=== PATIENT | female | born 1955 | race Caucasian/White ===

== ENCOUNTER 2025-02-25 06:29 | Inpatient (IN) ==
--- NOTE | 2025-02-06 11:27 | PAT Medication Instructions ---
Medication Instructions Date of Service February 06, 2025 Home Medications amlodipine 5 mg tablet 5 mg PO BID ascorbic acid (vitamin C) 500 mg tablet (Vitamin C) 500 mg PO DAILY cholecalciferol (vitamin D3) 25 mcg (1,000 unit) capsule (Vitamin D3) 25 mcg PO DAILY etanercept 50 mg/mL (1 mL) subcutaneous cartridge (Enbrel Mini) 50 mg subcut WK hydrochlorothiazide 25 mg tablet 25 mg PO QAM leflunomide 10 mg tablet 10 mg PO QAM magnesium 200 mg tablet 200 mg PO DAILY multivitamin 1 tab PO DAILY omega-3 fatty acids 1,000 mg PO DAILY potassium chloride 10 mEq tablet,extended release (Klor-Con) 20 meq PO QAM spironolactone 25 mg tablet 25 mg PO QAM zolpidem 10 mg tablet 10 mg PO HS PRN prn MEDICATION INSTRUCTIONS: STOP taking 2 weeks before surgery omega-3 fatty acids 1,000 mg PO DAILY DO NOT take the morning of surgery potassium chloride 10 mEq tablet,extended release (Klor-Con) 20 meq PO QAM spironolactone 25 mg tablet 25 mg PO QAM ascorbic acid (vitamin C) 500 mg tablet (Vitamin C) 500 mg PO DAILY cholecalciferol (vitamin D3) 25 mcg (1,000 unit) capsule (Vitamin D3) 25 mcg PO DAILY hydrochlorothiazide 25 mg tablet 25 mg PO QAM magnesium 200 mg tablet 200 mg PO DAILY multivitamin 1 tab PO DAILY Take morning of surgery With a small sip of water, OTHERWISE NOTHING TO EAT OR DRINK AFTER MIDNIGHT: amlodipine 5 mg tablet 5 mg PO BID Take evening before surgery amlodipine 5 mg tablet 5 mg PO BID zolpidem 10 mg tablet 10 mg PO HS PRN prn Other Notes ASK your prescriber for instructions: etanercept 50 mg/mL (1 mL) subcutaneous cartridge (Enbrel Mini) 50 mg subcut WK leflunomide 10 mg tablet 10 mg PO QAM If you have any questions please call us at [phone] or [phone] or [phone] or [phone]
--- NOTE | 2025-02-11 11:23 | Anesthesiology Consultation ---
Date of Service February 11, 2025 Assessment & Plan (1) Encounter for pre-operative examination: - Infectious disease screening: Per assessment on 02/11/25- No known recent infectious disease contacts or current infectious disease symptoms. - Hx Rheumatoid arthritis: Preop c-spine xray performed 02/11/25 notes Translational motion at C3-4. - Patient acceptable risk for surgery pending surgeon-ordered PCP clearance (Michaela METZGER/RAMANA Núñez, PCP "writing note" per patient). Chart Review Chart Review: Patient seen in Pre Admission Testing Teaching & Discussion Pre-Anesthesia Teaching/Discussion Notes: Instructed NPO after midnight before surgery,except medications with 15 cc of water. Medication instructions provided according to the PAT guidelines. History Surgery Operation Date: 02/25/25 07:45 Proposed Procedures p L2-L5 Decompression and Fusion, Possible L1-L2 Decompression and Fusion, Spinal Cord Monitoring - Adriel Nova, Height/Weight Height: 5 ft 4 in Weight: 99.8 kg Allergies Allergy/AdvReac Type Severity Reaction Status Date / Time ampicillin Allergy Severe Rash Verified 01/31/25 08:54 terbinafine Allergy Severe Diarrhea Verified 01/31/25 08:54 Medications Home Medications Medication Instructions Recorded Confirmed Last Taken amlodipine 5 mg tablet 5 mg PO BID 01/31/25 01/31/25 Unknown ascorbic acid (vitamin C) 500 mg 500 mg PO DAILY 01/31/25 01/31/25 Unknown tablet (Vitamin C) cholecalciferol (vitamin D3) 25 25 mcg PO DAILY 01/31/25 01/31/25 Unknown mcg (1,000 unit) capsule (Vitamin D3) etanercept 50 mg/mL (1 mL) 50 mg subcut WK 01/31/25 01/31/25 Unknown subcutaneous cartridge (Enbrel Mini) hydrochlorothiazide 25 mg tablet 25 mg PO QAM 01/31/25 01/31/25 Unknown leflunomide 10 mg tablet 10 mg PO QAM 01/31/25 01/31/25 Unknown magnesium 200 mg tablet 200 mg PO DAILY 01/31/25 01/31/25 Unknown multivitamin 1 tab PO DAILY 01/31/25 01/31/25 Unknown omega-3 fatty acids 1,000 mg PO DAILY 01/31/25 01/31/25 Unknown potassium chloride 10 mEq 20 meq PO QAM 01/31/25 01/31/25 Unknown tablet,extended release (Klor-Con) spironolactone 25 mg tablet 25 mg PO QAM 01/31/25 01/31/25 Unknown zolpidem 10 mg tablet 10 mg PO HS PRN prn 01/31/25 01/31/25 Unknown Past Medical History Medical History History of DVT (deep vein thrombosis) (2019) BL LE, was on AC x4 months (then discontinued) No issues since Hypertension Rheumatoid arthritis Follows with Dr Ho/RAMANA Sheffield Exercise / Class Metabolic Activity III < 4 Walking/Shop/Light housework Past Surgical History Surgical History History of bunionectomy of both great toes History of cardiac cath (~2019) no stents History of cataract surgery R/L History of colonoscopy History of neuroma removal- right foot History of tonsillectomy History of wisdom tooth extraction Past Anesthesia History No Hx of Anesthesia Complications and No Family Hx of Anesthesia Complications History of PONV No Hx of PONV and No Hx of Motion Sickness Social History Smoking Status: Never smoker Do You Dip or Chew Tobacco: No Hx Alcohol Use: Yes alcohol intake frequency: holidays/special occasions only Hx Substance Use: No substance use type: does not use Review of Systems Patient denies chest pain, shortness of breath, fever, chills, cough, wheezing. Physical Exam Vital Signs BP 135/90 P 98 TEMP 97.6 SP02 95%RA RESP 16 Physical Full cervical extension range of motion. Full TMJ range of motion. TMD > 3.5 finger breaths Mallampati Score III Dentition: intact Lungs: clear throughout to auscultation Cardiac: regular rate, regular rhythm with occasional extra beat, no murmurs noted Spine: normal Carotid arteries: negative bruit Extremities: no LE edema Lab Results Anesthesia Preop Results Results Anesthesia Widget: WBC 12.95 K/ul (4.8-10.8) H 02/11/25 Hgb 12.1 g/dl (12.0-16.0) 02/11/25 Hct 36.7 % (37.0-47.0) L 02/11/25 Plt 414 K/uL (130-400) H 02/11/25 Na 133 mmol/L (136-145) L 02/11/25 K 3.9 mmol/L (3.5-5.1) 02/11/25 Cl 97 mmol/L (98-107) L 02/11/25 CO2 26 mmol/L (21-32) 02/11/25 BUN 13 mg/dl (6-23) 02/11/25 Creat 1.03 mg/dl (0.6-1.2) 02/11/25 Glucose Level 115 mg/dl (70-99(Fasting)) H 02/11/25 PT 10.8 Seconds (9.0-12.0) 02/11/25 PTT 27 Seconds (21-31) 02/11/25 INR 1.0 (0.9-1.1) 02/11/25 Urine Color Yellow 02/11/25 Urine Appearance Clear (Clear) 02/11/25 Urine pH 6.5 (4.5-7.5) 02/11/25 Urine Specific Cunningham 1.001 (1.000-1.030) 02/11/25 Urine Protein Negative (Negative) 02/11/25 Urine Glucose (UA) Negative (Negative) 02/11/25 Urine Ketones Negative (Negative) 02/11/25 Urine Blood Negative (Negative) 02/11/25 Urine Nitrite Positive (Negative) A 02/11/25 Urine Bilirubin Negative (Negative) 02/11/25 Urine Urobilinogen Negative (Negative) 02/11/25 Urine Leukocyte Esterase 2+ (Negative) H 02/11/25 Urine WBC (Auto) >50 /hpf (0-5) H 02/11/25 Urine RBC (Auto) 0-2 /hpf (0-2) 02/11/25 Urine Hyaline Casts (Auto) 0-2 /lpf (0-2) 02/11/25 Urine Epithelial Cells (Auto) 3-5 /hpf (0-2) H 02/11/25 Urine Bacteria (Auto) 4+ (None Seen) H 02/11/25 Blood Type O Positive 02/11/25 Antibody Screen NEGATIVE 02/11/25 Testing Laboratory Results Urine culture (02/11/25): pending Surgeon's office made aware of elevated WBC/abnormal UA/pending urine culture* Electrocardiogram Date: 02/11/25 ST with occasional PVCs at 104bpm. "Otherwise normal ECG" Chest X-Ray Date: 02/11/25 Findings: + NAD Other Testing C-spine xray Date: 02/11/25 FINDINGS: There is moderate lower cervical degenerative disc disease. There is grade 1 anterolisthesis of C3 on 4 and C4 on 5 on the neutral view, which reduces with extension at C3-4 and remains stable at C4-5. No fracture seen. IMPRESSION: Translational motion at C3-4.
[2025-02-25] MEDS: LR 15ML/HR IV SCH (07:10)
[2025-02-25] MEDS: VANCOMYCIN HCL 1,500 MG in SODIUM CHLORIDE 0.9% 500 ML IV SCH (07:11)
[2025-02-25] MEDS: LR 60ML/HR IV SCH (07:11)
[2025-02-25] MEDS ORDERED: MIDAZOLAM HCL 1 MG/ML 2ML VIAL ONE (09:01)
[2025-02-25] MEDS ORDERED: PROPOFOL IV EMULSION 10 MG/ML 20 ML VIAL IV ONE (09:02)
[2025-02-25] MEDS ORDERED: LIDOCAINE 2% 2 ML VIAL/AMP(20MG/ML) INFIL ONE (09:02)
[2025-02-25] MEDS ORDERED: ROCURONIUM BROMIDE 10 MG/ML 5 ML VIAL IV ONE (09:02)
[2025-02-25] MEDS: ACETAMINOPHEN 500 MG TAB PO SCH (09:03)
[2025-02-25] MEDS: GABAPENTIN 300 MG CAP PO SCH (09:04)
[2025-02-25] MEDS: CeleBREX 200 MG CAP PO SCH (09:04)
[2025-02-25] MEDS ORDERED: ONDANSETRON INJ 2 MG/ML 2 ML VIAL IV PRN ×2 (09:16→14:54)
[2025-02-25] MEDS ORDERED: PROMETHAZINE HCL 6.25 MG in SODIUM CHLORIDE 0.9% 50 ML IV PRN (09:16)
[2025-02-25] MEDS ORDERED: HYDROmorphone INJ 1 MG/ML SYRINGE IV PRN (09:16)
[2025-02-25] MEDS ORDERED: FLUMAZENIL 0.1 MG/1 ML 10 ML VIAL IV PRN (09:16)
[2025-02-25] MEDS ORDERED: NALOXONE HCL 0.4 MG/1 ML VIAL/CARP IV PRN ×2 (09:16→14:54)
[2025-02-25] MEDS ORDERED: ATROPINE SULFATE 0.1 MG/ML 10ML SYR IV PRN (09:16)
--- NOTE | 2025-02-25 09:45 | History & Physical Bridge Note ---
Date of Service February 25, 2025 History & Physical Bridge Note I have examined the patient, reviewed the History & Physical and in the interval since the performance of the History & Physical I have noted the following changes of clinical significance: no changes noted
--- NOTE | 2025-02-25 09:47 | History & Physical Report ---
Date of Service February 25, 2025 Assessment & Plan (1) Other spondylosis with radiculopathy, lumbar region: Plan: L2-L5 decompression and fusion, possible L1-L2 decompression fusion History of Present Illness Chief Complaint: Back and bilateral leg pain Primary Care Provider: Michaela Donnelly NP This is a 61-year-old female who presents with chronic persistent back and bilateral knee pain after failing course of nonoperative care is here for surgical invention. Allergies Allergy/AdvReac Type Severity Reaction Status Date / Time ampicillin Allergy Severe Rash Verified 02/25/25 06:53 terbinafine Allergy Severe Diarrhea Verified 02/25/25 06:53 Home Medications Medication Instructions Recorded Confirmed Type amlodipine 5 mg tablet 5 mg PO BID 01/31/25 02/25/25 History ascorbic acid (vitamin C) 500 mg 500 mg PO DAILY 01/31/25 02/25/25 History tablet (Vitamin C) cholecalciferol (vitamin D3) 25 25 mcg PO DAILY 01/31/25 02/25/25 History mcg (1,000 unit) capsule (Vitamin D3) etanercept 50 mg/mL (1 mL) 50 mg subcut WK 01/31/25 02/25/25 History subcutaneous cartridge (Enbrel Mini) hydrochlorothiazide 25 mg tablet 25 mg PO QAM 01/31/25 02/25/25 History leflunomide 10 mg tablet 10 mg PO QAM 01/31/25 02/25/25 History magnesium 200 mg tablet 200 mg PO DAILY 01/31/25 02/25/25 History multivitamin 1 tab PO DAILY 01/31/25 02/25/25 History omega-3 fatty acids 1,000 mg PO DAILY 01/31/25 02/25/25 History potassium chloride 10 mEq 20 meq PO QAM 01/31/25 02/25/25 History tablet,extended release (Klor-Con) spironolactone 25 mg tablet 25 mg PO QAM 01/31/25 02/25/25 History zolpidem 10 mg tablet 10 mg PO HS PRN prn 01/31/25 02/25/25 History Past Med/Surg History Problem List (Updated 02/25/25 @ 09:46 by Adriel Nova DO) Other spondylosis with radiculopathy, lumbar region Encounter for pre-operative examination Medical History History of DVT (deep vein thrombosis) (2019) BL AQUILINO, was on AC x4 months (then discontinued) No issues since Hypertension Rheumatoid arthritis Follows with Dr Ho/RAMANA Sheffield Surgical History History of bunionectomy of both great toes History of cardiac cath (~2019) no stents History of cataract surgery R/L History of colonoscopy History of neuroma removal- right foot History of tonsillectomy History of wisdom tooth extraction Social History Smoking Status: Never smoker Second Hand Exposure: No; Do You Dip or Chew Tobacco: No; Tobacco Cessation Education Requested by Patient: No Hx Alcohol Use: Yes Hx Substance Use: No Preferred Language: Upper Sorbian Shorts Sifter Required: No Beliefs That Will Affect Care: None Current Living Situation: Spouse Other Information That Helps Us Care for You: No Feels Safe at Home: Yes Safety Concerns: Feels Safe At This Time Assistive Devices: Cane, Glasses and Walker Physical Exam Physical Exam: Patient is alert and oriented heart regular rhythm Lungs clear Results & Data Results & Data Vital Signs (Past 12 Hours) Vital Signs Temp Pulse Resp BP Pulse Ox O2 Del Method 02/25/25 07:15 36.4 C L 105 H 20 153/94 H 93 Room Air
[2025-02-25] MEDS ORDERED: PHENYLEPHRINE 100MCG/ML 5ML SYR ONE (10:41)
[2025-02-25] MEDS ORDERED: KETAMINE HCL 10MG/ML SYR ONE (10:42)
[2025-02-25] MEDS ORDERED: HYDROmorphone INJ 2 MG/ML SYR/VIAL ONE (10:49)
[2025-02-25] MEDS: BUPIVACAINE/EPINEPHRINE 0.25% 1:200,000 30 ML VIAL ONE (11:07)
[2025-02-25] MEDS ORDERED: KETOROLAC 30 MG/ML VIAL ONE (12:01)
[2025-02-25] MEDS ORDERED: SUGAMMADEX SODIUM 200 MG/2 ML VIAL IV ONE (12:30)
[2025-02-25] MEDS ORDERED: ARTIFICIAL TEARS OP OINT 3.5 GM TUBE ONE (12:39)
--- NOTE | 2025-02-25 12:47 | Operative Report ---
Post Operative Report Pre & Post Diagnosis Operation Date: 02/25/25 10:05 Pre-Op Diagnosis: #1 lumbar spondylosis with radiculopathy #2 lumbar spinal stenosis post-Op Diagnosis: Same I identified the patient and participated in the time-out.: Yes Procedure Operation Date: 02/25/25 10:05 Actual Procedures #1 lumbar decompression with bilateral medial facetectomies and foraminotomies L1-L2, L2-L3, L3-L4 and L4-L5. #2 posterior spinal fusion L2-L5 #3 placement posterior segmental instrumentation L2-L5 using camber. #4 interbody fusion L2- L3, L3-L4 L4-5. #5 placement of Spira 11 x 26 mm at L2-L3, 12 x 26 mm x 2 at L3-L4 and 13 x 26 mm x 2 at L4-5. #6 placement of locally harvested morselized autograft in the posterior gutters. #7 please infuse collagen sponge, with Koros in the posterior lateral gutters and os design interbody space. #8 application of versa wrap of the exposed dura. Surgeon Adriel Nova, DO [employer] Coni Hernandez Estimated Blood Loss 350 Findings See Below The patient is 5 foot 4 weighing over 96 kg with a BMI in excess of 36. The patient's body was to contribute to significant technical difficulty with positioning exposure and the procedure itself adding at least 50% increased operative time. Specimens None Indications This is a 69-year-old female the presents above-mentioned diagnosis after failing course of nonoperative care is here for the above-mentioned surgery. Description of Procedure Patient was met with identified informed consent obtained. Patient was then taken to the operative suite underwent intubation placed in a prone position on the Dustin table atop the Waqas frame. All bony promises well-padded eyes inspected to ensure no external pressure placed upon them. This point the lumbar spine was prepped and draped in normal sterile fashion sharp dissection with the assistance of Bovie cautery from down to and exposing the lamina and transverse processes of L 2 L3-L4-L5 bilaterally. From a caudal cephalad fashion complete laminectomy of L4 was performed including bilateral medial face tectomies and foraminotomies followed by complete laminectomy of L3 with bilateral medial facetectomies and foraminotomies followed by laminotomy of L2 with complete bilateral medial facetectomies and foraminotomies and lastly partial laminectomy of L1 with bilateral subarticular decompression to address all stenosis. After complete decompression pedicle screws were placed at L2-L3 L4-5 bilaterally with assistance of fluoroscopy and appropriate sized rakesh placed. By way the transforaminal approach on the right discectomy of L for L5 was performed endplates guarded to subcortical bleeding bone and a 13 x 26 mm spiral cage filled with os design bone graft tapped in position. I then proceeded to the left transforaminal region at L4-5. Again discectomy performed. Endplates guided to subcortical bleeding bone. A second 13 x 26 mm spiral cage filled with os design zyme tapped into position. Then proceeded to L3-L4. By way of transforaminal approach on the left discectomy performed. Endplates guided to subcortical bleeding bone. A 12 x 26 mm Spira cage filled with os design bone graft tapped in position. Then proceeded to the right transforaminal region at L3-L4. Again the discectomy performed. Endplates guided to subcortical being bone and a second 12 x 26 mm spiral cage filled with Oxyzyme tapped in position. And then I proceeded to L2-L3 by way of transforaminal approach on the right a complete discectomy was performed endplates guided to subcortical bleeding bone and an 11 x 26 mm spiral cage filled with os design bone graft tapped in position. The rods were then compressed locked in a final position bilaterally but the transverse processes of L2-L3 L4-5 burred to subcortical the bone. Infuse collagen sponge, with Koros and local autograft placed in posterior gutters. First wrap placed over the exposed dura. 15 round EMILY drain inserted. The incision was then closed with 1 Vicryl the fascia 2-0 Vicryl subcutaneously and 4 Monocryl for final skin closure. Steri-Strips sterile dressing placed. Patient waken taken PACU stable condition. Please note Coni Hernandez was present at the entire procedure and while the patient positioning complex parts of the surgery and final skin closure. Im ordering 10 grams of Collagen Powder ([facility] A6010 Primary Dressing) and 10 bordered super absorbent ([facility] A6196 Secondary Dressing) to treat an incision wound that was caused by a spine procedure. The incision is approximately 2 cm(W) x 2 cm(L) down to the spinal column and epidural space 2 cm (D) in size and is a full thickness wound showing no signs of infection. Collagen comes in 1 gram packets so 10 packets were ordered. Given the size of the wound, with moderate exudate I chose to order a 10 day supply. The patient will be provided instructions for proper application of the collagen wound kit. The patient will be asked to apply the collagen powder daily and then cover it with sterile dressings dispensed. Collagen was selected as I expect the collagen to attract monocytes and fibroblasts, act as a sacrificial substrate for MMPs, and ultimately proved a matrix for tissue and vessel growth. The collagen will act as a primary dressing in this scenario. It is medically necessary for proper healing of these wounds to improve bioavailability and contact with each wound surface, this is also to help prevent infection of wounds and promote healing ultimately leading to a better healing outcome and limit the risk of infection. I attest to the content of the Intraoperative Record and any orders documented therein. Any exceptions are noted below.
--- NOTE | 2025-02-25 14:16 | Anesthesiology Progress Note ---
Date of Service February 25, 2025 Anesthesia Post Procedure Vital Signs Vital Signs: Temp Pulse Pulse Resp BP Pulse Ox O2 Del Method 02/25/25 14:10 36.4 C L 94 H 14 132/86 95 Nasal Cannula 02/25/25 14:00 36.4 C L 96 H 12 154/84 H 98 Nasal Cannula 02/25/25 13:50 95 H 12 152/87 H 98 Oxymask 02/25/25 13:40 93 H 12 120/68 98 Oxymask 02/25/25 13:30 95 H 12 115/94 95 Oxymask 02/25/25 13:20 85 16 118/87 99 Oxymask 02/25/25 13:10 82 15 122/69 99 Oxymask 02/25/25 13:05 81 15 140/76 98 Oxymask 02/25/25 12:59 36.3 C L 80 13 127/73 97 Oxymask 02/25/25 07:15 36.4 C L 105 H 20 153/94 H 93 Room Air O2 Flow Rate 02/25/25 14:10 2 02/25/25 14:00 2 02/25/25 13:50 2 02/25/25 13:40 2 02/25/25 13:30 2 02/25/25 13:20 6 02/25/25 13:10 6 02/25/25 13:05 6 02/25/25 12:59 6 02/25/25 07:15 Pain Intensity Right Leg: Pain Intensity: 6 Back: Pain Intensity: 6 Transfer of Care Handoff Completed per policy Notes Mental Status: alert / awake / arousable Patient Amnestic to Procedure: Yes Nausea / Vomiting: adequately controlled Pain: adequately controlled Airway Patency, RR, SpO2: stable & adequate BP & HR: stable & adequate Hydration State: stable & adequate Anesthetic Complications: no major complications apparent
--- NOTE | 2025-02-25 14:22 | Fluoroscopy Report ---
FL lumbar spine 2-3V CLINICAL HISTORY: L1-L5 Decompression/fusion COMPARISON STUDY: None FLUOROSCOPY TIME: 33 seconds FLUOROSCOPY IMAGES: 3 EXPOSURE DOSE: 40 mGy FINDINGS: Fluoroscopy was provided for lumbar metallic fusion. IMPRESSION: Intraoperative fluoroscopy. ACT 112: Negative or not required by law. Electronically signed by: Sina Weber M.D. 02/25/2025 2:21 PM
[2025-02-25] MEDS ORDERED: ACETAMINOPHEN 1,000 MG/100 ML VIAL IV PRN (14:54)
[2025-02-25] MEDS ORDERED: LORazepam 0.5 MG TAB PO PRN (14:54)
[2025-02-25] MEDS ORDERED: DO NOT ADMINISTER FLU VACCINE PRN (14:54)
[2025-02-25] MEDS ORDERED: PROMETHAZINE 12.5 MG/50.5 ML BAG IV PRN (14:54)
[2025-02-25] MEDS ORDERED: HYDROmorphone INJ 0.5 MG/0.5 ML SYR IV PRN (14:54)
[2025-02-25] MEDS ORDERED: METOCLOPRAMIDE HCL INJ 5 MG/ML 2 ML VIAL IV PRN (14:54)
[2025-02-25] MEDS ORDERED: SOD PHOSPHATE/SOD BIPHOSPHATE ENEMA 132 ML BTL PR PRN (14:54)
[2025-02-25] MEDS ORDERED: DO NOT ADMINISTER PNEUMOCOCCAL VACCINE PRN (14:54)
[2025-02-25] MEDS: ceFAZolin 330 MG/ML 1 GM VIAL ONE (15:01)
[2025-02-25] MEDS: FLOSEAL HEMOSTATIC MATRIX 10ML TOP ONE (15:02)
--- NOTE | 2025-02-25 15:23 | Hospitalist Consultation ---
Date of Consultation February 25, 2025 Assessment & Plan (1) Other spondylosis with radiculopathy, lumbar region: POD#0 L1-L5 decompression and fusion by Dr. 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 labs (3) Rheumatoid arthritis: Hold leflunomide DVT PROPHYLAXIS TEDs/SCDs as per spine Ortho Patient seen in collaboration with Dr. Mack. Thank you for this consultation. We will follow the patient with you during their hospital stay. You can reach a member of the [employer] Hospitalist Team 18/04 via the [facility] role in [place] Text.. Supervising Physician Co-Signing Physician Notes Patient is a 69-year-old female with history of rheumatoid arthritis and other medical problems was consulted for postop medical management. Patient had lumbar decompression, fusion surgery by Dr. Nova. Patient is doing well postoperatively. She denies any significant back pain at surgical site. No other complaints. Physical Exam: Vitals signs as noted above General Appearance:Obese, no apparent distress Head: normocephalic, Atraumatic Eyes: normal inspection, EOMI Neck: supple, Trachea midline Respiratory/Chest: Normal breath sounds, CTA, No accessory muscle use Cardiovascular: S1, S2, No murmur Abdomen/GI:Soft, Non tender, Bowel sounds present Back+Surgical site in dressing,+drain Extremities/Musculoskeletal:normal inspection, no edema Neurologic/Psych:AAOX3, grossly no focal neurological deficits Skin: normal color, warm Lumbar spinal stenosis with radiculopathy Monitor for postop anemia Activity, wound care, DVT prophylaxis per primary team Bowel regimen to prevent constipation Continue incentive spirometry PT OT as able Gentle IV fluids Wean off of supplemental oxygen as able Rheumatoid arthritis Agree with holding leflunomide given can delay wound healing I personally interviewed and examined the patient at bedside. I have reviewed the advanced practitioner's documentation on the date of service referred in note and agree with plan. Patient's care is coordinated with Carlota Mckinley STORE STANDARDS ASSOCIATE. Please refer to the documentation above for details of patient's presentation and for discussion of other issues. I spent a total [id number] coordinating, documenting, and providing care for this patient excluding time spent in the performance of separately billed services or time spent by another provider/QHP. History of Present Illness Reason for Consultation: Postop medical management Requesting Physician: Dr. Nova History of Present Illness 69-year-old female with PMH HTN, rheumatoid arthritis, hx of DVT s/p anticoagulation, and other problems listed below who is s/p L1-L5 decompression and fusion today by Dr. Nova. Postoperatively, the patient is doing well. She reports her pain is well-controlled. She denies any numbness, tingling, weakness to lower extremities. No chest pain or shortness of breath. Denies abdominal pain or nausea. No lightheadedness or dizziness. Allergies Allergy/AdvReac Type Severity Reaction Status Date / Time ampicillin Allergy Severe Rash Verified 02/25/25 06:53 terbinafine Allergy Severe Diarrhea Verified 02/25/25 06:53 Home Medications Medication Instructions Recorded Confirmed Type amlodipine 5 mg tablet 5 mg PO BID 01/31/25 02/25/25 History ascorbic acid (vitamin C) 500 mg 500 mg PO DAILY 01/31/25 02/25/25 History tablet (Vitamin C) cholecalciferol (vitamin D3) 25 25 mcg PO DAILY 01/31/25 02/25/25 History mcg (1,000 unit) capsule (Vitamin D3) etanercept 50 mg/mL (1 mL) 50 mg subcut WK 01/31/25 02/25/25 History subcutaneous cartridge (Enbrel Mini) hydrochlorothiazide 25 mg tablet 25 mg PO QAM 01/31/25 02/25/25 History leflunomide 10 mg tablet 10 mg PO QAM 01/31/25 02/25/25 History magnesium 200 mg tablet 200 mg PO DAILY 01/31/25 02/25/25 History multivitamin 1 tab PO DAILY 01/31/25 02/25/25 History omega-3 fatty acids 1,000 mg PO DAILY 01/31/25 02/25/25 History potassium chloride 10 mEq 20 meq PO QAM 01/31/25 02/25/25 History tablet,extended release (Klor-Con) spironolactone 25 mg tablet 25 mg PO QAM 01/31/25 02/25/25 History zolpidem 10 mg tablet 10 mg PO HS PRN prn 01/31/25 02/25/25 History Patient History Medical History History of DVT (deep vein thrombosis) (2019) BL AQUILINO, was on AC x4 months (then discontinued) No issues since Hypertension Rheumatoid arthritis Follows with Dr Ho/RAMANA [place] Surgical History History of bunionectomy of both great toes History of cardiac cath (~2019) no stents History of cataract surgery R/L History of colonoscopy History of neuroma removal- right foot History of tonsillectomy History of wisdom tooth extraction Social History Smoking Status: Never smoker Second Hand Exposure: No; Do You Dip or Chew Tobacco: No; Tobacco Cessation Education Requested by Patient: No Hx Alcohol Use: Yes Hx Substance Use: No Preferred Language: [place]au[place] Rivet Passer Required: No Beliefs That Will Affect Care: None Current Living Situation: Spouse Other Information That Helps Us Care for You: No Feels Safe at Home: Yes Safety Concerns: Feels Safe At This Time Assistive Devices: Cane, Glasses and Walker Physical Exam Physical Exam: please refer to Dr. Mack's addendum for physical exam Results & Data Results & Data Vital Signs (Past 12 Hours) Vital Signs Temp Pulse Pulse Resp BP Pulse Ox O2 Del Method 02/25/25 15:13 36.6 C 94 H 18 131/75 94 Room Air 02/25/25 14:58 Nasal Cannula 02/25/25 14:40 36.5 C 98 H 16 129/76 99 Nasal Cannula 02/25/25 14:20 96 H 14 139/78 95 Nasal Cannula 02/25/25 14:10 36.4 C L 94 H 14 132/86 95 Nasal Cannula 02/25/25 14:00 36.4 C L 96 H 12 154/84 H 98 Nasal Cannula 02/25/25 13:50 95 H 12 152/87 H 98 Oxymask 02/25/25 13:40 93 H 12 120/68 98 Oxymask 02/25/25 13:30 95 H 12 115/94 95 Oxymask 02/25/25 13:20 85 16 118/87 99 Oxymask 02/25/25 13:10 82 15 122/69 99 Oxymask 02/25/25 13:05 81 15 140/76 98 Oxymask 02/25/25 12:59 36.3 C L 80 13 127/73 97 Oxymask 02/25/25 07:15 36.4 C L 105 H 20 153/94 H 93 Room Air O2 Flow Rate 02/25/25 15:13 02/25/25 14:58 2 02/25/25 14:40 2 02/25/25 14:20 2 02/25/25 14:10 2 02/25/25 14:00 2 02/25/25 13:50 2 02/25/25 13:40 2 02/25/25 13:30 2 02/25/25 13:20 6 02/25/25 13:10 6 02/25/25 13:05 6 02/25/25 12:59 6 02/25/25 07:15
[2025-02-25] MEDS: DOCUSATE SODIUM/SENNA 50/8.6MG TAB PO SCH (20:18)
[2025-02-26] MEDS: POLYETHYLENE (MIRALAX) 17 GM PACK PO SCH (05:11)
[2025-02-26 06:51] LABS: Hematocrit (blood only) 29.1 % (37.0-47.0); Hemoglobin 9.5 g/dl (12.0-16.0); Immature Granulocytes # (auto) 0.21 K/uL (0.01-0.20); Immature Granulocytes % (auto) 1.1 %; Mean Corpuscular Hemoglobin 27.6 pg (25.0-34.0); Mean Corpuscular Volume 84.6 fL (80.0-100.0); Platelet Count 430 K/uL (130-400); RDW Standard Deviation 42.1 fL (36.4-46.3); Red Blood Count 3.44 M/uL (4.20-5.40); White Blood Count 19.78 K/ul (4.8-10.8)
[2025-02-26 07:01] LABS: Anion Gap 7.0 (3-11); Blood Urea Nitrogen 18.0 mg/dl (6-23); Calcium 8.8 mg/dl (8.6-10.3); Carbon Dioxide 26.0 mmol/L (21-32); Chloride 98.0 mmol/L (98-107); Creatinine Clr Calc Pharmacy 60.7 ml/min; Glucose 149.0 mg/dl (70-99(Fasting)); Magnesium 1.5 mg/dl (1.7-2.4); Potassium 4.7 mmol/L (3.5-5.1); Sodium 131.0 mmol/L (136-145)
[2025-02-26] MEDS: MAGNESIUM OXIDE 400 MG TAB PO SCH (08:10)
[2025-02-26] MEDS: MULTIVITAMIN TAB PO SCH (08:10)
[2025-02-26] MEDS: CHOLECALCIFEROL 25 MCG (1000 UNITS) TAB PO SCH (08:10)
[2025-02-26] MEDS: MAGNESIUM SULFATE / D5W 1 GM/100 ML BAG IV SCH (08:20)
[2025-02-26] MEDS: POTASSIUM CHLORIDE 10 MEQ TABCR PO SCH (08:20)
[2025-02-26] MEDS: dexAMETHasone 6 MG in SYRINGE 0 ML IV SCH (08:20)
[2025-02-26] MEDS ORDERED: SPIRONOLACTONE 25 MG TAB PO SCH (09:00)
[2025-02-26] MEDS ORDERED: LEFLUNOMIDE 10 MG TAB PO SCH (09:00)
[2025-02-26] MEDS ORDERED: hydroCHLOROthiazide 25 MG TAB PO SCH (09:00)
[2025-02-26] MEDS: ASCORBIC ACID 500 MG TAB PO SCH (09:32)
--- NOTE | 2025-02-26 11:56 | Hospitalist Progress Note ---
Date of Service February 26, 2025 Assessment & Plan (1) Other spondylosis with radiculopathy, lumbar region: Plan: POD#1 L1-L5 decompression and fusion by Dr. 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 Coli Patient asymptomatic, did not receive treatment, continues to be asymptomatic (6) Rheumatoid arthritis: Plan: Hold leflunomide DVT PROPHYLAXIS TEDs/SCDs as per spine Ortho Patient seen in collaboration with Dr. Mack. Thank you for this consultation. We will follow the patient with you during their hospital stay. You can reach a member of the [facility] Hospitalist Team 18/04 via the [place] Hospitalist role in [place] Text. I spent a total of 35 minutes coordinating, documenting, and providing care for this patient excluding time spent in the performance of separately billed services. This included personally reviewing all current laboratories and imaging studies, medication reconciliation, outpatient chart review, and discussion with specialists. (7) Hyponatremia: Admission and Anticipated Discharge Date Admission Date: February 25, 2025 Supervising Physician Co-Signing Physician Notes Patient is seen and examined at bedside. Reports having back pain and feels tired today. No other specific complaints. Family at bedside. Physical Exam: Vitals signs as noted above General Appearance:Obese, no apparent distress Head: normocephalic, Atraumatic Eyes: normal inspection, EOMI Neck: supple, Trachea midline Respiratory/Chest: Normal breath sounds, CTA, No accessory muscle use Cardiovascular: S1, S2, No murmur Abdomen/GI:Soft, Non tender, Bowel sounds present Back+Surgical site in dressing,+drain Extremities/Musculoskeletal:normal inspection, no edema Neurologic/Psych:AAOX3, grossly no focal neurological deficits Skin: normal color, warm Lumbar spinal stenosis with radiculopathy Postoperative acute blood loss anemia Activity, wound care, DVT prophylaxis per primary team Continue bowel regimen to prevent constipation Continue incentive spirometry PT OT Encouraged to ambulate Leukocytosis likely reactive, secondary to steroids Monitor CBC Hypertension Continue amlodipine Resume home diuretics as able Blood pressure slightly elevated due to pain, steroids Monitor blood pressure closely Rheumatoid arthritis Agree with holding leflunomide given can delay wound healing I personally interviewed and examined the patient at bedside. I have reviewed the advanced practitioner's documentation on the date of service referred in note and agree with plan. Patient's care is coordinated with Carlota Mckinley CUBE CUTTER. Please refer to the documentation above for details of patient's presentation and for discussion of other issues. I spent a total [id number] coordinating, documenting, and providing care for this patient excluding time spent in the performance of separately billed services or time spent by another provider/QHP. Subjective Follow-up for medical management. Patient seen and examined. Sitting up in the chair. Reports having some increased pain as she just worked with therapy. Appears comfortable. Denies chest pain and shortness of breath. No lightheadedness or dizziness. Denies abdominal pain and nausea. Haywood catheter remains in place. Review of Systems Review of Systems: All systems reviewed & are unremarkable except as noted in Subjective Physical Exam Constitutional: WD/WN, vitals as above no acute distress Respiratory: normal respiratory effort, lungs clear to auscultation Cardiovascular: Rate/Rhythm: regular rate and regular rhythm Vessels: normal peripheral pulses Extremities: no edema Gastrointestinal (Abdomen): Percussion/Palpation: abdomen soft; abdomen nontender Musculoskeletal: s/p back surgery, strength slightly weaker on the RLE - chronic per patient Skin: no rashes, warm and dry Neurologic: no focal motor deficits Psychiatric: A+Ox3, euthymic affect Results & Data Results & Data Vital Signs (Past 12 Hours) Vital Signs Temp Pulse Resp BP Pulse Ox O2 Del Method O2 Flow Rate 02/26/25 11:38 97 H 18 158/95 H 97 Room Air 02/26/25 07:06 36.4 C L 99 H 18 132/78 97 Nasal Cannula 2 02/26/25 03:00 36.5 C 99 H 18 148/81 H 97 Nasal Cannula 2 Laboratory Results Short CBC 02/26/25 Range/Units 05:26 WBC 19.78 H (4.8-10.8) K/ul Hgb 9.5 L (12.0-16.0) g/dl Hct 29.1 L (37.0-47.0) % Plt Count 430 H (130-400) K/uL [facility] 02/26/25 05:26 Sodium 131 L Potassium 4.7 Chloride 98 Carbon Dioxide 26 BUN 18 Creatinine 1.00 Glucose 149 H Calcium 8.8
--- NOTE | 2025-02-26 13:51 | Orthopedic Progress Note ---
Date of Service February 26, 2025 Assessment & Plan (1) Other spondylosis with radiculopathy, lumbar region: Plan: At this time we will continue physical therapy monitor her EMILY operatively discharge home in the next few days. Admission and Anticipated Discharge Date Admission Date: February 25, 2025 Subjective Patient's back pain is controlled leg symptoms markedly improved Physical Exam Physical Exam: Patient is in the chair at the bedside. She is comfortable. Has good strength testing. Results & Data Vital Signs (Past 12 Hours) Vital Signs Temp Pulse Resp BP Pulse Ox O2 Del Method O2 Flow Rate 02/26/25 11:38 97 H 18 158/95 H 97 Room Air 02/26/25 07:50 Room Air 02/26/25 07:06 36.4 C L 99 H 18 132/78 97 Nasal Cannula 2 02/26/25 03:00 36.5 C 99 H 18 148/81 H 97 Nasal Cannula 2 Queries Orthopedic Spine Acute Posthemorrhagic Anemia: Yes Obesity: Yes
[2025-02-26] MEDS: ACETAMINOPHEN 500 MG TAB PO PRN (16:41)
[2025-02-26] MEDS: ONDANSETRON 4 MG OD TAB PO PRN (18:26)
[2025-02-26] MEDS: FAMOTIDINE 20 MG TAB PO PRN (18:26)
[2025-02-26] MEDS: ONDANSETRON 4 MG OD TAB ONE (18:27)
[2025-02-27 06:59] LABS: Hematocrit (blood only) 27.1 % (37.0-47.0); Hemoglobin 8.9 g/dl (12.0-16.0); Mean Corpuscular Hemoglobin 27.2 pg (25.0-34.0); Mean Corpuscular Volume 82.9 fL (80.0-100.0); Platelet Count 437 K/uL (130-400); RDW Standard Deviation 41.1 fL (36.4-46.3); Red Blood Count 3.27 M/uL (4.20-5.40); White Blood Count 17.40 K/ul (4.8-10.8)
[2025-02-27 07:19] LABS: Anion Gap 7.0 (3-11); Blood Urea Nitrogen 19.0 mg/dl (6-23); Calcium 8.6 mg/dl (8.6-10.3); Carbon Dioxide 27.0 mmol/L (21-32); Chloride 97.0 mmol/L (98-107); Creatinine Clr Calc Pharmacy 65.9 ml/min; Glucose 140.0 mg/dl (70-99(Fasting)); Magnesium 2.1 mg/dl (1.7-2.4); Potassium 4.7 mmol/L (3.5-5.1); Sodium 131.0 mmol/L (136-145)
--- NOTE | 2025-02-27 08:47 | Orthopedic Progress Note ---
Date of Service February 27, 2025 Assessment & Plan (1) Other spondylosis with radiculopathy, lumbar region: Plan: At this time we will continue physical therapy monitor EMILY output hopefully discharge home in the next few days. Admission and Anticipated Discharge Date Admission Date: February 25, 2025 Subjective Back pain is controlled leg symptoms improved. Physical Exam Physical Exam: Patient is in the chair at the bedside. She is comfortable. Distracted testing. Results & Data Vital Signs (Past 12 Hours) Vital Signs Temp Pulse Resp BP Pulse Ox O2 Del Method 02/27/25 07:08 36.6 C 102 H 18 134/79 92 Room Air Queries Orthopedic Spine Acute Posthemorrhagic Anemia: Yes Obesity: Yes
--- NOTE | 2025-02-27 11:11 | Hospitalist Progress Note ---
Date of Service February 27, 2025 Assessment & Plan (1) Other spondylosis with radiculopathy, lumbar region: Plan: POD#2 L1-L5 decompression and fusion by Dr. Nova Activity and wound care orders as per ortho Pain control with bowel regimen PT/OT Monitor H/H for acute blood loss anemia and transfuse blood products PRN EBL 350cc, EMILY output 620cc thus far (2) Acute blood loss anemia: Plan: Pre op hgb 12.1 -> 9.5 -> 8.9 No indication for transfusion at this time Continue to monitor CBC (3) Hyponatremia: Plan: Mild, Na+ 131 Continue to hold diuretics Monitor BMP (4) Tachycardia: Plan: HR in the 90s-low 100s EKG shows sinus tach May be due to anemia Patient asymptomatic (5) Hypertension: Plan: BP currently controlled Continue [facility] amlodipine Continue to hold HCTZ and spironolactone for now due to mild hyponatremia (6) Leukocytosis: Plan: WBC 19K -> 17K -- likely due to steroids Continue to monitor CBC (7) History of UTI: Plan: Pre op urine culture + ESBL E. Coli Patient asymptomatic, did not receive treatment, continues to be asymptomatic (8) Rheumatoid arthritis: Plan: Hold leflunomide DVT PROPHYLAXIS TEDs/SCDs as per spine Ortho Thank you for this consultation. We will follow the patient with you during their hospital stay. You can reach a member of the [facility] Hospital[facility] Team 18/[address] [facility] [place] Text. I spent a total of 35 minutes coordinating, documenting, and providing care for this patient excluding time spent in the performance of separately billed s ervices. This included personally reviewing all current laboratories and imaging studies, medication reconciliation, outpatient chart review, and discussion with specialists. Admission and Anticipated Discharge Date Admission Date: February 25, 2025 Supervising Physician Co-Signing Physician Notes Patient seen and examined Agree with plans as detailed by Carlota METZGER Subjective Follow for medical management, s/p L1 L5 decompression and fusion. Patient seen and examined. Sitting up in the chair. Reports her pain is well- controlled. Denies numbness or tingling to lower extremities. Haywood catheter removed yesterday, urinating without difficulty. + BM yesterday. Denies abdominal pain and nausea. Physical Exam Constitutional: WD/WN, vitals as above no acute distress Respiratory: normal respiratory effort, lungs clear to auscultation Cardiovascular: Rate/Rhythm: regular rhythm and + tachycardic Vessels: normal peripheral pulses Extremities: no edema Musculoskeletal: s/p back surgery, strength strong an equal BLE, drain in place draining bloody drainage Skin: no rashes, warm and dry Neurologic: no focal motor deficits Psychiatric: A+Ox3, euthymic affect Results & Data Results & Data Vital Signs (Past 12 Hours) Vital Signs Temp Pulse Resp BP Pulse Ox O2 Del Method 02/27/25 07:08 36.6 C 102 H 18 134/79 92 Room Air Laboratory Results Short CBC 02/27/25 Range/Units 06:19 WBC 17.40 H (4.8-10.8) K/ul Hgb 8.9 L (12.0-16.0) g/dl Hct 27.1 L (37.0-47.0) % Plt Count 437 H (130-400) K/uL BMP 02/27/25 06:19 Sodium 131 L Potassium 4.7 Chloride 97 L Carbon Dioxide 27 BUN 19 Creatinine 0.92 Glucose 140 H Calcium 8.6
[2025-02-27] MEDS: diphenhydrAMINE Capsule 25 MG CAP PO PRN (20:24)
[2025-02-28 06:54] LABS: Hematocrit (blood only) 27.5 % (37.0-47.0); Hemoglobin 9.1 g/dl (12.0-16.0); Mean Corpuscular Hemoglobin 27.4 pg (25.0-34.0); Mean Corpuscular Volume 82.8 fL (80.0-100.0); Platelet Count 441 K/uL (130-400); RDW Standard Deviation 41.2 fL (36.4-46.3); Red Blood Count 3.32 M/uL (4.20-5.40); White Blood Count 18.79 K/ul (4.8-10.8)
[2025-02-28 07:11] LABS: Anion Gap 6.0 (3-11); Blood Urea Nitrogen 20.0 mg/dl (6-23); Calcium 9.0 mg/dl (8.6-10.3); Carbon Dioxide 29.0 mmol/L (21-32); Chloride 97.0 mmol/L (98-107); Creatinine Clr Calc Pharmacy 78.8 ml/min; Glucose 123.0 mg/dl (70-99(Fasting)); Potassium 5.2 mmol/L (3.5-5.1); Sodium 132.0 mmol/L (136-145)
--- NOTE | 2025-02-28 08:22 | Orthopedic Progress Note ---
Date of Service February 28, 2025 Assessment & Plan (1) Other spondylosis with radiculopathy, lumbar region: Plan: Today we will continue physical therapy and anticipate discharge home tomorrow. Admission and Anticipated Discharge Date Admission Date: February 25, 2025 Subjective Patient's very sore today. But tolerating therapy. She ambulated several times yesterday. Physical Exam Physical Exam: Patient is still in bed. She is good strength testing. Is comfortable. Results & Data Vital Signs (Past 12 Hours) Vital Signs Temp Pulse Resp BP Pulse Ox O2 Del Method 02/28/25 07:47 Room Air 02/28/25 07:12 36.6 C 119 H 18 157/82 H 91 Room Air 02/27/25 22:04 37 C 106 H 16 136/78 95 Room Air Queries Orthopedic Spine Acute Posthemorrhagic Anemia: Yes Obesity: Yes
--- NOTE | 2025-02-28 12:03 | Hospitalist Progress Note ---
Date of Service February 28, 2025 Assessment & Plan (1) Other spondylosis with radiculopathy, lumbar region: (2) Acute blood loss anemia: (3) Tachycardia: (4) Leukocytosis: (5) Hyponatremia: (6) Hyperkalemia: (7) Hypertension: (8) Hyperlipidemia: (9) Rheumatoid arthritis: Plan 69 year old female with PMH significant for hypertension, hyperlipidemia, rheumatoid arthritis, palpitations, history of bilateral pulmonary emboli, and lumbar spondylosis with radiculopathy who underwent L1-L5 decompression and fusion on 02/25/[address] Nova. We have been consulted for post operative medical management. Other spondylosis with radiculopathy, lumbar region POD#3 L1-L5 decompression and fusion by Dr. Nova Activity, pain control, bowel regimen, DVT prophylaxis per primary team Continue PT and OT Anticipate DC tomorrow Acute blood loss anemia Pre op hgb 12.1 -> 9.5 -> 8.9 -> 9.1 Patient tachycardic but otherwise asymptomatic Monitor CBC Tachycardia Likely due to anemia, patient asymptomatic HR 90-115s Preop EKG on 02/11/2025 with sinus tachycardia at rate of 105bpm EKG on 02/27 also shows sinus tachycardia at rate of 106bpm Leukocytosis WBC 19K -> 17K -> 18K Likely due to steroids Monitor CBC Hyponatremia, hyperkalemia Na 132 and K 5.2 Restart HCTZ today Holding potassium supplements Continue to hold spironolactone Monitor BMP Hypertension BP elevated this am Continue amlodipine Restart HCTZ today Continue to hold spironolactone due to hyperkalemia Hyperlipidemia Continue statin Rheumatoid arthritis Hold leflunomide Thank you for this consultation. We will continue to follow this patient with you. A member of the [facility] team is available 18/04 via the role in [employer] - please don't hesitate to reach out with questions. Patient seen in collaboration with Dr Montero. Please see addendum. I spent a total of 60 minutes coordinating, documenting and providing care for this patient excluding time spent in the performance of separately billed services or time spent by another provider/QHP. Admission and Anticipated Discharge Date Admission Date: February 25, 2025 Supervising Physician Co-Signing Physician Notes Patient seen and examined Agree with plans as detailed by Ashanti Dewey CUSTOMER SUPPORT TECHNICIAN Subjective Patient seen sitting up in the chair Reports 9/10 low back pain attributed to moving to the chair Reports reflux symptoms Denies headaches, dizziness, chest pain, palpitations, SOB, abdominal pain, N/V, weakness, radiculopathy Review of Systems Review of Systems: All systems reviewed & are unremarkable except as noted in Subjective Physical Exam Physical Exam: General/Psych: WD/WN, sitting up in chair, NAD, conversing easily Head: normocephalic, atraumatic Eyes: normal inspection, PERRL, conjunctivae pink ENT: external ear and nose normal, oropharynx normal Neck: normal visual inspection, trachea midline Respiratory: normal respiratory effort, lungs clear to auscultation, no wheeze/rales/rhonchi, no accessory muscle use Cardiovascular: regular rate and rhythm, no murmur/rub/gallop, no JVD Extremities: no cyanosis or clubbing, normal peripheral pulses, no BLE edema Abdomen/GI: normal bowel sounds, soft, nontender, no hepatosplenomegaly Neurologic/MSK: A+Ox3, motor strength 5/5, moves all extremities Skin: no rashes, normal color, warm and dry, island dressing c/d/i, EMILY drain in place Results & Data Results & Data Vital Signs (Past 12 Hours) Vital Signs Temp Pulse Resp BP Pulse Ox O2 Del Method 02/28/25 07:47 Room Air 02/28/25 07:12 36.6 C 119 H 18 157/82 H 91 Room Air Laboratory Results Short CBC 02/28/25 Range/Units 06:39 WBC 18.79 H (4.8-10.8) K/ul Hgb 9.1 L (12.0-16.0) g/dl Hct 27.5 L (37.0-47.0) % Plt Count 441 H (130-400) K/uL BMP 02/28/25 06:39 Sodium 132 L Potassium 5.2 H Chloride 97 L Carbon Dioxide 29 BUN 20 Creatinine 0.77 Glucose 123 H Calcium 9.0 I have independently reviewed and interpreted patient's labs including CBC and BMP Medications Administered Current Inpatient Medications Acetaminophen (Acetaminophen 500 Mg Tab) 1,000 mg PO Q8H PRN PRN Reason: MILD Pain Scale 1,2,3 & Pre PT Stop: 03/27/25 14:53 Last Admin: 02/28/25 08:38 Dose: 1,000 mg Al Hydrox/Mg Hydrox/Simethicone (Aluminum/Magnesium Susp 30 Ml Udc) 30 ml PO Q6H PRN PRN Reason: Dyspepsia Stop: 03/27/25 14:53 Amlodipine Besylate (Amlodipine Besylate 5 Mg Tab) 5 mg PO BID [facility] Stop: 03/27/25 20:59 Last Admin: 02/28/25 08:35 Dose: 5 mg Ascorbic Acid (Ascorbic Acid 500 Mg Tab) 500 mg PO DAILY [facility] Stop: 03/28/25 08:59 Last Admin: 02/28/25 08:34 Dose: 500 mg Bisacodyl (Bisacodyl 10 Mg Supp) 10 mg [place] DAILY PRN PRN Reason: Constipation Stop: 03/27/25 14:53 Diphenhydramine HCl (Diphenhydramine Capsule 25 Mg Cap) 25 mg PO Q6H PRN PRN Reason: Allergic Rhinitis/Insomnia Stop: 03/27/25 14:53 Last Admin: 02/27/25 20:24 Dose: 25 mg Famotidine (Famotidine 20 Mg Tab) 20 mg PO Q12H PRN PRN Reason: Dyspepsia Stop: 03/27/25 14:53 Last Admin: 02/26/25 18:26 Dose: 20 mg Hydrochlorothiazide (Hydrochlorothiazide 25 Mg Tab) 25 mg PO QAM [facility] Stop: 03/30/25 10:54 Hydromorphone HCl (Hydromorphone Inj 0.5 Mg/0.5 Ml Syr) 0.5 mg IV Q3H PRN PRN Reason: MODERATE Pain (Scale 4,5,6) & Pre PT Stop: 03/11/25 14:53 Hydromorphone HCl (Hydromorphone Inj 1 Mg/Ml Syringe) 1 mg IV Q3H PRN PRN Reason: SEVERE Pain (Scale 7,8,9,10) Stop: 03/11/25 14:53 Hydroxyzine HCl (Hydroxyzine Hcl 25 Mg Tab) 25 mg PO Q8H PRN PRN Reason: Anxiety Stop: 03/27/25 14:53 Last Admin: 02/27/25 04:30 Dose: 25 mg Promethazine HCl (Phenergan) 12.5 mg in 50.5 mls @ 202 mls/hr IV Q6H PRN PRN Reason: Nausea And Vomiting Stop: 03/27/25 14:53 Influenza Virus Vaccine Quadrival (Do Not Administer Flu Vaccine) 1 each N/A PRN PRN PRN Reason: Notification Stop: 03/27/25 14:53 Lorazepam (Lorazepam 0.5 Mg Tab) 0.5 mg PO Q8H PRN PRN Reason: Sedation/Anxiety Stop: 03/27/25 14:53 Lorazepam (Lorazepam 2 Mg/1 Ml Vial) 0.5 mg IV Q8H PRN PRN Reason: Sedation/Anxiety Stop: 03/27/25 14:53 Magnesium Hydroxide (Magnesium Hydroxide Susp 30 Ml Udc) 30 ml PO Q24H PRN PRN Reason: Constipation Stop: 03/27/25 14:53 Magnesium Oxide (Magnesium Oxide 400 Mg Tab) 400 mg PO DAILY [facility] Stop: 03/28/25 08:59 Last Admin: 02/28/25 08:35 Dose: 400 mg Metoclopramide HCl (Metoclopramide Hcl Inj 5 Mg/Ml 2 Ml Vial) 10 mg IV Q6H PRN PRN Reason: Nausea &/or Vomiting Stop: 03/27/25 14:53 Multivitamins (Multivitamin Tab) 1 tab PO DAILY [facility] Stop: 03/28/25 08:59 Last Admin: 02/28/25 08:34 Dose: 1 tab Naloxone HCl (Naloxone Hcl 0.4 Mg/1 Ml Vial/Carp) 0.1 mg IV Q5M PRN PRN Reason: Oversedation/Resp depression Stop: 03/27/25 14:53 Ondansetron HCl (Ondansetron Inj 2 Mg/Ml 2 Ml Vial) 4 mg IV Q6H PRN PRN Reason: Nausea &/or Vomiting Stop: 03/27/25 14:53 Ondansetron HCl (Ondansetron 4 Mg Od Tab) 4 mg PO Q6H PRN PRN Reason: Nausea Stop: 03/27/25 14:53 Last Admin: 02/26/25 18:26 Dose: 4 mg Oxycodone HCl (Oxycodone Hcl Ir 5 Mg Tab (Immediate Release)) 5 - 10 mg PO Q4H PRN PRN Reason: Pain & Pre PT Stop: 03/11/25 14:53 Last Admin: 02/26/25 15:18 Dose: 10 mg Pantoprazole Sodium (Pantoprazole 40 Mg Tab) 40 mg PO DAILYBL [facility] Stop: 03/30/25 10:29 Last Admin: 02/28/25 10:44 Dose: 40 mg Pneumococcal Polyvalent Vaccine (Do Not Administer Pneumococcal Vaccine) 1 each N/A PRN PRN PRN Reason: Notification Stop: 03/27/25 14:53 Senna/Docusate Sodium (Docusate Sodium/Senna 50/8.6mg Tab) 2 tab PO HS [facility] Stop: 03/27/25 20:59 Last Admin: 02/27/25 20:25 Dose: Not Given Sodium Biphosphate/Sodium Phosphate (Sod Phosphate/Sod Biphosphate Enema 132 Ml Btl) 132 ml MA ONE PRN PRN Reason: Constipation Stop: 03/27/25 14:53 Tramadol HCl (Tramadol Hcl 50 Mg Tablet) 50 - 100 mg PO Q4H PRN PRN Reason: Moderate-Severe pain & Pre PT Stop: 03/27/25 14:53 Last Admin: 02/28/25 07:10 Dose: 100 mg Vitamin D (Cholecalciferol 25 Mcg (1000 Units) Tab) 25 mcg PO DAILY [facility] Stop: 03/28/25 08:59 Last Admin: 02/28/25 08:34 Dose: 25 mcg Zolpidem Tartrate (Zolpidem Tartrate 5 Mg Tab) 10 mg PO HS PRN PRN Reason: Sleep Stop: 03/27/25 14:59
[2025-02-28] MEDS: hydroCHLOROthiazide 25 MG TAB PO SCH (12:23)
[2025-02-28] MEDS: ZOLPIDEM TARTRATE 5 MG TAB PO PRN (20:55)
[2025-02-28] MEDS ORDERED: ATORVASTATIN 20 MG TAB PO SCH (21:00)
[2025-03-01 07:35] LABS: Hematocrit (blood only) 27.3 % (37.0-47.0); Hemoglobin 8.8 g/dl (12.0-16.0); Mean Corpuscular Hemoglobin 27.0 pg (25.0-34.0); Mean Corpuscular Volume 83.7 fL (80.0-100.0); Platelet Count 436 K/uL (130-400); RDW Standard Deviation 42.7 fL (36.4-46.3); Red Blood Count 3.26 M/uL (4.20-5.40); White Blood Count 18.24 K/ul (4.8-10.8)
[2025-03-01 08:01] LABS: Anion Gap 11.0 (3-11); Blood Urea Nitrogen 22.0 mg/dl (6-23); Calcium 8.7 mg/dl (8.6-10.3); Carbon Dioxide 24.0 mmol/L (21-32); Chloride 97.0 mmol/L (98-107); Creatinine Clr Calc Pharmacy 68.2 ml/min; Glucose 117.0 mg/dl (70-99(Fasting)); Magnesium 2.1 mg/dl (1.7-2.4); Potassium 4.1 mmol/L (3.5-5.1); Sodium 132.0 mmol/L (136-145)
[2025-03-01] MEDS: SPIRONOLACTONE 25 MG TAB PO SCH (09:25)
--- NOTE | 2025-03-01 11:29 | Hospitalist Progress Note ---
Date of Service March 01, 2025 Assessment & Plan (1) Other spondylosis with radiculopathy, lumbar region: (2) Acute blood loss anemia: (3) Tachycardia: (4) Leukocytosis: (5) Hyponatremia: (6) Hyperkalemia: (7) Hypertension: (8) Hyperlipidemia: (9) Rheumatoid arthritis: Plan 69 year old female with PMH significant for hypertension, hyperlipidemia, rheumatoid arthritis, palpitations, history of bilateral pulmonary emboli, and lumbar spondylosis with radiculopathy who underwent L1-L5 decompression and fusion on 02/25/[address] Nova. We have been consulted for post operative medical management. Other spondylosis with radiculopathy, lumbar region POD#4 L1-L5 decompression and fusion by Dr. Nova Activity, pain control, bowel regimen, DVT prophylaxis per primary team Continue PT and OT Possible DC today with home health Acute blood loss anemia Pre op hgb 12.1 -> 9.5 -> 8.9 -> 9.1 -> 8.8 Patient tachycardic but otherwise asymptomatic Tachycardia Likely due to anemia, patient asymptomatic HR 90-115s Preop EKG on 02/11/2025 with sinus tachycardia at rate of 105bpm EKG on 02/27 also shows sinus tachycardia at rate of 106bpm Leukocytosis WBC 19K -> 17K -> 18K Likely due to steroids Hyponatremia, hyperkalemia Na 132 and K 4.1 Restart spironolactone today Discontinue potassium supplements at discharge Hypertension Continue home amlodipine, HCTZ, spironolactone Hyperlipidemia Patient notes she does not take atorvastatin anymore Rheumatoid arthritis Hold leflunomide Thank you for this consultation. We will continue to follow this patient with you. [facility] via the role in [employer] - please don't hesitate to reach out with questions. Patient seen in collaboration with Dr Montero. Please see addendum. I spent a total of 60 minutes coordinating, documenting and providing care for this patient excluding time spent in the performance of separately billed services or time spent by another provider/QHP. Admission and Anticipated Discharge Date Admission Date: February 25, 2025 Supervising Physician Co-Signing Physician Notes Patient evaluated Agree with plans as detailed by Ashanti METZGER Subjective Patient seen sitting up in the chair Reports 9/10 right hip pain and reflux Denies headaches, dizziness, chest pain, palpitations, SOB, abdominal pain, N/V, weakness, radiculopathy Review of Systems Review of Systems: All systems reviewed & are unremarkable except as noted in Subjective Physical Exam Physical Exam: Gen/Psych: WD/WN, sitting up in chair, appears uncomfortable, A&Ox3 HEENT: Normocephalic, atraumatic, conjunctivae pink, sclerae anicteric, mucous membranes moist Lung: Clear to auscultation bilaterally, no wheezes/rales/rhonchi Heart: Regular rate and rhythm, no murmurs/rubs/gallops Extremities: Normal peripheral pulses, no edema, 5/5 strength Abdomen: Soft, NT, ND, +BS x 4 Skin: Warm and dry, no rash, island dressing c/d/i Results & Data Results & Data Vital Signs (Past 12 Hours) Vital Signs Temp Pulse Resp BP Pulse Ox O2 Del Method 03/01/25 07:07 36.6 C 115 H 16 116/80 94 Room Air Laboratory Results Short CBC 03/01/25 Range/Units 07:16 WBC 18.24 H (4.8-10.8) K/ul Hgb 8.8 L (12.0-16.0) g/dl Hct 27.3 L (37.0-47.0) % Plt Count 436 H (130-400) K/uL BMP 03/01/25 07:16 Sodium 132 L Potassium 4.1 D Chloride 97 L Carbon Dioxide 24 BUN 22 Creatinine 0.89 Glucose 117 H Calcium 8.7 I have independently reviewed and interpreted patient's admitting labs including CBC, BMP, mag. Medications Administered Current Inpatient Medications Acetaminophen (Acetaminophen 500 Mg Tab) 1,000 mg PO Q8H PRN PRN Reason: MILD Pain Scale 1,2,3 & Pre PT Stop: 03/27/25 14:53 Last Admin: 03/01/25 09:09 Dose: 1,000 mg Al Hydrox/Mg Hydrox/Simethicone (Aluminum/Magnesium Susp 30 Ml Udc) 30 ml PO Q6H PRN PRN Reason: Dyspepsia Stop: 03/27/25 14:53 Amlodipine Besylate (Amlodipine Besylate 5 Mg Tab) 5 mg PO BID [facility] Stop: 03/27/25 20:59 Last Admin: 03/01/25 08:36 Dose: 5 mg Ascorbic Acid (Ascorbic Acid 500 Mg Tab) 500 mg PO DAILY [facility] Stop: 03/28/25 08:59 Last Admin: 03/01/25 08:37 Dose: 500 mg Bisacodyl (Bisacodyl 10 Mg Supp) 10 mg [place] DAILY PRN PRN Reason: Constipation Stop: 03/27/25 14:53 Diphenhydramine HCl (Diphenhydramine Capsule 25 Mg Cap) 25 mg PO Q6H PRN PRN Reason: Allergic Rhinitis/Insomnia Stop: 03/27/25 14:53 Last Admin: 02/27/25 20:24 Dose: 25 mg Famotidine (Famotidine 20 Mg Tab) 20 mg PO Q12H PRN PRN Reason: Dyspepsia Stop: 03/27/25 14:53 Last Admin: 03/01/25 09:25 Dose: 20 mg Hydrochlorothiazide (Hydrochlorothiazide 25 Mg Tab) 25 mg PO QAM [facility] Stop: 03/30/25 10:54 Last Admin: 03/01/25 08:36 Dose: 25 mg Hydromorphone HCl (Hydromorphone Inj 0.5 Mg/0.5 Ml Syr) 0.5 mg IV Q3H PRN PRN Reason: MODERATE Pain (Scale 4,5,6) & Pre PT Stop: 03/11/25 14:53 Hydromorphone HCl (Hydromorphone Inj 1 Mg/Ml Syringe) 1 mg IV Q3H PRN PRN Reason: SEVERE Pain (Scale 7,8,9,10) Stop: 03/11/25 14:53 Hydroxyzine HCl (Hydroxyzine Hcl 25 Mg Tab) 25 mg PO Q8H PRN PRN Reason: Anxiety Stop: 03/27/25 14:53 Last Admin: 02/27/25 04:30 Dose: 25 mg Promethazine HCl (Phenergan) 12.5 mg in 50.5 mls @ 202 mls/hr IV Q6H PRN PRN Reason: Nausea And Vomiting Stop: 03/27/25 14:53 Influenza Virus Vaccine Quadrival (Do Not Administer Flu Vaccine) 1 each N/A PRN PRN PRN Reason: Notification Stop: 03/27/25 14:53 Lorazepam (Lorazepam 0.5 Mg Tab) 0.5 mg PO Q8H PRN PRN Reason: Sedation/Anxiety Stop: 03/27/25 14:53 Lorazepam (Lorazepam 2 Mg/1 Ml Vial) 0.5 mg IV Q8H PRN PRN Reason: Sedation/Anxiety Stop: 03/27/25 14:53 Magnesium Hydroxide (Magnesium Hydroxide Susp 30 Ml Udc) 30 ml PO Q24H PRN PRN Reason: Constipation Stop: 03/27/25 14:53 Magnesium Oxide (Magnesium Oxide 400 Mg Tab) 400 mg PO DAILY [facility] Stop: 03/28/25 08:59 Last Admin: 03/01/25 08:37 Dose: 400 mg Metoclopramide HCl (Metoclopramide Hcl Inj 5 Mg/Ml 2 Ml Vial) 10 mg IV Q6H PRN PRN Reason: Nausea &/or Vomiting Stop: 03/27/25 14:53 Multivitamins (Multivitamin Tab) 1 tab PO DAILY [facility] Stop: 03/28/25 08:59 Last Admin: 03/01/25 08:37 Dose: 1 tab Naloxone HCl (Naloxone Hcl 0.4 Mg/1 Ml Vial/Carp) 0.1 mg IV Q5M PRN PRN Reason: Oversedation/Resp depression Stop: 03/27/25 14:53 Ondansetron HCl (Ondansetron Inj 2 Mg/Ml 2 Ml Vial) 4 mg IV Q6H PRN PRN Reason: Nausea &/or Vomiting Stop: 03/27/25 14:53 Ondansetron HCl (Ondansetron 4 Mg Od Tab) 4 mg PO Q6H PRN PRN Reason: Nausea Stop: 03/27/25 14:53 Last Admin: 02/26/25 18:26 Dose: 4 mg Oxycodone HCl (Oxycodone Hcl Ir 5 Mg Tab (Immediate Release)) 5 - 10 mg PO Q4H PRN PRN Reason: Pain & Pre PT Stop: 03/11/25 14:53 Last Admin: 03/01/25 09:09 Dose: 5 mg Pantoprazole Sodium (Pantoprazole 40 Mg Tab) 40 mg PO DAILYBL [facility] Stop: 03/30/25 10:29 Last Admin: 03/01/25 08:36 Dose: 40 mg Pneumococcal Polyvalent Vaccine (Do Not Administer Pneumococcal Vaccine) 1 each N/A PRN PRN PRN Reason: Notification Stop: 03/27/25 14:53 Senna/Docusate Sodium (Docusate Sodium/Senna 50/8.6mg Tab) 2 tab PO HS [facility] Stop: 03/27/25 20:59 Last Admin: 02/28/25 20:56 Dose: Not Given Sodium Biphosphate/Sodium Phosphate (Sod Phosphate/Sod Biphosphate Enema 132 Ml Btl) 132 ml [place] ONE PRN PRN Reason: Constipation Stop: 03/27/25 14:53 Spironolactone (Spironolactone 25 Mg Tab) 25 mg PO QAM [facility] Stop: 03/31/25 08:59 Last Admin: 03/01/25 09:25 Dose: 25 mg Tramadol HCl (Tramadol Hcl 50 Mg Tablet) 50 - 100 mg PO Q4H PRN PRN Reason: Moderate-Severe pain & Pre PT Stop: 03/27/25 14:53 Last Admin: 03/01/25 06:39 Dose: 100 mg Vitamin D (Cholecalciferol 25 Mcg (1000 Units) Tab) 25 mcg PO DAILY [facility] Stop: 03/28/25 08:59 Last Admin: 03/01/25 08:36 Dose: 25 mcg Zolpidem Tartrate (Zolpidem Tartrate 5 Mg Tab) 10 mg PO HS PRN PRN Reason: Sleep Stop: 03/27/25 14:59 Last Admin: 02/28/25 20:55 Dose: 10 mg
--- NOTE | 2025-03-01 11:44 | Orthopedic Progress Note ---
Date of Service March 01, 2025 Assessment & Plan (1) Other spondylosis with radiculopathy, lumbar region: Plan: I discussed with the patient her progress with therapy. I am concerned that she would be going home too early if she would leave today. I have expressed the goal of her being able to ambulate up and down the halls prior to discharge. We will also check her urine to ensure there is not an underlying UTI. Lastly she may begin to use ice on her back and right hip for pain control. Admission and Anticipated Discharge Date Admission Date: February 25, 2025 Subjective Patient struggling with back pain and some right trochanteric bursitis. She is ambulating but very short distances. Physical Exam Physical Exam: On exam she is currently in bed. She is neurologically intact. There is tenderness palpation of the right greater trochanter and IT band. Results & Data Vital Signs (Past 12 Hours) Vital Signs Temp Pulse Resp BP Pulse Ox O2 Del Method 03/01/25 07:07 36.6 C 115 H 16 116/80 94 Room Air [facility] Orthopedic Spine Acute Posthemorrhagic Anemia: Yes Obesity: Yes
[2025-03-01 14:25] LABS: Appearance Urine Clear (Clear); Bacteria Urine Automated 1+ (None Seen); Glucose Urine UA Negative (Negative); RBC Urine Automated 0-2 /hpf (0-2); WBC Urine Automated 0-5 /hpf (0-5)
--- NOTE | 2025-03-01 23:09 | Electrocardiogram Report ---
Test Reason : Blood Pressure : */* mmHG Vent. Rate : 106 BPM Atrial Rate : 106 BPM P-R Int : 146 ms QRS Dur : 84 ms QT Int : 328 ms P-R-T Axes : 59 -19 17 degrees QTcB Int : 435 ms Sinus tachycardia with occasional Premature ventricular complexes Cannot rule out Anterior infarct , age undetermined Abnormal ECG When compared with ECG of 11-Feb-2025 11:55, Minimal criteria for Anterior infarct are now Present Confirmed by Daniel Quintanilla ([id number]) on 03/01/2025 11:08:33 PM Referred By: Adriel Nova Confirmed By: Daniel Quintanilla
--- NOTE | 2025-03-02 07:57 | Hospitalist Progress Note ---
Date of Service March 02, 2025 Assessment & Plan (1) Other spondylosis with radiculopathy, lumbar region: (2) Acute blood loss anemia: (3) Tachycardia: (4) Leukocytosis: (5) Hyponatremia: (6) Hyperkalemia: (7) Hypertension: (8) Hyperlipidemia: (9) Rheumatoid arthritis: Plan 69 year old female with PMH significant for hypertension, hyperlipidemia, rheumatoid arthritis, palpitations, history of bilateral pulmonary emboli, and lumbar spondylosis with radiculopathy who underwent L1-L5 decompression and fusion on 02/25/[address] Nova. We have been consulted for post operative medical management. Other spondylosis with radiculopathy, lumbar region POD#5 L1-L5 decompression and fusion by Dr. Nova Activity, pain control, bowel regimen, DVT prophylaxis per primary team Continue PT and OT - recommending rehab, CM following Cleared for discharge once accepted/bed available Acute blood loss anemia Pre op hgb 12.1 -> 9.5 -> 8.9 -> 9.1 -> 8.8 Patient tachycardic but otherwise asymptomatic Tachycardia Likely due to anemia, patient asymptomatic HR 90-115s Preop EKG on 02/11/2025 with sinus tachycardia at rate of 105bpm EKG on 02/27 also shows sinus tachycardia at rate of 106bpm Leukocytosis WBC 19K -> 17K -> 18K -> 17K Likely due to steroids Hyponatremia, hyperkalemia Na 131 and K 4.4 Continue home diuretics Discontinue potassium supplements at discharge Hypertension Continue home amlodipine, HCTZ, spironolactone Rheumatoid arthritis Hold leflunomide Thank you for this consultation. We will continue to follow this patient with you. [facility] via the role in [employer] - please don't hesitate to reach out with questions. Patient seen in collaboration with Dr Montero. Please see addendum. I spent a total of 60 minutes coordinating, documenting and providing care for this patient excluding time spent in the performance of separately billed services or time spent by another provider/QHP. Admission and Anticipated Discharge Date Admission Date: February 25, 2025 Supervising Physician Co-Signing Physician Notes Patient seen and examined Agree with findings and plans as detailed by Ashanti METZGER Subjective Patient is still having right hip pain today and notes left hip pain also 10/10 Is upset with the lack of progress she is making Feels very tired and is not getting much rest Denies headaches, dizziness, chest pain, SOB, abdominal pain, N/V, dysuria Review of Systems Review of Systems: All systems reviewed & are unremarkable except as noted in Subjective Physical Exam Physical Exam: Gen/Psych: WD/WN, sitting up in bed, distressed, A&Ox3 HEENT: Normocephalic, atraumatic, conjunctivae pink, sclerae anicteric, mucous membranes moist Lung: Clear to auscultation bilaterally, no wheezes/rales/rhonchi Heart: Regular rate and rhythm, no murmurs/rubs/gallops Extremities: Normal peripheral pulses, no edema, 5/5 strength Abdomen: Soft, NT, ND, +BS x 4 Skin: Warm and dry, no rash, island dressing c/d/i Results & Data Results & Data Vital Signs (Past 12 Hours) Vital Signs Temp Pulse Resp BP Pulse Ox O2 Del Method 03/02/25 07:17 36.7 C 110 H 18 152/81 H 91 Room Air 03/01/25 20:41 36.8 C 117 H 18 155/79 H 92 Room Air Laboratory Results Short CBC 03/02/25 Range/Units 07:32 WBC 17.15 H (4.8-10.8) K/ul Hgb 8.8 L (12.0-16.0) g/dl Hct 27.1 L (37.0-47.0) % Plt Count 432 H (130-400) K/uL BMP 03/02/25 07:32 Sodium 131 L Potassium 4.4 Chloride 96 L Carbon Dioxide 26 BUN 22 Creatinine 0.78 Glucose 114 H Calcium 8.5 L Urine 03/01/25 Range/Units 13:50 Urine Color Yellow Urine Appearance Clear (Clear) Urine pH 5.5 (4.5-7.5) Ur Specific Sharon 1.023 (1.000-1.030) Urine Protein 1+ H (Negative) Urine Glucose (UA) Negative (Negative) I have independently reviewed and interpreted patient's admitting labs including CBC, BMP, UA. Medications Administered Current Inpatient Medications Acetaminophen (Acetaminophen 500 Mg Tab) 1,000 mg PO Q8H PRN PRN Reason: MILD Pain Scale 1,2,3 & Pre PT Stop: 03/27/25 14:53 Last Admin: 03/01/25 09:09 Dose: 1,000 mg Al Hydrox/Mg Hydrox/Simethicone (Aluminum/Magnesium Susp 30 Ml Udc) 30 ml PO Q6H PRN PRN Reason: Dyspepsia Stop: 03/27/25 14:53 Amlodipine Besylate (Amlodipine Besylate 5 Mg Tab) 5 mg PO BID PATRICK Stop: 03/27/25 20:59 Last Admin: 03/01/25 20:45 Dose: 5 mg Ascorbic Acid (Ascorbic Acid 500 Mg Tab) 500 mg PO DAILY PATRICK Stop: 03/28/25 08:59 Last Admin: 03/01/25 08:37 Dose: 500 mg Bisacodyl (Bisacodyl 10 Mg Supp) 10 mg OR DAILY PRN PRN Reason: Constipation Stop: 03/27/25 14:53 Diphenhydramine HCl (Diphenhydramine Capsule 25 Mg Cap) 25 mg PO Q6H PRN PRN Reason: Allergic Rhinitis/Insomnia Stop: 03/27/25 14:53 Last Admin: 02/27/25 20:24 Dose: 25 mg Famotidine (Famotidine 20 Mg Tab) 20 mg PO Q12H PRN PRN Reason: Dyspepsia Stop: 03/27/25 14:53 Last Admin: 03/01/25 09:25 Dose: 20 mg Hydrochlorothiazide (Hydrochlorothiazide 25 Mg Tab) 25 mg PO QAM [facility] Stop: 03/30/25 10:54 Last Admin: 03/01/25 08:36 Dose: 25 mg Hydromorphone HCl (Hydromorphone Inj 0.5 Mg/0.5 Ml Syr) 0.5 mg IV Q3H PRN PRN Reason: MODERATE Pain (Scale 4,5,6) & Pre PT Stop: 03/11/25 14:53 Hydromorphone HCl (Hydromorphone Inj 1 Mg/Ml Syringe) 1 mg IV Q3H PRN PRN Reason: SEVERE Pain (Scale 7,8,9,10) Stop: 03/11/25 14:53 Hydroxyzine HCl (Hydroxyzine Hcl 25 Mg Tab) 25 mg PO Q8H PRN PRN Reason: Anxiety Stop: 03/27/25 14:53 Last Admin: 02/27/25 04:30 Dose: 25 mg Promethazine HCl (Phenergan) 12.5 mg in 50.5 mls @ 202 mls/hr IV Q6H PRN PRN Reason: Nausea And Vomiting Stop: 03/27/25 14:53 Influenza Virus Vaccine Quadrival (Do Not Administer Flu Vaccine) 1 each N/A PRN PRN PRN Reason: Notification Stop: 03/27/25 14:53 Lorazepam (Lorazepam 0.5 Mg Tab) 0.5 mg PO Q8H PRN PRN Reason: Sedation/Anxiety Stop: 03/27/25 14:53 Lorazepam (Lorazepam 2 Mg/1 Ml Vial) 0.5 mg IV Q8H PRN PRN Reason: Sedation/Anxiety Stop: 03/27/25 14:53 Magnesium Hydroxide (Magnesium Hydroxide Susp 30 Ml Udc) 30 ml PO Q24H PRN PRN Reason: Constipation Stop: 03/27/25 14:53 Magnesium Oxide (Magnesium Oxide 400 Mg Tab) 400 mg PO DAILY PATRICK Stop: 03/28/25 08:59 Last Admin: 03/01/25 08:37 Dose: 400 mg Metoclopramide HCl (Metoclopramide Hcl Inj 5 Mg/Ml 2 Ml Vial) 10 mg IV Q6H PRN PRN Reason: Nausea &/or Vomiting Stop: 03/27/25 14:53 Multivitamins (Multivitamin Tab) 1 tab PO DAILY PATRICK Stop: 03/28/25 08:59 Last Admin: 03/01/25 08:37 Dose: 1 tab Naloxone HCl (Naloxone Hcl 0.4 Mg/1 Ml Vial/Carp) 0.1 mg IV Q5M PRN PRN Reason: Oversedation/Resp depression Stop: 03/27/25 14:53 Ondansetron HCl (Ondansetron Inj 2 Mg/Ml 2 Ml Vial) 4 mg IV Q6H PRN PRN Reason: Nausea &/or Vomiting Stop: 03/27/25 14:53 Ondansetron HCl (Ondansetron 4 Mg Od Tab) 4 mg PO Q6H PRN PRN Reason: Nausea Stop: 03/27/25 14:53 Last Admin: 02/26/25 18:26 Dose: 4 mg Oxycodone HCl (Oxycodone Hcl Ir 5 Mg Tab (Immediate Release)) 5 - 10 mg PO Q4H PRN PRN Reason: Pain & Pre PT Stop: 03/11/25 14:53 Last Admin: 03/01/25 13:35 Dose: 10 mg Pantoprazole Sodium (Pantoprazole 40 Mg Tab) 40 mg PO DAILYBL PATRICK Stop: 03/30/25 10:29 Last Admin: 03/01/25 08:36 Dose: 40 mg Pneumococcal Polyvalent Vaccine (Do Not Administer Pneumococcal Vaccine) 1 each N/A PRN PRN PRN Reason: Notification Stop: 03/27/25 14:53 Senna/Docusate Sodium (Docusate Sodium/Senna 50/8.6mg Tab) 2 tab PO HS PATRICK Stop: 03/27/25 20:59 Last Admin: 03/01/25 20:46 Dose: 2 tab Sodium Biphosphate/Sodium Phosphate (Sod Phosphate/Sod Biphosphate Enema 132 Ml Btl) 132 ml OR ONE PRN PRN Reason: Constipation Stop: 03/27/25 14:53 Spironolactone (Spironolactone 25 Mg Tab) 25 mg PO QAM PATRICK Stop: 03/31/25 08:59 Last Admin: 03/01/25 09:25 Dose: 25 mg Tramadol HCl (Tramadol Hcl 50 Mg Tablet) 50 - 100 mg PO Q4H PRN PRN Reason: Moderate-Severe pain & Pre PT Stop: 03/27/25 14:53 Last Admin: 03/02/25 05:40 Dose: 100 mg Vitamin D (Cholecalciferol 25 Mcg (1000 Units) Tab) 25 mcg PO DAILY PATRICK Stop: 03/28/25 08:59 Last Admin: 03/01/25 08:36 Dose: 25 mcg Zolpidem Tartrate (Zolpidem Tartrate 5 Mg Tab) 10 mg PO HS PRN PRN Reason: Sleep Stop: 03/27/25 14:59 Last Admin: 02/28/25 20:55 Dose: 10 mg
[2025-03-02 08:03] LABS: Hematocrit (blood only) 27.1 % (37.0-47.0); Hemoglobin 8.8 g/dl (12.0-16.0); Mean Corpuscular Hemoglobin 27.0 pg (25.0-34.0); Mean Corpuscular Volume 83.1 fL (80.0-100.0); Platelet Count 432 K/uL (130-400); RDW Standard Deviation 42.8 fL (36.4-46.3); Red Blood Count 3.26 M/uL (4.20-5.40); White Blood Count 17.15 K/ul (4.8-10.8)
[2025-03-02 08:18] LABS: Anion Gap 9.0 (3-11); Blood Urea Nitrogen 22.0 mg/dl (6-23); Calcium 8.5 mg/dl (8.6-10.3); Carbon Dioxide 26.0 mmol/L (21-32); Chloride 96.0 mmol/L (98-107); Creatinine Clr Calc Pharmacy 77.8 ml/min; Glucose 114.0 mg/dl (70-99(Fasting)); Potassium 4.4 mmol/L (3.5-5.1); Sodium 131.0 mmol/L (136-145)
--- NOTE | 2025-03-02 10:49 | Discharge Summary ---
Date of Service March 02, 2025 Admission HPI Per Admitting Provider This is a 61-year-old female who presents with chronic persistent back and bilateral knee pain after failing course of nonoperative care is here for surgical invention. Principal Diagnosis Lumbar spondylosis with radiculopathy Discharge Data Allergies Allergy/AdvReac Type Severity Reaction Status Date / Time ampicillin Allergy Severe Rash Verified 02/25/25 06:53 terbinafine Allergy Severe Diarrhea Verified 02/25/25 06:53 Consultations 02/25/25 14:54 Consult Hospitalist Routine Procedures Performed Operation Date: 02/25/25 10:05 Actual Procedures p L2-L5 Decompression and Fusion, with Placement of Interbody Cages (Not Applicable) - Adriel Nova DO Ordered Studies 02/25/25 06:00 FL lumbar spine 2-3V Routine Hospital Course (1) Other spondylosis with radiculopathy, lumbar region: Patient underwent lumbar decompression fusion trial as well as taken orthopedic for postoperative. Postop patient progressed steadily but slowly. She does have a history of rheumatoid arthritis and is struggling with significant inflammation. This is inhibiting some of her progress. In light of her requirements getting out of bed with her medical issues recommending SNF placement. Discharge orders instructions found in chart for further view. Total Time Total Time Spent Total Time Spent (In Minutes): 20 minutes Discharge Plan Discharge Items Patient Disposition: Transfer Longterm Fac Reason For Visit: Degenerative Lumbar Spinal Stenosis, Lumbar Disc Discharge Diagnosis: Lumbar spondylosis with radiculopathy Activity: As commented below Non-emergency contact: Primary Care Provider Call non-emergency contact if: you have any medication questions Follow-up/Referrals: Michaela Donnelly [employer] [Primary Care Provider] - (Please call your PCP and schedule a follow up appointment for 1 week after discharge. ) Diet: Regular Addtl Attending Provider Instructions: ACTIVITY RECOMMENDATIONS: SELF CARE INSTRUCTIONS AFTER THORACIC/LUMBAR FUSIONS 1. You may walk to your tolerance. It is good exercise for your legs and back. Expect some back and intermittent leg aches and pains. 2. You may perform "counter-top" level activities (make a sandwich, kylee with a project, etc.). 3. No bending or lifting of more than 10 pounds or back twisting of any nature (roll like a log when turning in bed). 4. You may ride in a car for 20-30 minutes at a time. No driving until after your first visit with your doctor. 5. Frequent changes of position and restricting sitting to 30 minutes at a time will help limit the amount of back spasms and stiffness you may experience. 6. You may discontinue the use of ambulatory aids (cane, crutches, etc.) once your strength and confidence allow. 7. You may round up ring hand the shower and let water strike your incision when you arrive home at least once daily. Do not take a tub bath, sit in a hot tub or go into a swimming pool until after your first recheck in the office. 8. You may resume previous diet. SPECIAL CARE INSTRUCTIONS: VERY IMPORTANT TO READ AND REVIEW A. Your surgical incision has been closed with a cosmetic suture under the skin that will dissolve in about 6 weeks. In 14 days, you can use a pair of clean scissors and cut the suture that is left outside of the skin at the ends of your incision. 1. The small skin tapes can be removed 7 days after surgery if they have not fallen off by that point. 2. You may keep the wound open to air as much as possible to promote healing after post-op day number 5 unless told otherwise by your doctor. 3. If you think the wound looks like it is becoming infected (redness or worsening drainage) and/or you are experiencing fever, chill or worsening back pain and muscle spasms, contact the office so that we may evaluate you as soon as possible. B. Complications are uncommon, but please contact us if you have any signs or symptoms of: 1. wound infection (fever higher than 102.5 degrees F, redness, separation of wound, drainage, or increasing pain from the incision) 2. blood clots in legs (pain, swelling, redness and warmth in legs) 3. urinary tract infection (fever higher than 102.5 degrees F, burning upon urination or increased frequency of urination) 4. nerve problems (inability to walk on your toes or heels, numbness, loss of bowel or bladder control) 5. any other symptoms that concern you C. Please call the office at if you have any concerns or questions about your operation or recovery. D. No smoking! Smoking drastically decreases the chance of a solid fusion. E. Do not take any anti-inflammatory medications (Indocin, Advil, Motrin, Aspirin, Naprosyn, etc.) as these may inhibit the chance of a solid fusion. Tylenol is okay to take for pain. MANAGING PAIN AFTER SPINAL SURGERY 1. Narcotic medication is intended for short-term use and will be provided for surgical pain. Surgical pain usually lasts for a period of 4-6 weeks. Narcotic medication includes Percocet, Vicodin, Darvocet, Tylenol #3 or Lortab. 2. Longer-term pain is more appropriately treated with non-narcotic medication such as Tylenol ES. 3. Muscle spasm is not appropriately treated with narcotics. Muscle relaxers such as Soma, Flexeril or Skelaxin can be used along with Tylenol ES. 4. Remember that we all live with some "aches and pains". This is not unusual or uncommon after an injury or as we get older. a. Back pain is expected and may include muscle spasms for 4 to 6 weeks after surgery. The pain should gradually improve. If the pain worsens for no apparent reason, please contact the office. b. Intermittent leg pain may also be experienced and should not be concerned about unless it worsens for no apparent reason. If so, please contact the office. 5. We will provide appropriate medication within the normal guidelines of their prescribed use. We will also be very cautious and aware of potential abuse and extended duration of patients' medication needs. a. Pain medications are for your comfort and to assist with sleep and rest so that the tissue can heal. They are not provided in order to return to normal activity and should not be used through the day. To do so or worsening pain at night can result from ongoing tissue damage and development of tolerance to the prescribed medicine. 6. Please allow 2-3 days to process refills. Prescriptions will not be mailed but must be picked up at the office. FOLLOW UP VISIT: Keep your scheduled follow-up appointment. Any questions, please call the office at . Addtl Insurance Counsel Provider Instructions: Please call [facility] [phone] to schedule follow up regarding shoulder pain and ask for [place]ella location Pending Studies at Discharge: No Stand-Alone Forms: My [employer], Smoking Cessation Skilled Items Patient informed of condition?: Yes DNR: No Discharge Level of Care: Skilled Communicable Disease: No Discharge Prognosis: Improving Lines: None Urinary Catheter: No Medications and DC Order Prescriptions: New tramadol 50 mg tablet 50 mg PO Q6H PRN (Reason: pain, moderate) Qty: 30 0RF oxycodone 5 mg tablet 5 mg PO Q6H PRN (Reason: pain) Qty: 30 0RF Continued multivitamin Tablet 1 tab PO DAILY leflunomide 10 mg Tablet 10 mg PO QAM amlodipine 5 mg Tablet 5 mg PO BID spironolactone 25 mg Tablet 25 mg PO QAM ascorbic acid (vitamin C) [Vitamin C] 500 mg Tablet 500 mg PO DAILY hydrochlorothiazide 25 mg Tablet 25 mg PO QAM zolpidem 10 mg Tablet 10 mg PO HS PRN (Reason: prn) cholecalciferol (vitamin D3) [Vitamin D3] 25 mcg (1,000 unit) Capsule 25 mcg PO DAILY magnesium 200 mg Tablet 200 mg PO DAILY [place] 3 Capsule 1,000 mg PO DAILY aspirin 81 mg Tablet 81 mg PO DAILY Discontinued potassium chloride [Klor-Con 10] 10 mEq Tablet Extended Release 20 meq PO QAM Enbrel Mini 50 mg/mL (1 mL) Cartridge 50 mg SUBCUT WK Patient Comments: Mondays Discharge Orders: Discharge Order (Routine); Ordered 03/02/25 Ordered By: Adriel Nova Admission Data Admit Date/Time: 02/25/25 14:51 Attending Provider: Adriel Nova Admit Provider: Adriel Nova Primary Care Provider: Michaela Donnelly Other Providers: Mariza Avina; Dena Montero I.; Danyel Panda [facility]
[2025-03-02] MEDS: KETOROLAC TROMETHAMINE 15 MG/ML VIAL IV ONE (11:09)
[2025-03-02] MEDS: KETOROLAC TROMETHAMINE 15 MG/ML VIAL IV PRN (19:45)
[2025-03-02] MEDS: HYDROmorphone INJ 1 MG/ML SYRINGE IV PRN (23:28)
[2025-03-03 06:30] LABS: Hematocrit (blood only) 26.3 % (37.0-47.0); Hemoglobin 8.7 g/dl (12.0-16.0); Mean Corpuscular Hemoglobin 27.4 pg (25.0-34.0); Mean Corpuscular Volume 83.0 fL (80.0-100.0); Platelet Count 439 K/uL (130-400); RDW Standard Deviation 42.1 fL (36.4-46.3); Red Blood Count 3.17 M/uL (4.20-5.40); White Blood Count 14.12 K/ul (4.8-10.8)
[2025-03-03 06:58] LABS: Anion Gap 9.0 (3-11); Blood Urea Nitrogen 23.0 mg/dl (6-23); Calcium 8.5 mg/dl (8.6-10.3); Carbon Dioxide 27.0 mmol/L (21-32); Chloride 94.0 mmol/L (98-107); Creatinine Clr Calc Pharmacy 65.2 ml/min; Glucose 87.0 mg/dl (70-99(Fasting)); Potassium 4.4 mmol/L (3.5-5.1); Sodium 130.0 mmol/L (136-145)
--- NOTE | 2025-03-03 08:10 | Hospitalist Progress Note ---
Date of Service March 03, 2025 Assessment & Plan (1) Other spondylosis with radiculopathy, lumbar region: (2) Acute blood loss anemia: (3) Tachycardia: (4) Leukocytosis: (5) Hyponatremia: (6) Hyperkalemia: (7) Hypertension: (8) Hyperlipidemia: (9) Rheumatoid arthritis: Plan 69 year old female with PMH significant for hypertension, hyperlipidemia, rheumatoid arthritis, palpitations, history of bilateral pulmonary emboli, and lumbar spondylosis with radiculopathy who underwent L1-L5 decompression and fusion on 02/25/[address] Nova. We have been consulted for post operative medical management. Other spondylosis with radiculopathy, lumbar region POD#6 L1-L5 decompression and fusion by Dr. Nova Patient still having significant pain and regression in mobility Ordered cyclobenzaprine for spasms, scheduled tylenol, daily lidocaine patch, e ncouraged PRN toradol and oxycodone Continue IV steroid course per Dr Nova Continue PT as tolerated - rehab at discharge, CM following Acute blood loss anemia Pre op hgb 12.1 -> 9.5 -> 8.9 -> 9.1 -> 8.8 -> 8.7 Patient tachycardic but otherwise asymptomatic Tachycardia Likely due to pain/anemia, patient asymptomatic HR 90-115s Preop EKG on 02/11/2025 with sinus tachycardia at rate of 105bpm EKG on 02/27 also shows sinus tachycardia at rate of 106bpm Leukocytosis WBC 19K -> 17K -> 18K -> 17K -> 14K Likely due to steroids Hyponatremia Na 130-132 Patient notes poor PO intake Continue home diuretics Discontinue potassium supplements at discharge due to hyperkalemia while on them Hypertension Continue home amlodipine, HCTZ, spironolactone Rheumatoid arthritis Hold leflunomide Patient seen in collaboration with Dr Montero. Please see addendum. Thank you for this consultation. We will continue to follow this patient with you. [facility] via the role in [employer] - please don't hesitate to reach out with questions. I spent a total of 50 minutes coordinating, documenting and providing care for this patient excluding time spent in the performance of separately billed services or time spent by another provider/QHP. Admission and Anticipated Discharge Date Admission Date: February 25, 2025 Supervising Physician Co-Signing Physician Notes Patient seen and examined Agree with findings and plans as detailed by Ashanti METZGER Subjective Patient seen laying in bed Reports 10/10 pain in bilateral hips and buttocks with radiation down bilateral legs to her knees Having spasms States she cannot get comfortable in any position Denies headaches, chest pain, SOB, abdominal pain, N/V/D Review of Systems Review of Systems: All systems reviewed & are unremarkable except as noted in Subjective Physical Exam Physical Exam: Gen/Psych: WD/WN, laying in bed, uncomfortable and distressed, A&Ox3 HEENT: Normocephalic, atraumatic, conjunctivae pink, sclerae anicteric, mucous membranes moist Lung: Clear to auscultation bilaterally, no wheezes/rales/rhonchi Heart: Regular rate and rhythm, no murmurs/rubs/gallops Extremities: Normal peripheral pulses, no edema, 5/5 strength Abdomen: Soft, NT, ND, +BS x 4 Skin: Warm and dry, no rash, island dressing c/d/i Results & Data Results & Data Vital Signs (Past 12 Hours) Vital Signs Temp Pulse Resp BP Pulse Ox O2 Del Method O2 Flow Rate 03/03/25 07:22 36.8 C 107 H 20 146/91 H 95 Room Air 03/02/25 21:42 18 97 Nasal Cannula 2 Laboratory Results Short CBC 03/03/25 Range/Units 05:39 WBC 14.12 H (4.8-10.8) K/ul Hgb 8.7 L (12.0-16.0) g/dl Hct 26.3 L (37.0-47.0) % Plt Count 439 H (130-400) K/uL BMP 03/02/25 03/03/25 07:32 05:39 Sodium 131 L 130 L Potassium 4.4 4.4 Chloride 96 L 94 L Carbon Dioxide 26 27 BUN 22 23 Creatinine 0.78 0.93 Glucose 114 H 87 Calcium 8.5 L 8.5 L I have independently reviewed and interpreted patient's admitting labs including CBC and BMP. Medications Administered Current Inpatient Medications Acetaminophen (Acetaminophen 500 Mg Tab) 1,000 mg PO Q8H PRN PRN Reason: MILD Pain Scale 1,2,3 & Pre PT Stop: 03/27/25 14:53 Last Admin: 03/01/25 09:09 Dose: 1,000 mg Al Hydrox/Mg Hydrox/Simethicone (Aluminum/Magnesium Susp 30 Ml Udc) 30 ml PO Q6H PRN PRN Reason: Dyspepsia Stop: 03/27/25 14:53 Amlodipine Besylate (Amlodipine Besylate 5 Mg Tab) 5 mg PO BID [facility] Stop: 03/27/25 20:59 Last Admin: 03/03/25 08:03 Dose: 5 mg Ascorbic Acid (Ascorbic Acid 500 Mg Tab) 500 mg PO DAILY [facility] Stop: 03/28/25 08:59 Last Admin: 03/03/25 08:03 Dose: 500 mg Bisacodyl (Bisacodyl 10 Mg Supp) 10 mg SD DAILY PRN PRN Reason: Constipation Stop: 03/27/25 14:53 Diphenhydramine HCl (Diphenhydramine Capsule 25 Mg Cap) 25 mg PO Q6H PRN PRN Reason: Allergic Rhinitis/Insomnia Stop: 03/27/25 14:53 Last Admin: 02/27/25 20:24 Dose: 25 mg Famotidine (Famotidine 20 Mg Tab) 20 mg PO Q12H PRN PRN Reason: Dyspepsia Stop: 03/27/25 14:53 Last Admin: 03/01/25 09:25 Dose: 20 mg Hydrochlorothiazide (Hydrochlorothiazide 25 Mg Tab) 25 mg PO QAM [facility] Stop: 03/30/25 10:54 Last Admin: 03/03/25 08:03 Dose: 25 mg Hydromorphone HCl (Hydromorphone Inj 0.5 Mg/0.5 Ml Syr) 0.5 mg IV Q3H PRN PRN Reason: MODERATE Pain (Scale 4,5,6) & Pre PT Stop: 03/11/25 14:53 Hydromorphone HCl (Hydromorphone Inj 1 Mg/Ml Syringe) 1 mg IV Q3H PRN PRN Reason: SEVERE Pain (Scale 7,8,9,10) Stop: 03/11/25 14:53 Last Admin: 03/02/25 23:28 Dose: 1 mg Hydroxyzine HCl (Hydroxyzine Hcl 25 Mg Tab) 25 mg PO Q8H PRN PRN Reason: Anxiety Stop: 03/27/25 14:53 Last Admin: 02/27/25 04:30 Dose: 25 mg Promethazine HCl (Phenergan) 12.5 mg in 50.5 mls @ 202 mls/hr IV Q6H PRN PRN Reason: Nausea And Vomiting Stop: 03/27/25 14:53 Influenza Virus Vaccine Quadrival (Do Not Administer Flu Vaccine) 1 each N/A PRN PRN PRN Reason: Notification Stop: 03/27/25 14:53 Ketorolac Tromethamine (Ketorolac Tromethamine 15 Mg/Ml Vial) 15 mg IV Q6H PRN PRN Reason: Pain Stop: 03/07/25 15:59 Last Admin: 03/02/25 19:45 Dose: 15 mg Lorazepam (Lorazepam 0.5 Mg Tab) 0.5 mg PO Q8H PRN PRN Reason: Sedation/Anxiety Stop: 03/27/25 14:53 Lorazepam (Lorazepam 2 Mg/1 Ml Vial) 0.5 mg IV Q8H PRN PRN Reason: Sedation/Anxiety Stop: 03/27/25 14:53 Magnesium Hydroxide (Magnesium Hydroxide Susp 30 Ml Udc) 30 ml PO Q24H PRN PRN Reason: Constipation Stop: 03/27/25 14:53 Magnesium Oxide (Magnesium Oxide 400 Mg Tab) 400 mg PO DAILY [facility] Stop: 03/28/25 08:59 Last Admin: 03/03/25 08:03 Dose: 400 mg Metoclopramide HCl (Metoclopramide Hcl Inj 5 Mg/Ml 2 Ml Vial) 10 mg IV Q6H PRN PRN Reason: Nausea &/or Vomiting Stop: 03/27/25 14:53 Multivitamins (Multivitamin Tab) 1 tab PO DAILY PATRICK Stop: 03/28/25 08:59 Last Admin: 03/03/25 08:03 Dose: 1 tab Naloxone HCl (Naloxone Hcl 0.4 Mg/1 Ml Vial/Carp) 0.1 mg IV Q5M PRN PRN Reason: Oversedation/Resp depression Stop: 03/27/25 14:53 Ondansetron HCl (Ondansetron Inj 2 Mg/Ml 2 Ml Vial) 4 mg IV Q6H PRN PRN Reason: Nausea &/or Vomiting Stop: 03/27/25 14:53 Ondansetron HCl (Ondansetron 4 Mg Od Tab) 4 mg PO Q6H PRN PRN Reason: Nausea Stop: 03/27/25 14:53 Last Admin: 02/26/25 18:26 Dose: 4 mg Oxycodone HCl (Oxycodone Hcl Ir 5 Mg Tab (Immediate Release)) 5 - 10 mg PO Q4H PRN PRN Reason: Pain & Pre PT Stop: 03/11/25 14:53 Last Admin: 03/03/25 08:01 Dose: 10 mg Pantoprazole Sodium (Pantoprazole 40 Mg Tab) 40 mg PO DAILYBL PATRICK Stop: 03/30/25 10:29 Last Admin: 03/02/25 10:00 Dose: 40 mg Pneumococcal Polyvalent Vaccine (Do Not Administer Pneumococcal Vaccine) 1 each N/A PRN PRN PRN Reason: Notification Stop: 03/27/25 14:53 Senna/Docusate Sodium (Docusate Sodium/Senna 50/8.6mg Tab) 2 tab PO HS PATRICK Stop: 03/27/25 20:59 Last Admin: 03/02/25 19:53 Dose: 2 tab Sodium Biphosphate/Sodium Phosphate (Sod Phosphate/Sod Biphosphate Enema 132 Ml Btl) 132 ml SD ONE PRN PRN Reason: Constipation Stop: 03/27/25 14:53 Spironolactone (Spironolactone 25 Mg Tab) 25 mg PO QAM [facility] Stop: 03/31/25 08:59 Last Admin: 03/03/25 08:03 Dose: 25 mg Tramadol HCl (Tramadol Hcl 50 Mg Tablet) 50 - 100 mg PO Q4H PRN PRN Reason: Moderate-Severe pain & Pre PT Stop: 03/27/25 14:53 Last Admin: 03/02/25 18:08 Dose: 100 mg Vitamin D (Cholecalciferol 25 Mcg (1000 Units) Tab) 25 mcg PO DAILY PATR[facility] Stop: 03/28/25 08:59 Last Admin: 03/03/25 08:03 Dose: 25 mcg Zolpidem Tartrate (Zolpidem Tartrate 5 Mg Tab) 10 mg PO HS PRN PRN Reason: Sleep Stop: 03/27/25 14:59 Last Admin: 03/02/25 23:27 Dose: 10 mg
[2025-03-03] MEDS: ACETAMINOPHEN 500 MG TAB PO SCH (09:54)
[2025-03-03] MEDS: CYCLOBENZAPRINE HCL 10 MG TAB PO PRN (09:54)
--- NOTE | 2025-03-03 10:57 | Orthopedic Progress Note ---
Date of Service March 03, 2025 Assessment & Plan (1) Other spondylosis with radiculopathy, lumbar region: Plan: At this point I believe she is struggling with significant inflammation. Will have her undergo a course of IV Decadron over the next 24 hours. Will initiate physical therapy as tolerated. Ultimately she would be a candidate for rehab hopefully early this week. Admission and Anticipated Discharge Date Admission Date: February 25, 2025 Subjective Patient complaining of generalized global pain shoulders back and buttocks. She is having marked difficulty with transitions out of bed secondary to her discomfort. She denies any radicular complaints. Physical Exam Physical Exam: On exam patient has exquisite tenderness palpation of the bilateral IT bands and lumbar musculature. She is neurologically intact. Sensory is intact. Results & Data Vital Signs (Past 12 Hours) Vital Signs Temp Pulse Resp BP Pulse Ox O2 Del Method 03/03/25 07:22 36.8 C 107 H 20 146/91 H 95 Room Air Queries Orthopedic Spine Acute Posthemorrhagic Anemia: Yes Obesity: Yes
[2025-03-03] MEDS: LIDOCAINE 5% 1 PATCH TD SCH (12:16)
[2025-03-03] MEDS: dexAMETHasone 8 MG in SYRINGE 0 ML IV SCH (13:38)
[2025-03-03] MEDS: REMOVE LIDODERM PATCH SCH (21:24)
[2025-03-04 07:50] LABS: Hematocrit (blood only) 27.6 % (37.0-47.0); Hemoglobin 9.5 g/dl (12.0-16.0); Mean Corpuscular Hemoglobin 27.9 pg (25.0-34.0); Mean Corpuscular Volume 80.9 fL (80.0-100.0); Platelet Count 480 K/uL (130-400); RDW Standard Deviation 41.1 fL (36.4-46.3); Red Blood Count 3.41 M/uL (4.20-5.40); White Blood Count 18.49 K/ul (4.8-10.8)
[2025-03-04 08:10] LABS: Anion Gap 10.0 (3-11); Blood Urea Nitrogen 16.0 mg/dl (6-23); Calcium 8.8 mg/dl (8.6-10.3); Carbon Dioxide 27.0 mmol/L (21-32); Chloride 94.0 mmol/L (98-107); Creatinine Clr Calc Pharmacy 80.9 ml/min; Glucose 151.0 mg/dl (70-99(Fasting)); Potassium 4.2 mmol/L (3.5-5.1); Sodium 131.0 mmol/L (136-145)
[2025-03-04] MEDS: CYCLOBENZAPRINE HCL 5 MG TAB PO PRN (10:48)
--- NOTE | 2025-03-04 11:10 | Orthopedic Progress Note ---
Date of Service March 04, 2025 Assessment & Plan (1) Other spondylosis with radiculopathy, lumbar region: Plan: This time they would like to obtain an MRI lumbar spine to rule out new onset neural compression from a seroma that could account for her weakness. She does have a history of significant rheumatological diseases could also contribute. Continue to encourage her to get out of bed and ambulate as tolerated. Admission and Anticipated Discharge Date Admission Date: February 25, 2025 Subjective Patient is a little bit improved from the course of the steroids. She does however note that she has marked deficits to dorsiflexion of bilateral feet. She states this began last evening. She denies any radicular complaints. Has full sensation to the lower extremities. Physical Exam Physical Exam: On exam she does have excellent plantarflexion at 5 or 5 bilaterally. There is deficits to dorsiflexion bilaterally. This is new. Sensory is intact. Results & Data Vital Signs (Past 12 Hours) Vital Signs Temp Pulse Resp BP Pulse Ox O2 Del Method 03/04/25 08:03 36.7 C 110 H 17 154/83 H 93 Room Air Queries Orthopedic Spine Acute Posthemorrhagic Anemia: Yes Obesity: Yes
--- NOTE | 2025-03-04 11:12 | Hospitalist Progress Note ---
Date of Service March 04, 2025 Assessment & Plan (1) Other spondylosis with radiculopathy, lumbar region: (2) Acute blood loss anemia: (3) Tachycardia: (4) Leukocytosis: (5) Hyponatremia: (6) Hyperkalemia: (7) Hypertension: (8) Hyperlipidemia: (9) Rheumatoid arthritis: Plan 69 year old female with PMH significant for hypertension, hyperlipidemia, rheumatoid arthritis, palpitations, history of bilateral pulmonary emboli, and lumbar spondylosis with radiculopathy who underwent L1-L5 decompression and fusion on 02/25/[address] Nova. We have been consulted for post operative medical management. Other spondylosis with radiculopathy, lumbar region POD#7 L1-L5 decompression and fusion by Dr. Nova Patient still having significant pain, but was able to get to chair and sit up this morning Ordered cyclobenzaprine for spasms, scheduled tylenol, daily lidocaine patch, encouraged PRN toradol and oxycodone Continue IV steroid course per Dr Nova Continue PT as tolerated - rehab at discharge, I feel pt is medically stable for discharge and will improve from more intensive therapy at rehab She is planning to go to [facility] where her son is OT Ok to discharge from medical standpoint when okay with primary Ortho spine ordering MRI lumbar spine to ensure no change post operatively Acute blood loss anemia 2/2 expected surgical blood loss Pre op hgb 12.1 , hgb stable at 9.5 Patient tachycardic but otherwise asymptomatic Tachycardia Likely due to pain/anemia, patient asymptomatic HR 90-115s Preop EKG on 02/11/2025 with sinus tachycardia at rate of 105bpm EKG on 02/27 also shows sinus tachycardia at rate of 106bpm Leukocytosis WBC 19K -> 17K -> 18K -> 17K -> 14K --> 18k Likely due to steroids, no s/sx of infection Chronic Hyponatremia Na 130-132 Patient notes poor PO intake Continue home diuretics, if worsens consider holding HCTZ Discontinue potassium supplements at discharge due to hyperkalemia while on them Hypertension Continue home amlodipine, HCTZ, spironolactone BP mildly elevated 154/83, will monitor Rheumatoid arthritis Hold leflunomide Patient seen in collaboration with Dr Montero. Please see addendum. Thank you for this consultation. We will continue to follow this patient with you. A member of the [facility] team is available 18/04 via the role in [employer] - please don't hesitate to reach out with questions. I spent a total of 40 minutes coordinating, documenting and providing care for this patient excluding time spent in the performance of separately billed services or time spent by another provider/QHP. Admission and Anticipated Discharge Date Admission Date: February 25, 2025 Supervising Physician Co-Signing Physician Notes Patient seen and examined Agree with findings as detailed by Scarlet Cherry PA-C Subjective Patient seen and examined in room 352-2. is at bedside. Pt continues to report significant low back discomfort with associated weakness down RLE. She has chronic R foot edema for which she uses compression socks for this. She feels her pain is similar to pre surgery, no change. She was able to sit up in the chair this morning for almost an hour. Only small BM so far, some gas. Denies f/c/s, chest pain, sob, n/v. She is tolerating diet. She is requesting bedside weights. Review of Systems Review of Systems: All systems reviewed & are unremarkable except as noted in HPI & below Physical Exam Physical Exam: Gen: WD/WN, NAD, A&O x3 HEENT: Normocephalic, atraumatic, conjunctivae moist, sclerae anicteric, mucous membranes moist. Lung: Clear to Auscultation bilaterally, no wheezes/rales/rhonchi Heart: Regular rate, regular rhythm, no murmurs, rubs, or gallops Abdomen: Soft, NT, ND +BS x 4 Extremities: + 1 R pedeal edema, decreased lower ext rom R > L Skin: Warm, no rash, negative turgor. Results & Data Results & Data Vital Signs (Past 12 Hours) Vital Signs Temp Pulse Resp BP Pulse Ox O2 Del Method 03/04/25 08:03 36.7 C 110 H 17 154/83 H 93 Room Air Laboratory Results Short CBC 03/04/25 Range/Units 07:02 WBC 18.49 H (4.8-10.8) K/ul Hgb 9.5 L (12.0-16.0) g/dl Hct 27.6 L (37.0-47.0) % Plt Count 480 H (130-400) K/uL BMP 03/04/25 07:02 Sodium 131 L Potassium 4.2 Chloride 94 L Carbon Dioxide 27 BUN 16 Creatinine 0.75 Glucose 151 H Calcium 8.8 Medications Administered Current Inpatient Medications Acetaminophen (Acetaminophen 500 Mg Tab) 1,000 mg PO Q8H PAT[facility]ICK Stop: 04/02/25 08:59 Last Admin: 03/04/25 08:43 Dose: 1,000 mg Al Hydrox/Mg Hydrox/Simethicone (Aluminum/Magnesium Susp 30 Ml Udc) 30 ml PO Q6H PRN PRN Reason: Dyspepsia Stop: 03/27/25 14:53 Amlodipine Besylate (Amlodipine Besylate 5 Mg Tab) 5 mg PO BID PATRICK Stop: 03/27/25 20:59 Last Admin: 03/04/25 08:40 Dose: 5 mg Ascorbic Acid (Ascorbic Acid 500 Mg Tab) 500 mg PO DAILY PATR[facility] Stop: 03/28/25 08:59 Last Admin: 03/04/25 08:39 Dose: 500 mg Bisacodyl (Bisacodyl 10 Mg Supp) 10 mg NC DAILY PRN PRN Reason: Constipation Stop: 03/27/25 14:53 Cyclobenzaprine HCl (Cyclobenzaprine Hcl 5 Mg Tab) 5 mg PO TID PRN PRN Reason: muscle spasms Stop: 04/02/25 09:29 Last Admin: 03/04/25 10:48 Dose: 5 mg Diphenhydramine HCl (Diphenhydramine Capsule 25 Mg Cap) 25 mg PO Q6H PRN PRN Reason: Allergic Rhinitis/Insomnia Stop: 03/27/25 14:53 Last Admin: 02/27/25 20:24 Dose: 25 mg Famotidine (Famotidine 20 Mg Tab) 20 mg PO Q12H PRN PRN Reason: Dyspepsia Stop: 03/27/25 14:53 Last Admin: 03/01/25 09:25 Dose: 20 mg Hydrochlorothiazide (Hydrochlorothiazide 25 Mg Tab) 25 mg PO QAM PATRICK Stop: 03/30/25 10:54 Last Admin: 03/04/25 08:39 Dose: 25 mg Hydroxyzine HCl (Hydroxyzine Hcl 25 Mg Tab) 25 mg PO Q8H PRN PRN Reason: Anxiety Stop: 03/27/25 14:53 Last Admin: 02/27/25 04:30 Dose: 25 mg Promethazine HCl (Phenergan) 12.5 mg in 50.5 mls @ 202 mls/hr IV Q6H PRN PRN Reason: Nausea And Vomiting Stop: 03/27/25 14:53 Dexamethasone 8 mg/ Syringe 2 mls @ 1 mls/min IV Q8 PATRICK Stop: 04/02/25 13:59 Last Admin: 03/04/25 05:51 Dose: 1 mls/min Influenza Virus Vaccine Quadrival (Do Not Administer Flu Vaccine) 1 each N/A PRN PRN PRN Reason: Notification Stop: 03/27/25 14:53 Ketorolac Tromethamine (Ketorolac Tromethamine 15 Mg/Ml Vial) 15 mg IV Q6H PRN PRN Reason: Pain Stop: 03/07/25 15:59 Last Admin: 03/03/25 18:42 Dose: 15 mg Lidocaine (Lidocaine 5% 1 Patch) 1 patch TD QAM [facility] Stop: 04/02/25 09:59 Last Admin: 03/04/25 08:40 Dose: 1 patch Magnesium Hydroxide (Magnesium Hydroxide Susp 30 Ml Udc) 30 ml PO Q24H PRN PRN Reason: Constipation Stop: 03/27/25 14:53 Magnesium Oxide (Magnesium Oxide 400 Mg Tab) 400 mg PO DAILY [facility] Stop: 03/28/25 08:59 Last Admin: 03/04/25 08:40 Dose: 400 mg Metoclopramide HCl (Metoclopramide Hcl Inj 5 Mg/Ml 2 Ml Vial) 10 mg IV Q6H PRN PRN Reason: Nausea &/or Vomiting Stop: 03/27/25 14:53 Miscellaneous (Remove Lidoderm Patch) 1 each N/A DAILY@2100 [facility] Stop: 04/02/25 20:59 Last Admin: 03/03/25 21:24 Dose: 1 each Multivitamins (Multivitamin Tab) 1 tab PO DAILY [facility] Stop: 03/28/25 08:59 Last Admin: 03/04/25 08:40 Dose: 1 tab Naloxone HCl (Naloxone Hcl 0.4 Mg/1 Ml Vial/Carp) 0.1 mg IV Q5M PRN PRN Reason: Oversedation/Resp depression Stop: 03/27/25 14:53 Ondansetron HCl (Ondansetron Inj 2 Mg/Ml 2 Ml Vial) 4 mg IV Q6H PRN PRN Reason: Nausea &/or Vomiting Stop: 03/27/25 14:53 Ondansetron HCl (Ondansetron 4 Mg Od Tab) 4 mg PO Q6H PRN PRN Reason: Nausea Stop: 03/27/25 14:53 Last Admin: 02/26/25 18:26 Dose: 4 mg Oxycodone HCl (Oxycodone Hcl Ir 5 Mg Tab (Immediate Release)) 5 - 10 mg PO Q4H PRN PRN Reason: Pain & Pre PT Stop: 03/11/25 14:53 Last Admin: 03/04/25 07:48 Dose: 10 mg Pantoprazole Sodium (Pantoprazole 40 Mg Tab) 40 mg PO DAILYBL [facility] Stop: 03/30/25 10:29 Last Admin: 03/04/25 08:40 Dose: 40 mg Pneumococcal Polyvalent Vaccine (Do Not Administer Pneumococcal Vaccine) 1 each N/A PRN PRN PRN Reason: Notification Stop: 03/27/25 14:53 Senna/Docusate Sodium (Docusate Sodium/Senna 50/8.6mg Tab) 2 tab PO HS PATRICK Stop: 03/27/25 20:59 Last Admin: 03/03/25 21:22 Dose: 2 tab Sodium Biphosphate/Sodium Phosphate (Sod Phosphate/Sod Biphosphate Enema 132 Ml Btl) 132 ml NC ONE PRN PRN Reason: Constipation Stop: 03/27/25 14:53 Spironolactone (Spironolactone 25 Mg Tab) 25 mg PO QAM [facility] Stop: 03/31/25 08:59 Last Admin: 03/04/25 08:39 Dose: 25 mg Vitamin D (Cholecalciferol 25 Mcg (1000 Units) Tab) 25 mcg PO DAILY [facility] Stop: 03/28/25 08:59 Last Admin: 03/04/25 08:40 Dose: 25 mcg Zolpidem Tartrate (Zolpidem Tartrate 5 Mg Tab) 10 mg PO HS PRN PRN Reason: Sleep Stop: 03/27/25 14:59 Last Admin: 03/02/25 23:27 Dose: 10 mg
--- NOTE | 2025-03-04 19:17 | Magnetic Resonance Report ---
EXAM: MR lumbar spine wo con CLINICAL HISTORY: Leg weakness. Numbness bilat feet tingling surgery L1-L5 decompression and fusion 02/25/25. TECHNIQUE: Different pulse sequences were performed in different planes for the lumbar spine without contrast. Images were sent through PACs for diagnostic interpretation. COMPARISON: Fluoroscopy dated 02/25/2025. FINDINGS: Status post metallic hardware fixation by transpedicular screws/rakesh device at the L2, L3 L4, And L5 vertebrae. Metallic interbody fusion devices. The metallic hardware induces inevitable Blooming (ferromagnetic) artifacts, degrading the image quality. Partial Obscuration of the intervertebral discs by the metallic hardware.Spinolaminectomies of L2, L3, L4 and L5 neural arches opposite the corresponding L2-L3, L3-L4 and L4-L5 intervertebral discs. Postoperative changes are seen at the paraspinal muscles and overlying subcutaneous fat. There is edema of the L1-L2, L2-L3 and L4-L5 intervertebral discs. A large Collection of fluid signals is seen dominantly at the right aspect of the subcutaneous fat, extending from the level opposite the L1 vertebra down to the level opposite the L5 vertebra. A track-like extension is seen at the paraspinal muscles and the midline opposite the L4-L5 intervertebral disc . This Fluid collection measures 15 x 5.1 x 3.1 cm in the largest craniocaudal, [id number] and anteroposterior dimensions. The etiological probabilities include Postoperative seroma, CSF collection, secondary to dural tear vs. Inflammatory collection with abscess formation. Clinical, laboratory correlation and further workup are recommended as appropriate. Dextroconvex lumbar scoliosis.The Chavez Lippmann's angle measures 10.8°. The scanned intervertebral discs show variable degrees of degeneration, denoted by low signal intensity on T2 WI with a relative reduction in height. Multiple Schmorl's nodes are seen at the lower thoracic and upper lumbar vertebral end plates. The marrow signals of the scanned osseous structures are homogeneous. Maintained vertebral heights with intact vertebral bodies and neural arches. Level by Level analysis: T12-L1: There is no focal disc pathology, central canal stenosis, or neural foraminal stenosis. L1-L2: There is A 3.1 mm annular bulge indenting the thecal sac, compromising the subarticular recesses. There is mild central canal stenosis and mild bilateral neural foraminal stenosis with impingement of the emerging nerve roots. Buckled ligamenta flava and arthropathic facet joints augment effects. L2-L3: Metallic hardware is seen in situ. The residual disc compromises the subarticular recesses and neural foramina with impingement of the emerging nerve roots. L3-L4: There is Adequate surgical decompression. L4-L5: Metallic hardware is seen in situ. A 3.1 mm residual disc Annular bulge indenting the thecal sac and compromises the subarticular recesses and neural foramina with impingement of the emerging nerve roots.Partial Obscuration of the right aspect of the spinal canal by the metallic hardware. CT correlation is recommended to justify or deny possible metallic hardware failure. L5-S1: There is no focal disc pathology, central canal stenosis, or neural foraminal stenosis. Hypertrophic arthropathy of the facet joints is seen more on the right side, with consequent compromise of the neural foramina. More on the right side. The lower dorsal spinal cord, conus medullaris, and cauda equina nerve roots are unremarkable. Paravertebral soft tissue is unremarkable. No developmental canal stenosis. IMPRESSION: 1. Status post metallic hardware fixation by transpedicular screws/rakesh device at L2, L3 L4, And L5 vertebrae. Metallic interbody fusion devices. The metallic hardware induces inevitable Blooming (ferromagnetic) artifacts, degrading the image quality. Partial Obscuration of the intervertebral discs by the metallic hardware. Spinolaminectomies of L2, L3, L4 and L5 neural arches opposite the corresponding L2-L3, L3-L4 and L4-L5 intervertebral discs. Postoperative changes are seen at the paraspinal muscles and overlying subcutaneous fat. There is edema of the L1-L2, L2-L3 and L4-L5 intervertebral discs. A large Collection of fluid signals is seen dominantly at the right aspect of the subcutaneous fat, extending from the level opposite the L1 vertebra down to the level opposite the L5 vertebra. A track-like extension is seen at the paraspinal muscles and the midline opposite the L4-L5 intervertebral disc. This Fluid collection measures 15 x 5.1 x 3.1 cm in the largest craniocaudal, [id number] and anteroposterior dimensions. The etiological probabilities include Postoperative seroma, CSF collection, secondary to dural tear vs. Inflammatory collection with abscess formation. Clinical, laboratory correlation and further workup are recommended as appropriate. 2. Dextroconvex lumbar scoliosis.The Chavez Lippmann's angle measures 10.8°. 3. Multiple Schmorl's nodes. 4. L1-L2: There is A 3.1 mm annular bulge. 5. L2-L3: Metallic hardware is seen in situ. The residual disc compromises the subarticular recesses and neural foramina. 6. L3-L4: There is Adequate surgical decompression. 7. L4-L5: Metallic hardware is seen in situ. A 3.1 mm residual disc Annular bulge.Partial Obscuration of the right aspect of the spinal canal by the metallic hardware. CT correlation is recommended to justify or deny possible metallic hardware failure. 8. L5-S1: Hypertrophic arthropathy of the facet joints is seen more on the right side, with consequent compromise of the neural foramina. More on the right side. 9. Multilevel lumbar disc pathologies and postoperative status with effects exerted upon the central spinal canal, subarticular recesses, and neural foramina. Postoperative changes, buckled ligamenta flava, and arthropathic facet joints augment effects. Detailed clinical, laboratory and CT correlation is recommended. 10. The comparison matches the radiographic findings. Electronically signed by Neftali Lundberg 03-04-2025 7:17 PM
--- NOTE | 2025-03-05 08:15 | Orthopedic Progress Note ---
Date of Service March 05, 2025 Assessment & Plan (1) Other spondylosis with radiculopathy, lumbar region: Plan: MRI lumbar spine from yesterday does demonstrate subcutaneous fluid collection. I do not appreciate any significant thecal compression. I will obtain a CAT scan today for further bony detail. I will make her n.p.o. after midnight for possible I&D lumbar spine. Admission and Anticipated Discharge Date Admission Date: February 25, 2025 Subjective Patient continues to complain of global pain. It is going down both legs. Physical Exam Physical Exam: On exam she is able to sit up in bed. Incision is healing appropriately. There is no gross erythema or drainage. She has marked tenderness palpation of the lower extremities. She continues to have weakness to bilateral dorsiflexion. Results & Data Vital Signs (Past 12 Hours) Vital Signs Temp Pulse Resp BP Pulse Ox O2 Del Method 03/05/25 06:59 36.4 C L 89 16 133/74 93 Room Air Queries Orthopedic Spine Acute Posthemorrhagic Anemia: Yes Obesity: Yes
[2025-03-05 09:48] LABS: Hematocrit (blood only) 27.5 % (37.0-47.0); Hemoglobin 9.1 g/dl (12.0-16.0); Immature Granulocytes # (auto) 0.28 K/uL (0.01-0.20); Immature Granulocytes % (auto) 1.8 %; Mean Corpuscular Hemoglobin 27.1 pg (25.0-34.0); Mean Corpuscular Volume 81.8 fL (80.0-100.0); Platelet Count 540 K/uL (130-400); RDW Standard Deviation 41.8 fL (36.4-46.3); Red Blood Count 3.36 M/uL (4.20-5.40); White Blood Count 15.61 K/ul (4.8-10.8)
[2025-03-05 10:02] LABS: Anion Gap 11.0 (3-11); Blood Urea Nitrogen 22.0 mg/dl (6-23); Calcium 8.6 mg/dl (8.6-10.3); Carbon Dioxide 24.0 mmol/L (21-32); Chloride 94.0 mmol/L (98-107); Creatinine Clr Calc Pharmacy 67.4 ml/min; Glucose 241.0 mg/dl (70-99(Fasting)); Potassium 3.9 mmol/L (3.5-5.1); Sodium 129.0 mmol/L (136-145)
--- NOTE | 2025-03-05 10:43 | CT Scan Report ---
CT OF THE LUMBAR SPINE CLINICAL HISTORY: Postoperative evaluation. COMPARISON STUDY: Lumbar spine fluoroscopic images February 25, 2025. Lumbar spine MRI March 04, 2025. TECHNIQUE: Helical axial images of the lumbar spine were obtained. Sagittal and coronal reconstruct ions were viewed. Automated exposure control was utilized for the study. A dose lowering technique was utilized adhering to the principles of ALARA. FINDINGS: For purposes of numbering on this exam, the L5-S1 disc space is assigned to axial image 341 of [id number]. There are postoperative findings consistent with L1-L5 posterior decompression at L2-L5 pedi brian screw fusion with discectomy and interbody spacer placement at the L2-L3, L3-L4 and L4-L5 levels. Lucency adjacent to the bilateral L5 pedicle screws is noted. A change in orientation of the L4-L5 s pacers with superior migration is noted when compared to fluoroscopic images February 25, 2025. Superior d isplacement of the left-sided spacer is greater. There is associated erosion along the inferior endpl ate of L4 and fragmentation of the posterior cortex. A suspected associated bone fragment posterior t o the L4 vertebral body measures 1.1 cm. Evaluation is difficult to image due to artifact from the cabrera rgical hardware. There is an acute appearing L5 vertebral body fracture with 30% loss of vertebral genevieve dy height. No additional fractures are identified. A subcutaneous operative bed fluid collection tiffany ures 13.7 x 4.5 x 3 cm, shown on MRI of March 14, 2025. Evaluation of the central canal is nondiagnost ic given CT technique and artifact from the hardware. IMPRESSION: 1. Status post L1-L5 posterior decompression and L2-L5 pedicle screw fusion with interbody spacer edward cement at the L2-L3, L3-L4 and L4-L5 levels. 2. Change in orientation with superior migration of the L4-L5 spacers, left greater than right. Assoc iated erosion of the inferior endplate of L4 with apparent fragmentation of the posterior cortex of L 4 with associated bone fragment. Evaluation is suboptimal given streak artifact from the hardware. An underlying infectious process cannot be completely excluded. 3. L5 vertebral body fracture with 30% loss of vertebral body height. 4. Lucency adjacent to the bilateral L5 pedicle screws. This may represent loosening. An infectious p rocess could appear similar. 5. Subcutaneous operative bed fluid collection which measures 13.7 x 4.5 x 3 cm. 6. Nondiagnostic evaluation of the central canal and neural foramen given CT technique and artifact f rom the surgical hardware. ACT 112: Negative or not required by law. Electronically signed by: John Sanchez M.D. 03/05/2025 10:41 AM
--- NOTE | 2025-03-05 10:52 | Hospitalist Progress Note ---
Date of Service March 05, 2025 Assessment & Plan (1) Other spondylosis with radiculopathy, lumbar region: (2) Acute blood loss anemia: (3) Tachycardia: (4) Leukocytosis: (5) Hyponatremia: (6) Hyperkalemia: (7) Hypertension: (8) Hyperlipidemia: (9) Rheumatoid arthritis: Plan 69 year old female with PMH significant for hypertension, hyperlipidemia, rheumatoid arthritis, palpitations, history of bilateral pulmonary emboli, and lumbar spondylosis with radiculopathy who underwent L1-L5 decompression and fusion on 02/25/[address] Nova. We have been consulted for post operative medical management. Other spondylosis with radiculopathy, lumbar region POD#8 L1-L5 decompression and fusion by Dr. Nova Patient still having significant pain, Ordered cyclobenzaprine for spasms, scheduled tylenol, daily lidocaine patch, encouraged PRN toradol and oxycodone Continue IV steroid course per Dr Nova Continue PT as tolerated - rehab at discharge, Lumbar spine MRI: . A large Collection of fluid signals is seen dominantly at the right aspect of the subcutaneous fat, extending from the level opposite the L1 vertebra down to the level opposite the L5 vertebra. A track-like extension is seen at the paraspinal muscles and the midline opposite the L4-L5 intervertebral disc. This Fluid collection measures 15 x 5.1 x 3.1 cm in the largest craniocaudal, [id number] and anteroposterior dimensions. The etiological probabilities include Postoperative seroma, CSF collection NPO after midnight for possible I and D tomorrow by Dr. Nova Acute blood loss anemia 2/2 expected surgical blood loss Pre op hgb 12.1 , hgb stable at 9.1 Patient tachycardic but otherwise asymptomatic Tachycardia Likely due to pain/anemia, patient asymptomatic HR 90-115s Preop EKG on 02/11/2025 with sinus tachycardia at rate of 105bpm EKG on 02/27 also shows sinus tachycardia at rate of 106bpm Leukocytosis WBC 19K -> 17K -> 18K -> 17K -> 14K --> 18k-->15k Likely due to steroids, no s/sx of infection obtain cbc, bmp, esr, crp in a.m. Chronic Hyponatremia Na 130-132 Patient notes poor PO intake Sodium dropped to 129 today will hold HCTZ and monitor sodium levels Hypertension Continue home amlodipine, spironolactone hold HCTZ for low sodium Rheumatoid arthritis Hold leflunomide Patient seen in collaboration with Dr Montero. Please see addendum. Thank you for this consultation. We will continue to follow this patient with you. [facility] via the role in [employer] - please don't hesitate to reach out with questions. I spent a total of 42 minutes coordinating, documenting and providing care for this patient excluding time spent in the performance of separately billed services or time spent by another provider/QHP. Admission and Anticipated Discharge Date Admission Date: February 25, 2025 Supervising Physician Co-Signing Physician Notes Patient seen and examined Agree with findings and plans as detailed by Scarlet Cherry PA-C Subjective Pt seen and examined in room 352-2. Follow up lumbar surgery. Continues to have significant pain and weakness. She reports they are planning to take her back to OR tomorrow. Denies saddle anesthesia or bowel/bladder incontinence. She denies f/c/s, myalgias, chest pain, sob, n/v. Had multiple BMs yesterday. Review of Systems Review of Systems: All systems reviewed & are unremarkable except as noted in HPI & below Physical Exam Physical Exam: Gen: WD/WN, NAD, A&O x3 HEENT: Normocephalic, atraumatic, conjunctivae moist, sclerae anicteric, mucous membranes moist. Lung: Clear to Auscultation bilaterally, no wheezes/rales/rhonchi Heart: Regular rate, regular rhythm, no murmurs, rubs, or gallops Abdomen: Soft, NT, ND +BS x 4 Extremities: + 1 R pedeal edema Skin: Warm, no rash, negative turgor. Results & Data Results & Data Vital Signs (Past 12 Hours) Vital Signs Temp Pulse Resp BP Pulse Ox O2 Del Method 03/05/25 06:59 36.4 C L 89 16 133/74 93 Room Air Laboratory Results I have independently reviewed and interpreted patient's cbc, bmp Diagnostic Findings Lumbar Spine MRI 03/04/25 11:06 EXAM: MR lumbar spine wo con CLINICAL HISTORY: Leg weakness. Numbness bilat feet tingling surgery L1-L5 decompression and fusion 02/25/25. TECHNIQUE: Different pulse sequences were performed in different planes for the lumbar spine without contrast. Images were sent through PACs for diagnostic interpretation. COMPARISON: Fluoroscopy dated 02/25/2025. FINDINGS: Status post metallic hardware fixation by transpedicular screws/rakesh device at the L2, L3 L4, And L5 vertebrae. Metallic interbody fusion devices. The metallic hardware induces inevitable Blooming (ferromagnetic) artifacts, degrading the image quality. Partial Obscuration of the intervertebral discs by the metallic hardware.Spinolaminectomies of L2, L3, L4 and L5 neural arches opposite the corresponding L2-L3, L3-L4 and L4-L5 intervertebral discs. Postoperative changes are seen at the paraspinal muscles and overlying subcutaneous fat. There is edema of the L1-L2, L2-L3 and L4-L5 intervertebral discs. A large Collection of fluid signals is seen dominantly at the right aspect of the subcutaneous fat, extending from the level opposite the L1 vertebra down to the level opposite the L5 vertebra. A track-like extension is seen at the paraspinal muscles and the midline opposite the L4-L5 intervertebral disc . This Fluid collection measures 15 x 5.1 x 3.1 cm in the largest craniocaudal, [id number] and anteroposterior dimensions. The etiological probabilities include Postoperative seroma, CSF collection, secondary to dural tear vs. Inflammatory collection with abscess formation. Clinical, laboratory correlation and further workup are recommended as appropriate. Dextroconvex lumbar scoliosis.The Chavez Lippmann's angle measures 10.8°. The scanned intervertebral discs show variable degrees of degeneration, denoted by low signal intensity on T2 WI with a relative reduction in height. Multiple Schmorl's nodes are seen at the lower thoracic and upper lumbar vertebral end plates. The marrow signals of the scanned osseous structures are homogeneous. Maintained vertebral heights with intact vertebral bodies and neural arches. Level by Level analysis: T12-L1: There is no focal disc pathology, central canal stenosis, or neural foraminal stenosis. L1-L2: There is A 3.1 mm annular bulge indenting the thecal sac, compromising the subarticular recesses. There is mild central canal stenosis and mild bilateral neural foraminal stenosis with impingement of the emerging nerve roots. Buckled ligamenta flava and arthropathic facet joints augment effects. L2-L3: Metallic hardware is seen in situ. The residual disc compromises the subarticular recesses and neural foramina with impingement of the emerging nerve roots. L3-L4: There is Adequate surgical decompression. L4-L5: Metallic hardware is seen in situ. A 3.1 mm residual disc Annular bulge indenting the thecal sac and compromises the subarticular recesses and neural foramina with impingement of the emerging nerve roots.Partial Obscuration of the right aspect of the spinal canal by the metallic hardware. CT correlation is recommended to justify or deny possible metallic hardware failure. L5-S1: There is no focal disc pathology, central canal stenosis, or neural foraminal stenosis. Hypertrophic arthropathy of the facet joints is seen more on the right side, with consequent compromise of the neural foramina. More on the right side. The lower dorsal spinal cord, conus medullaris, and cauda equina nerve roots are unremarkable. Paravertebral soft tissue is unremarkable. No developmental canal stenosis. IMPRESSION: 1. Status post metallic hardware fixation by transpedicular screws/rakesh device at L2, L3 L4, And L5 vertebrae. Metallic interbody fusion devices. The metallic hardware induces inevitable Blooming (ferromagnetic) artifacts, degrading the image quality. Partial Obscuration of the intervertebral discs by the metallic hardware. Spinolaminectomies of L2, L3, L4 and L5 neural arches opposite the corresponding L2-L3, L3-L4 and L4-L5 intervertebral discs. Postoperative changes are seen at the paraspinal muscles and overlying subcutaneous fat. There is edema of the L1-L2, L2-L3 and L4-L5 intervertebral discs. A large Collection of fluid signals is seen dominantly at the right aspect of the subcutaneous fat, extending from the level opposite the L1 vertebra down to the level opposite the L5 vertebra. A track-like extension is seen at the paraspinal muscles and the midline opposite the L4-L5 intervertebral disc. This Fluid collection measures 15 x 5.1 x 3.1 cm in the largest craniocaudal, [id number] and anteroposterior dimensions. The etiological probabilities include Postoperative seroma, CSF collection, secondary to dural tear vs. Inflammatory collection with abscess formation. Clinical, laboratory correlation and further workup are recommended as appropriate. 2. Dextroconvex lumbar scoliosis.The Chavez Lippmann's angle measures 10.8°. 3. Multiple Schmorl's nodes. 4. L1-L2: There is A 3.1 mm annular bulge. 5. L2-L3: Metallic hardware is seen in situ. The residual disc compromises the subarticular recesses and neural foramina. 6. L3-L4: There is Adequate surgical decompression. 7. L4-L5: Metallic hardware is seen in situ. A 3.1 mm residual disc Annular bulge.Partial Obscuration of the right aspect of the spinal canal by the metallic hardware. CT correlation is recommended to justify or deny possible metallic hardware failure. 8. L5-S1: Hypertrophic arthropathy of the facet joints is seen more on the right side, with consequent compromise of the neural foramina. More on the right side. 9. Multilevel lumbar disc pathologies and postoperative status with effects exerted upon the central spinal canal, subarticular recesses, and neural foramina. Postoperative changes, buckled ligamenta flava, and arthropathic facet joints augment effects. Detailed clinical, laboratory and CT correlation is recommended. 10. The comparison matches the radiographic findings. Electronically signed by Neftali Lundberg 03-04-2025 7:[address] 03/05/25 08:13 CT OF THE LUMBAR SPINE CLINICAL HISTORY: Postoperative evaluation. COMPARISON STUDY: Lumbar spine fluoroscopic images February 25, 2025. Lumbar spine MRI March 04, 2025. TECHNIQUE: Helical axial images of the lumbar spine were obtained. Sagittal and coronal reconstructions were viewed. Automated exposure control was utilized for the study. A dose lowering technique was utilized adhering to the principles of ALARA. FINDINGS: For purposes of numbering on this exam, the L5-S1 disc space is assigned to axial image 341 of [id number]. There are postoperative findings consistent with L1-L5 posterior decompression at L2-L5 pedicle screw fusion with discectomy and interbody spacer placement at the L2-L3, L3-L4 and L4-L5 levels. Lucency adjacent to the bilateral L5 pedicle screws is noted. A change in orientation of the L4-L5 spacers with superior migration is noted when compared to fluoroscopic images February 25, 2025. Superior displacement of the left-sided spacer is greater. There is associated erosion along the inferior endplate of L4 and fragmentation of the posterior cortex. A suspected associated bone fragment posterior to the L4 vertebral body measures 1.1 cm. Evaluation is difficult to image due to artifact from the surgical hardware. There is an acute appearing L5 vertebral body fracture with 30% loss of vertebral body height. No additional fractures are identified. A subcutaneous operative bed fluid collection measures 13.7 x 4.5 x 3 cm, shown on MRI of March 14, 2025. Evaluation of the central canal is nondiagnostic given CT technique and artifact from the hardware. IMPRESSION: 1. Status post L1-L5 posterior decompression and L2-L5 pedicle screw fusion with interbody spacer placement at the L2-L3, L3-L4 and L4-L5 levels. 2. Change in orientation with superior migration of the L4-L5 spacers, left greater than right. Associated erosion of the inferior endplate of L4 with apparent fragmentation of the posterior cortex of L4 with associated bone fragment. Evaluation is suboptimal given streak artifact from the hardware. An underlying infectious process cannot be completely excluded. 3. L5 vertebral body fracture with 30% loss of vertebral body height. 4. Lucency adjacent to the bilateral L5 pedicle screws. This may represent loosening. An infectious process could appear similar. 5. Subcutaneous operative bed fluid collection which measures 13.7 x 4.5 x 3 cm. 6. Nondiagnostic evaluation of the central canal and neural foramen given CT technique and artifact from the surgical hardware. ACT 112: Negative or not required by law. Electronically signed by: John Sanchez M.D. 03/05/2025 10:41 AM Medications Administered Current Inpatient Medications Acetaminophen (Acetaminophen 500 Mg Tab) 1,000 mg PO Q8H PATRICK Stop: 04/02/25 08:59 Last Admin: 03/05/25 08:02 Dose: 1,000 mg Al Hydrox/Mg Hydrox/Simethicone (Aluminum/Magnesium Susp 30 Ml Udc) 30 ml PO Q6H PRN PRN Reason: Dyspepsia Stop: 03/27/25 14:53 Amlodipine Besylate (Amlodipine Besylate 5 Mg Tab) 5 mg PO BID PATRICK Stop: 03/27/25 20:59 Last Admin: 03/05/25 08:04 Dose: 5 mg Ascorbic Acid (Ascorbic Acid 500 Mg Tab) 500 mg PO DAILY PATRICK Stop: 03/28/25 08:59 Last Admin: 03/05/25 08:05 Dose: 500 mg Bisacodyl (Bisacodyl 10 Mg Supp) 10 mg MT DAILY PRN PRN Reason: Constipation Stop: 03/27/25 14:53 Cyclobenzaprine HCl (Cyclobenzaprine Hcl 5 Mg Tab) 5 mg PO TID PRN PRN Reason: muscle spasms Stop: 04/02/25 09:29 Last Admin: 03/05/25 05:34 Dose: 5 mg Diphenhydramine HCl (Diphenhydramine Capsule 25 Mg Cap) 25 mg PO Q6H PRN PRN Reason: Allergic Rhinitis/Insomnia Stop: 03/27/25 14:53 Last Admin: 02/27/25 20:24 Dose: 25 mg Famotidine (Famotidine 20 Mg Tab) 20 mg PO Q12H PRN PRN Reason: Dyspepsia Stop: 03/27/25 14:53 Last Admin: 03/05/25 08:02 Dose: 20 mg Hydrochlorothiazide (Hydrochlorothiazide 25 Mg Tab) [facility] [place] Stop: 03/30/25 10:54 Last Admin: 03/05/25 08:04 Dose: 25 mg Hydroxyzine HCl (Hydroxyzine Hcl 25 Mg Tab) 25 mg PO Q8H PRN PRN Reason: Anxiety Stop: 03/27/25 14:53 Last Admin: 02/27/25 04:30 Dose: 25 mg Promethazine HCl (Phenergan) 12.5 mg in 50.5 mls @ 202 mls/hr IV Q6H PRN PRN Reason: Nausea And Vomiting Stop: 03/27/25 14:53 Dexamethasone 8 mg/ Syringe 2 mls @ 1 mls/min IV Q8 PATRICK Stop: 04/02/25 13:59 Last Admin: 03/05/25 05:34 Dose: 1 mls/min Influenza Virus Vaccine Quadrival (Do Not Administer Flu Vaccine) 1 each N/A PRN PRN PRN Reason: Notification Stop: 03/27/25 14:53 Ketorolac Tromethamine (Ketorolac Tromethamine 15 Mg/Ml Vial) 15 mg IV Q6H PRN PRN Reason: Pain Stop: 03/07/25 15:59 Last Admin: 03/05/25 08:02 Dose: 15 mg Lidocaine (Lidocaine 5% 1 Patch) 1 patch TD [facility] Stop: 04/02/25 09:59 Last Admin: 03/05/25 08:05 Dose: 1 patch Magnesium Hydroxide (Magnesium Hydroxide Susp 30 Ml Udc) 30 ml PO Q24H PRN PRN Reason: Constipation Stop: 03/27/25 14:53 Magnesium Oxide (Magnesium Oxide 400 Mg Tab) 400 mg PO DAILY [facility] Stop: 03/28/25 08:59 Last Admin: 03/05/25 08:05 Dose: 400 mg Metoclopramide HCl (Metoclopramide Hcl Inj 5 Mg/Ml 2 Ml Vial) 10 mg IV Q6H PRN PRN Reason: Nausea &/or Vomiting Stop: 03/27/25 14:53 Miscellaneous (Remove Lidoderm Patch) 1 each N/A DAILY@2100 [facility] Stop: 04/02/25 20:59 Last Admin: 03/04/25 20:36 Dose: 1 each Multivitamins (Multivitamin Tab) 1 tab PO DAILY [facility] Stop: 03/28/25 08:59 Last Admin: 03/05/25 08:04 Dose: 1 tab Naloxone HCl (Naloxone Hcl 0.4 Mg/1 Ml Vial/Carp) 0.1 mg IV Q5M PRN PRN Reason: Oversedation/Resp depression Stop: 03/27/25 14:53 Ondansetron HCl (Ondansetron Inj 2 Mg/Ml 2 Ml Vial) 4 mg IV Q6H PRN PRN Reason: Nausea &/or Vomiting Stop: 03/27/25 14:53 Ondansetron HCl (Ondansetron 4 Mg Od Tab) 4 mg PO Q6H PRN PRN Reason: Nausea Stop: 03/27/25 14:53 Last Admin: 02/26/25 18:26 Dose: 4 mg Oxycodone HCl (Oxycodone Hcl Ir 5 Mg Tab (Immediate Release)) 5 - 10 mg PO Q4H PRN PRN Reason: Pain & Pre PT Stop: 03/11/25 14:53 Last Admin: 03/05/25 07:56 Dose: 10 mg Pantoprazole Sodium (Pantoprazole 40 Mg Tab) 40 mg PO DAILYBL [facility] Stop: 03/30/25 10:29 Last Admin: 03/05/25 09:36 Dose: 40 mg Pneumococcal Polyvalent Vaccine (Do Not Administer Pneumococcal Vaccine) 1 each N/A PRN PRN PRN Reason: Notification Stop: 03/27/25 14:53 Senna/Docusate Sodium (Docusate Sodium/Senna 50/8.6mg Tab) 2 tab PO HS [facility] Stop: 03/27/25 20:59 Last Admin: 03/04/25 20:36 Dose: 2 tab Sodium Biphosphate/Sodium Phosphate (Sod Phosphate/Sod Biphosphate Enema 132 Ml Btl) 132 ml MT ONE PRN PRN Reason: Constipation Stop: 03/27/25 14:53 Spironolactone (Spironolactone 25 Mg Tab) 25 mg PO QAM PATRICK Stop: 03/31/25 08:59 Last Admin: 03/05/25 08:03 Dose: 25 mg Vitamin D (Cholecalciferol 25 Mcg (1000 Units) Tab) 25 mcg PO DAILY PATRICK Stop: 03/28/25 08:59 Last Admin: 03/05/25 08:04 Dose: 25 mcg Zolpidem Tartrate (Zolpidem Tartrate 5 Mg Tab) 10 mg PO HS PRN PRN Reason: Sleep Stop: 03/27/25 14:59 Last Admin: 03/02/25 23:27 Dose: 10 mg
[2025-03-05] MEDS ORDERED: DEXTROSE 50% 50 ML SYRINGE IV PRN (10:54)
[2025-03-05] MEDS ORDERED: CARBOHYDRATES FOR HYPOGLYCEMIA PO PRN (10:54)
[2025-03-05] MEDS ORDERED: GLUCAGON FOR INJ 1 MG VIAL SQ PRN (10:54)
[2025-03-05] MEDS ORDERED: GLUCOSE 40% GEL 15 GM TUBE PO PRN (10:54)
[2025-03-05] MEDS ORDERED: GLUCOSE 10 TAB/TUBE PO PRN (10:54)
[2025-03-06] MEDS: HYDROmorphone INJ 0.5 MG/0.5 ML SYR IV STA (05:55)
[2025-03-06 06:58] LABS: Hematocrit (blood only) 28.1 % (37.0-47.0); Hemoglobin 9.3 g/dl (12.0-16.0); Immature Granulocytes # (auto) 0.36 K/uL (0.01-0.20); Immature Granulocytes % (auto) 2.1 %; Mean Corpuscular Hemoglobin 26.9 pg (25.0-34.0); Mean Corpuscular Volume 81.2 fL (80.0-100.0); Platelet Count 537 K/uL (130-400); RDW Standard Deviation 42.4 fL (36.4-46.3); Red Blood Count 3.46 M/uL (4.20-5.40); White Blood Count 17.26 K/ul (4.8-10.8)
[2025-03-06 07:43] LABS: Hemoglobin A1C 6.3 % (4.5-5.6)
[2025-03-06 08:06] LABS: Anion Gap 12.0 (3-11); Blood Urea Nitrogen 29.0 mg/dl (6-23); Calcium 8.7 mg/dl (8.6-10.3); Carbon Dioxide 24.0 mmol/L (21-32); Chloride 96.0 mmol/L (98-107); Creatinine Clr Calc Pharmacy 75.8 ml/min; Glucose 191.0 mg/dl (70-99(Fasting)); Potassium 4.3 mmol/L (3.5-5.1); Sodium 132.0 mmol/L (136-145)
--- NOTE | 2025-03-06 09:53 | Orthopedic Progress Note ---
Date of Service March 06, 2025 Assessment & Plan (1) Lumbar compression fracture: Plan: CAT scan of the lumbar spine demonstrates evidence of inferior endplate fracture L4 with fracture of the L5 pedicle on the right. Plan at this point I am going to have to change the operative plan. Will have to revise the fusion at this level. We will plan for surgery first thing in the morning. N.p.o. after midnight. Admission and Anticipated Discharge Date Admission Date: February 25, 2025 Subjective Patient continuing to note back pain and leg weakness. She is comfortable in bed. Physical Exam Physical Exam: On exam she continues to demonstrate foot drop right greater than left. Sensory is intact. Results & Data Vital Signs (Past 12 Hours) Vital Signs Temp Pulse Resp BP Pulse Ox O2 Del Method 03/06/25 07:00 37.0 C 86 16 148/82 H 94 Room Air 03/06/25 04:50 36.3 C L 84 20 140/84 94 Room Air Queries Orthopedic Spine Acute Posthemorrhagic Anemia: Yes Obesity: Yes
--- NOTE | 2025-03-06 10:46 | Hospitalist Progress Note ---
Date of Service March 06, 2025 Assessment & Plan (1) Other spondylosis with radiculopathy, lumbar region: (2) Acute blood loss anemia: (3) Tachycardia: (4) Leukocytosis: (5) Hyponatremia: (6) Hyperkalemia: (7) Hypertension: (8) Hyperlipidemia: (9) Rheumatoid arthritis: Plan 69 year old female with PMH significant for hypertension, hyperlipidemia, rheumatoid arthritis, palpitations, history of bilateral pulmonary emboli, and lumbar spondylosis with radiculopathy who underwent L1-L5 decompression and fusion on 02/25/[address] Nova. We have been consulted for post operative medical management. Other spondylosis with radiculopathy, lumbar region POD#8 L1-L5 decompression and fusion by Dr. Nova Patient still having significant pain, Ordered cyclobenzaprine for spasms, scheduled tylenol, daily lidocaine patch, encouraged PRN toradol and oxycodone Continue IV steroid course per Dr Nova Continue PT as tolerated - rehab at discharge, Lumbar spine MRI: . A large Collection of fluid signals is seen dominantly at the right aspect of the subcutaneous fat, extending from the level opposite the L1 vertebra down to the level opposite the L5 vertebra. A track-like extension is seen at the paraspinal muscles and the midline opposite the L4-L5 intervertebral disc. This Fluid collection measures 15 x 5.1 x 3.1 cm in the largest craniocaudal, [id number] and anteroposterior dimensions. The etiological probabilities include Postoperative seroma, CSF collection After further review of Lumbar Spine CT ordered after MRI Dr Nova feels end plate fracture of L4 and pedicle fx of L5 on the right Plan is to now undergo revision first thing in the morning on 03/07 Acute blood loss anemia 2/2 expected surgical blood loss Pre op hgb 12.1 , hgb stable at 9.3 no indication for transfusion at thie time Tachycardia Likely due to pain/anemia, patient asymptomatic HR 90-115s Preop EKG on 02/11/2025 with sinus tachycardia at rate of 105bpm EKG on 02/27 also shows sinus tachycardia at rate of 106bpm Leukocytosis ranging from 15-19k Likely due to steroids, no s/sx of infection esr/crp elevated which in nonspecific but likely in setting of recent surgery, no fever Chronic Hyponatremia Na 130-132 Patient notes poor PO intake Sodium dropped to 129 today will hold HCTZ and monitor sodium levels Pre Diabetes Steroid induced hyperglycemia A1C 6.3 BSG elevated likely in setting of IV steroids, 24hr review shows consistent elevation will add novolog coverage for now and reduce dexamethasone to 4mg Hypertension Continue home amlodipine, spironolactone hold HCTZ for low sodium, resume when able Rheumatoid arthritis Hold leflunomide Thank you for this consultation. We will continue to follow this patient with you. A member of the [facility] Hospitalist team is available 18/04 via the role in [employer] - please don't hesitate to reach out with questions. I spent a total of 45 minutes coordinating, documenting and providing care for this patient excluding time spent in the performance of separately billed services or time spent by another provider/QHP. Admission and Anticipated Discharge Date Admission Date: February 25, 2025 Subjective Pt had a fall overnight in the bathroom. She states her leg just gave out. She denies hitting or head or injury. She is just in more pain. Denies f/c/s, chest pain, sob, n/v. Review of Systems Review of Systems: All systems reviewed & are unremarkable except as noted in HPI & below Physical Exam Physical Exam: Gen: WD/WN, NAD, A&O x3, F, lying in bed, flat affected HEENT: Normocephalic, atraumatic, conjunctivae moist, sclerae anicteric, mucous membranes moist. Lung: Clear to Auscultation bilaterally, no wheezes/rales/rhonchi Heart: Regular rate, regular rhythm, no murmurs, rubs, or gallops Abdomen: Soft, NT, ND +BS x 4 Extremities: + 1 R pedal edema Skin: Warm, no rash, negative turgor. Results & Data Results & Data Vital Signs (Past 12 Hours) Vital Signs Temp Pulse Resp BP Pulse Ox O2 Del Method 03/06/25 07:00 37.0 C 86 16 148/82 H 94 Room Air 03/06/25 04:50 36.3 C L 84 20 140/84 94 Room Air Laboratory Results Short CBC 03/06/25 Range/Units 05:24 WBC 17.26 H (4.8-10.8) K/ul Hgb 9.3 L (12.0-16.0) g/dl Hct 28.1 L (37.0-47.0) % Plt Count 537 H (130-400) K/uL BMP 03/06/25 05:24 Sodium 132 L Potassium 4.3 Chloride 96 L Carbon Dioxide 24 BUN 29 H Creatinine 0.80 Glucose 191 H Calcium 8.7 I have independently reviewed and interpreted patient's cbc, bmp, esr, crp Medications Administered Current Inpatient Medications Acetaminophen (Acetaminophen 500 Mg Tab) 1,000 mg PO Q8H PATRICK Stop: 04/02/25 08:59 Last Admin: 03/06/25 08:18 Dose: 1,000 mg Al Hydrox/Mg Hydrox/Simethicone (Aluminum/Magnesium Susp 30 Ml Udc) 30 ml PO Q6H PRN PRN Reason: Dyspepsia Stop: 03/27/25 14:53 Amlodipine Besylate (Amlodipine Besylate 5 Mg Tab) 5 mg PO BID PATRICK Stop: 03/27/25 20:59 Last Admin: 03/06/25 08:19 Dose: 5 mg Ascorbic Acid (Ascorbic Acid 500 Mg Tab) 500 mg PO DAILY PATRICK Stop: 03/28/25 08:59 Last Admin: 03/06/25 08:19 Dose: 500 mg Bisacodyl (Bisacodyl 10 Mg Supp) 10 mg NH DAILY PRN PRN Reason: Constipation Stop: 03/27/25 14:53 Cyclobenzaprine HCl (Cyclobenzaprine Hcl 5 Mg Tab) 5 mg PO TID PRN PRN Reason: muscle spasms Stop: 04/02/25 09:29 Last Admin: 03/06/25 00:07 Dose: 5 mg Dextrose (Dextrose 50% 50 Ml Syringe) 25 - 50 ml IV UD PRN; Protocol PRN Reason: Hypoglycemia Protocol Stop: 04/04/25 10:53 Diphenhydramine HCl (Diphenhydramine Capsule 25 Mg Cap) 25 mg PO Q6H PRN PRN Reason: Allergic Rhinitis/Insomnia Stop: 03/27/25 14:53 Last Admin: 02/27/25 20:24 Dose: 25 mg Famotidine (Famotidine 20 Mg Tab) 20 mg PO Q12H PRN PRN Reason: Dyspepsia Stop: 03/27/25 14:53 Last Admin: 03/06/25 08:18 Dose: 20 mg Glucagon (Glucagon For Inj 1 Mg Vial) 1 mg SQ UD PRN; Protocol PRN Reason: Hypoglycemia Protocol Stop: 04/04/25 10:53 Glucose (Glucose 40% Gel 15 Gm Tube) 15 - 30 gm PO UD PRN; Protocol PRN Reason: Hypoglycemia Protocol Stop: 04/04/25 10:53 Glucose (Glucose 10 Tab/Tube) 4 - 8 tab PO UD PRN; Protocol PRN Reason: Hypoglycemia Protocol Stop: 04/04/25 10:53 Hydrochlorothiazide (Hydrochlorothiazide 25 Mg Tab) 25 mg PO QAM [facility] Stop: 03/30/25 10:54 Last Admin: 03/05/25 08:04 Dose: 25 mg Hydroxyzine HCl (Hydroxyzine Hcl 25 Mg Tab) 25 mg PO Q8H PRN PRN Reason: Anxiety Stop: 03/27/25 14:53 Last Admin: 02/27/25 04:30 Dose: 25 mg Promethazine HCl (Phenergan) 12.5 mg in 50.5 mls @ 202 mls/hr IV Q6H PRN PRN Reason: Nausea And Vomiting Stop: 03/27/25 14:53 Dexamethasone 8 mg/ Syringe 2 mls @ 1 mls/min IV Q8 [facility] Stop: 04/02/25 13:59 Last Admin: 03/06/25 05:08 Dose: 1 mls/min Influenza Virus Vaccine Quadrival (Do Not Administer Flu Vaccine) 1 each N/A PRN PRN PRN Reason: Notification Stop: 03/27/25 14:53 Ketorolac Tromethamine (Ketorolac Tromethamine 15 Mg/Ml Vial) 15 mg IV Q6H PRN PRN Reason: Pain Stop: 03/07/25 15:59 Last Admin: 03/06/25 05:07 Dose: 15 mg Lidocaine (Lidocaine 5% 1 Patch) 1 patch TD [facility] Stop: 04/02/25 09:59 Last Admin: 03/06/25 08:19 Dose: 1 patch Magnesium Hydroxide (Magnesium Hydroxide Susp 30 Ml Udc) 30 ml PO Q24H PRN PRN Reason: Constipation Stop: 03/27/25 14:53 Magnesium Oxide (Magnesium Oxide 400 Mg Tab) 400 mg PO DAILY [facility] Stop: 03/28/25 08:59 Last Admin: 03/06/25 08:19 Dose: 400 mg Metoclopramide HCl (Metoclopramide Hcl Inj 5 Mg/Ml 2 Ml Vial) 10 mg IV Q6H PRN PRN Reason: Nausea &/or Vomiting Stop: 03/27/25 14:53 Miscellaneous (Remove Lidoderm Patch) 1 each N/A DAILY@2100 [facility] Stop: 04/02/25 20:59 Last Admin: 03/05/25 22:14 Dose: 1 each Miscellaneous (Carbohydrates For Hypoglycemia ) 15 - 30 gm PO UD PRN PRN Reason: Hypoglycemia Protocol Stop: 04/04/25 10:53 Multivitamins (Multivitamin Tab) 1 tab PO DAILY [facility] Stop: 03/28/25 08:59 Last Admin: 03/06/25 08:19 Dose: 1 tab Naloxone HCl (Naloxone Hcl 0.4 Mg/1 Ml Vial/Carp) 0.1 mg IV Q5M PRN PRN Reason: Oversedation/Resp depression Stop: 03/27/25 14:53 Ondansetron HCl (Ondansetron Inj 2 Mg/Ml 2 Ml Vial) 4 mg IV Q6H PRN PRN Reason: Nausea &/or Vomiting Stop: 03/27/25 14:53 Ondansetron HCl (Ondansetron 4 Mg Od Tab) 4 mg PO Q6H PRN PRN Reason: Nausea Stop: 03/27/25 14:53 Last Admin: 02/26/25 18:26 Dose: 4 mg Oxycodone HCl (Oxycodone Hcl Ir 5 Mg Tab (Immediate Release)) 5 - 10 mg PO Q4H PRN PRN Reason: Pain & Pre PT Stop: 03/11/25 14:53 Last Admin: 03/06/25 08:18 Dose: 10 mg Pantoprazole Sodium (Pantoprazole 40 Mg Tab) 40 mg PO DAILYBL [facility] Stop: 03/30/25 10:29 Last Admin: 03/06/25 08:19 Dose: 40 mg Pneumococcal Polyvalent Vaccine (Do Not Administer Pneumococcal Vaccine) 1 each N/A PRN PRN PRN Reason: Notification Stop: 03/27/25 14:53 Senna/Docusate Sodium (Docusate Sodium/Senna 50/8.6mg Tab) 2 tab PO HS [facility] Stop: 03/27/25 20:59 Last Admin: 03/05/25 20:00 Dose: 2 tab Sodium Biphosphate/Sodium Phosphate (Sod Phosphate/Sod Biphosphate Enema 132 Ml Btl) 132 ml NH ONE PRN PRN Reason: Constipation Stop: 03/27/25 14:53 Spironolactone (Spironolactone 25 Mg Tab) 25 mg PO QAM PATRICK Stop: 03/31/25 08:59 Last Admin: 03/06/25 08:18 Dose: 25 mg Vitamin D (Cholecalciferol 25 Mcg (1000 Units) Tab) 25 mcg PO DAILY PATRICK Stop: 03/28/25 08:59 Last Admin: 03/06/25 08:19 Dose: 25 mcg Zolpidem Tartrate (Zolpidem Tartrate 5 Mg Tab) 10 mg PO HS PRN PRN Reason: Sleep Stop: 03/27/25 14:59 Last Admin: 03/06/25 01:05 Dose: 10 mg
[2025-03-06] MEDS: INSULIN ASPART PER UNIT CHARGE SC SCH (12:04)
[2025-03-06] MEDS: dexAMETHasone 4 MG in SYRINGE 0 ML IV SCH (13:09)
[2025-03-06 23:51] LABS: Base Excess VBG 4.3 mEq/L; HCO3 VBG 30 mmol/L; Oxygen Saturation VBG < 60.0 %; PCO2 VBG 47 mmHg (38-50); PO2 VBG 21 mmHg; pH VBG 7.41 (7.36-7.41)
--- NOTE | 2025-03-07 01:27 | CT Scan Report ---
EXAM: CT head/brain wo con CLINICAL HISTORY: AMS TECHNIQUE: Axial non-contrast CT scan of the brain was performed from the skull base to the high parietal region. One of the following dose reduction techniques were utilized for this exam: Automated exposure control, adjustment of the mA and/or kV according to patient size, use of iterative reconstruction. COMPARISON: No previous studies available for comparison FINDINGS: Brain Parenchyma: Age-related changes manifested as dilated sulci and subarachnoid spaces with mild dilatation of the lateral ventricles. Accenutaed white matter hypodensity with patchy hypodense areas at the subcortical and deep white matter regions, features reflecting chronic white matter microangiopathy. Tiny old lacunar insult at the right thalamus. No evidence of acute infarct, hemorrhage, or mass effect on CT basis. Atherosclerotic calcifications are seen at the intracranial vessels. Subarachnoid Spaces: No evidence of subarachnoid hemorrhage or extra-axial fluid collections. Cerebellum and Brainstem: No masses, lesions, or areas of abnormal density. Orbits: Normal appearance of the globes, optic nerves, and extraocular muscles. No evidence of orbital masses or abnormal density. Sinuses: Clear paranasal sinuses. No evidence of sinusitis or mucosal thickening. The frontal sinuses are hypoplastic. Mastoid Air Cells: Clear mastoid air cells. No evidence of mastoiditis. Skull: Normal skull morphology. IMPRESSION: - Age-related changes manifested as dilated sulci and subarachnoid spaces with mild dilatation of the lateral ventricles. - Accenutaed white matter hypodensity with patchy hypodense areas at the subcortical and deep white matter regions, features reflecting chronic white matter microangiopathy. - Tiny old lacunar insult at the right thalamus. - No evidence of acute infarct, hemorrhage, or mass effect on CT basis. - However, recent infarcts may not appear on CT; if clinically suspected, further MRI of the brain is recommended. Electronically signed by Neftali Lundberg 03-07-2025 01:27 AM
[2025-03-07] MEDS: LACTATED RINGER'S 1,000 ML IV SCH (06:47)
[2025-03-07 07:03] LABS: Hematocrit (blood only) 30.7 % (37.0-47.0); Hemoglobin 10.1 g/dl (12.0-16.0); Immature Granulocytes # (auto) 0.68 K/uL (0.01-0.20); Immature Granulocytes % (auto) 3.1 %; Mean Corpuscular Hemoglobin 26.7 pg (25.0-34.0); Mean Corpuscular Volume 81.2 fL (80.0-100.0); Platelet Count 560 K/uL (130-400); RDW Standard Deviation 42.5 fL (36.4-46.3); Red Blood Count 3.78 M/uL (4.20-5.40); White Blood Count 22.05 K/ul (4.8-10.8)
[2025-03-07] MEDS ORDERED: ROCURONIUM BROMIDE 10 MG/ML 5 ML VIAL IV ONE (07:03)
[2025-03-07] MEDS ORDERED: PROPOFOL IV EMULSION 10 MG/ML 20 ML VIAL IV ONE (07:03)
[2025-03-07] MEDS ORDERED: DEXAMETHASONE SOD INJ 4 MG/ML VIAL ONE (07:03)
[2025-03-07] MEDS ORDERED: LIDOCAINE 2% 2 ML VIAL/AMP(20MG/ML) INFIL ONE (07:03)
[2025-03-07] MEDS ORDERED: SODIUM CHLORIDE 0.9% PF INJ 10 ML VIAL ONE ×3 (07:03→08:18)
[2025-03-07] MEDS ORDERED: MIDAZOLAM HCL 1 MG/ML 2ML VIAL ONE (07:03)
[2025-03-07] MEDS ORDERED: ONDANSETRON INJ 2 MG/ML 2 ML VIAL ONE ×2 (07:03→08:38)
[2025-03-07] MEDS ORDERED: LARYING-O-JET KIT (LTA) ONE (07:03)
[2025-03-07] MEDS ORDERED: HYDROmorphone INJ 2 MG/ML SYR/VIAL ONE (07:04)
[2025-03-07] MEDS ORDERED: DexMEDEtomidine HCL IV 100 MCG/ML VIAL IV ONE (07:04)
[2025-03-07] MEDS ORDERED: ONDANSETRON INJ 2 MG/ML 2 ML VIAL IV PRN (07:14)
[2025-03-07] MEDS ORDERED: ATROPINE SULFATE 0.1 MG/ML 10ML SYR IV PRN (07:14)
[2025-03-07] MEDS ORDERED: HYDROmorphone INJ 1 MG/ML SYRINGE IV PRN (07:15)
[2025-03-07 07:20] LABS: Anion Gap 9.0 (3-11); Blood Urea Nitrogen 29.0 mg/dl (6-23); Calcium 8.7 mg/dl (8.6-10.3); Carbon Dioxide 26.0 mmol/L (21-32); Chloride 97.0 mmol/L (98-107); Creatinine Clr Calc Pharmacy 78.8 ml/min; Glucose 170.0 mg/dl (70-99(Fasting)); Magnesium 2.3 mg/dl (1.7-2.4); Potassium 4.3 mmol/L (3.5-5.1); Sodium 132.0 mmol/L (136-145)
--- NOTE | 2025-03-07 07:39 | Anesthesiology Consultation ---
Date of Service March 07, 2025 Assessment & Plan Chart Review Chart Review: Acceptable Risk for Surgery and Patient NOT seen in Pre Admission Testing Consults Requested none ASA ASA3 Proposed Anesthesia Anesthesia Type: General Risk / Benefits Reviewed With: PT / POA / Parent / Guardian, Accepts Plan and Informed Consent Obtained History Surgery Operation Date: 02/25/25 10:05 Proposed Procedures p L2-L5 Decompression and Fusion, Possible L1-L2 Decompression and Fusion, Spinal Cord Monitoring - Adriel Nova DO Operation Date: 03/06/25 13:55 Proposed Procedures p Incision and Drainage Lumbar Spine - Adriel Nova DO Operation Date: 03/07/25 07:45 Proposed Procedures p Incision and Drainage Lumbar Spine, L4-L5 Revision of Fusion, Spinal Cord Monitoring - Adriel Nova DO Height/Weight Height: 5 ft 4 in Weight: 96.4 kg Allergies Allergy/AdvReac Type Severity Reaction Status Date / Time ampicillin Allergy Severe Rash Verified 02/25/25 06:53 terbinafine Allergy Severe Diarrhea Verified 02/25/25 06:53 Medications Home Medications Medication Instructions Recorded Confirmed Last Taken amlodipine 5 mg tablet 5 mg PO BID 01/31/25 02/25/25 02/25/25 04:30 ascorbic acid (vitamin C) 500 mg 500 mg PO DAILY 01/31/25 02/25/25 02/24/25 09:00 tablet (Vitamin C) cholecalciferol (vitamin D3) 25 25 mcg PO DAILY 01/31/25 02/25/25 02/24/25 09:00 mcg (1,000 unit) capsule (Vitamin D3) etanercept 50 mg/mL (1 mL) 50 mg subcut WK 01/31/25 02/25/25 02/24/25 09:00 subcutaneous cartridge (Enbrel Mini) hydrochlorothiazide 25 mg tablet 25 mg PO QAM 01/31/25 02/25/25 02/24/25 09:00 leflunomide 10 mg tablet 10 mg PO QAM 01/31/25 02/25/25 02/17/25 09:00 magnesium 200 mg tablet 200 mg PO DAILY 01/31/25 02/25/25 02/23/25 09:00 multivitamin 1 tab PO DAILY 01/31/25 02/25/25 02/23/25 09:00 omega-3 fatty acids 1,000 mg PO DAILY 01/31/25 02/25/25 02/17/25 09:00 potassium chloride 10 mEq 20 meq PO QAM 01/31/25 02/25/25 02/24/25 09:00 tablet,extended release (Klor-Con) spironolactone 25 mg tablet 25 mg PO QAM 01/31/25 02/25/25 02/24/25 09:00 zolpidem 10 mg tablet 10 mg PO HS PRN prn 01/31/25 02/25/25 02/24/25 20:00 oxycodone 5 mg tablet 5 mg PO Q6H PRN pain #30 tabs 02/26/25 Unknown tramadol 50 mg tablet 50 mg PO Q6H PRN pain, moderate 02/26/25 Unknown #30 tabs aspirin 81 mg tablet 81 mg PO DAILY 02/28/25 02/28/25 Unknown Active Medications Generic Name Dose Route Start Last Admin Trade Name Freq PRN Reason Stop Dose Admin Acetaminophen 1,000 mg 03/03/25 09:00 03/07/25 01:49 Acetaminophen 500 Mg Tab PO 04/02/25 08:59 1,000 mg Q8H PATRICK Administration Amlodipine Besylate 5 mg 02/25/25 21:00 03/07/25 06:23 Amlodipine Besylate 5 Mg Tab PO 03/27/25 20:59 5 mg BID PATRICK Administration Ascorbic Acid 500 mg 02/26/25 09:00 03/06/25 08:19 Ascorbic Acid 500 Mg Tab PO 03/28/25 08:59 500 mg DAILY PATRICK Administration Cyclobenzaprine HCl 5 mg 03/04/25 09:53 03/06/25 14:26 Cyclobenzaprine Hcl 5 Mg Tab PO 04/02/25 09:29 5 mg TID PRN Administration muscle spasms Diphenhydramine HCl 25 mg 02/25/25 14:54 02/27/25 20:24 Diphenhydramine Capsule 25 Mg Cap PO 03/27/25 14:53 25 mg Q6H PRN Administration Allergic Rhinitis/Insomnia Famotidine 20 mg 02/25/25 14:54 03/06/25 08:18 Famotidine 20 Mg Tab PO 03/27/25 14:53 20 mg Q12H PRN Administration Dyspepsia Hydrochlorothiazide 25 mg 02/28/25 10:55 03/05/25 08:04 Hydrochlorothiazide 25 Mg Tab PO 03/30/25 10:54 25 mg QAM PATRICK Administration Hydroxyzine HCl 25 mg 02/25/25 14:54 02/27/25 04:30 Hydroxyzine Hcl 25 Mg Tab PO 03/27/25 14:53 25 mg Q8H PRN Administration Anxiety Dexamethasone 4 mg/ Syringe 1 mls @ 1 mls/min 03/06/25 14:00 03/07/25 05:56 IV 04/05/25 13:59 1 mls/min Q8 PATRICK Administration Lactated Ringer's 1,000 mls @ 15 mls/hr 03/07/25 06:45 03/07/25 06:47 Lr IV 03/10/25 06:44 15 mls/hr .Q24H PATRICK Administration Insulin Aspart 0 units 03/06/25 11:30 03/06/25 20:54 Insulin Aspart Per Unit Charge SC 04/05/25 11:29 3 units ACHS PATRICK Administration Ketorolac Tromethamine 15 mg 03/02/25 16:00 03/07/25 02:42 Ketorolac Tromethamine 15 Mg/Ml Vial IV 03/07/25 15:59 15 mg Q6H PRN Administration Pain Lidocaine 1 patch 03/03/25 10:00 03/06/25 08:19 Lidocaine 5% 1 Patch TD 04/02/25 09:59 1 patch QAM PATRICK Administration Magnesium Oxide 400 mg 02/26/25 09:00 03/06/25 08:19 Magnesium Oxide 400 Mg Tab PO 03/28/25 08:59 400 mg DAILY PATRICK Administration Miscellaneous 1 each 03/03/25 21:00 03/06/25 20:54 Remove Lidoderm Patch N/A 04/02/25 20:59 1 each DAILY@2100 PATRICK Administration Multivitamins 1 tab 02/26/25 09:00 03/06/25 08:19 Multivitamin Tab PO 03/28/25 08:59 1 tab DAILY PATRICK Administration Ondansetron HCl 4 mg 02/25/25 14:54 02/26/25 18:26 Ondansetron 4 Mg Od Tab PO 03/27/25 14:53 4 mg Q6H PRN Administration Nausea Oxycodone HCl 5 - 10 mg 02/25/25 14:54 03/06/25 20:52 Oxycodone Hcl Ir 5 Mg Tab (Immediate Release) PO 03/11/25 14:53 10 mg Q4H PRN Administration Pain & Pre PT Pantoprazole Sodium 40 mg 02/28/25 10:30 03/06/25 08:19 Pantoprazole 40 Mg Tab PO 03/30/25 10:29 40 mg DAILYBL PATRICK Administration Senna/Docusate Sodium 2 tab 02/25/25 21:00 03/06/25 20:51 Docusate Sodium/Senna 50/8.6mg Tab PO 03/27/25 20:59 2 tab HS PATRICK Administration Spironolactone 25 mg 03/01/25 09:00 03/06/25 08:18 Spironolactone 25 Mg Tab PO 03/31/25 08:59 25 mg QAM PATRICK Administration Vitamin D 25 mcg 02/26/25 09:00 03/06/25 08:19 Cholecalciferol 25 Mcg (1000 Units) Tab PO 03/28/25 08:59 25 mcg DAILY PATRICK Administration Zolpidem Tartrate 10 mg 02/25/25 15:00 03/06/25 20:51 Zolpidem Tartrate 5 Mg Tab PO 03/27/25 14:59 10 mg HS PRN Administration Sleep NPO Date Last Intake of Fluids: 03/07/25 Time Last Intake of Fluids: 06:30 Last Intake of Fluids Comment: Sip with med on unit Date Last Intake of Solids: 03/06/25 Time Last Intake of Solids: 19:00 Past Medical History Medical History History of UTI Rheumatoid arthritis Follows with Dr Ho/RAMANA Sheffield History of DVT (deep vein thrombosis) (2019) BL LE, was on AC x4 months (then discontinued) No issues since Hypertension Exercise / Class Metabolic Activity III < 4 Walking/Shop/Light housework Past Surgical History Surgical History History of colonoscopy History of neuroma removal- right foot History of wisdom tooth extraction History of bunionectomy of both great toes History of tonsillectomy History of cataract surgery R/L History of cardiac cath (~2019) no stents Past Anesthesia History No Hx of Anesthesia Complications and No Family Hx of Anesthesia Complications History of PONV No Hx of PONV and No Hx of Motion Sickness Social History Smoking Status: Never smoker Do You Dip or Chew Tobacco: No Hx Alcohol Use: Yes alcohol intake frequency: holidays/special occasions only Hx Substance Use: No substance use type: does not use Review of Systems ROS Unobtainable: All systems reviewed & are unremarkable except as noted in HPI & below Physical Exam Vital Signs Last Vital Signs Temp 36.7 C 03/07/25 06:33 Pulse 103 H 03/07/25 06:33 Resp 16 03/07/25 06:33 BP 170/81 H 03/07/25 06:33 Pulse Ox 95 03/07/25 06:33 O2 Del Method Room Air 03/07/25 06:33 O2 Flow Rate 2 03/03/25 08:00 FiO2 2 02/25/25 19:10 ENMT Mouth: no TMJ abnormality Thyromental Distance: > or= 3.5 Finger Breadths Mallampati Class: II Neck normal visual inspection and trachea midline; neck extension not limited Respiratory normal respiratory effort Auscultation: lungs clear to auscultation bilaterally Cardiovascular Rate/Rhythm: regular rate and regular rhythm Heart Sounds: no murmur Musculoskeletal Spine: normal cervical ROM Extremities: full ROM of extremities Neurologic moves all extremities Psychiatric Orientation: alert and oriented x 3 Testing Laboratory Results 03/07/25 06:45 03/07/25 06:45 Hemoglobin A1c 6.3 % (4.5-5.6) H 03/06/25 05:24 Urine Color Yellow 03/01/25 13:50 Urine Appearance Clear (Clear) 03/01/25 13:50 Urine pH 5.5 (4.5-7.5) 03/01/25 13:50 Ur Specific [place] 1.023 (1.000-1.030) 03/01/25 13:50 Urine Protein 1+ (Negative) H 03/01/25 13:50 Urine Glucose (UA) Negative (Negative) 03/01/25 13:50 Urine Ketones Trace (Negative) H 03/01/25 13:50 Urine Nitrite Negative (Negative) 03/01/25 13:50 Ur Leukocyte Esterase Negative (Negative) 03/01/25 13:50 Urine WBC (Auto) 0-5 /hpf (0-5) 03/01/25 13:50 Urine RBC (Auto) 0-2 /hpf (0-2) 03/01/25 13:50 U Hyaline Cast (Auto) 6- /lpf (0-2) H 03/01/25 13:50 U Epithel Cells (Auto) 11-20 /hpf (0-2) H 03/01/25 13:50 Urine Bacteria (Auto) 1+ (None Seen) H 03/01/25 13:50 Blood Type O Positive 03/06/25 14:45 Antibody Screen NEGATIVE 03/06/25 14:45 03/07/25 03/06/25 03/06/25 05:54 23:25 20:20 POC Glucose 179 H 156 H 262 H Electrocardiogram Date: 02/27/25 Sinus tachycardia with occasional Premature ventricular complexes Cannot rule out Anterior infarct , age undetermined Abnormal ECG When compared with ECG of 11-Feb-2025 11:55, Minimal criteria for Anterior infarct are now Present Confirmed by Daniel Quintanilla ([id number]) on 03/01/2025 11:08:33 PM
--- NOTE | 2025-03-07 07:39 | History & Physical Bridge Note ---
Date of Service March 07, 2025 History & Physical Bridge Note I have examined the patient, reviewed the History & Physical and in the interval since the performance of the History & Physical I have noted the following changes of clinical significance: no changes noted Revision fusion L4-L5
--- NOTE | 2025-03-07 07:57 | Hospitalist Progress Note ---
Date of Service March 07, 2025 Assessment & Plan (1) Acute blood loss anemia: (2) Other spondylosis with radiculopathy, lumbar region: (3) Tachycardia: (4) Leukocytosis: (5) Hyponatremia: (6) Hyperkalemia: (7) Hypertension: (8) Hyperlipidemia: (9) Rheumatoid arthritis: Plan This is a 69 year old female with PMH significant for hypertension, hyperlipidemia, rheumatoid arthritis, palpitations, history of bilateral pulmonary emboli, and lumbar spondylosis with radiculopathy who underwent L1-L5 decompression and fusion on 02/25/[address] Nova. We have been consulted for post operative medical management. Other spondylosis with radiculopathy, lumbar region -Underwent L1-L5 decompression and fusion by Dr. Nova on February 25 -Was still having significant pain despite regimen of IV steroids, cyclobenzaprine for spasms, scheduled tylenol, daily lidocaine patch, encouraged PRN toradol and oxycodone -Post-op lumbar Spine MRI 03/04 due to ongoing symptoms - showed a probable postop seroma -Patient fell due overnight and 03/05 CT lumbar spine revealed end plate fracture L4 and pedicle fx of L5 on the right -POD #0 s/p removal of posterior segmental instrumentation L2 L4-L5, revision decompression with bilateral foraminotomies L4-L5, kyphoplasty L2 L4 and L5 vertebral bodies, revision fusion L4-L5 L5--S1.. and Stimulan beads impregnated with vancomycin and gentamicin throughout the incision by Dr. Nova -Monitor H&H (hgb 10.1, EBL 100ml), continue incentive spirometry, PT/OT evals Tachycardia Likely due to pain/anemia, patient asymptomatic HR 90-115s Preop EKG on 02/11/2025 with sinus tachycardia at rate of 105bpm Continue monitoring Leukocytosis Ranging from 15-19k Likely due to steroids, no s/sx of infection esr/crp elevated which in nonspecific but likely in setting of recent surgery, no fever Chronic Hyponatremia Na 130-132 Patient notes poor PO intake Hold HCTZ and monitor sodium levels Pre Diabetes Steroid induced hyperglycemia A1C 6.3 BSG elevated likely in setting of IV steroids, 24hr review shows consistent elevation Aded novolog coverage for now and reduce dexamethasone to 4mg Hypertension Continue home amlodipine, spironolactone hold HCTZ for low sodium, resume when able Rheumatoid arthritis Hold leflunomide Care coordinated with Dr. Gibbons. Thank you for this consultation. We will follow the patient with you during their hospital stay. You can reach a member of the [facility] Hospitalist Team 18/04 via [employer]. I spent a total of 50 minutes coordinating, documenting, and providing care for this patient excluding time spent in the performance of separately billed services or time spent by another provider/QHP. Admission and Anticipated Discharge Date Admission Date: February 25, 2025 Subjective Seen in [facility] following OR from spinal surgery. Comfortable resting, no acute complaints. No F/C, lightheadedness, CP, SOB, N/V, abd pain or dysuria. Review of Systems Review of Systems: At least ten systems reviewed and negative except as noted in the HPI. Physical Exam Physical Exam: Gen: WD/WN, NAD, resting in bed, A&Ox3 HEENT: Normocephalic, atraumatic Lung: Clear to Auscultation bilaterally Heart: Regular rate, regular rhythm Abdomen: Soft, NT, ND +BS x 4 Extremities: +Spinal dressing c/d/i, no edema Skin: Warm, no rash Results & Data Results & Data Vital Signs (Past 12 Hours) Vital Signs Temp Pulse Pulse Resp BP BP Pulse Ox 03/07/25 06:33 36.7 C 103 H 16 170/81 H 95 03/06/25 23:21 36.6 C 108 H 16 166/92 H 94 O2 Del Method 03/07/25 06:33 Room Air 03/06/25 23:21 Room Air Laboratory Results Short CBC 03/07/25 Range/Units 06:45 WBC 22.05 H (4.8-10.8) K/ul Hgb 10.1 L (12.0-16.0) g/dl Hct 30.7 L (37.0-47.0) % Plt Count 560 H (130-400) K/uL BMP 03/07/25 06:45 Sodium 132 L Potassium 4.3 Chloride 97 L Carbon Dioxide 26 BUN 29 H Creatinine 0.77 Glucose 170 H Calcium 8.7 Diagnostic Findings Lumbar Spine X-Ray 02/25/25 06:00 FL lumbar spine 2-3V CLINICAL HISTORY: L1-L5 Decompression/fusion COMPARISON STUDY: None FLUOROSCOPY TIME: 33 seconds FLUOROSCOPY IMAGES: 3 EXPOSURE DOSE: 40 mGy FINDINGS: Fluoroscopy was provided for lumbar metallic fusion. IMPRESSION: Intraoperative fluoroscopy. ACT 112: Negative or not required by law. Electronically signed by: Sina Weber M.D. 02/25/2025 2:21 PM Lumbar Spine MRI 03/04/25 11:06 EXAM: MR lumbar spine wo con CLINICAL HISTORY: Leg weakness. Numbness bilat feet tingling surgery L1-L5 decompression and fusion 02/25/25. TECHNIQUE: Different pulse sequences were performed in different planes for the lumbar spine without contrast. Images were sent through PACs for diagnostic interpretation. COMPARISON: Fluoroscopy dated 02/25/2025. FINDINGS: Status post metallic hardware fixation by transpedicular screws/rakesh device at the L2, L3 L4, And L5 vertebrae. Metallic interbody fusion devices. The metallic hardware induces inevitable Blooming (ferromagnetic) artifacts, degrading the image quality. Partial Obscuration of the intervertebral discs by the metallic hardware.Spinolaminectomies of L2, L3, L4 and L5 neural arches opposite the corresponding L2-L3, L3-L4 and L4-L5 intervertebral discs. Postoperative changes are seen at the paraspinal muscles and overlying subcutaneous fat. There is edema of the L1-L2, L2-L3 and L4-L5 intervertebral discs. A large Collection of fluid signals is seen dominantly at the right aspect of the subcutaneous fat, extending from the level opposite the L1 vertebra down to the level opposite the L5 vertebra. A track-like extension is seen at the paraspinal muscles and the midline opposite the L4-L5 intervertebral disc . This Fluid collection measures 15 x 5.1 x 3.1 cm in the largest craniocaudal, [id number] and anteroposterior dimensions. The etiological probabilities include Postoperative seroma, CSF collection, secondary to dural tear vs. Inflammatory collection with abscess formation. Clinical, laboratory correlation and further workup are recommended as appropriate. Dextroconvex lumbar scoliosis.The Chavez Lippmann's angle measures 10.8°. The scanned intervertebral discs show variable degrees of degeneration, denoted by low signal intensity on T2 WI with a relative reduction in height. Multiple Schmorl's nodes are seen at the lower thoracic and upper lumbar vertebral end plates. The marrow signals of the scanned osseous structures are homogeneous. Maintained vertebral heights with intact vertebral bodies and neural arches. Level by Level analysis: T12-L1: There is no focal disc pathology, central canal stenosis, or neural foraminal stenosis. L1-L2: There is A 3.1 mm annular bulge indenting the thecal sac, compromising the subarticular recesses. There is mild central canal stenosis and mild bilateral neural foraminal stenosis with impingement of the emerging nerve roots. Buckled ligamenta flava and arthropathic facet joints augment effects. L2-L3: Metallic hardware is seen in situ. The residual disc compromises the subarticular recesses and neural foramina with impingement of the emerging nerve roots. L3-L4: There is Adequate surgical decompression. L4-L5: Metallic hardware is seen in situ. A 3.1 mm residual disc Annular bulge indenting the thecal sac and compromises the subarticular recesses and neural foramina with impingement of the emerging nerve roots.Partial Obscuration of the right aspect of the spinal canal by the metallic hardware. CT correlation is recommended to justify or deny possible metallic hardware failure. L5-S1: There is no focal disc pathology, central canal stenosis, or neural foraminal stenosis. Hypertrophic arthropathy of the facet joints is seen more on the right side, with consequent compromise of the neural foramina. More on the right side. The lower dorsal spinal cord, conus medullaris, and cauda equina nerve roots are unremarkable. Paravertebral soft tissue is unremarkable. No developmental canal stenosis. IMPRESSION: 1. Status post metallic hardware fixation by transpedicular screws/rakesh device at L2, L3 L4, And L5 vertebrae. Metallic interbody fusion devices. The metallic hardware induces inevitable Blooming (ferromagnetic) artifacts, degrading the image quality. Partial Obscuration of the intervertebral discs by the metallic hardware. Spinolaminectomies of L2, L3, L4 and L5 neural arches opposite the corresponding L2-L3, L3-L4 and L4-L5 intervertebral discs. Postoperative changes are seen at the paraspinal muscles and overlying subcutaneous fat. There is edema of the L1-L2, L2-L3 and L4-L5 intervertebral discs. A large Collection of fluid signals is seen dominantly at the right aspect of the subcutaneous fat, extending from the level opposite the L1 vertebra down to the level opposite the L5 vertebra. A track-like extension is seen at the paraspinal muscles and the midline opposite the L4-L5 intervertebral disc. This Fluid collection measures 15 x 5.1 x 3.1 cm in the largest craniocaudal, [id number] and anteroposterior dimensions. The etiological probabilities include Postoperative seroma, CSF collection, secondary to dural tear vs. Inflammatory collection with abscess formation. Clinical, laboratory correlation and further workup are recommended as appropriate. 2. Dextroconvex lumbar scoliosis.The Chavez Lippmann's angle measures 10.8°. 3. Multiple Schmorl's nodes. 4. L1-L2: There is A 3.1 mm annular bulge. 5. L2-L3: Metallic hardware is seen in situ. The residual disc compromises the subarticular recesses and neural foramina. 6. L3-L4: There is Adequate surgical decompression. 7. L4-L5: Metallic hardware is seen in situ. A 3.1 mm residual disc Annular bulge.Partial Obscuration of the right aspect of the spinal canal by the metallic hardware. CT correlation is recommended to justify or deny possible metallic hardware failure. 8. L5-S1: Hypertrophic arthropathy of the facet joints is seen more on the right side, with consequent compromise of the neural foramina. More on the right side. 9. Multilevel lumbar disc pathologies and postoperative status with effects exerted upon the central spinal canal, subarticular recesses, and neural foramina. Postoperative changes, buckled ligamenta flava, and arthropathic facet joints augment effects. Detailed clinical, laboratory and CT correlation is recommended. 10. The comparison matches the radiographic findings. Electronically signed by Neftali Lundberg 03-04-2025 7:[address] 03/05/25 08:13 CT OF THE LUMBAR SPINE CLINICAL HISTORY: Postoperative evaluation. COMPARISON STUDY: Lumbar spine fluoroscopic images February 25, 2025. Lumbar spine MRI March 04, 2025. TECHNIQUE: Helical axial images of the lumbar spine were obtained. Sagittal and coronal reconstructions were viewed. Automated exposure control was utilized for the study. A dose lowering technique was utilized adhering to the principles of ALARA. FINDINGS: For purposes of numbering on this exam, the L5-S1 disc space is assigned to axial image 341 of [id number]. There are postoperative findings consistent with L1-L5 posterior decompression at L2-L5 pedicle screw fusion with discectomy and interbody spacer placement at the L2-L3, L3-L4 and L4-L5 levels. Lucency adjacent to the bilateral L5 pedicle screws is noted. A change in orientation of the L4-L5 spacers with superior migration is noted when compared to fluoroscopic images February 25, 2025. Superior displacement of the left-sided spacer is greater. There is associated erosion along the inferior endplate of L4 and fragmentation of the posterior cortex. A suspected associated bone fragment posterior to the L4 vertebral body measures 1.1 cm. Evaluation is difficult to image due to artifact from the surgical hardware. There is an acute appearing L5 vertebral body fracture with 30% loss of vertebral body height. No additional fractures are identified. A subcutaneous operative bed fluid collection measures 13.7 x 4.5 x 3 cm, shown on MRI of March 14, 2025. Evaluation of the central canal is nondiagnostic given CT technique and artifact from the hardware. IMPRESSION: 1. Status post L1-L5 posterior decompression and L2-L5 pedicle screw fusion with interbody spacer placement at the L2-L3, L3-L4 and L4-L5 levels. 2. Change in orientation with superior migration of the L4-L5 spacers, left greater than right. Associated erosion of the inferior endplate of L4 with apparent fragmentation of the posterior cortex of L4 with associated bone fragment. Evaluation is suboptimal given streak artifact from the hardware. An underlying infectious process cannot be completely excluded. 3. L5 vertebral body fracture with 30% loss of vertebral body height. 4. Lucency adjacent to the bilateral L5 pedicle screws. This may represent loosening. An infectious process could appear similar. 5. Subcutaneous operative bed fluid collection which measures 13.7 x 4.5 x 3 cm. 6. Nondiagnostic evaluation of the central canal and neural foramen given CT technique and artifact from the surgical hardware. ACT 112: Negative or not required by law. Electronically signed by: John Sanchez M.D. 03/05/2025 10:[address] 03/06/25 23:35 EXAM: CT head/brain wo con CLINICAL HISTORY: AMS TECHNIQUE: Axial non-contrast CT scan of the brain was performed from the skull base to the high parietal region. One of the following dose reduction techniques were utilized for this exam: Automated exposure control, adjustment of the mA and/or kV according to patient size, use of iterative reconstruction. COMPARISON: No previous studies available for comparison FINDINGS: Brain Parenchyma: Age-related changes manifested as dilated sulci and subarachnoid spaces with mild dilatation of the lateral ventricles. Accenutaed white matter hypodensity with patchy hypodense areas at the subcortical and deep white matter regions, features reflecting chronic white matter microangiopathy. Tiny old lacunar insult at the right thalamus. No evidence of acute infarct, hemorrhage, or mass effect on CT basis. Atherosclerotic calcifications are seen at the intracranial vessels. Subarachnoid Spaces: No evidence of subarachnoid hemorrhage or extra-axial fluid collections. Cerebellum and Brainstem: No masses, lesions, or areas of abnormal density. Orbits: Normal appearance of the globes, optic nerves, and extraocular muscles. No evidence of orbital masses or abnormal density. Sinuses: Clear paranasal sinuses. No evidence of sinusitis or mucosal thickening. The frontal sinuses are hypoplastic. Mastoid Air Cells: Clear mastoid air cells. No evidence of mastoiditis. Skull: Normal skull morphology. IMPRESSION: - Age-related changes manifested as dilated sulci and subarachnoid spaces with mild dilatation of the lateral ventricles. - Accenutaed white matter hypodensity with patchy hypodense areas at the subcortical and deep white matter regions, features reflecting chronic white matter microangiopathy. - Tiny old lacunar insult at the right thalamus. - No evidence of acute infarct, hemorrhage, or mass effect on CT basis. - However, recent infarcts may not appear on CT; if clinically suspected, further MRI of the brain is recommended. Electronically signed by Neftali Lundberg 03-07-2025 01:27 AM Lumbar Spine X-Ray 03/07/25 07:45 FL lumbar spine 2-3V CLINICAL HISTORY: L4-L5 REVISION OF FUSION COMPARISON STUDY: 02/25/2025 FLUOROSCOPY TIME: 167 seconds FLUOROSCOPY IMAGES: 5 EXPOSURE DOSE: 177 mGy FINDINGS: Fluoroscopy was provided for lumbar surgery. IMPRESSION: Intraoperative fluoroscopy. ACT 112: Negative or not required by law. Electronically signed by: Sina Weber M.D. 03/07/2025 9:55 AM
[2025-03-07] MEDS ORDERED: KETAMINE HCL 10MG/ML SYR ONE (07:58)
[2025-03-07] MEDS ORDERED: ceFAZolin 330 MG/ML 1 GM VIAL ONE ×2 (08:19)
[2025-03-07] MEDS: BUPIVACAINE/EPINEPHRINE 0.25% 1:200,000 30 ML VIAL ONE (08:19)
[2025-03-07] MEDS: ceFAZolin 330 MG/ML 1 GM VIAL ONE ×2 (08:19→11:18)
[2025-03-07] MEDS ORDERED: SUGAMMADEX SODIUM 200 MG/2 ML VIAL IV ONE (08:38)
[2025-03-07] MEDS: GENTAMICIN SULFATE 40 MG/ML 2 ML VIAL ONE (08:45)
[2025-03-07] MEDS: VANCOMYCIN HCL 1000MG/20ML VIAL ONE (08:46)
[2025-03-07] MEDS: FLOSEAL HEMOSTATIC MATRIX 10ML TOP ONE (09:19)
--- NOTE | 2025-03-07 09:30 | Operative Report ---
Post Operative Report Pre & Post Diagnosis Operation Date: 03/07/25 07:45 Pre-Op Diagnosis: #1 compression fracture L4 and L5. #2 failure of hardware L3-L4-L5. #3 lumbar radiculopathy with neurologic deficit Post-Op Diagnosis: Same I identified the patient and participated in the time-out.: Yes Procedure Operation Date: 03/07/25 07:45 Actual Procedures #1 removal of posterior segmental instrumentation L2 L4-L5. #2 revision decompression with bilateral foraminotomies L4-L5. #3 kyphoplasty L2 L4 and L5 vertebral bodies. #4 revision fusion L4-L5 L5-S1. #5 placement of posterior segmental and station L2-S1 including a cross-link. #6 placement infuse collagen sponge, with Koros in the posterior gutters. #7 application of versa wrap over the exposed dura. #8 placement of Stimulan beads impregnated with vancomycin and gentamicin throughout the incision. Surgeon Adriel Nova, DO Plant Maintenance Supervisor Coni Hernandez Estimated Blood Loss 100 Findings Consistent with Post-Op Diagnosis Specimens Cultures of the fascial layer as well as the epidural space to lumbar spine obtained. Indications This is a 69-year-old female that presents with a marked decline in status after a multilevel lumbar decompression and fusion. She been doing well for several days with steady decline now presenting with neurologic deficit and worsening pain. Imaging confirms compression fractures of L4 and L5 with loosening of instrumentation. Subsequently she is here for urgent revision. Description of Procedure Patient was met with identified informed consent obtained. Patient was then taken to the operative suite underwent intubation placed in a prone position on the Dustin table top the Waqas frame. All bony prominences well-padded eyes inspected to ensure no external pressure placed upon them. This point the lumbar spine was prepped and draped in normal sterile fashion. Sharp dissection with the assistance of Bovie cautery from down to and exposing the fascial layer. Seroma was noted. A culture was taken. I then released the fascia to the left epidural space. Cultures were taken in this level as well. We then irrigated several liters of antibiotic solution throughout the incision. I then remove the end of the pedicle screws and remove the rods. The screws of L2 on the right L4-L5 bilaterally were grossly loose secondary to the fractures. They were entirely removed. I then performed a kyphoplasty of L2 reinserting a screw at this level. I then performed a kyphoplasty of L4 reinserting screws at this level and lastly a kyphoplasty of L5 with reinsertion of screws bilaterally. I filled the interbody space at L4-L5 with remaining cement to fill the void of the collapse migrated interbody cages. The goal was to provide some additional anterior stability at this level. I then exposed the L5-S1 level and ala bilaterally. Pedicle screws were then placed in S1 bilaterally. These [address] I had to remove excess bone in the bilateral foraminal regions L4-5 bilaterally. Fractures had created loosening of bone directly in the foramen bilaterally. They removed in their entirety. Proper sized rakseh was then placed bilaterally and locked in position including cross-link. First wrap placed over the exposed dura. Versa wrap was placed of exposed dura. Antibiotic beads placed in the subfascial and suprafascial layer. 15 round EMILY drain inserted. The incision was then closed with 1 Vicryl the fascia 2-0 Vicryl subcutaneously and 4 Monocryl for final closure. Steri-Strips sterile dressing placed. Please note Coni Hernandez was present at the entire procedure and on the patient positioning complex portions of the surgery and final skin closure. I attest to the content of the Intraoperative Record and any orders documented therein. Any exceptions are noted below.
--- NOTE | 2025-03-07 09:56 | Fluoroscopy Report ---
FL lumbar spine 2-3V CLINICAL HISTORY: L4-L5 REVISION OF FUSION COMPARISON STUDY: 02/25/2025 FLUOROSCOPY TIME: 167 seconds FLUOROSCOPY IMAGES: 5 EXPOSURE DOSE: 177 mGy FINDINGS: Fluoroscopy was provided for lumbar surgery. IMPRESSION: Intraoperative fluoroscopy. ACT 112: Negative or not required by law. Electronically signed by: Sina Weber M.D. 03/07/2025 9:55 AM
--- NOTE | 2025-03-07 10:55 | Anesthesiology Progress Note ---
Date of Service March 07, 2025 Anesthesia Post Procedure Vital Signs Vital Signs: Temp Pulse Pulse Resp BP BP Pulse Ox 03/07/25 10:35 36.3 C L 93 H 13 131/81 93 03/07/25 10:25 97 H 12 150/79 H 94 03/07/25 10:15 97 H 12 158/89 H 97 03/07/25 10:05 98 H 12 152/96 H 95 03/07/25 09:55 111 H 15 150/92 H 95 03/07/25 09:47 36.5 C 111 H 12 158/107 H 99 03/07/25 06:33 36.7 C 103 H 16 170/81 H 95 03/06/25 23:21 36.6 C 108 H 16 166/92 H 94 03/06/25 19:04 36.6 C 106 H 18 152/78 H 93 03/06/25 15:31 36.7 C 99 H 16 143/68 H 92 O2 Del Method O2 Flow Rate 03/07/25 10:35 Nasal Cannula 2 03/07/25 10:25 Oxymask 3 03/07/25 10:15 Oxymask 3 03/07/25 10:05 Oxymask 5 03/07/25 09:55 Oxymask 5 03/07/25 09:47 Oxymask 5 03/07/25 06:33 Room Air 03/06/25 23:21 Room Air 03/06/25 19:04 Room Air 03/06/25 15:31 Room Air Pain Intensity Right Leg: Pain Intensity: 9 Back: Pain Intensity: 4 Bilateral Leg: Pain Intensity: 10 Transfer of Care Handoff Completed per policy Notes Mental Status: alert / awake / arousable Patient Amnestic to Procedure: Yes Nausea / Vomiting: adequately controlled Pain: adequately controlled Airway Patency, RR, SpO2: stable & adequate BP & HR: stable & adequate Hydration State: stable & adequate Anesthetic Complications: no major complications apparent and Pt Satisfied with anesthetic care
[2025-03-07] MEDS: FAMOTIDINE/PF 20 MG/2 ML VIAL IV ONE (11:18)
[2025-03-07] MEDS: ALUMINUM/MAGNESIUM SUSP 30 ML UDC PO PRN (16:23)
[2025-03-08 07:08] LABS: Hematocrit (blood only) 27.6 % (37.0-47.0); Hemoglobin 9.1 g/dl (12.0-16.0); Mean Corpuscular Hemoglobin 26.9 pg (25.0-34.0); Mean Corpuscular Volume 81.7 fL (80.0-100.0); Platelet Count 502 K/uL (130-400); RDW Standard Deviation 42.0 fL (36.4-46.3); Red Blood Count 3.38 M/uL (4.20-5.40); White Blood Count 27.91 K/ul (4.8-10.8)
[2025-03-08 07:37] LABS: Anion Gap 5.0 (3-11); Blood Urea Nitrogen 26.0 mg/dl (6-23); Calcium 8.4 mg/dl (8.6-10.3); Carbon Dioxide 30.0 mmol/L (21-32); Chloride 97.0 mmol/L (98-107); Creatinine Clr Calc Pharmacy 68.9 ml/min; Glucose 145.0 mg/dl (70-99(Fasting)); Potassium 4.5 mmol/L (3.5-5.1); Sodium 132.0 mmol/L (136-145)
--- NOTE | 2025-03-08 09:00 | Hospitalist Progress Note ---
Date of Service March 08, 2025 Assessment & Plan (1) Acute blood loss anemia: (2) Other spondylosis with radiculopathy, lumbar region: (3) Tachycardia: (4) Leukocytosis: (5) Hyponatremia: (6) Hypertension: (7) Hyperlipidemia: (8) Rheumatoid arthritis: Plan This is a 69 year old female with PMH significant for hypertension, hyperlipidemia, rheumatoid arthritis, palpitations, history of bilateral pulmonary emboli, and lumbar spondylosis with radiculopathy who underwent L1-L5 decompression and fusion on 02/25/[address] Nova. We have been consulted for post operative medical management. Other spondylosis with radiculopathy, lumbar region L1-L5 decompression and fusion by Dr. Nova on February 25 complicated by fluid collection, fall with end plate fractures -Post-op lumbar Spine MRI 03/04 due to ongoing BLE weakness and pain * 15x5.1x3.1 cm fluid collection R aspect of subcu fat extending from level L1 vertebra down to level opposite L5 vertebra * The etiological probabilities include postoperative seroma, CSF collection, secondary to dural tear vs. Inflammatory collection with abscess formation -Patient fell due overnight and 03/05 CT lumbar spine revealed end plate fracture L4 and pedicle fx of L5 on the right, prompting revision surgery on 03/07 -POD #1 s/p removal of posterior segmental instrumentation L2 L4-L5, revision decompression with bilateral foraminotomies L4-L5, kyphoplasty L2 L4 and L5 vertebral bodies, revision fusion L4-L5 L5--S1.. and Stimulan beads impregnated with vancomycin and gentamicin throughout the incision by Dr. Nova -Post op lumbar fascia with prelim E coli and Morganella, sensitivities to fol low. Epidural space culture with no growth to date, pending - Will cover empirically with Ertapenem, added blood cultures and ID consult for surgical site infxn vs ? contaminant -WBC up-trended from 22 -> 27.9 in setting of ongoing IV steroids and ? SSI. ESR and CRP reassuring. Continue monitoring white count closely -Continue incentive spirometry, PT/OT evals Acute blood loss anemia 2/2 surgery as above Hgb 9.1 (from pre-op hgb 10.1, EBL 100ml) Tachycardia Likely due to pain/anemia, patient asymptomatic HR 90-115s Preop EKG on 02/11/2025 with sinus tachycardia at rate of 105bpm Continue monitoring Chronic Hyponatremia Na 130-132 Patient notes poor PO intake Hold HCTZ and monitor sodium levels Pre Diabetes Steroid induced hyperglycemia A1C 6.3 BSG elevated likely in setting of IV steroids, 24hr review shows consistent elevation Aded novolog coverage for now and reduce dexamethasone to 4mg Hypertension Continue home amlodipine, spironolactone Hold HCTZ for low sodium, resume when able Rheumatoid arthritis Hold leflunomide Care coordinated with Dr. Gibbons. Thank you for this consultation. We will follow the patient with you during their hospital stay. You can reach a [facility] via [employer]. I spent a total of 60 minutes coordinating, documenting, and providing care for this patient excluding time spent in the performance of separately billed services or time spent by another provider/QHP. Admission and Anticipated Discharge Date Admission Date: February 25, 2025 Subjective Seen and evaluated in 361-1. More comfortable overnight but still with surgical site pain in lower back. Able to lift right leg off of bed today. No F/C, CP, SOB, N/V, abd pain, dysuria. Passing flatus today. Review of Systems Review of Systems: At least ten systems reviewed and negative except as noted in the HPI. Physical Exam Physical Exam: Gen: WD/WN, NAD, resting in bed, A&Ox3 HEENT: Normocephalic, atraumatic Lung: Clear to Auscultation bilaterally Heart: Regular rate, regular rhythm Abdomen: Soft, NT, ND +BS x 4 Extremities: +Spinal dressing c/d/i, Gilberto drain, no edema, bilateral R foot drop (known) Skin: Warm, no rash Results & Data Results & Data Vital Signs (Past 12 Hours) Vital Signs Temp Pulse Resp BP Pulse Ox O2 Del Method 03/08/25 07:39 36.5 C 91 H 16 159/83 H 92 Room Air 03/08/25 03:00 36.8 C 100 H 18 151/71 H 95 Room Air 03/07/25 23:00 36.7 C 108 H 18 141/94 H 94 Room Air Laboratory Results Short CBC 03/08/25 Range/Units 06:39 WBC 27.91 H (4.8-10.8) K/ul Hgb 9.1 L (12.0-16.0) g/dl Hct 27.6 L (37.0-47.0) % Plt Count 502 H (130-400) K/uL BMP 03/08/25 06:39 Sodium 132 L Potassium 4.5 Chloride 97 L Carbon Dioxide 30 BUN 26 H Creatinine 0.88 Glucose 145 H Calcium 8.4 L Diagnostic Findings Lumbar Spine X-Ray 02/25/25 06:00 FL lumbar spine 2-3V CLINICAL HISTORY: L1-L5 Decompression/fusion COMPARISON STUDY: None FLUOROSCOPY TIME: 33 seconds FLUOROSCOPY IMAGES: 3 EXPOSURE DOSE: 40 mGy FINDINGS: Fluoroscopy was provided for lumbar metallic fusion. IMPRESSION: Intraoperative fluoroscopy. ACT 112: Negative or not required by law. Electronically signed by: Sina Weber M.D. 02/25/2025 2:21 PM Lumbar Spine MRI 03/04/25 11:06 EXAM: MR lumbar spine wo con CLINICAL HISTORY: Leg weakness. Numbness bilat feet tingling surgery L1-L5 decompression and fusion 02/25/25. TECHNIQUE: Different pulse sequences were performed in different planes for the lumbar spine without contrast. Images were sent through PACs for diagnostic interpretation. COMPARISON: Fluoroscopy dated 02/25/2025. FINDINGS: Status post metallic hardware fixation by transpedicular screws/rakesh device at the L2, L3 L4, And L5 vertebrae. Metallic interbody fusion devices. The metallic hardware induces inevitable Blooming (ferromagnetic) artifacts, degrading the image quality. Partial Obscuration of the intervertebral discs by the metallic hardware.Spinolaminectomies of L2, L3, L4 and L5 neural arches opposite the corresponding L2-L3, L3-L4 and L4-L5 intervertebral discs. Postoperative changes are seen at the paraspinal muscles and overlying subcutaneous fat. There is edema of the L1-L2, L2-L3 and L4-L5 intervertebral discs. A large Collection of fluid signals is seen dominantly at the right aspect of the subcutaneous fat, extending from the level opposite the L1 vertebra down to the level opposite the L5 vertebra. A track-like extension is seen at the paraspinal muscles and the midline opposite the L4-L5 intervertebral disc . This Fluid collection measures 15 x 5.1 x 3.1 cm in the largest craniocaudal, [id number] and anteroposterior dimensions. The etiological probabilities include Postoperative seroma, CSF collection, secondary to dural tear vs. Inflammatory collection with abscess formation. Clinical, laboratory correlation and further workup are recommended as appropriate. Dextroconvex lumbar scoliosis.The Chavez Lippmann's angle measures 10.8°. The scanned intervertebral discs show variable degrees of degeneration, denoted by low signal intensity on T2 WI with a relative reduction in height. Multiple Schmorl's nodes are seen at the lower thoracic and upper lumbar vertebral end plates. The marrow signals of the scanned osseous structures are homogeneous. Maintained vertebral heights with intact vertebral bodies and neural arches. Level by Level analysis: T12-L1: There is no focal disc pathology, central canal stenosis, or neural foraminal stenosis. L1-L2: There is A 3.1 mm annular bulge indenting the thecal sac, compromising the subarticular recesses. There is mild central canal stenosis and mild bilateral neural foraminal stenosis with impingement of the emerging nerve roots. Buckled ligamenta flava and arthropathic facet joints augment effects. L2-L3: Metallic hardware is seen in situ. The residual disc compromises the subarticular recesses and neural foramina with impingement of the emerging nerve roots. L3-L4: There is Adequate surgical decompression. L4-L5: Metallic hardware is seen in situ. A 3.1 mm residual disc Annular bulge indenting the thecal sac and compromises the subarticular recesses and neural foramina with impingement of the emerging nerve roots.Partial Obscuration of the right aspect of the spinal canal by the metallic hardware. CT correlation is recommended to justify or deny possible metallic hardware failure. L5-S1: There is no focal disc pathology, central canal stenosis, or neural foraminal stenosis. Hypertrophic arthropathy of the facet joints is seen more on the right side, with consequent compromise of the neural foramina. More on the right side. The lower dorsal spinal cord, conus medullaris, and cauda equina nerve roots are unremarkable. Paravertebral soft tissue is unremarkable. No developmental canal stenosis. IMPRESSION: 1. Status post metallic hardware fixation by transpedicular screws/rakesh device at L2, L3 L4, And L5 vertebrae. Metallic interbody fusion devices. The metallic hardware induces inevitable Blooming (ferromagnetic) artifacts, degrading the image quality. Partial Obscuration of the intervertebral discs by the metallic hardware. Spinolaminectomies of L2, L3, L4 and L5 neural arches opposite the corresponding L2-L3, L3-L4 and L4-L5 intervertebral discs. Postoperative changes are seen at the paraspinal muscles and overlying subcutaneous fat. There is edema of the L1-L2, L2-L3 and L4-L5 intervertebral discs. A large Collection of fluid signals is seen dominantly at the right aspect of the subcutaneous fat, extending from the level opposite the L1 vertebra down to the level opposite the L5 vertebra. A track-like extension is seen at the paraspinal muscles and the midline opposite the L4-L5 intervertebral disc. This Fluid collection measures 15 x 5.1 x 3.1 cm in the largest craniocaudal, [id number] and anteroposterior dimensions. The etiological probabilities include Postoperative seroma, CSF collection, secondary to dural tear vs. Inflammatory collection with abscess formation. Clinical, laboratory correlation and further workup are recommended as appropriate. 2. Dextroconvex lumbar scoliosis.The Chavez Lippmann's angle measures 10.8°. 3. Multiple Schmorl's nodes. 4. L1-L2: There is A 3.1 mm annular bulge. 5. L2-L3: Metallic hardware is seen in situ. The residual disc compromises the subarticular recesses and neural foramina. 6. L3-L4: There is Adequate surgical decompression. 7. L4-L5: Metallic hardware is seen in situ. A 3.1 mm residual disc Annular bulge.Partial Obscuration of the right aspect of the spinal canal by the metallic hardware. CT correlation is recommended to justify or deny possible metallic hardware failure. 8. L5-S1: Hypertrophic arthropathy of the facet joints is seen more on the right side, with consequent compromise of the neural foramina. More on the right side. 9. Multilevel lumbar disc pathologies and postoperative status with effects exerted upon the central spinal canal, subarticular recesses, and neural foramina. Postoperative changes, buckled ligamenta flava, and arthropathic facet joints augment effects. Detailed clinical, laboratory and CT correlation is recommended. 10. The comparison matches the radiographic findings. Electronically signed by Neftali Lundberg 03-04-2025 7:[address] 03/05/25 08:13 CT OF THE LUMBAR SPINE CLINICAL HISTORY: Postoperative evaluation. COMPARISON STUDY: Lumbar spine fluoroscopic images February 25, 2025. Lumbar spine MRI March 04, 2025. TECHNIQUE: Helical axial images of the lumbar spine were obtained. Sagittal and coronal reconstructions were viewed. Automated exposure control was utilized for the study. A dose lowering technique was utilized adhering to the principles of ALARA. FINDINGS: For purposes of numbering on this exam, the L5-S1 disc space is assigned to axial image 341 of [id number]. There are postoperative findings consistent with L1-L5 posterior decompression at L2-L5 pedicle screw fusion with discectomy and interbody spacer placement at the L2-L3, L3-L4 and L4-L5 levels. Lucency adjacent to the bilateral L5 pedicle screws is noted. A change in orientation of the L4-L5 spacers with superior migration is noted when compared to fluoroscopic images February 25, 2025. Superior displacement of the left-sided spacer is greater. There is associated erosion along the inferior endplate of L4 and fragmentation of the posterior cortex. A suspected associated bone fragment posterior to the L4 vertebral body measures 1.1 cm. Evaluation is difficult to image due to artifact from the surgical hardware. There is an acute appearing L5 vertebral body fracture with 30% loss of vertebral body height. No additional fractures are identified. A subcutaneous operative bed fluid collection measures 13.7 x 4.5 x 3 cm, shown on MRI of March 14, 2025. Evaluation of the central canal is nondiagnostic given CT technique and artifact from the hardware. IMPRESSION: 1. Status post L1-L5 posterior decompression and L2-L5 pedicle screw fusion with interbody spacer placement at the L2-L3, L3-L4 and L4-L5 levels. 2. Change in orientation with superior migration of the L4-L5 spacers, left greater than right. Associated erosion of the inferior endplate of L4 with apparent fragmentation of the posterior cortex of L4 with associated bone fragment. Evaluation is suboptimal given streak artifact from the hardware. An underlying infectious process cannot be completely excluded. 3. L5 vertebral body fracture with 30% loss of vertebral body height. 4. Lucency adjacent to the bilateral L5 pedicle screws. This may represent loosening. An infectious process could appear similar. 5. Subcutaneous operative bed fluid collection which measures 13.7 x 4.5 x 3 cm. 6. Nondiagnostic evaluation of the central canal and neural foramen given CT technique and artifact from the surgical hardware. ACT 112: Negative or not required by law. Electronically signed by: John Sanchez M.D. 03/05/2025 10:[address] 03/06/25 23:35 EXAM: CT head/brain wo con CLINICAL HISTORY: AMS TECHNIQUE: Axial non-contrast CT scan of the brain was performed from the skull base to the high parietal region. One of the following dose reduction techniques were utilized for this exam: Automated exposure control, adjustment of the mA and/or kV according to patient size, use of iterative reconstruction. COMPARISON: No previous studies available for comparison FINDINGS: Brain Parenchyma: Age-related changes manifested as dilated sulci and subarachnoid spaces with mild dilatation of the lateral ventricles. Accenutaed white matter hypodensity with patchy hypodense areas at the subcortical and deep white matter regions, features reflecting chronic white matter microangiopathy. Tiny old lacunar insult at the right thalamus. No evidence of acute infarct, hemorrhage, or mass effect on CT basis. Atherosclerotic calcifications are seen at the intracranial vessels. Subarachnoid Spaces: No evidence of subarachnoid hemorrhage or extra-axial fluid collections. Cerebellum and Brainstem: No masses, lesions, or areas of abnormal density. Orbits: Normal appearance of the globes, optic nerves, and extraocular muscles. No evidence of orbital masses or abnormal density. Sinuses: Clear paranasal sinuses. No evidence of sinusitis or mucosal thickening. The frontal sinuses are hypoplastic. Mastoid Air Cells: Clear mastoid air cells. No evidence of mastoiditis. Skull: Normal skull morphology. IMPRESSION: - Age-related changes manifested as dilated sulci and subarachnoid spaces with mild dilatation of the lateral ventricles. - Accenutaed white matter hypodensity with patchy hypodense areas at the subcortical and deep white matter regions, features reflecting chronic white matter microangiopathy. - Tiny old lacunar insult at the right thalamus. - No evidence of acute infarct, hemorrhage, or mass effect on CT basis. - However, recent infarcts may not appear on CT; if clinically suspected, further MRI of the brain is recommended. Electronically signed by Neftali Lundberg 03-07-2025 01:27 AM Lumbar Spine X-Ray 03/07/25 07:45 FL lumbar spine 2-3V CLINICAL HISTORY: L4-L5 REVISION OF FUSION COMPARISON STUDY: 02/25/2025 FLUOROSCOPY TIME: 167 seconds FLUOROSCOPY IMAGES: 5 EXPOSURE DOSE: 177 mGy FINDINGS: Fluoroscopy was provided for lumbar surgery. IMPRESSION: Intraoperative fluoroscopy. ACT 112: Negative or not required by law. Electronically signed by: Sina Weber M.D. 03/07/2025 9:55 AM
--- NOTE | 2025-03-08 11:10 | Orthopedic Progress Note ---
Date of Service March 08, 2025 Assessment & Plan (1) Lumbar compression fracture: Plan: Assessment status post revision fusion with kyphoplasty. Plan at this time we will initiate physical therapy transfers and ambulation as tolerated. Assess her progress throughout the weekend. Possible rehab early next week. Admission and Anticipated Discharge Date Admission Date: February 25, 2025 Subjective Back pain is controlled. No leg pain. Still weakness in the bilateral dorsiflexion. Physical Exam Physical Exam: Patient does appear comfortable. She continues to have foot drop bilaterally. Sensory is intact. Results & Data Vital Signs (Past 12 Hours) Vital Signs Temp Pulse Resp BP Pulse Ox O2 Del Method 03/08/25 07:39 36.5 C 91 H 16 159/83 H 92 Room Air 03/08/25 03:00 36.8 C 100 H 18 151/71 H 95 Room Air Queries Orthopedic Spine Acute Posthemorrhagic Anemia: Yes Obesity: Yes
[2025-03-08] MEDS: ERTAPENEM 1000MG 1,000 MG/10 ML SYR IV SCH (11:30)
[2025-03-08] MEDS: MAGNESIUM HYDROXIDE SUSP 30 ML UDC PO PRN (21:05)
[2025-03-09 07:21] LABS: Hematocrit (blood only) 27.4 % (37.0-47.0); Hemoglobin 9.3 g/dl (12.0-16.0); Mean Corpuscular Hemoglobin 27.2 pg (25.0-34.0); Mean Corpuscular Volume 80.1 fL (80.0-100.0); Platelet Count 489 K/uL (130-400); RDW Standard Deviation 41.6 fL (36.4-46.3); Red Blood Count 3.42 M/uL (4.20-5.40); White Blood Count 30.24 K/ul (4.8-10.8)
[2025-03-09 07:32] LABS: Anion Gap 5.0 (3-11); Blood Urea Nitrogen 23.0 mg/dl (6-23); Calcium 8.4 mg/dl (8.6-10.3); Carbon Dioxide 28.0 mmol/L (21-32); Chloride 97.0 mmol/L (98-107); Creatinine Clr Calc Pharmacy 84.3 ml/min; Glucose 142.0 mg/dl (70-99(Fasting)); Potassium 4.5 mmol/L (3.5-5.1); Sodium 130.0 mmol/L (136-145)
--- NOTE | 2025-03-09 08:22 | Orthopedic Progress Note ---
Date of Service March 09, 2025 Assessment & Plan (1) Lumbar compression fracture: Plan: At this time we will continue physical therapy. Monitor EMILY output. Anticipate discharge to rehab early next week. Admission and Anticipated Discharge Date Admission Date: February 25, 2025 Subjective Patient still struggling with generalized pain but it is overall improved. She is working with physical therapy. Physical Exam Physical Exam: On exam appreciate some modest improvement of her bilateral dorsiflexion. Results & Data Vital Signs (Past 12 Hours) Vital Signs Temp Pulse Pulse Resp BP Pulse Ox O2 Del Method 03/09/25 07:56 36.8 C 92 H 18 172/100 H 95 Room Air 03/08/25 20:33 36.4 C L 88 16 165/81 H 95 Room Air Queries Orthopedic Spine Acute Posthemorrhagic Anemia: Yes Obesity: Yes 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
--- NOTE | 2025-03-09 10:49 | Hospitalist Progress Note ---
Date of Service March 09, 2025 Assessment & Plan (1) Acute blood loss anemia: (2) Other spondylosis with radiculopathy, lumbar region: (3) Tachycardia: (4) Leukocytosis: (5) Hyponatremia: (6) Hypertension: (7) Hyperlipidemia: (8) Rheumatoid arthritis: Plan This is a 69 year old female with PMH significant for hypertension, hyperlipidemia, rheumatoid arthritis, palpitations, history of bilateral pulmonary emboli, and lumbar spondylosis with radiculopathy who underwent L1-L5 decompression and fusion on 02/25/[address] Nova. We have been consulted for post operative medical management. Spondylosis with radiculopathy, lumbar region Post-op spinal epidural abscess s/p washout during revision surgery on 03/07 L1-L5 decompression and fusion by Dr. Nova on February 25 complicated by fluid collection, fall with end plate fractures -Post-op lumbar Spine MRI 03/04 due to ongoing BLE weakness and pain * 15x5.1x3.1 cm fluid collection R aspect of subcu fat extending from level L1 vertebra down to level opposite L5 vertebra -Patient fell due overnight and 03/05 CT lumbar spine revealed end plate fracture L4 and pedicle fx of L5 on the right, prompting revision surgery on 03/07 -POD #2 s/p removal of posterior segmental instrumentation L2 L4-L5, revision decompression with bilateral foraminotomies L4-L5, kyphoplasty L2 L4 and L5 vertebral bodies, revision fusion L4-L5 L5--S1 -Epidural space and lumbar fascia OR cultures growing E coli and Morganella, sensitive to Ertapenem which was started on 03/08 -Follow blood cultures -ID consulted for further recs given duration of abx, likely to need for suppressive therapy given hardware -WBC up-trended from 27 ->30 in setting of IV steroids and infection as above - discontinued IV steroids with resulting cultures confirming post-op infection. Remains afebrile -Discussed case with Dr. Nova this AM - agrees with dc steroids, ID consult. No neurological changes from yesterday. Recommending PT/OT and discharge to rehab next week -Continue incentive spirometry, encourage movement as able Acute blood loss anemia 2/2 surgery as above Hgb stable at 9.3 (from 9.1 yesterday, EBL 100ml) Monitor with daily CBC Tachycardia Likely due to pain/anemia, infection as above, patient asymptomatic HR 90-115s Preop EKG on 02/11/2025 with sinus tachycardia at rate of 105bpm Continue monitoring Chronic Hyponatremia Na 130-132 Patient notes poor PO intake Hold HCTZ and monitor sodium levels Pre-Diabetes Steroid induced hyperglycemia A1C 6.3 BSG elevated likely in setting of IV steroids, 24hr review shows consistent elevation SSI coverage added in setting of high dose steroids - may be able to dc tomorrow Hypertension Continue home amlodipine, spironolactone Hold HCTZ for low sodium, resume when able Rheumatoid arthritis Hold leflunomide Care coordinated with Dr. Gibbons. Thank you for this consultation. We will follow the patient with you during their hospital stay. You can reach a member of the [employer] Hospitalist Team 18/04 via [employer]. I spent a total of 60 minutes coordinating, documenting, and providing care for this patient excluding time spent in the performance of separately billed services or time spent by another provider/QHP. Admission and Anticipated Discharge Date Admission Date: February 25, 2025 Subjective Seen and examined in 361-1. Feeling worn out today. Pain similar to yesterday, still with reduced strength on BLE same as yesterday. No F/C, lightheadedness, CP, SOB, N/V, abd pain. Urinating without issue. Had a bowel movement this morning. Remains afebrile. Review of Systems Review of Systems: At least ten systems reviewed and negative except as noted in the HPI. Physical Exam Physical Exam: Gen: WD/WN, NAD, resting in bed, A&Ox3 HEENT: Normocephalic, atraumatic Lung: Clear to Auscultation bilaterally Heart: Regular rate, regular rhythm Abdomen: Soft, NT, ND +BS x 4 Extremities: +Spinal dressing c/d/i, Gilberto drain, no edema, bilateral R foot drop Skin: Warm, no rash Results & Data Results & Data Vital Signs (Past 12 Hours) Vital Signs Temp Pulse Resp BP Pulse Ox O2 Del Method 03/09/25 07:56 36.8 C 92 H 18 172/100 H 95 Room Air Laboratory Results Short CBC 03/09/25 Range/Units 06:37 WBC 30.24 H* (4.8-10.8) K/ul Hgb 9.3 L (12.0-16.0) g/dl Hct 27.4 L (37.0-47.0) % Plt Count 489 H (130-400) K/uL BMP 03/09/25 06:37 Sodium 130 L Potassium 4.5 Chloride 97 L Carbon Dioxide 28 BUN 23 Creatinine 0.72 Glucose 142 H Calcium 8.4 L Diagnostic Findings Lumbar Spine X-Ray 02/25/25 06:00 FL lumbar spine 2-3V CLINICAL HISTORY: L1-L5 Decompression/fusion COMPARISON STUDY: None FLUOROSCOPY TIME: 33 seconds FLUOROSCOPY IMAGES: 3 EXPOSURE DOSE: 40 mGy FINDINGS: Fluoroscopy was provided for lumbar metallic fusion. IMPRESSION: Intraoperative fluoroscopy. ACT 112: Negative or not required by law. Electronically signed by: Sina Weber M.D. 02/25/2025 2:21 PM Lumbar Spine MRI 03/04/25 11:06 EXAM: MR lumbar spine wo con CLINICAL HISTORY: Leg weakness. Numbness bilat feet tingling surgery L1-L5 decompression and fusion 02/25/25. TECHNIQUE: Different pulse sequences were performed in different planes for the lumbar spine without contrast. Images were sent through PACs for diagnostic interpretation. COMPARISON: Fluoroscopy dated 02/25/2025. FINDINGS: Status post metallic hardware fixation by transpedicular screws/rakesh device at the L2, L3 L4, And L5 vertebrae. Metallic interbody fusion devices. The metallic hardware induces inevitable Blooming (ferromagnetic) artifacts, degrading the image quality. Partial Obscuration of the intervertebral discs by the metallic hardware.Spinolaminectomies of L2, L3, L4 and L5 neural arches opposite the corresponding L2-L3, L3-L4 and L4-L5 intervertebral discs. Postoperative changes are seen at the paraspinal muscles and overlying subcutaneous fat. There is edema of the L1-L2, L2-L3 and L4-L5 intervertebral discs. A large Collection of fluid signals is seen dominantly at the right aspect of the subcutaneous fat, extending from the level opposite the L1 vertebra down to the level opposite the L5 vertebra. A track-like extension is seen at the paraspinal muscles and the midline opposite the L4-L5 intervertebral disc . This Fluid collection measures 15 x 5.1 x 3.1 cm in the largest craniocaudal, [id number] and anteroposterior dimensions. The etiological probabilities include Postoperative seroma, CSF collection, secondary to dural tear vs. Inflammatory collection with abscess formation. Clinical, laboratory correlation and further workup are recommended as appropriate. Dextroconvex lumbar scoliosis.The Chavez Lippmann's angle measures 10.8°. The scanned intervertebral discs show variable degrees of degeneration, denoted by low signal intensity on T2 WI with a relative reduction in height. Multiple Schmorl's nodes are seen at the lower thoracic and upper lumbar vertebral end plates. The marrow signals of the scanned osseous structures are homogeneous. Maintained vertebral heights with intact vertebral bodies and neural arches. Level by Level analysis: T12-L1: There is no focal disc pathology, central canal stenosis, or neural foraminal stenosis. L1-L2: There is A 3.1 mm annular bulge indenting the thecal sac, compromising the subarticular recesses. There is mild central canal stenosis and mild bilateral neural foraminal stenosis with impingement of the emerging nerve roots. Buckled ligamenta flava and arthropathic facet joints augment effects. L2-L3: Metallic hardware is seen in situ. The residual disc compromises the subarticular recesses and neural foramina with impingement of the emerging nerve roots. L3-L4: There is Adequate surgical decompression. L4-L5: Metallic hardware is seen in situ. A 3.1 mm residual disc Annular bulge indenting the thecal sac and compromises the subarticular recesses and neural foramina with impingement of the emerging nerve roots.Partial Obscuration of the right aspect of the spinal canal by the metallic hardware. CT correlation is recommended to justify or deny possible metallic hardware failure. L5-S1: There is no focal disc pathology, central canal stenosis, or neural foraminal stenosis. Hypertrophic arthropathy of the facet joints is seen more on the right side, with consequent compromise of the neural foramina. More on the right side. The lower dorsal spinal cord, conus medullaris, and cauda equina nerve roots are unremarkable. Paravertebral soft tissue is unremarkable. No developmental canal stenosis. IMPRESSION: 1. Status post metallic hardware fixation by transpedicular screws/rakesh device at L2, L3 L4, And L5 vertebrae. Metallic interbody fusion devices. The metallic hardware induces inevitable Blooming (ferromagnetic) artifacts, degrading the image quality. Partial Obscuration of the intervertebral discs by the metallic hardware. Spinolaminectomies of L2, L3, L4 and L5 neural arches opposite the corresponding L2-L3, L3-L4 and L4-L5 intervertebral discs. Postoperative changes are seen at the paraspinal muscles and overlying subcutaneous fat. There is edema of the L1-L2, L2-L3 and L4-L5 intervertebral discs. A large Collection of fluid signals is seen dominantly at the right aspect of the subcutaneous fat, extending from the level opposite the L1 vertebra down to the level opposite the L5 vertebra. A track-like extension is seen at the paraspinal muscles and the midline opposite the L4-L5 intervertebral disc. This Fluid collection measures 15 x 5.1 x 3.1 cm in the largest craniocaudal, [id number] and anteroposterior dimensions. The etiological probabilities include Postoperative seroma, CSF collection, secondary to dural tear vs. Inflammatory collection with abscess formation. Clinical, laboratory correlation and further workup are recommended as appropriate. 2. Dextroconvex lumbar scoliosis.The Chavez Lippmann's angle measures 10.8°. 3. Multiple Schmorl's nodes. 4. L1-L2: There is A 3.1 mm annular bulge. 5. L2-L3: Metallic hardware is seen in situ. The residual disc compromises the subarticular recesses and neural foramina. 6. L3-L4: There is Adequate surgical decompression. 7. L4-L5: Metallic hardware is seen in situ. A 3.1 mm residual disc Annular bulge.Partial Obscuration of the right aspect of the spinal canal by the metallic hardware. CT correlation is recommended to justify or deny possible metallic hardware failure. 8. L5-S1: Hypertrophic arthropathy of the facet joints is seen more on the right side, with consequent compromise of the neural foramina. More on the right side. 9. Multilevel lumbar disc pathologies and postoperative status with effects exerted upon the central spinal canal, subarticular recesses, and neural foramina. Postoperative changes, buckled ligamenta flava, and arthropathic facet joints augment effects. Detailed clinical, laboratory and CT correlation is recommended. 10. The comparison matches the radiographic findings. Electronically signed by Neftali Lundberg 03-04-2025 7:[address] 03/05/25 08:13 CT OF THE LUMBAR SPINE CLINICAL HISTORY: Postoperative evaluation. COMPARISON STUDY: Lumbar spine fluoroscopic images February 25, 2025. Lumbar spine MRI March 04, 2025. TECHNIQUE: Helical axial images of the lumbar spine were obtained. Sagittal and coronal reconstructions were viewed. Automated exposure control was utilized for the study. A dose lowering technique was utilized adhering to the principles of ALARA. FINDINGS: For purposes of numbering on this exam, the L5-S1 disc space is assigned to axial image 341 of [id number]. There are postoperative findings consistent with L1-L5 posterior decompression at L2-L5 pedicle screw fusion with discectomy and interbody spacer placement at the L2-L3, L3-L4 and L4-L5 levels. Lucency adjacent to the bilateral L5 pedicle screws is noted. A change in orientation of the L4-L5 spacers with superior migration is noted when compared to fluoroscopic images February 25, 2025. Superior displacement of the left-sided spacer is greater. There is associated erosion along the inferior endplate of L4 and fragmentation of the posterior cortex. A suspected associated bone fragment posterior to the L4 vertebral body measures 1.1 cm. Evaluation is difficult to image due to artifact from the surgical hardware. There is an acute appearing L5 vertebral body fracture with 30% loss of vertebral body height. No additional fractures are identified. A subcutaneous operative bed fluid collection measures 13.7 x 4.5 x 3 cm, shown on MRI of March 14, 2025. Evaluation of the central canal is nondiagnostic given CT technique and artifact from the hardware. IMPRESSION: 1. Status post L1-L5 posterior decompression and L2-L5 pedicle screw fusion with interbody spacer placement at the L2-L3, L3-L4 and L4-L5 levels. 2. Change in orientation with superior migration of the L4-L5 spacers, left greater than right. Associated erosion of the inferior endplate of L4 with apparent fragmentation of the posterior cortex of L4 with associated bone fragment. Evaluation is suboptimal given streak artifact from the hardware. An underlying infectious process cannot be completely excluded. 3. L5 vertebral body fracture with 30% loss of vertebral body height. 4. Lucency adjacent to the bilateral L5 pedicle screws. This may represent loosening. An infectious process could appear similar. 5. Subcutaneous operative bed fluid collection which measures 13.7 x 4.5 x 3 cm. 6. Nondiagnostic evaluation of the central canal and neural foramen given CT technique and artifact from the surgical hardware. ACT 112: Negative or not required by law. Electronically signed by: John Sanchez M.D. 03/05/2025 10:[address] 03/06/25 23:35 EXAM: CT head/brain wo con CLINICAL HISTORY: AMS TECHNIQUE: Axial non-contrast CT scan of the brain was performed from the skull base to the high parietal region. One of the following dose reduction techniques were utilized for this exam: Automated exposure control, adjustment of the mA and/or kV according to patient size, use of iterative reconstruction. COMPARISON: No previous studies available for comparison FINDINGS: Brain Parenchyma: Age-related changes manifested as dilated sulci and subarachnoid spaces with mild dilatation of the lateral ventricles. Accenutaed white matter hypodensity with patchy hypodense areas at the subcortical and deep white matter regions, features reflecting chronic white matter microangiopathy. Tiny old lacunar insult at the right thalamus. No evidence of acute infarct, hemorrhage, or mass effect on CT basis. Atherosclerotic calcifications are seen at the intracranial vessels. Subarachnoid Spaces: No evidence of subarachnoid hemorrhage or extra-axial fluid collections. Cerebellum and Brainstem: No masses, lesions, or areas of abnormal density. Orbits: Normal appearance of the globes, optic nerves, and extraocular muscles. No evidence of orbital masses or abnormal density. Sinuses: Clear paranasal sinuses. No evidence of sinusitis or mucosal thickening. The frontal sinuses are hypoplastic. Mastoid Air Cells: Clear mastoid air cells. No evidence of mastoiditis. Skull: Normal skull morphology. IMPRESSION: - Age-related changes manifested as dilated sulci and subarachnoid spaces with mild dilatation of the lateral ventricles. - Accenutaed white matter hypodensity with patchy hypodense areas at the subcortical and deep white matter regions, features reflecting chronic white matter microangiopathy. - Tiny old lacunar insult at the right thalamus. - No evidence of acute infarct, hemorrhage, or mass effect on CT basis. - However, recent infarcts may not appear on CT; if clinically suspected, further MRI of the brain is recommended. Electronically signed by Neftali Lundberg 03-07-2025 01:27 AM Lumbar Spine X-Ray 03/07/25 07:45 FL lumbar spine 2-3V CLINICAL HISTORY: L4-L5 REVISION OF FUSION COMPARISON STUDY: 02/25/2025 FLUOROSCOPY TIME: 167 seconds FLUOROSCOPY IMAGES: 5 EXPOSURE DOSE: 177 mGy FINDINGS: Fluoroscopy was provided for lumbar surgery. IMPRESSION: Intraoperative fluoroscopy. ACT 112: Negative or not required by law. Electronically signed by: Sina Weber M.D. 03/07/2025 9:55 AM
[2025-03-10 07:00] LABS: Hematocrit (blood only) 25.8 % (37.0-47.0); Hemoglobin 8.5 g/dl (12.0-16.0); Mean Corpuscular Hemoglobin 26.9 pg (25.0-34.0); Mean Corpuscular Volume 81.6 fL (80.0-100.0); Platelet Count 401 K/uL (130-400); RDW Standard Deviation 42.5 fL (36.4-46.3); Red Blood Count 3.16 M/uL (4.20-5.40); White Blood Count 24.17 K/ul (4.8-10.8)
[2025-03-10 07:21] LABS: Anion Gap 4.0 (3-11); Blood Urea Nitrogen 25.0 mg/dl (6-23); Calcium 8.0 mg/dl (8.6-10.3); Carbon Dioxide 29.0 mmol/L (21-32); Chloride 99.0 mmol/L (98-107); Creatinine Clr Calc Pharmacy 80.9 ml/min; Glucose 97.0 mg/dl (70-99(Fasting)); Potassium 4.8 mmol/L (3.5-5.1); Sodium 132.0 mmol/L (136-145)
--- NOTE | 2025-03-10 07:53 | Orthopedic Progress Note ---
Date of Service March 10, 2025 Assessment & Plan (1) Other spondylosis with radiculopathy, lumbar region: Plan: Patient is stable at this point. She is postoperative or 3 status post revision surgery removal of hardware kyphoplasty and reinstrumentation. We will continue with GI DVT prophylaxis and pain control measures. Will continue with mobilization efforts as well. Admission and Anticipated Discharge Date Admission Date: February 25, 2025 Subjective Patient was seen bedside in room 361. She states that her pain is still a 10 on 10. She is not having a leg pain however. She did try to get up and move yesterday but had a lot of challenges. Just lying in bed she is not having any radicular complaints. She is tolerating p.o. She denies any other numbness, tingling, or paresthesias. Physical Exam Physical Exam: On exam the patient is resting comfortably in her room. Her abdomen soft and nontender calves are supple and nontender. She has full strength with dorsiflexion and plantarflexion. Her dressing is clean dry and intact. Her EMILY drain is in place and holding suction she had 50 cc on the last recording and 40 on the previous. Results & Data Vital Signs (Past 12 Hours) Vital Signs Temp Pulse Resp BP Pulse Ox O2 Del Method 03/10/25 07:38 36.3 C L 79 16 138/81 93 Room Air 03/09/25 22:20 36.5 C 99 H 20 144/89 H 96 Room Air
[2025-03-10] MEDS: POLYETHYLENE (MIRALAX) 17 GM PACK PO SCH (09:01)
--- NOTE | 2025-03-10 10:14 | Hospitalist Progress Note ---
Date of Service March 10, 2025 Assessment & Plan (1) Acute blood loss anemia: (2) Other spondylosis with radiculopathy, lumbar region: (3) Tachycardia: (4) Leukocytosis: (5) Hyponatremia: (6) Hypertension: (7) Hyperlipidemia: (8) Rheumatoid arthritis: Plan This is a 69 year old female with PMH significant for hypertension, hyperlipidemia, rheumatoid arthritis, palpitations, history of bilateral pulmonary emboli, and lumbar spondylosis with radiculopathy who underwent L1-L5 decompression and fusion on 02/25/[address] Nova. We have been consulted for post operative medical management. Spondylosis with radiculopathy, lumbar region Post-op spinal epidural abscess s/p washout during revision surgery on 03/07 L1-L5 decompression and fusion by Dr. Nova on February 25 complicated by fluid collection, fall with end plate fractures -Post-op lumbar Spine MRI 03/04 due to ongoing BLE weakness and pain * 15x5.1x3.1 cm fluid collection R aspect of subcu fat extending from level L1 vertebra down to level opposite L5 vertebra -Patient fell due overnight and 03/05 CT lumbar spine revealed end plate fracture L4 and pedicle fx of L5 on the right, prompting revision surgery on 03/07 -POD #3 s/p removal of posterior segmental instrumentation L2 L4-L5, revision decompression with bilateral foraminotomies L4-L5, kyphoplasty L2 L4 and L5 vertebral bodies, revision fusion L4-L5, L5-S1 -Epidural space and lumbar fascia OR cultures growing E coli and Morganella, sensitive to Ertapenem which was started on 03/08 -Follow blood cultures -ID consulted for further recs given duration of abx, likely to need for suppressive therapy given hardware -WBC downtrending from 30 -> 24, remains afebrile -Dr. Nova recommending continued PT/OT and discharge to acute rehab this c oming week -Continue incentive spirometry, encourage movement as able Acute blood loss anemia 2/2 surgery as above Hgb stable 8.5 (from 9.1 yesterday, EBL 100ml) No indication for transfusion at this time Monitor with daily CBC Tachycardia Likely due to pain/anemia, infection as above, patient asymptomatic HR 90-115s Preop EKG on 02/11/2025 with sinus tachycardia at rate of 105bpm Continue monitoring Chronic Hyponatremia Na 130-132 Patient notes poor PO intake Hold HCTZ and monitor sodium levels Pre-Diabetes Steroid induced hyperglycemia -> resolved A1C 6.3 BSG elevated likely in setting of IV steroids, has downtrended since steroids dc'd on 03/09 Discontinued SSI, monitor BSG on AM BMP Hypertension Continue home amlodipine, spironolactone Hold HCTZ for low sodium, resume when able Rheumatoid arthritis Hold leflunomide updated at bedside. Care coordinated with Dr. Gibbons. Thank you for this consultation. We will follow the patient with you during their hospital stay. You can reach a member of the [facility]ist Team 18/04 via [employer]. I spent a total of 45 minutes coordinating, documenting, and providing care for this patient excluding time spent in the performance of separately billed services or time spent by another provider/QHP. Admission and Anticipated Discharge Date Admission Date: February 25, 2025 Subjective Seen and examined in 361-1. Getting ready to work with PT. Pain similar to yesterday, still with reduced strength on BLE, feels foot strength is improving slightly. Remains afebrile. No lightheadedness, CP, SOB, N/V, abd pain. Urinating without issue. Multiple bowel movements post op. Review of Systems Review of Systems: At least ten systems reviewed and negative except as noted in the HPI. Physical Exam Physical Exam: Gen: WD/WN, NAD, resting in bed, A&Ox3 HEENT: Normocephalic, atraumatic Lung: Clear to Auscultation bilaterally Heart: Regular rate, regular rhythm Abdomen: Soft, NT, ND +BS x 4 Extremities: +Spinal dressing c/d/i, Gilberto drain, no edema, foot drop unchanged Skin: Warm, no rash Results & Data Results & Data Vital Signs (Past 12 Hours) Vital Signs Temp Pulse Resp BP Pulse Ox O2 Del Method 03/10/25 07:38 36.3 C L 79 16 138/81 93 Room Air 03/09/25 22:20 36.5 C 99 H 20 144/89 H 96 Room Air Laboratory Results Short CBC 03/10/25 Range/Units 06:43 WBC 24.17 H (4.8-10.8) K/ul Hgb 8.5 L (12.0-16.0) g/dl Hct 25.8 L (37.0-47.0) % Plt Count 401 H (130-400) K/uL BMP 03/10/25 06:43 Sodium 132 L Potassium 4.8 Chloride 99 Carbon Dioxide 29 BUN 25 H Creatinine 0.75 Glucose 97 Calcium 8.0 L Diagnostic Findings Lumbar Spine X-Ray 02/25/25 06:00 FL lumbar spine 2-3V CLINICAL HISTORY: L1-L5 Decompression/fusion COMPARISON STUDY: None FLUOROSCOPY TIME: 33 seconds FLUOROSCOPY IMAGES: 3 EXPOSURE DOSE: 40 mGy FINDINGS: Fluoroscopy was provided for lumbar metallic fusion. IMPRESSION: Intraoperative fluoroscopy. ACT 112: Negative or not required by law. Electronically signed by: Sina Weber M.D. 02/25/2025 2:21 PM Lumbar Spine MRI 03/04/25 11:06 EXAM: MR lumbar spine wo con CLINICAL HISTORY: Leg weakness. Numbness bilat feet tingling surgery L1-L5 decompression and fusion 02/25/25. TECHNIQUE: Different pulse sequences were performed in different planes for the lumbar spine without contrast. Images were sent through PACs for diagnostic interpretation. COMPARISON: Fluoroscopy dated 02/25/2025. FINDINGS: Status post metallic hardware fixation by transpedicular screws/rakesh device at the L2, L3 L4, And L5 vertebrae. Metallic interbody fusion devices. The metallic hardware induces inevitable Blooming (ferromagnetic) artifacts, degrading the image quality. Partial Obscuration of the intervertebral discs by the metallic hardware.Spinolaminectomies of L2, L3, L4 and L5 neural arches opposite the corresponding L2-L3, L3-L4 and L4-L5 intervertebral discs. Postoperative changes are seen at the paraspinal muscles and overlying subcutaneous fat. There is edema of the L1-L2, L2-L3 and L4-L5 intervertebral discs. A large Collection of fluid signals is seen dominantly at the right aspect of the subcutaneous fat, extending from the level opposite the L1 vertebra down to the level opposite the L5 vertebra. A track-like extension is seen at the paraspinal muscles and the midline opposite the L4-L5 intervertebral disc . This Fluid collection measures 15 x 5.1 x 3.1 cm in the largest craniocaudal, [id number] and anteroposterior dimensions. The etiological probabilities include Postoperative seroma, CSF collection, secondary to dural tear vs. Inflammatory collection with abscess formation. Clinical, laboratory correlation and further workup are recommended as appropriate. Dextroconvex lumbar scoliosis.The Chavez Lippmann's angle measures 10.8°. The scanned intervertebral discs show variable degrees of degeneration, denoted by low signal intensity on T2 WI with a relative reduction in height. Multiple Schmorl's nodes are seen at the lower thoracic and upper lumbar vertebral end plates. The marrow signals of the scanned osseous structures are homogeneous. Maintained vertebral heights with intact vertebral bodies and neural arches. Level by Level analysis: T12-L1: There is no focal disc pathology, central canal stenosis, or neural foraminal stenosis. L1-L2: There is A 3.1 mm annular bulge indenting the thecal sac, compromising the subarticular recesses. There is mild central canal stenosis and mild bilateral neural foraminal stenosis with impingement of the emerging nerve roots. Buckled ligamenta flava and arthropathic facet joints augment effects. L2-L3: Metallic hardware is seen in situ. The residual disc compromises the subarticular recesses and neural foramina with impingement of the emerging nerve roots. L3-L4: There is Adequate surgical decompression. L4-L5: Metallic hardware is seen in situ. A 3.1 mm residual disc Annular bulge indenting the thecal sac and compromises the subarticular recesses and neural foramina with impingement of the emerging nerve roots.Partial Obscuration of the right aspect of the spinal canal by the metallic hardware. CT correlation is recommended to justify or deny possible metallic hardware failure. L5-S1: There is no focal disc pathology, central canal stenosis, or neural foraminal stenosis. Hypertrophic arthropathy of the facet joints is seen more on the right side, with consequent compromise of the neural foramina. More on the right side. The lower dorsal spinal cord, conus medullaris, and cauda equina nerve roots are unremarkable. Paravertebral soft tissue is unremarkable. No developmental canal stenosis. IMPRESSION: 1. Status post metallic hardware fixation by transpedicular screws/rakesh device at L2, L3 L4, And L5 vertebrae. Metallic interbody fusion devices. The metallic hardware induces inevitable Blooming (ferromagnetic) artifacts, degrading the image quality. Partial Obscuration of the intervertebral discs by the metallic hardware. Spinolaminectomies of L2, L3, L4 and L5 neural arches opposite the corresponding L2-L3, L3-L4 and L4-L5 intervertebral discs. Postoperative changes are seen at the paraspinal muscles and overlying subcutaneous fat. There is edema of the L1-L2, L2-L3 and L4-L5 intervertebral discs. A large Collection of fluid signals is seen dominantly at the right aspect of the subcutaneous fat, extending from the level opposite the L1 vertebra down to the level opposite the L5 vertebra. A track-like extension is seen at the paraspinal muscles and the midline opposite the L4-L5 intervertebral disc. This Fluid collection measures 15 x 5.1 x 3.1 cm in the largest craniocaudal, [id number] and anteroposterior dimensions. The etiological probabilities include Postoperative seroma, CSF collection, secondary to dural tear vs. Inflammatory collection with abscess formation. Clinical, laboratory correlation and further workup are recommended as appropriate. 2. Dextroconvex lumbar scoliosis.The Chavez Lippmann's angle measures 10.8°. 3. Multiple Schmorl's nodes. 4. L1-L2: There is A 3.1 mm annular bulge. 5. L2-L3: Metallic hardware is seen in situ. The residual disc compromises the subarticular recesses and neural foramina. 6. L3-L4: There is Adequate surgical decompression. 7. L4-L5: Metallic hardware is seen in situ. A 3.1 mm residual disc Annular bulge.Partial Obscuration of the right aspect of the spinal canal by the metallic hardware. CT correlation is recommended to justify or deny possible metallic hardware failure. 8. L5-S1: Hypertrophic arthropathy of the facet joints is seen more on the right side, with consequent compromise of the neural foramina. More on the right side. 9. Multilevel lumbar disc pathologies and postoperative status with effects exerted upon the central spinal canal, subarticular recesses, and neural foramina. Postoperative changes, buckled ligamenta flava, and arthropathic facet joints augment effects. Detailed clinical, laboratory and CT correlation is recommended. 10. The comparison matches the radiographic findings. Electronically signed by Neftali Lundberg 03-04-2025 7:[address] 03/05/25 08:13 CT OF THE LUMBAR SPINE CLINICAL HISTORY: Postoperative evaluation. COMPARISON STUDY: Lumbar spine fluoroscopic images February 25, 2025. Lumbar spine MRI March 04, 2025. TECHNIQUE: Helical axial images of the lumbar spine were obtained. Sagittal and coronal reconstructions were viewed. Automated exposure control was utilized for the study. A dose lowering technique was utilized adhering to the principles of ALARA. FINDINGS: For purposes of numbering on this exam, the L5-S1 disc space is assigned to axial image 341 of [id number]. There are postoperative findings consistent with L1-L5 posterior decompression at L2-L5 pedicle screw fusion with discectomy and interbody spacer placement at the L2-L3, L3-L4 and L4-L5 levels. Lucency adjacent to the bilateral L5 pedicle screws is noted. A change in orientation of the L4-L5 spacers with superior migration is noted when compared to fluoroscopic images February 25, 2025. Superior displacement of the left-sided spacer is greater. There is associated erosion along the inferior endplate of L4 and fragmentation of the posterior cortex. A suspected associated bone fragment posterior to the L4 vertebral body measures 1.1 cm. Evaluation is difficult to image due to artifact from the surgical hardware. There is an acute appearing L5 vertebral body fracture with 30% loss of vertebral body height. No additional fractures are identified. A subcutaneous operative bed fluid collection measures 13.7 x 4.5 x 3 cm, shown on MRI of March 14, 2025. Evaluation of the central canal is nondiagnostic given CT technique and artifact from the hardware. IMPRESSION: 1. Status post L1-L5 posterior decompression and L2-L5 pedicle screw fusion with interbody spacer placement at the L2-L3, L3-L4 and L4-L5 levels. 2. Change in orientation with superior migration of the L4-L5 spacers, left greater than right. Associated erosion of the inferior endplate of L4 with apparent fragmentation of the posterior cortex of L4 with associated bone fragment. Evaluation is suboptimal given streak artifact from the hardware. An underlying infectious process cannot be completely excluded. 3. L5 vertebral body fracture with 30% loss of vertebral body height. 4. Lucency adjacent to the bilateral L5 pedicle screws. This may represent loosening. An infectious process could appear similar. 5. Subcutaneous operative bed fluid collection which measures 13.7 x 4.5 x 3 cm. 6. Nondiagnostic evaluation of the central canal and neural foramen given CT technique and artifact from the surgical hardware. ACT 112: Negative or not required by law. Electronically signed by: John Sanchez M.D. 03/05/2025 10:[address] 03/06/25 23:35 EXAM: CT head/brain wo con CLINICAL HISTORY: AMS TECHNIQUE: Axial non-contrast CT scan of the brain was performed from the skull base to the high parietal region. One of the following dose reduction techniques were utilized for this exam: Automated exposure control, adjustment of the mA and/or kV according to patient size, use of iterative reconstruction. COMPARISON: No previous studies available for comparison FINDINGS: Brain Parenchyma: Age-related changes manifested as dilated sulci and subarachnoid spaces with mild dilatation of the lateral ventricles. Accenutaed white matter hypodensity with patchy hypodense areas at the subcortical and deep white matter regions, features reflecting chronic white matter microangiopathy. Tiny old lacunar insult at the right thalamus. No evidence of acute infarct, hemorrhage, or mass effect on CT basis. Atherosclerotic calcifications are seen at the intracranial vessels. Subarachnoid Spaces: No evidence of subarachnoid hemorrhage or extra-axial fluid collections. Cerebellum and Brainstem: No masses, lesions, or areas of abnormal density. Orbits: Normal appearance of the globes, optic nerves, and extraocular muscles. No evidence of orbital masses or abnormal density. Sinuses: Clear paranasal sinuses. No evidence of sinusitis or mucosal thickening. The frontal sinuses are hypoplastic. Mastoid Air Cells: Clear mastoid air cells. No evidence of mastoiditis. Skull: Normal skull morphology. IMPRESSION: - Age-related changes manifested as dilated sulci and subarachnoid spaces with mild dilatation of the lateral ventricles. - Accenutaed white matter hypodensity with patchy hypodense areas at the subcortical and deep white matter regions, features reflecting chronic white matter microangiopathy. - Tiny old lacunar insult at the right thalamus. - No evidence of acute infarct, hemorrhage, or mass effect on CT basis. - However, recent infarcts may not appear on CT; if clinically suspected, further MRI of the brain is recommended. Electronically signed by Neftali Lundberg 03-07-2025 01:27 AM Lumbar Spine X-Ray 03/07/25 07:45 FL lumbar spine 2-3V CLINICAL HISTORY: L4-L5 REVISION OF FUSION COMPARISON STUDY: 02/25/2025 FLUOROSCOPY TIME: 167 seconds FLUOROSCOPY IMAGES: 5 EXPOSURE DOSE: 177 mGy FINDINGS: Fluoroscopy was provided for lumbar surgery. IMPRESSION: Intraoperative fluoroscopy. ACT 112: Negative or not required by law. Electronically signed by: Sina Weber M.D. 03/07/2025 9:55 AM
[2025-03-11 07:15] LABS: Hematocrit (blood only) 27.4 % (37.0-47.0); Hemoglobin 8.9 g/dl (12.0-16.0); Mean Corpuscular Hemoglobin 27.0 pg (25.0-34.0); Mean Corpuscular Volume 83.0 fL (80.0-100.0); Platelet Count 382 K/uL (130-400); RDW Standard Deviation 44.2 fL (36.4-46.3); Red Blood Count 3.30 M/uL (4.20-5.40); White Blood Count 18.34 K/ul (4.8-10.8)
[2025-03-11 07:41] LABS: Anion Gap 5.0 (3-11); Blood Urea Nitrogen 20.0 mg/dl (6-23); Calcium 8.0 mg/dl (8.6-10.3); Carbon Dioxide 28.0 mmol/L (21-32); Chloride 100.0 mmol/L (98-107); Creatinine Clr Calc Pharmacy 78.8 ml/min; Glucose 85.0 mg/dl (70-99(Fasting)); Potassium 4.1 mmol/L (3.5-5.1); Sodium 133.0 mmol/L (136-145)
--- NOTE | 2025-03-11 11:26 | Orthopedic Progress Note ---
Date of Service March 11, 2025 Assessment & Plan (1) Lumbar compression fracture: Plan: At this time we will continue with therapy as tolerated. I encouraged her to get out of bed is much as tolerable and sit in the chair. Stand and ambulate is much as she is able to continue to develop her strength. She ultimately will be a candidate for rehab later this week. Await infectious disease input. Admission and Anticipated Discharge Date Admission Date: February 25, 2025 Subjective Back pain controlled. She is having no leg pain but still some strength deficits in the lower extremities. Physical Exam Physical Exam: Patient is currently in bed. She continues to exhibit marked deficits with quadriceps and dorsiflexion. Sensory intact. Results & Data Vital Signs (Past 12 Hours) Vital Signs Temp Pulse Resp BP Pulse Ox O2 Del Method 03/11/25 08:00 36.5 C 99 H 18 143/80 H 93 Room Air Queries Orthopedic Spine Acute Posthemorrhagic Anemia: Yes Obesity: Yes 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
--- NOTE | 2025-03-11 12:35 | Hospitalist Progress Note ---
Date of Service March 11, 2025 Assessment & Plan (1) Acute blood loss anemia: (2) Other spondylosis with radiculopathy, lumbar region: (3) Tachycardia: (4) Leukocytosis: (5) Hyponatremia: (6) Hypertension: (7) Hyperlipidemia: (8) Rheumatoid arthritis: Plan This is a 69 year old female with PMH significant for hypertension, hyperlipidemia, rheumatoid arthritis, palpitations, history of bilateral pulmonary emboli, and lumbar spondylosis with radiculopathy who underwent L1-L5 decompression and fusion on 02/25/[address] Nova. We have been consulted for post operative medical management. Spondylosis with radiculopathy, lumbar region Post-op spinal epidural abscess s/p washout during revision surgery on 03/07 L1-L5 decompression and fusion by Dr. Nova on February 25 complicated by fluid collection, fall with end plate fractures -Post-op lumbar Spine MRI 03/04 due to ongoing BLE weakness and pain * 15x5.1x3.1 cm fluid collection R aspect of subcu fat extending from level L1 vertebra down to level opposite L5 vertebra -Patient fell due overnight and 03/05 CT lumbar spine revealed end plate fracture L4 and pedicle fx of L5 on the right, prompting revision surgery on 03/07 -POD #3 s/p removal of posterior segmental instrumentation L2 L4-L5, revision decompression with bilateral foraminotomies L4-L5, kyphoplasty L2 L4 and L5 vertebral bodies, revision fusion L4-L5, L5-S1 -Epidural space and lumbar fascia OR cultures growing E coli and Morganella, sensitive to Ertapenem which was started on 03/08 -Follow blood cultures -ID consulted for further recs given duration of abx, likely to need for suppressive therapy given hardware -recommended Rocephin 2g q24hrs, Vancomycin for 6 weeks and po rifampin 300mg BID x 3 months -WBC downtrending from 30 -> 24, remains afebrile -Dr. Nova recommending continued PT/OT and discharge to acute rehab this coming week -Continue incentive spirometry, encourage movement as able Acute blood loss anemia 2/2 surgery as above Hgb stable 8.5 (from 9.1 yesterday, EBL 100ml) No indication for transfusion at this time Monitor with daily CBC Tachycardia Likely due to pain/anemia, infection as above, patient asymptomatic HR 90-115s Preop EKG on 02/11/2025 with sinus tachycardia at rate of 105bpm Continue monitoring Chronic Hyponatremia Na 130-132 Patient notes poor PO intake Hold HCTZ and monitor sodium levels Pre-Diabetes Steroid induced hyperglycemia -> resolved A1C 6.3 BSG elevated likely in setting of IV steroids, has downtrended since steroids dc'd on 03/09 Discontinued SSI, monitor BSG on AM BMP Hypertension Continue home amlodipine, spironolactone Hold HCTZ for low sodium, resume when able Rheumatoid arthritis Hold leflunomide Thank you for this consultation. We will follow the patient with you during their hospital stay. You can reach a member of the [facility] via [email or web address]. Admission and Anticipated Discharge Date Admission Date: February 25, 2025 Subjective Pt was seen laying in bed Denied fevers or chills Discussion of next steps and ID recs Review of Systems Review of Systems: All systems reviewed & are unremarkable except as noted in Subjective Physical Exam Physical Exam: General: Alert, oriented. No acute distress HEENT: NC/AT CV: RRR Resp: Breath sounds clear bilaterally, no increased effort of breathing Abdomen: Soft, nontender Extremities: No edema in lower extremities bilaterally. Results & Data Results & Data Vital Signs (Past 12 Hours) Vital Signs Temp Pulse Resp BP Pulse Ox O2 Del Method 03/11/25 08:00 36.5 C 99 H 18 143/80 H 93 Room Air
--- NOTE | 2025-03-11 15:42 | Infectious Disease Consult ---
<Statement entered by Noe Kiran II, DO - 03/12/25 15:12> I saw and evaluated the patient 03/11/2025. I have reviewed the trainee note and agree. Date of Service March 11, 2025 Telehealth Information I performed this visit using a real-time telehealth connection between my locati on and the patients location ([facility]). After connecting through interactive tele-video, patient was identified by name and date of and/or wristband check.Patient (or authorized healthcare registered representative) was informed that this was a telemedicine visit and it was being conducted confidentially over secure lines. My office door was closed and no one else was present in the room with me.Patient (or authorized healthcare registered representative) provided consent to proceed with the visit, expressed an understanding of privacy and security of the telemedicine visit, and gave permission to have a hospital registered representative in the room in order to assist with the visit and to conduct portions of the visit, as needed. I informed the patient (or authorized healthcare registered representative) that I reviewed their record and presented the opportunity for them to ask any questions regarding the visit today. The patient agreed to participate. Assessment & Plan (1) Spinal epidural abscess: (2) Lumbar compression fracture: Plan 69-year-old female with a complex postoperative course following lumbar deco mpression and fusion surgery. She developed a postoperative spinal epidural abscess with cultures growing E. coli and Morganella, staph epidermidis resistant to oxacillin. She also sustained a fall resulting in an endplate fracture and pedicle fracture, necessitating revision surgery. 1.postoperative spinal epidural 2. Postoperative Complications: Fall resulting in endplate fracture at L4 and pedicle fracture at L5. Revision surgery performed with removal of posterior segmental instrumentation, revision decompression, and kyphoplasty. 1.discontinue ertapenem and Start Ceftriaxone 2 g IV every 24 hours. 2.Initiate Vancomycin per pharmacy dosing guidelines for 6 weeks. 3.Add Rifampin 300 mg orally twice daily for 3 months 4. Monitor CRP every other week and CBC, CMP , vancomycin level every week while being on IV antibiotics. 5. After completion of IV antibiotic, she will need suppressive antibiotic given the hardware in which will be Bactrim, unfortunately no option for staph epidermidis given the sensitivities results. History of Present Illness History of Present Illness 69 year old female past medical history of hypertension, hyperlipidemia, rheumatoid arthritis and lumbar spondylosis with radiculopathy, presented on 02/25/2025 for chronic persistent back in bilateral knee pain after failing course of non operative care and now came for surgical intervention. She underwent 1125 decompression and fusion on 02/25/2025. She was found to have postop spinal epidural abscess, fall with endplate fracture status post washout during revision surgery on 03/07. Patient fell due overnight and 03/05 CT lumbar spine revealed end plate fracture L4 and pedicle fx of L5 on the right, pro mpting revision surgery on 03/07 . POD #3 s/p removal of posterior segmental instrumentation L2 L4-L5, revision decompression with bilateral foraminotomies L4-L5, kyphoplasty L2 L4 and L5 vertebral bodies, revision fusion L4-L5, L5- S1.Epidural space and lumbar fascia OR cultures growing E coli and Morganella, sensitive to Ertapenem which was started on 03/08. Allergies Allergy/AdvReac Type Severity Reaction Status Date / Time ampicillin Allergy Severe Rash Verified 02/25/25 06:53 terbinafine Allergy Severe Diarrhea Verified 02/25/25 06:53 Home Medications Medication Instructions Recorded Confirmed Type amlodipine 5 mg tablet 5 mg PO BID 01/31/25 02/25/25 History ascorbic acid (vitamin C) 500 mg 500 mg PO DAILY 01/31/25 02/25/25 History tablet (Vitamin C) cholecalciferol (vitamin D3) 25 25 mcg PO DAILY 01/31/25 02/25/25 History mcg (1,000 unit) capsule (Vitamin D3) etanercept 50 mg/mL (1 mL) 50 mg subcut WK 01/31/25 02/25/25 History subcutaneous cartridge (Enbrel Mini) hydrochlorothiazide 25 mg tablet 25 mg PO QAM 01/31/25 02/25/25 History leflunomide 10 mg tablet 10 mg PO QAM 01/31/25 02/25/25 History magnesium 200 mg tablet 200 mg PO DAILY 01/31/25 02/25/25 History multivitamin 1 tab PO DAILY 01/31/25 02/25/25 History omega-3 fatty acids 1,000 mg PO DAILY 01/31/25 02/25/25 History potassium chloride 10 mEq 20 meq PO QAM 01/31/25 02/25/25 History tablet,extended release (Klor-Con) spironolactone 25 mg tablet 25 mg PO QAM 01/31/25 02/25/25 History zolpidem 10 mg tablet 10 mg PO HS PRN prn 01/31/25 02/25/25 History oxycodone 5 mg tablet 5 mg PO Q6H PRN pain #30 tabs 02/26/25 Rx tramadol 50 mg tablet 50 mg PO Q6H PRN pain, moderate 02/26/25 Rx #30 tabs aspirin 81 mg tablet 81 mg PO DAILY 02/28/25 02/28/25 History Patient History Medical History History of UTI Rheumatoid arthritis Follows with Dr Ho/RAMANA Sheffield History of DVT (deep vein thrombosis) (2019) BL LE, was on AC x4 months (then discontinued) No issues since Hypertension Surgical History History of colonoscopy History of neuroma removal- right foot History of wisdom tooth extraction History of bunionectomy of both great toes History of tonsillectomy History of cataract surgery R/L History of cardiac cath (~2019) no stents Social History Smoking Status: Never smoker Second Hand Exposure: No; Do You Dip or Chew Tobacco: No; Tobacco Cessation Education Requested by Patient: No Hx Alcohol Use: Yes Hx Substance Use: No Preferred Language: Syrian Communication Ability: Effective Communications Representative Required: No Beliefs That Will Affect Care: None Current Living Situation: Spouse Other Information That Helps Us Care for You: No Feels Safe at Home: Yes Safety Concerns: Feels Safe At This Time Assistive Devices: Cane, Stair Lift, Walker, Wheelchair and Other Review of Systems Negative except mentioned in HPI Physical Exam could not be done as this was a tele visit Results & Data Vital Signs (Past 12 Hours) Vital Signs Temp Pulse Resp BP BP Pulse Ox O2 Del Method 03/11/25 15:16 36.8 C 104 H 20 124/82 94 Room Air 03/11/25 08:00 36.5 C 99 H 18 143/80 H 93 Room Air Laboratory Results Laboratory Results - last 24 hr 03/11/25 06:55 WBC 18.34 H RBC 3.30 L Hgb 8.9 L Hct 27.4 L MCV 83.0 MCH 27.0 MCHC 32.5 RDW Std Deviation 44.2 RDW Coeff of Neto 15.3 H Plt Count 382 MPV 8.8 L Absolute Nucleated RBC 0.06 Nucleated RBC % (auto) 0.3 Sodium 133 L Potassium 4.1 Chloride 100 Carbon Dioxide 28 Anion Gap 5 BUN 20 Creatinine 0.77 Est Cr Clr Drug Dosing 78.8 eGFR 83.97 BUN/Creatinine Ratio 26.0 H Glucose 85 Calcium 8.0 L
[2025-03-11] MEDS ORDERED: VANCOMYCIN CONSULT ACTIVE PRN (17:13)
[2025-03-11] MEDS ORDERED: VANCOMYCIN HCL 1,500 MG in SODIUM CHLORIDE 0.9% 500 ML IV SCH (17:15)
--- NOTE | 2025-03-11 17:48 | Pharmacy Report ---
Pharmacy PK ABX Note - Date of Service March 11, 2025 - Assessment and Plan Assessment 69 year old F receiving IV Vancomycin + Ceftriaxone + Rifampin PO for treatment of spinal epidural abscess growing EColi, Morganella, and Staph epi. Day # 1 of antimicrobial therapy. (Previously treated with Ertapenem). ID Consult. PLAN: Vancomycin * Loading dose: 2500 mg IV x 1 * Maintenance dose: 750 mg IV every 12 hours * Regimen is predicted to achieve target AUC/BRENDAN of 400-600 mg/L.hr * Random level ordered for: 03/12/25 Ceftriaxone 2g IV Q12H for [employer] infection Rifampin 300mg PO BID x 3 months Pharmacy will continue to follow and will adjust dose/frequency as necessary. Thank you. Pharmacy has transitioned to AUC monitoring for vancomycin. AUC/BRENDAN is the preferred PK/PD target and is associated with decreased risk of nephrotoxicity compared to traditional trough targets.
[2025-03-11] MEDS: cefTRIAXone SODIUM 2,000 MG/50 ML BAG IV SCH (17:57)
[2025-03-11] MEDS: VANCOMYCIN HCL 2,500 MG in SODIUM CHLORIDE 0.9% 500 ML IV ONE (18:44)
[2025-03-12] MEDS: VANCOMYCIN 750 MG in SODIUM CHLORIDE 0.9% 250 ML IV SCH (05:08)
[2025-03-12] MEDS: OPTIRAY 320 125ml IV ONE (09:36)
--- NOTE | 2025-03-12 09:54 | CT Scan Report ---
CT angio chest PE protocol CT DOSE: 874.03 mGy.cm HISTORY: PE. TECHNIQUE: Multiple CTA images of the chest were obtained after the intravenous administration of 120 ml Optiray. Coronal and sagittal MIPS were obtained from the axial data set and were submitted for review. All measurements were obtained according to NASCET criteria. A dose lowering technique was u tilized adhering to the principles of ALARA. COMPARISON STUDY: None FINDINGS: There is no pulmonary consolidation or pleural effusion. No pneumothorax. No enlarged adeno kole. No pericardial effusion. No thoracic aortic dissection or aneurysm. There are multiple small b ilateral pulmonary emboli involving all lung lobes with mild clot burden. RV to LV ratio is less than 1. No acute osseous findings. IMPRESSION: Multiple scattered small acute pulmonary emboli with mild clot burden. No evidence of rig ht heart strain seen. ACT 112: Positive. There are findings on this exam that require communication between the performing entity and the patient following Patient Test Result Information Act ([place] Act 112) guidelines. The above report was generated using voice recognition software. It may contain grammatical, syntax o r spelling errors. Electronically signed by: Sina Weber M.D. 03/12/2025 9:53 AM
--- NOTE | 2025-03-12 10:48 | Hospitalist Progress Note ---
Date of Service March 12, 2025 Assessment & Plan (1) Acute blood loss anemia: (2) Other spondylosis with radiculopathy, lumbar region: (3) Tachycardia: (4) Leukocytosis: (5) Hyponatremia: (6) Hypertension: (7) Hyperlipidemia: (8) Rheumatoid arthritis: Plan This is a 69 year old female with PMH significant for hypertension, hyperlipidemia, rheumatoid arthritis, palpitations, history of bilateral pulmonary emboli, and lumbar spondylosis with radiculopathy who underwent L1-L5 decompression and fusion on 02/25/[address] Nova. We have been consulted for post operative medical management. Spondylosis with radiculopathy, lumbar region Post-op spinal epidural abscess s/p washout during revision surgery on 03/07 L1-L5 decompression and fusion by Dr. Nova on February 25 complicated by fluid collection, fall with end plate fractures -Post-op lumbar Spine MRI 03/04 due to ongoing BLE weakness and pain * 15x5.1x3.1 cm fluid collection R aspect of subcu fat extending from level L1 vertebra down to level opposite L5 vertebra -Patient fell due overnight and 03/05 CT lumbar spine revealed end plate fracture L4 and pedicle fx of L5 on the right, prompting revision surgery on 03/07 -POD #3 s/p removal of posterior segmental instrumentation L2 L4-L5, revision decompression with bilateral foraminotomies L4-L5, kyphoplasty L2 L4 and L5 vertebral bodies, revision fusion L4-L5, L5-S1 -Epidural space and lumbar fascia OR cultures growing E coli and Morganella, sensitive to Ertapenem which was started on 03/08 -Follow blood cultures -ID consulted for further recs given duration of abx, likely to need for suppressive therapy given hardware -recommended Rocephin 2g q24hrs, Vancomycin for 6 weeks and po rifampin 300mg BID x 3 months -WBC downtrending from 30 -> 24, remains afebrile -Dr. Nova recommending continued PT/OT and discharge to acute rehab this coming week -Continue incentive spirometry, encourage movement as able Pulmonary Emboli Pt with hypoxia and tachycardia on 03/12, requiring 2-3L of oxygen CTA chest obtained which noted pulmonary emboli bilaterally throughout the lungs EKG noting sinus tachycardia Echo ordered to confirm no heart strain IV heparin ordered Continue to monitor on telemetry Acute blood loss anemia 2/2 surgery as above Hgb stable 8.5 (from 9.1 yesterday, EBL 100ml) No indication for transfusion at this time Monitor while on IV heparin Chronic Hyponatremia Na 130-132 Patient notes poor PO intake Hold HCTZ and monitor sodium levels Pre-Diabetes Steroid induced hyperglycemia -> resolved A1C 6.3 BSG elevated likely in setting of IV steroids, has downtrended since steroids dc'd on 03/09 Discontinued SSI, monitor BSG on AM BMP Hypertension Continue home amlodipine, spironolactone Hold HCTZ for low sodium, resume when able Rheumatoid arthritis Hold leflunomide Thank you for this consultation. We will follow the patient with you during their hospital stay. You can reach a member of the [facility] Hospitalist Team 18/04 via [employer]. Admission and Anticipated Discharge Date Admission Date: February 25, 2025 Subjective Pt was seen in the AM Notified by nursing that she had an increased oxygen requirement and was tachycardic. CTA chest revealing pulmonary emboli Pt agreeable to getting up and into the chair as tolerated, nursing notes she is a 2-3 person assist. Pt notes prior history of pulmonary emboli Review of Systems Review of Systems: All systems reviewed & are unremarkable except as noted in Subjective Physical Exam Physical Exam: General: Alert, oriented. No acute distress HEENT: NC/AT, NC in nares CV: RRR Resp: Breath sounds clear bilaterally, no increased effort of breathing Abdomen: Soft, nontender Extremities: No edema in lower extremities bilaterally. Results & Data Results & Data Vital Signs (Past 12 Hours) Vital Signs Temp Pulse Resp BP Pulse Ox O2 Del Method O2 Flow Rate 03/12/25 07:40 96 Nasal Cannula 3 03/12/25 07:12 37.3 C 101 H 19 135/80 87 L Room Air
[2025-03-12 11:01] LABS: Hematocrit (blood only) 25.6 % (37.0-47.0); Hemoglobin 8.5 g/dl (12.0-16.0); Immature Granulocytes # (auto) 0.55 K/uL (0.01-0.20); Immature Granulocytes % (auto) 2.7 %; Mean Corpuscular Hemoglobin 27.5 pg (25.0-34.0); Mean Corpuscular Volume 82.8 fL (80.0-100.0); Platelet Count 329 K/uL (130-400); RDW Standard Deviation 43.9 fL (36.4-46.3); Red Blood Count 3.09 M/uL (4.20-5.40); White Blood Count 20.10 K/ul (4.8-10.8)
--- NOTE | 2025-03-12 11:10 | XRay Report ---
XR lumbar spine 2-3V CLINICAL HISTORY: post op COMPARISON STUDY: 03/07/2025 FINDINGS: Posterior metallic fusion L2-S1 shows no hardware complication. No fracture or subluxation. Postoperative drain is present. IMPRESSION: No acute findings. ACT 112: Negative or not required by law. Electronically signed by: Sina Weber M.D. 03/12/2025 11:08 AM
[2025-03-12 11:11] LABS: Alanine Aminotransferase 21.0 U/L (7-52); Albumin Globulin Ratio 1.0 (0.9-2); Alkaline Phosphatase 234.0 U/L (34-104); Anion Gap 6.0 (3-11); Bilirubin,Total 0.8 mg/dl (0.2-1.0); Blood Urea Nitrogen 16.0 mg/dl (6-23); Calcium 7.9 mg/dl (8.6-10.3); Carbon Dioxide 24.0 mmol/L (21-32); Chloride 99.0 mmol/L (98-107); Creatinine Clr Calc Pharmacy 84.3 ml/min; Globulin 2.4 gm/dl (2.5-4.0); Glucose 108.0 mg/dl (70-99(Fasting)); Magnesium 1.9 mg/dl (1.7-2.4); Potassium 4.4 mmol/L (3.5-5.1); Sodium 129.0 mmol/L (136-145); Total Protein 4.9 gm/dl (6.0-8.3)
[2025-03-12 11:23] LABS: INR 1.0 (0.9-1.1); Partial Thromboplastin Time 21 Seconds (21-31); Prothrombin Time 10.4 Seconds (9.0-12.0)
[2025-03-12] MEDS: Heparin IV Adult Wt-Based Low-Dose *NO* INITIAL Bolus Protocol IV STA (11:31)
[2025-03-12] MEDS: HEPARIN 25000 UNIT/500 ML D5W 25,000 UNITS/500 ML BAG IV SCH (11:40)
--- NOTE | 2025-03-12 13:28 | Pharmacy Report ---
Pharmacy PK ABX Note - Date of Service March 12, 2025 - Assessment and Plan Assessment 03/12: * Random vancomycin level this AM was ~17 mcg/ml - will change vancomycin dosing to Q24 hour dosing as patient to be on medication x 6 weeks * Will start vancomycin 1750 mg iv q 24 hours. This dosing is associated with goal AUC/BRENDAN ~530. * Plan to repeat level in next 2-3 days to ensure stable dosing. 03/11 * 69 year old F receiving IV Vancomycin + Ceftriaxone + Rifampin PO for treatment of spinal epidural abscess growing EColi, Morganella, and Staph epi. * Day # 1 of antimicrobial therapy. (Previously treated with Ertapenem). ID Consult. 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 Thank you. Pharmacy has transitioned to AUC monitoring for vancomycin. AUC/BRENDAN is the preferred PK/PD target and is associated with decreased risk of nephrotoxicity compared to traditional trough targets.
[2025-03-12] MEDS ORDERED: VANCOMYCIN HCL 1,500 MG in SODIUM CHLORIDE 0.9% 500 ML IV SCH (14:00)
--- NOTE | 2025-03-12 14:36 | Orthopedic Progress Note ---
Date of Service March 12, 2025 Assessment & Plan (1) Lumbar compression fracture: Plan: Patient has been diagnosed with pulmonary emboli. She will be transferred to telemetry per medicine.-Continue to encourage her to get out of bed and ambulate and sit into a chair as tolerated. I will maintain the EMILY drain at least another 24 hours. Admission and Anticipated Discharge Date Admission Date: February 25, 2025 Subjective Back pain is controlled. Patient states she was out of bed twice today. She is denying any shortness of breath at this time. Physical Exam Physical Exam: On exam she continues to demonstrate significant weakness of bilateral dorsiflexion. Sensory is intact to lower extremities. Results & Data Vital Signs (Past 12 Hours) Vital Signs Temp Pulse Resp BP Pulse Ox O2 Del Method O2 Flow Rate 03/12/25 07:40 96 Nasal Cannula 3 03/12/25 07:12 37.3 C 101 H 19 135/80 87 L Room Air Queries Orthopedic Spine Acute Posthemorrhagic Anemia: Yes Obesity: Yes 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
[2025-03-12] MEDS: VANCOMYCIN HCL 1,750 MG in SODIUM CHLORIDE 0.9% 500 ML IV SCH (15:21)
[2025-03-12 18:27] LABS: ANTI-Xa, UFH(UnfractionatedHep 0.33 IU/ml (0.3-0.7)
--- NOTE | 2025-03-12 19:05 | Ultrasound Report ---
EXAMINATION: Extremity ultrasound lower bilateral CLINICAL HISTORY: History of DVT, no longer on blood thinners. PRIORS: None TECHNIQUE: Ultrasound interrogation of the bilateral deep venous structures was performed with grayscale, color Doppler, compression and augmentation. FINDINGS: Right: Nonocclusive thrombus present in the popliteal vein, posterior tibial and peroneus veins. The remaining venous structures including the femoral vein are patent. Left: Nonocclusive thrombus present in the popliteal vein, possibly chronic given the appearance and history. Nonocclusive acute deep venous thrombosis present in the posterior tibial veins. Nearly occlusive thrombus present within the peroneus veins. Femoral vein is patent. IMPRESSION: Bilateral deep venous thrombosis in the lower extremities. Electronically signed by Nancy Chung 03-12-2025 7:05 PM
--- NOTE | 2025-03-12 22:17 | Electrocardiogram Report ---
Test Reason : Blood Pressure : */* mmHG Vent. Rate : 114 BPM Atrial Rate : 114 BPM P-R Int : 126 ms QRS Dur : 78 ms QT Int : 320 ms P-R-T Axes : 48 -23 47 degrees QTcB Int : 441 ms Sinus tachycardia Otherwise normal ECG When compared with ECG of 27-Feb-2025 11:15, Premature ventricular complexes are no longer Present Confirmed by Daniel Quintanilla ([id number]) on 03/12/2025 10:17:15 PM Referred By: Adriel Nova Confirmed By: Daniel Quintanilla
[2025-03-12] MEDS: CLOTRIMAZOLE 1% CR 15 GM TUBE EXT SCH (22:22)
[2025-03-13 00:34] LABS: ANTI-Xa, UFH(UnfractionatedHep 0.36 IU/ml (0.3-0.7)
[2025-03-13 06:36] LABS: Hematocrit (blood only) 24.7 % (37.0-47.0); Hemoglobin 8.2 g/dl (12.0-16.0); Immature Granulocytes # (auto) 0.28 K/uL (0.01-0.20); Immature Granulocytes % (auto) 2.1 %; Mean Corpuscular Hemoglobin 27.2 pg (25.0-34.0); Mean Corpuscular Volume 82.1 fL (80.0-100.0); Platelet Count 303 K/uL (130-400); RDW Standard Deviation 44.2 fL (36.4-46.3); Red Blood Count 3.01 M/uL (4.20-5.40); White Blood Count 13.36 K/ul (4.8-10.8)
[2025-03-13 06:54] LABS: Alanine Aminotransferase 20.0 U/L (7-52); Albumin Globulin Ratio 1.2 (0.9-2); Alkaline Phosphatase 240.0 U/L (34-104); Anion Gap 7.0 (3-11); Bilirubin,Total 0.8 mg/dl (0.2-1.0); Blood Urea Nitrogen 13.0 mg/dl (6-23); Calcium 8.0 mg/dl (8.6-10.3); Carbon Dioxide 23.0 mmol/L (21-32); Chloride 100.0 mmol/L (98-107); Creatinine Clr Calc Pharmacy 87.9 ml/min; Globulin 2.2 gm/dl (2.5-4.0); Glucose 120.0 mg/dl (70-99(Fasting)); Magnesium 1.9 mg/dl (1.7-2.4); Potassium 3.8 mmol/L (3.5-5.1); Sodium 130.0 mmol/L (136-145); Total Protein 4.8 gm/dl (6.0-8.3)
[2025-03-13 07:10] LABS: ANTI-Xa, UFH(UnfractionatedHep 0.37 IU/ml (0.3-0.7)
--- NOTE | 2025-03-13 11:30 | Orthopedic Progress Note ---
Date of Service March 13, 2025 Assessment & Plan (1) Spinal epidural abscess: Plan: At this time organ to continue to encourage her to get out of bed. Stand for as long as possible and try to eat all meals in the chair. Emphasized to the patient that she must keep moving she will continue to lose strength. She is having issues with hallucinations. I will hold her oxycodone and trial tramadol. Admission and Anticipated Discharge Date Admission Date: February 25, 2025 Subjective Patient's struggling with bed to chair but continues to try. Denies any shortness of breath. Physical Exam Physical Exam: On exam patient is in bed. She does appear comfortable. Continues to demonstrate significant bilateral lower extremity strength deficits. Results & Data Vital Signs (Past 12 Hours) Vital Signs Temp Pulse Pulse Resp BP Pulse Ox O2 Del Method 03/13/25 11:25 36.9 C 103 H 16 130/77 95 Room Air 03/13/25 08:22 36.5 C 92 H 18 160/76 H 92 Nasal Cannula 03/13/25 07:53 Nasal Cannula 03/13/25 06:28 90 03/13/25 04:27 36.6 C 102 H 20 147/84 H 95 Nasal Cannula 03/13/25 00:24 37.0 C 101 H 18 126/77 92 Nasal Cannula 03/12/25 23:54 Room Air O2 Flow Rate 03/13/25 11:25 03/13/25 08:22 2 03/13/25 07:53 3 03/13/25 06:28 03/13/25 04:27 2 03/13/25 00:24 4 03/12/25 23:54 Queries Orthopedic Spine Acute Posthemorrhagic Anemia: Yes Obesity: Yes 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
--- NOTE | 2025-03-13 15:09 | Hospitalist Progress Note ---
Date of Service March 13, 2025 Assessment & Plan (1) Acute blood loss anemia: (2) Other spondylosis with radiculopathy, lumbar region: (3) Tachycardia: (4) Leukocytosis: (5) Hyponatremia: (6) Hypertension: (7) Hyperlipidemia: (8) Rheumatoid arthritis: Plan Per previous hospitalist w/ addendum: This is a 69 year old female with PMH significant for hypertension, hyperlipidemia, rheumatoid arthritis, palpitations, history of bilateral pulmonary emboli, and lumbar spondylosis with radiculopathy who underwent L1-L5 decompression and fusion on 02/25/[address] Nova. We have been consulted for post operative medical management. Spondylosis with radiculopathy, lumbar region Post-op spinal epidural abscess s/p washout during revision surgery on 03/07 L1-L5 decompression and fusion by Dr. Nova on February 25 complicated by fluid collection, fall with end plate fractures -Post-op lumbar Spine MRI 03/04 due to ongoing BLE weakness and pain * 15x5.1x3.1 cm fluid collection R aspect of subcu fat extending from level L1 vertebra down to level opposite L5 vertebra -Patient fell due overnight and 03/05 CT lumbar spine revealed end plate fracture L4 and pedicle fx of L5 on the right, prompting revision surgery on 03/07 -S/p removal of posterior segmental instrumentation L2 L4-L5, revision decompression with bilateral foraminotomies L4-L5, kyphoplasty L2 L4 and L5 shruthi tebral bodies, revision fusion L4-L5, L5-S1 -Epidural space and lumbar fascia OR cultures growing E coli and Morganella, sensitive to Ertapenem which was started on 03/08 - cultx also grows Staph epi and Corynebacterium -Follow blood cultures -ID consulted for further recs given duration of abx, likely to need for suppres sive therapy given hardware -recommended Rocephin 2g q24hrs, Vancomycin for 6 weeks and po rifampin 300mg BID x 3 months -WBC downtrending from 30 -> 24 -> 13K, remains afebrile -Dr. Nova recommending continued PT/OT and discharge to acute rehab -Continue incentive spirometry, encourage movement as able Pulmonary Emboli Pt with hypoxia and tachycardia on 03/12, requiring 2-3L of oxygen CTA chest obtained which noted pulmonary emboli bilaterally throughout the lungs EKG noting sinus tachycardia Echo ordered to confirm no heart strain IV heparin ordered Continue to monitor on telemetry Acute blood loss anemia 2/2 surgery as above Hgb stable 8.5 (from 9.1 yesterday, EBL 100ml) No indication for transfusion at this time Monitor while on IV heparin Chronic Hyponatremia Na 130-132 Patient notes poor PO intake Hold HCTZ and monitor sodium levels Pre-Diabetes Steroid induced hyperglycemia -> resolved A1C 6.3 BSG elevated likely in setting of IV steroids, has downtrended since steroids dc'd on 03/09 Discontinued SSI, monitor BSG on AM BMP Hypertension Continue home amlodipine, spironolactone Hold HCTZ for low sodium, resume when able Rheumatoid arthritis Hold leflunomide Thank you for this consultation. We will follow the patient with you during their hospital stay. You can reach a member of the [facility] Hospitalist Team 18/04 via [employer]. Admission and Anticipated Discharge Date Admission Date: February 25, 2025 Subjective Pt seen in follow up Hx of spinal surgery w/ complication/ abscess, required revision ID consulted - pt will require 6 weeks of abx Pt currently lying in bed in NAD Denies any fever, chills, chest pain, shortness of breath, abd.pain, n/v Reports difficulty moving her legs and requiring a lot of help w/ movements Review of Systems Review of Systems: All systems reviewed & are unremarkable except as noted in Subjective Physical Exam Physical Exam: General: Alert, oriented. No acute distress HEENT: NC/AT, NC in nares CV: RRR Resp: Breath sounds clear bilaterally, no increased effort of breathing Abdomen: Soft, nontender Extremities: No edema in lower extremities bilaterally. Results & Data Results & Data Vital Signs (Past 12 Hours) Vital Signs Temp Pulse Pulse Resp BP Pulse Ox O2 Del Method 03/13/25 13:00 106 H 03/13/25 11:25 36.9 C 103 H 16 130/77 95 Room Air 03/13/25 08:22 36.5 C 92 H 18 160/76 H 92 Nasal Cannula 03/13/25 07:53 Nasal Cannula 03/13/25 06:28 90 03/13/25 04:27 36.6 C 102 H 20 147/84 H 95 Nasal Cannula O2 Flow Rate 03/13/25 13:00 03/13/25 11:25 03/13/25 08:22 2 0618/25 07:53 3 03/13/25 06:28 03/13/25 04:27 2 Laboratory Results 03/13/25 03/12/25 03/12/25 Range/Units 06:07 23:45 17:45 WBC 13.36 H (4.8-10.8) K/ul RBC 3.01 L (4.20-5.40) M/uL Hgb 8.2 L (12.0-16.0) g/dl Hct 24.7 L (37.0-47.0) % MCV 82.1 (80.0-100.0) fL MCH 27.2 (25.0-34.0) pg MCHC 33.2 (32.0-36.0) g/dL RDW Std Deviation 44.2 (36.4-46.3) fL RDW Coeff of Neto 15.8 H (11.5-14.5) % Plt Count 303 (130-400) K/uL MPV 9.7 (9.4-12.4) fL Immature Gran % (Auto) 2.1 % Neut % (Auto) 71.3 % Lymph % (Auto) 14.7 % Blanco % (Auto) 8.8 % Eos % (Auto) 3.1 % Baso % (Auto) 0.0 % Neut # (Auto) 9.54 H (1.40-6.50) K/uL Lymph # (Auto) 1.96 (1.20-3.40) K/uL Blanco # (Auto) 1.17 H (0.11-0.59) K/uL Eos # (Auto) 0.41 (0.00-0.50) K/uL Baso # (Auto) 0.00 (0.00-0.20) K/uL Immature Gran # (Auto) 0.28 H (0.01-0.20) K/uL Absolute Nucleated RBC 0.02 (0.00-0.12) K/uL Nucleated RBC % (auto) 0.1 % Heparin Anti-Xa, Unfract 0.37 0.36 0.33 (0.3-0.7) IU/ml Sodium 130 L (136-145) mmol/L Potassium 3.8 (3.5-5.1) mmol/L Chloride 100 (98-107) mmol/L Carbon Dioxide 23 (21-32) mmol/L Anion Gap 7 (3-11) BUN 13 (6-23) mg/dl Creatinine 0.69 (0.6-1.2) mg/dl Est Cr Clr Drug Dosing 87.9 ml/min eGFR 94.47 BUN/Creatinine Ratio 18.8 (10-20) Glucose 120 H (70-99(Fasting)) mg/dl Calcium 8.0 L (8.6-10.3) mg/dl Phosphorus 3.2 (2.5-4.9) mg/dl Magnesium 1.9 (1.7-2.4) mg/dl Total Bilirubin 0.8 (0.2-1.0) mg/dl AST 24 (13-39) U/L ALT 20 (7-52) U/L Alkaline Phosphatase 240 H (34-104) U/L Total Protein 4.8 L (6.0-8.3) gm/dl Albumin 2.6 L (3.4-5.0) gm/dl Globulin 2.2 L (2.5-4.0) gm/dl Albumin/Globulin Ratio 1.2 (0.9-2) Medications Administered Current Inpatient Medications Acetaminophen (Acetaminophen 500 Mg Tab) 1,000 mg PO Q8H PATRICK Stop: 04/02/25 08:59 Last Admin: 03/13/25 08:40 Dose: 1,000 mg Al Hydrox/Mg Hydrox/Simethicone (Aluminum/Magnesium Susp 30 Ml Udc) 30 ml PO Q6H PRN PRN Reason: Dyspepsia Stop: 03/27/25 14:53 Last Admin: 03/10/25 18:41 Dose: 30 ml Amlodipine Besylate (Amlodipine Besylate 5 Mg Tab) 5 mg PO BID PATRICK Stop: 03/27/25 20:59 Last Admin: 03/13/25 08:41 Dose: 5 mg Ascorbic Acid (Ascorbic Acid 500 Mg Tab) 500 mg PO DAILY PATRICK Stop: 03/28/25 08:59 Last Admin: 03/13/25 08:42 Dose: 500 mg Bisacodyl (Bisacodyl 10 Mg Supp) 10 mg VA DAILY PRN PRN Reason: Constipation Stop: 03/27/25 14:53 Clotrimazole (Clotrimazole 1% Cr 15 Gm Tube) 1 appln EXT BID PATRICK Stop: 04/11/25 20:59 Last Admin: 03/13/25 08:40 Dose: 1 appln Cyclobenzaprine HCl (Cyclobenzaprine Hcl 5 Mg Tab) 5 mg PO TID PRN PRN Reason: muscle spasms Stop: 04/02/25 09:29 Last Admin: 03/13/25 08:42 Dose: 5 mg Dextrose (Dextrose 50% 50 Ml Syringe) 25 - 50 ml IV UD PRN; Protocol PRN Reason: Hypoglycemia Protocol Stop: 04/04/25 10:53 Diphenhydramine HCl (Diphenhydramine Capsule 25 Mg Cap) 25 mg PO Q6H PRN PRN Reason: Allergic Rhinitis/Insomnia Stop: 03/27/25 14:53 Last Admin: 03/13/25 01:51 Dose: 25 mg Famotidine (Famotidine 20 Mg Tab) 20 mg PO Q12H PRN PRN Reason: Dyspepsia Stop: 03/27/25 14:53 Last Admin: 03/13/25 08:41 Dose: 20 mg Glucagon (Glucagon For Inj 1 Mg Vial) 1 mg SQ UD PRN; Protocol PRN Reason: Hypoglycemia Protocol Stop: 04/04/25 10:53 Glucose (Glucose 40% Gel 15 Gm Tube) 15 - 30 gm PO UD PRN; Protocol PRN Reason: Hypoglycemia Protocol Stop: 04/04/25 10:53 Glucose (Glucose 10 Tab/Tube) 4 - 8 tab PO UD PRN; Protocol PRN Reason: Hypoglycemia Protocol Stop: 04/04/25 10:53 Hydroxyzine HCl (Hydroxyzine Hcl 25 Mg Tab) 25 mg PO Q8H PRN PRN Reason: Anxiety Stop: 03/27/25 14:53 Last Admin: 03/13/25 08:40 Dose: 25 mg Promethazine HCl (Phenergan) 12.5 mg in 50.5 mls @ 202 mls/hr IV Q6H PRN PRN Reason: Nausea And Vomiting Stop: 03/27/25 14:53 Ceftriaxone Sodium (Rocephin) 2,000 mg in 50 mls @ 100 mls/hr IV Q12H PATRICK Stop: 03/21/25 17:59 Last Infusion: 03/13/25 05:49 Dose: Infused Heparin Sodium/Dextrose (Heparin 40200 Unit/500 Ml D5w) 25,000 units in 500 mls @ 17 mls/hr IV .Q24H [facility]; Protocol Stop: 04/11/25 10:29 Last Admin: 03/13/25 12:04 Dose: 850 units/hr, 17 mls/hr Vancomycin HCl 1,750 mg/ (Sodium Chloride) 535 mls @ 200 mls/hr IV Q24H [facility] Stop: 03/22/25 13:59 Last Admin: 03/13/25 13:16 Dose: 200 mls/hr Influenza Virus Vaccine Quadrival (Do Not Administer Flu Vaccine) 1 each N/A PRN PRN PRN Reason: Notification Stop: 03/27/25 14:53 Lidocaine (Lidocaine 5% 1 Patch) 1 patch TD QAM [facility] Stop: 04/02/25 09:59 Last Admin: 03/13/25 08:41 Dose: 1 patch Magnesium Hydroxide (Magnesium Hydroxide Susp 30 Ml Udc) 30 ml PO Q24H PRN PRN Reason: Constipation Stop: 03/27/25 14:53 Last Admin: 03/08/25 21:05 Dose: 30 ml Magnesium Oxide (Magnesium Oxide 400 Mg Tab) 400 mg PO DAILY [facility] Stop: 03/28/25 08:59 Last Admin: 03/13/25 08:42 Dose: 400 mg Metoclopramide HCl (Metoclopramide Hcl Inj 5 Mg/Ml 2 Ml Vial) 10 mg IV Q6H PRN PRN Reason: Nausea &/or Vomiting Stop: 03/27/25 14:53 Miscellaneous (Remove Lidoderm Patch) 1 each N/A DAILY@2100 [facility] Stop: 04/02/25 20:59 Last Admin: 03/12/25 20:58 Dose: 1 each Miscellaneous (Carbohydrates For Hypoglycemia ) 15 - 30 gm PO UD PRN PRN Reason: Hypoglycemia Protocol Stop: 04/04/25 10:53 Miscellaneous Information (Vancomycin Consult Active) 1 each N/A UD PRN PRN Reason: Consult Stop: 04/10/25 17:12 Multivitamins (Multivitamin Tab) 1 tab PO DAILY [facility] Stop: 03/28/25 08:59 Last Admin: 03/13/25 08:42 Dose: 1 tab Naloxone HCl (Naloxone Hcl 0.4 Mg/1 Ml Vial/Carp) 0.1 mg IV Q5M PRN PRN Reason: Oversedation/Resp depression Stop: 03/27/25 14:53 Ondansetron HCl (Ondansetron Inj 2 Mg/Ml 2 Ml Vial) 4 mg IV Q6H PRN PRN Reason: Nausea &/or Vomiting Stop: 03/27/25 14:53 Ondansetron HCl (Ondansetron 4 Mg Od Tab) 4 mg PO Q6H PRN PRN Reason: Nausea Stop: 03/27/25 14:53 Last Admin: 02/26/25 18:26 Dose: 4 mg Pantoprazole Sodium (Pantoprazole 40 Mg Tab) 40 mg PO DAILYBL [facility] Stop: 03/30/25 10:29 Last Admin: 03/13/25 08:41 Dose: 40 mg Pneumococcal Polyvalent Vaccine (Do Not Administer Pneumococcal Vaccine) 1 each N/A PRN PRN PRN Reason: Notification Stop: 03/27/25 14:53 Polyethylene Glycol (Polyethylene (Miralax) 17 Gm Pack) 17 gm PO DAILY PATRICK Stop: 04/09/25 08:59 Last Admin: 03/13/25 08:42 Dose: 17 gm Rifampin (Rifampin 300 Mg Capsule) 300 mg PO BID [facility] Stop: 04/10/25 20:59 Last Admin: 03/13/25 08:41 Dose: 300 mg Senna/Docusate Sodium (Docusate Sodium/Senna 50/8.6mg Tab) 2 tab PO HS PATRICK Stop: 03/27/25 20:59 Last Admin: 03/12/25 21:01 Dose: 2 tab Sodium Biphosphate/Sodium Phosphate (Sod Phosphate/Sod Biphosphate Enema 132 Ml Btl) 132 ml VA ONE PRN PRN Reason: Constipation Stop: 03/27/25 14:53 Spironolactone (Spironolactone 25 Mg Tab) 25 mg PO QAM PATRICK Stop: 03/31/25 08:59 Last Admin: 03/13/25 08:41 Dose: 25 mg Tramadol HCl (Tramadol Hcl 50 Mg Tablet) 50 mg PO Q4H PRN PRN Reason: Pain Stop: 04/12/25 11:27 Last Admin: 03/13/25 13:16 Dose: 50 mg Vitamin D (Cholecalciferol 25 Mcg (1000 Units) Tab) 25 mcg PO DAILY PATRICK Stop: 03/28/25 08:59 Last Admin: 03/13/25 08:42 Dose: 25 mcg Zolpidem Tartrate (Zolpidem Tartrate 5 Mg Tab) 10 mg PO HS PRN PRN Reason: Sleep Stop: 03/27/25 14:59 Last Admin: 03/09/25 21:35 Dose: 10 mg
[2025-03-13] MEDS: POTASSIUM CHLORIDE CRTAB 20 MEQ TABCR PO STA (23:07)
[2025-03-13] MEDS: MAGNESIUM SULFATE / D5W 1 GM/100 ML BAG IV ONE (23:09)
[2025-03-14] MEDS ORDERED: PHA DELIRIUM CONSULT PRN (00:52)
[2025-03-14 04:34] LABS: Hematocrit (blood only) 23.5 % (37.0-47.0); Hemoglobin 7.8 g/dl (12.0-16.0); Immature Granulocytes # (auto) 0.16 K/uL (0.01-0.20); Immature Granulocytes % (auto) 1.2 %; Mean Corpuscular Hemoglobin 27.1 pg (25.0-34.0); Mean Corpuscular Volume 81.6 fL (80.0-100.0); Platelet Count 287 K/uL (130-400); RDW Standard Deviation 45.1 fL (36.4-46.3); Red Blood Count 2.88 M/uL (4.20-5.40); White Blood Count 13.53 K/ul (4.8-10.8)
[2025-03-14 04:49] LABS: Alanine Aminotransferase 18.0 U/L (7-52); Albumin Globulin Ratio 1.1 (0.9-2); Alkaline Phosphatase 265.0 U/L (34-104); Anion Gap 8.0 (3-11); Bilirubin,Total 1.0 mg/dl (0.2-1.0); Blood Urea Nitrogen 11.0 mg/dl (6-23); Calcium 8.1 mg/dl (8.6-10.3); Carbon Dioxide 23.0 mmol/L (21-32); Chloride 98.0 mmol/L (98-107); Creatinine Clr Calc Pharmacy 91.9 ml/min; Globulin 2.4 gm/dl (2.5-4.0); Glucose 169.0 mg/dl (70-99(Fasting)); Magnesium 1.8 mg/dl (1.7-2.4); Potassium 3.9 mmol/L (3.5-5.1); Sodium 129.0 mmol/L (136-145); Total Protein 5.0 gm/dl (6.0-8.3)
[2025-03-14 04:55] LABS: Polychromasia 1+
[2025-03-14 05:01] LABS: ANTI-Xa, UFH(UnfractionatedHep 0.28 IU/ml (0.3-0.7)
--- NOTE | 2025-03-14 07:54 | Pharmacy Report ---
Pharmacy PK ABX Note - Date of Service March 14, 2025 - Assessment and Plan Assessment 03/14: * Reviewed random vancomycin level. Predicting therapeutic AUC/BRENDAN, continue current regimen. 03/12: * Random vancomycin level this AM was ~17 mcg/ml - will change vancomycin dosing to Q24 hour dosing as patient to be on medication x 6 weeks * Will start vancomycin 1750 mg iv q 24 hours. This dosing is associated with goal AUC/BRENDAN ~530. * Plan to repeat level in next 2-3 days to ensure stable dosing. 03/11 * 69 year old F receiving IV Vancomycin + Ceftriaxone + Rifampin PO for treatment of spinal epidural abscess growing EColi, Morganella, and Staph epi. * Day # 1 of antimicrobial therapy. (Previously treated with Ertapenem). ID Consult. PLAN: Vancomycin * Change to 1750 mg iv q 24 hours Ceftriaxone 2g IV Q12H for [employer] infection Rifampin 300mg PO BID x 3 months Pharmacy will continue to follow and will adjust dose/frequency as necessary. Thank you. Pharmacy has transitioned to AUC monitoring for vancomycin. AUC/BRENDAN is the preferred PK/PD target and is associated with decreased risk of nephrotoxicity compared to traditional trough targets.
--- NOTE | 2025-03-14 08:29 | Orthopedic Progress Note ---
Date of Service March 14, 2025 Assessment & Plan (1) Spinal epidural abscess: Plan: Continue antibiotics per infectious disease recommendations. She will need a PICC line. Ultimate plan is discharge to rehab once medically stable. Continue to encourage ambulation Admission and Anticipated Discharge Date Admission Date: February 25, 2025 Subjective Nga is status post revision decompression fusion secondary to hardware failure with subsequent lumbar abscess. Infectious disease has been consulted and recommendations made. PICC line not placed yet. No shortness of breath. She is currently on heparin for new PE. Pain is better controlled. Review of Systems Review of Systems: All systems reviewed & are unremarkable except as noted in HPI & below Physical Exam Physical Exam: She seen in conjunction with her Alert and oriented x 3 She sitting in a chair in no acute distress Strength unchanged bilateral lower extremities Results & Data Vital Signs (Past 12 Hours) Vital Signs Temp Pulse Pulse Resp BP BP Pulse Ox 03/14/25 07:41 36.8 C 100 H 18 146/80 H 95 03/14/25 07:33 03/14/25 05:45 98 H 03/14/25 02:39 37.0 C 105 H 18 170/97 H 94 03/13/25 23:36 36.6 C 105 H 20 149/76 H 93 03/13/25 22:50 03/13/25 22:12 103 H O2 Del Method O2 Flow Rate 03/14/25 07:41 Nasal Cannula 2 03/14/25 07:33 Nasal Cannula 3 03/14/25 05:45 03/14/25 02:39 Nasal Cannula 2 03/13/25 23:36 Nasal Cannula 2 03/13/25 22:50 2 03/13/25 22:12 Queries Orthopedic Spine Acute Posthemorrhagic Anemia: Yes Obesity: Yes 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
[2025-03-14] MEDS: ADVANCED PROBIOTIC 625 MG CAPSULE PO SCH (10:11)
--- NOTE | 2025-03-14 10:24 | Hospitalist Progress Note ---
Date of Service March 14, 2025 Assessment & Plan (1) Acute blood loss anemia: (2) Other spondylosis with radiculopathy, lumbar region: (3) Tachycardia: (4) Leukocytosis: (5) Hyponatremia: (6) Hypertension: (7) Hyperlipidemia: (8) Rheumatoid arthritis: Plan Per previous hospitalist w/ addendum: This is a 69 year old female with PMH significant for hypertension, hyperlipidemia, rheumatoid arthritis, palpitations, history of bilateral pulmonary emboli, and lumbar spondylosis with radiculopathy who underwent L1-L5 decompression and fusion on 02/25/[address] Nova. We have been consulted for post operative medical management. Spondylosis with radiculopathy, lumbar region Post-op spinal epidural abscess s/p washout during revision surgery on 03/07 L1-L5 decompression and fusion by Dr. Nova on February 25 complicated by fluid collection, fall with end plate fractures -Post-op lumbar Spine MRI 03/04 due to ongoing BLE weakness and pain * 15x5.1x3.1 cm fluid collection R aspect of subcu fat extending from level L1 vertebra down to level opposite L5 vertebra -Patient fell due overnight and 03/05 CT lumbar spine revealed end plate fracture L4 and pedicle fx of L5 on the right, prompting revision surgery on 03/07 -S/p removal of posterior segmental instrumentation L2 L4-L5, revision decompression with bilateral foraminotomies L4-L5, kyphoplasty L2 L4 and L5 shruthi tebral bodies, revision fusion L4-L5, L5-S1 -Epidural space and lumbar fascia OR cultures growing E coli and Morganella, sensitive to Ertapenem which was started on 03/08 - cultx also grows Staph epi and Corynebacterium -Follow blood cultures -ID consulted for further recs given duration of abx, likely to need for suppres sive therapy given hardware -recommended Rocephin 2g q24hrs, Vancomycin for 6 weeks and po rifampin 300mg BID x 3 months - discussed w/ ID and confirmed the recommended regimen Monitor CRP every other week and CBC, CMP , vancomycin level every week while being on IV antibiotics. After completion of IV antibiotic, she will need suppressive antibiotic given the hardware in which will be Bactrim, unfortunately no option for staph epidermidis given the sensitivities results. -WBC downtrending from 30 -> 24 -> 13K, remains afebrile -Dr. Nova recommending continued PT/OT and discharge to acute rehab -Continue incentive spirometry, encourage movement as able Pulmonary Emboli Pt with hypoxia and tachycardia on 03/12, requiring 2-3L of oxygen CTA chest obtained which noted pulmonary emboli bilaterally throughout the lungs EKG noting sinus tachycardia Echo ordered to confirm no heart strain IV heparin ordered Continue to monitor on telemetry Acute blood loss anemia 2/2 surgery as above Hgb stable 8.5 (from 9.1 yesterday, EBL 100ml) No indication for transfusion at this time Monitor while on IV heparin Chronic Hyponatremia Na 130-132 Patient notes poor PO intake Hold HCTZ and monitor sodium levels Pre-Diabetes Steroid induced hyperglycemia -> resolved A1C 6.3 BSG elevated likely in setting of IV steroids, has downtrended since steroids dc'd on 03/09 Discontinued SSI, monitor BSG on AM BMP Hypertension Continue home amlodipine, spironolactone Hold HCTZ for low sodium, resume when able Rheumatoid arthritis Hold leflunomide Thank you for this consultation. We will follow the patient with you during their hospital stay. You can reach a member of the [facility] Hospitalist Team 18/04 via [facility]. Admission and Anticipated Discharge Date Admission Date: February 25, 2025 Subjective Pt seen in follow up Hx of spinal surgery w/ complication/ abscess, required revision ID consulted - pt will require 6 weeks of abx Pt currently lying in bed in NAD, however confused per nursing staff. 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 Denies any fever, chills, chest pain, shortness of breath, abd.pain, n/v Reports difficulty moving her legs and requiring a lot of help w/ movements Discussed w/ ID today and confirmed the abx regimen -> changing CTX back to daily Review of Systems Review of Systems: All systems reviewed & are unremarkable except as noted in Subjective Physical Exam Physical Exam: General: obese F in NAD, however somewhat confused today, able to answer simple questions but not prolonged conversation HEENT: NC/AT, NC in nares CV: RRR Resp: Breath sounds clear anteriorly, no increased effort of breathing Abdomen: Soft, nontender Extremities: No edema in lower extremities bilaterally, moves extremities w/ difficulty, and requires help Results & Data Results & Data Vital Signs (Past 12 Hours) Vital Signs Temp Pulse Pulse Resp BP BP Pulse Ox 03/14/25 07:41 36.8 C 100 H 18 146/80 H 95 03/14/25 07:33 03/14/25 05:45 98 H 03/14/25 02:39 37.0 C 105 H 18 170/97 H 94 03/13/25 23:36 36.6 C 105 H 20 149/76 H 93 03/13/25 22:50 O2 Del Method O2 Flow Rate 03/14/25 07:41 Nasal Cannula 2 03/14/25 07:33 Nasal Cannula 3 03/14/25 05:45 03/14/25 02:39 Nasal Cannula 2 03/13/25 23:36 Nasal Cannula 2 03/13/25 22:50 2 Laboratory Results 03/14/25 Range/Units 04:12 WBC 13.53 H (4.8-10.8) K/ul RBC 2.88 L (4.20-5.40) M/uL Hgb 7.8 L (12.0-16.0) g/dl Hct 23.5 L (37.0-47.0) % MCV 81.6 (80.0-100.0) fL MCH 27.1 (25.0-34.0) pg MCHC 33.2 (32.0-36.0) g/dL RDW Std Deviation 45.1 (36.4-46.3) fL RDW Coeff of Neto 15.9 H (11.5-14.5) % Plt Count 287 (130-400) K/uL MPV 9.6 (9.4-12.4) fL Immature Gran % (Auto) 1.2 % Neut % (Auto) 78.2 % Lymph % (Auto) 10.3 % [place] % (Auto) 7.8 % Eos % (Auto) 2.4 % Baso % (Auto) 0.1 % Neut # (Auto) 10.59 H (1.40-6.50) K/uL Lymph # (Auto) 1.39 (1.20-3.40) K/uL [place] # (Auto) 1.06 H (0.11-0.59) K/uL Eos # (Auto) 0.32 (0.00-0.50) K/uL Baso # (Auto) 0.01 (0.00-0.20) K/uL Immature Gran # (Auto) 0.16 (0.01-0.20) K/uL Polychromasia 1+ Heparin Anti-Xa, Unfract 0.28 L (0.3-0.7) IU/ml Sodium 129 L (136-145) mmol/L Potassium 3.9 (3.5-5.1) mmol/L Chloride 98 (98-107) mmol/L Carbon Dioxide 23 (21-32) mmol/L Anion Gap 8 (3-11) BUN 11 (6-23) mg/dl Creatinine 0.66 (0.6-1.2) mg/dl Est Cr Clr Drug Dosing 91.9 ml/min eGFR 95.49 BUN/Creatinine Ratio 16.7 (10-20) Glucose 169 H (70-99(Fasting)) mg/dl Calcium 8.1 L (8.6-10.3) mg/dl Phosphorus 2.8 (2.5-4.9) mg/dl Magnesium 1.8 (1.7-2.4) mg/dl Total Bilirubin 1.0 (0.2-1.0) mg/dl AST 19 (13-39) U/L ALT 18 (7-52) U/L Alkaline Phosphatase 265 H (34-104) U/L Total Protein 5.0 L (6.0-8.3) gm/dl Albumin 2.6 L (3.4-5.0) gm/dl Globulin 2.4 L (2.5-4.0) gm/dl Albumin/Globulin Ratio 1.1 (0.9-2) Random Vancomycin 18.0 (10-20) mcg/ml Medications Administered Current Inpatient Medications Acetaminophen (Acetaminophen 500 Mg Tab) 1,000 mg PO Q8H PATRICK Stop: 04/02/25 08:59 Last Admin: 03/14/25 08:20 Dose: 1,000 mg Al Hydrox/Mg Hydrox/Simethicone (Aluminum/Magnesium Susp 30 Ml Udc) 30 ml PO Q6H PRN PRN Reason: Dyspepsia Stop: 03/27/25 14:53 Last Admin: 03/10/25 18:41 Dose: 30 ml Amlodipine Besylate (Amlodipine Besylate 5 Mg Tab) 5 mg PO BID PATRICK Stop: 03/27/25 20:59 Last Admin: 03/14/25 08:24 Dose: 5 mg Ascorbic Acid (Ascorbic Acid 500 Mg Tab) 500 mg PO DAILY [facility] Stop: 03/28/25 08:59 Last Admin: 03/14/25 08:25 Dose: 500 mg Bisacodyl (Bisacodyl 10 Mg Supp) 10 mg LA DAILY PRN PRN Reason: Constipation Stop: 03/27/25 14:53 Clotrimazole (Clotrimazole 1% Cr 15 Gm Tube) 1 appln EXT BID [facility] Stop: 04/11/25 20:59 Last Admin: 03/14/25 08:23 Dose: 1 appln Cyclobenzaprine HCl (Cyclobenzaprine Hcl 5 Mg Tab) 5 mg PO TID PRN PRN Reason: muscle spasms Stop: 04/02/25 09:29 Last Admin: 03/14/25 03:40 Dose: 5 mg Dextrose (Dextrose 50% 50 Ml Syringe) 25 - 50 ml IV UD PRN; Protocol PRN Reason: Hypoglycemia Protocol Stop: 04/04/25 10:53 Diphenhydramine HCl (Diphenhydramine Capsule 25 Mg Cap) 25 mg PO Q6H PRN PRN Reason: Allergic Rhinitis/Insomnia Stop: 03/27/25 14:53 Last Admin: 03/13/25 21:28 Dose: 25 mg Famotidine (Famotidine 20 Mg Tab) 20 mg PO Q12H PRN PRN Reason: Dyspepsia Stop: 03/27/25 14:53 Last Admin: 03/14/25 08:20 Dose: 20 mg Glucagon (Glucagon For Inj 1 Mg Vial) 1 mg SQ UD PRN; Protocol PRN Reason: Hypoglycemia Protocol Stop: 04/04/25 10:53 Glucose (Glucose 40% Gel 15 Gm Tube) 15 - 30 gm PO UD PRN; Protocol PRN Reason: Hypoglycemia Protocol Stop: 04/04/25 10:53 Glucose (Glucose 10 Tab/Tube) 4 - 8 tab PO UD PRN; Protocol PRN Reason: Hypoglycemia Protocol Stop: 04/04/25 10:53 Hydroxyzine HCl (Hydroxyzine Hcl 25 Mg Tab) 25 mg PO Q8H PRN PRN Reason: Anxiety Stop: 03/27/25 14:53 Last Admin: 03/14/25 08:20 Dose: 25 mg Promethazine HCl (Phenergan) 12.5 mg in 50.5 mls @ 202 mls/hr IV Q6H PRN PRN Reason: Nausea And Vomiting Stop: 03/27/25 14:53 Ceftriaxone Sodium (Rocephin) 2,000 mg in 50 mls @ 100 mls/hr IV Q12H [facility] Stop: 03/21/25 17:59 Last Infusion: 03/14/25 05:41 Dose: Infused Heparin Sodium/Dextrose (Heparin 72108 Unit/500 Ml D5w) 25,000 units in 500 mls @ 18 mls/hr IV .Q24H [facility]; Protocol Stop: 04/11/25 10:29 Last Admin: 03/14/25 09:24 Dose: 900 units/hr, 18 mls/hr Vancomycin HCl 1,750 mg/ (Sodium Chloride) 535 mls @ 200 mls/hr IV Q24H [facility] Stop: 03/22/25 13:59 Last Infusion: 03/13/25 15:57 Dose: Infused Influenza Virus Vaccine Quadrival (Do Not Administer Flu Vaccine) 1 each N/A PRN PRN PRN Reason: Notification Stop: 03/27/25 14:53 Lactobacillus Acidophilus (Advanced Probiotic 625 Mg Capsule) 1,250 mg PO DAILY [facility] Stop: 04/13/25 09:44 Last Admin: 03/14/25 10:11 Dose: 1,250 mg Lidocaine (Lidocaine 5% 1 Patch) 1 patch TD QAM [facility] Stop: 04/02/25 09:59 Last Admin: 03/14/25 08:21 Dose: 1 patch Magnesium Hydroxide (Magnesium Hydroxide Susp 30 Ml Udc) 30 ml PO Q24H PRN PRN Reason: Constipation Stop: 03/27/25 14:53 Last Admin: 03/08/25 21:05 Dose: 30 ml Magnesium Oxide (Magnesium Oxide 400 Mg Tab) 400 mg PO DAILY [facility] Stop: 03/28/25 08:59 Last Admin: 03/14/25 08:24 Dose: 400 mg Metoclopramide HCl (Metoclopramide Hcl Inj 5 Mg/Ml 2 Ml Vial) 10 mg IV Q6H PRN PRN Reason: Nausea &/or Vomiting Stop: 03/27/25 14:53 Miscellaneous (Remove Lidoderm Patch) 1 each N/A DAILY@2100 [facility] Stop: 04/02/25 20:59 Last Admin: 03/13/25 21:29 Dose: 1 each Miscellaneous (Carbohydrates For Hypoglycemia ) 15 - 30 gm PO UD PRN PRN Reason: Hypoglycemia Protocol Stop: 04/04/25 10:53 Miscellaneous Information (Vancomycin Consult Active) 1 each N/A UD PRN PRN Reason: Consult Stop: 04/10/25 17:12 Multivitamins (Multivitamin Tab) 1 tab PO DAILY [facility] Stop: 03/28/25 08:59 Last Admin: 03/14/25 08:25 Dose: 1 tab Naloxone HCl (Naloxone Hcl 0.4 Mg/1 Ml Vial/Carp) 0.1 mg IV Q5M PRN PRN Reason: Oversedation/Resp depression Stop: 03/27/25 14:53 Ondansetron HCl (Ondansetron Inj 2 Mg/Ml 2 Ml Vial) 4 mg IV Q6H PRN PRN Reason: Nausea &/or Vomiting Stop: 03/27/25 14:53 Ondansetron HCl (Ondansetron 4 Mg Od Tab) 4 mg PO Q6H PRN PRN Reason: Nausea Stop: 03/27/25 14:53 Last Admin: 02/26/25 18:26 Dose: 4 mg Pantoprazole Sodium (Pantoprazole 40 Mg Tab) 40 mg PO DAILYBL [facility]RICK Stop: 03/30/25 10:29 Last Admin: 03/14/25 08:25 Dose: 40 mg Pneumococcal Polyvalent Vaccine (Do Not Administer Pneumococcal Vaccine) 1 each N/A PRN PRN PRN Reason: Notification Stop: 03/27/25 14:53 Polyethylene Glycol (Polyethylene (Miralax) 17 Gm Pack) 17 gm PO DAILY [facility] Stop: 04/09/25 08:59 Last Admin: 03/14/25 08:20 Dose: 17 gm Rifampin (Rifampin 300 Mg Capsule) 300 mg PO BID [facility] Stop: 04/10/25 20:59 Last Admin: 03/14/25 08:23 Dose: 300 mg Senna/Docusate Sodium (Docusate Sodium/Senna 50/8.6mg Tab) 2 tab PO HS PATRICK Stop: 03/27/25 20:59 Last Admin: 03/13/25 21:27 Dose: 2 tab Sodium Biphosphate/Sodium Phosphate (Sod Phosphate/Sod Biphosphate Enema 132 Ml Btl) 132 ml LA ONE PRN PRN Reason: Constipation Stop: 03/27/25 14:53 Spironolactone (Spironolactone 25 Mg Tab) 25 mg PO QAM [facility]RICK Stop: 03/31/25 08:59 Last Admin: 03/14/25 08:24 Dose: 25 mg Tramadol HCl (Tramadol Hcl 50 Mg Tablet) 50 mg PO Q4H PRN PRN Reason: Pain Stop: 04/12/25 11:27 Last Admin: 03/14/25 03:39 Dose: 50 mg Vitamin D (Cholecalciferol 25 Mcg (1000 Units) Tab) 25 mcg PO DAILY [facility] Stop: 03/28/25 08:59 Last Admin: 03/14/25 08:25 Dose: 25 mcg Zolpidem Tartrate (Zolpidem Tartrate 5 Mg Tab) 10 mg PO HS PRN PRN Reason: Sleep Stop: 03/27/25 14:59 Last Admin: 03/09/25 21:35 Dose: 10 mg
[2025-03-14] MEDS: MAGNESIUM SULFATE / D5W 1 GM/100 ML BAG IV ONE (11:45)
[2025-03-14 13:04] LABS: INR 1.0 (0.9-1.1); Prothrombin Time 10.4 Seconds (9.0-12.0)
[2025-03-14 13:08] LABS: ANTI-Xa, UFH(UnfractionatedHep 0.34 IU/ml (0.3-0.7)
[2025-03-14] MEDS: WARFARIN SOD 1 MG TAB PO SCH (16:51)
[2025-03-14 20:14] LABS: ANTI-Xa, UFH(UnfractionatedHep 0.27 IU/ml (0.3-0.7)
[2025-03-15 01:29] LABS: ANTI-Xa, UFH(UnfractionatedHep 0.31 IU/ml (0.3-0.7)
[2025-03-15 06:54] LABS: INR 1.0 (0.9-1.1); Prothrombin Time 10.5 Seconds (9.0-12.0)
[2025-03-15 07:04] LABS: Anion Gap 8.0 (3-11); Blood Urea Nitrogen 8.0 mg/dl (6-23); Calcium 8.4 mg/dl (8.6-10.3); Carbon Dioxide 25.0 mmol/L (21-32); Chloride 97.0 mmol/L (98-107); Creatinine Clr Calc Pharmacy 104.7 ml/min; Glucose 100.0 mg/dl (70-99(Fasting)); Magnesium 1.7 mg/dl (1.7-2.4); Potassium 3.7 mmol/L (3.5-5.1); Sodium 130.0 mmol/L (136-145)
[2025-03-15 07:45] LABS: ANTI-Xa, UFH(UnfractionatedHep 0.36 IU/ml (0.3-0.7)
[2025-03-15] MEDS: MAGNESIUM SULFATE / D5W 1 GM/100 ML BAG IV ONE (08:29)
[2025-03-15 08:54] LABS: Hematocrit (blood only) 23.1 % (37.0-47.0); Hemoglobin 7.6 g/dl (12.0-16.0); Mean Corpuscular Hemoglobin 27.0 pg (25.0-34.0); Mean Corpuscular Volume 81.9 fL (80.0-100.0); Platelet Count 334 K/uL (130-400); RDW Standard Deviation 47.0 fL (36.4-46.3); Red Blood Count 2.82 M/uL (4.20-5.40); White Blood Count 12.08 K/ul (4.8-10.8)
--- NOTE | 2025-03-15 12:13 | Orthopedic Progress Note ---
Date of Service March 15, 2025 Assessment & Plan (1) Spinal epidural abscess: Plan: All narcotics have been held. Will continue to encourage her to transfer to chair as tolerated. She will be getting a PICC line in the near future. And will be able to wean her off her heparin once the INR achieves therapeutic levels. Admission and Anticipated Discharge Date Admission Date: February 25, 2025 Subjective Patient's somewhat confused today. She has been able to tolerate getting to a chair with assistance. Physical Exam Physical Exam: Patient's is at the bedside. Patient is confused today. She is neurologically intact. Results & Data Vital Signs (Past 12 Hours) Vital Signs Temp Pulse Pulse Resp BP BP Pulse Ox 03/15/25 11:48 36.3 C L 112 H 20 141/80 H 95 03/15/25 08:23 36.3 C L 102 H 20 144/70 H 92 03/15/25 07:45 03/15/25 05:44 104 H 03/15/25 03:02 36.9 C 107 H 18 179/83 H 92 03/15/25 02:48 36.6 C 101 H 18 154/110 H 93 O2 Del Method O2 Flow Rate 03/15/25 11:48 Nasal Cannula 2 03/15/25 08:23 Nasal Cannula 2 03/15/25 07:45 Nasal Cannula 2 03/15/25 05:44 03/15/25 03:02 Room Air 03/15/25 02:48 Room Air Queries Orthopedic Spine Acute Posthemorrhagic Anemia: Yes Obesity: Yes 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
--- NOTE | 2025-03-15 15:54 | Hospitalist Progress Note ---
Date of Service March 15, 2025 Assessment & Plan (1) Acute blood loss anemia: (2) Other spondylosis with radiculopathy, lumbar region: (3) Tachycardia: (4) Leukocytosis: (5) Hyponatremia: (6) Hypertension: (7) Hyperlipidemia: (8) Rheumatoid arthritis: Plan Per previous hospitalist w/ addendum: This is a 69 year old female with PMH significant for hypertension, hyperlipidemia, rheumatoid arthritis, palpitations, history of bilateral pulmonary emboli, and lumbar spondylosis with radiculopathy who underwent L1-L5 decompression and fusion on 02/25/[address] Nova. We have been consulted for post operative medical management. Spondylosis with radiculopathy, lumbar region Post-op spinal epidural abscess s/p washout during revision surgery on 03/07 L1-L5 decompression and fusion by Dr. Nova on February 25 complicated by fluid collection, fall with end plate fractures -Post-op lumbar Spine MRI 03/04 due to ongoing BLE weakness and pain * 15x5.1x3.1 cm fluid collection R aspect of subcu fat extending from level L1 vertebra down to level opposite L5 vertebra -Patient fell due overnight and 03/05 CT lumbar spine revealed end plate fracture L4 and pedicle fx of L5 on the right, prompting revision surgery on 03/07 -S/p removal of posterior segmental instrumentation L2 L4-L5, revision decompression with bilateral foraminotomies L4-L5, kyphoplasty L2 L4 and L5 shruthi tebral bodies, revision fusion L4-L5, L5-S1 -Epidural space and lumbar fascia OR cultures growing E coli and Morganella, sensitive to Ertapenem which was started on 03/08 - cultx also grows Staph epi and Corynebacterium -Follow blood cultures -ID consulted for further recs given duration of abx, likely to need for suppres sive therapy given hardware -recommended Rocephin 2g q24hrs, Vancomycin for 6 weeks and po rifampin 300mg BID x 3 months - discussed w/ ID and confirmed the recommended regimen Monitor CRP every other week and CBC, CMP , vancomycin level every week while being on IV antibiotics. After completion of IV antibiotic, she will need suppressive antibiotic given the hardware in which will be Bactrim, unfortunately no option for staph epidermidis given the sensitivities results. -WBC downtrending from 30 -> 24 -> 13K, remains afebrile -Dr. Nova recommending continued PT/OT and discharge to acute rehab. Discussed today (03/15) current progress (still on IV heparin, needing PICC line), also discussed w/ Coni MO pt having difficulty w/ movement / staying in chair for any prolonged time) -Continue incentive spirometry, encourage movement as able Pulmonary Emboli Pt with hypoxia and tachycardia on 03/12, requiring 2-3L of oxygen CTA chest obtained which noted pulmonary emboli bilaterally throughout the lungs EKG noting sinus tachycardia Echo ordered to confirm no heart strain IV heparin ordered, started warfarin Continue to monitor on telemetry Acute blood loss anemia 10/28 surgery as above Hgb 7.6, 7.8 yesterday No indication for transfusion at this time Monitor while on IV heparin Chronic Hyponatremia Na 130-132 Patient notes poor PO intake Hold HCTZ and monitor sodium levels Pre-Diabetes Steroid induced hyperglycemia -> resolved A1C 6.3 BSG elevated likely in setting of IV steroids, has downtrended since steroids dc'd on 03/09 Discontinued SSI, monitor BSG on AM BMP Hypertension Continue home amlodipine, spironolactone Hold HCTZ for low sodium, resume when able Rheumatoid arthritis Hold leflunomide Thank you for this consultation. We will follow the patient with you during their hospital stay. You can reach a member of the [facility] Hospitalist Team 18/04 via [employer]. Admission and Anticipated Discharge Date Admission Date: February 25, 2025 Subjective Pt seen in follow up Hx of spinal surgery w/ complication/ abscess, required revision ID consulted - pt will require 6 weeks of abx Pt currently lying in bed in NAD, however getting confused. 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 Consent obtained for PICC in the presence of her . Denies any fever, chills, chest pain, shortness of breath, abd.pain, n/v Reports difficulty moving her legs and requiring a lot of help w/ movements. She could only sit in chair for a little bit, reports feeling uncomfortable in chair. Discussed w/ ID yesterday and confirmed the abx regimen -> changed CTX back to daily Review of Systems Review of Systems: All systems reviewed & are unremarkable except as noted in Subjective Physical Exam Physical Exam: General: obese F in NAD, however somewhat confused today, able to answer simple questions but not prolonged conversation HEENT: NC/AT, NC in nares CV: RRR Resp: Breath sounds clear anteriorly, no increased effort of breathing Abdomen: Soft, nontender Extremities: No edema in lower extremities bilaterally, moves extremities w/ difficulty, and requires help Results & Data Results & Data Vital Signs (Past 12 Hours) Vital Signs Temp Pulse Pulse Resp BP Pulse Ox O2 Del Method 03/15/25 15:14 36.6 C 110 H 20 144/63 H 95 Nasal Cannula 03/15/25 13:02 116 H 03/15/25 11:48 36.3 C L 112 H 20 141/80 H 95 Nasal Cannula 03/15/25 08:23 36.3 C L 102 H 20 144/70 H 92 Nasal Cannula 03/15/25 07:45 Nasal Cannula 03/15/25 05:44 104 H O2 Flow Rate 03/15/25 15:14 2 03/15/25 13:02 03/15/25 11:48 2 03/15/25 08:23 2 03/15/25 07:45 2 03/15/25 05:44 Laboratory Results 03/15/25 03/15/25 03/15/25 Range/Units 06:25 06:18 00:45 WBC 12.08 H (4.8-10.8) K/ul RBC 2.82 L (4.20-5.40) M/uL Hgb 7.6 L (12.0-16.0) g/dl Hct 23.1 L (37.0-47.0) % MCV 81.9 (80.0-100.0) fL MCH 27.0 (25.0-34.0) pg MCHC 32.9 (32.0-36.0) g/dL RDW Std Deviation 47.0 H (36.4-46.3) fL RDW Coeff of Neto 17.0 H (11.5-14.5) % Plt Count 334 (130-400) K/uL MPV 10.1 (9.4-12.4) fL Absolute Nucleated RBC 0.02 (0.00-0.12) K/uL Nucleated RBC % (auto) 0.2 % PT 10.5 (9.0-12.0) Seconds INR 1.0 (0.9-1.1) Heparin Anti-Xa, Unfract 0.36 0.31 (0.3-0.7) IU/ml Sodium 130 L (136-145) mmol/L Potassium 3.7 (3.5-5.1) mmol/L Chloride 97 L (98-107) mmol/L Carbon Dioxide 25 (21-32) mmol/L Anion Gap 8 (3-11) BUN 8 (6-23) mg/dl Creatinine 0.57 L (0.6-1.2) mg/dl Est Cr Clr Drug Dosing 104.7 ml/min eGFR 98.93 BUN/Creatinine Ratio 14.0 (10-20) Glucose 100 H (70-99(Fasting)) mg/dl Calcium 8.4 L (8.6-10.3) mg/dl Phosphorus 3.3 (2.5-4.9) mg/dl Magnesium 1.7 (1.7-2.4) mg/dl 03/14/25 Range/Units 19:16 WBC (4.8-10.8) K/ul RBC (4.20-5.40) M/uL Hgb (12.0-16.0) g/dl Hct (37.0-47.0) % MCV (80.0-100.0) fL MCH (25.0-34.0) pg MCHC (32.0-36.0) g/dL RDW Std Deviation (36.4-46.3) fL RDW Coeff of Neto (11.5-14.5) % Plt Count (130-400) K/uL MPV (9.4-12.4) fL Absolute Nucleated RBC (0.00-0.12) K/uL Nucleated RBC % (auto) % PT (9.0-12.0) Seconds INR (0.9-1.1) Heparin Anti-Xa, Unfract 0.27 L (0.3-0.7) IU/ml Sodium (136-145) mmol/L Potassium (3.5-5.1) mmol/L Chloride (98-107) mmol/L Carbon Dioxide (21-32) mmol/L Anion Gap (3-11) BUN (6-23) mg/dl Creatinine (0.6-1.2) mg/dl Est Cr Clr Drug Dosing ml/min eGFR BUN/Creatinine Ratio (10-20) Glucose (70-99(Fasting)) mg/dl Calcium (8.6-10.3) mg/dl Phosphorus (2.5-4.9) mg/dl Magnesium (1.7-2.4) mg/dl Medications Administered Current Inpatient Medications Acetaminophen (Acetaminophen 500 Mg Tab) 1,000 mg PO Q8H PATRICK Stop: 04/02/25 08:59 Last Admin: 03/15/25 16:00 Dose: 1,000 mg Al Hydrox/Mg Hydrox/Simethicone (Aluminum/Magnesium Susp 30 Ml Udc) 30 ml PO Q6H PRN PRN Reason: Dyspepsia Stop: 03/27/25 14:53 Last Admin: 03/10/25 18:41 Dose: 30 ml Amlodipine Besylate (Amlodipine Besylate 5 Mg Tab) 5 mg PO BID PATRICK Stop: 03/27/25 20:59 Last Admin: 03/15/25 08:24 Dose: 5 mg Ascorbic Acid (Ascorbic Acid 500 Mg Tab) 500 mg PO DAILY PATRICK Stop: 03/28/25 08:59 Last Admin: 03/15/25 08:24 Dose: 500 mg Bisacodyl (Bisacodyl 10 Mg Supp) 10 mg FL DAILY PRN PRN Reason: Constipation Stop: 03/27/25 14:53 Clotrimazole (Clotrimazole 1% Cr 15 Gm Tube) 1 appln EXT BID PATRICK Stop: 04/11/25 20:59 Last Admin: 03/15/25 08:21 Dose: 1 appln Cyclobenzaprine HCl (Cyclobenzaprine Hcl 5 Mg Tab) 5 mg PO TID PRN PRN Reason: muscle spasms Stop: 04/02/25 09:29 Last Admin: 03/15/25 05:46 Dose: 5 mg Dextrose (Dextrose 50% 50 Ml Syringe) 25 - 50 ml IV UD PRN; Protocol PRN Reason: Hypoglycemia Protocol Stop: 04/04/25 10:53 Diphenhydramine HCl (Diphenhydramine Capsule 25 Mg Cap) 25 mg PO Q6H PRN PRN Reason: Allergic Rhinitis/Insomnia Stop: 03/27/25 14:53 Last Admin: 03/13/25 21:28 Dose: 25 mg Famotidine (Famotidine 20 Mg Tab) 20 mg PO Q12H PRN PRN Reason: Dyspepsia Stop: 03/27/25 14:53 Last Admin: 03/14/25 08:20 Dose: 20 mg Glucagon (Glucagon For Inj 1 Mg Vial) 1 mg SQ UD PRN; Protocol PRN Reason: Hypoglycemia Protocol Stop: 04/04/25 10:53 Glucose (Glucose 40% Gel 15 Gm Tube) 15 - 30 gm PO UD PRN; Protocol PRN Reason: Hypoglycemia Protocol Stop: 04/04/25 10:53 Glucose (Glucose 10 Tab/Tube) 4 - 8 tab PO UD PRN; Protocol PRN Reason: Hypoglycemia Protocol Stop: 04/04/25 10:53 Hydroxyzine HCl (Hydroxyzine Hcl 25 Mg Tab) 25 mg PO Q8H PRN PRN Reason: Anxiety Stop: 03/27/25 14:53 Last Admin: 03/15/25 08:22 Dose: 25 mg Promethazine HCl (Phenergan) 12.5 mg in 50.5 mls @ 202 mls/hr IV Q6H PRN PRN Reason: Nausea And Vomiting Stop: 03/27/25 14:53 Heparin Sodium/Dextrose (Heparin 39251 Unit/500 Ml D5w) 25,000 units in 500 mls @ 19 mls/hr IV .Q24H PATRICK; Protocol Stop: 04/11/25 10:29 Last Admin: 03/15/25 11:43 Dose: 950 units/hr, 19 mls/hr Vancomycin HCl 1,750 mg/ (Sodium Chloride) 535 mls @ 200 mls/hr IV Q24H PATRICK Stop: 04/26/25 13:59 Last Infusion: 03/15/25 15:50 Dose: Infused Ceftriaxone Sodium (Rocephin) 2,000 mg in 50 mls @ 100 mls/hr IV Q24H PATRICK Stop: 04/27/25 05:59 Influenza Virus Vaccine Quadrival (Do Not Administer Flu Vaccine) 1 each N/A PRN PRN PRN Reason: Notification Stop: 03/27/25 14:53 Lactobacillus Acidophilus (Advanced Probiotic 625 Mg Capsule) 1,250 mg PO DAILY PATRICK Stop: 04/13/25 09:44 Last Admin: 03/15/25 08:21 Dose: 1,250 mg Lidocaine (Lidocaine 5% 1 Patch) 1 patch TD QAM [facility] Stop: 04/02/25 09:59 Last Admin: 03/15/25 08:20 Dose: 1 patch Magnesium Hydroxide (Magnesium Hydroxide Susp 30 Ml Udc) 30 ml PO Q24H PRN PRN Reason: Constipation Stop: 03/27/25 14:53 Last Admin: 03/08/25 21:05 Dose: 30 ml Magnesium Oxide (Magnesium Oxide 400 Mg Tab) 400 mg PO DAILY [facility] Stop: 03/28/25 08:59 Last Admin: 03/15/25 08:24 Dose: 400 mg Metoclopramide HCl (Metoclopramide Hcl Inj 5 Mg/Ml 2 Ml Vial) 10 mg IV Q6H PRN PRN Reason: Nausea &/or Vomiting Stop: 03/27/25 14:53 Miscellaneous (Remove Lidoderm Patch) 1 each N/A DAILY@2100 [facility] Stop: 04/02/25 20:59 Last Admin: 03/14/25 21:30 Dose: 1 each Miscellaneous (Carbohydrates For Hypoglycemia ) 15 - 30 gm PO UD PRN PRN Reason: Hypoglycemia Protocol Stop: 04/04/25 10:53 Miscellaneous Information (Vancomycin Consult Active) 1 each N/A UD PRN PRN Reason: Consult Stop: 04/10/25 17:12 Multivitamins (Multivitamin Tab) 1 tab PO DAILY [facility] Stop: 03/28/25 08:59 Last Admin: 03/15/25 08:24 Dose: 1 tab Naloxone HCl (Naloxone Hcl 0.4 Mg/1 Ml Vial/Carp) 0.1 mg IV Q5M PRN PRN Reason: Oversedation/Resp depression Stop: 03/27/25 14:53 Ondansetron HCl (Ondansetron Inj 2 Mg/Ml 2 Ml Vial) 4 mg IV Q6H PRN PRN Reason: Nausea &/or Vomiting Stop: 03/27/25 14:53 Ondansetron HCl (Ondansetron 4 Mg Od Tab) 4 mg PO Q6H PRN PRN Reason: Nausea Stop: 03/27/25 14:53 Last Admin: 02/26/25 18:26 Dose: 4 mg Pantoprazole Sodium (Pantoprazole 40 Mg Tab) 40 mg PO DAILYBL [facility] Stop: 03/30/25 10:29 Last Admin: 03/15/25 08:24 Dose: 40 mg Pneumococcal Polyvalent Vaccine (Do Not Administer Pneumococcal Vaccine) 1 each N/A PRN PRN PRN Reason: Notification Stop: 03/27/25 14:53 Polyethylene Glycol (Polyethylene (Miralax) 17 Gm Pack) 17 gm PO DAILY PATRICK Stop: 04/09/25 08:59 Last Admin: 03/15/25 08:24 Dose: Not Given Rifampin (Rifampin 300 Mg Capsule) 300 mg PO BID PATRICK Stop: 04/10/25 20:59 Last Admin: 03/15/25 08:24 Dose: 300 mg Senna/Docusate Sodium (Docusate Sodium/Senna 50/8.6mg Tab) 2 tab PO HS PATRICK Stop: 03/27/25 20:59 Last Admin: 03/14/25 21:29 Dose: 2 tab Sodium Biphosphate/Sodium Phosphate (Sod Phosphate/Sod Biphosphate Enema 132 Ml Btl) 132 ml FL ONE PRN PRN Reason: Constipation Stop: 03/27/25 14:53 Spironolactone (Spironolactone 25 Mg Tab) 25 mg PO QAM PATRICK Stop: 03/31/25 08:59 Last Admin: 03/15/25 08:21 Dose: 25 mg Tramadol HCl (Tramadol Hcl 50 Mg Tablet) 50 mg PO Q4H PRN PRN Reason: Pain Stop: 04/12/25 11:27 Last Admin: 03/15/25 10:59 Dose: 50 mg Vitamin D (Cholecalciferol 25 Mcg (1000 Units) Tab) 25 mcg PO DAILY PATRICK Stop: 03/28/25 08:59 Last Admin: 03/15/25 08:24 Dose: 25 mcg Warfarin Sodium (Warfarin Sod 2 Mg Tab) 2 mg PO DAILY@1600 PATRICK Stop: 04/14/25 15:59 Last Admin: 03/15/25 16:01 Dose: 2 mg Zolpidem Tartrate (Zolpidem Tartrate 5 Mg Tab) 10 mg PO HS PRN PRN Reason: Sleep Stop: 03/27/25 14:59 Last Admin: 03/14/25 21:29 Dose: 10 mg
[2025-03-15] MEDS: WARFARIN SOD 2 MG TAB PO SCH (16:01)
[2025-03-16] MEDS: cefTRIAXone SODIUM 2,000 MG/50 ML BAG IV SCH (05:07)
[2025-03-16 07:17] LABS: Hematocrit (blood only) 22.3 % (37.0-47.0); Hemoglobin 7.6 g/dl (12.0-16.0); Mean Corpuscular Hemoglobin 27.5 pg (25.0-34.0); Mean Corpuscular Volume 80.8 fL (80.0-100.0); Platelet Count 222 K/uL (130-400); RDW Standard Deviation 46.5 fL (36.4-46.3); Red Blood Count 2.76 M/uL (4.20-5.40); White Blood Count 12.15 K/ul (4.8-10.8)
--- NOTE | 2025-03-16 07:42 | Hospitalist Progress Note ---
Date of Service March 16, 2025 Assessment & Plan (1) Acute blood loss anemia: (2) Other spondylosis with radiculopathy, lumbar region: (3) Tachycardia: (4) Leukocytosis: (5) Hyponatremia: (6) Hypertension: (7) Hyperlipidemia: (8) Rheumatoid arthritis: Plan Per previous hospitalist w/ addendum: This is a 69 year old female with PMH significant for hypertension, hyperlipidemia, rheumatoid arthritis, palpitations, history of bilateral pulmonary emboli, and lumbar spondylosis with radiculopathy who underwent L1-L5 decompression and fusion on 02/25/[address] Nova. We have been consulted for post operative medical management. Spondylosis with radiculopathy, lumbar region Post-op spinal epidural abscess s/p washout during revision surgery on 03/07 L1-L5 decompression and fusion by Dr. Nova on February 25 complicated by fluid collection, fall with end plate fractures -Post-op lumbar Spine MRI 03/04 due to ongoing BLE weakness and pain * 15x5.1x3.1 cm fluid collection R aspect of subcu fat extending from level L1 vertebra down to level opposite L5 vertebra -Patient fell due overnight and 03/05 CT lumbar spine revealed end plate fracture L4 and pedicle fx of L5 on the right, prompting revision surgery on 03/07 -S/p removal of posterior segmental instrumentation L2 L4-L5, revision decompression with bilateral foraminotomies L4-L5, kyphoplasty L2 L4 and L5 shruthi tebral bodies, revision fusion L4-L5, L5-S1 -Epidural space and lumbar fascia OR cultures growing E coli and Morganella, sensitive to Ertapenem which was started on 03/08 - cultx also grows Staph epi and Corynebacterium -Follow blood cultures -ID consulted for further recs given duration of abx, likely to need for suppres sive therapy given hardware -recommended Rocephin 2g q24hrs, Vancomycin for 6 weeks and po rifampin 300mg BID x 3 months - discussed w/ ID and confirmed the recommended regimen Monitor CRP every other week and CBC, CMP , vancomycin level every week while being on IV antibiotics. After completion of IV antibiotic, she will need suppressive antibiotic given the hardware in which will be Bactrim, unfortunately no option for staph epidermidis given the sensitivities results. -WBC downtrending from 30 -> 24 -> 13K -> 12K, remains afebrile (pt also on tylenol for pain, which could hinder fever but trying to eliminate opioids or other meds that can alter mental status) -Dr. Nova recommending continued PT/OT and discharge to acute rehab. Discussed on (03/15) current progress (still on IV heparin, needing PICC line), also discussed w/ Coni MO pt having difficulty w/ movement / staying in chair for any prolonged time) -Continue incentive spirometry, encourage movement as able Pulmonary Emboli Pt with hypoxia and tachycardia on 03/12, requiring 2-3L of oxygen CTA chest obtained which noted pulmonary emboli bilaterally throughout the lungs EKG noting sinus tachycardia Echo ordered to confirm no heart strain IV heparin ordered, started warfarin Continue to monitor on telemetry Acute blood loss anemia / surgery as above Hgb 7.6, 7.8 yesterday No indication for transfusion at this time Monitor while on IV heparin Chronic Hyponatremia Na 130-132 Patient notes poor PO intake Hold HCTZ and monitor sodium levels Pre-Diabetes Steroid induced hyperglycemia -> resolved A1C 6.3 BSG elevated likely in setting of IV steroids, has downtrended since steroids dc'd on 03/09 Discontinued SSI, monitor BSG on AM BMP Hypertension Continue home amlodipine, spironolactone Hold HCTZ for low sodium, resume when able Rheumatoid arthritis Hold leflunomide Thank you for this consultation. We will follow the patient with you during their hospital stay. You can reach a member of the [place] Hospitalist Team 18/04 via [employer]. Admission and Anticipated Discharge Date Admission Date: February 25, 2025 Subjective Pt seen in follow up Hx of spinal surgery w/ complication/ abscess, required revision ID consulted - pt will require 6 weeks of iv abx, po rifampin Pt currently lying in bed in NAD, this AM more awake and more conversant. She can recognize her at the bedside and says his name. Denies any fever, chills, chest pain, shortness of breath, abd.pain, n/v Reports difficulty moving her legs and requiring a lot of help w/ movements. She could only sit in chair yesterday for a little bit, reports feeling uncomfortable in chair. Tried to obtain PICC line yesterday but has poor vasculature, will need to wait 48 hrs after USG line removed. Cont. IV heparin, warfarin, monitor INR Update: Pt later received tramadol and flexeril, and appeared more drowsy. Family members at the bedside visiting and updated in detail. Cont. close monitoring, try to avoid any meds that can cause altered mental status, and or mild myoclonus. Discussed w/ RN as well in detail. Hold tramadol, flexeril. Review of Systems Review of Systems: All systems reviewed & are unremarkable except as noted in Subjective Physical Exam Physical Exam: General: obese F in NAD, however somewhat confused today, able to answer simple questions but not prolonged conversation HEENT: NC/AT, NC in nares CV: RRR Resp: Breath sounds clear anteriorly, no increased effort of breathing Abdomen: Soft, nontender Extremities: No edema in lower extremities bilaterally, moves extremities w/ difficulty, and requires help Results & Data Results & Data Vital Signs (Past 12 Hours) Vital Signs Temp Pulse Pulse Resp BP BP Pulse Ox 03/16/25 06:45 106 H 03/16/25 04:16 37.6 C H 108 H 20 154/79 H 95 03/15/25 23:10 36.7 C 54 L 20 177/99 H 95 03/15/25 22:20 110 H 03/15/25 21:00 O2 Del Method O2 Flow Rate 03/16/25 06:45 03/16/25 04:16 Nasal Cannula 2 03/15/25 23:10 Nasal Cannula 2 03/15/25 22:20 03/15/25 21:00 Nasal Cannula 2 Laboratory Results 03/16/25 03/16/25 03/16/25 Range/Units 16:03 09:08 06:36 WBC 12.15 H (4.8-10.8) K/ul RBC 2.76 L (4.20-5.40) M/uL Hgb 7.6 L (12.0-16.0) g/dl Hct 22.3 L (37.0-47.0) % MCV 80.8 (80.0-100.0) fL MCH 27.5 (25.0-34.0) pg MCHC 34.1 (32.0-36.0) g/dL RDW Std Deviation 46.5 H (36.4-46.3) fL RDW Coeff of Neto 16.8 H (11.5-14.5) % Plt Count 222 (130-400) K/uL MPV 10.5 (9.4-12.4) fL PT 11.4 (9.0-12.0) Seconds INR 1.1 (0.9-1.1) Heparin Anti-Xa, Unfract 0.25 L 0.24 L (0.3-0.7) IU/ml Sodium 129 L (136-145) mmol/L Potassium 3.4 L (3.5-5.1) mmol/L Chloride 96 L (98-107) mmol/L Carbon Dioxide 25 (21-32) mmol/L Anion Gap 8 (3-11) BUN 8 (6-23) mg/dl Creatinine 0.58 L (0.6-1.2) mg/dl Est Cr Clr Drug Dosing 103.6 ml/min eGFR 98.51 BUN/Creatinine Ratio 13.8 (10-20) Glucose 92 (70-99(Fasting)) mg/dl Calcium 8.4 L (8.6-10.3) mg/dl Phosphorus 3.7 (2.5-4.9) mg/dl Magnesium 1.6 L (1.7-2.4) mg/dl Medications Administered Current Inpatient Medications Acetaminophen (Acetaminophen 500 Mg Tab) 1,000 mg PO Q8H PATRICK Stop: 04/02/25 08:59 Last Admin: 03/16/25 15:46 Dose: 1,000 mg Al Hydrox/Mg Hydrox/Simethicone (Aluminum/Magnesium Susp 30 Ml Udc) 30 ml PO Q6H PRN PRN Reason: Dyspepsia Stop: 03/27/25 14:53 Last Admin: 03/10/25 18:41 Dose: 30 ml Amlodipine Besylate (Amlodipine Besylate 5 Mg Tab) 5 mg PO BID PATRICK Stop: 03/27/25 20:59 Last Admin: 03/16/25 08:44 Dose: 5 mg Ascorbic Acid (Ascorbic Acid 500 Mg Tab) 500 mg PO DAILY PATRICK Stop: 03/28/25 08:59 Last Admin: 03/16/25 08:44 Dose: 500 mg Bisacodyl (Bisacodyl 10 Mg Supp) 10 mg KS DAILY PRN PRN Reason: Constipation Stop: 03/27/25 14:53 Clotrimazole (Clotrimazole 1% Cr 15 Gm Tube) 1 appln EXT BID PATRICK Stop: 04/11/25 20:59 Last Admin: 03/16/25 08:44 Dose: 1 appln Cyclobenzaprine HCl (Cyclobenzaprine Hcl 5 Mg Tab) 5 mg PO TID PRN PRN Reason: muscle spasms Stop: 04/02/25 09:29 Last Admin: 03/16/25 10:06 Dose: 5 mg Dextrose (Dextrose 50% 50 Ml Syringe) 25 - 50 ml IV UD PRN; Protocol PRN Reason: Hypoglycemia Protocol Stop: 04/04/25 10:53 Diphenhydramine HCl (Diphenhydramine Capsule 25 Mg Cap) 25 mg PO Q6H PRN PRN Reason: Allergic Rhinitis/Insomnia Stop: 03/27/25 14:53 Last Admin: 03/13/25 21:28 Dose: 25 mg Famotidine (Famotidine 20 Mg Tab) 20 mg PO Q12H PRN PRN Reason: Dyspepsia Stop: 03/27/25 14:53 Last Admin: 03/14/25 08:20 Dose: 20 mg Glucagon (Glucagon For Inj 1 Mg Vial) 1 mg SQ UD PRN; Protocol PRN Reason: Hypoglycemia Protocol Stop: 04/04/25 10:53 Glucose (Glucose 40% Gel 15 Gm Tube) 15 - 30 gm PO UD PRN; Protocol PRN Reason: Hypoglycemia Protocol Stop: 04/04/25 10:53 Glucose (Glucose 10 Tab/Tube) 4 - 8 tab PO UD PRN; Protocol PRN Reason: Hypoglycemia Protocol Stop: 04/04/25 10:53 Hydromorphone HCl (Hydromorphone Hcl 2 Mg Tab) 1 mg PO Q4H PRN PRN Reason: Pain Stop: 03/30/25 15:44 Hydroxyzine HCl (Hydroxyzine Hcl 25 Mg Tab) 25 mg PO Q8H PRN PRN Reason: Anxiety Stop: 03/27/25 14:53 Last Admin: 03/16/25 05:06 Dose: 25 mg Promethazine HCl (Phenergan) 12.5 mg in 50.5 mls @ 202 mls/hr IV Q6H PRN PRN Reason: Nausea And Vomiting Stop: 03/27/25 14:53 Heparin Sodium/Dextrose (Heparin 67191 Unit/500 Ml D5w) 25,000 units in 500 mls @ 21 mls/hr IV .[id number] PATRICK; Protocol Stop: 04/11/25 10:29 Last Titration: 03/16/25 16:44 Dose: 1,050 units/hr, 21 mls/hr Vancomycin HCl 1,750 mg/ (Sodium Chloride) 535 mls @ 200 mls/hr IV Q24H [facility] Stop: 04/26/25 13:59 Last Infusion: 03/16/25 17:15 Dose: Infused Ceftriaxone Sodium (Rocephin) 2,000 mg in 50 mls @ 100 mls/hr IV Q24H PATRICK Stop: 04/27/25 05:59 Last Infusion: 03/16/25 05:37 Dose: Infused Sodium Chloride (Nss) 500 mls @ 80 mls/hr IV .Q6H15M ONE Stop: 03/16/25 21:04 Last Admin: 03/16/25 15:24 Dose: 80 mls/hr Influenza Virus Vaccine Quadrival (Do Not Administer Flu Vaccine) 1 each N/A PRN PRN PRN Reason: Notification Stop: 03/27/25 14:53 Lactobacillus Acidophilus (Advanced Probiotic 625 Mg Capsule) 1,250 mg PO DAILY [facility] Stop: 04/13/25 09:44 Last Admin: 03/16/25 08:44 Dose: 1,250 mg Lidocaine (Lidocaine 5% 1 Patch) 1 patch TD QAM [facility] Stop: 04/02/25 09:59 Last Admin: 03/16/25 08:44 Dose: 1 patch Magnesium Hydroxide (Magnesium Hydroxide Susp 30 Ml Udc) 30 ml PO Q24H PRN PRN Reason: Constipation Stop: 03/27/25 14:53 Last Admin: 03/08/25 21:05 Dose: 30 ml Magnesium Oxide (Magnesium Oxide 400 Mg Tab) 400 mg PO DAILY [facility] Stop: 03/28/25 08:59 Last Admin: 03/16/25 08:44 Dose: 400 mg Melatonin (Melatonin 3 Mg Tab) 3 mg PO HS PRN PRN Reason: Sleep Stop: 04/15/25 15:48 Metoclopramide HCl (Metoclopramide Hcl Inj 5 Mg/Ml 2 Ml Vial) 10 mg IV Q6H PRN PRN Reason: Nausea &/or Vomiting Stop: 03/27/25 14:53 Miscellaneous (Remove Lidoderm Patch) 1 each N/A DAILY@2100 [facility] Stop: 04/02/25 20:59 Last Admin: 03/15/25 23:12 Dose: 1 each Miscellaneous (Carbohydrates For Hypoglycemia ) 15 - 30 gm PO UD PRN PRN Reason: Hypoglycemia Protocol Stop: 04/04/25 10:53 Miscellaneous Information (Vancomycin Consult Active) 1 each N/A UD PRN PRN Reason: Consult Stop: 04/10/25 17:12 Multivitamins (Multivitamin Tab) 1 tab PO DAILY PATRICK Stop: 03/28/25 08:59 Last Admin: 03/16/25 08:44 Dose: 1 tab Naloxone HCl (Naloxone Hcl 0.4 Mg/1 Ml Vial/Carp) 0.1 mg IV Q5M PRN PRN Reason: Oversedation/Resp depression Stop: 03/27/25 14:53 Ondansetron HCl (Ondansetron Inj 2 Mg/Ml 2 Ml Vial) 4 mg IV Q6H PRN PRN Reason: Nausea &/or Vomiting Stop: 03/27/25 14:53 Ondansetron HCl (Ondansetron 4 Mg Od Tab) 4 mg PO Q6H PRN PRN Reason: Nausea Stop: 03/27/25 14:53 Last Admin: 02/26/25 18:26 Dose: 4 mg Pantoprazole Sodium (Pantoprazole 40 Mg Tab) 40 mg PO DAILYBL PATRICK Stop: 03/30/25 10:29 Last Admin: 03/16/25 10:06 Dose: 40 mg Pneumococcal Polyvalent Vaccine (Do Not Administer Pneumococcal Vaccine) 1 each N/A PRN PRN PRN Reason: Notification Stop: 03/27/25 14:53 Polyethylene Glycol (Polyethylene (Miralax) 17 Gm Pack) 17 gm PO DAILY PATRICK Stop: 04/09/25 08:59 Last Admin: 03/16/25 08:44 Dose: Not Given Rifampin (Rifampin 300 Mg Capsule) 300 mg PO BID PATRICK Stop: 04/10/25 20:59 Last Admin: 03/16/25 08:44 Dose: 300 mg Senna/Docusate Sodium (Docusate Sodium/Senna 50/8.6mg Tab) 2 tab PO HS PATRICK Stop: 03/27/25 20:59 Last Admin: 03/15/25 23:11 Dose: 2 tab Sodium Biphosphate/Sodium Phosphate (Sod Phosphate/Sod Biphosphate Enema 132 Ml Btl) 132 ml KS ONE PRN PRN Reason: Constipation Stop: 03/27/25 14:53 Spironolactone (Spironolactone 25 Mg Tab) 25 mg PO QAM [facility] Stop: 03/31/25 08:59 Last Admin: 03/16/25 08:44 Dose: 25 mg Tramadol HCl (Tramadol Hcl 50 Mg Tablet) 50 mg PO Q4H PRN PRN Reason: Pain Stop: 04/12/25 11:27 Last Admin: 03/16/25 10:06 Dose: 50 mg Vitamin D (Cholecalciferol 25 Mcg (1000 Units) Tab) 25 mcg PO DAILY [facility] Stop: 03/28/25 08:59 Last Admin: 03/16/25 08:44 Dose: 25 mcg Warfarin Sodium (Warfarin Sod 3 Mg Tab) 3 mg PO DAILY@1600 [facility] Stop: 04/15/25 15:59 Last Admin: 03/16/25 17:11 Dose: Not Given Zolpidem Tartrate (Zolpidem Tartrate 5 Mg Tab) 10 mg PO HS PRN PRN Reason: Sleep Stop: 03/27/25 14:59 Last Admin: 03/14/25 21:29 Dose: 10 mg
[2025-03-16 07:44] LABS: Anion Gap 8.0 (3-11); Blood Urea Nitrogen 8.0 mg/dl (6-23); Calcium 8.4 mg/dl (8.6-10.3); Carbon Dioxide 25.0 mmol/L (21-32); Chloride 96.0 mmol/L (98-107); Creatinine Clr Calc Pharmacy 103.6 ml/min; Glucose 92.0 mg/dl (70-99(Fasting)); Magnesium 1.6 mg/dl (1.7-2.4); Potassium 3.4 mmol/L (3.5-5.1); Sodium 129.0 mmol/L (136-145)
[2025-03-16 07:51] LABS: ANTI-Xa, UFH(UnfractionatedHep 0.24 IU/ml (0.3-0.7)
[2025-03-16] MEDS: FIRST - Mouthwash BLM 5 ML UDP PO ONE (10:06)
[2025-03-16 10:27] LABS: INR 1.1 (0.9-1.1); Prothrombin Time 11.4 Seconds (9.0-12.0)
--- NOTE | 2025-03-16 10:39 | Orthopedic Progress Note ---
Date of Service March 16, 2025 Assessment & Plan (1) Spinal epidural abscess: Plan: At this time encourage the patient to continue to get to a chair with each meal. Continue with therapy as tolerated. She would be stable for rehab once PICC line placed. Admission and Anticipated Discharge Date Admission Date: February 25, 2025 Subjective Patient's back pain is controlled. Still complaining of some leg pain and weakness. She did get up to a chair yesterday. Physical Exam Physical Exam: Patient is currently in bed. Still bilateral foot drop. Sensitivity to touching of her legs. Results & Data Vital Signs (Past 12 Hours) Vital Signs Temp Pulse Pulse Resp BP BP Pulse Ox 03/16/25 08:12 37.5 C 105 H 20 177/85 H 94 03/16/25 06:45 106 H 03/16/25 04:16 37.6 C H 108 H 20 154/79 H 95 03/15/25 23:10 36.7 C 54 L 20 177/99 H 95 O2 Del Method O2 Flow Rate 03/16/25 08:12 Nasal Cannula 2 03/16/25 06:45 03/16/25 04:16 Nasal Cannula 2 03/15/25 23:10 Nasal Cannula 2 Queries Orthopedic Spine Acute Posthemorrhagic Anemia: Yes Obesity: Yes 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
[2025-03-16] MEDS: SODIUM CHLORIDE 0.9% 500 ML IV ONE (15:24)
[2025-03-16] MEDS ORDERED: MELATONIN 3 MG TAB PO PRN (15:49)
[2025-03-16 16:42] LABS: ANTI-Xa, UFH(UnfractionatedHep 0.25 IU/ml (0.3-0.7)
[2025-03-16] MEDS: WARFARIN SOD 3 MG TAB PO SCH (17:11)
--- NOTE | 2025-03-16 20:57 | Communication Note ---
Date of Service: March 16, 2025 Overnight issues 03/16, 8:50 PM Patient with worsening confusion and disorientation as per RN. Mild headache symptoms with worsening back pain. Denies chest pain, SOB. No alcohol withdrawal concerns as per RN. SBP 1 40-1 70s last 48 hours. PPE Obese, disoriented, uncomfortable AP Delirium Multifactorial Progressive hyponatremia Uncontrolled hypertension Uncontrolled pain Rule out ICH given headache concerns. Stop NSS, Lasix 1 dose, fluid restriction, hyponatremia workup IV Lopressor 1 dose given tachycardia, add losartan to BP regimen Hold IV heparin given headache and worsening back pain complaints H&H and chemistry now CT head, CT abdomen pelvis CT head Mild cerebral atrophy and periventricular white matter low density consistent with chronic small vessel disease and/or senescent changes. This is similar to previous. Beach index measures 0.36. Normal pressure hydrocephalus is not excluded. CT abdomen pelvis 1. There is a 3 cm AP x 3.2 cm transverse by 11 cm craniocaudad subcutaneous fluid collection along the lumbar spine incision site. There is a 3 cm cluster of antibiotic granules within this fluid collection inferiorly. No internal gas or surrounding inflammation. Likely seroma. 2. The appendix is normal. Bowel loops are nondilated. No pneumoperitoneum, free fluid, or acute inflammatory changes are seen involving the bowel. 3. Previous multilevel lumbar spine fusion, instrumentation, and laminectomy with hardware consisting of pedicle screws attached to posterolateral rods extending from L2 through S1. The hardware is intact. No acute fracture or subluxation is seen. Hemoglobin 6.2 from 7.6 in a.m. Transfuse 1 unit PRBC., Continue to hold heparin 03/17, 6:40 AM Patient had noted to dried blood smear on bed pad as per RN. ? Possible LGIB Clear liquid diet FOBT now
[2025-03-16] MEDS: ACETAMINOPHEN 325 MG TAB PO STA (21:29)
[2025-03-16] MEDS: METOPROLOL TARTRATE 1 MG/ML VIAL IV STA (21:29)
[2025-03-16] MEDS: POTASSIUM CHLORIDE CRTAB 20 MEQ TABCR PO STA (21:40)
[2025-03-16] MEDS: OPTIRAY 320 100ml IV ONE (22:20)
[2025-03-16] MEDS: MAGNESIUM SULFATE / D5W 1 GM/100 ML BAG IV SCH (22:35)
[2025-03-16 23:03] LABS: Hematocrit (blood only) 18.4 % (37.0-47.0); Hemoglobin 6.2 g/dl (12.0-16.0)
[2025-03-16] MEDS ORDERED: SODIUM CHLORIDE 0.9% 100 ML IV PRN (23:06)
[2025-03-16 23:10] LABS: Anion Gap 7.0 (3-11); Calcium 8.0 mg/dl (8.6-10.3); Carbon Dioxide 25.0 mmol/L (21-32); Chloride 95.0 mmol/L (98-107); Potassium 3.3 mmol/L (3.5-5.1); Sodium 127.0 mmol/L (136-145)
--- NOTE | 2025-03-16 23:10 | CT Scan Report ---
Exam(s): CT HEAD Without Contrast EXAM: CT Head Without Intravenous Contrast CLINICAL HISTORY: Reason for exam: jara ams. heparin. TECHNIQUE: Axial computed tomography images of the head/brain without intravenous contrast. CTDI is 34.24 mGy and DLP is 1859.12 mGy-cm. Automated exposure control was utilized for the study. A dose lowering technique was utilized adhering to the principles of ALARA. COMPARISON: 03/06/2025 FINDINGS: Brain: Mild cerebral atrophy and periventricular white matter low density consistent with chronic small vessel disease and/or senescent changes. No hemorrhage. Ventricles: Unremarkable. No ventriculomegaly. Bones/joints: Unremarkable. No acute fracture. Soft tissues: Unremarkable. Sinuses: Unremarkable as visualized. No acute sinusitis. Mastoid air cells: Unremarkable as visualized. No mastoid effusion. IMPRESSION: Mild cerebral atrophy and periventricular white matter low density consistent with chronic small vessel disease and/or senescent changes. This is similar to previous. Beach index measures 0.36. Normal pressure hydrocephalus is not excluded. Electronically signed by: Farhad Matias MD 03/16/25 23:09 PM
[2025-03-16 23:16] LABS: Blood Urea Nitrogen 7.0 mg/dl (6-23); Creatinine Clr Calc Pharmacy 111.3 ml/min; Glucose 86.0 mg/dl (70-99(Fasting))
[2025-03-16 23:39] LABS: INR 1.2 (0.9-1.1); Prothrombin Time 12.5 Seconds (9.0-12.0)
--- NOTE | 2025-03-16 23:39 | CT Scan Report ---
Exam(s): CT ABDOMEN + PELVIS With Contrast IV Amt: OPTIRAY 320 94ML EXAM: CT Abdomen and Pelvis With Intravenous Contrast CLINICAL HISTORY: Reason for exam: worsening back pain, iv heparin. TECHNIQUE: Axial computed tomography images of the abdomen and pelvis with intravenous contrast. CTDI is 34.24 mGy and DLP is 1859.12 mGy-cm. Automated exposure control was utilized for the study. A dose lowering technique was utilized adhering to the principles of ALARA. CONTRAST: Patient received OPTIRAY 320 94ML of IV contrast COMPARISON: No relevant prior studies available. FINDINGS: Lung bases: Trace amount of subsegmental atelectasis in the costophrenic angles. Lung bases are otherwise clear. Mediastinum: There is a 2.5 cm hiatal hernia. ABDOMEN: Liver: Unremarkable. No mass. Gallbladder and bile ducts: Unremarkable. No calcified stones. No ductal dilation. Pancreas: Unremarkable. No mass. No ductal dilation. Spleen: Unremarkable. No splenomegaly. Adrenals: Unremarkable. No mass. Kidneys and ureters: 3.1 cm simple cysts in the right kidney lower pole. No follow-up is required. No hydronephrosis. Stomach and bowel: Unremarkable. No obstruction. No mucosal thickening. PELVIS: Appendix: The appendix is normal. Bowel loops are nondilated. No pneumoperitoneum, free fluid, or acute inflammatory changes are seen involving the bowel. Bladder: Unremarkable. No mass. Reproductive: Unremarkable as visualized. ABDOMEN and PELVIS: Intraperitoneal space: See above. Bones/joints: Previous multilevel lumbar spine fusion, instrumentation, and laminectomy with hardware consisting of pedicle screws attached to posterolateral rods extending from L2 through S1. The hardware is intact. No acute fracture or subluxation is seen. Soft tissues: There is a 3 cm AP x 3.2 cm transverse by 11 cm craniocaudad subcutaneous fluid collection along the lumbar spine incision site. There is a 3 cm cluster of antibiotic granules within this fluid collection inferiorly. No internal gas or surrounding inflammation. Likely seroma. Vasculature: The abdominal aorta is mildly calcified but nondilated. There is no aneurysm or dissection. Lymph nodes: Unremarkable. No enlarged lymph nodes. IMPRESSION: 1. There is a 3 cm AP x 3.2 cm transverse by 11 cm craniocaudad subcutaneous fluid collection along the lumbar spine incision site. There is a 3 cm cluster of antibiotic granules within this fluid collection inferiorly. No internal gas or surrounding inflammation. Likely seroma. 2. The appendix is normal. Bowel loops are nondilated. No pneumoperitoneum, free fluid, or acute inflammatory changes are seen involving the bowel. 3. Previous multilevel lumbar spine fusion, instrumentation, and laminectomy with hardware consisting of pedicle screws attached to posterolateral rods extending from L2 through S1. The hardware is intact. No acute fracture or subluxation is seen. Electronically signed by: Farhad Matias MD 03/16/25 23:38 PM
[2025-03-17 00:02] LABS: Appearance Urine Clear (Clear); Glucose Urine UA Negative (Negative)
[2025-03-17 00:06] LABS: ANTI-Xa, UFH(UnfractionatedHep < 0.10 IU/ml (0.3-0.7)
[2025-03-17] MEDS: FUROSEMIDE INJ 20 MG/2 ML VIAL IV ONE ×2 (00:34→17:51)
[2025-03-17] MEDS: METOPROLOL TARTRATE 1 MG/ML VIAL IV STA (01:01)
[2025-03-17] MEDS: POTASSIUM CHLORIDE CRTAB 20 MEQ TABCR PO STA (01:01)
[2025-03-17 03:58] LABS: Hematocrit (blood only) 25.5 % (37.0-47.0); Hematocrit (blood only) 26.3 % (37.0-47.0); Hemoglobin 8.6 g/dl (12.0-16.0); Immature Granulocytes # (auto) 0.07 K/uL (0.01-0.20); Immature Granulocytes % (auto) 0.5 %; Mean Corpuscular Hemoglobin 26.5 pg (25.0-34.0); Mean Corpuscular Hemoglobin 27.1 pg (25.0-34.0); Mean Corpuscular Volume 80.4 fL (80.0-100.0); Mean Corpuscular Volume 81.2 fL (80.0-100.0); Platelet Count 307 K/uL (130-400); Platelet Count 312 K/uL (130-400); RDW Standard Deviation 45.4 fL (36.4-46.3); RDW Standard Deviation 45.6 fL (36.4-46.3); Red Blood Count 3.17 M/uL (4.20-5.40); Red Blood Count 3.24 M/uL (4.20-5.40); White Blood Count 13.18 K/ul (4.8-10.8); White Blood Count 13.27 K/ul (4.8-10.8)
[2025-03-17 04:13] LABS: Anion Gap 7.0 (3-11); Blood Urea Nitrogen 6.0 mg/dl (6-23); Calcium 8.5 mg/dl (8.6-10.3); Carbon Dioxide 28.0 mmol/L (21-32); Chloride 94.0 mmol/L (98-107); Creatinine Clr Calc Pharmacy 96.9 ml/min; Glucose 97.0 mg/dl (70-99(Fasting)); Magnesium 2.0 mg/dl (1.7-2.4); Potassium 3.9 mmol/L (3.5-5.1); Sodium 129.0 mmol/L (136-145)
[2025-03-17 04:33] LABS: ANTI-Xa, UFH(UnfractionatedHep < 0.10 IU/ml (0.3-0.7)
[2025-03-17 04:39] LABS: INR 1.2 (0.9-1.1); Prothrombin Time 13.0 Seconds (9.0-12.0)
[2025-03-17] MEDS: LOSARTAN POTASSIUM 25 MG TAB PO SCH (05:45)
--- NOTE | 2025-03-17 08:38 | Orthopedic Progress Note ---
Date of Service March 17, 2025 Assessment & Plan (1) Spinal epidural abscess: Plan: Nga is status post lumbar decompression and fusion with revision including kyphoplasties due to hardware failure as well as subsequent infection. She still bed to chair at this point. Hopefully PICC line can be reattempted within the next 24 hours. Continue current antibiotic regimen recommended by infectious disease. there is Currently concern for lower GI bleed. Maintain Haywood catheter. Admission and Anticipated Discharge Date Admission Date: February 25, 2025 Subjective Had more disorientation and hallucination yesterday. H&H dropped to 6.2 and 18.4 yesterday. Transfuse 1 unit of packed red blood cells. This morning H&H are 8.[address] scan of the head and pelvis were performed yesterday. Haywood catheter was placed. PICC line was attempted on Tuesday but due to poor access was unable to be placed. Have to wait 48 hours before reattempt Review of Systems Review of Systems: All systems reviewed & are unremarkable except as noted in HPI & below Physical Exam Physical Exam: She was sleeping, easily arousable but was not making sense and fell right back asleep Physical exam unable to be performed Results & Data Vital Signs (Past 12 Hours) Vital Signs Temp Pulse Pulse Resp BP BP Pulse Ox 03/17/25 08:11 36.8 C 101 H 19 175/86 H 99 03/17/25 06:45 99 H 03/17/25 04:59 98 H 03/17/25 04:24 36.9 C 92 H 18 161/95 H 96 03/17/25 01:57 36.6 C 95 H 18 144/77 H 92 03/17/25 01:55 36.7 C 100 H 18 161/89 H 96 03/17/25 01:20 92 H 158/89 H 03/17/25 01:01 110 H 163/78 H 03/17/25 00:54 36.7 C 111 H 18 163/78 H 99 03/17/25 00:27 37.1 C 108 H 20 157/84 H 99 03/17/25 00:12 36.9 C 105 H 16 156/87 H 98 03/16/25 23:54 37.2 C 92 H 18 167/82 H 97 03/16/25 21:55 03/16/25 21:45 106 H 165/90 H O2 Del Method O2 Flow Rate 03/17/25 08:11 Nasal Cannula 2 03/17/25 06:45 03/17/25 04:59 03/17/25 04:24 Nasal Cannula 2 03/17/25 01:57 2 03/17/25 01:55 2 03/17/25 01:20 03/17/25 01:01 03/17/25 00:54 2 03/17/25 00:27 2 03/17/25 00:12 2 03/16/25 23:54 2 03/16/25 21:55 Nasal Cannula 2 03/16/25 21:45 Diagnostic Findings [place], [place] [phone] CT Scan Report Patient: AGNES MCCLELLAND Admit Date: 02/25/25 MR#: [id number] Address1: [address] [place] [address] Acct ID:[id number] Address2: Date: 1955 [facility] Zip: [place] [address] Age: 69 Location: Sex: F Room/Bed: [address] Phy: Adriel Nova D.O. Diagnosis: Degenerative Lumbar Spinal Stenosis, Lumbar Disc Amber Phy: Michaela Donnelly NP Service Date: 03/16/25 Fam Phy: Interpreting Phy: Farhad Matias MDAdmit Phy: Adriel Nova D.O. Ordering Phy: Brendon Laurent MD cc: ~ Exam(s): CT ABDOMEN + PELVIS With Contrast IV Amt: OPTIRAY 320 94ML EXAM: CT Abdomen and Pelvis With Intravenous Contrast CLINICAL HISTORY: Reason for exam: worsening back pain, iv heparin. TECHNIQUE: Axial computed tomography images of the abdomen and pelvis with intravenous contrast. CTDI is 34.24 mGy and DLP is 1859.12 mGy-cm. Automated exposure control was utilized for the study. A dose lowering technique was utilized adhering to the principles of ALARA. CONTRAST: Patient received OPTIRAY 320 94ML of IV contrast COMPARISON: No relevant prior studies available. FINDINGS: Lung bases: Trace amount of subsegmental atelectasis in the costophrenic angles. Lung bases are otherwise clear. Mediastinum: There is a 2.5 cm hiatal hernia. ABDOMEN: Liver: Unremarkable. No mass. Gallbladder and bile ducts: Unremarkable. No calcified stones. No ductal dilation. Pancreas: Unremarkable. No mass. No ductal dilation. Spleen: Unremarkable. No splenomegaly. Adrenals: Unremarkable. No mass. Kidneys and ureters: 3.1 cm simple cysts in the right kidney lower pole. No follow-up is required. No hydronephrosis. Stomach and bowel: Unremarkable. No obstruction. No mucosal thickening. PELVIS: Appendix: The appendix is normal. Bowel loops are nondilated. No pneumoperitoneum, free fluid, or acute inflammatory changes are seen involving the bowel. Bladder: Unremarkable. No mass. Reproductive: Unremarkable as visualized. ABDOMEN and PELVIS: Intraperitoneal space: See above. Bones/joints: Previous multilevel lumbar spine fusion, instrumentation, and laminectomy with hardware consisting of pedicle screws attached to posterolateral rods extending from L2 through S1. The hardware is intact. No acute fracture or subluxation is seen. Soft tissues: There is a 3 cm AP x 3.2 cm transverse by 11 cm craniocaudad subcutaneous fluid collection along the lumbar spine incision site. There is a 3 cm cluster of antibiotic granules within this fluid collection inferiorly. No internal gas or surrounding inflammation. Likely seroma. Vasculature: The abdominal aorta is mildly calcified but nondilated. There is no aneurysm or dissection. Lymph nodes: Unremarkable. No enlarged lymph nodes. IMPRESSION: 1. There is a 3 cm AP x 3.2 cm transverse by 11 cm craniocaudad subcutaneous fluid collection along the lumbar spine incision site. There is a 3 cm cluster of antibiotic granules within this fluid collection inferiorly. No internal gas or surrounding inflammation. Likely seroma. 2. The appendix is normal. Bowel loops are nondilated. No pneumoperitoneum, free fluid, or acute inflammatory changes are seen involving the bowel. 3. Previous multilevel lumbar spine fusion, instrumentation, and laminectomy with hardware consisting of pedicle screws attached to posterolateral rods extending from L2 through S1. The hardware is intact. No acute fracture or subluxation is seen. Electronically signed by: Farhad Matias MD 03/16/25 23:38 PM Dictated: 03/16/252337 Transcribed: 03/16/252337 Queries Orthopedic Spine Acute Posthemorrhagic Anemia: Yes Obesity: Yes 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
[2025-03-17 08:58] LABS: Hematocrit (blood only) 27.0 % (37.0-47.0); Hemoglobin 8.8 g/dl (12.0-16.0)
--- NOTE | 2025-03-17 11:11 | Hospitalist Progress Note ---
Date of Service March 17, 2025 Assessment & Plan (1) Acute blood loss anemia: (2) Other spondylosis with radiculopathy, lumbar region: (3) Tachycardia: (4) Leukocytosis: (5) Hyponatremia: (6) Hypertension: (7) Hyperlipidemia: (8) Rheumatoid arthritis: Plan Per previous hospitalist w/ addendum: This is a 69 year old female with PMH significant for hypertension, hyperlipidemia, rheumatoid arthritis, palpitations, history of bilateral pulmonary emboli, and lumbar spondylosis with radiculopathy who underwent L1-L5 decompression and fusion on 02/25/[address] Nova. We have been consulted for post operative medical management. Spondylosis with radiculopathy, lumbar region Post-op spinal epidural abscess s/p washout during revision surgery on 03/07 L1-L5 decompression and fusion by Dr. Nova on February 25 complicated by fluid collection, fall with end plate fractures -Post-op lumbar Spine MRI 03/04 due to ongoing BLE weakness and pain * 15x5.1x3.1 cm fluid collection R aspect of subcu fat extending from level L1 vertebra down to level opposite L5 vertebra -Patient fell due overnight and 03/05 CT lumbar spine revealed end plate fracture L4 and pedicle fx of L5 on the right, prompting revision surgery on 03/07 -S/p removal of posterior segmental instrumentation L2 L4-L5, revision decompression with bilateral foraminotomies L4-L5, kyphoplasty L2 L4 and L5 shruthi tebral bodies, revision fusion L4-L5, L5-S1 -Epidural space and lumbar fascia OR cultures growing E coli and Morganella, sensitive to Ertapenem which was started on 03/08 - cultx also grows Staph epi and Corynebacterium -Follow blood cultures -ID consulted for further recs given duration of abx, likely to need for suppres sive therapy given hardware -recommended Rocephin 2g q24hrs, Vancomycin for 6 weeks and po rifampin 300mg BID x 3 months - discussed w/ ID and confirmed the recommended regimen Monitor CRP every other week and CBC, CMP , vancomycin level every week while being on IV antibiotics. After completion of IV antibiotic, she will need suppressive antibiotic given the hardware in which will be Bactrim, unfortunately no option for staph epidermidis given the sensitivities results. -WBC downtrending from 30 -> 24 -> 13K -> 12K ->13K , remains afebrile (pt also on tylenol for pain, which could hinder fever but trying to eliminate opioids or other meds that can alter mental status) -Dr. Nova recommending continued PT/OT and discharge to acute rehab. Discussed on (03/15) current progress (still on IV heparin, needing PICC line), also discussed w/ Coni MO pt having difficulty w/ movement / staying in chair for any prolonged time) -Continue incentive spirometry, encourage movement as able 03/17 Per RN surg. dressings now saturated, will obtain cultx, and will notify surg. team CT abd/pelvis obtained overnight - 1. There is a 3 cm AP x 3.2 cm transverse by 11 cm craniocaudad subcutaneous fluid collection along the lumbar spine incision site. There is a 3 cm cluster of antibiotic granules within this fluid collection inferiorly. No internal gas or surrounding inflammation. Likely seroma. 2. The appendix is normal. Bowel loops are nondilated. No pneumoperitoneum, free fluid, or acute inflammatory changes are seen involving the bowel. 3. Previous multilevel lumbar spine fusion, instrumentation, and laminectomy with hardware consisting of pedicle screws attached to posterolateral rods extending from L2 through S1. The hardware is intact. No acute fracture or subluxation is seen. Pulmonary Emboli Pt with hypoxia and tachycardia on 03/12, requiring 2-3L of oxygen CTA chest obtained which noted pulmonary emboli bilaterally throughout the lungs EKG noting sinus tachycardia Echo ordered to confirm no heart strain IV heparin ordered, started warfarin Continue to monitor on telemetry Overnight heparin held as Hgb 6.2 - this may have been incorrect value - pt reported they had difficulty getting blood work. received 1 unit of pRBC and Hgb stable, FOBT negative Consider restarting heparin Acute blood loss anemia / surgery as above Hgb 7.8 on 03/14 Hgb 7.6 on 03/15 Hgb 7.6 on 03/16 overnight Hgb checked and was down at 6.2 - however likely not correct value - per had difficulty obtaining blood work on her received 1 unit of pRBC Current Hgb 8.8 on 03/17 FOBT checked and negative, stool seen - light brown IV heparin was put on hold overnight, consider restarting Chronic Hyponatremia Na 130-132 Patient notes poor PO intake Hold HCTZ and monitor sodium levels Pre-Diabetes Steroid induced hyperglycemia -> resolved A1C 6.3 BSG elevated likely in setting of IV steroids, has downtrended since steroids dc'd on 03/09 Discontinued SSI, monitor BSG on AM BMP Hypertension Continue home amlodipine, spironolactone Hold HCTZ for low sodium Rheumatoid arthritis Hold leflunomide Thank you for this consultation. We will follow the patient with you during their hospital stay. You can reach a [facility] via [email or web address]. Admission and Anticipated Discharge Date Admission Date: February 25, 2025 Subjective Pt seen in follow up Hx of spinal surgery w/ complication/ abscess, required revision ID consulted - pt will require 6 weeks of iv abx, po rifampin Pt currently lying in bed in NAD, she has been becoming more confused but she c an answer simple questions and tells me she recognizes me without any issues. Found pt in bed , incontinent of stool, small amount soft, light brown - asked RN to bedside - pt was cleaned and FOBT obtained - negative for any occult blood Denies any fever, chills, chest pain, shortness of breath, abd.pain, n/v Has been having difficulty moving her legs and requiring a lot of help w/ movements. But she could lift both of her legs today off bed slightly without my help. The other day, pt could only sit in chair for a little bit, reported uncom fortable in chair. Tried to obtain PICC line on Tuesday but has poor vasculature, will need to wait 48 hrs after USG line removed. Continued IV heparin, warfarin, monitor INR Overnight, reported worsening mental status, worsening abd. pain. CT head, CT abd/pelvis obtained. Hgb obtain and down to 6.2, IV heparin stopped. CT head negative. FOBT obtained today negative. Received 1 unit of pRBC and current Hgb 8.8 Later today, updated pt's at the bedside. Discussed that if FOBT negative, and Hgb stable, would restart iv heparin Update: Dressings more saturated per RN, will notify Dr. Nova, will obtain cultx Review of Systems Review of Systems: All systems reviewed & are unremarkable except as noted in Subjective Physical Exam Physical Exam: General: obese F in NAD, however somewhat confused today, able to answer simple questions appropriately HEENT: NC/AT, NC in nares CV: RRR Resp: Breath sounds clear anteriorly, no increased effort of breathing Abdomen: Soft, nontender Extremities: No edema in lower extremities bilaterally, moves LE extremities but w/ difficulty, moves UEs w/o any difficulty Results & Data Results & Data Vital Signs (Past 12 Hours) Vital Signs Temp Pulse Pulse Resp BP BP Pulse Ox 03/17/25 08:11 36.8 C 101 H 19 175/86 H 99 03/17/25 06:45 99 H 03/17/25 04:59 98 H 03/17/25 04:24 36.9 C 92 H 18 161/95 H 96 03/17/25 01:57 36.6 C 95 H 18 144/77 H 92 03/17/25 01:55 36.7 C 100 H 18 161/89 H 96 03/17/25 01:20 92 H 158/89 H 03/17/25 01:01 110 H 163/78 H 03/17/25 00:54 36.7 C 111 H 18 163/78 H 99 03/17/25 00:27 37.1 C 108 H 20 157/84 H 99 03/17/25 00:12 36.9 C 105 H 16 156/87 H 98 03/16/25 23:54 37.2 C 92 H 18 167/82 H 97 O2 Del Method O2 Flow Rate 03/17/25 08:11 Nasal Cannula 2 03/17/25 06:45 03/17/25 04:59 03/17/25 04:24 Nasal Cannula 2 03/17/25 01:57 2 03/17/25 01:55 2 03/17/25 01:20 03/17/25 01:01 03/17/25 00:54 2 03/17/25 00:27 2 03/17/25 00:12 2 03/16/25 23:54 2 Laboratory Results 03/17/25 03/17/25 03/17/25 Range/Units Unknown 08:10 05:41 WBC (4.8-10.8) K/ul RBC (4.20-5.40) M/uL Hgb 8.8 L (12.0-16.0) g/dl Hct 27.0 L (37.0-47.0) % MCV (80.0-100.0) fL MCH (25.0-34.0) pg MCHC (32.0-36.0) g/dL RDW Std Deviation (36.4-46.3) fL RDW Coeff of [place] (11.5-14.5) % Plt Count (130-400) K/uL MPV (9.4-12.4) fL Immature Gran % (Auto) % Neut % (Auto) % Lymph % (Auto) % [place] % (Auto) % Eos % (Auto) % Baso % (Auto) % Neut # (Auto) (1.40-6.50) K/uL Lymph # (Auto) (1.20-3.40) K/uL [place] # (Auto) (0.11-0.59) K/uL Eos # (Auto) (0.00-0.50) K/uL Baso # (Auto) (0.00-0.20) K/uL Immature Gran # (Auto) (0.01-0.20) K/uL Absolute Nucleated RBC (0.00-0.12) K/uL Nucleated RBC % (auto) % PT (9.0-12.0) Seconds INR (0.9-1.1) Heparin Anti-Xa, Unfract (0.3-0.7) IU/ml Sodium 129 L (136-145) mmol/L Potassium (3.5-5.1) mmol/L Chloride (98-107) mmol/L Carbon Dioxide (21-32) mmol/L Anion Gap (3-11) BUN (6-23) mg/dl Creatinine (0.6-1.2) mg/dl Est Cr Clr Drug Dosing ml/min eGFR BUN/Creatinine Ratio (10-20) Glucose (70-99(Fasting)) mg/dl POC Glucose (70-99) mg/dl Osmolality (280-300) mOsm/kg Calcium (8.6-10.3) mg/dl Phosphorus (2.5-4.9) mg/dl Magnesium (1.7-2.4) mg/dl Ammonia (18-72) umol/L TSH (0.300-4.500) uIu/ml Urine Color Urine Appearance (Clear) Urine pH (4.5-7.5) Ur Specific [place] (1.000-1.030) Urine Protein (Negative) Urine Glucose (UA) (Negative) Urine Ketones (Negative) Urine Blood (Negative) Urine Nitrite (Negative) Urine Bilirubin (Negative) Urine Urobilinogen (Negative) Ur Leukocyte Esterase (Negative) Urine Osmolality 311 L (500-800) mOsm/kg Ur Random Sodium 121 mmol/L Urine Comment Stool Occult Bld Scrn Negative (Negative) Blood Type Antibody Screen Crossmatch 03/17/25 03/17/25 03/17/25 Range/Units 03:27 03:27 03:27 WBC (4.8-10.8) K/ul RBC (4.20-5.40) M/uL Hgb (12.0-16.0) g/dl Hct (37.0-47.0) % MCV (80.0-100.0) fL MCH (25.0-34.0) pg MCHC (32.0-36.0) g/dL RDW Std Deviation (36.4-46.3) fL RDW Coeff of Net[place] 16.2 H (11.5-14.5) % Plt Count 312 307 (130-400) K/uL MPV 9.5 9.4 (9.4-12.4) fL Immature Gran % (Auto) 0.5 % Neut % (Auto) 79.0 % Lymph % (Auto) 8.4 % [place] % (Auto) 9.0 % Eos % (Auto) 2.9 % Baso % (Auto) 0.2 % Neut # (Auto) 10.41 H (1.40-6.50) K/uL Lymph # (Auto) 1.11 L (1.20-3.40) K/uL [place] # (Auto) 1.19 H (0.11-0.59) K/uL Eos # (Auto) 0.38 (0.00-0.50) K/uL Baso # (Auto) 0.02 (0.00-0.20) K/uL Immature Gran # (Auto) 0.07 (0.01-0.20) K/uL Absolute Nucleated RBC 0.02 (0.00-0.12) K/uL Nucleated RBC % (auto) 0.2 % PT 13.0 H (9.0-12.0) Seconds INR 1.2 H (0.9-1.1) Heparin Anti-Xa, Unfract < 0.10 L (0.3-0.7) IU/ml Sodium 129 L (136-145) mmol/L Potassium 3.9 (3.5-5.1) mmol/L Chloride 94 L (98-107) mmol/L Carbon Dioxide 28 (21-32) mmol/L Anion Gap 7 (3-11) BUN 6 (6-23) mg/dl Creatinine 0.62 (0.6-1.2) mg/dl Est Cr Clr Drug Dosing 96.9 ml/min eGFR 96.94 BUN/Creatinine Ratio 9.7 L (10-20) Glucose 97 (70-99(Fasting)) mg/dl POC Glucose (70-99) mg/dl Osmolality (280-300) mOsm/kg Calcium 8.5 L (8.6-10.3) mg/dl Phosphorus 3.0 (2.5-4.9) mg/dl Magnesium 2.0 (1.7-2.4) mg/dl Ammonia (18-72) umol/L TSH (0.300-4.500) uIu/ml Urine Color Urine Appearance (Clear) Urine pH (4.5-7.5) Ur Specific [place] (1.000-1.030) Urine Protein (Negative) Urine Glucose (UA) (Negative) Urine Ketones (Negative) Urine Blood (Negative) Urine Nitrite (Negative) Urine Bilirubin (Negative) Urine Urobilinogen (Negative) Ur Leukocyte Esterase (Negative) Urine Osmolality (500-800) mOsm/kg Ur Random Sodium mmol/L Urine Comment Stool Occult Bld Scrn (Negative) Blood Type Antibody Screen Crossmatch 03/17/25 03/17/25 03/17/25 Range/Units 03:27 03:27 03:27 WBC (4.8-10.8) K/ul RBC (4.20-5.40) M/uL Hgb (12.0-16.0) g/dl Hct (37.0-47.0) % MCV (80.0-100.0) fL MCH 27.1 (25.0-34.0) pg MCHC 33.7 32.7 (32.0-36.0) g/dL RDW Std Deviation 45.4 45.6 (36.4-46.3) fL RDW Coeff of Neto 16.3 H (11.5-14.5) % Plt Count (130-400) K/uL MPV (9.4-12.4) fL Immature Gran % (Auto) % Neut % (Auto) % Lymph % (Auto) % [place] % (Auto) % Eos % (Auto) % Baso % (Auto) % Neut # (Auto) (1.40-6.50) K/uL Lymph # (Auto) (1.20-3.40) K/uL [place] # (Auto) (0.11-0.59) K/uL Eos # (Auto) (0.00-0.50) K/uL Baso # (Auto) (0.00-0.20) K/uL Immature Gran # (Auto) (0.01-0.20) K/uL Absolute Nucleated RBC (0.00-0.12) K/uL Nucleated RBC % (auto) % PT (9.0-12.0) Seconds INR (0.9-1.1) Heparin Anti-Xa, Unfract (0.3-0.7) IU/ml Sodium (136-145) mmol/L Potassium (3.5-5.1) mmol/L Chloride (98-107) mmol/L Carbon Dioxide (21-32) mmol/L Anion Gap (3-11) BUN (6-23) mg/dl Creatinine (0.6-1.2) mg/dl Est Cr Clr Drug Dosing ml/min eGFR BUN/Creatinine Ratio (10-20) Glucose (70-99(Fasting)) mg/dl POC Glucose (70-99) mg/dl Osmolality (280-300) mOsm/kg Calcium (8.6-10.3) mg/dl Phosphorus (2.5-4.9) mg/dl Magnesium (1.7-2.4) mg/dl Ammonia (18-72) umol/L TSH (0.300-4.500) uIu/ml Urine Color Urine Appearance (Clear) Urine pH (4.5-7.5) Ur Specific [place] (1.000-1.030) Urine Protein (Negative) Urine Glucose (UA) (Negative) Urine Ketones (Negative) Urine Blood (Negative) Urine Nitrite (Negative) Urine Bilirubin (Negative) Urine Urobilinogen (Negative) Ur Leukocyte Esterase (Negative) Urine Osmolality (500-800) mOsm/kg Ur Random Sodium mmol/L Urine Comment Stool Occult Bld Scrn (Negative) Blood Type Antibody Screen Crossmatch 03/17/25 03/17/25 03/17/25 Range/Units 03:27 03:27 03:27 WBC (4.8-10.8) K/ul RBC (4.20-5.40) M/uL Hgb 8.6 L (12.0-16.0) g/dl Hct 25.5 L 26.3 L (37.0-47.0) % MCV 80.4 81.2 (80.0-100.0) fL MCH 26.5 (25.0-34.0) pg MCHC (32.0-36.0) g/dL RDW Std Deviation (36.4-46.3) fL RDW Coeff of Neto (11.5-14.5) % Plt Count (130-400) K/uL MPV (9.4-12.4) fL Immature Gran % (Auto) % Neut % (Auto) % Lymph % (Auto) % [place] % (Auto) % Eos % (Auto) % Baso % (Auto) % Neut # (Auto) (1.40-6.50) K/uL Lymph # (Auto) (1.20-3.40) K/uL [place] # (Auto) (0.11-0.59) K/uL Eos # (Auto) (0.00-0.50) K/uL Baso # (Auto) (0.00-0.20) K/uL Immature Gran # (Auto) (0.01-0.20) K/uL Absolute Nucleated RBC (0.00-0.12) K/uL Nucleated RBC % (auto) % PT (9.0-12.0) Seconds INR (0.9-1.1) Heparin Anti-Xa, Unfract (0.3-0.7) IU/ml Sodium (136-145) mmol/L Potassium (3.5-5.1) mmol/L Chloride (98-107) mmol/L Carbon Dioxide (21-32) mmol/L Anion Gap (3-11) BUN (6-23) mg/dl Creatinine (0.6-1.2) mg/dl Est Cr Clr Drug Dosing ml/min eGFR BUN/Creatinine Ratio (10-20) Glucose (70-99(Fasting)) mg/dl POC Glucose (70-99) mg/dl Osmolality (280-300) mOsm/kg Calcium (8.6-10.3) mg/dl Phosphorus (2.5-4.9) mg/dl Magnesium (1.7-2.4) mg/dl Ammonia (18-72) umol/L TSH (0.300-4.500) uIu/ml Urine Color Urine Appearance (Clear) Urine pH (4.5-7.5) Ur Specific [place] (1.000-1.030) Urine Protein (Negative) Urine Glucose (UA) (Negative) Urine Ketones (Negative) Urine Blood (Negative) Urine Nitrite (Negative) Urine Bilirubin (Negative) Urine Urobilinogen (Negative) Ur Leukocyte Esterase (Negative) Urine Osmolality (500-800) mOsm/kg Ur Random Sodium mmol/L Urine Comment Stool Occult Bld Scrn (Negative) Blood Type Antibody Screen Crossmatch 03/17/25 03/17/25 03/17/25 Range/Units 03:27 03:27 03:27 WBC 13.18 H 13.27 H (4.8-10.8) K/ul RBC 3.17 L 3.24 L (4.20-5.40) M/uL Hgb 8.6 L (12.0-16.0) g/dl Hct (37.0-47.0) % MCV (80.0-100.0) fL MCH (25.0-34.0) pg MCHC (32.0-36.0) g/dL RDW Std Deviation (36.4-46.3) fL RDW Coeff of [place] (11.5-14.5) % Plt Count (130-400) K/uL MPV (9.4-12.4) fL Immature Gran % (Auto) % Neut % (Auto) % Lymph % (Auto) % [place] % (Auto) % Eos % (Auto) % Baso % (Auto) % Neut # (Auto) (1.40-6.50) K/uL Lymph # (Auto) (1.20-3.40) K/uL [place] # (Auto) (0.11-0.59) K/uL Eos # (Auto) (0.00-0.50) K/uL Baso # (Auto) (0.00-0.20) K/uL Immature Gran # (Auto) (0.01-0.20) K/uL Absolute Nucleated RBC (0.00-0.12) K/uL Nucleated RBC % (auto) % PT (9.0-12.0) Seconds INR (0.9-1.1) Heparin Anti-Xa, Unfract (0.3-0.7) IU/ml Sodium (136-145) mmol/L Potassium (3.5-5.1) mmol/L Chloride (98-107) mmol/L Carbon Dioxide (21-32) mmol/L Anion Gap (3-11) BUN (6-23) mg/dl Creatinine (0.6-1.2) mg/dl Est Cr Clr Drug Dosing ml/min eGFR BUN/Creatinine Ratio (10-20) Glucose (70-99(Fasting)) mg/dl POC Glucose (70-99) mg/dl Osmolality (280-300) mOsm/kg Calcium (8.6-10.3) mg/dl Phosphorus (2.5-4.9) mg/dl Magnesium (1.7-2.4) mg/dl Ammonia (18-72) umol/L TSH (0.300-4.500) uIu/ml Urine Color Urine Appearance (Clear) Urine pH (4.5-7.5) Ur Specific [place] (1.000-1.030) Urine Protein (Negative) Urine Glucose (UA) (Negative) Urine Ketones (Negative) Urine Blood (Negative) Urine Nitrite (Negative) Urine Bilirubin (Negative) Urine Urobilinogen (Negative) Ur Leukocyte Esterase (Negative) Urine Osmolality (500-800) mOsm/kg Ur Random Sodium mmol/L Urine Comment Stool Occult Bld Scrn (Negative) Blood Type Antibody Screen Crossmatch 03/16/25 03/16/25 03/16/25 Range/Units 23:44 22:36 22:34 WBC (4.8-10.8) K/ul RBC (4.20-5.40) M/uL Hgb 6.2 L* (12.0-16.0) g/dl Hct 18.4 L* (37.0-47.0) % MCV (80.0-100.0) fL MCH (25.0-34.0) pg MCHC (32.0-36.0) g/dL RDW Std Deviation (36.4-46.3) fL RDW Coeff of [place] (11.5-14.5) % Plt Count (130-400) K/uL MPV (9.4-12.4) fL Immature Gran % (Auto) % Neut % (Auto) % Lymph % (Auto) % [place] % (Auto) % Eos % (Auto) % Baso % (Auto) % Neut # (Auto) (1.40-6.50) K/uL Lymph # (Auto) (1.20-3.40) K/uL [place] # (Auto) (0.11-0.59) K/uL Eos # (Auto) (0.00-0.50) K/uL Baso # (Auto) (0.00-0.20) K/uL Immature Gran # (Auto) (0.01-0.20) K/uL Absolute Nucleated RBC (0.00-0.12) K/uL Nucleated RBC % (auto) % PT 12.5 H (9.0-12.0) Seconds INR 1.2 H (0.9-1.1) Heparin Anti-Xa, Unfract < 0.10 L (0.3-0.7) IU/ml Sodium 127 L (136-145) mmol/L Potassium 3.3 L (3.5-5.1) mmol/L Chloride 95 L (98-107) mmol/L Carbon Dioxide 25 (21-32) mmol/L Anion Gap 7 (3-11) BUN 7 (6-23) mg/dl Creatinine 0.54 L (0.6-1.2) mg/dl Est Cr Clr Drug Dosing 111.3 ml/min eGFR 100.22 BUN/Creatinine Ratio 13.0 (10-20) Glucose 86 (70-99(Fasting)) mg/dl POC Glucose (70-99) mg/dl Osmolality 261 L (280-300) mOsm/kg Calcium 8.0 L (8.6-10.3) mg/dl Phosphorus (2.5-4.9) mg/dl Magnesium (1.7-2.4) mg/dl Ammonia 16.0 L (18-72) umol/L TSH 3.976 (0.300-4.500) uIu/ml Urine Color Yellow Urine Appearance Clear (Clear) Urine pH 7.0 (4.5-7.5) Ur Specific [place] 1.033 H (1.000-1.030) Urine Protein Negative (Negative) Urine Glucose (UA) Negative (Negative) Urine Ketones Trace H (Negative) Urine Blood Negative (Negative) Urine Nitrite Negative (Negative) Urine Bilirubin Negative (Negative) Urine Urobilinogen Negative (Negative) Ur Leukocyte Esterase Negative (Negative) Urine Osmolality (500-800) mOsm/kg Ur Random Sodium mmol/L Urine Comment Stool Occult Bld Scrn (Negative) Blood Type O Positive Antibody Screen NEGATIVE Crossmatch See Detail 03/16/25 03/16/25 Range/Units 20:55 16:03 WBC (4.8-10.8) K/ul RBC (4.20-5.40) M/uL Hgb (12.0-16.0) g/dl Hct (37.0-47.0) % MCV (80.0-100.0) fL MCH (25.0-34.0) pg MCHC (32.0-36.0) g/dL RDW Std Deviation (36.4-46.3) fL RDW Coeff of [place] (11.5-14.5) % Plt Count (130-400) K/uL MPV (9.4-12.4) fL Immature Gran % (Auto) % Neut % (Auto) % Lymph % (Auto) % [place] % (Auto) % Eos % (Auto) % Baso % (Auto) % Neut # (Auto) (1.40-6.50) K/uL Lymph # (Auto) (1.20-3.40) K/uL [place] # (Auto) (0.11-0.59) K/uL Eos # (Auto) (0.00-0.50) K/uL Baso # (Auto) (0.00-0.20) K/uL Immature Gran # (Auto) (0.01-0.20) K/uL Absolute Nucleated RBC (0.00-0.12) K/uL Nucleated RBC % (auto) % PT (9.0-12.0) Seconds INR (0.9-1.1) Heparin Anti-Xa, Unfract 0.25 L (0.3-0.7) IU/ml Sodium (136-145) mmol/L Potassium (3.5-5.1) mmol/L Chloride (98-107) mmol/L Carbon Dioxide (21-32) mmol/L Anion Gap (3-11) BUN (6-23) mg/dl Creatinine (0.6-1.2) mg/dl Est Cr Clr Drug Dosing ml/min eGFR BUN/Creatinine Ratio (10-20) Glucose (70-99(Fasting)) mg/dl POC Glucose 93 (70-99) mg/dl Osmolality (280-300) mOsm/kg Calcium (8.6-10.3) mg/dl Phosphorus (2.5-4.9) mg/dl Magnesium (1.7-2.4) mg/dl Ammonia (18-72) umol/L TSH (0.300-4.500) uIu/ml Urine Color Urine Appearance (Clear) Urine pH (4.5-7.5) Ur Specific [place] (1.000-1.030) Urine Protein (Negative) Urine Glucose (UA) (Negative) Urine Ketones (Negative) Urine Blood (Negative) Urine Nitrite (Negative) Urine Bilirubin (Negative) Urine Urobilinogen (Negative) Ur Leukocyte Esterase (Negative) Urine Osmolality (500-800) mOsm/kg Ur Random Sodium mmol/L Urine Comment Stool Occult Bld Scrn (Negative) Blood Type Antibody Screen Crossmatch Medications Administered Current Inpatient Medications Acetaminophen (Acetaminophen 500 Mg Tab) 1,000 mg PO Q8H [facility] Stop: 04/02/25 08:59 Last Admin: 03/17/25 09:42 Dose: 1,000 mg Al Hydrox/Mg Hydrox/Simethicone (Aluminum/Magnesium Susp 30 Ml Udc) 30 ml PO Q6H PRN PRN Reason: Dyspepsia Stop: 03/27/25 14:53 Last Admin: 03/10/25 18:41 Dose: 30 ml Amlodipine Besylate (Amlodipine Besylate 5 Mg Tab) 5 mg PO BID [facility] Stop: 03/27/25 20:59 Last Admin: 03/17/25 09:41 Dose: 5 mg Ascorbic Acid (Ascorbic Acid 500 Mg Tab) 500 mg PO DAILY [facility] Stop: 03/28/25 08:59 Last Admin: 03/17/25 09:41 Dose: 500 mg Bisacodyl (Bisacodyl 10 Mg Supp) 10 mg OK DAILY PRN PRN Reason: Constipation Stop: 03/27/25 14:53 Clotrimazole (Clotrimazole 1% Cr 15 Gm Tube) 1 appln EXT BID [facility] Stop: 04/11/25 20:59 Last Admin: 03/17/25 09:41 Dose: 1 appln Cyclobenzaprine HCl (Cyclobenzaprine Hcl 5 Mg Tab) 5 mg PO TID PRN PRN Reason: muscle spasms Stop: 04/02/25 09:29 Last Admin: 03/16/25 10:06 Dose: 5 mg Dextrose (Dextrose 50% 50 Ml Syringe) 25 - 50 ml IV UD PRN; Protocol PRN Reason: Hypoglycemia Protocol Stop: 04/04/25 10:53 Diphenhydramine HCl (Diphenhydramine Capsule 25 Mg Cap) 25 mg PO Q6H PRN PRN Reason: Allergic Rhinitis/Insomnia Stop: 03/27/25 14:53 Last Admin: 03/13/25 21:28 Dose: 25 mg Famotidine (Famotidine 20 Mg Tab) 20 mg PO Q12H PRN PRN Reason: Dyspepsia Stop: 03/27/25 14:53 Last Admin: 03/14/25 08:20 Dose: 20 mg Glucagon (Glucagon For Inj 1 Mg Vial) 1 mg SQ UD PRN; Protocol PRN Reason: Hypoglycemia Protocol Stop: 04/04/25 10:53 Glucose (Glucose 40% Gel 15 Gm Tube) 15 - 30 gm PO UD PRN; Protocol PRN Reason: Hypoglycemia Protocol Stop: 04/04/25 10:53 Glucose (Glucose 10 Tab/Tube) 4 - 8 tab PO UD PRN; Protocol PRN Reason: Hypoglycemia Protocol Stop: 04/04/25 10:53 Hydromorphone HCl (Hydromorphone Hcl 2 Mg Tab) 1 mg PO Q4H PRN PRN Reason: Pain Stop: 03/30/25 15:44 Last Admin: 03/17/25 10:56 Dose: 1 mg Hydroxyzine HCl (Hydroxyzine Hcl 25 Mg Tab) 25 mg PO Q8H PRN PRN Reason: Anxiety Stop: 03/27/25 14:53 Last Admin: 03/16/25 05:06 Dose: 25 mg Promethazine HCl (Phenergan) 12.5 mg in 50.5 mls @ 202 mls/hr IV Q6H PRN PRN Reason: Nausea And Vomiting Stop: 03/27/25 14:53 Heparin Sodium/Dextrose (Heparin 79976 Unit/500 Ml D5w) 25,000 units in 500 mls @ 0 mls/hr IV .Q0M PATRICK; Protocol Stop: 04/11/25 10:29 Last Titration: 03/16/25 21:24 Dose: 0 units/hr, 0 mls/hr Vancomycin HCl 1,750 mg/ (Sodium Chloride) 535 mls @ 200 mls/hr IV Q24H [facility] Stop: 04/26/25 13:59 Last Infusion: 03/16/25 17:15 Dose: Infused Ceftriaxone Sodium (Rocephin) 2,000 mg in 50 mls @ 100 mls/hr IV Q24H [facility] Stop: 04/27/25 05:59 Last Infusion: 03/17/25 06:21 Dose: Infused Influenza Virus Vaccine Quadrival (Do Not Administer Flu Vaccine) 1 each N/A PRN PRN PRN Reason: Notification Stop: 03/27/25 14:53 Lactobacillus Acidophilus (Advanced Probiotic 625 Mg Capsule) 1,250 mg PO DAILY [facility] Stop: 04/13/25 09:44 Last Admin: 03/17/25 09:41 Dose: 1,250 mg Lidocaine (Lidocaine 5% 1 Patch) 1 patch TD QAM [facility] Stop: 04/02/25 09:59 Last Admin: 03/17/25 09:41 Dose: 1 patch Losartan Potassium (Losartan Potassium 25 Mg Tab) 25 mg PO QAM [facility] Stop: 04/16/25 04:49 Last Admin: 03/17/25 05:45 Dose: 25 mg Magnesium Hydroxide (Magnesium Hydroxide Susp 30 Ml Udc) 30 ml PO Q24H PRN PRN Reason: Constipation Stop: 03/27/25 14:53 Last Admin: 03/08/25 21:05 Dose: 30 ml Magnesium Oxide (Magnesium Oxide 400 Mg Tab) 400 mg PO DAILY [facility] Stop: 03/28/25 08:59 Last Admin: 03/17/25 09:41 Dose: 400 mg Melatonin (Melatonin 3 Mg Tab) 6 mg PO HS PRN PRN Reason: Sleep Stop: 04/15/25 15:48 Miscellaneous (Remove Lidoderm Patch) 1 each N/A DAILY@2100 [facility] Stop: 04/02/25 20:59 Last Admin: 03/16/25 21:30 Dose: 1 each Miscellaneous (Carbohydrates For Hypoglycemia ) 15 - 30 gm PO UD PRN PRN Reason: Hypoglycemia Protocol Stop: 04/04/25 10:53 Miscellaneous Information (Vancomycin Consult Active) 1 each N/A UD PRN PRN Reason: Consult Stop: 04/10/25 17:12 Multivitamins (Multivitamin Tab) 1 tab PO DAILY [facility] Stop: 03/28/25 08:59 Last Admin: 03/17/25 09:41 Dose: 1 tab Naloxone HCl (Naloxone Hcl 0.4 Mg/1 Ml Vial/Carp) 0.1 mg IV Q5M PRN PRN Reason: Oversedation/Resp depression Stop: 03/27/25 14:53 Olanzapine (Olanzapine 10 Mg/2.1 Ml Sdv) 5 mg IM Q6H PRN PRN Reason: Agitation Stop: 04/16/25 02:21 Ondansetron HCl (Ondansetron Inj 2 Mg/Ml 2 Ml Vial) 4 mg IV Q6H PRN PRN Reason: Nausea &/or Vomiting Stop: 03/27/25 14:53 Ondansetron HCl (Ondansetron 4 Mg Od Tab) 4 mg PO Q6H PRN PRN Reason: Nausea Stop: 03/27/25 14:53 Last Admin: 02/26/25 18:26 Dose: 4 mg Oxycodone HCl (Oxycodone Hcl Ir 5 Mg Tab (Immediate Release)) 5 mg PO Q4H PRN PRN Reason: Pain Stop: 03/31/25 04:52 Pantoprazole Sodium (Pantoprazole 40 Mg Tab) 40 mg PO DAILYBL [facility] Stop: 03/30/25 10:29 Last Admin: 03/17/25 09:41 Dose: 40 mg Pneumococcal Polyvalent Vaccine (Do Not Administer Pneumococcal Vaccine) 1 each N/A PRN PRN PRN Reason: Notification Stop: 03/27/25 14:53 Polyethylene Glycol (Polyethylene (Miralax) 17 Gm Pack) 17 gm PO DAILY [facility] Stop: 04/09/25 08:59 Last Admin: 03/17/25 09:42 Dose: Not Given Rifampin (Rifampin 300 Mg Capsule) 300 mg PO BID [facility] Stop: 04/10/25 20:59 Last Admin: 03/17/25 09:41 Dose: 300 mg Senna/Docusate Sodium (Docusate Sodium/Senna 50/8.6mg Tab) 2 tab PO HS [facility] Stop: 03/27/25 20:59 Last Admin: 03/16/25 19:43 Dose: Not Given Sodium Biphosphate/Sodium Phosphate (Sod Phosphate/Sod Biphosphate Enema 132 Ml Btl) 132 ml OK ONE PRN PRN Reason: Constipation Stop: 03/27/25 14:53 Spironolactone (Spironolactone 25 Mg Tab) 25 mg PO QAM [facility] Stop: 03/31/25 08:59 Last Admin: 03/16/25 08:44 Dose: 25 mg Tramadol HCl (Tramadol Hcl 50 Mg Tablet) 50 mg PO Q4H PRN PRN Reason: Pain Stop: 04/12/25 11:27 Last Admin: 03/16/25 10:06 Dose: 50 mg Vitamin D (Cholecalciferol 25 Mcg (1000 Units) Tab) 25 mcg PO DAILY [facility] Stop: 03/28/25 08:59 Last Admin: 03/17/25 09:41 Dose: 25 mcg Warfarin Sodium (Warfarin Sod 3 Mg Tab) 3 mg PO DAILY@1600 [facility] Stop: 04/15/25 15:59 Last Admin: 03/16/25 17:11 Dose: Not Given Zolpidem Tartrate (Zolpidem Tartrate 5 Mg Tab) 10 mg PO HS PRN PRN Reason: Sleep Stop: 03/27/25 14:59 Last Admin: 03/14/25 21:29 Dose: 10 mg
[2025-03-17] MEDS ORDERED: PHA DELIRIUM CONSULT PRN (12:50)
[2025-03-17] MEDS: FOLIC ACID 1 MG in SYRINGE 9.8 ML IV SCH (16:22)
--- NOTE | 2025-03-17 16:24 | CT Scan Report ---
EXAM: CT Head Without Intravenous Contrast INDICATION: Follow-up prior to resuming heparin. TECHNIQUE: Axial computed tomography images of the head/brain without intravenous contrast. Sagittal and/or coronal reformats are provided. Sagittal and coronal reformatted images were created and reviewed. This CT exam was performed using one or more of the following dose reduction techniques: automated exposure control, adjustment of the mA and/or kV according to patient size, and/or use of iterative reconstruction technique. COMPARISON: 03/06/2025 FINDINGS: Limitations: None. Brain and extra-axial spaces: There is age appropriate cortical atrophy and chronic ischemic periventricular white matter hypodensity. No acute infarct, hemorrhage or mass noted. Bones/joints: No acute changes. Soft tissues: No significant abnormality noted. Vasculature: Intracranial atherosclerosis noted most prominently involving the vertebral arteries. Sinuses: No layering fluid in the visualized portions of the paranasal sinuses. Mastoid air cells: No mastoid effusion. Orbits: No significant abnormality noted. IMPRESSION: No acute abnormality. Stable chronic changes comparing to the most recent examination available of 03/06/2025. ACT 112: N/A Electronically signed by Krystle Cruz 03-17-2025 4:24 PM
[2025-03-17] MEDS: SODIUM CHLORIDE 0.9% 500 ML IV ONE (16:30)
[2025-03-17] MEDS: THIAMINE HCL 200 MG in SODIUM CHLORIDE 0.9% 50 ML IV SCH (16:30)
[2025-03-17] MEDS ORDERED: Heparin IV Adult Wt-Based Standard *NO* INITIAL Bolus Protocol IV STA (16:37)
[2025-03-17] MEDS: NYSTATIN SUSP 500,000 U/5 ML UDC PO SCH (16:58)
[2025-03-17] MEDS: MELATONIN 3 MG TAB PO PRN (19:46)
[2025-03-17] MEDS: ERTAPENEM 1000MG 1,000 MG/10 ML SYR IV SCH (19:56)
[2025-03-18] MEDS: ACETAMINOPHEN 1,000 MG/100 ML VIAL IV SCH (00:10)
[2025-03-18] MEDS: STOP ORDER: HEPARIN ONE (00:11)
[2025-03-18 04:37] LABS: Hematocrit (blood only) 24.5 % (37.0-47.0); Hemoglobin 8.0 g/dl (12.0-16.0); Mean Corpuscular Hemoglobin 26.5 pg (25.0-34.0); Mean Corpuscular Volume 81.1 fL (80.0-100.0); Platelet Count 289 K/uL (130-400); RDW Standard Deviation 47.8 fL (36.4-46.3); Red Blood Count 3.02 M/uL (4.20-5.40); White Blood Count 10.68 K/ul (4.8-10.8)
[2025-03-18 04:55] LABS: ANTI-Xa, UFH(UnfractionatedHep < 0.10 IU/ml (0.3-0.7)
[2025-03-18 04:59] LABS: INR 1.5 (0.9-1.1); Prothrombin Time 15.9 Seconds (9.0-12.0)
[2025-03-18 05:01] LABS: Anion Gap 9.0 (3-11); Blood Urea Nitrogen 9.0 mg/dl (6-23); Calcium 8.2 mg/dl (8.6-10.3); Carbon Dioxide 26.0 mmol/L (21-32); Chloride 95.0 mmol/L (98-107); Creatinine Clr Calc Pharmacy 75.4 ml/min; Glucose 74.0 mg/dl (70-99(Fasting)); Magnesium 1.6 mg/dl (1.7-2.4); Potassium 3.4 mmol/L (3.5-5.1); Sodium 130.0 mmol/L (136-145)
[2025-03-18] MEDS: MAGNESIUM SULFATE / D5W 1 GM/100 ML BAG IV ONE (06:08)
--- NOTE | 2025-03-18 07:49 | Hospitalist Progress Note ---
Date of Service March 18, 2025 Assessment & Plan (1) Acute blood loss anemia: (2) Other spondylosis with radiculopathy, lumbar region: (3) Tachycardia: (4) Leukocytosis: (5) Hyponatremia: (6) Hypertension: (7) Hyperlipidemia: (8) Rheumatoid arthritis: Plan Per previous hospitalist w/ addendum: This is a 69 year old female with PMH significant for hypertension, hyperlipidemia, rheumatoid arthritis, palpitations, history of bilateral pulmonary emboli, and lumbar spondylosis with radiculopathy who underwent L1-L5 decompression and fusion on 02/25/[address] Nova. We have been consulted for post operative medical management. Spondylosis with radiculopathy, lumbar region Post-op spinal epidural abscess s/p washout during revision surgery on 03/07 L1-L5 decompression and fusion by Dr. Nova on February 25 complicated by fluid collection, fall with end plate fractures -Post-op lumbar Spine MRI 03/04 due to ongoing BLE weakness and pain * 15x5.1x3.1 cm fluid collection R aspect of subcu fat extending from level L1 vertebra down to level opposite L5 vertebra -Patient fell due overnight and 03/05 CT lumbar spine revealed end plate fracture L4 and pedicle fx of L5 on the right, prompting revision surgery on 03/07 -S/p removal of posterior segmental instrumentation L2 L4-L5, revision decompression with bilateral foraminotomies L4-L5, kyphoplasty L2 L4 and L5 shruthi tebral bodies, revision fusion L4-L5, L5-S1 -Epidural space and lumbar fascia OR cultures growing E coli and Morganella, sensitive to Ertapenem which was started on 03/08 - cultx also grows Staph epi and Corynebacterium -Follow blood cultures -ID consulted for further recs given duration of abx, likely to need for suppres sive therapy given hardware -recommended Rocephin 2g q24hrs, Vancomycin for 6 weeks and po rifampin 300mg BID x 3 months - discussed w/ ID and confirmed the recommended regimen Monitor CRP every other week and CBC, CMP , vancomycin level every week while being on IV antibiotics. After completion of IV antibiotic, she will need suppressive antibiotic given the hardware in which will be Bactrim, unfortunately no option for staph epidermidis given the sensitivities results. -WBC downtrending from 30 -> 24 -> 13K -> 12K ->13K , remains afebrile (pt also on tylenol for pain, which could hinder fever but trying to eliminate opioids or other meds that can alter mental status) -Dr. Nova recommending continued PT/OT and discharge to acute rehab. Discussed on (03/15) current progress (still on IV heparin, needing PICC line), also discussed w/ Coni MO pt having difficulty w/ movement / staying in chair for any prolonged time) -Continue incentive spirometry, encourage movement as able 03/17 Per RN surg. dressings now saturated, will obtain cultx, and will notify surg. team 03/18 Plan for I&D today, swab cultx pending CT abd/pelvis obtained overnight - 1. There is a 3 cm AP x 3.2 cm transverse by 11 cm craniocaudad subcutaneous fluid collection along the lumbar spine incision site. There is a 3 cm cluster of antibiotic granules within this fluid collection inferiorly. No internal gas or surrounding inflammation. Likely seroma. 2. The appendix is normal. Bowel loops are nondilated. No pneumoperitoneum, free fluid, or acute inflammatory changes are seen involving the bowel. 3. Previous multilevel lumbar spine fusion, instrumentation, and laminectomy with hardware consisting of pedicle screws attached to posterolateral rods extending from L2 through S1. The hardware is intact. No acute fracture or subluxation is seen. Pulmonary Emboli Pt with hypoxia and tachycardia on 03/12, requiring 2-3L of oxygen CTA chest obtained which noted pulmonary emboli bilaterally throughout the lungs EKG noting sinus tachycardia Echo ordered to confirm no heart strain IV heparin ordered, started warfarin Continue to monitor on telemetry Overnight heparin held as Hgb 6.2 - this may have been incorrect value - pt reported they had difficulty getting blood work. received 1 unit of pRBC and Hgb stable, FOBT negative Consider restarting heparin Acute blood loss anemia 2/ surgery as above Hgb 7.8 on 03/14 Hgb 7.6 on 03/15 Hgb 7.6 on 03/16 Hgb 8.8 on 03/17 - after blood transfusion Hgb 8.0 on 03/18 overnight Hgb checked and was down at 6.2 - however likely not correct value - per had difficulty obtaining blood work on her received 1 unit of pRBC -> Current Hgb 8.8 on 6/22 FOBT checked and negative, stool seen - light brown IV heparin was restarted and put on hold this AM prior to procedure - 03/18 Chronic Hyponatremia Na 130-132 Patient notes poor PO intake Hold HCTZ and monitor sodium levels Pre-Diabetes Steroid induced hyperglycemia -> resolved A1C 6.3 BSG elevated likely in setting of IV steroids, has downtrended since steroids dc'd on 03/09 Discontinued SSI, monitor BSG on AM BMP Hypertension Continue home amlodipine, spironolactone Hold HCTZ for low sodium Rheumatoid arthritis Hold leflunomide Thank you for this consultation. We will follow the patient with you during their hospital stay. You can reach [facility] via [employer]. Admission and Anticipated Discharge Date Admission Date: February 25, 2025 Subjective Pt seen in follow up Hx of spinal surgery w/ complication/ abscess, required revision This AM pt sleeping, resting, pt's at the bedside and says this is for the first time in a while that she is really sleeping. Came back at 11 am to check on her, she was awake, and able to talk to me in full sentences and coherent. Updated her about plan for I&D w/ Dr. Nova today. Iv heparin on hold Review of Systems Review of Systems: All systems reviewed & are unremarkable except as noted in Subjective Physical Exam Physical Exam: General: obese F in NAD, awake, and able to converse appropriately and w/o difficulty HEENT: NC/AT CV: RRR Resp: Breath sounds clear anteriorly, no increased effort of breathing Abdomen: Soft, nontender, +obese Extremities: No edema in lower extremities bilaterally, moves LE extremities but w/ difficulty, moves UEs w/o any difficulty Results & Data Results & Data Vital Signs (Past 12 Hours) Vital Signs Temp Pulse Pulse Resp BP Pulse Ox O2 Del Method 03/18/25 07:45 36.4 C L 86 17 137/81 93 Room Air 03/18/25 03:13 36.6 C 90 16 115/76 95 Room Air 03/18/25 00:58 100 H 03/17/25 23:32 36.9 C 91 H 17 111/80 94 Room Air 03/17/25 20:16 Room Air 03/17/25 20:00 36.8 C 88 16 145/72 H 98 Laboratory Results 06/03/17/25 03/17/25 Range/Units 04:22 Unknown 09:57 WBC 10.68 (4.8-10.8) K/ul RBC 3.02 L (4.20-5.40) M/uL Hgb 8.0 L (12.0-16.0) g/dl Hct 24.5 L (37.0-47.0) % MCV 81.1 (80.0-100.0) fL MCH 26.5 (25.0-34.0) pg MCHC 32.7 (32.0-36.0) g/dL RDW Std Deviation 47.8 H (36.4-46.3) fL RDW Coeff of Neto 17.0 H (11.5-14.5) % Plt Count 289 (130-400) K/uL MPV 9.3 L (9.4-12.4) fL PT 15.9 H (9.0-12.0) Seconds INR 1.5 H (0.9-1.1) Heparin Anti-Xa, Unfract < 0.10 L (0.3-0.7) IU/ml Sodium 130 L (136-145) mmol/L Potassium 3.4 L (3.5-5.1) mmol/L Chloride 95 L (98-107) mmol/L Carbon Dioxide 26 (21-32) mmol/L Anion Gap 9 (3-11) BUN 9 (6-23) mg/dl Creatinine 0.79 (0.6-1.2) mg/dl Est Cr Clr Drug Dosing 75.4 ml/min eGFR 81.43 BUN/Creatinine Ratio 11.4 (10-20) Glucose 74 (70-99(Fasting)) mg/dl Calcium 8.2 L (8.6-10.3) mg/dl Phosphorus 4.0 D (2.5-4.9) mg/dl Magnesium 1.6 L (1.7-2.4) mg/dl Stool Occult Bld Scrn Negative Negative (Negative) Random Vancomycin 19.1 (10-20) mcg/ml 03/17/25 Range/Units 08:10 WBC (4.8-10.8) K/ul RBC (4.20-5.40) M/uL Hgb 8.8 L (12.0-16.0) g/dl Hct 27.0 L (37.0-47.0) % MCV (80.0-100.0) fL MCH (25.0-34.0) pg MCHC (32.0-36.0) g/dL RDW Std Deviation (36.4-46.3) fL RDW Coeff of Neto (11.5-14.5) % Plt Count (130-400) K/uL MPV (9.4-12.4) fL PT (9.0-12.0) Seconds INR (0.9-1.1) Heparin Anti-Xa, Unfract (0.3-0.7) IU/ml Sodium 129 L (136-145) mmol/L Potassium (3.5-5.1) mmol/L Chloride (98-107) mmol/L Carbon Dioxide (21-32) mmol/L Anion Gap (3-11) BUN (6-23) mg/dl Creatinine (0.6-1.2) mg/dl Est Cr Clr Drug Dosing ml/min eGFR BUN/Creatinine Ratio (10-20) Glucose (70-99(Fasting)) mg/dl Calcium (8.6-10.3) mg/dl Phosphorus (2.5-4.9) mg/dl Magnesium (1.7-2.4) mg/dl Stool Occult Bld Scrn (Negative) Random Vancomycin (10-20) mcg/ml Medications Administered Current Inpatient Medications Acetaminophen (Acetaminophen 500 Mg Tab) 1,000 mg PO Q8H [facility] Stop: 04/02/25 08:59 Last Admin: 03/17/25 17:54 Dose: 1,000 mg Al Hydrox/Mg Hydrox/Simethicone (Aluminum/Magnesium Susp 30 Ml Udc) 30 ml PO Q6H PRN PRN Reason: Dyspepsia Stop: 03/27/25 14:53 Last Admin: 03/10/25 18:41 Dose: 30 ml Amlodipine Besylate (Amlodipine Besylate 5 Mg Tab) 5 mg PO BID [facility] Stop: 03/27/25 20:59 Last Admin: 03/17/25 19:34 Dose: 5 mg Ascorbic Acid (Ascorbic Acid 500 Mg Tab) 500 mg PO DAILY [facility] Stop: 03/28/25 08:59 Last Admin: 03/17/25 09:41 Dose: 500 mg Bisacodyl (Bisacodyl 10 Mg Supp) 10 mg [place] DAILY PRN PRN Reason: Constipation Stop: 03/27/25 14:53 Clotrimazole (Clotrimazole 1% Cr 15 Gm Tube) 1 appln EXT BID [facility] Stop: 04/11/25 20:59 Last Admin: 03/17/25 19:32 Dose: 1 appln Cyclobenzaprine HCl (Cyclobenzaprine Hcl 5 Mg Tab) 5 mg PO TID PRN PRN Reason: muscle spasms Stop: 04/02/25 09:29 Last Admin: 03/16/25 10:06 Dose: 5 mg Dextrose (Dextrose 50% 50 Ml Syringe) 25 - 50 ml IV UD PRN; Protocol PRN Reason: Hypoglycemia Protocol Stop: 04/04/25 10:53 Diphenhydramine HCl (Diphenhydramine Capsule 25 Mg Cap) 25 mg PO Q6H PRN PRN Reason: Allergic Rhinitis/Insomnia Stop: 03/27/25 14:53 Last Admin: 03/13/25 21:28 Dose: 25 mg Famotidine (Famotidine 20 Mg Tab) 20 mg PO Q12H PRN PRN Reason: Dyspepsia Stop: 03/27/25 14:53 Last Admin: 03/14/25 08:20 Dose: 20 mg Glucagon (Glucagon For Inj 1 Mg Vial) 1 mg SQ UD PRN; Protocol PRN Reason: Hypoglycemia Protocol Stop: 04/04/25 10:53 Glucose (Glucose 40% Gel 15 Gm Tube) 15 - 30 gm PO UD PRN; Protocol PRN Reason: Hypoglycemia Protocol Stop: 04/04/25 10:53 Glucose (Glucose 10 Tab/Tube) 4 - 8 tab PO UD PRN; Protocol PRN Reason: Hypoglycemia Protocol Stop: 04/04/25 10:53 Hydromorphone HCl (Hydromorphone Hcl 2 Mg Tab) 1 mg PO Q4H PRN PRN Reason: Pain Stop: 03/30/25 15:44 Last Admin: 03/17/25 19:45 Dose: 1 mg Hydroxyzine HCl (Hydroxyzine Hcl 25 Mg Tab) 25 mg PO Q8H PRN PRN Reason: Anxiety Stop: 03/27/25 14:53 Last Admin: 03/16/25 05:06 Dose: 25 mg Promethazine HCl (Phenergan) 12.5 mg in 50.5 mls @ 202 mls/hr IV Q6H PRN PRN Reason: Nausea And Vomiting Stop: 03/27/25 14:53 Heparin Sodium/Dextrose (Heparin 80529 Unit/500 Ml D5w) 25,000 units in 500 mls @ 17 mls/hr IV .Q24H [facility]; Protocol Stop: 04/11/25 10:29 Last Titration: 03/17/25 18:57 Dose: 850 units/hr, 17 mls/hr Vancomycin HCl 1,750 mg/ (Sodium Chloride) 535 mls @ 200 mls/hr IV Q24H [facility] Stop: 04/26/25 13:59 Last Infusion: 03/17/25 18:16 Dose: Infused Thiamine HCl 200 mg/ Sodium (Chloride) 52 mls @ 210 mls/hr IV QAM [facility] Stop: 04/16/25 15:44 Last Infusion: 03/17/25 18:15 Dose: Infused Folic Acid 1 mg/ Syringe 10 mls @ [facility] Stop: 04/16/25 15:44 Last Admin: 03/17/25 16:22 Dose: 5 mls/min Acetaminophen (Ofirmev) 1,000 mg in 100 mls @ 400 mls/hr IV Q8 [facility] Stop: 03/21/25 00:00 Last Infusion: 03/18/25 06:13 Dose: Infused Ertapenem (Invanz 1000mg) 1,000 mg in 10 mls @ 2 mls/min IV Q24H [facility] Stop: 03/24/25 19:59 Last Admin: 03/17/25 19:56 Dose: 2 mls/min Potassium Chloride (K Oswaldo / Wtr) 10 meq in 100 mls @ 100 mls/hr IV Q1H [facility] Stop: 03/18/25 10:29 Influenza Virus Vaccine Quadrival (Do Not Administer Flu Vaccine) 1 each N/A PRN PRN PRN Reason: Notification Stop: 03/27/25 14:53 Lactobacillus Acidophilus (Advanced Probiotic 625 Mg Capsule) 1,250 mg PO DAILY [facility] Stop: 04/13/25 09:44 Last Admin: 03/17/25 09:41 Dose: 1,250 mg Lidocaine (Lidocaine 5% 1 Patch) 1 patch TD QAM [facility] Stop: 04/02/25 09:59 Last Admin: 03/17/25 09:41 Dose: 1 patch Losartan Potassium (Losartan Potassium 25 Mg Tab) 25 mg PO QAM [facility] Stop: 04/16/25 04:49 Last Admin: 03/17/25 05:45 Dose: 25 mg Magnesium Hydroxide (Magnesium Hydroxide Susp 30 Ml Udc) 30 ml PO Q24H PRN PRN Reason: Constipation Stop: 03/27/25 14:53 Last Admin: 03/08/25 21:05 Dose: 30 ml Magnesium Oxide (Magnesium Oxide 400 Mg Tab) 400 mg PO DAILY [facility] Stop: 03/28/25 08:59 Last Admin: 03/17/25 09:41 Dose: 400 mg Melatonin (Melatonin 3 Mg Tab) 6 mg PO HS PRN PRN Reason: Sleep Stop: 04/15/25 15:48 Last Admin: 03/17/25 19:46 Dose: 6 mg Miscellaneous (Remove Lidoderm Patch) 1 each N/A DAILY@2100 [facility] Stop: 04/02/25 20:59 Last Admin: 03/17/25 19:35 Dose: 1 each Miscellaneous (Carbohydrates For Hypoglycemia ) 15 - 30 gm PO UD PRN PRN Reason: Hypoglycemia Protocol Stop: 04/04/25 10:53 Miscellaneous (Pha Delirium Consult) 1 ea N/A PRN PRN PRN Reason: Consult Stop: 04/16/25 12:49 Miscellaneous Information (Vancomycin Consult Active) 1 each N/A UD PRN PRN Reason: Consult Stop: 04/10/25 17:12 Multivitamins (Multivitamin Tab) 1 tab PO DAILY [facility] Stop: 03/28/25 08:59 Last Admin: 03/17/25 09:41 Dose: 1 tab Naloxone HCl (Naloxone Hcl 0.4 Mg/1 Ml Vial/Carp) 0.1 mg IV Q5M PRN PRN Reason: Oversedation/Resp depression Stop: 03/27/25 14:53 Nystatin (Nystatin Susp 500,000 U/5 Ml Udc) 5 ml PO QID [facility] Stop: 03/19/25 13:29 Last Admin: 03/17/25 19:35 Dose: 5 ml Ondansetron HCl (Ondansetron Inj 2 Mg/Ml 2 Ml Vial) 4 mg IV Q6H PRN PRN Reason: Nausea &/or Vomiting Stop: 03/27/25 14:53 Ondansetron HCl (Ondansetron 4 Mg Od Tab) 4 mg PO Q6H PRN PRN Reason: Nausea Stop: 03/27/25 14:53 Last Admin: 02/26/25 18:26 Dose: 4 mg Oxycodone HCl (Oxycodone Hcl Ir 5 Mg Tab (Immediate Release)) 5 mg PO Q4H PRN PRN Reason: Pain Stop: 03/31/25 04:52 Pantoprazole Sodium (Pantoprazole 40 Mg Tab) 40 mg PO DAILYBL [facility] Stop: 03/30/25 10:29 Last Admin: 03/17/25 09:41 Dose: 40 mg Pneumococcal Polyvalent Vaccine (Do Not Administer Pneumococcal Vaccine) 1 each N/A PRN PRN PRN Reason: Notification Stop: 03/27/25 14:53 Polyethylene Glycol (Polyethylene (Miralax) 17 Gm Pack) 17 gm PO DAILY [facility] Stop: 04/09/25 08:59 Last Admin: 03/17/25 09:42 Dose: Not Given Rifampin (Rifampin 300 Mg Capsule) 300 mg PO BID [facility] Stop: 04/10/25 20:59 Last Admin: 03/17/25 19:36 Dose: 300 mg Senna/Docusate Sodium (Docusate Sodium/Senna 50/8.6mg Tab) 2 tab PO HS [facility] Stop: 03/27/25 20:59 Last Admin: 03/17/25 19:38 Dose: Not Given Spironolactone (Spironolactone 25 Mg Tab) 25 mg PO QAM [facility] Stop: 03/31/25 08:59 Last Admin: 03/16/25 08:44 Dose: 25 mg Tramadol HCl (Tramadol Hcl 50 Mg Tablet) 50 mg PO Q4H PRN PRN Reason: Pain Stop: 04/12/25 11:27 Last Admin: 03/16/25 10:06 Dose: 50 mg Vitamin D (Cholecalciferol 25 Mcg (1000 Units) Tab) 25 mcg PO DAILY [facility] Stop: 03/28/25 08:59 Last Admin: 03/17/25 09:41 Dose: 25 mcg Warfarin Sodium (Warfarin Sod 3 Mg Tab) 3 mg PO DAILY@1600 [facility] Stop: 04/15/25 15:59 Last Admin: 03/16/25 17:11 Dose: Not Given Zolpidem Tartrate (Zolpidem Tartrate 5 Mg Tab) 10 mg PO HS PRN PRN Reason: Sleep Stop: 03/27/25 14:59 Last Admin: 03/14/25 21:29 Dose: 10 mg
[2025-03-18] MEDS: POTASSIUM CHLORIDE / WTR 10 MEQ/100 ML PLCT IV SCH (08:13)
[2025-03-18] MEDS ORDERED: ROCURONIUM BROMIDE 10 MG/ML 5 ML VIAL IV ONE (09:35)
[2025-03-18] MEDS ORDERED: LIDOCAINE 2% 2 ML VIAL/AMP(20MG/ML) INFIL ONE (09:35)
[2025-03-18] MEDS ORDERED: DEXAMETHASONE SOD INJ 4 MG/ML VIAL ONE (09:35)
[2025-03-18] MEDS ORDERED: GLYCOPYRROLATE 0.2 MG/ML VIAL ONE (09:35)
[2025-03-18] MEDS ORDERED: SUGAMMADEX SODIUM 200 MG/2 ML VIAL IV ONE (09:35)
[2025-03-18] MEDS ORDERED: MIDAZOLAM HCL 1 MG/ML 2ML VIAL ONE (09:35)
[2025-03-18] MEDS ORDERED: PROPOFOL IV EMULSION 10 MG/ML 20 ML VIAL IV ONE (09:35)
[2025-03-18] MEDS ORDERED: ONDANSETRON INJ 2 MG/ML 2 ML VIAL ONE (09:35)
--- NOTE | 2025-03-18 12:28 | Pharmacy Report ---
Pharmacy PK ABX Note - Date of Service March 18, 2025 - Assessment and Plan Assessment 03/18 * Random vancomycin level this morning suggests therapeutic AUc/BRENDAN- will continue current regimen 03/14: * Reviewed random vancomycin level. Predicting therapeutic AUC/BRENDAN, continue current regimen. 03/12: * Random vancomycin level this AM was ~17 mcg/ml - will change vancomycin dosing to Q24 hour dosing as patient to be on medication x 6 weeks * Will start vancomycin 1750 mg iv q 24 hours. This dosing is associated with goal AUC/BRENDAN ~530. * Plan to repeat level in next 2-3 days to ensure stable dosing. 03/11 * 69 year old F receiving IV Vancomycin + Ceftriaxone + Rifampin PO for treat ment of spinal epidural abscess growing EColi, Morganella, and Staph epi. * Day # 1 of antimicrobial therapy. (Previously treated with Ertapenem). ID Consult. PLAN: Vancomycin * Continue 1750 mg iv q 24 hours Ceftriaxone was changed to ertapenem by hospitalist team on 03/17 Rifampin 300mg PO BID x 3 months Pharmacy will continue to follow and will adjust dose/frequency as necessary. Thank you. Pharmacy has transitioned to AUC monitoring for vancomycin. AUC/BRENDAN is the preferred PK/PD target and is associated with decreased risk of nephrotoxicity compared to traditional trough targets.
[2025-03-18] MEDS: POTASSIUM CHLORIDE CRTAB 20 MEQ TABCR PO STA (13:01)
[2025-03-18] MEDS: LACTATED RINGER'S 1,000 ML IV SCH (13:38)
--- NOTE | 2025-03-18 14:22 | History & Physical Bridge Note ---
Date of Service March 18, 2025 History & Physical Bridge Note I have examined the patient, reviewed the History & Physical and in the interval since the performance of the History & Physical I have noted the following changes of clinical significance: no changes noted Irrigation and debridement lumbar spine
--- NOTE | 2025-03-18 14:40 | Anesthesiology Consultation ---
Date of Service March 18, 2025 Assessment & Plan Chart Review Chart Review: Acceptable Risk for Surgery and Patient NOT seen in Pre Admission Testing Consults Requested none ASA ASA3 Proposed Anesthesia Anesthesia Type: General Risk / Benefits Reviewed With: PT / POA / Parent / Guardian, Accepts Plan and Informed Consent Obtained History Surgery Operation Date: 02/25/25 10:05 Proposed Procedures p L2-L5 Decompression and Fusion, Possible L1-L2 Decompression and Fusion, Spinal Cord Monitoring - Adriel Nova DO Operation Date: 03/06/25 13:55 Proposed Procedures p Incision and Drainage Lumbar Spine - Adriel Nova DO Operation Date: 03/07/25 07:45 Proposed Procedures p Incision and Drainage Lumbar Spine, L4-L5 Revision of Fusion, Spinal Cord Monitoring - Adriel Nova DO Operation Date: 03/18/25 08:55 Proposed Procedures p Incision and Drainage Lumbar Spine - Adriel Nova DO Height/Weight Height: 5 ft 4 in Weight: 93.4 kg Allergies Allergy/AdvReac Type Severity Reaction Status Date / Time ampicillin Allergy Severe Rash Verified 03/18/25 13:28 terbinafine Allergy Severe Diarrhea Verified 03/18/25 13:28 Medications Home Medications Medication Instructions Recorded Confirmed Last Taken amlodipine 5 mg tablet 5 mg PO BID 01/31/25 02/25/25 02/25/25 04:30 ascorbic acid (vitamin C) 500 mg 500 mg PO DAILY 01/31/25 02/25/25 02/24/25 09:00 tablet (Vitamin C) cholecalciferol (vitamin D3) 25 25 mcg PO DAILY 01/31/25 02/25/25 02/24/25 09:00 mcg (1,000 unit) capsule (Vitamin D3) etanercept 50 mg/mL (1 mL) 50 mg subcut WK 01/31/25 02/25/25 02/24/25 09:00 subcutaneous cartridge (Enbrel Mini) hydrochlorothiazide 25 mg tablet 25 mg PO QAM 01/31/25 02/25/25 02/24/25 09:00 leflunomide 10 mg tablet 10 mg PO QAM 01/31/25 02/25/25 02/17/25 09:00 magnesium 200 mg tablet 200 mg PO DAILY 01/31/25 02/25/25 02/23/25 09:00 multivitamin 1 tab PO DAILY 01/31/25 02/25/25 02/23/25 09:00 omega-3 fatty acids 1,000 mg PO DAILY 01/31/25 02/25/25 02/17/25 09:00 potassium chloride 10 mEq 20 meq PO QAM 01/31/25 02/25/25 02/24/25 09:00 tablet,extended release (Klor-Con) spironolactone 25 mg tablet 25 mg PO QAM 01/31/25 02/25/25 02/24/25 09:00 zolpidem 10 mg tablet 10 mg PO HS PRN prn 01/31/25 02/25/25 02/24/25 20:00 oxycodone 5 mg tablet 5 mg PO Q6H PRN pain #30 tabs 02/26/25 Unknown tramadol 50 mg tablet 50 mg PO Q6H PRN pain, moderate 02/26/25 Unknown #30 tabs aspirin 81 mg tablet 81 mg PO DAILY 02/28/25 02/28/25 Unknown rifampin 300 mg capsule 300 mg PO BID #60 caps 03/15/25 Unknown Active Medications Generic Name Dose Route Start Last Admin Trade Name Freq PRN Reason Stop Dose Admin Acetaminophen 1,000 mg 03/03/25 09:00 03/17/25 17:54 Acetaminophen 500 Mg Tab PO 04/02/25 08:59 1,000 mg Q8H PATRICK Administration Al Hydrox/Mg Hydrox/Simethicone 30 ml 02/25/25 14:54 03/10/25 18:41 Aluminum/Magnesium Susp 30 Ml Udc PO 03/27/25 14:53 30 ml Q6H PRN Administration Dyspepsia Amlodipine Besylate 5 mg 02/25/25 21:00 03/18/25 13:08 Amlodipine Besylate 5 Mg Tab PO 03/27/25 20:59 5 mg BID PATRICK Administration Ascorbic Acid 500 mg 02/26/25 09:00 03/18/25 08:14 Ascorbic Acid 500 Mg Tab PO 03/28/25 08:59 Not Given DAILY PATRICK Clotrimazole 1 appln 03/12/25 21:00 03/18/25 08:16 Clotrimazole 1% Cr 15 Gm Tube EXT 04/11/25 20:59 1 appln BID PATRICK Administration Cyclobenzaprine HCl 5 mg 03/04/25 09:53 03/16/25 10:06 Cyclobenzaprine Hcl 5 Mg Tab PO 04/02/25 09:29 5 mg TID PRN Administration muscle spasms Diphenhydramine HCl 25 mg 02/25/25 14:54 03/13/25 21:28 Diphenhydramine Capsule 25 Mg Cap PO 03/27/25 14:53 25 mg Q6H PRN Administration Allergic Rhinitis/Insomnia Famotidine 20 mg 02/25/25 14:54 03/14/25 08:20 Famotidine 20 Mg Tab PO 03/27/25 14:53 20 mg Q12H PRN Administration Dyspepsia Hydromorphone HCl 1 mg 03/16/25 15:45 03/17/25 19:45 Hydromorphone Hcl 2 Mg Tab PO 03/30/25 15:44 1 mg Q4H PRN Administration Pain Hydroxyzine HCl 25 mg 02/25/25 14:54 03/16/25 05:06 Hydroxyzine Hcl 25 Mg Tab PO 03/27/25 14:53 25 mg Q8H PRN Administration Anxiety Heparin Sodium/Dextrose 25,000 units in 500 mls @ 17 mls/hr 03/12/25 10:30 03/17/25 18:57 Heparin 01525 Unit/500 Ml D5w IV 04/11/25 10:29 850 units/hr .Q24H PATRICK 17 mls/hr Titration Protocol 850 UNITS/HR Vancomycin HCl 1,750 mg/ 535 mls @ 200 mls/hr 03/12/25 14:00 03/18/25 14:12 Sodium Chloride IV 04/26/25 13:59 200 mls/hr Q24H PATRICK Administration Thiamine HCl 200 mg/ Sodium 52 mls @ 210 mls/hr 03/17/25 15:45 03/18/25 10:34 Chloride IV 04/16/25 15:44 Infused QAM PATRICK Infusion Folic Acid 1 mg/ Syringe 10 mls @ 5 mls/min 03/17/25 15:45 03/18/25 08:17 IV 04/16/25 15:44 5 mls/min QAM PATRICK Administration Acetaminophen 1,000 mg in 100 mls @ 400 mls/hr 03/18/25 00:00 03/18/25 12:55 Ofirmev IV 03/21/25 00:00 400 mls/hr Q8 PATRICK Infusion Ertapenem 1,000 mg in 10 mls @ 2 mls/min 03/17/25 20:00 03/17/25 19:56 Invanz 1000mg IV 03/24/25 19:59 2 mls/min Q24H PATRICK Administration Lactated Ringer's 1,000 mls @ 15 mls/hr 03/18/25 13:45 03/18/25 13:38 Lr IV 03/21/25 13:44 15 mls/hr .Q24H PATRICK Administration Lactobacillus Acidophilus 1,250 mg 03/14/25 09:45 03/18/25 08:14 Advanced Probiotic 625 Mg Capsule PO 04/13/25 09:44 Not Given DAILY PATRICK Lidocaine 1 patch 03/03/25 10:00 03/18/25 08:16 Lidocaine 5% 1 Patch TD 04/02/25 09:59 1 patch QAM PATRICK Administration Losartan Potassium 25 mg 03/17/25 04:50 03/18/25 08:14 Losartan Potassium 25 Mg Tab PO 04/16/25 04:49 Not Given QAM PATRICK Magnesium Hydroxide 30 ml 02/25/25 14:54 03/08/25 21:05 Magnesium Hydroxide Susp 30 Ml Udc PO 03/27/25 14:53 30 ml Q24H PRN Administration Constipation Magnesium Oxide 400 mg 02/26/25 09:00 03/18/25 08:14 Magnesium Oxide 400 Mg Tab PO 03/28/25 08:59 Not Given DAILY PATRICK Melatonin 6 mg 03/17/25 02:21 03/17/25 19:46 Melatonin 3 Mg Tab PO 04/15/25 15:48 6 mg HS PRN Administration Sleep Miscellaneous 1 each 03/03/25 21:00 03/17/25 19:35 Remove Lidoderm Patch N/A 04/02/25 20:59 1 each DAILY@2100 PATRICK Administration Multivitamins 1 tab 02/26/25 09:00 03/18/25 08:14 Multivitamin Tab PO 03/28/25 08:59 Not Given DAILY PATRICK Nystatin 5 ml 03/17/25 13:30 03/18/25 12:38 Nystatin Susp 500,000 U/5 Ml Udc PO 03/19/25 13:29 5 ml QID PATRICK Administration Ondansetron HCl 4 mg 02/25/25 14:54 02/26/25 18:26 Ondansetron 4 Mg Od Tab PO 03/27/25 14:53 4 mg Q6H PRN Administration Nausea Pantoprazole Sodium 40 mg 02/28/25 10:30 03/18/25 08:15 Pantoprazole 40 Mg Tab PO 03/30/25 10:29 Not Given DAILYBL PATRICK Polyethylene Glycol 17 gm 03/10/25 09:00 03/18/25 08:14 Polyethylene (Miralax) 17 Gm Pack PO 04/09/25 08:59 Not Given DAILY PATRICK Rifampin 300 mg 03/11/25 21:00 03/18/25 10:31 Rifampin 300 Mg Capsule PO 04/10/25 20:59 300 mg BID PATRICK Administration Senna/Docusate Sodium 2 tab 02/25/25 21:00 03/17/25 19:38 Docusate Sodium/Senna 50/8.6mg Tab PO 03/27/25 20:59 Not Given HS PATRICK Spironolactone 25 mg 03/01/25 09:00 03/16/25 08:44 Spironolactone 25 Mg Tab PO 03/31/25 08:59 25 mg QAM PATRICK Administration Tramadol HCl 50 mg 03/13/25 11:28 03/16/25 10:06 Tramadol Hcl 50 Mg Tablet PO 04/12/25 11:27 50 mg Q4H PRN Administration Pain Vitamin D 25 mcg 02/26/25 09:00 03/18/25 08:14 Cholecalciferol 25 Mcg (1000 Units) Tab PO 03/28/25 08:59 Not Given DAILY PATRICK Warfarin Sodium 3 mg 03/16/25 16:00 03/16/25 17:11 Warfarin Sod 3 Mg Tab PO 04/15/25 15:59 Not Given DAILY@1600 PATRICK Zolpidem Tartrate 10 mg 02/25/25 15:00 03/14/25 21:29 Zolpidem Tartrate 5 Mg Tab PO 03/27/25 14:59 10 mg HS PRN Administration Sleep NPO Date Last Intake of Fluids: 03/17/25 Time Last Intake of Fluids: 23:59 Last Intake of Fluids Comment: Sip with med on unit Date Last Intake of Solids: 03/17/25 Time Last Intake of Solids: 17:00 Past Medical History Medical History History of UTI Rheumatoid arthritis Follows with Dr Ho/RAMANA [place] History of DVT (deep vein thrombosis) (2019) BL AQUILINO, was on AC x4 months (then discontinued) No issues since Hypertension Exercise / Class Metabolic Activity II 4-5 Yardwork/Stairs/Walk up hill Past Surgical History Surgical History History of colonoscopy History of neuroma removal- right foot History of wisdom tooth extraction History of bunionectomy of both great toes History of tonsillectomy History of cataract surgery R/L History of cardiac cath (~2019) no stents Past Anesthesia History No Hx of Anesthesia Complications and No Family Hx of Anesthesia Complications History of PONV No Hx of PONV and No Hx of Motion Sickness Social History Smoking Status: Never smoker Do You Dip or Chew Tobacco: No Hx Alcohol Use: Yes alcohol intake frequency: holidays/special occasions only Hx Substance Use: No substance use type: does not use Physical Exam Vital Signs Last Vital Signs Temp 37 C 03/18/25 13:29 Pulse 100 H 03/18/25 13:59 Resp 20 03/18/25 13:29 BP 158/88 H 03/18/25 13:29 Pulse Ox 94 03/18/25 13:29 O2 Del Method Room Air 03/18/25 13:29 O2 Flow Rate 2 03/17/25 14:47 FiO2 2 02/25/25 19:10 ENMT Mouth: no dentition abnormality Thyromental Distance: > or= 3.5 Finger Breadths Mallampati Class: II Neck normal visual inspection Respiratory normal respiratory effort Auscultation: lungs clear to auscultation bilaterally Cardiovascular Rate/Rhythm: regular rate and regular rhythm Psychiatric Orientation: alert Testing Laboratory Results 03/18/25 04:22 03/18/25 04:22 PT 15.9 Seconds (9.0-12.0) H 03/18/25 04:22 INR 1.5 (0.9-1.1) H 03/18/25 04:22 APTT 21 Seconds (21-31) 03/12/25 10:34 Hemoglobin A1c 6.3 % (4.5-5.6) H 03/06/25 05:24 Urine Color Yellow 03/16/25 23:44 Urine Appearance Clear (Clear) 03/16/25 23:44 Urine pH 7.0 (4.5-7.5) 03/16/25 23:44 Ur Specific Guild 1.033 (1.000-1.030) H 03/16/25 23:44 Urine Protein Negative (Negative) 03/16/25 23:44 Urine Glucose (UA) Negative (Negative) 03/16/25 23:44 Urine Ketones Trace (Negative) H 03/16/25 23:44 Urine Nitrite Negative (Negative) 03/16/25 23:44 Ur Leukocyte Esterase Negative (Negative) 03/16/25 23:44 Urine WBC (Auto) 0-5 /hpf (0-5) 03/01/25 13:50 Urine RBC (Auto) 0-2 /hpf (0-2) 03/01/25 13:50 U Hyaline Cast (Auto) 6-10 /lpf (0-2) H 03/01/25 13:50 U Epithel Cells (Auto) 11-20 /hpf (0-2) H 03/01/25 13:50 Urine Bacteria (Auto) 1+ (None Seen) H 03/01/25 13:50 Blood Type O Positive 03/16/25 22:34 Antibody Screen NEGATIVE 03/16/25 22:34 03/16/25 09:08 Aerobic Blood Culture - Preliminary Blood No growth in Aerobic bottle after 48 hours. Anaerobic Blood Culture - Preliminary No growth in Anaerobic bottle after 48 hours. 03/16/25 09:10 Aerobic Blood Culture - Preliminary Blood No growth in Aerobic bottle after 48 hours. Anaerobic Blood Culture - Preliminary No growth in Anaerobic bottle after 48 hours. 03/17/25 Unknown Gram Stain - Final Back,Lower Aerobic and Anaerobic Culture - Preliminary Terrie albicans/dubliniensis 03/08/25 10:33 Aerobic Blood Culture - Final Blood No growth in Aerobic bottle after 5 days. Anaerobic Blood Culture - Final No growth in Anaerobic bottle after 5 days. 03/08/25 10:28 Aerobic Blood Culture - Final Blood No growth in Aerobic bottle after 5 days. Anaerobic Blood Culture - Final No growth in Anaerobic bottle after 5 days. 03/07/25 Unknown Gram Stain - Final Back Aerobic and Anaerobic Culture - Final Escherichia coli Morganella morganii Staphylococcus epidermidis Corynebacterium tuberculostear 03/07/25 Unknown Gram Stain - Final Back Aerobic and Anaerobic Culture - Final Escherichia coli Morganella morganii Staphylococcus epidermidis 03/18/25 10:47 POC Glucose 74 Electrocardiogram Date: 02/27/25 Sinus tachycardia with occasional Premature ventricular complexes Cannot rule out Anterior infarct , age undetermined Abnormal ECG When compared with ECG of 11-Feb-2025 11:55, Minimal criteria for Anterior infarct are now Present Confirmed by Daniel Quintanilla ([id number]) on 03/01/2025 11:08:33 PM Chest X-Ray Date: 02/11/25 Findings: + NAD Other Testing C-spine xray Date: 02/11/25 FINDINGS: There is moderate lower cervical degenerative disc disease. There is grade 1 anterolisthesis of C3 on 4 and C4 on 5 on the neutral view, which reduces with extension at C3-4 and remains stable at C4-5. No fracture seen. IMPRESSION: Translational motion at C3-4.
--- NOTE | 2025-03-18 15:34 | Operative Report ---
Post Operative Report Pre & Post Diagnosis Operation Date: 03/18/25 08:55 Pre-Op Diagnosis: Spinal epidural abscess Post-Op Diagnosis: Spinal epidural abscess I identified the patient and participated in the time-out.: Yes Procedure Operation Date: 03/18/25 08:55 Actual Procedures Irrigation debridement lumbar spine Surgeon Adriel Nova, DO [employer] Andrew Esteves Estimated Blood Loss 20 Findings Consistent with Post-Op Diagnosis Excess fluid noted in the epidural space. It was cloudy. Is suspicious for infection. Specimens Cultures of epidural space. Indications This is a 69-year-old female with a status post lumbar fusion ultimately requiring revision fusion with evacuation of abscess. Her incision is showing signs of erythema with drainage. Subsequently she is here for repeat I&D. Description of Procedure Patient met with identified informed sent obtained. Patient was then taken to the operative suite underwent sedation placed in a prone position on the Dustin table on top of the Waqas frame. All bony prominences well-padded eyes inspected to ensure no external pressure placed upon them. This point lumbar spine was prepped and draped in normal sterile fashion. I then opened the incision to the fascial layer.'s fluid was noted. I then released the fascia and again excessive amounts of cloudy fluid was identified. It was suspicious for possible infection. Cultures were obtained. Several liters of saline with Ancef were then irrigated throughout the incision. I did debride all loose tissue to healthy appearing tissue. 215 round EMILY drains were inserted. The incision was then closed with 1 Vicryl the fascia interrupted Prolene was for skin closure and a negative pressure dressing applied. Patient was waken taken the PACU stable condition. Please note Andrew draper was present at the entire procedure involved patient positioning complex portion of the surgery and final skin closure. I attest to the content of the Intraoperative Record and any orders documented therein. Any exceptions are noted below.
[2025-03-18] MEDS: ceFAZolin 330 MG/ML 1 GM VIAL ONE (15:35)
[2025-03-18] MEDS: VANCOMYCIN HCL 1000MG/20ML VIAL ONE (15:36)
[2025-03-18] MEDS: GENTAMICIN SULFATE 40 MG/ML 2 ML VIAL ONE (15:36)
[2025-03-18] MEDS ORDERED: ONDANSETRON INJ 2 MG/ML 2 ML VIAL IV PRN (16:37)
[2025-03-18] MEDS ORDERED: ATROPINE SULFATE 0.1 MG/ML 10ML SYR IV PRN (16:37)
[2025-03-18] MEDS ORDERED: HYDROmorphone INJ 2 MG/ML SYR/VIAL IV PRN (16:37)
[2025-03-18] MEDS: HYDROmorphone INJ 0.5 MG/0.5 ML SYR ONE (16:45)
--- NOTE | 2025-03-18 17:04 | Anesthesiology Progress Note ---
Date of Service March 18, 2025 Anesthesia Post Procedure Vital Signs Vital Signs: Temp Pulse Pulse Pulse Resp BP BP 03/18/25 17:00 36.6 C 100 H 21 150/90 H 03/18/25 16:50 100 H 19 148/85 H 03/18/25 16:40 99 H 24 137/82 03/18/25 16:30 99 H 18 140/74 03/18/25 16:20 100 H 20 143/76 H 03/18/25 16:11 36.0 C L 101 H 18 142/76 H 03/18/25 13:59 100 H 03/18/25 13:29 37 C 96 H 20 158/88 H 03/18/25 10:56 36.5 C 92 H 17 146/85 H 03/18/25 10:37 92 H 03/18/25 10:37 03/18/25 07:45 36.4 C L 86 17 137/81 03/18/25 03:13 36.6 C 90 16 115/76 03/18/25 00:58 100 H 03/17/25 23:32 36.9 C 91 H 17 111/80 03/17/25 20:16 03/17/25 20:00 36.8 C 88 16 145/72 H 03/17/25 18:45 161/85 H Pulse Ox O2 Del Method O2 Flow Rate 03/18/25 17:00 93 Nasal Cannula 2 03/18/25 16:50 92 Nasal Cannula 2 03/18/25 16:40 94 Room Air 0 03/18/25 16:30 99 Room Air 0 03/18/25 16:20 96 Oxymask 4 03/18/25 16:11 98 Oxymask 4 03/18/25 13:59 03/18/25 13:29 94 Room Air 03/18/25 10:56 93 Room Air 03/18/25 10:37 03/18/25 10:37 Room Air 03/18/25 07:45 93 Room Air 03/18/25 03:13 95 Room Air 03/18/25 00:58 03/17/25 23:32 94 Room Air 03/17/25 20:16 Room Air 03/17/25 20:00 98 03/17/25 18:45 Pain Intensity Right Leg: Pain Intensity: 9 Back: Pain Intensity: 9 Bilateral Leg: Pain Intensity: 8 Left Hip: Pain Intensity: 10 Transfer of Care Handoff Completed per policy Notes Mental Status: alert / awake / arousable and participated in evaluation Patient Amnestic to Procedure: Yes Nausea / Vomiting: adequately controlled Pain: adequately controlled Airway Patency, RR, SpO2: stable & adequate BP & HR: stable & adequate Hydration State: stable & adequate Anesthetic Complications: no major complications apparent and Pt Satisfied with anesthetic care
[2025-03-19] MEDS: NYSTATIN 500,000 UNIT TAB PO SCH (04:02)
[2025-03-19 06:07] LABS: Hematocrit (blood only) 25.2 % (37.0-47.0); Hemoglobin 8.4 g/dl (12.0-16.0); Mean Corpuscular Hemoglobin 27.2 pg (25.0-34.0); Mean Corpuscular Volume 81.6 fL (80.0-100.0); Platelet Count 306 K/uL (130-400); RDW Standard Deviation 49.6 fL (36.4-46.3); Red Blood Count 3.09 M/uL (4.20-5.40); White Blood Count 9.47 K/ul (4.8-10.8)
[2025-03-19 06:20] LABS: ANTI-Xa, UFH(UnfractionatedHep < 0.10 IU/ml (0.3-0.7)
[2025-03-19 06:24] LABS: INR 1.4 (0.9-1.1); Prothrombin Time 15.2 Seconds (9.0-12.0)
[2025-03-19 06:27] LABS: Anion Gap 10.0 (3-11); Calcium 8.2 mg/dl (8.6-10.3); Carbon Dioxide 23.0 mmol/L (21-32); Chloride 97.0 mmol/L (98-107); Magnesium 1.7 mg/dl (1.7-2.4); Potassium 3.9 mmol/L (3.5-5.1); Sodium 130.0 mmol/L (136-145)
[2025-03-19 06:33] LABS: Blood Urea Nitrogen 9.0 mg/dl (6-23); Creatinine Clr Calc Pharmacy 93.9 ml/min; Glucose 71.0 mg/dl (70-99(Fasting))
--- NOTE | 2025-03-19 07:29 | Hospitalist Progress Note ---
Date of Service March 19, 2025 Assessment & Plan (1) Acute blood loss anemia: (2) Other spondylosis with radiculopathy, lumbar region: (3) Tachycardia: (4) Leukocytosis: (5) Hyponatremia: (6) Hypertension: (7) Hyperlipidemia: (8) Rheumatoid arthritis: Plan This is a 69 year old female with PMH significant for hypertension, hyperlipidemia, rheumatoid arthritis, palpitations, history of bilateral pulmonary emboli, and lumbar spondylosis with radiculopathy who underwent L1-L5 decompression and fusion on 02/25/[address] Nova. We have been consulted for post operative medical management. Spondylosis with radiculopathy, lumbar region Post-op spinal epidural abscess s/p washout during revision surgery on 03/07 L1-L5 decompression and fusion by Dr. Nova on February 25 complicated by fluid collection, fall with end plate fractures -Post-op lumbar Spine MRI 03/04 due to ongoing BLE weakness and pain * 15x5.1x3.1 cm fluid collection R aspect of subcu fat extending from level L1 vertebra down to level opposite L5 vertebra -Patient fell due overnight and 03/05 CT lumbar spine revealed end plate fracture L4 and pedicle fx of L5 on the right, prompting revision surgery on 03/07 -S/p removal of posterior segmental instrumentation L2 L4-L5, revision decompression with bilateral foraminotomies L4-L5, kyphoplasty L2 L4 and L5 vertebral bodies, revision fusion L4-L5, L5-S1 -Epidural space and lumbar fascia OR cultures growing E coli and Morganella, sensitive to Ertapenem which was started on 03/08 - cultx also grows Staph epi and Corynebacterium -Follow blood cultures -ID consulted for further recs given duration of abx, likely to need for suppressive therapy given hardware -recommended Rocephin 2g q24hrs, Vancomycin for 6 weeks and po rifampin 300mg BID x 3 months - discussed w/ ID and confirmed the recommended regimen Monitor CRP every other week and CBC, CMP , vancomycin level every week while being on IV antibiotics. After completion of IV antibiotic, she will need suppressive antibiotic given the hardware in which will be Bactrim, unfortunately no option for staph epidermidis given the sensitivities results. -WBC downtrending from 30 -> 24 -> 13K -> 12K ->13K -> 9.4K (normalized) , remains afebrile (pt also on tylenol for pain, which could hinder fever but trying to eliminate opioids or other meds that can alter mental status) -Dr. Nova recommending continued PT/OT and discharge to acute rehab. Discussed on (03/15) current progress (still on IV heparin, needing PICC line), also discussed w/ Coni MO pt having difficulty w/ movement / staying in chair for any prolonged time) -Continue incentive spirometry, encourage movement as able 03/17 Per RN surg. dressings now saturated, will obtain cultx, and will notify surg. team 03/18 Plan for I&D today, swab cultx pending 03/19 Pt s/p I&D w/ Dr. Nova cultx pending. Pt is afebrile, WBC normalized at 9.4K. Currently on Ertapenem, Vancomycin, Rifampin. Will need to re-consult w/ ID when repeat cultx available. CT abd/pelvis obtained overnight - 1. There is a 3 cm AP x 3.2 cm transverse by 11 cm craniocaudad subcutaneous fluid collection along the lumbar spine incision site. There is a 3 cm cluster of antibiotic granules within this fluid collection inferiorly. No internal gas or surrounding inflammation. Likely seroma. 2. The appendix is normal. Bowel loops are nondilated. No pneumoperitoneum, free fluid, or acute inflammatory changes are seen involving the bowel. 3. Previous multilevel lumbar spine fusion, instrumentation, and laminectomy with hardware consisting of pedicle screws attached to posterolateral rods extending from L2 through S1. The hardware is intact. No acute fracture or subluxation is seen. acute DVT/ Pulmonary Emboli Pt with hypoxia and tachycardia on 03/12, requiring 2-3L of oxygen CTA chest obtained which noted pulmonary emboli bilaterally throughout the lungs EKG noting sinus tachycardia Echo ordered to confirm no heart strain IV heparin ordered, started warfarin Continue to monitor on telemetry Overnight heparin held as Hgb 6.2 - this may have been incorrect value - pt reported they had difficulty getting blood work. received 1 unit of pRBC and Hgb stable, FOBT negative Restarted IV heparin and put on hold 03/18 AM prior to surgery IV heparin currently on hold - resume when ok w/ surgeon Acute blood loss anemia 2/2 surgery as above Hgb 7.8 on 03/14 Hgb 7.6 on 03/15 Hgb 7.6 on 03/16 Hgb 8.8 on 03/17 - after blood transfusion Hgb 8.0 on 03/18 Hgb 8.4 on 03/19 overnight Hgb checked and was down at 6.2 - however likely not correct value - per had difficulty obtaining blood work on her received 1 unit of pRBC -> Hgb 8.8 on 03/17 FOBT checked and negative, stool seen - light brown IV heparin was restarted and put on hold AM prior to procedure - 03/18 03/19 cont. to hold IV heparin , until ok to resume per surgeon Chronic Hyponatremia Na 130-132 Patient notes poor PO intake Hold HCTZ and monitor sodium levels Pre-Diabetes Steroid induced hyperglycemia -> resolved A1C 6.3 BSG elevated likely in setting of IV steroids, has downtrended since steroids dc'd on 03/09 Discontinued SSI, monitor BSG on AM BMP Hypertension Continue home amlodipine, spironolactone Hold HCTZ for low sodium Rheumatoid arthritis Hold leflunomide Thank you for this consultation. We will follow the patient with you during their hospital stay. You can reach a member of the [facility] Hospitalist Team 18/04 via [employer]. Admission and Anticipated Discharge Date Admission Date: February 25, 2025 Subjective Pt seen in follow up Hx of spinal surgery w/ complication/ abscess, required revision Pt s/p another I&D yesterday by Dr. Nova. Cultures pending This AM pt is lying in bed, she is awake, able to converse appropriately. Per RN pt slept well overnight. She reports back pain, difficulty moving legs. No chest pain or shortness of breath, no abd. pain, n/v. She would like diet advanced - which was done. WBC normalized, afebrile, Hgb stable. Earlier diagnosed w/ DVT/PE - IV heparin on hold, will discuss w/ surgery when ok to resume Review of Systems Review of Systems: All systems reviewed & are unremarkable except as noted in Subjective Physical Exam Physical Exam: General: obese F in NAD, awake, and able to converse appropriately and w/o difficulty HEENT: NC/AT CV: RRR Resp: Breath sounds clear anteriorly, no increased effort of breathing Abdomen: Soft, nontender, +obese Extremities: No edema in lower extremities bilaterally, moves LE extremities w/ difficulty Results & Data Results & Data Vital Signs (Past 12 Hours) Vital Signs Temp Pulse Pulse Resp BP Pulse Ox O2 Del Method 03/19/25 03:35 36.8 C 101 H 18 160/79 H 99 Nasal Cannula 03/18/25 23:19 36.7 C 103 H 20 152/91 H 96 Nasal Cannula 03/18/25 23:00 101 H 03/18/25 20:13 36.8 C 98 H 20 143/83 H 96 Nasal Cannula 03/18/25 19:39 101 H 03/18/25 19:35 Nasal Cannula O2 Flow Rate 03/19/25 03:35 2.0 03/18/25 23:19 2.0 03/18/25 23:00 03/18/25 20:13 2.0 03/18/25 19:39 03/18/25 19:35 2 Laboratory Results 03/19/25 03/18/25 Range/Units 05:41 10:47 WBC 9.47 (4.8-10.8) K/ul RBC 3.09 L (4.20-5.40) M/uL Hgb 8.4 L (12.0-16.0) g/dl Hct 25.2 L (37.0-47.0) % MCV 81.6 (80.0-100.0) fL MCH 27.2 (25.0-34.0) pg MCHC 33.3 (32.0-36.0) g/dL RDW Std Deviation 49.6 H (36.4-46.3) fL RDW Coeff of Neto 17.2 H (11.5-14.5) % Plt Count 306 (130-400) K/uL MPV 9.3 L (9.4-12.4) fL PT 15.2 H (9.0-12.0) Seconds INR 1.4 H (0.9-1.1) Heparin Anti-Xa, Unfract < 0.10 L (0.3-0.7) IU/ml Sodium 130 L (136-145) mmol/L Potassium 3.9 (3.5-5.1) mmol/L Chloride 97 L (98-107) mmol/L Carbon Dioxide 23 (21-32) mmol/L Anion Gap 10 (3-11) BUN 9 (6-23) mg/dl Creatinine 0.63 (0.6-1.2) mg/dl Est Cr Clr Drug Dosing 93.9 ml/min eGFR 96.57 BUN/Creatinine Ratio 14.3 (10-20) Glucose 71 (70-99(Fasting)) mg/dl POC Glucose 74 (70-99) mg/dl Calcium 8.2 L (8.6-10.3) mg/dl Phosphorus 3.2 (2.5-4.9) mg/dl Magnesium 1.7 (1.7-2.4) mg/dl Medications Administered Current Inpatient Medications Al Hydrox/Mg Hydrox/Simethicone (Aluminum/Magnesium Susp 30 Ml Udc) 30 ml PO Q6H PRN PRN Reason: Dyspepsia Stop: 03/27/25 14:53 Last Admin: 03/10/25 18:41 Dose: 30 ml Amlodipine Besylate (Amlodipine Besylate 5 Mg Tab) 5 mg PO BID PATRICK Stop: 03/27/25 20:59 Last Admin: 03/18/25 13:08 Dose: 5 mg Ascorbic Acid (Ascorbic Acid 500 Mg Tab) 500 mg PO DAILY PATRICK Stop: 03/28/25 08:59 Last Admin: 03/18/25 08:14 Dose: Not Given Bisacodyl (Bisacodyl 10 Mg Supp) 10 mg WA DAILY PRN PRN Reason: Constipation Stop: 03/27/25 14:53 Clotrimazole (Clotrimazole 1% Cr 15 Gm Tube) 1 appln EXT BID PATRICK Stop: 04/11/25 20:59 Last Admin: 03/18/25 21:51 Dose: 1 appln Dextrose (Dextrose 50% 50 Ml Syringe) 25 - 50 ml IV UD PRN; Protocol PRN Reason: Hypoglycemia Protocol Stop: 04/04/25 10:53 Famotidine (Famotidine 20 Mg Tab) 20 mg PO Q12H PRN PRN Reason: Dyspepsia Stop: 03/27/25 14:53 Last Admin: 03/14/25 08:20 Dose: 20 mg Glucagon (Glucagon For Inj 1 Mg Vial) 1 mg SQ UD PRN; Protocol PRN Reason: Hypoglycemia Protocol Stop: 04/04/25 10:53 Glucose (Glucose 40% Gel 15 Gm Tube) 15 - 30 gm PO UD PRN; Protocol PRN Reason: Hypoglycemia Protocol Stop: 04/04/25 10:53 Glucose (Glucose 10 Tab/Tube) 4 - 8 tab PO UD PRN; Protocol PRN Reason: Hypoglycemia Protocol Stop: 04/04/25 10:53 Hydromorphone HCl (Hydromorphone Hcl 2 Mg Tab) 1 mg PO Q4H PRN PRN Reason: Pain Stop: 03/30/25 15:44 Last Admin: 03/19/25 00:38 Dose: 1 mg Promethazine HCl (Phenergan) 12.5 mg in 50.5 mls @ 202 mls/hr IV Q6H PRN PRN Reason: Nausea And Vomiting Stop: 03/27/25 14:53 Vancomycin HCl 1,750 mg/ (Sodium Chloride) 535 mls @ 200 mls/hr IV Q24H [facility] Stop: 04/26/25 13:59 Last Infusion: 03/18/25 17:34 Dose: Infused Thiamine HCl 200 mg/ Sodium (Chloride) 52 mls @ 210 mls/hr IV QAM [facility] Stop: 04/16/25 15:44 Last Infusion: 03/18/25 10:34 Dose: Infused Folic Acid 1 mg/ Syringe 10 mls @ 5 mls/min IV QAM PATRICK Stop: 04/16/25 15:44 Last Admin: 03/18/25 08:17 Dose: 5 mls/min Acetaminophen (Ofirmev) 1,000 mg in 100 mls @ 400 mls/hr IV Q8 [facility] Stop: 03/21/25 00:00 Last Infusion: 03/19/25 06:22 Dose: Infused Ertapenem (Invanz 1000mg) 1,000 mg in 10 mls @ 2 mls/min IV Q24H [facility] Stop: 03/24/25 19:59 Last Admin: 03/18/25 19:47 Dose: 2 mls/min Lactated Ringer's (Lr) 1,000 mls @ 15 mls/hr IV .Q24H [facility] Stop: 03/21/25 13:44 Last Infusion: 03/18/25 14:47 Dose: Infused Influenza Virus Vaccine Quadrival (Do Not Administer Flu Vaccine) 1 each N/A PRN PRN PRN Reason: Notification Stop: 03/27/25 14:53 Lactobacillus Acidophilus (Advanced Probiotic 625 Mg Capsule) 1,250 mg PO DAILY [facility] Stop: 04/13/25 09:44 Last Admin: 03/18/25 08:14 Dose: Not Given Lidocaine (Lidocaine 5% 1 Patch) 1 patch TD QAM [facility] Stop: 04/02/25 09:59 Last Admin: 03/18/25 08:16 Dose: 1 patch Losartan Potassium (Losartan Potassium 25 Mg Tab) 25 mg PO QAM [facility] Stop: 04/16/25 04:49 Last Admin: 03/18/25 08:14 Dose: Not Given Magnesium Hydroxide (Magnesium Hydroxide Susp 30 Ml Udc) 30 ml PO Q24H PRN PRN Reason: Constipation Stop: 03/27/25 14:53 Last Admin: 03/08/25 21:05 Dose: 30 ml Magnesium Oxide (Magnesium Oxide 400 Mg Tab) 400 mg PO DAILY [facility] Stop: 03/28/25 08:59 Last Admin: 03/18/25 08:14 Dose: Not Given Melatonin (Melatonin 3 Mg Tab) 6 mg PO HS PRN PRN Reason: Sleep Stop: 04/15/25 15:48 Last Admin: 03/18/25 19:42 Dose: 6 mg Miscellaneous (Remove Lidoderm Patch) 1 each N/A DAILY@2100 [facility] Stop: 04/02/25 20:59 Last Admin: 03/18/25 21:00 Dose: 1 each Miscellaneous (Carbohydrates For Hypoglycemia ) 15 - 30 gm PO UD PRN PRN Reason: Hypoglycemia Protocol Stop: 04/04/25 10:53 Miscellaneous Information (Vancomycin Consult Active) 1 each N/A UD PRN PRN Reason: Consult Stop: 04/10/25 17:12 Multivitamins (Multivitamin Tab) 1 tab PO DAILY [facility] Stop: 03/28/25 08:59 Last Admin: 03/18/25 08:14 Dose: Not Given Naloxone HCl (Naloxone Hcl 0.4 Mg/1 Ml Vial/Carp) 0.1 mg IV Q5M PRN PRN Reason: Oversedation/Resp depression Stop: 03/27/25 14:53 Nystatin (Nystatin Susp 500,000 U/5 Ml Udc) 5 ml PO QID [facility] Stop: 03/19/25 13:29 Last Admin: 03/18/25 21:52 Dose: 5 ml Ondansetron HCl (Ondansetron Inj 2 Mg/Ml 2 Ml Vial) 4 mg IV Q6H PRN PRN Reason: Nausea &/or Vomiting Stop: 03/27/25 14:53 Ondansetron HCl (Ondansetron 4 Mg Od Tab) 4 mg PO Q6H PRN PRN Reason: Nausea Stop: 03/27/25 14:53 Last Admin: 02/26/25 18:26 Dose: 4 mg Pantoprazole Sodium (Pantoprazole 40 Mg Tab) 40 mg PO DAILYBL PATRICK Stop: 03/30/25 10:29 Last Admin: 03/18/25 08:15 Dose: Not Given Pneumococcal Polyvalent Vaccine (Do Not Administer Pneumococcal Vaccine) 1 each N/A PRN PRN PRN Reason: Notification Stop: 03/27/25 14:53 Polyethylene Glycol (Polyethylene (Miralax) 17 Gm Pack) 17 gm PO DAILY PATRICK Stop: 04/09/25 08:59 Last Admin: 03/18/25 08:14 Dose: Not Given Rifampin (Rifampin 300 Mg Capsule) 300 mg PO BID PATRICK Stop: 04/10/25 20:59 Last Admin: 03/18/25 21:48 Dose: 300 mg Senna/Docusate Sodium (Docusate Sodium/Senna 50/8.6mg Tab) 2 tab PO HS PATRICK Stop: 03/27/25 20:59 Last Admin: 03/18/25 21:52 Dose: Not Given Vitamin D (Cholecalciferol 25 Mcg (1000 Units) Tab) 25 mcg PO DAILY PATRICK Stop: 03/28/25 08:59 Last Admin: 03/18/25 08:14 Dose: Not Given
[2025-03-19] MEDS ORDERED: COUGH DROP (SUGAR FREE) LOZ 24 LOZ/1 BOX BUCCAL PRN (10:22)
--- NOTE | 2025-03-19 10:51 | Orthopedic Progress Note ---
Date of Service March 19, 2025 Assessment & Plan (1) Spinal epidural abscess: Plan: At this time we will continue to monitor drain output. Encourage patient to get out of bed to chair as tolerated. Ambulate as tolerated. Admission and Anticipated Discharge Date Admission Date: February 25, 2025 Subjective Patient complaining of soreness in her back. No changes in leg pain. Physical Exam Physical Exam: Exam patient seems much more clear in conversation. Neurologic status unchanged. Drains are functioning. Results & Data Vital Signs (Past 12 Hours) Vital Signs Temp Pulse Pulse Resp BP Pulse Ox O2 Del Method 03/19/25 07:36 36.7 C 81 18 169/79 H 97 Nasal Cannula 03/19/25 03:35 36.8 C 101 H 18 160/79 H 99 Nasal Cannula 03/18/25 23:19 36.7 C 103 H 20 152/91 H 96 Nasal Cannula 03/18/25 23:00 101 H O2 Flow Rate 03/19/25 07:36 3 03/19/25 03:35 2.0 03/18/25 23:19 2.0 03/18/25 23:00 Queries Orthopedic Spine Acute Posthemorrhagic Anemia: Yes Obesity: Yes 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
[2025-03-19] MEDS: HEPARIN 25000 UNIT/500 ML D5W 25,000 UNITS/500 ML BAG IV SCH (14:15)
[2025-03-19] MEDS: Heparin IV Adult Wt-Based Low-Dose *NO* INITIAL Bolus Protocol IV STA (14:15)
[2025-03-19 21:05] LABS: ANTI-Xa, UFH(UnfractionatedHep 0.25 IU/ml (0.3-0.7)
--- NOTE | 2025-03-19 22:32 | Communication Note ---
Date of Service: March 19, 2025 Patient with bloody diarrhea as per RN. No abdominal pain as per patient. AP Painless LGIB rule out C. difficile Ongoing IV heparin Rx for PE DVT Clear liquid diet Stool C. difficile Hold IV heparin H&H now
[2025-03-19 23:27] LABS: Hematocrit (blood only) 24.4 % (37.0-47.0); Hemoglobin 8.0 g/dl (12.0-16.0)
[2025-03-20 01:26] LABS: Cdiff Toxin B Gene (2yr or >) Negative Cdiff Gene (Neg)
[2025-03-20 04:43] LABS: Hematocrit (blood only) 24.8 % (37.0-47.0); Hemoglobin 8.2 g/dl (12.0-16.0); Mean Corpuscular Hemoglobin 26.6 pg (25.0-34.0); Mean Corpuscular Volume 80.5 fL (80.0-100.0); Platelet Count 330 K/uL (130-400); RDW Standard Deviation 48.0 fL (36.4-46.3); Red Blood Count 3.08 M/uL (4.20-5.40); White Blood Count 11.09 K/ul (4.8-10.8)
[2025-03-20 04:59] LABS: Anion Gap 6.0 (3-11); Blood Urea Nitrogen 8.0 mg/dl (6-23); Calcium 7.9 mg/dl (8.6-10.3); Carbon Dioxide 24.0 mmol/L (21-32); Chloride 99.0 mmol/L (98-107); Creatinine Clr Calc Pharmacy 109.6 ml/min; Glucose 91.0 mg/dl (70-99(Fasting)); Magnesium 1.5 mg/dl (1.7-2.4); Potassium 3.5 mmol/L (3.5-5.1); Sodium 129.0 mmol/L (136-145)
[2025-03-20 05:06] LABS: ANTI-Xa, UFH(UnfractionatedHep < 0.10 IU/ml (0.3-0.7)
[2025-03-20 05:09] LABS: INR 1.7 (0.9-1.1); Prothrombin Time 18.0 Seconds (9.0-12.0)
--- NOTE | 2025-03-20 10:34 | Orthopedic Progress Note ---
Date of Service March 20, 2025 Assessment & Plan (1) Spinal epidural abscess: Plan: At this time we will continue to encourage her to get out of bed to a chair with all of her meals. She will begin ambulating today hopefully. Admission and Anticipated Discharge Date Admission Date: February 25, 2025 Subjective Patient was able to get out of bed yesterday. She states her pain is controlled. Physical Exam Physical Exam: Patient's drains are functioning. Neurologically she is stable. Results & Data Vital Signs (Past 12 Hours) Vital Signs Temp Pulse Pulse Resp BP Pulse Ox O2 Del Method 03/20/25 09:44 Room Air 03/20/25 09:41 111 H 03/20/25 07:23 37.0 C 116 H 22 168/81 H 92 Room Air 03/20/25 03:46 36.8 C 95 H 20 168/84 H 97 Room Air 03/20/25 02:01 110 H Queries Orthopedic Spine Acute Posthemorrhagic Anemia: Yes Obesity: Yes 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
[2025-03-20 16:17] LABS: ANTI-Xa, UFH(UnfractionatedHep 0.13 IU/ml (0.3-0.7)
--- NOTE | 2025-03-20 16:50 | Hospitalist Progress Note ---
Date of Service March 20, 2025 Assessment & Plan (1) Acute blood loss anemia: (2) Other spondylosis with radiculopathy, lumbar region: (3) Tachycardia: (4) Leukocytosis: (5) Hyponatremia: (6) Hypertension: (7) Hyperlipidemia: (8) Rheumatoid arthritis: Plan This is a 69 year old female with PMH significant for hypertension, hyperlipidemia, rheumatoid arthritis, palpitations, history of bilateral pulmonary emboli, and lumbar spondylosis with radiculopathy who underwent L1-L5 decompression and fusion on 02/25/[address] Nova. We have been consulted for post operative medical management. Spondylosis with radiculopathy, lumbar region Post-op spinal epidural abscess s/p washout during revision surgery on 03/07 L1-L5 decompression and fusion by Dr. Nova on February 25 complicated by fluid collection, fall with end plate fractures -Post-op lumbar Spine MRI 03/04 due to ongoing BLE weakness and pain * 15x5.1x3.1 cm fluid collection R aspect of subcu fat extending from level L1 vertebra down to level opposite L5 vertebra -Patient fell due overnight and 03/05 CT lumbar spine revealed end plate fracture L4 and pedicle fx of L5 on the right, prompting revision surgery on 03/07 -S/p removal of posterior segmental instrumentation L2 L4-L5, revision decompression with bilateral foraminotomies L4-L5, kyphoplasty L2 L4 and L5 vertebral bodies, revision fusion L4-L5, L5-S1 -Epidural space and lumbar fascia OR cultures growing E coli, Morganella, corynebacterium, and staph epidermidis -ID consulted for further recs given duration of abx, likely to need for suppre ssive therapy given hardware -recommended Rocephin 2g q24hrs, Vancomycin for 6 weeks and po rifampin 300mg BID x 3 months Monitor CRP every other week and CBC, CMP , vancomycin level every week while being on IV antibiotics. After completion of IV antibiotic, she will need suppressive antibiotic given the hardware in which will be Bactrim, unfortunately no option for staph epidermidis given the sensitivities results. Dr. Nova recommending continued PT/OT and discharge to acute rehab. Continue incentive spirometry, encourage movement as able Pt s/p I&D w/ Dr. Nova on 03/18 once more- culture grew Enterococcus faecium and velia albicans -discussed with Dr. Sharp from [facility] on 03/20 who recommended: switching Vancomycin to Daptomycin to cover for possible VRE, re- starting Rocephin and adding Fluconazole to the regimen (d/c rifampin as well). More recommendations to follow. Acute DVT/ Pulmonary Emboli Pt with hypoxia and tachycardia on 03/12, requiring 2-3L of oxygen CTA chest obtained which noted pulmonary emboli bilaterally throughout the lungs EKG noting sinus tachycardia Echo ordered to confirm no heart strain IV heparin ordered, was started on warfarin before transitioning to IV heparin once more for the repeat procedure Continue to monitor on telemetry Overnight heparin held as Hgb 6.2 - this may have been incorrect value - pt reported they had difficulty getting blood work. received 1 unit of pRBC and Hgb stable, FOBT negative Restarted IV heparin and put on hold 03/18 AM prior to surgery Pt currently tachycardic once more on 03/20 with hypertension- could be pain related as she has been trying to get up to walk and stand. EKG ordered noting sinus tachycardia, IV lopressor 5mg given. Pain control prn. IV heparin resumed. Acute blood loss anemia 2/2 surgery as above overnight Hgb checked and was down at 6.2 - however likely not correct value - per had difficulty obtaining blood work on her received 1 unit of pRBC -> Hgb 8.8 on 03/17 FOBT checked and negative, stool seen - light brown IV heparin was restarted and put on hold AM prior to procedure - 03/18 03/19 cont. to hold IV heparin , until ok to resume per surgeon 03/20-IV heparin resumed Chronic Hyponatremia Na 130-132 Patient notes poor PO intake Hold HCTZ and monitor sodium levels Pre-Diabetes Steroid induced hyperglycemia -> resolved A1C 6.3 BSG elevated likely in setting of IV steroids, has downtrended since steroids dc'd on 03/09 Discontinued SSI, monitor BSG on AM BMP Hypertension Continue home amlodipine, spironolactone Hold HCTZ for low sodium Rheumatoid arthritis Hold leflunomide Thank you for this consultation. We will follow the patient with you during their hospital stay. You can reach a member of the [facility] Hospitalist Team 18/04 via [employer]. Admission and Anticipated Discharge Date Admission Date: February 25, 2025 Subjective Pt was seen in the AM, at bedside Was very tired, per not as confused today. Alert x2 More tachycardic than usual today. Review of Systems Review of Systems: All systems reviewed & are unremarkable except as noted in Subjective Physical Exam Physical Exam: General: Alert. No acute distress HEENT: NC/AT, NC in nares CV: RRR Resp:no increased effort of breathing Abdomen: Soft, tender Extremities: edema in lower extremities bilaterally. Results & Data Results & Data Vital Signs (Past 12 Hours) Vital Signs Temp Pulse Pulse Resp BP Pulse Ox O2 Del Method 03/20/25 09:44 Room Air 03/20/25 09:41 111 H 03/20/25 07:23 37.0 C 116 H 22 168/81 H 92 Room Air 03/20/25 03:46 36.8 C 95 H 20 168/84 H 97 Room Air 03/20/25 02:01 110 H
[2025-03-20] MEDS: HEPARIN SOD (PORCINE) 1000 UNIT/ML IV ONE (17:08)
[2025-03-20] MEDS: METOPROLOL TARTRATE 1 MG/ML VIAL IV STA (17:40)
[2025-03-20] MEDS: cefTRIAXone SODIUM 2,000 MG/50 ML BAG IV SCH (17:46)
[2025-03-20] MEDS: DAPTOmycin 700 MG in SYRINGE 0 ML IV SCH (17:47)
[2025-03-20] MEDS: FLUCONAZOLE 200 MG/100 ML BAG IV SCH ×2 (17:48→20:52)
[2025-03-20 23:24] LABS: ANTI-Xa, UFH(UnfractionatedHep 0.46 IU/ml (0.3-0.7)
[2025-03-21 05:57] LABS: Hematocrit (blood only) 23.6 % (37.0-47.0); Hemoglobin 7.8 g/dl (12.0-16.0); Immature Granulocytes # (auto) 0.10 K/uL (0.01-0.20); Immature Granulocytes % (auto) 1.0 %; Mean Corpuscular Hemoglobin 26.6 pg (25.0-34.0); Mean Corpuscular Volume 80.5 fL (80.0-100.0); Platelet Count 314 K/uL (130-400); RDW Standard Deviation 48.3 fL (36.4-46.3); Red Blood Count 2.93 M/uL (4.20-5.40); White Blood Count 9.84 K/ul (4.8-10.8)
[2025-03-21 06:13] LABS: Alanine Aminotransferase 18.0 U/L (7-52); Albumin Globulin Ratio 0.9 (0.9-2); Alkaline Phosphatase 297.0 U/L (34-104); Anion Gap 9.0 (3-11); Bilirubin,Total 0.3 mg/dl (0.2-1.0); Blood Urea Nitrogen 7.0 mg/dl (6-23); Calcium 7.6 mg/dl (8.6-10.3); Carbon Dioxide 23.0 mmol/L (21-32); Chloride 98.0 mmol/L (98-107); Creatinine Clr Calc Pharmacy 128.5 ml/min; Globulin 2.5 gm/dl (2.5-4.0); Glucose 85.0 mg/dl (70-99(Fasting)); Magnesium 1.4 mg/dl (1.7-2.4); Potassium 3.1 mmol/L (3.5-5.1); Sodium 130.0 mmol/L (136-145); Total Protein 4.8 gm/dl (6.0-8.3)
[2025-03-21 06:19] LABS: Polychromasia 1+
[2025-03-21 06:20] LABS: ANTI-Xa, UFH(UnfractionatedHep 0.29 IU/ml (0.3-0.7)
[2025-03-21] MEDS: POTASSIUM CHLORIDE CRTAB 20 MEQ TABCR PO STA (06:36)
[2025-03-21] MEDS: MAGNESIUM SULFATE / D5W 1 GM/100 ML BAG IV SCH (06:37)
[2025-03-21] MEDS ORDERED: POTASSIUM CHLORIDE CRTAB 20 MEQ TABCR PO STA (08:07)
--- NOTE | 2025-03-21 08:08 | Orthopedic Progress Note ---
Date of Service March 21, 2025 Assessment & Plan (1) Spinal epidural abscess: Plan: This time of encouraged the patient to continue to attempt standing and transfer to chair. She is getting incredibly weak with prolonged bedrest. Patient's understands. Continue to motivate her to attempt standing and transfers to the bedside chair. Admission and Anticipated Discharge Date Admission Date: February 25, 2025 Subjective Patient's still describing sensitivity lower extremities. She struggled yesterday with therapy and standing. She is comfortable at rest. Physical Exam Physical Exam: Patient is motor function lower extremities but continued bilateral foot drop. Drains are functioning appropriately. Results & Data Vital Signs (Past 12 Hours) Vital Signs Temp Pulse Pulse Resp BP Pulse Ox O2 Del Method 03/21/25 07:43 37.2 C 102 H 24 150/88 H 94 Nasal Cannula 03/21/25 03:12 36.8 C 104 H 22 160/79 H 96 Nasal Cannula 03/20/25 23:24 36.8 C 111 H 16 166/92 H 96 Nasal Cannula 03/20/25 22:00 105 H 03/20/25 21:00 Nasal Cannula O2 Flow Rate 03/21/25 07:43 2 03/21/25 03:12 2 03/20/25 23:24 2 03/20/25 22:00 03/20/25 21:00 2 Queries Orthopedic Spine Acute Posthemorrhagic Anemia: Yes Obesity: Yes 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
[2025-03-21] MEDS: FOLIC ACID 1 MG TAB PO SCH (08:36)
[2025-03-21] MEDS: POTASSIUM CHLORIDE CRTAB 20 MEQ TABCR PO ONE (08:42)
--- NOTE | 2025-03-21 11:41 | Nephrology Consultation ---
Date of Consultation March 21, 2025 Assessment & Plan (1) Chronic hyponatremia: present prior to admission and mild > past 5 days 129-130 consistently. 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 w/ cable installation technician on IP/post d-c foods that appeal and are high protein -daily bmp -w/ labs 1899 ordered serum osms, urine studies including repeat UA -maintain eukalemia (2) Electrolyte abnormality: hypokalemia, hypomagnesemia >> had 80 mEq po K and 2 gm IV mag today plus po mag ox 400 mg x 1 >needs K 4 and mag 2 > try to limit IV mag since it's mixed in D5W which lowers Na -repeat BMP 1899 d/t low K this am and recheck mag same time History of Present Illness Reason for Consultation: mild hyponatremia Requesting Physician: Dr Gibbons Attending Physician: Adriel Nova DO History of Present Illness 69 y/o F whom I'm asked for recs regarding mild hyponatremia was admitted 02/25 for L1-L5 decompression and fusion. throughout the admission, serum sodium has ranged 127-133; past 5 days 129-130. PMH includes RA on leflunomide and enbrel, HTN on 3 OP agents, DVT BLE on AC x 4 mos then stopped, chronic hyponatremia (sNa 133 preop in January; no results in [facility], no links to [facility] EHR). Postop course c/b postop spinal epidural abscess, fall with end plate fractures, challenging pain control. MRI 03/04 w/ 15x5x3 cm fliud collection R aspect SQ fat from level L1 to L5 vertebrae. 03/05 fall w/ CT L spine showing L4 endplate fracture and R L5 pedicle fracture s/p 03/07 revision surgery w/ abscess washout. epidural space and lumbar fascia OR cultures grew E coli & Morganella, Se to Ertapenem started 03/08. ID recommends rocephin 2 gm daily + vancomycin x 6 wks and rifampin 300 mg bid x 3 mos to be followed by lifelong suppressive bactrim. On 03/12 she developed BL PE and started on heparin IV stopped for I&D 03/18 then again 03/19 after she developed bloody diarrhea; heparin resumed 03/20 s/p 03/18 I&D >> culture grew E faecium and C albicans >> per inf dzs vanco changed to daptomycin, rocephin resumed, fluconazole added, rifampin stopped. Back to hyponatremia >> serum sodium 261 on 03/16; 03/17 urine osms 311, Thien 121. pt is extremely fatigued w/ ? mildly altered MS >> declines to participate in most of ros though speaks for her and she mostly affirms >> no sob, ongoing chronic BLE pain and hyperesthesias; no n/v, noabd pain, no chest pain; no f/c; no rash; ongoing loose BM > 3 so far today. Allergies Allergy/AdvReac Type Severity Reaction Status Date / Time ampicillin Allergy Severe Rash Verified 03/18/25 13:28 terbinafine Allergy Severe Diarrhea Verified 03/18/25 13:28 Home Medications Medication Instructions Recorded Confirmed Type amlodipine 5 mg tablet 5 mg PO BID 01/31/25 02/25/25 History ascorbic acid (vitamin C) 500 mg 500 mg PO DAILY 01/31/25 02/25/25 History tablet (Vitamin C) cholecalciferol (vitamin D3) 25 25 mcg PO DAILY 01/31/25 02/25/25 History mcg (1,000 unit) capsule (Vitamin D3) etanercept 50 mg/mL (1 mL) 50 mg subcut WK 01/31/25 02/25/25 History subcutaneous cartridge (Enbrel Mini) hydrochlorothiazide 25 mg tablet 25 mg PO QAM 01/31/25 02/25/25 History leflunomide 10 mg tablet 10 mg PO QAM 01/31/25 02/25/25 History magnesium 200 mg tablet 200 mg PO DAILY 01/31/25 02/25/25 History multivitamin 1 tab PO DAILY 01/31/25 02/25/25 History omega-3 fatty acids 1,000 mg PO DAILY 01/31/25 02/25/25 History potassium chloride 10 mEq 20 meq PO QAM 01/31/25 02/25/25 History tablet,extended release (Klor-Con) spironolactone 25 mg tablet 25 mg PO QAM 01/31/25 02/25/25 History zolpidem 10 mg tablet 10 mg PO HS PRN prn 01/31/25 02/25/25 History oxycodone 5 mg tablet 5 mg PO Q6H PRN pain #30 tabs 02/26/25 Rx tramadol 50 mg tablet 50 mg PO Q6H PRN pain, moderate 02/26/25 Rx #30 tabs aspirin 81 mg tablet 81 mg PO DAILY 02/28/25 02/28/25 History rifampin 300 mg capsule 300 mg PO BID #60 caps 03/15/25 Rx Patient History Medical History History of UTI Rheumatoid arthritis Follows with Dr Ho/RAMANA Sheffield History of DVT (deep vein thrombosis) (2019) BL LE, was on AC x4 months (then discontinued) No issues since Hypertension Surgical History History of colonoscopy History of neuroma removal- right foot History of wisdom tooth extraction History of bunionectomy of both great toes History of tonsillectomy History of cataract surgery R/L History of cardiac cath (~2019) no stents Social History Smoking Status: Never smoker Second Hand Exposure: No; Do You Dip or Chew Tobacco: No; Tobacco Cessation Education Requested by Patient: No Hx Alcohol Use: Yes Hx Substance Use: No Preferred Language: Zambian Communication Ability: Effective Diet Tech Required: No Beliefs That Will Affect Care: Catholic Current Living Situation: Spouse Other Information That Helps Us Care for You: No Feels Safe at Home: Yes Safety Concerns: Feels Safe At This Time Assistive Devices: Cane, Stair Lift, Walker, Wheelchair and Other Review of Systems 2 Review of Systems: All systems reviewed & are unremarkable except as noted in HPI & below Physical Exam 2 Constitutional: well developed, + obese, + altered mental status (possibly), + physical limitations (limited ROM limbs) and + frail appearing; no acute distress Eyes: EOM intact bilaterally ENMT: Ears: no external ear abnormality Nose: no external nose abnormality Mouth: + dry oral mucous membranes Neck: no nuchal rigidity Respiratory: normal respiratory effort Auscultation: + diminished lung sounds Cardiovascular: Rate/Rhythm: regular rhythm and + tachycardic (in 100s) E xtremities: no edema (including none peripheral) Gastrointestinal (Abdomen): Inspection/Auscultation: normal bowel sounds and + abdominal surgical drain present Percussion/Palpation: abdomen soft; abdomen nontender moves upper extremities readily; reluctant to move/have BLE manipulated Skin: no rashes, warm and dry Neurologic: herman, fluent speech, no tremor Results & Data Vital Signs (Past 12 Hours) Vital Signs Temp Pulse Resp BP Pulse Ox O2 Del Method O2 Flow Rate 03/21/25 11:04 36.7 C 106 H 19 128/77 98 Nasal Cannula 2 03/21/25 10:19 Nasal Cannula 2 03/21/25 07:43 37.2 C 102 H 24 150/88 H 94 Nasal Cannula 2 03/21/25 03:12 36.8 C 104 H 22 160/79 H 96 Nasal Cannula 2 03/20/25 23:24 36.8 C 111 H 16 166/92 H 96 Nasal Cannula 2 Laboratory Results 03/21/25 05:24 03/21/25 05:24
--- NOTE | 2025-03-21 13:37 | Hospitalist Progress Note ---
Date of Service March 21, 2025 Assessment & Plan (1) Acute blood loss anemia: (2) Other spondylosis with radiculopathy, lumbar region: (3) Tachycardia: (4) Leukocytosis: (5) Hyponatremia: (6) Hypertension: (7) Hyperlipidemia: (8) Rheumatoid arthritis: Plan This is a 69 year old female with PMH significant for hypertension, hyperlipidemia, rheumatoid arthritis, palpitations, history of bilateral pulmonary emboli, and lumbar spondylosis with radiculopathy who underwent L1-L5 decompression and fusion on 02/25/[address] Nova. We have been consulted for post operative medical management. Spondylosis with radiculopathy, lumbar region Post-op spinal epidural abscess s/p washout during revision surgery on 03/07 L1-L5 decompression and fusion by Dr. Nova on February 25 complicated by fluid collection, fall with end plate fractures -Post-op lumbar Spine MRI 03/04 due to ongoing BLE weakness and pain * 15x5.1x3.1 cm fluid collection R aspect of subcu fat extending from level L1 vertebra down to level opposite L5 vertebra -Patient fell due overnight and 03/05 CT lumbar spine revealed end plate fracture L4 and pedicle fx of L5 on the right, prompting revision surgery on 03/07 -S/p removal of posterior segmental instrumentation L2 L4-L5, revision decompression with bilateral foraminotomies L4-L5, kyphoplasty L2 L4 and L5 vertebral bodies, revision fusion L4-L5, L5-S1 -Epidural space and lumbar fascia OR cultures growing E coli, Morganella, corynebacterium, and staph epidermidis -ID consulted for further recs given duration of abx, likely to need for suppre ssive therapy given hardware -recommended Rocephin 2g q24hrs, Vancomycin for 6 weeks and po rifampin 300mg BID x 3 months Monitor CRP every other week and CBC, CMP , vancomycin level every week while being on IV antibiotics. After completion of IV antibiotic, she will need suppressive antibiotic given the hardware in which will be Bactrim, unfortunately no option for staph epidermidis given the sensitivities results. Dr. Nova recommending continued PT/OT and discharge to acute rehab. Continue incentive spirometry, encourage movement as able Pt s/p I&D w/ Dr. Nova on 03/18 once more- culture grew Enterococcus faecium and velia albicans -discussed with Dr. Sharp from [facility] on 03/20 who recommended: switching Vancomycin to Daptomycin to cover for possible VRE, re- starting Rocephin and adding Fluconazole to the regimen (d/c rifampin as well). More recommendations to follow. 03/21- case discussed with ID once more today given sensisitivities and BRENDAN levels. Per Dr. Sharp: "...Since the VRE has high BRENDAN >4 for daptomycin, I would recommend starting on oral linezolid 600 mg twice daily. Please continue on IV ceftriaxone and reduce the dose to 2 g once daily. Also, continue on oral fluconazole and increase the dose to 600 mg once daily. Anticipated end date for IV ceftriaxone will be April 28, 2025. For both linezolid and fluconazole, she will likely require to be on them for life if tolerated. Please make sure to send for weekly CBC and CMP for the next 8 weeks after discharge. I would recommend that the patient got the labs done at [facility] facility so that I can follow up on them closely..." PT/OT Acute DVT/ Pulmonary Emboli Sinus Tachycardia Pt with hypoxia and tachycardia on 03/12, requiring 2-3L of oxygen CTA chest obtained which noted pulmonary emboli bilaterally throughout the lungs EKG noting sinus tachycardia Echo ordered to confirm no heart strain IV heparin ordered, was started on warfarin before transitioning to IV heparin once more for the repeat procedure Continue to monitor on telemetry Overnight heparin held as Hgb 6.2 - this may have been incorrect value - pt reported they had difficulty getting blood work. received 1 unit of pRBC and Hgb stable, FOBT negative Restarted IV heparin and put on hold 03/18 AM prior to surgery Pt currently tachycardic once more on 03/20 with hypertension- could be pain related as she has been trying to get up to walk and stand. EKG ordered noting sinus tachycardia, IV lopressor 5mg given. Pain control prn. IV heparin resumed. Started on Toprol 25mg daily Acute blood loss anemia 2/2 surgery as above overnight Hgb checked and was down at 6.2 - however likely not correct value - per had difficulty obtaining blood work on her received 1 unit of pRBC -> Hgb 8.8 on 03/17 FOBT checked and negative, stool seen - light brown IV heparin was restarted and put on hold AM prior to procedure - 03/18 03/19 cont. to hold IV heparin , until ok to resume per surgeon 03/20-IV heparin resumed Chronic Hyponatremia Na 130-132 Patient notes poor PO intake Hold HCTZ and monitor sodium levels Nephrology consulted, appreciate recs Pre-Diabetes Steroid induced hyperglycemia -> resolved A1C 6.3 BSG elevated likely in setting of IV steroids, has downtrended since steroids dc'd on 03/09 Discontinued SSI, monitor BSG on AM BMP Hypertension Continue home amlodipine, spironolactone Hold HCTZ for low sodium Rheumatoid arthritis Hold leflunomide Thank you for this consultation. We will follow the patient with you during their hospital stay. You can reach a member of the [facility] Hospitalist Team 18/04 via [employer]. Admission and Anticipated Discharge Date Admission Date: February 25, 2025 Subjective Pt was seen in the AM with at bedside. More alert and awake. Asking questions about the rnicon and urinating, joking and teasing her Notes still tired and weak Review of Systems Review of Systems: All systems reviewed & are unremarkable except as noted in Subjective Physical Exam Physical Exam: General: Alert. No acute distress HEENT: NC/AT, NC in nares CV: RRR Resp:no increased effort of breathing Abdomen: Soft, tender Extremities: edema in lower extremities bilaterally. Results & Data Results & Data Vital Signs (Past 12 Hours) Vital Signs Temp Pulse Pulse Resp BP Pulse Ox O2 Del Method 03/21/25 12:47 100 H 03/21/25 11:04 36.7 C 106 H 19 128/77 98 Nasal Cannula 03/21/25 10:19 Nasal Cannula 03/21/25 07:43 37.2 C 102 H 24 150/88 H 94 Nasal Cannula 03/21/25 03:12 36.8 C 104 H 22 160/79 H 96 Nasal Cannula O2 Flow Rate 03/21/25 12:47 03/21/25 11:04 2 03/21/25 10:19 2 03/21/25 07:43 2 03/21/25 03:12 2
[2025-03-21 13:58] LABS: ANTI-Xa, UFH(UnfractionatedHep 0.22 IU/ml (0.3-0.7)
--- NOTE | 2025-03-21 15:16 | Communication Note ---
Date of Service: March 21, 2025 Ms. Kaur underwent lumbar spine decompression with posterior spinal fusion on 02/25/2025 which was complicated with acute blood loss anemia. Also, the patient fell down on the night of 03/[address]/MRI MRI lumbar spine were performed on 03/04 and 03/05 which demonstrated L4 endplate fracture and L5 pedicle fracture on the right as well as fluid collection at the surgical site. Therefore, she was taken for an I and D on 03/07 with intraoperative findings suggesting an epidural abscess. She further underwent removal of the posterior segmental instrumentation and revision of the fusion surgery. Intraoperative cultures sent during the OR grew E coli, Morganella, staph epidermidis and Corynebacterium. We were consulted at that time and we decided to treat with ceftriaxone, IV vancomycin along with oral rifampin for a total of 6 weeks. Unfortunately, her hospital course was complicated with pulmonary emboli and further drop in her hemoglobin with a repeat CT scan abdomen and pelvis on 03/16 showing a 3 by 3 x 11 cm subcutaneous fluid collection along the lumbar spine incision site and had to be taken again for another I and D on 03/18/2025 with intraoperative cultures growing VRE and Terrie albicans. Microbiology: 03/07: Intraoperative cultures from the epidural abscess grew E coli, Morganella, staph epidermidis and Corynebacterium 03/08: 2 sets of blood culture negative 03/16: 2 sets of blood culture negative 03/17: Intraoperative wound culture growing Terrie albicans and VRE Impression: 1. Deep surgical site infection - after posterior lumbar fusion surgery on 02/25/2025 2. Epidural abscess/infection associated with the spine fixation device 3. Status post I&D with revision fusion on 03/07 and another I and D on 03/17 Recommendation: Since the VRE has high BRENDAN >4 for daptomycin, I would recommend starting on oral linezolid 600 mg twice daily. Please continue on IV ceftriaxone and reduce the dose to 2 g once daily. Also, continue on oral fluconazole and increase the dose to 600 mg once daily. Anticipated end date for IV ceftriaxone will be April 28, 2025. For both linezolid and fluconazole, she will likely require to be on them for life if tolerated. Please make sure to send for weekly CBC and CMP for the next 8 weeks after discharge. I would recommend that the patient got the labs done at [facility] facility so that I can follow up on them closely.
--- NOTE | 2025-03-21 15:33 | Electrocardiogram Report ---
Test Reason : Blood Pressure : */* mmHG Vent. Rate : 111 BPM Atrial Rate : 111 BPM P-R Int : 132 ms QRS Dur : 88 ms QT Int : 344 ms P-R-T Axes : 58 -23 49 degrees QTcB Int : 467 ms Sinus tachycardia Low voltage QRS Borderline ECG When compared with ECG of 12-Mar-2025 11:12, No significant change was found Confirmed by Truman Mcwilliams ([id number]) on 03/21/2025 3:32:33 PM Referred By: Adriel Nova Confirmed By: Truman Mcwilliams
[2025-03-21] MEDS: FLUCONAZOLE 100 MG TAB PO SCH (16:38)
[2025-03-21] MEDS: METOPROLOL SUCC 25MG EXT REL TAB PO SCH (16:41)
[2025-03-21] MEDS ORDERED: FLUCONAZOLE 200 MG/100 ML BAG IV SCH (18:00)
[2025-03-21 18:52] LABS: Appearance Urine Turbid (Clear); Bacteria Urine Automated None Seen (None Seen); Cast Urine Automated >20 /lpf (0-2); Glucose Urine UA Negative (Negative); WBC Urine Automated >50 /hpf (0-5)
[2025-03-21 19:44] LABS: Anion Gap 7.0 (3-11); Blood Urea Nitrogen 8.0 mg/dl (6-23); Calcium 7.7 mg/dl (8.6-10.3); Carbon Dioxide 23.0 mmol/L (21-32); Chloride 98.0 mmol/L (98-107); Creatinine Clr Calc Pharmacy 94.9 ml/min; Glucose 108.0 mg/dl (70-99(Fasting)); Magnesium 1.8 mg/dl (1.7-2.4); Potassium 3.8 mmol/L (3.5-5.1); Sodium 128.0 mmol/L (136-145)
[2025-03-21 19:52] LABS: ANTI-Xa, UFH(UnfractionatedHep 0.29 IU/ml (0.3-0.7)
[2025-03-21] MEDS: LINEZOLID 600 MG TAB PO SCH (20:18)
[2025-03-22 02:21] LABS: Hematocrit (blood only) 24.0 % (37.0-47.0); Hemoglobin 7.7 g/dl (12.0-16.0); Immature Granulocytes # (auto) 0.12 K/uL (0.01-0.20); Immature Granulocytes % (auto) 1.3 %; Mean Corpuscular Hemoglobin 26.3 pg (25.0-34.0); Mean Corpuscular Volume 81.9 fL (80.0-100.0); Platelet Count 382 K/uL (130-400); RDW Standard Deviation 49.8 fL (36.4-46.3); Red Blood Count 2.93 M/uL (4.20-5.40); White Blood Count 9.47 K/ul (4.8-10.8)
[2025-03-22 02:37] LABS: Alanine Aminotransferase 16.0 U/L (7-52); Albumin Globulin Ratio 0.8 (0.9-2); Alkaline Phosphatase 272.0 U/L (34-104); Anion Gap 7.0 (3-11); Bilirubin,Total 0.4 mg/dl (0.2-1.0); Blood Urea Nitrogen 8.0 mg/dl (6-23); Calcium 8.0 mg/dl (8.6-10.3); Carbon Dioxide 24.0 mmol/L (21-32); Chloride 98.0 mmol/L (98-107); Creatinine Clr Calc Pharmacy 89.4 ml/min; Globulin 2.7 gm/dl (2.5-4.0); Glucose 93.0 mg/dl (70-99(Fasting)); Magnesium 1.8 mg/dl (1.7-2.4); Potassium 3.7 mmol/L (3.5-5.1); Sodium 129.0 mmol/L (136-145); Total Protein 4.9 gm/dl (6.0-8.3)
[2025-03-22 02:48] LABS: Polychromasia 1+
[2025-03-22 02:55] LABS: ANTI-Xa, UFH(UnfractionatedHep 0.40 IU/ml (0.3-0.7)
[2025-03-22] MEDS: THIAMINE HCL 100 MG TAB PO SCH (08:16)
[2025-03-22] MEDS: cefTRIAXone SODIUM 2,000 MG/50 ML BAG IV SCH (08:28)
--- NOTE | 2025-03-22 10:30 | Nephrology Progress Note ---
Date of Service March 22, 2025 Assessment & Plan (1) Chronic hyponatremia: Plan: present prior to admission and mild > past 6 days 129-130 consistently. likely multifactorial >> challenging pain control, lung disease w/ PE, challenges to maintain po all on top of pre-existing mild hyponatremia in pt on hctz in general w/ all of her clinical issues hyponatremia is lower clinical priority but will follow and help to optimize this and other chemistries on 03/21, [id number] Lisa 19, s.g. 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 on IP/post d-c foods that appeal and are high protein -daily bmp -maintain eukalemia >>>>ordered K 20 meq bid >>>by urine studies she is dehydrated >> will give 500 mL NS bolus and reeval bmp late this PM Care coordinated w/ Dr Gibbons via [employer]; we are in agreement (2) Electrolyte abnormality: Plan: hypokalemia, hypomagnesemia >> had 80 mEq po K and 2 gm IV mag today plus po mag ox 400 mg x 1 >needs K 4 and mag 2 > try to limit IV mag since it's mixed in D5W which lowers Na -repeat BMP 1900 d/t low K this am and recheck mag same time Admission and Anticipated Discharge Date Admission Date: February 25, 2025 Subjective feels dehydrated; c/o cramps R posterior thigh; no sob, no n/v; 4 bm charted yesterday Review of Systems 2 Review of Systems: All systems reviewed & are unremarkable except as noted in Subjective Physical Exam 2 Constitutional: well developed, + obese, + altered mental status (possibly), + physical limitations (limited ROM limbs) and + frail appearing; no acute distress Eyes: EOM intact bilaterally ENMT: Ears: no external ear abnormality Nose: no external nose abnormality Mouth: + dry oral mucous membranes Neck: no nuchal rigidity Respiratory: normal respiratory effort Auscultation: + diminished lung sounds Cardiovascular: Rate/Rhythm: regular rhythm and + tachycardic (in 90s) E xtremities: no edema (including none peripheral) Gastrointestinal (Abdomen): Inspection/Auscultation: normal bowel sounds and + abdominal surgical drain present Percussion/Palpation: abdomen soft; abdomen nontender Skin: no rashes, warm and dry Neurologic: marked intention tremors w/ BLUE; ? impaired vision Results & Data Vital Signs (Past 12 Hours) Vital Signs Temp Pulse Pulse Resp BP Pulse Ox O2 Del Method 03/22/25 10:09 99 H 03/22/25 08:00 37.2 C 106 H 18 161/84 H 99 Nasal Cannula 03/22/25 03:31 37.5 C 103 H 18 132/66 91 Nasal Cannula 03/21/25 22:57 36.5 C 92 H 20 133/78 90 Nasal Cannula 03/21/25 22:48 111 H O2 Flow Rate 03/22/25 10:09 03/22/25 08:00 2 03/22/25 03:31 2 03/21/25 22:57 2 03/21/25 22:48 Laboratory Results 03/22/25 01:51 03/22/25 01:51
--- NOTE | 2025-03-22 11:09 | Orthopedic Progress Note ---
Date of Service March 22, 2025 Assessment & Plan (1) Spinal epidural abscess: Plan: Again we will emphasize transfers to bedside chair as tolerated. She is highly unmotivated. I am considering consultation with psychology/psychiatry to see if there is any assistance they may offer in helping her in the state of depression she currently presents. Admission and Anticipated Discharge Date Admission Date: February 25, 2025 Subjective Patient denies any back pain. She is not conversive today. Physical Exam Physical Exam: On exam she is reluctantly moves her legs to commands. Not sensitive to touch today. Results & Data Vital Signs (Past 12 Hours) Vital Signs Temp Pulse Pulse Resp BP Pulse Ox O2 Del Method 03/22/25 10:10 Nasal Cannula 03/22/25 10:09 99 H 03/22/25 08:00 37.2 C 106 H 18 161/84 H 99 Nasal Cannula 03/22/25 03:31 37.5 C 103 H 18 132/66 91 Nasal Cannula O2 Flow Rate 03/22/25 10:10 1 03/22/25 10:09 03/22/25 08:00 2 03/22/25 03:31 2 Queries Orthopedic Spine Acute Posthemorrhagic Anemia: Yes Obesity: Yes 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
[2025-03-22] MEDS: SODIUM CHLORIDE 0.9% 500 ML IV ONE (13:38)
[2025-03-22] MEDS: POTASSIUM CHLORIDE CRTAB 20 MEQ TABCR PO SCH (13:41)
--- NOTE | 2025-03-22 13:48 | Hospitalist Progress Note ---
Date of Service March 22, 2025 Assessment & Plan (1) Acute blood loss anemia: (2) Other spondylosis with radiculopathy, lumbar region: (3) Tachycardia: (4) Leukocytosis: (5) Hyponatremia: (6) Hypertension: (7) Hyperlipidemia: (8) Rheumatoid arthritis: Plan This is a 69 year old female with PMH significant for hypertension, hyperlipidemia, rheumatoid arthritis, palpitations, history of bilateral pulmonary emboli, and lumbar spondylosis with radiculopathy who underwent L1-L5 decompression and fusion on 02/25/[address] Nova. We have been consulted for post operative medical management. Spondylosis with radiculopathy, lumbar region Post-op spinal epidural abscess s/p washout during revision surgery on 03/07 L1-L5 decompression and fusion by Dr. Nova on February 25 complicated by fluid collection, fall with end plate fractures -Post-op lumbar Spine MRI 03/04 due to ongoing BLE weakness and pain * 15x5.1x3.1 cm fluid collection R aspect of subcu fat extending from level L1 vertebra down to level opposite L5 vertebra -Patient fell due overnight and 03/05 CT lumbar spine revealed end plate fracture L4 and pedicle fx of L5 on the right, prompting revision surgery on 03/07 -S/p removal of posterior segmental instrumentation L2 L4-L5, revision decompression with bilateral foraminotomies L4-L5, kyphoplasty L2 L4 and L5 vertebral bodies, revision fusion L4-L5, L5-S1 -Epidural space and lumbar fascia OR cultures growing E coli, Morganella, corynebacterium, and staph epidermidis -ID consulted for further recs given duration of abx, likely to need for suppre ssive therapy given hardware -recommended Rocephin 2g q24hrs, Vancomycin for 6 weeks and po rifampin 300mg BID x 3 months Monitor CRP every other week and CBC, CMP , vancomycin level every week while being on IV antibiotics. After completion of IV antibiotic, she will need suppressive antibiotic given the hardware in which will be Bactrim, unfortunately no option for staph epidermidis given the sensitivities results. Dr. Nova recommending continued PT/OT and discharge to acute rehab. Continue incentive spirometry, encourage movement as able Pt s/p I&D w/ Dr. Nova on 03/18 once more- culture grew Enterococcus faecium and velia albicans -discussed with Dr. Sharp from [facility] on 03/20 who recommended: switching Vancomycin to Daptomycin to cover for possible VRE, re- starting Rocephin and adding Fluconazole to the regimen (d/c rifampin as well). More recommendations to follow. 03/21- case discussed with ID once more today given sensisitivities and BRENDAN levels. Per Dr. Sharp: "...Since the VRE has high BRENDAN >4 for daptomycin, I would recommend starting on oral linezolid 600 mg twice daily. Please continue on IV ceftriaxone and reduce the dose to 2 g once daily. Also, continue on oral fluconazole and increase the dose to 600 mg once daily. Anticipated end date for IV ceftriaxone will be April 28, 2025. For both linezolid and fluconazole, she will likely require to be on them for life if tolerated. Please make sure to send for weekly CBC and CMP for the next 8 weeks after discharge. I would recommend that the patient got the labs done at [facility] facility so that I can follow up on them closely..." PT/OT 03/22- PICC line placement attempt unsuccessful. Acute DVT/ Pulmonary Emboli Sinus Tachycardia Pt with hypoxia and tachycardia on 03/12, requiring 2-3L of oxygen CTA chest obtained which noted pulmonary emboli bilaterally throughout the lungs EKG noting sinus tachycardia Echo ordered to confirm no heart strain IV heparin ordered, was started on warfarin before transitioning to IV heparin once more for the repeat procedure Continue to monitor on telemetry Overnight heparin held as Hgb 6.2 - this may have been incorrect value - pt reported they had difficulty getting blood work. received 1 unit of pRBC and Hgb stable, FOBT negative Restarted IV heparin and put on hold 03/18 AM prior to surgery Pt currently tachycardic once more on 03/20 with hypertension- could be pain related as she has been trying to get up to walk and stand. EKG ordered noting sinus tachycardia, IV lopressor 5mg given. Pain control prn. IV heparin resumed. Started on Toprol 25mg daily Acute blood loss anemia 2/2 surgery as above overnight Hgb checked and was down at 6.2 - however likely not correct value - per had difficulty obtaining blood work on her received 1 unit of pRBC -> Hgb 8.8 on 03/17 FOBT checked and negative, stool seen - light brown IV heparin was restarted and put on hold AM prior to procedure - 03/18 03/19 cont. to hold IV heparin , until ok to resume per surgeon 03/20-IV heparin resumed Chronic Hyponatremia Na 130-132 Patient notes poor PO intake Hold HCTZ and monitor sodium levels Nephrology consulted, appreciate recs Pre-Diabetes Steroid induced hyperglycemia -> resolved A1C 6.3 BSG elevated likely in setting of IV steroids, has downtrended since steroids dc'd on 03/09 Discontinued SSI, monitor BSG on AM BMP Hypertension Continue home amlodipine, spironolactone Hold HCTZ for low sodium Rheumatoid arthritis Hold leflunomide Thank you for this consultation. We will follow the patient with you during their hospital stay. You can reach a member of the [facility] Hospitalist Team 18/04 via [employer]. Admission and Anticipated Discharge Date Admission Date: February 25, 2025 Subjective Pt was seen in the PM with at bedside Worked with PT but could not move much PICC line placement attempt unsuccessful Pt more sleepy today Review of Systems Review of Systems: All systems reviewed & are unremarkable except as noted in Subjective Physical Exam Physical Exam: General: No acute distress HEENT: NC/AT, NC in nares CV: RRR Resp:no increased effort of breathing Abdomen: Soft, tender Extremities: edema in lower extremities bilaterally. Results & Data Results & Data Vital Signs (Past 12 Hours) Vital Signs Temp Pulse Pulse Resp BP Pulse Ox O2 Del Method 03/22/25 10:10 Nasal Cannula 03/22/25 10:09 99 H 03/22/25 08:00 37.2 C 106 H 18 161/84 H 99 Nasal Cannula 03/22/25 03:31 37.5 C 103 H 18 132/66 91 Nasal Cannula O2 Flow Rate 03/22/25 10:10 1 03/22/25 10:09 03/22/25 08:00 2 03/22/25 03:31 2
[2025-03-22 16:22] LABS: Anion Gap 7.0 (3-11); Blood Urea Nitrogen 9.0 mg/dl (6-23); Calcium 8.0 mg/dl (8.6-10.3); Carbon Dioxide 25.0 mmol/L (21-32); Chloride 97.0 mmol/L (98-107); Creatinine Clr Calc Pharmacy 85.5 ml/min; Glucose 119.0 mg/dl (70-99(Fasting)); Potassium 4.2 mmol/L (3.5-5.1); Sodium 129.0 mmol/L (136-145)
[2025-03-22] MEDS: ACETAMINOPHEN 1,000 MG/100 ML VIAL IV SCH (17:40)
[2025-03-22] MEDS: METOPROLOL SUCC 25MG EXT REL TAB PO SCH (19:55)
[2025-03-23 05:50] LABS: Hematocrit (blood only) 22.4 % (37.0-47.0); Hemoglobin 7.2 g/dl (12.0-16.0); Immature Granulocytes # (auto) 0.12 K/uL (0.01-0.20); Immature Granulocytes % (auto) 1.4 %; Mean Corpuscular Hemoglobin 25.9 pg (25.0-34.0); Mean Corpuscular Volume 80.6 fL (80.0-100.0); Platelet Count 434 K/uL (130-400); RDW Standard Deviation 48.2 fL (36.4-46.3); Red Blood Count 2.78 M/uL (4.20-5.40); White Blood Count 8.34 K/ul (4.8-10.8)
[2025-03-23 06:08] LABS: Alanine Aminotransferase 12.0 U/L (7-52); Albumin Globulin Ratio 0.9 (0.9-2); Alkaline Phosphatase 256.0 U/L (34-104); Anion Gap 9.0 (3-11); Bilirubin,Total 0.3 mg/dl (0.2-1.0); Blood Urea Nitrogen 11.0 mg/dl (6-23); Calcium 8.0 mg/dl (8.6-10.3); Carbon Dioxide 23.0 mmol/L (21-32); Chloride 97.0 mmol/L (98-107); Creatinine Clr Calc Pharmacy 96.7 ml/min; Globulin 2.7 gm/dl (2.5-4.0); Glucose 92.0 mg/dl (70-99(Fasting)); Magnesium 1.6 mg/dl (1.7-2.4); Potassium 4.0 mmol/L (3.5-5.1); Sodium 129.0 mmol/L (136-145); Total Protein 5.0 gm/dl (6.0-8.3)
[2025-03-23 06:16] LABS: INR 1.2 (0.9-1.1); Prothrombin Time 12.5 Seconds (9.0-12.0)
[2025-03-23 06:21] LABS: Polychromasia 1+
[2025-03-23 06:35] LABS: ANTI-Xa, UFH(UnfractionatedHep 0.37 IU/ml (0.3-0.7)
--- NOTE | 2025-03-23 07:09 | Nephrology Progress Note ---
Date of Service March 23, 2025 Assessment & Plan (1) Hypoxia: Plan: CXR 1 view ordered for today >> it's clear (2) Chronic hyponatremia: Plan: present prior to admission and mild > past 11 days 129-130 consistently. likely multifactorial >> challenging pain control, lung disease w/ PE, challenges to maintain po all on top of pre-existing mild hyponatremia in pt on hctz in general w/ all of her clinical issues hyponatremia is lower clinical priority but will follow and help to optimize this and other chemistries on 03/21, [id number] Lisa 19, s.g. on UA 1029, sOsm 261 -do not resume hctz at d/c; avoid TZ generally -continue nsaid avoidance -no indication for fluid limit at this time >>>control pain and nausea -encourage protein intake > target 90 gm daily intake; may need to work w/ veterinary medicine teacher on IP/post d-c foods that appeal and are high protein -daily bmp -maintain eukalemia >>>>ordered K 20 meq bid >>>by urine studies she is dehydrated >> but 500 mL NS bolus made sNa drop so will not repeat Care coordinated w/ Dr Gibbons via T[employer] re medication changes, volume status; we are in agreement (3) Electrolyte abnormality: Plan: hypokalemia, hypomagnesemia >> had 80 mEq po K and 2 gm IV mag today plus po mag ox 400 mg x 1 >needs K 4 and mag 2 > try to limit IV mag since it's mixed in D5W which lowers Na >>Mag 1.6 today >> changed mag ox to slow mag (absorbed better) bid 2 tabs Admission and Anticipated Discharge Date Admission Date: February 25, 2025 Subjective Abrupt increase in oxygen requirement despite aggressive diuresis; went from 1- 2L02 to pretty much 4 L exclusively since late yesterday afternoon though this is apparently not uncommon for her; on RA this PM w/ c/o leg discomfort/wanting repsoitioning; no n/v Review of Systems 2 Review of Systems: All systems reviewed & are unremarkable except as noted in Subjective Physical Exam 2 Constitutional: well developed, + obese, + altered mental status (some tangential thoughts/comments), + physical limitations (limited ROM limbs) and + frail appearing; no acute distress Eyes: EOM intact bilaterally ENMT: Ears: no external ear abnormality Nose: no external nose abnormality Mouth: + dry oral mucous membranes Neck: no nuchal rigidity Respiratory: normal respiratory effort Auscultation: + diminished lung sounds Cardiovascular: Rate/Rhythm: regular rhythm and + tachycardic (in 90s) E xtremities: no edema (including none peripheral) Gastrointestinal (Abdomen): Inspection/Auscultation: normal bowel sounds and + abdominal surgical drain present Percussion/Palpation: abdomen soft; abdomen nontender Skin: no rashes, warm and dry Results & Data Vital Signs (Past 12 Hours) Vital Signs Temp Pulse Pulse Resp BP Pulse Ox O2 Del Method 03/23/25 03:20 37.2 C 97 H 20 136/83 92 Nasal Cannula 03/22/25 23:14 36.7 C 96 H 16 132/73 95 Nasal Cannula 03/22/25 22:47 84 03/22/25 21:05 Nasal Cannula 03/22/25 19:15 37.1 C 103 H 22 113/66 90 Nasal Cannula O2 Flow Rate 03/23/25 03:20 4 03/22/25 23:14 4 03/22/25 22:47 03/22/25 21:05 2 03/22/25 19:15 4 Laboratory Results 03/23/25 05:30 03/23/25 05:30
[2025-03-23] MEDS: HYDROCORTISONE HC 2.5% CRM 30GM TUBE EXT PRN (08:21)
--- NOTE | 2025-03-23 08:26 | XRay Report ---
EXAM: XR chest 1V portable CLINICAL HISTORY: Higher O2 needs. TECHNIQUE: X-ray image of the chest obtained in frontal projection. COMPARISON: 03/12/2025. FINDINGS: Pulmonary Parenchyma: Lungs are clear bilaterally. No evidence of consolidation, collapse, or focal opacities. No pulmonary nodules identified. No evidence of pleural effusion or pleural thickening. Heart and Mediastinum: Heart size and shape are normal. No mediastinal widening or masses. No hilar or mediastinal lymphadenopathy. Bony Thorax: Bony thorax appears intact without fractures or deformities. Soft Tissues: Soft tissues overlying the chest wall are unremarkable. IMPRESSION: No acute cardiopulmonary abnormalities identified in comparison to findings of pulmonary embolism in prior CT. Electronically signed by Neftali Lundberg 03-23-2025 08:26 AM
--- NOTE | 2025-03-23 10:05 | Orthopedic Progress Note ---
Date of Service March 23, 2025 Assessment & Plan (1) Spinal epidural abscess: Plan: At this time we will continue to encourage standing with assistance. Transfer to chair when able. Admission and Anticipated Discharge Date Admission Date: February 25, 2025 Subjective Patient's pain is controlled. Denies any leg pain. Physical Exam Physical Exam: On exam she is sitting up at the bedside with assistance. The dressing was changed today. There is no erythema noted. The buck dressing is working appropriately. The drains are in place and functioning. She did stand with significant assistance by myself and the therapist. Results & Data Vital Signs (Past 12 Hours) Vital Signs Temp Pulse Pulse Resp BP Pulse Ox O2 Del Method 03/23/25 07:47 37.0 C 107 H 18 129/78 99 Room Air 03/23/25 03:20 37.2 C 97 H 20 136/83 92 Nasal Cannula 03/22/25 23:14 36.7 C 96 H 16 132/73 95 Nasal Cannula 03/22/25 22:47 84 O2 Flow Rate 03/23/25 07:47 03/23/25 03:20 4 03/22/25 23:14 4 03/22/25 22:47 Queries Orthopedic Spine Acute Posthemorrhagic Anemia: Yes Obesity: Yes 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
[2025-03-23] MEDS: MAGNESIUM CHLORIDE W/CALCIUM 64MG DELAYED REL TAB PO SCH (10:34)
--- NOTE | 2025-03-23 14:20 | Hospitalist Progress Note ---
Date of Service March 23, 2025 Assessment & Plan (1) Acute blood loss anemia: (2) Other spondylosis with radiculopathy, lumbar region: (3) Tachycardia: (4) Leukocytosis: (5) Hyponatremia: (6) Hypertension: (7) Hyperlipidemia: (8) Rheumatoid arthritis: Plan This is a 69 year old female with PMH significant for hypertension, hyperlipidemia, rheumatoid arthritis, palpitations, history of bilateral pulmonary emboli, and lumbar spondylosis with radiculopathy who underwent L1-L5 decompression and fusion on 02/25/[address] Nova. We have been consulted for post operative medical management. Spondylosis with radiculopathy, lumbar region Post-op spinal epidural abscess s/p washout during revision surgery on 03/07 L1-L5 decompression and fusion by Dr. Nova on February 25 complicated by fluid collection, fall with end plate fractures -Post-op lumbar Spine MRI 03/04 due to ongoing BLE weakness and pain * 15x5.1x3.1 cm fluid collection R aspect of subcu fat extending from level L1 vertebra down to level opposite L5 vertebra -Patient fell due overnight and 03/05 CT lumbar spine revealed end plate fracture L4 and pedicle fx of L5 on the right, prompting revision surgery on 03/07 -S/p removal of posterior segmental instrumentation L2 L4-L5, revision decompression with bilateral foraminotomies L4-L5, kyphoplasty L2 L4 and L5 vertebral bodies, revision fusion L4-L5, L5-S1 -Epidural space and lumbar fascia OR cultures growing E coli, Morganella, corynebacterium, and staph epidermidis -ID consulted for further recs given duration of abx, likely to need for suppre ssive therapy given hardware -recommended Rocephin 2g q24hrs, Vancomycin for 6 weeks and po rifampin 300mg BID x 3 months Monitor CRP every other week and CBC, CMP , vancomycin level every week while being on IV antibiotics. After completion of IV antibiotic, she will need suppressive antibiotic given the hardware in which will be Bactrim, unfortunately no option for staph epidermidis given the sensitivities results. Dr. Nova recommending continued PT/OT and discharge to acute rehab. Continue incentive spirometry, encourage movement as able Pt s/p I&D w/ Dr. Nova on 03/18 once more- culture grew Enterococcus faecium and velia albicans -discussed with Dr. Sharp from [facility] on 03/20 who recommended: switching Vancomycin to Daptomycin to cover for possible VRE, re- starting Rocephin and adding Fluconazole to the regimen (d/c rifampin as well). More recommendations to follow. 03/21- case discussed with ID once more today given sensisitivities and BRENDAN levels. Per Dr. Sharp: "...Since the VRE has high BRENDAN >4 for daptomycin, I would recommend starting on oral linezolid 600 mg twice daily. Please continue on IV ceftriaxone and reduce the dose to 2 g once daily. Also, continue on oral fluconazole and increase the dose to 600 mg once daily. Anticipated end date for IV ceftriaxone will be April 28, 2025. For both linezolid and fluconazole, she will likely require to be on them for life if tolerated. Please make sure to send for weekly CBC and CMP for the next 8 weeks after discharge. I would recommend that the patient got the labs done at [facility] so that I can follow up on them closely..." PT/OT 03/22- PICC line placement attempt unsuccessful. 03/23- working on ambulation. continue with abx, awaiting PICC placement Acute DVT/ Pulmonary Emboli Sinus Tachycardia Pt with hypoxia and tachycardia on 03/12, requiring 2-3L of oxygen CTA chest obtained which noted pulmonary emboli bilaterally throughout the lungs EKG noting sinus tachycardia Echo ordered to confirm no heart strain IV heparin ordered, was started on warfarin before transitioning to IV heparin once more for the repeat procedure Continue to monitor on telemetry Overnight heparin held as Hgb 6.2 - this may have been incorrect value - pt reported they had difficulty getting blood work. received 1 unit of pRBC and Hgb stable, FOBT negative Restarted IV heparin and put on hold 03/18 AM prior to surgery Pt currently tachycardic once more on 03/20 with hypertension- could be pain related as she has been trying to get up to walk and stand. EKG ordered noting sinus tachycardia, IV lopressor 5mg given. Pain control prn. IV heparin resumed. Started on Toprol 25mg BID 03/23- hgb 7.2 today, will repeat. No po anticoagulation transition yet Acute blood loss anemia 2/2 surgery as above overnight Hgb checked and was down at 6.2 - however likely not correct value - per had difficulty obtaining blood work on her received 1 unit of pRBC -> Hgb 8.8 on 03/17 FOBT checked and negative, stool seen - light brown IV heparin was restarted and put on hold AM prior to procedure - 03/18 03/19 cont. to hold IV heparin , until ok to resume per surgeon 03/20-IV heparin resumed 03/23- hgb 7.2 today, will repeat. No po anticoagulation transition yet Chronic Hyponatremia Na 130-132 Patient notes poor PO intake Hold HCTZ and monitor sodium levels Nephrology consulted, appreciate recs Pre-Diabetes Steroid induced hyperglycemia -> resolved A1C 6.3 BSG elevated likely in setting of IV steroids, has downtrended since steroids dc'd on 03/09 Discontinued SSI, monitor BSG on AM BMP Hypertension Continue home amlodipine, spironolactone Hold HCTZ for low sodium Rheumatoid arthritis Hold leflunomide Thank you for this consultation. We will follow the patient with you during their hospital stay. You can [facility] via [employer]. Admission and Anticipated Discharge Date Admission Date: February 25, 2025 Subjective Pt was seen with her at bedside More awake today and talking Did stand up for a short time today Review of Systems Review of Systems: All systems reviewed & are unremarkable except as noted in Subjective Physical Exam 2 Physical Exam: General: No acute distress HEENT: NC/AT CV: RRR Resp:no increased effort of breathing Abdomen: Soft, nontender Extremities: edema in lower extremities bilaterally and very tender to palpation. Results & Data Results & Data Vital Signs (Past 12 Hours) Vital Signs Temp Pulse Pulse Resp BP Pulse Ox O2 Del Method 03/23/25 14:06 83 03/23/25 12:00 104 H 03/23/25 11:40 36.9 C 92 H 18 118/65 96 Room Air 03/23/25 09:00 Nasal Cannula 03/23/25 07:47 37.0 C 107 H 18 129/78 99 Room Air 03/23/25 03:20 37.2 C 97 H 20 136/83 92 Nasal Cannula O2 Flow Rate 03/23/25 14:06 03/23/25 12:00 03/23/25 11:40 03/23/25 09:00 2 03/23/25 07:47 03/23/25 03:20 4
[2025-03-23 16:36] LABS: Hematocrit (blood only) 22.7 % (37.0-47.0); Hemoglobin 7.7 g/dl (12.0-16.0)
[2025-03-24 06:26] LABS: Hematocrit (blood only) 22.7 % (37.0-47.0); Hemoglobin 7.3 g/dl (12.0-16.0); Immature Granulocytes # (auto) 0.10 K/uL (0.01-0.20); Immature Granulocytes % (auto) 1.2 %; Mean Corpuscular Hemoglobin 25.6 pg (25.0-34.0); Mean Corpuscular Volume 79.6 fL (80.0-100.0); Platelet Count 518 K/uL (130-400); RDW Standard Deviation 47.6 fL (36.4-46.3); Red Blood Count 2.85 M/uL (4.20-5.40); White Blood Count 8.01 K/ul (4.8-10.8)
[2025-03-24 06:45] LABS: Alanine Aminotransferase 12.0 U/L (7-52); Albumin Globulin Ratio 0.8 (0.9-2); Alkaline Phosphatase 257.0 U/L (34-104); Anion Gap 9.0 (3-11); Bilirubin,Total 0.3 mg/dl (0.2-1.0); Blood Urea Nitrogen 7.0 mg/dl (6-23); Calcium 7.8 mg/dl (8.6-10.3); Carbon Dioxide 25.0 mmol/L (21-32); Chloride 93.0 mmol/L (98-107); Creatinine Clr Calc Pharmacy 114.4 ml/min; Globulin 2.8 gm/dl (2.5-4.0); Glucose 82.0 mg/dl (70-99(Fasting)); Magnesium 1.4 mg/dl (1.7-2.4); Potassium 3.6 mmol/L (3.5-5.1); Sodium 127.0 mmol/L (136-145); Total Protein 5.1 gm/dl (6.0-8.3)
[2025-03-24 06:48] LABS: ANTI-Xa, UFH(UnfractionatedHep 0.26 IU/ml (0.3-0.7)
[2025-03-24 07:13] LABS: Polychromasia 1+
--- NOTE | 2025-03-24 08:08 | Nephrology Progress Note ---
Date of Service March 24, 2025 Assessment & Plan (1) Chronic hyponatremia: Plan: present prior to admission and mild > past 11 days 129-130 consistently. likely multifactorial >> challenging pain control, lung disease w/ PE, challenges to maintain po all on top of pre-existing mild hyponatremia in pt on hctz in general w/ all of her clinical issues hyponatremia is lower clinical priority but will follow and help to optimize this and other chemistries on 03/21, [id number] Lisa 19, s.g. on UA 1029, sOsm 261 -do not resume hctz at d/c; avoid TZ generally -continue nsaid avoidance -no indication for fluid limit at this time >>>control pain and nausea -encourage protein intake > target 90 gm daily intake; may need to work w/ whitesmith on IP/post d-c foods that appeal and are high protein -daily bmp ->>>>>>>>>>maintain eukalemia >>>>continue K 20 meq bid; also gave her IV K x 60 mEq (will be 300 mL water w/ this) >by urine studies 03/21 she is dehydrated >> but 500 mL NS bolus made sNa drop so will not repeat >>>>>>given drop in Na have ordered repeat sodium studies > urine and blood -urine even more dehydrated 03/24 than 03/21 w/ yeast present; also wtih uOsm 471, Lisa 12, uCl <15; serum osm 260 >>>by chemistries this is hypotonic hypovolemic hyponatremia. With magnesium and potassium repletion today, she is receiving 600 mL of fluid. Repeat basic metabolic panel at 1800 ordered to f/u on sNa Care coordinated w/ Dr Gibbons via [employer] re lyte repletion, volume status; we are in agreement (2) Electrolyte abnormality: Plan: hypokalemia, hypomagnesemia >> had 80 mEq po K and 2 gm IV mag today plus po mag ox 400 mg x 1 >needs K 4 and mag 2 > >>>>try to limit IV mag since it's mixed in D5W which lowers Na >> that said today she needs 3 bags IV mag (so ordered) >>>>>gave K 60 mEq >>unable to tolerate po so had to give IV today >Mag 1.4 today >> cont slow mag (absorbed better) bid 2 tabs; Admission and Anticipated Discharge Date Admission Date: February 25, 2025 Subjective low grade temp this am to 38.1; got PICC this morning for long-term antibiotics; had MRI as well because of significant confusion and vertigo with position changes. Patient tells me she is very tired and having some back and leg pain. RN tells me her surgical site is still oozing significantly. Review of Systems 2 Review of Systems: All systems reviewed & are unremarkable except as noted in Subjective Physical Exam 2 Constitutional: well developed, + obese, + altered mental status (Question due to fatigue?), + physical limitations (limited ROM limbs) and + frail appearing; no acute distress Eyes: EOM intact bilaterally ENMT: Ears: no external ear abnormality Nose: no external nose abnormality Mouth: + dry oral mucous membranes Neck: no nuchal rigidity Respiratory: normal respiratory effort Auscultation: + diminished lung sounds Cardiovascular: Rate/Rhythm: regular rhythm and + tachycardic (in 100s) E xtremities: no edema (including none peripheral) Gastrointestinal (Abdomen): Inspection/Auscultation: normal bowel sounds and + abdominal surgical drain present Percussion/Palpation: abdomen soft; abdomen nontender Skin: no rashes, warm and dry Results & Data Vital Signs (Past 12 Hours) Vital Signs Temp Pulse Pulse Resp BP BP Pulse Ox 03/24/25 07:58 38.1 C H 104 H 20 116/65 90 03/24/25 07:16 107 H 03/24/25 03:05 37.3 C 106 H 16 154/82 H 95 03/23/25 23:10 37.3 C 93 H 18 147/83 H 96 03/23/25 21:26 O2 Del Method O2 Flow Rate 03/24/25 07:58 Room Air 03/24/25 07:16 03/24/25 03:05 Room Air 03/23/25 23:10 Room Air 03/23/25 21:26 Nasal Cannula 2 Laboratory Results 03/24/25 05:28 03/24/25 05:28
--- NOTE | 2025-03-24 10:16 | Magnetic Resonance Report ---
MR brain wo con HISTORY: 69 years-old Female AMS acutely altered mental status COMPARISON: Head CT 03/17/2025 TECHNIQUE: Multiplanar multisequence MRI of the brain was obtained without IV contrast FINDINGS: No restricted diffusion. Midline structures appear unremarkable. Partially empty sella. No acute intr acranial hemorrhage, midline shift, abnormal extra-axial collection, hydrocephalus or intra-axial mas s. Study is motion degraded. Involutional changes with extensive T2/FLAIR hyperintense foci throughou t the white matter. Cerebral venous sinuses and major arterial flow voids appear patent. Skull, orbits and soft tissues a re unremarkable. Prior bilateral lens repair. Mastoid air cells and paranasal sinuses are generally c lear. IMPRESSION: 1. No acute intracranial abnormality. 2. Involutional changes with extensive chronic microvascular ischemic disease. ACT 112: Negative or not required by law. The above report was generated using voice recognition software. It may contain grammatical, syntax o r spelling errors. Electronically signed by: Kameron Lovelace M.D. 03/24/2025 10:14 AM
[2025-03-24 10:56] LABS: Appearance Urine Cloudy (Clear); Bacteria Urine Automated None Seen (None Seen); Epithelial Cell Urine Auto 0-2 /hpf (0-2); Glucose Urine UA Negative (Negative); WBC Urine Automated 21-50 /hpf (0-5)
[2025-03-24 11:07] LABS: Cast Urine Automated 0-2 /lpf (0-2); RBC Urine Automated 0-2 /hpf (0-2)
--- NOTE | 2025-03-24 11:10 | Orthopedic Progress Note ---
Date of Service March 24, 2025 Assessment & Plan (1) Spinal epidural abscess: Plan: Today we will continue to encourage patient to stand and transfer to a chair. Will continue to monitor her EMILY output. Again I have a low threshold to repeat I&D lumbar spine. Admission and Anticipated Discharge Date Admission Date: February 25, 2025 Subjective Patient is currently having her PICC line placed. She did stand yesterday with assistance. Physical Exam Physical Exam: Patient in the sterile procedure at this time. Results & Data Vital Signs (Past 12 Hours) Vital Signs Temp Pulse Pulse Resp BP BP Pulse Ox 03/24/25 07:58 38.1 C H 104 H 20 116/65 90 03/24/25 07:16 107 H 03/24/25 03:05 37.3 C 106 H 16 154/82 H 95 03/23/25 23:10 37.3 C 93 H 18 147/83 H 96 O2 Del Method 03/24/25 07:58 Room Air 03/24/25 07:16 03/24/25 03:05 Room Air 03/23/25 23:10 Room Air Queries Orthopedic Spine Acute Posthemorrhagic Anemia: Yes Obesity: Yes 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
[2025-03-24] MEDS: MAGNESIUM SULFATE / D5W 1 GM/100 ML BAG IV SCH (11:12)
[2025-03-24] MEDS: POTASSIUM CHLORIDE / WTR 20 MEQ/100 ML PLCT IV SCH (11:21)
[2025-03-24] MEDS: POTASSIUM CHLORIDE CRTAB 20 MEQ TABCR PO ONE (11:53)
[2025-03-24] MEDS: POTASSIUM CHLORIDE 20 MEQ/15 ML UDC PO STA (11:53)
--- NOTE | 2025-03-24 12:07 | Hospitalist Progress Note ---
Date of Service March 24, 2025 Assessment & Plan (1) Acute blood loss anemia: (2) Other spondylosis with radiculopathy, lumbar region: (3) Tachycardia: (4) Leukocytosis: (5) Hyponatremia: (6) Hypertension: (7) Hyperlipidemia: (8) Rheumatoid arthritis: Plan This is a 69 year old female with PMH significant for hypertension, hyperlipidemia, rheumatoid arthritis, palpitations, history of bilateral pulmonary emboli, and lumbar spondylosis with radiculopathy who underwent L1-L5 decompression and fusion on 02/25/[address] Nova. We have been consulted for post operative medical management. Spondylosis with radiculopathy, lumbar region Post-op spinal epidural abscess s/p washout during revision surgery on 03/07 L1-L5 decompression and fusion by Dr. Nova on February 25 complicated by fluid collection, fall with end plate fractures -Post-op lumbar Spine MRI 03/04 due to ongoing BLE weakness and pain * 15x5.1x3.1 cm fluid collection R aspect of subcu fat extending from level L1 vertebra down to level opposite L5 vertebra -Patient fell due overnight and 03/05 CT lumbar spine revealed end plate fracture L4 and pedicle fx of L5 on the right, prompting revision surgery on 03/07 -S/p removal of posterior segmental instrumentation L2 L4-L5, revision decompression with bilateral foraminotomies L4-L5, kyphoplasty L2 L4 and L5 vertebral bodies, revision fusion L4-L5, L5-S1 -Epidural space and lumbar fascia OR cultures growing E coli, Morganella, corynebacterium, and staph epidermidis -ID consulted for further recs given duration of abx, likely to need for suppre ssive therapy given hardware -recommended Rocephin 2g q24hrs, Vancomycin for 6 weeks and po rifampin 300mg BID x 3 months Monitor CRP every other week and CBC, CMP , vancomycin level every week while being on IV antibiotics. After completion of IV antibiotic, she will need suppressive antibiotic given the hardware in which will be Bactrim, unfortunately no option for staph epidermidis given the sensitivities results. Dr. Nova recommending continued PT/OT and discharge to acute rehab. Continue incentive spirometry, encourage movement as able Pt s/p I&D w/ Dr. Nova on 03/18 once more- culture grew Enterococcus faecium and velia albicans -discussed with Dr. Sharp from [facility] on 03/20 who recommended: switching Vancomycin to Daptomycin to cover for possible VRE, re- starting Rocephin and adding Fluconazole to the regimen (d/c rifampin as well). More recommendations to follow. 03/21- case discussed with ID once more today given sensisitivities and BRENDAN levels. Per Dr. Sharp: "...Since the VRE has high BRENDAN >4 for daptomycin, I would recommend starting on oral linezolid 600 mg twice daily. Please continue on IV ceftriaxone and reduce the dose to 2 g once daily. Also, continue on oral fluconazole and increase the dose to 600 mg once daily. Anticipated end date for IV ceftriaxone will be April 28, 2025. For both linezolid and fluconazole, she will likely require to be on them for life if tolerated. Please make sure to send for weekly CBC and CMP for the next 8 weeks after discharge. I would recommend that the patient got the labs done at [facility] facility so that I can follow up on them closely..." PT/OT 03/22- PICC line placement attempt unsuccessful. 03/23- working on ambulation. continue with abx, awaiting PICC placement 03/24-MRI brain unremarkable for bleed or stroke, got her PICC line placed today Acute DVT/ Pulmonary Emboli Sinus Tachycardia Pt with hypoxia and tachycardia on 03/12, requiring 2-3L of oxygen CTA chest obtained which noted pulmonary emboli bilaterally throughout the lungs EKG noting sinus tachycardia Echo ordered to confirm no heart strain IV heparin ordered, was started on warfarin before transitioning to IV heparin once more for the repeat procedure Continue to monitor on telemetry Overnight heparin held as Hgb 6.2 - this may have been incorrect value - pt reported they had difficulty getting blood work. received 1 unit of pRBC and Hgb stable, FOBT negative Restarted IV heparin and put on hold 03/18 AM prior to surgery Pt currently tachycardic once more on 03/20 with hypertension- could be pain related as she has been trying to get up to walk and stand. EKG ordered noting sinus tachycardia, IV lopressor 5mg given. Pain control prn. IV heparin resumed. Started on Toprol 25mg BID 03/23- hgb 7.2 today, will repeat. No po anticoagulation transition yet Acute blood loss anemia 2/2 surgery as above overnight Hgb checked and was down at 6.2 - however likely not correct value - per had difficulty obtaining blood work on her received 1 unit of pRBC -> Hgb 8.8 on 03/17 FOBT checked and negative, stool seen - light brown IV heparin was restarted and put on hold AM prior to procedure - 03/18 03/19 cont. to hold IV heparin , until ok to resume per surgeon 03/20-IV heparin resumed 03/23- hgb 7.2 today, will repeat. No po anticoagulation transition yet Chronic Hyponatremia Na 130-132 Patient notes poor PO intake Hold HCTZ and monitor sodium levels Nephrology consulted, appreciate recs Hypomagnesemia Repleting orally only per Nephrology Per nephrology- IV mag has d5w which can cause already low sodium level to go even lower Pre-Diabetes Steroid induced hyperglycemia -> resolved A1C 6.3 BSG elevated likely in setting of IV steroids, has downtrended since steroids dc'd on 03/09 Discontinued SSI, monitor BSG on AM BMP Hypertension Continue home amlodipine, spironolactone Hold HCTZ for low sodium Rheumatoid arthritis Hold leflunomide Thank you for this consultation. We will follow the patient with you during their hospital stay. You can reach a [facility] via [employer]. Admission and Anticipated Discharge Date Admission Date: February 25, 2025 Subjective Pt was seen in the AM after her MRI with at bedside AAOx3, stating emphatically that she was not confused. Per nursing, not true fever noted Got PICC line today Review of Systems Review of Systems: All systems reviewed & are unremarkable except as noted in Subjective Physical Exam Physical Exam: General: No acute distress HEENT: NC/AT CV: RRR Resp:no increased effort of breathing Abdomen: Soft, nontender Extremities: edema in lower extremities bilaterally and very tender to palpation. Results & Data Results & Data Vital Signs (Past 12 Hours) Vital Signs Temp Pulse Pulse Resp BP BP Pulse Ox 03/24/25 07:58 38.1 C H 104 H 20 116/65 90 03/24/25 07:16 107 H 03/24/25 03:05 37.3 C 106 H 16 154/82 H 95 O2 Del Method 03/24/25 07:58 Room Air 03/24/25 07:16 03/24/25 03:05 Room Air
[2025-03-24 14:37] LABS: ANTI-Xa, UFH(UnfractionatedHep 0.22 IU/ml (0.3-0.7)
[2025-03-24] MEDS: MAGNESIUM CHLORIDE W/CALCIUM 64MG DELAYED REL TAB PO SCH (20:20)
[2025-03-24 21:25] LABS: Anion Gap 6.0 (3-11); Blood Urea Nitrogen 9.0 mg/dl (6-23); Calcium 7.7 mg/dl (8.6-10.3); Carbon Dioxide 25.0 mmol/L (21-32); Chloride 94.0 mmol/L (98-107); Creatinine Clr Calc Pharmacy 101.1 ml/min; Glucose 100.0 mg/dl (70-99(Fasting)); Potassium 4.5 mmol/L (3.5-5.1); Sodium 125.0 mmol/L (136-145)
[2025-03-24 21:38] LABS: ANTI-Xa, UFH(UnfractionatedHep 0.28 IU/ml (0.3-0.7)
[2025-03-25 03:50] LABS: Hematocrit (blood only) 22.0 % (37.0-47.0); Hemoglobin 7.0 g/dl (12.0-16.0); Immature Granulocytes # (auto) 0.12 K/uL (0.01-0.20); Immature Granulocytes % (auto) 1.5 %; Mean Corpuscular Hemoglobin 25.4 pg (25.0-34.0); Mean Corpuscular Volume 79.7 fL (80.0-100.0); Platelet Count 513 K/uL (130-400); RDW Standard Deviation 47.6 fL (36.4-46.3); Red Blood Count 2.76 M/uL (4.20-5.40); White Blood Count 7.82 K/ul (4.8-10.8)
[2025-03-25 04:08] LABS: Alanine Aminotransferase 13.0 U/L (7-52); Albumin Globulin Ratio 0.8 (0.9-2); Alkaline Phosphatase 289.0 U/L (34-104); Anion Gap 6.0 (3-11); Bilirubin,Total 0.3 mg/dl (0.2-1.0); Blood Urea Nitrogen 7.0 mg/dl (6-23); Calcium 7.8 mg/dl (8.6-10.3); Carbon Dioxide 26.0 mmol/L (21-32); Chloride 94.0 mmol/L (98-107); Creatinine Clr Calc Pharmacy 99.4 ml/min; Globulin 2.7 gm/dl (2.5-4.0); Glucose 89.0 mg/dl (70-99(Fasting)); Magnesium 2.0 mg/dl (1.7-2.4); Potassium 4.5 mmol/L (3.5-5.1); Sodium 126.0 mmol/L (136-145); Total Protein 4.9 gm/dl (6.0-8.3)
[2025-03-25 04:13] LABS: ANTI-Xa, UFH(UnfractionatedHep 0.41 IU/ml (0.3-0.7)
[2025-03-25 04:25] LABS: INR 1.1 (0.9-1.1); Polychromasia 1+; Prothrombin Time 11.9 Seconds (9.0-12.0)
--- NOTE | 2025-03-25 09:45 | Nephrology Progress Note ---
Date of Service March 25, 2025 Assessment & Plan Admission and Anticipated Discharge Date Admission Date: February 25, 2025 Subjective Assessment & Plan (1) Acute on Chronic hyponatremia: Plan: present prior to admission and mild. likely multifactorial . pre-existing mild hyponatremia in pt on hctz na has not improved--if anything has got worse in last 4 days. current sodium 125 Will change course and change the management completely different. Will manage it as SIADH with +/- volume depletion. given high BP doubt much vol depletion now. Add FFR 1500 ml. Add urea 15 gm bid. NS at 50 ml/hr for 1000 ml for salt and volume load. Add lasix 30 iv q8h for free water diuresis. BMP q12. Current k is 4.5 bit with iv lasix will need more k--so raise kcl to 20 tid. Mag normal today Subjective Na continues to drift down with current management for many days now. BP is high now. patient is not eating much and as per the nursing and her she is eating no more than 25% of her meal Review of Systems Review of Systems: All systems reviewed & are unremarkable except as noted in Subjective Physical Exam Constitutional: well developed, + obese, + altered mental status (Question due to fatigue?), + physical limitations (limited ROM limbs) and + frail appearing; no acute distress Eyes: EOM intact bilaterally ENMT: Ears: no external ear abnormality Nose: no external nose abnormality Mouth: + dry oral mucous membranes Neck: no nuchal rigidity Respiratory: normal respiratory effort Auscultation: + diminished lung sounds Cardiovascular: Rate/Rhythm: regular rhythm and + tachycardic (in 100s) Extremities: no edema (including none peripheral) Gastrointestinal (Abdomen): Inspection/Auscultation: normal bowel sounds and + abdominal surgical drain present Percussion/Palpation: abdomen soft; abdomen nontender Skin: no rashes, warm and dry Results & Data Vital Signs (Past 12 Hours) Vital Signs Temp Pulse Pulse Resp BP BP Pulse Ox 03/25/25 08:19 37.9 C H 105 H 18 175/78 H 93 03/25/25 06:26 91 H 03/25/25 03:03 37.5 C 91 H 22 145/81 H 93 03/25/25 00:40 37 C 03/24/25 22:57 37.6 C H 103 H 20 161/84 H 96 03/24/25 22:25 99 H O2 Del Method 03/25/25 08:19 Room Air 03/25/25 06:26 03/25/25 03:03 Room Air 03/25/25 00:40 03/24/25 22:57 Nasal Cannula 03/24/25 22:25
[2025-03-25] MEDS: FUROSEMIDE INJ 20 MG/2 ML VIAL IV SCH (10:32)
[2025-03-25] MEDS: UREA (UREA-NA) 15 GM PACK PO SCH (10:33)
[2025-03-25] MEDS: SODIUM CHLORIDE 0.9% 1,000 ML IV SCH (10:36)
[2025-03-25 10:55] LABS: Anion Gap 7.0 (3-11); Blood Urea Nitrogen 6.0 mg/dl (6-23); Calcium 7.9 mg/dl (8.6-10.3); Carbon Dioxide 25.0 mmol/L (21-32); Chloride 93.0 mmol/L (98-107); Creatinine Clr Calc Pharmacy 114.9 ml/min; Glucose 111.0 mg/dl (70-99(Fasting)); Potassium 4.1 mmol/L (3.5-5.1); Sodium 125.0 mmol/L (136-145)
[2025-03-25 12:29] LABS: Hematocrit (blood only) 22.6 % (37.0-47.0); Hemoglobin 7.6 g/dl (12.0-16.0)
--- NOTE | 2025-03-25 12:47 | Orthopedic Progress Note ---
Date of Service March 25, 2025 Assessment & Plan (1) Spinal epidural abscess: Plan: This time I would like to repeat I&D lumbar spine secondary to continued drainage and erythema of the lumbar incision. May consider placement of a wound VAC at that time. She will be made n.p.o. after midnight. Admission and Anticipated Discharge Date Admission Date: February 25, 2025 Subjective Patient is still struggling with weightbearing. No other pain at this time. Physical Exam Physical Exam: On exam she continues to demonstrate loss of dorsiflexion bilaterally but has reasonable plantarflexion and quadricep strength. Results & Data Vital Signs (Past 12 Hours) Vital Signs Temp Pulse Pulse Resp BP BP Pulse Ox 03/25/25 11:51 36.7 C 105 H 20 165/104 H 93 03/25/25 10:42 168/95 H 03/25/25 08:19 37.9 C H 105 H 18 175/78 H 93 03/25/25 06:26 91 H 03/25/25 03:03 37.5 C 91 H 22 145/81 H 93 O2 Del Method 03/25/25 11:51 Room Air 03/25/25 10:42 03/25/25 08:19 Room Air 03/25/25 06:26 03/25/25 03:03 Room Air Queries Orthopedic Spine Acute Posthemorrhagic Anemia: Yes Obesity: Yes 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
--- NOTE | 2025-03-25 15:14 | Hospitalist Progress Note ---
Date of Service March 25, 2025 Assessment & Plan (1) Acute blood loss anemia: (2) Other spondylosis with radiculopathy, lumbar region: (3) Tachycardia: (4) Leukocytosis: (5) Hyponatremia: (6) Hypertension: (7) Hyperlipidemia: (8) Rheumatoid arthritis: Plan This is a 69 year old female with PMH significant for hypertension, hyperlipidemia, rheumatoid arthritis, palpitations, history of bilateral pulmonary emboli, and lumbar spondylosis with radiculopathy who underwent L1-L5 decompression and fusion on 02/25/[address] Nova[address] We have been consulted for post operative medical management. Spondylosis with radiculopathy, lumbar region Post-op spinal epidural abscess s/p washout during revision surgery on 03/07 L1-L5 decompression and fusion by Dr. Nova on February 25 complicated by fluid collection, fall with end plate fractures -Post-op lumbar Spine MRI 03/04 due to ongoing BLE weakness and pain * 15x5.1x3.1 cm fluid collection R aspect of subcu fat extending from level L1 vertebra down to level opposite L5 vertebra -Patient fell due overnight and 03/05 CT lumbar spine revealed end plate fracture L4 and pedicle fx of L5 on the right, prompting revision surgery on 03/07 -S/p removal of posterior segmental instrumentation L2 L4-L5, revision decompression with bilateral foraminotomies L4-L5, kyphoplasty L2 L4 and L5 vertebral bodies, revision fusion L4-L5, L5-S1 -Epidural space and lumbar fascia OR cultures growing E coli, Morganella, corynebacterium, and staph epidermidis -ID consulted for further recs given duration of abx, likely to need for suppre ssive therapy given hardware -recommended Rocephin 2g q24hrs, Vancomycin for 6 weeks and po rifampin 300mg BID x 3 months Monitor CRP every other week and CBC, CMP , vancomycin level every week while being on IV antibiotics. After completion of IV antibiotic, she will need suppressive antibiotic given the hardware in which will be Bactrim, unfortunately no option for staph epidermidis given the sensitivities results. Dr. Nova recommending continued PT/OT and discharge to acute rehab. Continue incentive spirometry, encourage movement as able Pt s/p I&D w/ Dr. Nova on 03/18 once more- culture grew Enterococcus faecium and velia albicans -discussed with Dr. Sharp from [facility] on 03/20 who recommended: switching Vancomycin to Daptomycin to cover for possible VRE, re- starting Rocephin and adding Fluconazole to the regimen (d/c rifampin as well). More recommendations to follow. 03/21- case discussed with ID once more today given sensisitivities and BRENDAN levels. Per Dr. Sharp: "...Since the VRE has high BRENDAN >4 for daptomycin, I would recommend starting on oral linezolid 600 mg twice daily. Please continue on IV ceftriaxone and reduce the dose to 2 g once daily. Also, continue on oral fluconazole and increase the dose to 600 mg once daily. Anticipated end date for IV ceftriaxone will be April 28, 2025. For both linezolid and fluconazole, she will likely require to be on them for life if tolerated. Please make sure to send for weekly CBC and CMP for the next 8 weeks after discharge. I would recommend that the patient got the labs done at [facility] so that I can follow up on them closely..." PT/OT 03/22- PICC line placement attempt unsuccessful. 03/23- working on ambulation. continue with abx, awaiting PICC placement 03/24-MRI brain unremarkable for bleed or stroke, got her PICC line placed today 03/25- low grade fevers and draining surgical wound but improving wbc. Per orthospine will be NPO after midnight for another I&D for source control. ID also consulted once more, awaiting further recs. Continue with IV Rocephin, po linezolid and po diflucan in the interim. Acute DVT/ Pulmonary Emboli Sinus Tachycardia Pt with hypoxia and tachycardia on 03/12, requiring 2-3L of oxygen CTA chest obtained which noted pulmonary emboli bilaterally throughout the lungs EKG noting sinus tachycardia Echo ordered to confirm no heart strain IV heparin ordered, was started on warfarin before transitioning to IV heparin once more for the repeat procedure Continue to monitor on telemetry Overnight heparin held as Hgb 6.2 - this may have been incorrect value - pt reported they had difficulty getting blood work. received 1 unit of pRBC and Hgb stable, FOBT negative Restarted IV heparin and put on hold 23 AM prior to surgery Pt currently tachycardic once more on 03/20 with hypertension- could be pain related as she has been trying to get up to walk and stand. EKG ordered noting sinus tachycardia, IV lopressor 5mg given. Pain control prn. IV heparin resumed. Started on Toprol 25mg BID 03/23- hgb 7.2 today, will repeat. No po anticoagulation transition yet 03/24- hold IV heparin 6 hours before procedure in AM Acute blood loss anemia 2/2 surgery as above overnight Hgb checked and was down at 6.2 - however likely not correct value - per had difficulty obtaining blood work on her received 1 unit of pRBC -> Hgb 8.8 on 03/17 FOBT checked and negative, stool seen - light brown IV heparin was restarted and put on hold AM prior to procedure - 03/18 03/19 cont. to hold IV heparin , until ok to resume per surgeon 03/20-IV heparin resumed 03/23- hgb 7.2 today, will repeat. No po anticoagulation transition yet 03/24- hgb 7.0 in AM, stable on repeat Chronic Hyponatremia Na 130-132 Patient notes poor PO intake Hold HCTZ and monitor sodium levels Nephrology consulted, appreciate recs Hypomagnesemia Repleting orally only per Nephrology Per nephrology- IV mag has d5w which can cause already low sodium level to go even lower Pre-Diabetes Steroid induced hyperglycemia -> resolved A1C 6.3 BSG elevated likely in setting of IV steroids, has downtrended since steroids dc'd on 03/09 Discontinued SSI, monitor BSG on AM BMP Hypertension Continue home amlodipine, spironolactone Hold HCTZ for low sodium Rheumatoid arthritis Hold leflunomide Thank you for this consultation. We will follow the patient with you during their hospital stay. You can reach a member of the [facility] Hospitalist Team 18/04 via [employer]. Admission and Anticipated Discharge Date Admission Date: February 25, 2025 Subjective Pt was seen with at bedside Was trying to eat lunch Awake and alert, asking questions. Low grade fevers but normal wbc Review of Systems Review of Systems: All systems reviewed & are unremarkable except as noted in Subjective Physical Exam Physical Exam: General: No acute distress HEENT: NC/AT CV: RRR Resp:no increased effort of breathing Abdomen: Soft, nontender Extremities: edema in lower extremities bilaterally and very tender to palpation. Results & Data Results & Data Vital Signs (Past 12 Hours) Vital Signs Temp Pulse Pulse Resp BP BP Pulse Ox 03/25/25 11:51 36.7 C 105 H 20 165/104 H 93 03/25/25 10:42 168/95 H 03/25/25 08:19 37.9 C H 105 H 18 175/78 H 93 03/25/25 06:26 91 H 03/25/25 03:03 37.5 C 91 H 22 145/81 H 93 O2 Del Method 03/25/25 11:51 Room Air 03/25/25 10:42 03/25/25 08:19 Room Air 03/25/25 06:26 03/25/25 03:03 Room Air
[2025-03-25] MEDS ORDERED: Nursing to Pharmacy Communication SCH (15:15)
[2025-03-25] MEDS: POTASSIUM CHLORIDE CRTAB 20 MEQ TABCR PO SCH (15:20)
[2025-03-25 23:25] LABS: Anion Gap 10.0 (3-11); Blood Urea Nitrogen 15.0 mg/dl (6-23); Calcium 8.3 mg/dl (8.6-10.3); Carbon Dioxide 26.0 mmol/L (21-32); Chloride 89.0 mmol/L (98-107); Creatinine Clr Calc Pharmacy 90.9 ml/min; Glucose 105.0 mg/dl (70-99(Fasting)); Potassium 3.7 mmol/L (3.5-5.1); Sodium 125.0 mmol/L (136-145)
[2025-03-26 05:52] LABS: Hematocrit (blood only) 22.9 % (37.0-47.0); Hemoglobin 7.5 g/dl (12.0-16.0); Immature Granulocytes # (auto) 0.16 K/uL (0.01-0.20); Immature Granulocytes % (auto) 1.6 %; Mean Corpuscular Hemoglobin 26.0 pg (25.0-34.0); Mean Corpuscular Volume 79.2 fL (80.0-100.0); Platelet Count 514 K/uL (130-400); RDW Standard Deviation 46.6 fL (36.4-46.3); Red Blood Count 2.89 M/uL (4.20-5.40); White Blood Count 9.80 K/ul (4.8-10.8)
[2025-03-26 06:17] LABS: Alanine Aminotransferase 17.0 U/L (7-52); Albumin Globulin Ratio 0.9 (0.9-2); Alkaline Phosphatase 324.0 U/L (34-104); Anion Gap 9.0 (3-11); Bilirubin,Total 0.4 mg/dl (0.2-1.0); Blood Urea Nitrogen 13.0 mg/dl (6-23); Calcium 7.9 mg/dl (8.6-10.3); Carbon Dioxide 27.0 mmol/L (21-32); Chloride 90.0 mmol/L (98-107); Creatinine Clr Calc Pharmacy 77.1 ml/min; Globulin 2.8 gm/dl (2.5-4.0); Glucose 82.0 mg/dl (70-99(Fasting)); Magnesium 1.5 mg/dl (1.7-2.4); Potassium 3.6 mmol/L (3.5-5.1); Sodium 126.0 mmol/L (136-145); Total Protein 5.2 gm/dl (6.0-8.3)
[2025-03-26 06:22] LABS: Polychromasia 1+
--- NOTE | 2025-03-26 07:42 | Hospitalist Progress Note ---
Date of Service March 26, 2025 Assessment & Plan (1) Acute blood loss anemia: (2) Other spondylosis with radiculopathy, lumbar region: (3) Tachycardia: (4) Leukocytosis: (5) Hyponatremia: (6) Hypertension: (7) Hyperlipidemia: (8) Rheumatoid arthritis: Plan Ms Kaur is a 69 year old female with PMH significant for hypertension, hyperlipidemia, rheumatoid arthritis, palpitations, history of bilateral pulmonary emboli, and lumbar spondylosis with radiculopathy who underwent L1-L5 decompression and fusion on 02/25/[address] Nova. We have been consulted for post operative medical management. Course complicated by spinal epidural abscess s/p most recent ID on 03/26. Awaiting stabilization of sodium, as well as monitoring post op labs for any further anemia prior to transitioning to po anticoagulation #Post-op spinal epidural abscess s/p washout #Spondylosis with radiculopathy, lumbar region -02/25 L1-L5 decompression and fusion by Dr. Nova complicated by fluid collection, fall with end plate fractures -03/04 Post-op lumbar Spine MRI due to ongoing BLE weakness and pain revealed 15x5.1x3.1 cm fluid collection R aspect of subcu fat extending from level L1 vertebra down to level opposite L5 vertebra -03/05 fall overnight, CT lumbar spine revealed end plate fracture L4 and pedicle fx of L5 on the right, prompting revision surgery on 03/07 -03/07 S/p removal of posterior segmental instrumentation L2 L4-L5, revision decompression with bilateral foraminotomies L4-L5, kyphoplasty L2 L4 and L5 vertebral bodies, revision fusion L4-L5, L5-S1 -03/07 Epidural space and lumbar fascia OR cultures growing E coli, Morganella, corynebacterium, and staph epidermidis -03/18 s/p I&D w/ Dr. Nova - culture grew Enterococcus faecium VRE and velia albicans -03/26 s/ I&D w/ Dr. Nova, serous fluid noted but no gross purulence per r eview of op report Per prior hospitalist: "03/21- case discussed with ID once more today given sensitivities and BRENDAN levels. Per Dr. Sharp: "...Since the VRE has high BRENDAN >4 for daptomycin, I would recommend starting on oral linezolid 600 mg twice daily. Please continue on IV ceftriaxone and reduce the dose to 2 g once daily. Also, continue on oral fluconazole and increase the dose to 600 mg once daily. Anticipated end date for IV ceftriaxone will be April 28, 2025. For both linezolid and fluconazole, she will likely require to be on them for life if tolerated. Please make sure to send for weekly CBC and CMP for the next 8 weeks after d ischarge. I would recommend that the patient got the labs done at [facility] so that I can follow up on them closely..." PT/OT as tolerated Follow up cultures from 03/26 #Acute DVT/ Pulmonary Emboli #Sinus Tachycardia Pt with hypoxia and tachycardia on 03/12, requiring 2-3L of oxygen, now on room air CTA chest obtained which noted pulmonary emboli bilaterally throughout the lungs EKG noting sinus tachycardia Echo ordered to confirm no heart strain 03/16 received 1 unit of pRBC and Hgb stable, FOBT negative Started on Toprol 25mg BID, continue Continue heparin when cleared by Dr. Nova to resume #Acute blood loss anemia 2/ surgery as above, s/p transfusion on 03/16 FOBT checked and negative, stool seen - light brown Follow post op H&H, transfuse < 7.0 Resume heparin as able per Primary service #Acute on Chronic Hyponatremia, likely siadh Na 130-132, down to 126 Nephrology consulted, appreciate recs; reviewed: continue lasix q 8 h, kcl replacement qid, NS 50cc/hr for salt/volume, FR 1.5L, urea bid CTM #Hypomagnesemia Repleting orally only per Nephrology #Pre-Diabetes Steroid induced hyperglycemia -> resolved A1C 6.3 ctm on bmp #Hypertension Continue home amlodipine, spironolactone Hold HCTZ for low sodium #Rheumatoid arthritis Hold leflunomide Thank you for this consultation. We will follow the patient with you during their hospital stay. You can reach a member of the [facility] Hospitalist Team 18/04 via [employer]. Admission and Anticipated Discharge Date Admission Date: February 25, 2025 Subjective s/p I&D today reports feeling groggy after surgery and hungry denies any post operative pain or other concerns on time of exam at bedside and reports questions answered by Dr Nova after the procedure Physical Exam Constitutional: lethargic s/p procedure, no distress, Respiratory: normal respiratory effort, lungs clear to auscultation Cardiovascular: RRR, no murmur, no edema Gastrointestinal (Abdomen): normal bowel sounds, soft, nontender, no hepatosplenomegaly Results & Data Results & Data Vital Signs (Past 12 Hours) Vital Signs Temp Pulse Pulse Resp BP Pulse Ox O2 Del Method 03/26/25 02:50 37.1 C 92 H 20 143/79 H 91 Room Air 03/26/25 00:37 37.6 C H 112 H 20 03/25/25 23:31 38.8 C H 118 H 18 190/67 H 93 Room Air 03/25/25 22:54 109 H 03/25/25 20:00 Room Air Laboratory Results Short CBC 03/26/25 Range/Units 05:27 WBC 9.80 (4.8-10.8) K/ul Hgb 7.5 L (12.0-16.0) g/dl Hct 22.9 L (37.0-47.0) % Plt Count 514 H (130-400) K/uL BMP 03/25/25 03/26/25 03/26/25 22:38 05:27 10:28 Sodium 125 L 126 L 126 L Potassium 3.7 3.6 3.3 L Chloride 89 L 90 L 91 L Carbon Dioxide 26 27 26 BUN 15 13 12 Creatinine 0.67 0.79 0.75 Glucose 105 H 82 84 Calcium 8.3 L 7.9 L 7.8 L Liver Function 03/26/25 Range/Units 05:27 Total Bilirubin 0.4 (0.2-1.0) mg/dl AST 31 (13-39) U/L ALT 17 (7-52) U/L Alkaline Phosphatase 324 H (34-104) U/L Albumin 2.4 L (3.4-5.0) gm/dl Medications Administered Home Medications Medication Instructions Recorded Confirmed Last Taken amlodipine 5 mg tablet 5 mg PO BID 01/31/25 02/25/25 02/25/25 04:30 ascorbic acid (vitamin C) 500 mg 500 mg PO DAILY 01/31/25 02/25/25 02/24/25 09:00 tablet (Vitamin C) cholecalciferol (vitamin D3) 25 25 mcg PO DAILY 01/31/25 02/25/25 02/24/25 09:00 mcg (1,000 unit) capsule (Vitamin D3) etanercept 50 mg/mL (1 mL) 50 mg subcut WK 01/31/25 02/25/25 02/24/25 09:00 subcutaneous cartridge (Enbrel Mini) hydrochlorothiazide 25 mg tablet 25 mg PO QAM 01/31/25 02/25/25 02/24/25 09:00 leflunomide 10 mg tablet 10 mg PO QAM 01/31/25 02/25/25 02/17/25 09:00 magnesium 200 mg tablet 200 mg PO DAILY 01/31/25 02/25/25 02/23/25 09:00 multivitamin 1 tab PO DAILY 01/31/25 02/25/25 02/23/25 09:00 omega-3 fatty acids 1,000 mg PO DAILY 01/31/25 02/25/25 02/17/25 09:00 potassium chloride 10 mEq 20 meq PO QAM 01/31/25 02/25/25 02/24/25 09:00 tablet,extended release (Klor-Con) spironolactone 25 mg tablet 25 mg PO QAM 01/31/25 02/25/25 02/24/25 09:00 zolpidem 10 mg tablet 10 mg PO HS PRN prn 01/31/25 02/25/25 02/24/25 20:00 oxycodone 5 mg tablet 5 mg PO Q6H PRN pain #30 tabs 02/26/25 Unknown tramadol 50 mg tablet 50 mg PO Q6H PRN pain, moderate 02/26/25 Unknown #30 tabs aspirin 81 mg tablet 81 mg PO DAILY 02/28/25 02/28/25 Unknown rifampin 300 mg capsule 300 mg PO BID #60 caps 03/15/25 Unknown Active Medications Generic Name Dose Route Start Last Admin Trade Name Freq PRN Reason Stop Dose Admin Al Hydrox/Mg Hydrox/Simethicone 30 ml 02/25/25 14:54 03/10/25 18:41 Aluminum/Magnesium Susp 30 Ml Udc PO 04/27/25 14:53 30 ml Q6H PRN Administration Dyspepsia Ascorbic Acid 500 mg 02/26/25 09:00 03/26/25 11:39 Ascorbic Acid 500 Mg Tab PO 04/28/25 08:59 Not Given DAILY PATRICK Clotrimazole 1 appln 03/12/25 21:00 03/26/25 08:33 Clotrimazole 1% Cr 15 Gm Tube EXT 04/11/25 20:59 1 appln BID PATRICK Administration Famotidine 20 mg 02/25/25 14:54 03/23/25 16:36 Famotidine 20 Mg Tab PO 04/27/25 14:53 20 mg Q12H PRN Administration Dyspepsia Fluconazole 600 mg 03/21/25 15:50 03/26/25 11:39 Fluconazole 100 Mg Tab PO 03/31/25 15:49 Not Given QAM PATRICK Folic Acid 1 mg 03/21/25 09:00 03/26/25 11:39 Folic Acid 1 Mg Tab PO 04/20/25 08:59 Not Given QAM PATRICK Protocol Furosemide 30 mg 03/25/25 10:00 03/26/25 14:28 Furosemide Inj 20 Mg/2 Ml Vial IV 04/24/25 09:59 30 mg Q8H PATRICK Administration Heparin Sodium (Beef Lung) 5 ml 03/24/25 11:03 03/25/25 08:32 Heparin 10 Unit/Ml 5 Ml Flush FLUSH 04/23/25 11:02 10 ml PRN PRN Administration Flush Hydrocortisone 1 appln 03/22/25 15:23 03/23/25 08:21 Hydrocortisone Hc 2.5% Crm 30gm Tube EXT 04/21/25 15:22 1 appln BID PRN Administration Hemorrhoids Hydromorphone HCl 1 mg 03/16/25 15:45 03/26/25 17:12 Hydromorphone Hcl 2 Mg Tab PO 03/30/25 15:44 1 mg Q4H PRN Administration Pain Ceftriaxone Sodium 2,000 mg in 50 mls @ 100 mls/hr 03/22/25 09:00 03/26/25 10:58 Rocephin IV 04/01/25 08:59 Infused DAILY PATRICK Infusion Acetaminophen 1,000 mg in 100 mls @ 400 mls/hr 03/22/25 16:00 03/26/25 17:07 Ofirmev IV 03/28/25 15:59 Infused Q8H PATRICK Infusion Sodium Chloride 1,000 mls @ 50 mls/hr 03/26/25 09:15 03/26/25 14:28 Nss IV 03/27/25 05:14 50 mls/hr .Q20H PATRICK Administration Lactobacillus Acidophilus 1,250 mg 03/14/25 09:45 03/26/25 11:39 Advanced Probiotic 625 Mg Capsule PO 04/13/25 09:44 Not Given DAILY PATRICK Lidocaine 1 patch 03/03/25 10:00 03/26/25 08:31 Lidocaine 5% 1 Patch TD 04/02/25 09:59 1 patch QAM PATRICK Administration Linezolid 600 mg 03/21/25 21:00 03/26/25 14:27 Linezolid 600 Mg Tab PO 03/31/25 20:59 600 mg BID PATRICK Administration Magnesium Chloride 128 mg 03/24/25 21:00 03/26/25 14:58 Magnesium Chloride W/Calcium 64mg Delayed Rel Tab PO 04/23/25 20:59 128 mg TID PATRICK Administration Magnesium Hydroxide 30 ml 02/25/25 14:54 03/08/25 21:05 Magnesium Hydroxide Susp 30 Ml Udc PO 04/27/25 14:53 30 ml Q24H PRN Administration Constipation Melatonin 6 mg 03/17/25 02:21 03/23/25 20:06 Melatonin 3 Mg Tab PO 04/15/25 15:48 6 mg HS PRN Administration Sleep Metoprolol Succinate 25 mg 03/22/25 21:00 03/26/25 14:28 Metoprolol Succ 25mg Ext Rel Tab PO 04/21/25 20:59 25 mg BID PATRICK Administration Miscellaneous 1 each 03/03/25 21:00 03/25/25 20:50 Remove Lidoderm Patch N/A 04/02/25 20:59 1 each DAILY@2100 PATRICK Administration Multivitamins 1 tab 02/26/25 09:00 03/26/25 11:39 Multivitamin Tab PO 04/28/25 08:59 Not Given DAILY PATRICK Ondansetron HCl 4 mg 02/25/25 14:54 03/21/25 08:50 Ondansetron 4 Mg Od Tab PO 04/27/25 14:53 4 mg Q6H PRN Administration Nausea Pantoprazole Sodium 40 mg 02/28/25 10:30 03/26/25 14:28 Pantoprazole 40 Mg Tab PO 04/30/25 10:29 40 mg DAILYBL PATRICK Administration Polyethylene Glycol 17 gm 03/10/25 09:00 03/26/25 11:40 Polyethylene (Miralax) 17 Gm Pack PO 04/09/25 08:59 Not Given DAILY PATRICK Potassium Chloride 30 meq 03/26/25 14:00 03/26/25 14:58 Potassium Chloride Crtab 20 Meq Tabcr PO 04/25/25 13:59 30 meq TID PATRICK Administration Senna/Docusate Sodium 2 tab 02/25/25 21:00 03/25/25 20:51 Docusate Sodium/Senna 50/8.6mg Tab PO 04/27/25 20:59 Not Given HS PATRICK Thiamine HCl 200 mg 03/22/25 09:00 03/26/25 11:40 Thiamine Hcl 100 Mg Tab PO 04/16/25 15:44 Not Given TODAY@0900 PATRICK Urea 15 gm 03/25/25 10:00 03/26/25 11:40 Urea (Urea-Na) 15 Gm Pack PO 04/24/25 09:59 Not Given BID PATRICK Vitamin D 25 mcg 02/26/25 09:00 03/26/25 11:39 Cholecalciferol 25 Mcg (1000 Units) Tab PO 04/28/25 08:59 Not Given DAILY PATRICK
[2025-03-26] MEDS ORDERED: MIDAZOLAM HCL 1 MG/ML 2ML VIAL ONE (09:08)
[2025-03-26] MEDS ORDERED: DEXAMETHASONE SOD INJ 4 MG/ML VIAL ONE (09:08)
[2025-03-26] MEDS ORDERED: ONDANSETRON INJ 2 MG/ML 2 ML VIAL ONE (09:08)
[2025-03-26] MEDS ORDERED: PROPOFOL IV EMULSION 10 MG/ML 20 ML VIAL IV ONE (09:08)
[2025-03-26] MEDS ORDERED: LIDOCAINE 2% 2 ML VIAL/AMP(20MG/ML) INFIL ONE (09:08)
[2025-03-26] MEDS ORDERED: ROCURONIUM BROMIDE 10 MG/ML 5 ML VIAL IV ONE (09:08)
--- NOTE | 2025-03-26 09:08 | Nephrology Progress Note ---
Date of Service March 26, 2025 Assessment & Plan Admission and Anticipated Discharge Date Admission Date: February 25, 2025 Subjective Assessment & Plan (1) Acute on Chronic hyponatremia: Plan: present prior to admission and mild. likely multifactorial . pre-existing mild hyponatremia in pt on hctz na has not improved--if anything has got worse in last 4 days. current sodium 126. na did not drop further. But marked increase in urine so na may rise today. will continue same management today. Will manage it as SIADH FFR 1500 ml. urea 15 gm bid. NS at 50 ml/hr for 1000 ml for salt and volume load. lasix 30 iv q8h for free water diuresis. BMP q12. Current k is 3.6 now with iv lasix will need more k--so raise kcl to 30 tid. Mag normal today Subjective Na same as yesterday but at least did not drop further. patient is not eating much and as per the nursing and her she is eating no more than 25% of her meal Review of Systems Review of Systems: All systems reviewed & are unremarkable except as noted in Subjective Physical Exam Constitutional: well developed, + obese, + altered mental status (Question due to fatigue?), + physical limitations (limited ROM limbs) and + frail appearing; no acute distress Eyes: EOM intact bilaterally ENMT: Ears: no external ear abnormality Nose: no external nose abnormality M outh: + dry oral mucous membranes Neck: no nuchal rigidity Respiratory: normal respiratory effort Auscultation: + diminished lung sounds Cardiovascular: Rate/Rhythm: regular rhythm and + tachycardic (in 100s) Extremities: no edema (including none peripheral) Gastrointestinal (Abdomen): Inspection/Auscultation: normal bowel sounds and + abdominal surgical drain present Percussion/Palpation: abdomen soft; abdomen nontender Skin: no rashes, warm and dry Results & Data Vital Signs (Past 12 Hours) Vital Signs Temp Pulse Pulse Resp BP Pulse Ox O2 Del Method 03/26/25 08:18 37.9 C H 106 H 16 145/78 H 94 Room Air 03/26/25 02:50 37.1 C 92 H 20 143/79 H 91 Room Air 03/26/25 00:37 37.6 C H 112 H 20 03/25/25 23:31 38.8 C H 118 H 18 190/67 H 93 Room Air 03/25/25 22:54 109 H
--- NOTE | 2025-03-26 10:05 | History & Physical Bridge Note ---
Date of Service March 26, 2025 History & Physical Bridge Note I have examined the patient, reviewed the History & Physical and in the interval since the performance of the History & Physical I have noted the following changes of clinical significance: no changes noted Patient is here for irrigation debridement lumbar spine
[2025-03-26] MEDS ORDERED: SUGAMMADEX SODIUM 200 MG/2 ML VIAL IV ONE (10:48)
[2025-03-26] MEDS ORDERED: PHENYLEPHRINE 100MCG/ML 5ML SYR ONE (10:59)
[2025-03-26 11:03] LABS: Anion Gap 9.0 (3-11); Blood Urea Nitrogen 12.0 mg/dl (6-23); Calcium 7.8 mg/dl (8.6-10.3); Carbon Dioxide 26.0 mmol/L (21-32); Chloride 91.0 mmol/L (98-107); Creatinine Clr Calc Pharmacy 77.7 ml/min; Glucose 84.0 mg/dl (70-99(Fasting)); Potassium 3.3 mmol/L (3.5-5.1); Sodium 126.0 mmol/L (136-145)
--- NOTE | 2025-03-26 11:08 | Anesthesiology Consultation ---
Date of Service March 26, 2025 Assessment & Plan (1) Encounter for pre-operative examination: Chart Review Chart Review: Acceptable Risk for Surgery and Patient NOT seen in Pre Admission Testing Consults Requested none Additional Notes chronic hyponatremia and anemia History Surgery Operation Date: 02/25/25 10:05 Proposed Procedures p L2-L5 Decompression and Fusion, Possible L1-L2 Decompression and Fusion, Spinal Cord Monitoring - Adriel Nova DO Operation Date: 03/06/25 13:55 Proposed Procedures p Incision and Drainage Lumbar Spine - Adriel Nova DO Operation Date: 03/07/25 07:45 Proposed Procedures p Incision and Drainage Lumbar Spine, L4-L5 Revision of Fusion, Spinal Cord Monitoring - Adriel Nova DO Operation Date: 03/18/25 08:55 Proposed Procedures p Incision and Drainage Lumbar Spine - Adriel Nova DO Operation Date: 03/26/25 10:45 Proposed Procedures p Incision and Drainage Lumbar Spine, Possible Wound Vac - Adriel Nova DO Height/Weight Height: 5 ft 4 in Weight: 89.3 kg Allergies Allergy/AdvReac Type Severity Reaction Status Date / Time ampicillin Allergy Severe Rash Verified 03/18/25 13:28 terbinafine Allergy Severe Diarrhea Verified 03/18/25 13:28 Medications Home Medications Medication Instructions Recorded Confirmed Last Taken amlodipine 5 mg tablet 5 mg PO BID 01/31/25 02/25/25 02/25/25 04:30 ascorbic acid (vitamin C) 500 mg 500 mg PO DAILY 01/31/25 02/25/25 02/24/25 09:00 tablet (Vitamin C) cholecalciferol (vitamin D3) 25 25 mcg PO DAILY 01/31/25 02/25/25 02/24/25 09:00 mcg (1,000 unit) capsule (Vitamin D3) etanercept 50 mg/mL (1 mL) 50 mg subcut WK 01/31/25 02/25/25 02/24/25 09:00 subcutaneous cartridge (Enbrel Mini) hydrochlorothiazide 25 mg tablet 25 mg PO QAM 01/31/25 02/25/25 02/24/25 09:00 leflunomide 10 mg tablet 10 mg PO QAM 01/31/25 02/25/25 02/17/25 09:00 magnesium 200 mg tablet 200 mg PO DAILY 01/31/25 02/25/25 02/23/25 09:00 multivitamin 1 tab PO DAILY 01/31/25 02/25/25 02/23/25 09:00 omega-3 fatty acids 1,000 mg PO DAILY 01/31/25 02/25/25 02/17/25 09:00 potassium chloride 10 mEq 20 meq PO QAM 01/31/25 02/25/25 02/24/25 09:00 tablet,extended release (Klor-Con) spironolactone 25 mg tablet 25 mg PO QAM 01/31/25 02/25/25 02/24/25 09:00 zolpidem 10 mg tablet 10 mg PO HS PRN prn 01/31/25 02/25/25 02/24/25 20:00 oxycodone 5 mg tablet 5 mg PO Q6H PRN pain #30 tabs 02/26/25 Unknown tramadol 50 mg tablet 50 mg PO Q6H PRN pain, moderate 02/26/25 Unknown #30 tabs aspirin 81 mg tablet 81 mg PO DAILY 02/28/25 02/28/25 Unknown rifampin 300 mg capsule 300 mg PO BID #60 caps 03/15/25 Unknown Active Medications Generic Name Dose Route Start Last Admin Trade Name Freq PRN Reason Stop Dose Admin Al Hydrox/Mg Hydrox/Simethicone 30 ml 02/25/25 14:54 03/10/25 18:41 Aluminum/Magnesium Susp 30 Ml Udc PO 03/27/25 14:53 30 ml Q6H PRN Administration Dyspepsia Amlodipine Besylate 5 mg 02/25/25 21:00 03/25/25 20:51 Amlodipine Besylate 5 Mg Tab PO 03/27/25 20:59 5 mg BID PATRICK Administration Ascorbic Acid 500 mg 02/26/25 09:00 03/25/25 08:53 Ascorbic Acid 500 Mg Tab PO 03/28/25 08:59 500 mg DAILY PATRICK Administration Clotrimazole 1 appln 03/12/25 21:00 03/26/25 08:33 Clotrimazole 1% Cr 15 Gm Tube EXT 04/11/25 20:59 1 appln BID PATRICK Administration Famotidine 20 mg 02/25/25 14:54 03/23/25 16:36 Famotidine 20 Mg Tab PO 03/27/25 14:53 20 mg Q12H PRN Administration Dyspepsia Fluconazole 600 mg 03/21/25 15:50 03/25/25 08:59 Fluconazole 100 Mg Tab PO 03/31/25 15:49 600 mg QAM PATRICK Administration Folic Acid 1 mg 03/21/25 09:00 03/25/25 08:53 Folic Acid 1 Mg Tab PO 04/20/25 08:59 1 mg QAM PATRICK Administration Protocol Furosemide 30 mg 03/25/25 10:00 03/26/25 01:34 Furosemide Inj 20 Mg/2 Ml Vial IV 04/24/25 09:59 30 mg Q8H PATRICK Administration Heparin Sodium (Beef Lung) 5 ml 03/24/25 11:03 03/25/25 08:32 Heparin 10 Unit/Ml 5 Ml Flush FLUSH 04/23/25 11:02 10 ml PRN PRN Administration Flush Hydrocortisone 1 appln 03/22/25 15:23 03/23/25 08:21 Hydrocortisone Hc 2.5% Crm 30gm Tube EXT 04/21/25 15:22 1 appln BID PRN Administration Hemorrhoids Hydromorphone HCl 1 mg 03/16/25 15:45 03/26/25 01:34 Hydromorphone Hcl 2 Mg Tab PO 03/30/25 15:44 1 mg Q4H PRN Administration Pain Heparin Sodium/Dextrose 25,000 units in 500 mls @ 0 mls/hr 03/19/25 13:30 03/25/25 23:59 Heparin 18492 Unit/500 Ml D5w IV 04/18/25 13:29 0 units/hr .Q0M PATRICK 0 mls/hr Titration Protocol 0 UNITS/HR Ceftriaxone Sodium 2,000 mg in 50 mls @ 100 mls/hr 03/22/25 09:00 03/26/25 10:58 Rocephin IV 04/01/25 08:59 Infused DAILY PATRICK Infusion Acetaminophen 1,000 mg in 100 mls @ 400 mls/hr 03/22/25 16:00 03/26/25 10:57 Ofirmev IV 03/28/25 15:59 Infused Q8H PATRICK Infusion Lactobacillus Acidophilus 1,250 mg 03/14/25 09:45 03/25/25 08:53 Advanced Probiotic 625 Mg Capsule PO 04/13/25 09:44 1,250 mg DAILY PATRICK Administration Lidocaine 1 patch 03/03/25 10:00 03/26/25 08:31 Lidocaine 5% 1 Patch TD 04/02/25 09:59 1 patch QAM PATRICK Administration Linezolid 600 mg 03/21/25 21:00 03/25/25 20:51 Linezolid 600 Mg Tab PO 03/31/25 20:59 600 mg BID PATRICK Administration Losartan Potassium 25 mg 03/17/25 04:50 03/25/25 08:53 Losartan Potassium 25 Mg Tab PO 04/16/25 04:49 25 mg QAM PATRICK Administration Magnesium Chloride 128 mg 03/24/25 21:00 03/25/25 20:50 Magnesium Chloride W/Calcium 64mg Delayed Rel Tab PO 04/23/25 20:59 128 mg TID PATRICK Administration Magnesium Hydroxide 30 ml 02/25/25 14:54 03/08/25 21:05 Magnesium Hydroxide Susp 30 Ml Udc PO 03/27/25 14:53 30 ml Q24H PRN Administration Constipation Melatonin 6 mg 03/17/25 02:21 03/23/25 20:06 Melatonin 3 Mg Tab PO 04/15/25 15:48 6 mg HS PRN Administration Sleep Metoprolol Succinate 25 mg 03/22/25 21:00 03/25/25 20:52 Metoprolol Succ 25mg Ext Rel Tab PO 04/21/25 20:59 25 mg BID PATRICK Administration Miscellaneous 1 each 03/03/25 21:00 03/25/25 20:50 Remove Lidoderm Patch N/A 04/02/25 20:59 1 each DAILY@2100 PATRICK Administration Multivitamins 1 tab 02/26/25 09:00 03/25/25 08:53 Multivitamin Tab PO 03/28/25 08:59 1 tab DAILY PATRICK Administration Ondansetron HCl 4 mg 02/25/25 14:54 03/21/25 08:50 Ondansetron 4 Mg Od Tab PO 03/27/25 14:53 4 mg Q6H PRN Administration Nausea Pantoprazole Sodium 40 mg 02/28/25 10:30 03/25/25 10:33 Pantoprazole 40 Mg Tab PO 03/30/25 10:29 40 mg DAILYBL PATRICK Administration Polyethylene Glycol 17 gm 03/10/25 09:00 03/25/25 09:01 Polyethylene (Miralax) 17 Gm Pack PO 04/09/25 08:59 Not Given DAILY PATRICK Senna/Docusate Sodium 2 tab 02/25/25 21:00 03/25/25 20:51 Docusate Sodium/Senna 50/8.6mg Tab PO 03/27/25 20:59 Not Given HS PATRICK Thiamine HCl 200 mg 03/22/25 09:00 03/25/25 08:53 Thiamine Hcl 100 Mg Tab PO 04/16/25 15:44 200 mg TODAY@0900 PATRICK Administration Urea 15 gm 03/25/25 10:00 03/25/25 20:49 Urea (Urea-Na) 15 Gm Pack PO 04/24/25 09:59 15 gm BID PATRICK Administration Vitamin D 25 mcg 02/26/25 09:00 03/25/25 08:53 Cholecalciferol 25 Mcg (1000 Units) Tab PO 03/28/25 08:59 25 mcg DAILY PATRICK Administration NPO Date Last Intake of Fluids: 03/25/25 Time Last Intake of Fluids: 23:00 Last Intake of Fluids Comment: Sip with med on unit Date Last Intake of Solids: 03/24/25 Time Last Intake of Solids: 23:00 Past Medical History Medical History History of UTI Rheumatoid arthritis Follows with Dr Ho/RAMANA Sheffield History of DVT (deep vein thrombosis) (2019) BL AQUILINO, was on AC x4 months (then discontinued) No issues since Hypertension Past Surgical History Surgical History History of colonoscopy History of neuroma removal- right foot History of wisdom tooth extraction History of bunionectomy of both great toes History of tonsillectomy History of cataract surgery R/L History of cardiac cath (~2019) no stents Social History Smoking Status: Never smoker Do You Dip or Chew Tobacco: No Hx Alcohol Use: Yes alcohol intake frequency: holidays/special occasions only Hx Substance Use: No substance use type: does not use Physical Exam Vital Signs Last Vital Signs Temp 99.1 F 03/26/25 09:58 Pulse 109 H 03/26/25 09:58 Resp 20 03/26/25 09:58 BP 120/71 03/26/25 09:58 Pulse Ox 93 03/26/25 09:58 O2 Del Method Room Air 03/26/25 09:58 O2 Flow Rate 1 03/24/25 19:30 FiO2 2 02/25/25 19:10 Testing Laboratory Results 03/26/25 05:27 03/26/25 10:28 PT 11.9 Seconds (9.0-12.0) 03/25/25 03:32 INR 1.1 (0.9-1.1) 03/25/25 03:32 APTT 21 Seconds (21-31) 03/12/25 10:34 Hemoglobin A1c 6.3 % (4.5-5.6) H 03/06/25 05:24 Urine Color Dark Yellow 03/24/25 10:15 Urine Appearance Cloudy (Clear) A 03/24/25 10:15 Urine pH 5.0 (4.5-7.5) 03/24/25 10:15 Ur Specific Reading 1.037 (1.000-1.030) H 03/24/25 10:15 Urine Protein 1+ (Negative) H 03/24/25 10:15 Urine Glucose (UA) Negative (Negative) 03/24/25 10:15 Urine Ketones Trace (Negative) H 03/24/25 10:15 Urine Nitrite Negative (Negative) 03/24/25 10:15 Ur Leukocyte Esterase Trace (Negative) H 03/24/25 10:15 Urine WBC (Auto) 21-50 /hpf (0-5) H 03/24/25 10:15 Urine RBC (Auto) 0-2 /hpf (0-2) 03/24/25 10:15 U Hyaline Cast (Auto) 0-2 /lpf (0-2) 03/24/25 10:15 U Epithel Cells (Auto) 0-2 /hpf (0-2) 03/24/25 10:15 Urine Bacteria (Auto) None Seen (None Seen) 03/24/25 10:15 Blood Type O Positive 03/19/25 22:42 Antibody Screen NEGATIVE 03/19/25 22:42 03/18/25 15:20 Gram Stain - Final Back,Lower Aerobic and Anaerobic Culture - Final Enterococcus faecium Terrie albicans 03/17/25 Unknown Gram Stain - Final Back,Lower Aerobic and Anaerobic Culture - Final Terrie albicans/dubliniensis Enterococcus faecium VRE 03/16/25 09:08 Aerobic Blood Culture - Final Blood No growth in Aerobic bottle after 5 days. Anaerobic Blood Culture - Final No growth in Anaerobic bottle after 5 days. 03/16/25 09:10 Aerobic Blood Culture - Final Blood No growth in Aerobic bottle after 5 days. Anaerobic Blood Culture - Final No growth in Anaerobic bottle after 5 days. 03/08/25 10:33 Aerobic Blood Culture - Final Blood No growth in Aerobic bottle after 5 days. Anaerobic Blood Culture - Final No growth in Anaerobic bottle after 5 days. 03/08/25 10:28 Aerobic Blood Culture - Final Blood No growth in Aerobic bottle after 5 days. Anaerobic Blood Culture - Final No growth in Anaerobic bottle after 5 days. 03/07/25 Unknown Gram Stain - Final Back Aerobic and Anaerobic Culture - Final Escherichia coli Morganella morganii Staphylococcus epidermidis Corynebacterium tuberculostear 03/07/25 Unknown Gram Stain - Final Back Aerobic and Anaerobic Culture - Final Escherichia coli Morganella morganii Staphylococcus epidermidis 03/26/25 10:26 POC Glucose 95 Electrocardiogram Date: 02/27/25 Sinus tachycardia with occasional Premature ventricular complexes Cannot rule out Anterior infarct , age undetermined Abnormal ECG When compared with ECG of 11-Feb-2025 11:55, Minimal criteria for Anterior infarct are now Present Confirmed by Daniel Quintanilla ([id number]) on 03/01/2025 11:08:33 PM Chest X-Ray Date: 02/11/25 Findings: + NAD Other Testing C-spine xray Date: 02/11/25 FINDINGS: There is moderate lower cervical degenerative disc disease. There is grade 1 anterolisthesis of C3 on 4 and C4 on 5 on the neutral view, which reduces with extension at C3-4 and remains stable at C4-5. No fracture seen. IMPRESSION: Translational motion at C3-4.
[2025-03-26] MEDS ORDERED: ONDANSETRON INJ 2 MG/ML 2 ML VIAL IV PRN (11:09)
[2025-03-26] MEDS ORDERED: ATROPINE SULFATE 0.1 MG/ML 10ML SYR IV PRN (11:09)
--- NOTE | 2025-03-26 11:17 | Operative Report ---
Post Operative Report Pre & Post Diagnosis Operation Date: 03/26/25 10:45 Preop diagnosis Lumbar epidural abscess Postop diagnosis Same I identified the patient and participated in the time-out.: Yes Procedure Operation Date: 03/26/25 10:45 Irrigation and debridement of lumbar spine Surgeon Adriel Nova DO [employer] Coni Hernandez Estimated Blood Loss 50 Findings Consistent with Post-Op Diagnosis The epidural space today was the healthiest in her course of irrigation debridements. Cultures were obtained. Specimens Culture of epidural space Indications This is a 69-year-old female who presents with continued postop temperatures and drainage output after her last I&D. Subsequently she is here for repeat irrigation debridement. Description of Procedure Patient was met with identified informed consent obtained. Patient was then taken to the operative suite underwent intubation placed in a prone position on the Dustin table top of the Waqas frame. All bony prominences well-padded eyes inspected to ensure no external precipice upon the. This point the lumbar spine was prepped and draped in normal sterile fashion. Sharp dissection was performed to the fascial layer. Serous fluid was noted but no gross purulence. The fascia was then opened to the epidural space. Again's modest amounts of serous fluid was noted but no gross purulence or necrotic tissue. Several liters of antibiotic solution were then irrigated throughout the incision. I then placed approximately 10 cc of Stimulan beads impregnated with gentamicin and vancomycin throughout the incision. An 18 round drain was inserted. The fascia was closed with subcutaneous Vicryl and Prolene for final skin closure. A buck dressing was placed. Patient awakened and taken to PACU in stable condition. Please note Coni Hernandez was present at the entire procedure and found the patient positioning complex portion of the surgery and final skin closure. I attest to the content of the Intraoperative Record and any orders documented therein. Any exceptions are noted below.
[2025-03-26] MEDS: GENTAMICIN SULFATE 40 MG/ML 2 ML VIAL ONE (11:20)
[2025-03-26] MEDS: ceFAZolin 330 MG/ML 1 GM VIAL ONE (11:21)
[2025-03-26] MEDS: VANCOMYCIN HCL 1000MG/20ML VIAL ONE (11:21)
[2025-03-26] MEDS: BUPIVACAINE/EPINEPHRINE 0.25% 1:200,000 30 ML VIAL ONE (11:22)
[2025-03-26] MEDS: SODIUM CHLORIDE 0.9% 1,000 ML IV SCH (14:28)
--- NOTE | 2025-03-26 14:39 | Anesthesiology Progress Note ---
Date of Service March 26, 2025 Anesthesia Post Procedure Vital Signs Vital Signs: Temp Pulse Pulse Pulse Resp BP BP 03/26/25 14:03 96 H 16 03/26/25 14:02 132/87 03/26/25 13:33 95 H 19 03/26/25 13:00 95 H 15 120/72 03/26/25 12:55 97.3 F L 95 H 17 99/55 L 03/26/25 12:45 90 18 130/61 03/26/25 12:35 84 14 159/79 H 03/26/25 12:25 91 H 14 130/73 03/26/25 12:15 93 H 16 127/65 03/26/25 12:05 94 H 15 124/75 03/26/25 11:55 98 H 18 101/53 L 03/26/25 11:46 98.1 F 101 H 13 126/77 03/26/25 11:46 84 03/26/25 11:12 03/26/25 09:58 99.1 F 109 H 20 120/71 03/26/25 09:39 108 H 20 03/26/25 08:18 100.2 F H 106 H 16 145/78 H 03/26/25 02:50 98.8 F 92 H 20 143/79 H 03/26/25 00:37 99.7 F H 112 H 20 03/25/25 23:31 101.8 F H 118 H 18 190/67 H 03/25/25 22:54 109 H 03/25/25 20:00 03/25/25 19:12 98.4 F 95 H 18 136/74 03/25/25 18:11 98.4 F 03/25/25 17:45 105 H 03/25/25 14:59 101.1 F H 110 H 20 144/85 H Pulse Ox O2 Del Method O2 Flow Rate 03/26/25 14:03 03/26/25 14:02 03/26/25 13:33 98 03/26/25 13:00 100 Nasal Cannula 2 03/26/25 12:55 100 Nasal Cannula 2 03/26/25 12:45 99 Nasal Cannula 2 03/26/25 12:35 97 Nasal Cannula 2 03/26/25 12:25 100 Nasal Cannula 4 03/26/25 12:15 95 Nasal Cannula 4 03/26/25 12:05 98 Oxymask 4 03/26/25 11:55 95 Oxymask 8 03/26/25 11:46 97 Oxymask 8 03/26/25 11:46 03/26/25 11:12 Room Air 03/26/25 09:58 93 Room Air 03/26/25 09:39 03/26/25 08:18 94 Room Air 03/26/25 02:50 91 Room Air 03/26/25 00:37 03/25/25 23:31 93 Room Air 03/25/25 22:54 03/25/25 20:00 Room Air 03/25/25 19:12 92 Room Air 03/25/25 18:11 03/25/25 17:45 03/25/25 14:59 95 Room Air Pain Intensity Right Leg: Pain Intensity: 9 Back: Pain Intensity: 2 Bilateral Leg: Pain Intensity: 8 Left Hip: Pain Intensity: 10 Left Leg: Pain Intensity: 5 Bilateral Lower Back: Pain Intensity: 10 Transfer of Care Handoff Completed per policy Notes Mental Status: alert / awake / arousable and participated in evaluation Patient Amnestic to Procedure: Yes Nausea / Vomiting: adequately controlled Pain: adequately controlled Airway Patency, RR, SpO2: stable & adequate BP & HR: stable & adequate Hydration State: stable & adequate Anesthetic Complications: no major complications apparent and Pt Satisfied with anesthetic care
[2025-03-26] MEDS: POTASSIUM CHLORIDE CRTAB 20 MEQ TABCR PO SCH (14:58)
[2025-03-26 23:24] LABS: Anion Gap 9.0 (3-11); Blood Urea Nitrogen 13.0 mg/dl (6-23); Calcium 8.0 mg/dl (8.6-10.3); Carbon Dioxide 27.0 mmol/L (21-32); Chloride 92.0 mmol/L (98-107); Creatinine Clr Calc Pharmacy 67.7 ml/min; Glucose 93.0 mg/dl (70-99(Fasting)); Potassium 4.1 mmol/L (3.5-5.1); Sodium 128.0 mmol/L (136-145)
[2025-03-27 06:39] LABS: Hematocrit (blood only) 23.2 % (37.0-47.0); Hemoglobin 7.4 g/dl (12.0-16.0); Mean Corpuscular Hemoglobin 25.9 pg (25.0-34.0); Mean Corpuscular Volume 81.1 fL (80.0-100.0); Platelet Count 526 K/uL (130-400); RDW Standard Deviation 49.1 fL (36.4-46.3); Red Blood Count 2.86 M/uL (4.20-5.40); White Blood Count 13.01 K/ul (4.8-10.8)
[2025-03-27 06:56] LABS: Magnesium 1.4 mg/dl (1.7-2.4)
[2025-03-27 07:24] LABS: INR 1.1 (0.9-1.1); Prothrombin Time 12.0 Seconds (9.0-12.0)
--- NOTE | 2025-03-27 09:38 | Nephrology Progress Note ---
Date of Service March 27, 2025 Assessment & Plan Admission and Anticipated Discharge Date Admission Date: February 25, 2025 Subjective Assessment & Plan (1) Acute on Chronic hyponatremia: Plan: present prior to admission and mild. likely multifactorial . pre-existing mild hyponatremia in pt on hctz na has not improved--if anything has got worse in last 4 days. current sodium 126. na did not drop further. But marked increase in urine so na may rise will continue same management today. Will manage it as SIADH FFR 1500 ml--not even drinking that much. urea 15 gm bid. Continue lasix 30 iv q8h for free water diuresis. na has gone up for the first time in more than a week now. 126--128 now. BMP daily. Current k is 4.1 now. Continue kcl 30 tid. Mag is low today. Add Iv mag 2 gm iv x 1 now. continue oral mag Subjective Na slightly higher. had Spinal I and D and washout for Abscess. patient is not eating much and as per the nursing and her she is eating no more than 25% of her meal Review of Systems Review of Systems: All systems reviewed & are unremarkable except as noted in Subjective Physical Exam Constitutional: well developed, + obese, + altered mental status (Question due to fatigue?), + physical limitations (limited ROM limbs) and + frail appearing; no acute distress Eyes: EOM intact bilaterally ENMT: Ears: no external ear abnormality Nose: no external nose abnormality Mouth: + dry oral mucous membranes Neck: no nuchal rigidity Respiratory: normal respiratory effort Auscultation: + diminished lung sounds Cardiovascular: Rate/Rhythm: regular rhythm and + tachycardic (in 100s) Extremities: no edema (including none peripheral) Gastrointestinal (Abdomen): Inspection/Auscultation: normal bowel sounds and + abdominal surgical drain present Percussion/Palpation: abdomen soft; abdomen nontender Skin: no rashes, warm and dry Results & Data Vital Signs (Past 12 Hours) Vital Signs Temp Pulse Pulse Resp BP Pulse Ox O2 Del Method 03/27/25 07:34 37.9 C H 109 H 18 168/90 H 91 Room Air 03/27/25 02:53 36.8 C 93 H 16 118/73 93 Room Air 03/26/25 23:02 37.2 C 97 H 18 118/66 93 Room Air 03/26/25 21:42 91 H
[2025-03-27] MEDS: MAGNESIUM SULFATE / D5W 1 GM/100 ML BAG IV SCH ×2 (09:49→10:41)
[2025-03-27] MEDS: SODIUM CHLORIDE 0.9% 500 ML IV ONE ×2 (11:58→15:49)
--- NOTE | 2025-03-27 12:31 | Hospitalist Progress Note ---
Date of Service March 27, 2025 Assessment & Plan (1) Acute blood loss anemia: (2) Other spondylosis with radiculopathy, lumbar region: (3) Tachycardia: (4) Leukocytosis: (5) Hyponatremia: (6) Hypertension: (7) Hyperlipidemia: (8) Rheumatoid arthritis: Plan Ms Kaur is a 69 year old female with PMH significant for hypertension, hyperlipidemia, rheumatoid arthritis, palpitations, history of bilateral pulmonary emboli, and lumbar spondylosis with radiculopathy who underwent L1-L5 decompression and fusion on 02/25/[address] Nova. We have been consulted for post operative medical management. Course complicated by spinal epidural abscess s/p most recent ID on 03/26. Awaiting stabilization of sodium, as well as monitoring post op labs for any further anemia prior to transitioning to po anticoagulation #Post-op spinal epidural abscess s/p washout #Spondylosis with radiculopathy, lumbar region -02/25 L1-L5 decompression and fusion by Dr. Nova complicated by fluid collection, fall with end plate fractures -03/04 Post-op lumbar Spine MRI due to ongoing BLE weakness and pain revealed 15x5.1x3.1 cm fluid collection R aspect of subcu fat extending from level L1 vertebra down to level opposite L5 vertebra -03/05 fall overnight, CT lumbar spine revealed end plate fracture L4 and pedicle fx of L5 on the right, prompting revision surgery on 03/07 -03/07 S/p removal of posterior segmental instrumentation L2 L4-L5, revision decompression with bilateral foraminotomies L4-L5, kyphoplasty L2 L4 and L5 vertebral bodies, revision fusion L4-L5, L5-S1 -03/07 Epidural space and lumbar fascia OR cultures growing E coli, Morganella, corynebacterium, and staph epidermidis -03/18 s/p I&D w/ Dr. Nova - culture grew Enterococcus faecium VRE and velia albicans -03/26 s/ I&D w/ Dr. Nova, serous fluid noted but no gross purulence per r eview of op report Gram stain from 1no growth. Cultureno growth till date Per prior hospitalist: "03/21- case discussed with ID once more today given sensitivities and BRENDAN levels. Per Dr. Sharp: "...Since the VRE has high BRENDAN >4 for daptomycin, I would recommend starting on oral linezolid 600 mg twice daily. Please continue on IV ceftriaxone and reduce the dose to 2 g once daily. Also, continue on oral fluconazole and increase the dose to 600 mg once daily. Anticipated end date for IV ceftriaxone will be April 28, 2025. For both linezolid and fluconazole, she will likely require to be on them for life if tolerated. Please make sure to send for weekly CBC and CMP for the next 8 weeks after discharge. I would recommend that the patient got the labs done at [facility] so that I can follow up on them closely..." PT/OT as tolerated #Acute DVT/ Pulmonary Emboli #Sinus Tachycardia Pt with hypoxia and tachycardia on 03/12, requiring 2-3L of oxygen, CTA chest obtained which noted pulmonary emboli bilaterally throughout the lungs EKG noting sinus tachycardia Echo ordered to confirm no heart strain 03/16 received 1 unit of pRBC and Hgb stable, FOBT negative Started on Toprol 25mg BID, continue Started on heparin on 03/27/2025; low-dose without bolus after discussion with orthospine #Acute blood loss anemia 10/28 surgery as above, s/p transfusion on 03/16 FOBT checked and negative, stool seen - light brown Follow post op H&H, transfuse < 7.0 #Acute on Chronic Hyponatremia, likely siadh Na 130-132, down to 126 Nephrology consulted, appreciate recs; reviewed: continue lasix q 8 h, kcl replacement qid, NS 50cc/hr for salt/volume, FR 1.5L, urea bid CTM #Hypomagnesemia Repleting orally only per Nephrology #Pre-Diabetes Steroid induced hyperglycemia -> resolved A1C 6.3 ctm on bmp #Hypertension Continue home amlodipine, spironolactone Hold HCTZ for low sodium #Rheumatoid arthritis Hold leflunomide. To be restarted after antibiotics are completed. DVT prophylaxis heparin Full code Discussed with patient's at bedside; answer questions/queries Time spent evaluating patient, direct bedside care, chart review, placing orders, interpretation of diagnostic studies, discussion with consultants, patient, and family members, as well as other required patient management activities is 50 minutes Please note the above document was generated using voice recognition software. It may contain grammatical, syntax or spelling errors. Any formal questions or concerns about the content, text or information contained within the body of this dictation should be directly addressed to the provider for clarification Admission and Anticipated Discharge Date Admission Date: February 25, 2025 Subjective Patient seen and examined at bedside. She is sitting up on the chair at the side of the bed; reports being tired and fatigued. She has low appetite as well. Review of Systems Review of Systems: All systems reviewed & are unremarkable except as noted in Subjective Physical Exam Physical Exam: Constitutional: Awake, oriented to time place and person. Appears tired/pale. Respiratory: Bilateral vesicular breath sound. Cardiovascular: RRR, no murmur, no edema Vessels: no JVD or carotid bruit Chest: normal inspection of chest Abdomen: normal bowel sounds, soft, nontender, no hepatosplenomegaly Neurologic: PERRL, EOMI, accommodation nl, no face palsy, no dysarthria CN's II- XI intact bilaterally and moves all extremities Results & Data Results & Data Vital Signs (Past 12 Hours) Vital Signs Temp Pulse Resp BP Pulse Ox O2 Del Method 03/27/25 12:18 93 H 132/70 03/27/25 12:08 107/68 03/27/25 11:47 100/60 03/27/25 10:59 36.5 C 98 H 18 96/61 L 91 Room Air 03/27/25 10:46 Room Air 03/27/25 07:34 37.9 C H 109 H 18 168/90 H 91 Room Air 03/27/25 02:53 36.8 C 93 H 16 118/73 93 Room Air
--- NOTE | 2025-03-27 13:33 | Orthopedic Progress Note ---
Date of Service March 27, 2025 Assessment & Plan (1) Spinal epidural abscess: Plan: At this time we will maintain the EMILY drain. Continue to encourage transfers to a chair. Admission and Anticipated Discharge Date Admission Date: February 25, 2025 Subjective Back pain controlled. Patient was in a chair earlier today. Physical Exam Physical Exam: EMILY drain is functioning. Neurologic Eric unchanged. Results & Data Vital Signs (Past 12 Hours) Vital Signs Temp Pulse Resp BP Pulse Ox O2 Del Method 03/27/25 12:18 93 H 132/70 03/27/25 12:08 107/68 03/27/25 11:47 100/60 03/27/25 10:59 36.5 C 98 H 18 96/61 L 91 Room Air 03/27/25 10:46 Room Air 03/27/25 07:34 37.9 C H 109 H 18 168/90 H 91 Room Air 03/27/25 02:53 36.8 C 93 H 16 118/73 93 Room Air Queries Orthopedic Spine Acute Posthemorrhagic Anemia: Yes Obesity: Yes 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
[2025-03-27] MEDS: HEPARIN 25000 UNIT/500 ML D5W 25,000 UNITS/500 ML BAG IV SCH (13:34)
[2025-03-27 13:45] LABS: Partial Thromboplastin Time 30 Seconds (21-31)
[2025-03-27] MEDS: Heparin IV Adult Wt-Based Low-Dose *NO* INITIAL Bolus Protocol IV STA (13:52)
--- NOTE | 2025-03-27 15:09 | Electrocardiogram Report ---
Test Reason : Blood Pressure : */* mmHG Vent. Rate : 94 BPM Atrial Rate : 94 BPM P-R Int : 150 ms QRS Dur : 76 ms QT Int : 362 ms P-R-T Axes : 6 -13 23 degrees QTcB Int : 452 ms Normal sinus rhythm Poor R wave progression, consider anterior MD vs. lead placement vs. LVH Abnormal ECG When compared with ECG of 20-Mar-2025 17:08, No significant change was found Confirmed by Evangelista Saha ([id number]) on 03/27/2025 3:09:15 PM Referred By: Adriel Nova Confirmed By: Evangelista Saha
--- NOTE | 2025-03-27 15:58 | CT Scan Report ---
CT SCAN OF THE BRAIN WITHOUT IV CONTRAST CLINICAL HISTORY: Increased lethargy. COMPARISON STUDY: Head CT March 17, 2025. MRI of the brain March 24, 2025. TECHNIQUE: Unenhanced axial CT scan of the brain was performed from the vertex to the skull base. A dose lowering technique was utilized adhering to the principles of ALARA. CT DOSE: 547.75 mGy.cm FINDINGS: Brain parenchyma: No acute intracranial hemorrhage, midline shift or mass effect is present. Avelar-whi te matter differentiation is preserved. There are no extra-axial fluid collections. There are no find ings to suggest acute dural sinus thrombosis or acute territorial infarct. White matter hypodensities are unchanged and suggest small vessel disease. Ventricles, sulci, cisterns: The ventricular system is stable. The basal cisterns are patent. Calvarium: Unremarkable. Sinuses and mastoids: The visualized paranasal sinuses are clear. The mastoid air cells are well pneu matized. Orbits: The bony orbits are grossly intact. IMPRESSION: No acute intracranial findings. No change in appearance of the brain. ACT 112: Negative or not required by law. Electronically signed by: John Sanchez M.D. 03/27/2025 3:57 PM
[2025-03-27 16:17] LABS: Anion Gap 9.0 (3-11); Blood Urea Nitrogen 14.0 mg/dl (6-23); Calcium 7.9 mg/dl (8.6-10.3); Carbon Dioxide 23.0 mmol/L (21-32); Chloride 96.0 mmol/L (98-107); Creatinine Clr Calc Pharmacy 58.3 ml/min; Glucose 113.0 mg/dl (70-99(Fasting)); Potassium 4.2 mmol/L (3.5-5.1); Sodium 128.0 mmol/L (136-145)
[2025-03-27 18:25] LABS: ANTI-Xa, UFH(UnfractionatedHep < 0.10 IU/ml (0.3-0.7)
[2025-03-27] MEDS: HEPARIN SOD (PORCINE) 1000 UNIT/ML IV ONE (19:16)
[2025-03-28 02:14] LABS: ANTI-Xa, UFH(UnfractionatedHep 0.39 IU/ml (0.3-0.7)
[2025-03-28 06:08] LABS: Anion Gap 8.0 (3-11); Blood Urea Nitrogen 29.0 mg/dl (6-23); Calcium 8.1 mg/dl (8.6-10.3); Carbon Dioxide 23.0 mmol/L (21-32); Chloride 98.0 mmol/L (98-107); Creatinine Clr Calc Pharmacy 50.8 ml/min; Glucose 81.0 mg/dl (70-99(Fasting)); Potassium 5.0 mmol/L (3.5-5.1); Sodium 129.0 mmol/L (136-145)
[2025-03-28 06:16] LABS: Hematocrit (blood only) 20.9 % (37.0-47.0); Hemoglobin 6.8 g/dl (12.0-16.0); Mean Corpuscular Hemoglobin 26.1 pg (25.0-34.0); Mean Corpuscular Volume 80.1 fL (80.0-100.0); Platelet Count 481 K/uL (130-400); RDW Standard Deviation 48.3 fL (36.4-46.3); Red Blood Count 2.61 M/uL (4.20-5.40); White Blood Count 11.36 K/ul (4.8-10.8)
[2025-03-28 06:18] LABS: ANTI-Xa, UFH(UnfractionatedHep 0.32 IU/ml (0.3-0.7)
[2025-03-28 06:23] LABS: Immature Granulocytes # (auto) 0.57 K/uL (0.01-0.20); Immature Granulocytes % (auto) 5.0 %; Polychromasia 1+
[2025-03-28 06:41] LABS: Hematocrit (blood only) 21.7 % (37.0-47.0); Hemoglobin 6.9 g/dl (12.0-16.0)
[2025-03-28] MEDS ORDERED: SODIUM CHLORIDE 0.9% 100 ML IV PRN (06:42)
[2025-03-28] MEDS ORDERED: ACETAMINOPHEN 325 MG TAB PO ONE (07:15)
--- NOTE | 2025-03-28 09:54 | Nephrology Progress Note ---
Date of Service March 28, 2025 Assessment & Plan Admission and Anticipated Discharge Date Admission Date: February 25, 2025 Subjective Assessment & Plan (1) Acute on Chronic hyponatremia: Plan: present prior to admission and mild. likely multifactorial . pre-existing mild hyponatremia in pt on hctz na has not improved--if anything has got worse in last 4 days. current sodium 126. na slowly going up now. now 129. marked increase in urine na may rise will continue same management today. Will manage it as SIADH FFR 1500 ml--not even drinking that much. urea 15 gm bid. na has gone up slightly 126--129 now. BMP daily. Current k is 5 so can hold kcl for now. also not much urine yesterday. Check mag daily--had iv mag 2 gm yesterday. hgb dropped a lot to 6.6. lasix held for low BP/Poor appetite--Ok for now. Subjective Na slightly higher. had Spinal I and D and washout for Abscess. patient is not eating much and as per the nursing and her she is eating no more than 25% of her meal Review of Systems Review of Systems: All systems reviewed & are unremarkable except as noted in Subjective Physical Exam Constitutional: well developed, + obese, + altered mental status (Question due to fatigue?), + physical limitations (limited ROM limbs) and + frail appearing; no acute distress Eyes: EOM intact bilaterally ENMT: Ears: no external ear abnormality Nose: no external nose abnormality Mouth: + dry oral mucous membranes Neck: no nuchal rigidity Respiratory: normal respiratory effort Auscultation: + diminished lung sounds Cardiovascular: Rate/Rhythm: regular rhythm and + tachycardic (in 100s) Extremities: no edema (including none peripheral) Gastrointestinal (Abdomen): Inspection/Auscultation: normal bowel sounds and + abdominal surgical drain present Percussion/Palpation: abdomen soft; abdomen nontender Skin: no rashes, warm and dry Results & Data Vital Signs (Past 12 Hours) Vital Signs Temp Pulse Pulse Resp BP BP Pulse Ox 03/28/25 09:36 36.5 C 87 20 137/74 94 03/28/25 09:16 90 20 121/72 94 03/28/25 07:11 36.7 C 94 H 18 148/71 H 92 03/28/25 02:57 36.6 C 90 20 112/67 92 03/27/25 22:54 36.8 C 85 20 118/76 90 03/27/25 21:57 93 H O2 Del Method 03/28/25 09:36 03/28/25 09:16 03/28/25 07:11 Room Air 03/28/25 02:57 Room Air 03/27/25 22:54 Room Air 03/27/25 21:57
--- NOTE | 2025-03-28 11:03 | Orthopedic Progress Note ---
Date of Service March 28, 2025 Assessment & Plan (1) Spinal epidural abscess: Plan: At this time we will continue to encourage patient to get to a chair. Will continue to initiate attempts at standing to stimulate her quadriceps. Will try to medically optimize her in the next several days for transfer to rehab. Admission and Anticipated Discharge Date Admission Date: February 25, 2025 Subjective Back pain controlled. Still describes hypersensitivity to lower extremities. Tolerated sitting in chair 2 hours yesterday. Physical Exam Physical Exam: Patient currently in bed. Neurologic strength testing is unchanged. She is hyperesthetic to even modest touch. This is inconsistent. Results & Data Vital Signs (Past 12 Hours) Vital Signs Temp Pulse Pulse Resp BP BP Pulse Ox 03/28/25 10:21 36.6 C 84 20 106/65 95 03/28/25 09:51 36.5 C 87 20 131/78 94 03/28/25 09:36 36.5 C 87 20 137/74 94 03/28/25 09:16 90 20 121/72 94 03/28/25 07:11 36.7 C 94 H 18 148/71 H 92 03/28/25 02:57 36.6 C 90 20 112/67 92 O2 Del Method 03/28/25 10:21 03/28/25 09:51 03/28/25 09:36 03/28/25 09:16 03/28/25 07:11 Room Air 03/28/25 02:57 Room Air Queries Orthopedic Spine Acute Posthemorrhagic Anemia: Yes Obesity: Yes 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
--- NOTE | 2025-03-28 11:51 | Hospitalist Progress Note ---
Date of Service March 28, 2025 Assessment & Plan (1) Acute blood loss anemia: (2) Other spondylosis with radiculopathy, lumbar region: (3) Tachycardia: (4) Leukocytosis: (5) Hyponatremia: (6) Hypertension: (7) Hyperlipidemia: (8) Rheumatoid arthritis: Plan Ms Kaur is a 69 year old female with PMH significant for hypertension, hyperlipidemia, rheumatoid arthritis, palpitations, history of bilateral pulmonary emboli, and lumbar spondylosis with radiculopathy who underwent L1-L5 decompression and fusion on 02/25/[address] Nova. We have been consulted for post operative medical management. Course complicated by spinal epidural abscess s/p most recent ID on 03/26. Awaiting stabilization of sodium, as well as monitoring post op labs for any further anemia prior to transitioning to po anticoagulation #Post-op spinal epidural abscess s/p washout #Spondylosis with radiculopathy, lumbar region -02/25 L1-L5 decompression and fusion by Dr. Nova complicated by fluid collection, fall with end plate fractures -03/04 Post-op lumbar Spine MRI due to ongoing BLE weakness and pain revealed 15x5.1x3.1 cm fluid collection R aspect of subcu fat extending from level L1 vertebra down to level opposite L5 vertebra -03/05 fall overnight, CT lumbar spine revealed end plate fracture L4 and pedicle fx of L5 on the right, prompting revision surgery on 03/07 -03/07 S/p removal of posterior segmental instrumentation L2 L4-L5, revision decompression with bilateral foraminotomies L4-L5, kyphoplasty L2 L4 and L5 vertebral bodies, revision fusion L4-L5, L5-S1 -03/07 Epidural space and lumbar fascia OR cultures growing E coli, Morganella, corynebacterium, and staph epidermidis -03/18 s/p I&D w/ Dr. Nova - culture grew Enterococcus faecium VRE and velia albicans -03/26 s/ I&D w/ Dr. Nova, serous fluid noted but no gross purulence per r eview of op report Gram stain from 1no growth. Cultureno growth till date Per prior hospitalist: "03/21- case discussed with ID once more today given sensitivities and BRENDAN levels. Per Dr. Sharp: "...Since the VRE has high BRENDAN >4 for daptomycin, I would recommend starting on oral linezolid 600 mg twice daily. Please continue on IV ceftriaxone and reduce the dose to 2 g once daily. Also, continue on oral fluconazole and increase the dose to 600 mg once daily. Anticipated end date for IV ceftriaxone will be April 28, 2025. For both linezolid and fluconazole, she will likely require to be on them for life if tolerated. Please make sure to send for weekly CBC and CMP for the next 8 weeks after discharge. I would recommend that the patient got the labs done at [facility] so that I can follow up on them closely..." PT/OT as tolerated #Acute DVT/ Pulmonary Emboli #Sinus Tachycardia Pt with hypoxia and tachycardia on 03/12, requiring 2-3L of oxygen, CTA chest obtained which noted pulmonary emboli bilaterally throughout the lungs EKG noting sinus tachycardia Echo ordered to confirm no heart strain 03/16 received 1 unit of pRBC and Hgb stable, FOBT negative Started on Toprol 25mg BID, continue Started on heparin on 03/27/2025; low-dose without bolus after discussion with orthospine #Acute blood loss anemia / surgery as above, s/p transfusion on 03/16 Hemoglobin down trended to 6.8 on 03/28; another unit of packed RBC ordered. #Acute on Chronic Hyponatremia, likely siadh Na 130-132, down to 126 Nephrology consulted, On oral urea tablets. Was given Lasix initially which is stopped. Also on fluid restriction of 1.5 L CTM #Hypomagnesemia- repleted #Pre-Diabetes Steroid induced hyperglycemia -> resolved A1C 6.3 ctm on bmp #Hypertension- antihypertensive on hold #Rheumatoid arthritis Hold leflunomide. To be restarted after antibiotics are completed. DVT prophylaxis heparin Full code Discussed with patient's at bedside; answer questions/queries Time spent evaluating patient, direct bedside care, chart review, placing orders, interpretation of diagnostic studies, discussion with consultants, patient, and family members, as well as other required patient management activities is 50 minutes Please note the above document was generated using voice recognition software. It may contain grammatical, syntax or spelling errors. Any formal questions or concerns about the content, text or information contained within the body of this dictation should be directly addressed to the provider for clarification Admission and Anticipated Discharge Date Admission Date: February 25, 2025 Subjective Patient seen and examined at bedside. She is lying in the bed comfortably; denies any pain or discomfort. She reports that she is feeling better compared to previous days. Vital signs are stable. She is receiving packed RBC infusion. Review of Systems Review of Systems: All systems reviewed & are unremarkable except as noted in Subjective Physical Exam Physical Exam: Constitutional: Awake, oriented to time place and person. Respiratory: Bilateral vesicular breath sound. Cardiovascular: RRR, no murmur, no edema Vessels: no JVD or carotid bruit Chest: normal inspection of chest Abdomen: normal bowel sounds, soft, nontender, no hepatosplenomegaly Neurologic: PERRL, EOMI, accommodation nl, no face palsy, no dysarthria CN's II- XI intact bilaterally and moves all extremities Results & Data Results & Data Vital Signs (Past 12 Hours) Vital Signs Temp Pulse Pulse Resp BP BP Pulse Ox 03/28/25 11:25 36.6 C 85 18 131/80 95 03/28/25 10:21 36.6 C 84 20 106/65 95 03/28/25 09:51 36.5 C 87 20 131/78 94 03/28/25 09:36 36.5 C 87 20 137/74 94 03/28/25 09:16 90 20 121/72 94 03/28/25 07:11 36.7 C 94 H 18 148/71 H 92 03/28/25 02:57 36.6 C 90 20 112/67 92 O2 Del Method 03/28/25 11:25 03/28/25 10:21 03/28/25 09:51 03/28/25 09:36 03/28/25 09:16 03/28/25 07:11 Room Air 03/28/25 02:57 Room Air
[2025-03-28 14:28] LABS: Hematocrit (blood only) 29.8 % (37.0-47.0); Hemoglobin 9.7 g/dl (12.0-16.0); Mean Corpuscular Hemoglobin 26.6 pg (25.0-34.0); Mean Corpuscular Volume 81.9 fL (80.0-100.0); Platelet Count 535 K/uL (130-400); RDW Standard Deviation 48.3 fL (36.4-46.3); Red Blood Count 3.64 M/uL (4.20-5.40); White Blood Count 12.97 K/ul (4.8-10.8)
[2025-03-28 14:51] LABS: Immature Granulocytes # (auto) 0.74 K/uL (0.01-0.20); Immature Granulocytes % (auto) 5.7 %
[2025-03-29 07:09] LABS: Hematocrit (blood only) 28.0 % (37.0-47.0); Hemoglobin 9.5 g/dl (12.0-16.0); Mean Corpuscular Hemoglobin 27.3 pg (25.0-34.0); Mean Corpuscular Volume 80.5 fL (80.0-100.0); Platelet Count 516 K/uL (130-400); RDW Standard Deviation 48.1 fL (36.4-46.3); Red Blood Count 3.48 M/uL (4.20-5.40); White Blood Count 11.28 K/ul (4.8-10.8)
[2025-03-29 07:31] LABS: ANTI-Xa, UFH(UnfractionatedHep 0.26 IU/ml (0.3-0.7)
[2025-03-29 07:33] LABS: Anion Gap 12.0 (3-11); Blood Urea Nitrogen 23.0 mg/dl (6-23); Calcium 8.9 mg/dl (8.6-10.3); Carbon Dioxide 20.0 mmol/L (21-32); Chloride 97.0 mmol/L (98-107); Creatinine Clr Calc Pharmacy 61.2 ml/min; Glucose 80.0 mg/dl (70-99(Fasting)); INR 1.1 (0.9-1.1); Potassium 4.5 mmol/L (3.5-5.1); Prothrombin Time 11.6 Seconds (9.0-12.0); Sodium 129.0 mmol/L (136-145)
[2025-03-29 07:35] LABS: Immature Granulocytes # (auto) 0.93 K/uL (0.01-0.20); Immature Granulocytes % (auto) 8.2 %; Polychromasia 1+
--- NOTE | 2025-03-29 08:04 | Orthopedic Progress Note ---
Date of Service March 29, 2025 Assessment & Plan (1) Spinal epidural abscess: Plan: At this time we will continue to encourage bed to chair transfers. Stand as tolerated. Continue to stimulate the quadriceps. I will maintain the EMILY drain at this time. Cultures from her last I&D lumbar spine are now positive. She does have gentamicin beads in place. I will discontinue oxycodone. Admission and Anticipated Discharge Date Admission Date: February 25, 2025 Subjective Patient is very confused this morning. Seems she had oxycodone last evening. Physical Exam Physical Exam: On exam she is confused. She is neurologically intact Results & Data Vital Signs (Past 12 Hours) Vital Signs Temp Pulse Pulse Resp BP Pulse Ox O2 Del Method 03/29/25 02:46 37.5 C 100 H 16 129/83 95 Room Air 03/28/25 22:43 36.8 C 90 18 144/80 H 98 Room Air 03/28/25 21:46 90 03/28/25 20:30 Room Air 03/28/25 20:17 36.7 C 91 H 18 146/82 H 92 Room Air 03/28/25 20:10 36.7 C 91 H 18 146/82 H 92 Room Air Queries Orthopedic Spine Acute Posthemorrhagic Anemia: Yes Obesity: Yes 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
--- NOTE | 2025-03-29 11:13 | Nephrology Progress Note ---
Date of Service March 29, 2025 Assessment & Plan (1) Chronic hyponatremia: Plan: 1) Acute on Chronic hyponatremia: Plan: present prior to admission and mild. likely multifactorial . pre-existing mild hyponatremia in pt on hctz Na slowly going up now. now 129. will continue same management today. Manage it as SIADH FFR 1500 ml--not even drinking that much. urea 15 gm bid. BMP daily. Replace electrolytes as needed to keep K >4 and Mg >2. (2) Electrolyte abnormality: Admission and Anticipated Discharge Date Admission Date: February 25, 2025 Subjective More confused thsi am as per and staff Results & Data Vital Signs (Past 12 Hours) Vital Signs Temp Pulse Pulse Pulse Resp BP Pulse Ox 03/29/25 09:10 37.0 C 107 H 18 149/80 H 94 03/29/25 08:00 104 H 03/29/25 08:00 03/29/25 02:46 37.5 C 100 H 16 129/83 95 O2 Del Method 03/29/25 09:10 Room Air 03/29/25 08:00 03/29/25 08:00 Room Air 03/29/25 02:46 Room Air Laboratory Results 03/29/25 06:51 03/29/25 06:51
[2025-03-29] MEDS: ACETAMINOPHEN 1,000 MG/100 ML VIAL IV PRN (11:41)
--- NOTE | 2025-03-29 12:44 | Hospitalist Progress Note ---
Date of Service March 29, 2025 Assessment & Plan (1) Acute blood loss anemia: (2) Other spondylosis with radiculopathy, lumbar region: (3) Tachycardia: (4) Leukocytosis: (5) Hyponatremia: (6) Hypertension: (7) Hyperlipidemia: (8) Rheumatoid arthritis: Plan Ms Kaur is a 69 year old female with PMH significant for hypertension, hyperlipidemia, rheumatoid arthritis, palpitations, history of bilateral pulmonary emboli, and lumbar spondylosis with radiculopathy who underwent L1-L5 decompression and fusion on 02/25/[address] Nova. We have been consulted for post operative medical management. Course complicated by spinal epidural abscess s/p most recent ID on 03/26. #Post-op spinal epidural abscess s/p washout #Spondylosis with radiculopathy, lumbar region -02/25 L1-L5 decompression and fusion by Dr. Nova complicated by fluid collection, fall with end plate fractures -03/04 Post-op lumbar Spine MRI due to ongoing BLE weakness and pain revealed 15x5.1x3.1 cm fluid collection R aspect of subcu fat extending from level L1 vertebra down to level opposite L5 vertebra -03/05 CT lumbar spine revealed end plate fracture L4 and pedicle fx of L5 on the right, prompting revision surgery on 03/07 -03/07 S/p removal of posterior segmental instrumentation L2 L4-L5, revision decompression with bilateral foraminotomies L4-L5, kyphoplasty L2 L4 and L5 vertebral bodies, revision fusion L4-L5, L5-S1 -03/07 Epidural space and lumbar fascia OR cultures growing E coli, Morganella, corynebacterium, and staph epidermidis -03/18 s/p I&D w/ Dr. Nova - culture grew Enterococcus faecium VRE and velia albicans -03/26 s/ I&D w/ Dr. Nova, serous fluid noted but no gross purulence per review of op report - Culture from 03/26-E. Faecium Per prior hospitalist: "03/21- case discussed with ID once more today given sensitivities and BRENDAN levels. Per Dr. Sharp: "...Since the VRE has high BRENDAN >4 for daptomycin, I would recommend starting on oral linezolid 600 mg twice daily. Please continue on IV ceftriaxone and reduce the dose to 2 g once daily. Also, continue on oral fluconazole and increase the dose to 600 mg once daily. Anticipated end date for IV ceftriaxone will be April 28, 2025. For both linezolid and fluconazole, she will likely require to be on them for life if tolerated. Please make sure to send for weekly CBC and CMP for the next 8 weeks after discharge. I would recommend that the patient got the labs done at [facility] so that I can follow up on them closely..." PT/OT as tolerated #Acute DVT/ Pulmonary Emboli #Sinus Tachycardia Pt with hypoxia and tachycardia on 03/12, requiring 2-3L of oxygen, CTA chest obtained which noted pulmonary emboli bilaterally throughout the lungs EKG noting sinus tachycardia Echo ordered to confirm no heart strain 03/16 received 1 unit of pRBC and Hgb stable, FOBT negative Started on Toprol 25mg BID, continue Started on heparin on 03/27/2025; low-dose without bolus after discussion with orthospine #Acute blood loss anemia / surgery as above, s/p transfusion on 03/16 Hemoglobin down trended to 6.8 on 03/28; another unit of packed RBC ordered. Hb stablized #Acute on Chronic Hyponatremia, likely siadh Na 130-132, down to 126 Nephrology consulted, On oral urea tablets. Was given Lasix initially which is stopped. Also on fluid restriction of 1.5 L CTM #Hypomagnesemia- repleted #Pre-Diabetes Steroid induced hyperglycemia -> resolved A1C 6.3 ctm on bmp #Hypertension- antihypertensive on hold #Rheumatoid arthritis Hold leflunomide. To be restarted after antibiotics are completed. DVT prophylaxis heparin Full code I updated patient's regarding plan of care at bedside on 03/29/2025; answered his questions/queries. On his request, I discussed care with patient's hyun Kaur over the phone for over 25 minutes. Patient clinically not stable for transfer to rehab. Plan is to continue current treatment and monitor for decompensation. Time spent evaluating patient, direct bedside care, chart review, placing orders, interpretation of diagnostic studies, discussion with consultants, patient, and family members, as well as other required patient management activities is 90 minutes Please note the above document was generated using voice recognition software. It may contain grammatical, syntax or spelling errors. Any formal questions or concerns about the content, text or information contained within the body of this dictation should be directly addressed to the provider for clarification Admission and Anticipated Discharge Date Admission Date: February 25, 2025 Subjective Patient appears lethargic; awake and following voice. She is able to follow simple commands. No significant events overnight Review of Systems Review of Systems: Unobtainable due to cognitive status Physical Exam Physical Exam: Constitutional:Lethargic; awake eval of voice. Able to follow simple commands. Respiratory: Bilateral vesicular breath sound. Cardiovascular: RRR, no murmur, no edema Vessels: no JVD or carotid bruit Chest: normal inspection of chest Abdomen: normal bowel sounds, soft, nontender, no hepatosplenomegaly Neurologic: PERRL, EOMI, accommodation nl, no face palsy, no dysarthria CN's II- XI intact bilaterally and moves all extremities Results & Data Results & Data Vital Signs (Past 12 Hours) Vital Signs Temp Pulse Pulse Pulse Resp BP Pulse Ox 03/29/25 11:44 38.1 C H 103 H 17 153/87 H 96 03/29/25 09:10 37.0 C 107 H 18 149/80 H 94 03/29/25 08:00 104 H 03/29/25 08:00 03/29/25 02:46 37.5 C 100 H 16 129/83 95 O2 Del Method 03/29/25 11:44 Room Air 03/29/25 09:10 Room Air 03/29/25 08:00 03/29/25 08:00 Room Air 03/29/25 02:46 Room Air
--- NOTE | 2025-03-29 14:28 | CT Scan Report ---
HISTORY: Increased lethargy and confusion. TECHNIQUE: CT of the head without contrast. Images are presented in axial, sagittal, and coronal reformats. COMPARISON: Head CT dated 03/27/2025. FINDINGS: No evidence of intracranial hemorrhage, abnormal extra axial fluid collection, mass effect, or midline shift. Moderate chronic microvascular ischemic changes. Mild diffuse volume loss. Intracranial atherosclerotic vascular calcifications.Ventricular caliber is appropriate. Fourth ventricle is midline. Basal cisterns are patent.Avelar-white differentiation is maintained. Partially empty configuration of the sella. Globes and orbits are unremarkable.Soft tissues about the skull base and scalp are unremarkable.Paranasal sinuses and mastoid air cells are clear. No calvarial fracture. IMPRESSION: * No acute intracranial findings. If there is concern for acute infarct, brain MRI with diffusion weighted imaging should be considered for more sensitive evaluation. * Moderate chronic microvascular ischemic changes and mild diffuse volume loss. Electronically signed by Swapnil Morales 03-29-2025 2:28 PM
[2025-03-29 18:23] LABS: ANTI-Xa, UFH(UnfractionatedHep 0.26 IU/ml (0.3-0.7)
[2025-03-30 01:15] LABS: ANTI-Xa, UFH(UnfractionatedHep 0.32 IU/ml (0.3-0.7)
[2025-03-30 06:46] LABS: Hematocrit (blood only) 25.9 % (37.0-47.0); Hemoglobin 8.5 g/dl (12.0-16.0); Mean Corpuscular Hemoglobin 26.6 pg (25.0-34.0); Mean Corpuscular Volume 81.2 fL (80.0-100.0); Platelet Count 417 K/uL (130-400); RDW Standard Deviation 50.1 fL (36.4-46.3); Red Blood Count 3.19 M/uL (4.20-5.40); White Blood Count 9.93 K/ul (4.8-10.8)
[2025-03-30 07:03] LABS: ANTI-Xa, UFH(UnfractionatedHep 0.29 IU/ml (0.3-0.7)
[2025-03-30 07:15] LABS: Anion Gap 9.0 (3-11); Blood Urea Nitrogen 23.0 mg/dl (6-23); Calcium 8.4 mg/dl (8.6-10.3); Carbon Dioxide 22.0 mmol/L (21-32); Chloride 99.0 mmol/L (98-107); Creatinine Clr Calc Pharmacy 67.0 ml/min; Glucose 78.0 mg/dl (70-99(Fasting)); Potassium 4.2 mmol/L (3.5-5.1); Sodium 130.0 mmol/L (136-145)
[2025-03-30 08:20] LABS: Immature Granulocytes # (auto) 0.97 K/uL (0.01-0.20); Immature Granulocytes % (auto) 9.8 %; Polychromasia 1+
--- NOTE | 2025-03-30 10:23 | Orthopedic Progress Note ---
Date of Service March 30, 2025 Assessment & Plan (1) Spinal epidural abscess: Plan: At this time would like to continue to attempt standing on a consistent daily basis. We must stimulate her quadriceps and overall musculature. Ideally she would be transferred to a chair for several hours a day. Admission and Anticipated Discharge Date Admission Date: February 25, 2025 Subjective Patient is alert but somnolent this morning. states that she was up and alert earlier this morning. She has not been out of bed in several days. Physical Exam Physical Exam: On exam her EMILY drain is functioning appropriately. She is unchanged from her neurologic status. Results & Data Vital Signs (Past 12 Hours) Vital Signs Temp Pulse Pulse Resp BP Pulse Ox O2 Del Method 03/30/25 07:21 37.1 C 88 18 110/68 93 Room Air 03/30/25 07:00 102 H 03/30/25 04:12 37.2 C 114 H 18 165/93 H 95 Room Air 03/30/25 00:36 37.2 C 03/30/25 00:09 38.0 C H 107 H 18 160/99 H 97 Room Air Queries Orthopedic Spine Acute Posthemorrhagic Anemia: Yes Obesity: Yes 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
--- NOTE | 2025-03-30 11:01 | Hospitalist Progress Note ---
Date of Service March 30, 2025 Assessment & Plan (1) Acute blood loss anemia: (2) Other spondylosis with radiculopathy, lumbar region: (3) Tachycardia: (4) Leukocytosis: (5) Hyponatremia: (6) Hypertension: (7) Hyperlipidemia: (8) Rheumatoid arthritis: Plan Ms Kaur is a 69 year old female with PMH significant for hypertension, hyperlipidemia, rheumatoid arthritis, palpitations, history of bilateral pulmonary emboli, and lumbar spondylosis with radiculopathy who underwent L1-L5 decompression and fusion on 02/25/[address] Nova. We have been consulted for post operative medical management. Course complicated by spinal epidural abscess s/p most recent ID on 03/26. #Post-op spinal epidural abscess s/p washout #Spondylosis with radiculopathy, lumbar region -02/25 L1-L5 decompression and fusion by Dr. Nova complicated by fluid collection, fall with end plate fractures -03/04 Post-op lumbar Spine MRI due to ongoing BLE weakness and pain revealed 15x5.1x3.1 cm fluid collection R aspect of subcu fat extending from level L1 vertebra down to level opposite L5 vertebra -03/05 CT lumbar spine revealed end plate fracture L4 and pedicle fx of L5 on the right, prompting revision surgery on 03/07 -03/07 S/p removal of posterior segmental instrumentation L2 L4-L5, revision decompression with bilateral foraminotomies L4-L5, kyphoplasty L2 L4 and L5 vertebral bodies, revision fusion L4-L5, L5-S1 -03/07 Epidural space and lumbar fascia OR cultures growing E coli, Morganella, corynebacterium, and staph epidermidis -03/18 s/p I&D w/ Dr. Nova - culture grew Enterococcus faecium VRE and velia albicans -03/26 s/ I&D w/ Dr. Nova, serous fluid noted but no gross purulence per review of op report - Culture from 03/26-VRE Per prior hospitalist: "03/21- case discussed with ID once more today given sensitivities and BRENDAN levels. Per Dr. Sharp: "...Since the VRE has high BRENDAN >4 for daptomycin, I would recommend starting on oral linezolid 600 mg twice daily. Please continue on IV ceftriaxone and reduce the dose to 2 g once daily. Also, continue on oral fluconazole and increase the dose to 600 mg once daily. Anticipated end date for IV ceftriaxone will be April 28, 2025. For both linezolid and fluconazole, she will likely require to be on them for life if tolerated. Please make sure to send for weekly CBC and CMP for the next 8 weeks after discharge. I would recommend that the patient got the labs done at [facility] so that I can follow up on them closely..." PT/OT as tolerated Blood culture sent on 03/29/2025 as patient had low-grade fever; pending. Haywood catheter was changed on 03/29/2025. #Acute DVT/ Pulmonary Emboli #Sinus Tachycardia Pt with hypoxia and tachycardia on 03/12, requiring 2-3L of oxygen, CTA chest obtained which noted pulmonary emboli bilaterally throughout the lungs EKG noting sinus tachycardia Echo ordered to confirm no heart strain 03/16 received 1 unit of pRBC and Hgb stable, FOBT negative Started on Toprol 25mg BID, continue Started on heparin on 03/27/2025; low-dose without bolus after discussion with orthospine #Acute blood loss anemia 2/ surgery as above, s/p transfusion on 03/16 Hemoglobin down trended to 6.8 on 03/28; another unit of packed RBC ordered. Hb stabilized #Acute on Chronic Hyponatremia, likely siadh Na 130-132, down to 126 Nephrology consulted, On oral urea tablets. Was given Lasix initially which is stopped. Also on fluid restriction of 1.5 L CTM #Hypomagnesemia- repleted #Pre-Diabetes Steroid induced hyperglycemia -> resolved A1C 6.3 ctm on bmp #Hypertension- antihypertensive on hold #Rheumatoid arthritis Hold leflunomide. To be restarted after antibiotics are completed. DVT prophylaxis heparin Full code I updated patient's regarding plan of care at bedside on 03/30/2025; answered his questions/queries. On his request, I discussed care with patient's hyun Kaur over the phone for over 25 minutes on 03/30/2025. Patient clinically not stable for transfer to rehab. Plan is to continue current treatment and monitor for decompensation. Time spent evaluating patient, direct bedside care, chart review, placing orders, interpretation of diagnostic studies, discussion with consultants, patient, and family members, as well as other required patient management activities is 50 minutes Please note the above document was generated using voice recognition software. It may contain grammatical, syntax or spelling errors. Any formal questions or concerns about the content, text or information contained within the body of this dictation should be directly addressed to the provider for clarification Admission and Anticipated Discharge Date Admission Date: February 25, 2025 Subjective Patient's mentation is improved compared to previous day. She is more awake and interactive. She reports that she does not have any pain. She is spontaneously moving all extremities. Review of Systems Review of Systems: All systems reviewed & are unremarkable except as noted in Subjective Physical Exam Physical Exam: Constitutional:awake, alert, oriented X 3; not in any distress Respiratory: Bilateral vesicular breath sound. Cardiovascular: RRR, no murmur, no edema Vessels: no JVD or carotid bruit Chest: normal inspection of chest Abdomen: normal bowel sounds, soft, nontender, no hepatosplenomegaly Neurologic: PERRL, EOMI, accommodation nl, no face palsy, no dysarthria CN's II- XI intact bilaterally and moves all extremities Results & Data Results & Data Vital Signs (Past 12 Hours) Vital Signs Temp Pulse Pulse Resp BP Pulse Ox O2 Del Method 03/30/25 10:28 36.7 C 86 22 118/69 93 Room Air 03/30/25 08:00 Room Air 03/30/25 07:21 37.1 C 88 18 110/68 93 Room Air 03/30/25 07:00 102 H 03/30/25 04:12 37.2 C 114 H 18 165/93 H 95 Room Air 03/30/25 00:36 37.2 C 03/30/25 00:09 38.0 C H 107 H 18 160/99 H 97 Room Air
[2025-03-30 17:39] LABS: ANTI-Xa, UFH(UnfractionatedHep 0.29 IU/ml (0.3-0.7)
[2025-03-31 00:37] LABS: ANTI-Xa, UFH(UnfractionatedHep 0.33 IU/ml (0.3-0.7)
[2025-03-31 05:49] LABS: Hematocrit (blood only) 27.7 % (37.0-47.0); Hemoglobin 8.8 g/dl (12.0-16.0); Mean Corpuscular Hemoglobin 26.3 pg (25.0-34.0); Mean Corpuscular Volume 82.7 fL (80.0-100.0); Platelet Count 380 K/uL (130-400); RDW Standard Deviation 52.5 fL (36.4-46.3); Red Blood Count 3.35 M/uL (4.20-5.40); White Blood Count 12.26 K/ul (4.8-10.8)
[2025-03-31 05:54] LABS: ANTI-Xa, UFH(UnfractionatedHep 0.35 IU/ml (0.3-0.7)
[2025-03-31 06:03] LABS: INR 1.1 (0.9-1.1); Prothrombin Time 12.1 Seconds (9.0-12.0)
[2025-03-31 06:05] LABS: Anion Gap 10.0 (3-11); Blood Urea Nitrogen 16.0 mg/dl (6-23); Calcium 8.6 mg/dl (8.6-10.3); Carbon Dioxide 23.0 mmol/L (21-32); Chloride 97.0 mmol/L (98-107); Creatinine Clr Calc Pharmacy 75.6 ml/min; Glucose 86.0 mg/dl (70-99(Fasting)); Potassium 3.9 mmol/L (3.5-5.1); Sodium 130.0 mmol/L (136-145)
[2025-03-31 06:47] LABS: ALC (manual) 1.96 K/uL (1.2-3.4); ANC (manual) 7.36 K/uL (1.4-6.5); Polychromasia 2+
--- NOTE | 2025-03-31 10:01 | Orthopedic Progress Note ---
Date of Service March 31, 2025 Assessment & Plan (1) Spinal epidural abscess: Plan: At this time we will maintain the EMILY drain. Continue to emphasize transfers and standing as tolerated. Admission and Anticipated Discharge Date Admission Date: February 25, 2025 Subjective Patient only has complaints with activity. Otherwise is comfortable. Physical Exam Physical Exam: On exam patient is much more alert today. Dressing was changed. Incision is clean dry and intact no erythema or drainage. With the assistance of nursing she was transferred to a chair tolerated this reasonably well. Results & Data Vital Signs (Past 12 Hours) Vital Signs Temp Pulse Pulse Resp BP Pulse Ox O2 Del Method 03/31/25 07:34 37.1 C 102 H 20 149/82 H 100 Room Air 03/31/25 07:12 101 H 03/31/25 04:08 37.9 C H 105 H 16 133/79 94 Room Air 03/31/25 02:20 113 H 03/31/25 00:19 37.4 C 106 H 16 161/81 H 94 Room Air Queries Orthopedic Spine Acute Posthemorrhagic Anemia: Yes Obesity: Yes 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
--- NOTE | 2025-03-31 10:02 | Hospitalist Progress Note ---
Date of Service March 31, 2025 Assessment & Plan (1) Acute blood loss anemia: (2) Other spondylosis with radiculopathy, lumbar region: (3) Tachycardia: (4) Leukocytosis: (5) Hyponatremia: (6) Hypertension: (7) Hyperlipidemia: (8) Rheumatoid arthritis: Plan Ms Kaur is a 69 year old female with PMH significant for hypertension, hyperlipidemia, rheumatoid arthritis, palpitations, history of bilateral pulmonary emboli, and lumbar spondylosis with radiculopathy who underwent L1-L5 decompression and fusion on 02/25/[address] Nova. We have been consulted for post operative medical management. Course complicated by spinal epidural abscess s/p most recent ID on 03/26. #Post-op spinal epidural abscess s/p washout #Spondylosis with radiculopathy, lumbar region -02/25 L1-L5 decompression and fusion by Dr. Nova complicated by fluid collection, fall with end plate fractures -03/04 Post-op lumbar Spine MRI due to ongoing BLE weakness and pain revealed 15x5.1x3.1 cm fluid collection R aspect of subcu fat extending from level L1 vertebra down to level opposite L5 vertebra -03/05 CT lumbar spine revealed end plate fracture L4 and pedicle fx of L5 on the right, prompting revision surgery on 03/07 -03/07 S/p removal of posterior segmental instrumentation L2 L4-L5, revision decompression with bilateral foraminotomies L4-L5, kyphoplasty L2 L4 and L5 vertebral bodies, revision fusion L4-L5, L5-S1 -03/07 Epidural space and lumbar fascia OR cultures growing E coli, Morganella, corynebacterium, and staph epidermidis -03/18 s/p I&D w/ Dr. Nova - culture grew Enterococcus faecium VRE and velia albicans -03/26 s/ I&D w/ Dr. Nova, serous fluid noted but no gross purulence per review of op report - Culture from 03/26-VRE Per prior hospitalist: "03/21- case discussed with ID once more today given sensitivities and BRENDAN levels. Per Dr. Sharp: "...Since the VRE has high BRENDAN >4 for daptomycin, I would recommend starting on oral linezolid 600 mg twice daily. Please continue on IV ceftriaxone and reduce the dose to 2 g once daily. Also, continue on oral fluconazole and increase the dose to 600 mg once daily. Anticipated end date for IV ceftriaxone will be April 28, 2025. For both linezolid and fluconazole, she will likely require to be on them for life if tolerated. Please make sure to send for weekly CBC and CMP for the next 8 weeks after discharge. I would recommend that the patient got the labs done at [facility] so that I can follow up on them closely..." PT/OT as tolerated Blood culture sent on 03/29/2025 as patient had low-grade fever; no growth. Haywood catheter was changed on 03/29/2025. #Acute DVT/ Pulmonary Emboli #Sinus Tachycardia Pt with hypoxia and tachycardia on 03/12, requiring 2-3L of oxygen, CTA chest obtained which noted pulmonary emboli bilaterally throughout the lungs EKG noting sinus tachycardia Echo ordered to confirm no heart strain 03/16 received 1 unit of pRBC and Hgb stable, FOBT negative Started on Toprol 25mg BID, continue Started on heparin on 03/27/2025; low-dose without bolus after discussion with orthospine. Plan to switch to therapeutic dose of lovenox at the time of discharge to rehab and possibly can be switch to DOACs when she is discharged from rehab. she will need full dose anticoagulation for at least 6 months. #Acute blood loss anemia 2/2 surgery as above, s/p transfusion on 03/16 Hemoglobin down trended to 6.8 on 03/28; another unit of packed RBC ordered. Hb stabilized around 8.5 #Acute on Chronic Hyponatremia, likely siadh Nephrology consulted, On oral urea tablets. Was given Lasix initially which is stopped. Also on fluid restriction of 1.5 L CTM #Hypomagnesemia- repleted #Pre-Diabetes Steroid induced hyperglycemia -> resolved A1C 6.3 ctm on bmp #Hypertension- antihypertensive on hold #Rheumatoid arthritis Hold leflunomide. To be restarted after antibiotics are completed. DVT prophylaxis heparin Full code Updated patient's at bedside on 03/31/2025. Also updated patient's daughter at bedside on 03/30/2025 Time spent evaluating patient, direct bedside care, chart review, placing orders, interpretation of diagnostic studies, discussion with consultants, patient, and family members, as well as other required patient management activities is 50 minutes Please note the above document was generated using voice recognition software. It may contain grammatical, syntax or spelling errors. Any formal questions or concerns about the content, text or information contained within the body of this dictation should be directly addressed to the provider for clarification Admission and Anticipated Discharge Date Admission Date: February 25, 2025 Subjective Patient seen and examined at bedside. She is comfortable; not in distress. She denies fever, chills, chest pain, abdominal pain or urinary issues. She is alert and interactive. Review of Systems Review of Systems: All systems reviewed & are unremarkable except as noted in Subjective Physical Exam Physical Exam: Constitutional:awake, alert, oriented X 3; not in any distress Respiratory: Bilateral vesicular breath sound. Cardiovascular: RRR, no murmur, no edema Vessels: no JVD or carotid bruit Chest: normal inspection of chest Abdomen: normal bowel sounds, soft, nontender, no hepatosplenomegaly Neurologic: PERRL, EOMI, accommodation nl, no face palsy, no dysarthria CN's II- XI intact bilaterally and moves all extremities Results & Data Results & Data Vital Signs (Past 12 Hours) Vital Signs Temp Pulse Pulse Resp BP Pulse Ox O2 Del Method 03/31/25 07:34 37.1 C 102 H 20 149/82 H 100 Room Air 03/31/25 07:12 101 H 03/31/25 04:08 37.9 C H 105 H 16 133/79 94 Room Air 03/31/25 02:20 113 H 03/31/25 00:19 37.4 C 106 H 16 161/81 H 94 Room Air
[2025-04-01 06:33] LABS: Hematocrit (blood only) 26.5 % (37.0-47.0); Hemoglobin 8.7 g/dl (12.0-16.0); Mean Corpuscular Hemoglobin 26.8 pg (25.0-34.0); Mean Corpuscular Volume 81.5 fL (80.0-100.0); Platelet Count 360 K/uL (130-400); RDW Standard Deviation 52.9 fL (36.4-46.3); Red Blood Count 3.25 M/uL (4.20-5.40); White Blood Count 15.44 K/ul (4.8-10.8)
[2025-04-01 07:00] LABS: ALC (manual) 2.78 K/uL (1.2-3.4); ANC (manual) 10.19 K/uL (1.4-6.5); Polychromasia 1+
[2025-04-01 07:07] LABS: ANTI-Xa, UFH(UnfractionatedHep 0.38 IU/ml (0.3-0.7)
[2025-04-01 07:13] LABS: Anion Gap 11.0 (3-11); Blood Urea Nitrogen 20.0 mg/dl (6-23); Calcium 8.5 mg/dl (8.6-10.3); Carbon Dioxide 22.0 mmol/L (21-32); Chloride 96.0 mmol/L (98-107); Creatinine Clr Calc Pharmacy 49.1 ml/min; Glucose 93.0 mg/dl (70-99(Fasting)); Potassium 4.2 mmol/L (3.5-5.1); Sodium 129.0 mmol/L (136-145)
--- NOTE | 2025-04-01 09:18 | Orthopedic Progress Note ---
Date of Service April 01, 2025 Assessment & Plan (1) Spinal epidural abscess: Plan: I will continue to encourage her to get out of bed to a chair is much as possible. Continue to challenge her with weightbearing by the side of the bed. Admission and Anticipated Discharge Date Admission Date: February 25, 2025 Subjective Patient was in the chair for majority of the day yesterday. She tolerated this well. She has no complaints this morning. Physical Exam Physical Exam: Patient currently bed. EMILY drain functioning. Neurologically stable. Results & Data Vital Signs (Past 12 Hours) Vital Signs Temp Pulse Pulse Resp BP Pulse Ox O2 Del Method 04/01/25 09:00 98 H 04/01/25 09:00 Room Air 04/01/25 08:20 36.6 C 114 H 20 138/106 H 91 Room Air 04/01/25 04:24 99 H 04/01/25 04:20 37.1 C 87 17 126/84 94 Room Air 03/31/25 21:59 Room Air Queries Orthopedic Spine Acute Posthemorrhagic Anemia: Yes Obesity: Yes 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
[2025-04-01] MEDS: LINEZOLID 600 MG TAB PO SCH (09:26)
[2025-04-01] MEDS: FLUCONAZOLE 100 MG TAB PO SCH (09:29)
--- NOTE | 2025-04-01 10:08 | Hospitalist Progress Note ---
Date of Service April 01, 2025 Assessment & Plan (1) Acute blood loss anemia: (2) Other spondylosis with radiculopathy, lumbar region: (3) Tachycardia: (4) Leukocytosis: (5) Hyponatremia: (6) Hypertension: (7) Hyperlipidemia: (8) Rheumatoid arthritis: Plan Ms Kaur is a 69 year old female with PMH significant for hypertension, hyperlipidemia, rheumatoid arthritis, palpitations, history of bilateral pulmonary emboli, and lumbar spondylosis with radiculopathy who underwent L1-L5 decompression and fusion on 02/25/[address] Nova. We have been consulted for post operative medical management. Course complicated by spinal epidural abscess s/p most recent ID on 03/26. #Post-op spinal epidural abscess s/p washout #Spondylosis with radiculopathy, lumbar region -02/25 L1-L5 decompression and fusion by Dr. Nova complicated by fluid collection, fall with end plate fractures -03/04 Post-op lumbar Spine MRI due to ongoing BLE weakness and pain revealed 15x5.1x3.1 cm fluid collection R aspect of subcu fat extending from level L1 vertebra down to level opposite L5 vertebra -03/05 CT lumbar spine revealed end plate fracture L4 and pedicle fx of L5 on the right, prompting revision surgery on 03/07 -03/07 S/p removal of posterior segmental instrumentation L2 L4-L5, revision decompression with bilateral foraminotomies L4-L5, kyphoplasty L2 L4 and L5 vertebral bodies, revision fusion L4-L5, L5-S1 -03/07 Epidural space and lumbar fascia OR cultures growing E coli, Morganella, corynebacterium, and staph epidermidis -03/18 s/p I&D w/ Dr. Nova - culture grew Enterococcus faecium VRE and velia albicans -03/26 s/ I&D w/ Dr. Nova, serous fluid noted but no gross purulence per review of op report - Culture from 03/26-VRE Per prior hospitalist: "03/21- case discussed with ID once more today given sensitivities and BRENDAN levels. Per Dr. Sharp: "...Since the VRE has high BRENDAN >4 for daptomycin, I would recommend starting on oral linezolid 600 mg twice daily. Please continue on IV ceftriaxone and reduce the dose to 2 g once daily. Also, continue on oral fluconazole and increase the dose to 600 mg once daily. Anticipated end date for IV ceftriaxone will be April 28, 2025. For both linezolid and fluconazole, she will likely require to be on them for life if tolerated. Please make sure to send for weekly CBC and CMP for the next 8 weeks after discharge. I would recommend that the patient got the labs done at [facility] so that I can follow up on them closely..." PT/OT as tolerated Blood culture sent on 03/29/2025 as patient had low-grade fever; no growth. Haywood catheter was changed on 03/29/2025. #Acute DVT/ Pulmonary Emboli Pt with hypoxia and tachycardia on 03/12, requiring 2-3L of oxygen, CTA chest obtained which noted pulmonary emboli bilaterally throughout the lungs EKG noting sinus tachycardia Echo ordered to confirm no heart strain 03/16 received 1 unit of pRBC and Hgb stable, FOBT negative Started on Toprol 25mg BID, continue Started on heparin on 03/27/2025; low-dose without bolus after discussion with orthospine. Plan to switch to therapeutic dose of lovenox at the time of discharge to rehab and possibly can be switch to DOACs when she is discharged from rehab. she will need full dose anticoagulation for at least 6 months. #Acute blood loss anemia 2/2 surgery as above, s/p transfusion on 03/16 Hemoglobin down trended to 6.8 on 03/28; another unit of packed RBC ordered. Hb stabilized around 8.5 #Acute on Chronic Hyponatremia, likely siadh Nephrology consulted, On oral urea tablets. Was given Lasix initially which is stopped. Also on fluid restriction of 1.5 L CTM #Hypomagnesemia- repleted #Pre-Diabetes Steroid induced hyperglycemia -> resolved A1C 6.3 ctm on bmp #Hypertension- antihypertensive on hold #Rheumatoid arthritis Hold leflunomide. To be restarted after antibiotics are completed. DVT prophylaxis heparin Full code Time spent evaluating patient, direct bedside care, chart review, placing orders, interpretation of diagnostic studies, discussion with consultants, patient, and family members, as well as other required patient management activities is 50 minutes Please note the above document was generated using voice recognition software. It may contain grammatical, syntax or spelling errors. Any formal questions or concerns about the content, text or information contained within the body of this dictation should be directly addressed to the provider for clarification Admission and Anticipated Discharge Date Admission Date: February 25, 2025 Subjective Patient seen and examined at bedside. She is comfortable; not in distress Reports some pain in the back radiating down the calf. No significant events overnight Review of Systems Review of Systems: All systems reviewed & are unremarkable except as noted in Subjective Physical Exam Physical Exam: Constitutional:awake, alert, oriented X 3; not in any distress Respiratory: Bilateral vesicular breath sound. Cardiovascular: RRR, no murmur, no edema Vessels: no JVD or carotid bruit Chest: normal inspection of chest Abdomen: normal bowel sounds, soft, nontender, no hepatosplenomegaly Back: dressing intact; EMILY drain with serosangious discharge. Neurologic: PERRL, EOMI, accommodation nl, no face palsy, no dysarthria CN's II- XI intact bilaterally and moves all extremities Results & Data Results & Data Vital Signs (Past 12 Hours) Vital Signs Temp Pulse Pulse Resp BP Pulse Ox O2 Del Method 04/01/25 09:00 98 H 04/01/25 09:00 Room Air 04/01/25 08:20 36.6 C 114 H 20 138/106 H 91 Room Air 04/01/25 04:24 99 H 04/01/25 04:20 37.1 C 87 17 126/84 94 Room Air
[2025-04-01] MEDS: SODIUM CHLORIDE 0.9% 1,000 ML IV SCH (18:06)
[2025-04-02 05:54] LABS: Hematocrit (blood only) 24.6 % (37.0-47.0); Hemoglobin 7.9 g/dl (12.0-16.0); Mean Corpuscular Hemoglobin 26.2 pg (25.0-34.0); Mean Corpuscular Volume 81.5 fL (80.0-100.0); Platelet Count 309 K/uL (130-400); RDW Standard Deviation 52.2 fL (36.4-46.3); Red Blood Count 3.02 M/uL (4.20-5.40); White Blood Count 12.88 K/ul (4.8-10.8)
[2025-04-02 06:10] LABS: Anion Gap 9.0 (3-11); Blood Urea Nitrogen 18.0 mg/dl (6-23); Calcium 8.1 mg/dl (8.6-10.3); Carbon Dioxide 20.0 mmol/L (21-32); Chloride 101.0 mmol/L (98-107); Creatinine Clr Calc Pharmacy 54.6 ml/min; Glucose 77.0 mg/dl (70-99(Fasting)); Potassium 3.5 mmol/L (3.5-5.1); Sodium 130.0 mmol/L (136-145)
[2025-04-02 06:15] LABS: ANTI-Xa, UFH(UnfractionatedHep 0.33 IU/ml (0.3-0.7)
[2025-04-02 06:51] LABS: ALC (manual) 2.19 K/uL (1.2-3.4); ANC (manual) 9.14 K/uL (1.4-6.5); Blast # (manual) 0.26 K/uL (0-0); Polychromasia 1+
--- NOTE | 2025-04-02 08:03 | Orthopedic Progress Note ---
Date of Service April 02, 2025 Assessment & Plan (1) Spinal epidural abscess: Plan: At this time we will continue to encourage her to mobilize and get to the chair daily. Maintain the EMILY drain. Admission and Anticipated Discharge Date Admission Date: February 25, 2025 Subjective Patient voices no complaints this morning. Physical Exam Physical Exam: She is sitting up in bed. Neurologically she is unchanged. Drain is functioning. Results & Data Vital Signs (Past 12 Hours) Vital Signs Temp Pulse Pulse Resp BP Pulse Ox O2 Del Method 04/02/25 07:37 37.8 C H 105 H 18 151/83 H 95 Room Air 04/02/25 03:02 36.6 C 103 H 19 149/77 H 93 Room Air 04/02/25 02:03 92 H 04/01/25 23:45 36.7 C 105 H 19 150/83 H 96 Room Air Queries Orthopedic Spine Acute Posthemorrhagic Anemia: Yes Obesity: Yes 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
--- NOTE | 2025-04-02 12:39 | Hospitalist Progress Note ---
Date of Service April 02, 2025 Assessment & Plan (1) Acute blood loss anemia: (2) Other spondylosis with radiculopathy, lumbar region: (3) Tachycardia: (4) Leukocytosis: (5) Hyponatremia: (6) Hypertension: (7) Hyperlipidemia: (8) Rheumatoid arthritis: Plan Ms Kaur is a 69 year old female with PMH significant for hypertension, hyperlipidemia, rheumatoid arthritis, palpitations, history of bilateral pulmonary emboli, and lumbar spondylosis with radiculopathy who underwent L1-L5 decompression and fusion on 02/25/[address] Nova. We have been consulted for post operative medical management. Course complicated by spinal epidural abscess s/p most recent ID on 03/26. #Post-op spinal epidural abscess s/p washout #Spondylosis with radiculopathy, lumbar region -02/25 L1-L5 decompression and fusion by Dr. Nova complicated by fluid collection, fall with end plate fractures -03/04 Post-op lumbar Spine MRI due to ongoing BLE weakness and pain revealed 15x5.1x3.1 cm fluid collection R aspect of subcu fat extending from level L1 vertebra down to level opposite L5 vertebra -03/05 CT lumbar spine revealed end plate fracture L4 and pedicle fx of L5 on the right, prompting revision surgery on 03/07 -03/07 S/p removal of posterior segmental instrumentation L2 L4-L5, revision decompression with bilateral foraminotomies L4-L5, kyphoplasty L2 L4 and L5 vertebral bodies, revision fusion L4-L5, L5-S1 -03/07 Epidural space and lumbar fascia OR cultures growing E coli, Morganella, corynebacterium, and staph epidermidis -03/18 s/p I&D w/ Dr. Nova - culture grew Enterococcus faecium VRE and velia albicans -03/26 s/ I&D w/ Dr. Nova, serous fluid noted but no gross purulence per review of op report - Culture from 03/26-VRE Per prior hospitalist: "03/21- case discussed with ID once more today given sensitivities and BRENDAN levels. Per Dr. Sharp: "...Since the VRE has high BRENDAN >4 for daptomycin, I would recommend starting on oral linezolid 600 mg twice daily. Please continue on IV ceftriaxone and reduce the dose to 2 g once daily. Also, continue on oral fluconazole and increase the dose to 600 mg once daily. Anticipated end date for IV ceftriaxone will be April 28, 2025. For both linezolid and fluconazole, she will likely require to be on them for life if tolerated. Please make sure to send for weekly CBC and CMP for the next 8 weeks after discharge. I would recommend that the patient got the labs done at [facility] so that I can follow up on them closely..." PT/OT as tolerated Blood culture sent on 03/29/2025 as patient had low-grade fever; no growth. Haywood catheter was changed on 03/29/2025. Plan to follow up with infectious disease on May 29, 2025 #Acute DVT/ Pulmonary Emboli Pt with hypoxia and tachycardia on 03/12, requiring 2-3L of oxygen, CTA chest obtained which noted pulmonary emboli bilaterally throughout the lungs EKG noting sinus tachycardia Echo ordered to confirm no heart strain 03/16 received 1 unit of pRBC and Hgb stable, FOBT negative Started on Toprol 25mg BID, continue Started on heparin on 03/27/2025; low-dose without bolus after discussion with orthospine. Plan to switch to therapeutic dose of lovenox at the time of discharge to rehab and possibly can be switch to DOACs when she is discharged from rehab. she will need full dose anticoagulation for at least 6 months. #Acute blood loss anemia 2/2 surgery as above, s/p transfusion on 03/16 Hemoglobin down trended to 6.8 on 03/28; another unit of packed RBC ordered. Hb stabilized around 8 #Acute on Chronic Hyponatremia, likely siadh Nephrology consulted, On oral urea tablets. Was given Lasix initially which is stopped. Also on fluid restriction of 1.5 L CTM #Hypomagnesemia- repleted #Pre-Diabetes Steroid induced hyperglycemia -> resolved A1C 6.3 ctm on bmp #Hypertension- antihypertensive on hold #Rheumatoid arthritis Hold leflunomide. To be restarted after antibiotics are completed. DVT prophylaxis heparin Full code Updated at bedside. Time spent evaluating patient, direct bedside care, chart review, placing orders, interpretation of diagnostic studies, discussion with consultants, patient, and family members, as well as other required patient management activities is 75 minutes Please note the above document was generated using voice recognition software. It may contain grammatical, syntax or spelling errors. Any formal questions or concerns about the content, text or information contained within the body of this dictation should be directly addressed to the provider for clarification Admission and Anticipated Discharge Date Admission Date: February 25, 2025 Subjective Patient seen and examined at bedside. She is awake, alert oriented x 3. Reports that the pain is well-controlled. No fever or chills overnight. No significant events. She is still needing 3 person assist to get out of bed. Review of Systems Review of Systems: All systems reviewed & are unremarkable except as noted in Subjective Physical Exam Physical Exam: Constitutional:awake, alert, oriented X 3; not in any distress Respiratory: Bilateral vesicular breath sound. Cardiovascular: RRR, no murmur, no edema Vessels: no JVD or carotid bruit Chest: normal inspection of chest Abdomen: normal bowel sounds, soft, nontender, no hepatosplenomegaly Back: dressing intact; EMILY drain with serosangious discharge. Neurologic: PERRL, EOMI, accommodation nl, no face palsy, no dysarthria CN's II- XI intact bilaterally and moves all extremities Results & Data Results & Data Vital Signs (Past 12 Hours) Vital Signs Temp Pulse Pulse Resp BP Pulse Ox O2 Del Method 04/02/25 12:06 36.5 C 87 20 160/85 H 94 Room Air 04/02/25 08:00 103 H 04/02/25 08:00 Room Air 04/02/25 07:37 37.8 C H 105 H 18 151/83 H 95 Room Air 04/02/25 03:02 36.6 C 103 H 19 149/77 H 93 Room Air 04/02/25 02:03 92 H
[2025-04-03 06:22] LABS: Hematocrit (blood only) 23.8 % (37.0-47.0); Hemoglobin 7.7 g/dl (12.0-16.0); Mean Corpuscular Hemoglobin 26.4 pg (25.0-34.0); Mean Corpuscular Volume 81.5 fL (80.0-100.0); Platelet Count 322 K/uL (130-400); RDW Standard Deviation 53.4 fL (36.4-46.3); Red Blood Count 2.92 M/uL (4.20-5.40); White Blood Count 13.21 K/ul (4.8-10.8)
[2025-04-03 06:40] LABS: Anion Gap 11.0 (3-11); Blood Urea Nitrogen 17.0 mg/dl (6-23); Calcium 8.4 mg/dl (8.6-10.3); Carbon Dioxide 18.0 mmol/L (21-32); Chloride 102.0 mmol/L (98-107); Creatinine Clr Calc Pharmacy 59.8 ml/min; Glucose 89.0 mg/dl (70-99(Fasting)); Potassium 3.5 mmol/L (3.5-5.1); Sodium 131.0 mmol/L (136-145)
[2025-04-03 06:43] LABS: Immature Granulocytes # (auto) 1.16 K/uL (0.01-0.20); Immature Granulocytes % (auto) 8.8 %; Polychromasia 1+
[2025-04-03 07:06] LABS: ANTI-Xa, UFH(UnfractionatedHep 0.33 IU/ml (0.3-0.7)
[2025-04-03] MEDS: ENOXAPARIN 100 MG/1ML SYR SQ SCH (08:02)
[2025-04-03] MEDS ORDERED: ENOXAPARIN 1 MG/KG SC SCH (09:00)
--- NOTE | 2025-04-03 11:25 | Nephrology Progress Note ---
Date of Service April 03, 2025 Assessment & Plan Admission and Anticipated Discharge Date Admission Date: February 25, 2025 Subjective Assessment & Plan (1) Acute on Chronic hyponatremia: Plan: present prior to admission and mild. likely multifactorial . pre-existing mild hyponatremia in pt on hctz Na low from various Causes--SAIDH, poor oral intake etc na slowly going up now. now 131--Have been stable around 130 qi for many days now. . FFR 1500 ml--not even drinking that much. With her very poor PO intake Want to see whether she even needs the urea. Does not taste good so Will stop Urea. If we can keep Na 129 or More no need of it. So currently other than FFR no active intervention being done for Low Na+. will follow peripherally Subjective Overall declined--Not eating much. Only about 25%. making urine--has mckenzie. Review of Systems Review of Systems: All systems reviewed & are unremarkable except as noted in Subjective Physical Exam Constitutional: well developed, + obese, + altered mental status (Question due to fatigue?), + physical limitations (limited ROM limbs) and + frail appearing; no acute distress Eyes: EOM intact bilaterally ENMT: Ears: no external ear abnormality Nose: no external nose abnormality Mouth: + dry oral mucous membranes Neck: no nuchal rigidity Respiratory: normal respiratory effort Auscultation: + diminished lung sounds Cardiovascular: Rate/Rhythm: regular rhythm and + tachycardic (in 100s) E xtremities: no edema (including none peripheral) Gastrointestinal (Abdomen): Inspection/Auscultation: normal bowel sounds and + abdominal surgical drain present Percussion/Palpation: abdomen soft; abdomen nontender Skin: no rashes, warm and dry Results & Data Vital Signs (Past 12 Hours) Vital Signs Temp Pulse Pulse Resp BP Pulse Ox O2 Del Method 04/03/25 08:30 37 C 04/03/25 08:09 105 H 18 124/82 95 Room Air 04/03/25 00:21 37.1 C 104 H 18 141/83 H 94 Room Air 04/02/25 23:45 107 H
--- NOTE | 2025-04-03 12:45 | Hospitalist Progress Note ---
Date of Service April 03, 2025 Assessment & Plan (1) Acute blood loss anemia: (2) Other spondylosis with radiculopathy, lumbar region: (3) Tachycardia: (4) Leukocytosis: (5) Hyponatremia: (6) Hypertension: (7) Hyperlipidemia: (8) Rheumatoid arthritis: Plan Ms Kaur is a 69 year old female with PMH significant for hypertension, hyperlipidemia, rheumatoid arthritis, palpitations, history of bilateral pulmonary emboli, and lumbar spondylosis with radiculopathy who underwent L1-L5 decompression and fusion on 02/25/[address] Nova. We have been consulted for post operative medical management. Course complicated by spinal epidural abscess s/p most recent ID on 03/26. #Post-op spinal epidural abscess s/p washout #Spondylosis with radiculopathy, lumbar region -02/25 L1-L5 decompression and fusion by Dr. Nova complicated by fluid collection, fall with end plate fractures -03/04 Post-op lumbar Spine MRI due to ongoing BLE weakness and pain revealed 15x5.1x3.1 cm fluid collection R aspect of subcu fat extending from level L1 vertebra down to level opposite L5 vertebra -03/05 CT lumbar spine revealed end plate fracture L4 and pedicle fx of L5 on the right, prompting revision surgery on 03/07 -03/07 S/p removal of posterior segmental instrumentation L2 L4-L5, revision decompression with bilateral foraminotomies L4-L5, kyphoplasty L2 L4 and L5 vertebral bodies, revision fusion L4-L5, L5-S1 -03/07 Epidural space and lumbar fascia OR cultures growing E coli, Morganella, corynebacterium, and staph epidermidis -03/18 s/p I&D w/ Dr. Nova - culture grew Enterococcus faecium VRE and velia albicans -03/26 s/ I&D w/ Dr. Nova, serous fluid noted but no gross purulence per review of op report - Culture from 03/26-VRE Per prior hospitalist: "03/21- case discussed with ID once more today given sensitivities and BRENDAN levels. Per Dr. Sahrp: "...Since the VRE has high BRENDAN >4 for daptomycin, I would recommend starting on oral linezolid 600 mg twice daily. Please continue on IV ceftriaxone and reduce the dose to 2 g once daily. Also, continue on oral fluconazole and increase the dose to 600 mg once daily. Anticipated end date for IV ceftriaxone will be April 28, 2025. For both linezolid and fluconazole, she will likely require to be on them for life if tolerated. Please make sure to send for weekly CBC and CMP for the next 8 weeks after discharge. I would recommend that the patient got the labs done at [facility] so that I can follow up on them closely..." PT/OT as tolerated Blood culture sent on 03/29/2025 as patient had low-grade fever; no growth. Haywood catheter was changed on 03/29/2025. Plan to follow up with infectious disease on May 29, 2025 Deliriumlikely related with compication of infection/hospital delirium/anesthesia. Had MRI of the brain on 03/24 which did not show any acute finding. CT head on 03/27 and 03/29 did not show any acute finding. Medication reviewed with pharmacy on 04/02/2025; no medication contributing to the delirium. Continue delirium precaution. Avoid sedatives. Pain control with IV Tylenol #Acute DVT/ Pulmonary Emboli Pt with hypoxia and tachycardia on 03/12, requiring 2-3L of oxygen, CTA chest obtained which noted pulmonary emboli bilaterally throughout the lungs EKG noting sinus tachycardia Echo ordered to confirm no heart strain 03/16 received 1 unit of pRBC and Hgb stable, FOBT negative Started on Toprol 25mg BID, continue Started on heparin on 03/27/2025; low-dose without bolus after discussion with orthospine. Switched over to therapeutic Lovenox on ; plan to continue that while she is at rehabswitch to p.o. DOAC's when getting discharged from rehab. Will need 6 months of anticoagulation. #Acute blood loss anemia 2/2 surgery as above, s/p transfusion on 03/16 Hemoglobin down trended to 6.8 on 03/28; another unit of packed RBC ordered. Hb stable #Acute on Chronic Hyponatremia, likely siadh Nephrology consulted, was on oral urea tablets. Was given Lasix initially which is stopped. Also on fluid restriction of 1.5 L Oral urea discontinued on 04/03/2025 #Hypomagnesemia- repleted #Pre-Diabetes Steroid induced hyperglycemia -> resolved A1C 6.3 ctm on bmp #Hypertension- antihypertensive on hold #Rheumatoid arthritis Hold leflunomide. To be restarted after antibiotics are completed. DVT prophylaxis lovenox Full code Time spent evaluating patient, direct bedside care, chart review, placing orders, interpretation of diagnostic studies, discussion with consultants, patient, and family members, as well as other required patient management activities is 50 minutes Please note the above document was generated using voice recognition software. It may contain grammatical, syntax or spelling errors. Any formal questions or concerns about the content, text or information contained within the body of this dictation should be directly addressed to the provider for clarification Admission and Anticipated Discharge Date Admission Date: February 25, 2025 Subjective Patient seen and examined at bedside. She is comfortable; not in distress. Denies any pain. She is alert oriented x 3. Review of Systems Review of Systems: All systems reviewed & are unremarkable except as noted in Subjective Physical Exam Physical Exam: Constitutional:awake, alert, oriented X 3; not in any distress Respiratory: Bilateral vesicular breath sound. Cardiovascular: RRR, no murmur, no edema Vessels: no JVD or carotid bruit Chest: normal inspection of chest Abdomen: normal bowel sounds, soft, nontender, no hepatosplenomegaly Back: dressing intact; EMILY drain with serosangious discharge. Neurologic: PERRL, EOMI, accommodation nl, no face palsy, no dysarthria CN's II- XI intact bilaterally and moves all extremities Results & Data Results & Data Vital Signs (Past 12 Hours) Vital Signs Temp Pulse Pulse Resp BP Pulse Ox O2 Del Method 04/03/25 12:16 101 H 04/03/25 12:08 37.2 C 111 H 20 125/60 98 Room Air 04/03/25 08:30 37 C 04/03/25 08:09 105 H 18 124/82 95 Room Air 04/03/25 08:00 Room Air
--- NOTE | 2025-04-03 13:13 | Orthopedic Progress Note ---
Date of Service April 03, 2025 Assessment & Plan (1) Spinal epidural abscess: Plan: At this time we will continue to encourage her to get out of bed and participate with physical therapy. Under her current mental status to be difficult to have her discharged to her SNF at this time. Admission and Anticipated Discharge Date Admission Date: February 25, 2025 Subjective Patient is somewhat confused this morning. She does not answer questions appropriately. Physical Exam Physical Exam: On exam she is cooperative with neurologic testing. Is unchanged. She is currently in bed. Results & Data Vital Signs (Past 12 Hours) Vital Signs Temp Pulse Pulse Resp BP Pulse Ox O2 Del Method 04/03/25 12:16 101 H 04/03/25 12:08 37.2 C 111 H 20 125/60 98 Room Air 04/03/25 08:30 37 C 04/03/25 08:09 105 H 18 124/82 95 Room Air 04/03/25 08:00 Room Air Queries Orthopedic Spine Acute Posthemorrhagic Anemia: Yes Obesity: Yes 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
[2025-04-03] MEDS: ACETAMINOPHEN 1,000 MG/100 ML VIAL IV PRN (18:24)
[2025-04-04 06:38] LABS: Hematocrit (blood only) 22.8 % (37.0-47.0); Hemoglobin 7.4 g/dl (12.0-16.0); Mean Corpuscular Hemoglobin 26.6 pg (25.0-34.0); Mean Corpuscular Volume 82.0 fL (80.0-100.0); Platelet Count 348 K/uL (130-400); RDW Standard Deviation 54.4 fL (36.4-46.3); Red Blood Count 2.78 M/uL (4.20-5.40); White Blood Count 13.25 K/ul (4.8-10.8)
[2025-04-04 07:12] LABS: Anion Gap 8.0 (3-11); Blood Urea Nitrogen 19.0 mg/dl (6-23); Calcium 8.8 mg/dl (8.6-10.3); Carbon Dioxide 21.0 mmol/L (21-32); Chloride 104.0 mmol/L (98-107); Creatinine Clr Calc Pharmacy 56.5 ml/min; Glucose 90.0 mg/dl (70-99(Fasting)); Potassium 3.5 mmol/L (3.5-5.1); Sodium 133.0 mmol/L (136-145)
[2025-04-04 07:35] LABS: Immature Granulocytes # (auto) 0.77 K/uL (0.01-0.20); Immature Granulocytes % (auto) 5.8 %; Polychromasia 1+; Rouleaux 1+; Toxic Vacuolation 1+
--- NOTE | 2025-04-04 10:36 | Orthopedic Progress Note ---
Date of Service April 04, 2025 Assessment & Plan (1) Lumbar compression fracture: Plan: At this time we will continue transfers from bed to chair stand as tolerated. Discontinue her drain today. Admission and Anticipated Discharge Date Admission Date: February 25, 2025 Subjective Patient is currently in the bed at the bedside. She complains of intermittent left and right buttock pain. Denies any leg pain. Physical Exam Physical Exam: On exam patient is cooperative but requires tremendous prompting. She is neurologically unchanged to her lower extremities. Results & Data Vital Signs (Past 12 Hours) Vital Signs Temp Pulse Pulse Resp BP Pulse Ox O2 Del Method 04/04/25 09:50 Room Air 04/04/25 08:15 37.1 C 103 H 24 163/82 H 92 Room Air 04/04/25 07:14 97 H 04/04/25 03:16 37.3 C 95 H 18 146/82 H 98 Room Air 04/04/25 02:52 98 H 04/04/25 01:15 Room Air Queries Orthopedic Spine Acute Posthemorrhagic Anemia: Yes Obesity: Yes 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
--- NOTE | 2025-04-04 11:52 | Nephrology Progress Note ---
Date of Service April 04, 2025 Assessment & Plan (1) Chronic hyponatremia: Plan: 1) Chronic hyponatremia: Plan: present prior to admission and mild. likely multifactorial and improved/stabilized; managed as SIADH. pre-existing mild hyponatremia in pt on hctz Na slowly going up now. now 133. will continue same management essentially with 1.5 L FR and target 90 gm daily protein intake FFR 1500 ml--not even drinking that much. BMP daily. Replace electrolytes as needed to keep K >4 and Mg >2. Admission and Anticipated Discharge Date Admission Date: February 25, 2025 Subjective no acute interval events linically; s/p 03/26 OR trip for placmenet of abtx beads and PAULA drain Physical Exam 2 Constitutional: well developed, + obese, + altered mental status (Question due to fatigue?), + physical limitations (limited ROM limbs) and + frail appearing; no acute distress Eyes: EOM intact bilaterally ENMT: Ears: no external ear abnormality Nose: no external nose abnormality Mouth: + dry oral mucous membranes Neck: no nuchal rigidity Respiratory: normal respiratory effort Auscultation: + diminished lung sounds Cardiovascular: Rate/Rhythm: regular rhythm and + tachycardic (in 100s) E xtremities: no edema (including none peripheral) Gastrointestinal (Abdomen): Inspection/Auscultation: normal bowel sounds and + abdominal surgical drain present Percussion/Palpation: abdomen soft; abdomen nontender Skin: no rashes, warm and dry Results & Data Vital Signs (Past 12 Hours) Vital Signs Temp Pulse Pulse Resp BP Pulse Ox O2 Del Method 04/04/25 11:02 36.9 C 100 H 20 104/62 93 Room Air 04/04/25 09:50 Room Air 04/04/25 08:15 37.1 C 103 H 24 163/82 H 92 Room Air 04/04/25 07:14 97 H 04/04/25 03:16 37.3 C 95 H 18 146/82 H 98 Room Air 04/04/25 02:52 98 H 04/04/25 01:15 Room Air Laboratory Results 04/04/25 06:20 04/04/25 06:20
--- NOTE | 2025-04-04 12:15 | Hospitalist Progress Note ---
Date of Service April 04, 2025 Assessment & Plan (1) Acute blood loss anemia: (2) Other spondylosis with radiculopathy, lumbar region: (3) Tachycardia: (4) Leukocytosis: (5) Hyponatremia: (6) Hypertension: (7) Hyperlipidemia: (8) Rheumatoid arthritis: Plan Ms Kaur is a 69 year old female with PMH significant for hypertension, hyperlipidemia, rheumatoid arthritis, palpitations, history of bilateral pulmonary emboli, and lumbar spondylosis with radiculopathy who underwent L1-L5 decompression and fusion on 02/25/[address] Nova. We have been consulted for post operative medical management. Course complicated by spinal epidural abscess s/p most recent ID on 03/26. #Post-op spinal epidural abscess s/p washout #Spondylosis with radiculopathy, lumbar region -02/25 L1-L5 decompression and fusion by Dr. Nova complicated by fluid collection, fall with end plate fractures -03/04 Post-op lumbar Spine MRI due to ongoing BLE weakness and pain revealed 15x5.1x3.1 cm fluid collection R aspect of subcu fat extending from level L1 vertebra down to level opposite L5 vertebra -03/05 CT lumbar spine revealed end plate fracture L4 and pedicle fx of L5 on the right, prompting revision surgery on 03/07 -03/07 S/p removal of posterior segmental instrumentation L2 L4-L5, revision decompression with bilateral foraminotomies L4-L5, kyphoplasty L2 L4 and L5 vertebral bodies, revision fusion L4-L5, L5-S1 -03/07 Epidural space and lumbar fascia OR cultures growing E coli, Morganella, corynebacterium, and staph epidermidis -03/18 s/p I&D w/ Dr. Nova - culture grew Enterococcus faecium VRE and velia albicans -03/26 s/ I&D w/ Dr. Nova, serous fluid noted but no gross purulence per review of op report - Culture from 03/26-VRE Per prior hospitalist: "03/21- case discussed with ID once more today given sensitivities and BRENDAN levels. Per Dr. Sharp: "...Since the VRE has high BRENDAN >4 for daptomycin, I would recommend starting on oral linezolid 600 mg twice daily. Please continue on IV ceftriaxone and reduce the dose to 2 g once daily. Also, continue on oral fluconazole and increase the dose to 600 mg once daily. Anticipated end date for IV ceftriaxone will be April 28, 2025. For both linezolid and fluconazole, she will likely require to be on them for life if tolerated. Please make sure to send for weekly CBC and CMP for the next 8 weeks after discharge. I would recommend that the patient got the labs done at [facility] so that I can follow up on them closely..." PT/OT as tolerated Blood culture sent on 03/29/2025 as patient had low-grade fever; no growth. Haywood catheter was changed on 03/29/2025. Plan to follow up with infectious disease on May 29, 2025 Deliriumlikely related with compication of infection/hospital delirium/anesthesia. Had MRI of the brain on 03/24 which did not show any acute finding; chronic microvascular changes seen. CT head on 03/27 and 03/29 did not show any acute finding. Medication reviewed with pharmacy on 04/02/2025; no medication contributing to the delirium. Continue delirium precaution. Avoid sedatives. Pain control with IV Tylenol. Discussed with patient's at bedside regarding this on April 04; he wants neurology to evaluate him to see if they will have any further recommendation. Neurology consulted #Acute DVT/ Pulmonary Emboli Pt with hypoxia and tachycardia on 03/12, requiring 2-3L of oxygen, CTA chest obtained which noted pulmonary emboli bilaterally throughout the lungs EKG noting sinus tachycardia Echo ordered to confirm no heart strain 03/16 received 1 unit of pRBC and Hgb stable, FOBT negative Started on heparin on 03/27/2025; low-dose without bolus after discussion with orthospine. Switched over to therapeutic Lovenox on ; plan to continue that while she is at rehabswitch to p.o. DOAC's when getting discharged from rehab. Will need 6 months of anticoagulation. #Acute blood loss anemia 2/2 surgery as above, s/p transfusion on 03/16 Hemoglobin down trended to 6.8 on 03/28; another unit of packed RBC ordered. Hb gradually downtrended; likely results of blood draws and serosanguineous drainage #Acute on Chronic Hyponatremia, likely siadh Nephrology consulted, was on oral urea tablets. Was given Lasix initially which is stopped. Also on fluid restriction of 1.5 L Oral urea discontinued on 04/03/2025 #Hypomagnesemia- repleted #Pre-Diabetes Steroid induced hyperglycemia -> resolved A1C 6.3 ctm on bmp #Hypertension- antihypertensive on hold #Rheumatoid arthritis Hold leflunomide. To be restarted after antibiotics are completed. DVT prophylaxis lovenox Full code Time spent evaluating patient, direct bedside care, chart review, placing orders, interpretation of diagnostic studies, discussion with consultants, patient, and family members, as well as other required patient management activities is 50 minutes Please note the above document was generated using voice recognition software. It may contain grammatical, syntax or spelling errors. Any formal questions or concerns about the content, text or information contained within the body of this dictation should be directly addressed to the provider for clarification Admission and Anticipated Discharge Date Admission Date: February 25, 2025 Subjective Patient seen at bedside. PT and OT are also at bedside. They were able to get her to the bedside chair. Patient is not participating in physical therapy. Review of Systems Review of Systems: All systems reviewed & are unremarkable except as noted in Subjective Physical Exam Physical Exam: Constitutional:awake, alert, oriented X 3; appropriately answering quesitons Respiratory: Bilateral vesicular breath sound. Cardiovascular: RRR, no murmur, no edema Vessels: no JVD or carotid bruit Chest: normal inspection of chest Abdomen: normal bowel sounds, soft, nontender, no hepatosplenomegaly Neurologic: PERRL, EOMI, accommodation nl, no face palsy, no dysarthria CN's II- XI intact bilaterally and moves all extremities Results & Data Results & Data Vital Signs (Past 12 Hours) Vital Signs Temp Pulse Pulse Resp BP Pulse Ox O2 Del Method 04/04/25 11:02 36.9 C 100 H 20 104/62 93 Room Air 04/04/25 09:50 Room Air 04/04/25 08:15 37.1 C 103 H 24 163/82 H 92 Room Air 04/04/25 07:14 97 H 04/04/25 03:16 37.3 C 95 H 18 146/82 H 98 Room Air 04/04/25 02:52 98 H 04/04/25 01:15 Room Air
[2025-04-04] MEDS: POTASSIUM CHLORIDE CRTAB 20 MEQ TABCR PO SCH (14:07)
--- NOTE | 2025-04-04 14:42 | Neurology Consultation ---
Date of Consultation April 04, 2025 Assessment & Plan (1) Metabolic encephalopathy: Recommend MRI brain with and without contrast Agree with continued antimicrobial treatment Agree with limiting sedative medications Recommend discontinue melatonin Continue to provide hospital related delirium precautions Continue frequent neurological assessments Obtain stat CT brain without contrast for any acute neurological decline Continue to monitor/control blood pressure & blood glucose Continue to monitor telemetry closely Continue to monitor renal and hepatic function, keep euvolemic Continue to monitor serum sodium Ok from neurology perspective for VTE prophylaxis PT/OT/SLT to eval and treat Telehealth Consultation Telehealth Information Telehealth Information: I performed this visit using a real-time telehealth connection between my location and the patients location (). After connecting through interactive tele-video, patient was identified by name and date of and/or wristband check.Patient (or authorized healthcare client care representative) was informed that this was a telemedicine visit and it was being conducted confidentially over secure lines. My office door was closed and no one else was present in the room with me. History of Present Illness Reason for Consultation: Altered mentation Requesting Physician: Dr Santso Attending Physician: Adriel Nova, DO History of Present Illness 69yo female has been hospitalized since the beginning of February has had spinal procedure with instrumentation and subsequent removal following evidence of infection and subsequently has undergone I & D twice from what I am able to gather per extensive documentation review. She is on multiple antimicrobials at this time and appears to demonstrate fairly consistent fluctuations in mentation. Apparently was more alert and oriented this AM. At this time I have preformed televideo consultation with help of RN at bedside. Patient appears extremely lethargic and will appear to fall asleep in between questions. She will answer appropriately and will name objects on televideo correctly but with much effort for patient to awaken and answer questions/name objects. She will require care home treatment with continued antimicrobials. She has undergone an MRI brain without contrast on 03/24/25 revealing no overt evidence of acute intracranial abnormality. She has demonstrated hyponatremia which has improved and unfortunately has suffered further complication middle of February with DVT/PE. I suspect she is suffering from a continued component of delirium as she appears exhausted now but will fluctuate mentation throughout day and at times demonstrated more wakefulness and appears more readily alert in conversation. 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 I have communicated directly with primary/hos pitalist team. Allergies Allergy/AdvReac Type Severity Reaction Status Date / Time ampicillin Allergy Severe Rash Verified 03/18/25 13:28 terbinafine Allergy Severe Diarrhea Verified 03/18/25 13:28 Home Medications Medication Instructions Recorded Confirmed Type amlodipine 5 mg tablet 5 mg PO BID 01/31/25 02/25/25 History ascorbic acid (vitamin C) 500 mg 500 mg PO DAILY 01/31/25 02/25/25 History tablet (Vitamin C) cholecalciferol (vitamin D3) 25 25 mcg PO DAILY 01/31/25 02/25/25 History mcg (1,000 unit) capsule (Vitamin D3) etanercept 50 mg/mL (1 mL) 50 mg subcut WK 01/31/25 02/25/25 History subcutaneous cartridge (Enbrel Mini) hydrochlorothiazide 25 mg tablet 25 mg PO QAM 01/31/25 02/25/25 History leflunomide 10 mg tablet 10 mg PO QAM 01/31/25 02/25/25 History magnesium 200 mg tablet 200 mg PO DAILY 01/31/25 02/25/25 History multivitamin 1 tab PO DAILY 01/31/25 02/25/25 History omega-3 fatty acids 1,000 mg PO DAILY 01/31/25 02/25/25 History potassium chloride 10 mEq 20 meq PO QAM 01/31/25 02/25/25 History tablet,extended release (Klor-Con) spironolactone 25 mg tablet 25 mg PO QAM 01/31/25 02/25/25 History zolpidem 10 mg tablet 10 mg PO HS PRN prn 01/31/25 02/25/25 History oxycodone 5 mg tablet 5 mg PO Q6H PRN pain #30 tabs 02/26/25 Rx tramadol 50 mg tablet 50 mg PO Q6H PRN pain, moderate 02/26/25 Rx #30 tabs aspirin 81 mg tablet 81 mg PO DAILY 02/28/25 02/28/25 History rifampin 300 mg capsule 300 mg PO BID #60 caps 03/15/25 Rx Patient History Medical History History of UTI Rheumatoid arthritis Follows with Dr Ho/PH Yohannes History of DVT (deep vein thrombosis) (2019) BL LE, was on AC x4 months (then discontinued) No issues since Hypertension Surgical History History of colonoscopy History of neuroma removal- right foot History of wisdom tooth extraction History of bunionectomy of both great toes History of tonsillectomy History of cataract surgery R/L History of cardiac cath (~2019) no stents Social History Smoking Status: Never smoker Second Hand Exposure: No; Do You Dip or Chew Tobacco: No; Tobacco Cessation Education Requested by Patient: No Hx Alcohol Use: Yes Hx Substance Use: No Preferred Language: Lithuanian Communication Ability: Effective [employer] Ten[employer] Required: No Beliefs That Will Affect Care: Confucianism Current Living Situation: Spouse Other Information That Helps Us Care for You: No Feels Safe at Home: Yes Safety Concerns: Feels Safe At This Time Assistive Devices: Cane, Stair Lift, Walker, Wheelchair and Other Physical Exam Neurological Examination: Mental Status: Awake but notably lethargic Will answer appropriately with persistence CN testing: I: Deferred II:Reports no changes in visual acuity III/IV/: No evidence of gaze preference, hippus, nystagmus or roving eye movements V: Facial sensation is difficult to reliably assess VII: Facial movements appear without evidence of asymmetry VIII: Hearing appears grossly intact to loud voice bilaterally IX/X: Palate is unable to be accurately assessed via telemedicine XI: Shoulder shrug is unable to be assessed XII: Tongue protrudes midline without evidence of biting Motor exam: Moves extremities spontaneously/antigravity Sensory: Sensation is difficult to reliably assess Coordination: Deferred Reflexes: Deferred Gait: Deferred Results & Data Vital Signs (Past 12 Hours) Vital Signs Temp Pulse Pulse Resp BP Pulse Ox O2 Del Method 04/04/25 11:02 36.9 C 100 H 20 104/62 93 Room Air 04/04/25 09:50 Room Air 04/04/25 08:15 37.1 C 103 H 24 163/82 H 92 Room Air 04/04/25 07:14 97 H 04/04/25 03:16 37.3 C 95 H 18 146/82 H 98 Room Air 04/04/25 02:52 98 H Laboratory Results Abnormal lab results 04/04/25 Range/Units 06:20 WBC 13.25 H (4.8-10.8) K/ul RBC 2.78 L (4.20-5.40) M/uL Hgb 7.4 L (12.0-16.0) g/dl Hct 22.8 L (37.0-47.0) % RDW Std Deviation 54.4 H (36.4-46.3) fL RDW Coeff of Neto 18.3 H (11.5-14.5) % Neut # (Auto) 9.88 H (1.40-6.50) K/uL [place] # (Auto) 0.97 H (0.11-0.59) K/uL Immature Gran # (Auto) 0.77 H (0.01-0.20) K/uL Sodium 133 L (136-145) mmol/L Medications Administered Home Medications Medication Instructions Recorded Confirmed Last Taken amlodipine 5 mg tablet 5 mg PO BID 01/31/25 02/25/25 02/25/25 04:30 ascorbic acid (vitamin C) 500 mg 500 mg PO DAILY 01/31/25 02/25/25 02/24/25 09:00 tablet (Vitamin C) cholecalciferol (vitamin D3) 25 25 mcg PO DAILY 01/31/25 02/25/25 02/24/25 09:00 mcg (1,000 unit) capsule (Vitamin D3) etanercept 50 mg/mL (1 mL) 50 mg subcut WK 01/31/25 02/25/25 02/24/25 09:00 subcutaneous cartridge (Enbrel Mini) hydrochlorothiazide 25 mg tablet 25 mg PO QAM 01/31/25 02/25/25 02/24/25 09:00 leflunomide 10 mg tablet 10 mg PO QAM 01/31/25 02/25/25 02/17/25 09:00 magnesium 200 mg tablet 200 mg PO DAILY 01/31/25 02/25/25 02/23/25 09:00 multivitamin 1 tab PO DAILY 01/31/25 02/25/25 02/23/25 09:00 omega-3 fatty acids 1,000 mg PO DAILY 01/31/25 02/25/25 02/17/25 09:00 potassium chloride 10 mEq 20 meq PO QAM 01/31/25 02/25/25 02/24/25 09:00 tablet,extended release (Klor-Con) spironolactone 25 mg tablet 25 mg PO QAM 01/31/25 02/25/25 02/24/25 09:00 zolpidem 10 mg tablet 10 mg PO HS PRN prn 01/31/25 02/25/25 02/24/25 20:00 oxycodone 5 mg tablet 5 mg PO Q6H PRN pain #30 tabs 02/26/25 Unknown tramadol 50 mg tablet 50 mg PO Q6H PRN pain, moderate 02/26/25 Unknown #30 tabs aspirin 81 mg tablet 81 mg PO DAILY 02/28/25 02/28/25 Unknown rifampin 300 mg capsule 300 mg PO BID #60 caps 03/15/25 Unknown Active Medications Generic Name Dose Route Start Last Admin Trade Name Freq PRN Reason Stop Dose Admin Al Hydrox/Mg Hydrox/Simethicone 30 ml 02/25/25 14:54 03/10/25 18:41 Aluminum/Magnesium Susp 30 Ml Udc PO 04/27/25 14:53 30 ml Q6H PRN Administration Dyspepsia Ascorbic Acid 500 mg 02/26/25 09:00 04/04/25 08:36 Ascorbic Acid 500 Mg Tab PO 04/28/25 08:59 500 mg DAILY PATRICK Administration Clotrimazole 1 appln 03/12/25 21:00 04/04/25 08:36 Clotrimazole 1% Cr 15 Gm Tube EXT 04/11/25 20:59 1 appln BID PATRICK Administration Enoxaparin Sodium 90 mg 04/03/25 09:00 04/04/25 08:37 Enoxaparin 100 Mg/1ml Syr SQ 05/03/25 08:59 90 mg Q12 PATRICK Administration Famotidine 20 mg 02/25/25 14:54 04/04/25 08:35 Famotidine 20 Mg Tab PO 04/27/25 14:53 20 mg Q12H PRN Administration Dyspepsia Fluconazole 600 mg 04/01/25 09:00 04/04/25 08:37 Fluconazole 100 Mg Tab PO 05/01/25 08:59 600 mg QAM PATRICK Administration Folic Acid 1 mg 03/21/25 09:00 04/04/25 08:36 Folic Acid 1 Mg Tab PO 04/20/25 08:59 1 mg QAM PATRICK Administration Protocol Furosemide 30 mg 03/25/25 10:00 03/27/25 09:55 Furosemide Inj 20 Mg/2 Ml Vial IV 04/24/25 09:59 30 mg Q8H PATRICK Administration Heparin Sodium (Beef Lung) 5 ml 03/24/25 11:03 03/27/25 08:10 Heparin 10 Unit/Ml 5 Ml Flush FLUSH 04/23/25 11:02 5 ml PRN PRN Administration Flush Hydrocortisone 1 appln 03/22/25 15:23 03/23/25 08:21 Hydrocortisone Hc 2.5% Crm 30gm Tube EXT 04/21/25 15:22 1 appln BID PRN Administration Hemorrhoids Ceftriaxone Sodium 2,000 mg in 50 mls @ 100 mls/hr 03/22/25 09:00 04/04/25 09:42 Rocephin IV 04/28/25 23:59 Infused DAILY PATRICK Infusion Lactobacillus Acidophilus 1,250 mg 03/14/25 09:45 04/04/25 08:37 Advanced Probiotic 625 Mg Capsule PO 04/13/25 09:44 1,250 mg DAILY PATRICK Administration Linezolid 600 mg 04/01/25 09:00 04/04/25 08:36 Linezolid 600 Mg Tab PO 05/01/25 08:59 600 mg BID PATRICK Administration Magnesium Chloride 128 mg 03/24/25 21:00 04/04/25 14:07 Magnesium Chloride W/Calcium 64mg Delayed Rel Tab PO 04/23/25 20:59 128 mg TID PATRICK Administration Magnesium Hydroxide 30 ml 02/25/25 14:54 03/08/25 21:05 Magnesium Hydroxide Susp 30 Ml Udc PO 04/27/25 14:53 30 ml Q24H PRN Administration Constipation Melatonin 6 mg 03/17/25 02:21 03/26/25 20:42 Melatonin 3 Mg Tab PO 04/15/25 15:48 6 mg HS PRN Administration Sleep Metoprolol Succinate 25 mg 03/22/25 21:00 04/04/25 08:36 Metoprolol Succ 25mg Ext Rel Tab PO 04/21/25 20:59 25 mg BID PATRICK Administration Multivitamins 1 tab 02/26/25 09:00 04/04/25 08:37 Multivitamin Tab PO 04/28/25 08:59 1 tab DAILY PATRICK Administration Ondansetron HCl 4 mg 02/25/25 14:54 03/21/25 08:50 Ondansetron 4 Mg Od Tab PO 04/27/25 14:53 4 mg Q6H PRN Administration Nausea Pantoprazole Sodium 40 mg 02/28/25 10:30 04/04/25 08:36 Pantoprazole 40 Mg Tab PO 04/30/25 10:29 40 mg DAILYBL PATRICK Administration Polyethylene Glycol 17 gm 03/10/25 09:00 04/04/25 08:20 Polyethylene (Miralax) 17 Gm Pack PO 04/09/25 08:59 Not Given DAILY PATRICK Potassium Chloride 20 meq 04/04/25 11:55 04/04/25 14:07 Potassium Chloride Crtab 20 Meq Tabcr PO 05/04/25 11:54 20 meq BID PATRICK Administration Senna/Docusate Sodium 2 tab 02/25/25 21:00 04/03/25 22:00 Docusate Sodium/Senna 50/8.6mg Tab PO 04/27/25 20:59 Not Given HS PATRICK Thiamine HCl 200 mg 03/22/25 09:00 04/04/25 08:35 Thiamine Hcl 100 Mg Tab PO 04/16/25 15:44 200 mg TODAY@0900 PATRICK Administration Vitamin D 25 mcg 02/26/25 09:00 04/04/25 08:35 Cholecalciferol 25 Mcg (1000 Units) Tab PO 04/28/25 08:59 25 mcg DAILY PATRICK Administration
--- NOTE | 2025-04-05 03:53 | Magnetic Resonance Report ---
EXAM: MR brain wo con CLINICAL HISTORY: alterted mentantion TECHNIQUE: Multisequential and multiplanar images of the brain were submitted for review without contrast. 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 Scattered foci of increased T2/FLAIR signal abnormality are identified within the bilateral periventricular and subcortical white matter, and are most commonly associated with chronic small vessel ischemic disease. No focal parenchymal lesions are seen. No intracranial hemorrhage, mass effect, midline shift, extra-axial collection, or hydrocephalus is identified. Ventricles, sulci, and basal cisterns are symmetric and normal in size and configuration. Diffusion-weighted sequences show no evidence of acute ischemic infarction. Midline structures including the pituitary gland, corpus callosum, pineal region, and brainstem are unremarkable. The craniovertebral junction is within normal limits. No calvarial abnormalities are identified. The paranasal sinuses and mastoid air cells are clear. Orbital structures are unremarkable. Appropriate flow voids are present in the visualized intracranial vessels. IMPRESSION: 1. No acute ischemia, space occupying mass, or other acute intracranial pathology is demonstrated. 2. Chronic small vessel ischemic disease.-stable. 3. Diffuse cerebral atrophy.-stable. Electronically signed by Patrick Montalvo 04-05-2025 03:53 AM
[2025-04-05 05:53] LABS: Hematocrit (blood only) 22.8 % (37.0-47.0); Hemoglobin 7.3 g/dl (12.0-16.0); Immature Granulocytes # (auto) 0.61 K/uL (0.01-0.20); Immature Granulocytes % (auto) 4.3 %; Mean Corpuscular Hemoglobin 26.3 pg (25.0-34.0); Mean Corpuscular Volume 82.0 fL (80.0-100.0); Platelet Count 361 K/uL (130-400); RDW Standard Deviation 53.6 fL (36.4-46.3); Red Blood Count 2.78 M/uL (4.20-5.40); White Blood Count 14.14 K/ul (4.8-10.8)
[2025-04-05 06:09] LABS: Anion Gap 12.0 (3-11); Blood Urea Nitrogen 23.0 mg/dl (6-23); Calcium 8.7 mg/dl (8.6-10.3); Carbon Dioxide 17.0 mmol/L (21-32); Chloride 103.0 mmol/L (98-107); Creatinine Clr Calc Pharmacy 49.1 ml/min; Glucose 74.0 mg/dl (70-99(Fasting)); Potassium 3.5 mmol/L (3.5-5.1); Sodium 132.0 mmol/L (136-145)
[2025-04-05 07:07] LABS: RBC Morphology Unremarkable
[2025-04-05] MEDS: POTASSIUM CHLORIDE 40 MEQ in D5W AND NSS 1,000 ML IV SCH (08:31)
--- NOTE | 2025-04-05 10:37 | Nephrology Progress Note ---
Date of Service April 05, 2025 Assessment & Plan (1) Chronic hyponatremia: Plan: 1) Chronic hyponatremia: Plan: present prior to admission and mild. likely multifactorial and improved/stabilized; managed as SIADH. was on hctz prior to admission Na in low 130s consistently past 7 days will continue same management essentially with 1.5 L FR and target 90 gm daily protein intake FFR 1500 ml--not even drinking that much. BMP daily. Replace electrolytes as needed to keep K >4 and Mg >2. Will follow peripherally Admission and Anticipated Discharge Date Admission Date: February 25, 2025 Subjective no acute interval events. 4 bm charted; markedly diminished MS today; receiving D5NS w/ 20 mEq /L K x 1L. per pt "drank like crazy yesterday" though still struggled to eat; today neither eat nor drink Review of Systems 2 Review of Systems: Unobtainable due to reduced consciousness (pt very lethargic) Physical Exam 2 Constitutional: well developed, + obese, + altered mental status (dosing of continually;groans), + physical limitations (limited ROM limbs) and + frail appearing; no acute distress Eyes: EOM intact bilaterally ENMT: Ears: no external ear abnormality Nose: no external nose abnormality Mouth: + dry oral mucous membranes Neck: no nuchal rigidity Respiratory: normal respiratory effort Auscultation: + diminished lung sounds Cardiovascular: Rate/Rhythm: regular rhythm and + tachycardic (in 100s) E xtremities: no edema (including none peripheral) Gastrointestinal (Abdomen): Inspection/Auscultation: normal bowel sounds and + abdominal surgical drain present Percussion/Palpation: abdomen soft; abdomen nontender Skin: no rashes, warm and dry Neurologic: lethargic, moans Results & Data Vital Signs (Past 12 Hours) Vital Signs Temp Pulse Pulse Resp BP Pulse Ox O2 Del Method 04/05/25 08:00 106 H 04/05/25 08:00 Room Air 04/05/25 08:00 36.8 C 109 H 18 145/79 H 98 Room Air 04/05/25 02:52 36.6 C 92 H 16 149/74 H 96 Room Air 04/05/25 00:29 103 H 04/04/25 22:53 36.6 C 105 H 19 140/82 96 Room Air Laboratory Results 04/05/25 05:22 04/05/25 05:22
--- NOTE | 2025-04-05 10:41 | Hospitalist Progress Note ---
Date of Service April 05, 2025 Assessment & Plan (1) Acute blood loss anemia: (2) Other spondylosis with radiculopathy, lumbar region: (3) Tachycardia: (4) Leukocytosis: (5) Hyponatremia: (6) Hypertension: (7) Hyperlipidemia: (8) Rheumatoid arthritis: Plan Ms Kaur is a 69 year old female with PMH significant for hypertension, hyperlipidemia, rheumatoid arthritis, palpitations, history of bilateral pulmonary emboli, and lumbar spondylosis with radiculopathy who underwent L1-L5 decompression and fusion on 02/25/[address] Nova. We have been consulted for post operative medical management. Course complicated by spinal epidural abscess s/p most recent ID on 03/26. #Post-op spinal epidural abscess s/p washout #Spondylosis with radiculopathy, lumbar region -02/25 L1-L5 decompression and fusion by Dr. Nova complicated by fluid collection, fall with end plate fractures -03/04 Post-op lumbar Spine MRI due to ongoing BLE weakness and pain revealed 15x5.1x3.1 cm fluid collection R aspect of subcu fat extending from level L1 vertebra down to level opposite L5 vertebra -03/05 CT lumbar spine revealed end plate fracture L4 and pedicle fx of L5 on the right, prompting revision surgery on 03/07 -03/07 S/p removal of posterior segmental instrumentation L2 L4-L5, revision decompression with bilateral foraminotomies L4-L5, kyphoplasty L2 L4 and L5 vertebral bodies, revision fusion L4-L5, L5-S1 -03/07 Epidural space and lumbar fascia OR cultures growing E coli, Morganella, corynebacterium, and staph epidermidis -03/18 s/p I&D w/ Dr. Nova - culture grew Enterococcus faecium VRE and velia albicans -03/26 s/ I&D w/ Dr. Nova, serous fluid noted but no gross purulence per review of op report - Culture from 03/26-VRE Per prior hospitalist: "03/21- case discussed with ID once more today given sensitivities and BRENDAN levels. Per Dr. Sharp: "...Since the VRE has high BRENDAN >4 for daptomycin, I would recommend starting on oral linezolid 600 mg twice daily. Please continue on IV ceftriaxone and reduce the dose to 2 g once daily. Also, continue on oral fluconazole and increase the dose to 600 mg once daily. Anticipated end date for IV ceftriaxone will be April 28, 2025. For both linezolid and fluconazole, she will likely require to be on them for life if tolerated. Please make sure to send for weekly CBC and CMP for the next 8 weeks after discharge. I would recommend that the patient got the labs done at [facility] so that I can follow up on them closely..." PT/OT as tolerated Blood culture sent on 03/29/2025 as patient had low-grade fever; no growth. Haywood catheter was changed on 03/29/2025. Plan to follow up with infectious disease on May 29, 2025 Deliriumlikely related with compication of infection/hospital delirium/anesthesia. Had MRI of the brain on 03/24 which did not show any acute finding; chronic microvascular changes seen. CT head on 03/27 and 03/29 did not show any acute finding. Medication reviewed with pharmacy on 04/02/2025; no medication contributing to the delirium. Neurology consulted for comanagement on 04/05; they recommend MRI brain with and without contrast and EEG. Melatonin was discontinued as per recommendation. MRI brain with and without contrast did not show any acute findings. It showed chronic vessel ischemic disease. EEG is pending #Acute DVT/ Pulmonary Emboli Pt with hypoxia and tachycardia on 03/12, requiring 2-3L of oxygen, CTA chest obtained which noted pulmonary emboli bilaterally throughout the lungs EKG noting sinus tachycardia Echo ordered to confirm no heart strain 03/16 received 1 unit of pRBC and Hgb stable, FOBT negative Started on heparin on 03/27/2025; low-dose without bolus after discussion with orthospine. Switched over to therapeutic Lovenox on ; plan to continue that while she is at rehabswitch to p.o. DOAC's when getting discharged from rehab. Will need 6 months of anticoagulation. #Acute blood loss anemia 2/2 surgery as above, s/p transfusion on 03/16 Hemoglobin down trended to 6.8 on 03/28; another unit of packed RBC ordered. Hb gradually downtrended; likely results of blood draws and serosanguineous drainage #Acute on Chronic Hyponatremia, likely siadh Nephrology consulted, was on oral urea tablets. Was given Lasix initially which is stopped. Also on fluid restriction of 1.5 L Oral urea discontinued on 04/03/2025 #Hypomagnesemia- repleted #Pre-Diabetes Steroid induced hyperglycemia -> resolved A1C 6.3 ctm on bmp #Hypertension- antihypertensive on hold #Rheumatoid arthritis Hold leflunomide. To be restarted after antibiotics are completed. DVT prophylaxis lovenox Full code Time spent evaluating patient, direct bedside care, chart review, placing orders, interpretation of diagnostic studies, discussion with consultants, patient, and family members, as well as other required patient management activities is 50 minutes Please note the above document was generated using voice recognition software. It may contain grammatical, syntax or spelling errors. Any formal questions or concerns about the content, text or information contained within the body of this dictation should be directly addressed to the provider for clarification Admission and Anticipated Discharge Date Admission Date: February 25, 2025 Subjective Patient appears to be more lethargic today compared to previous day. PT and OT are at bedside; needed 3 person assist to get her out of bed to the chair. No fevers overnight. Vital signs appear stable Review of Systems Review of Systems: All systems reviewed & are unremarkable except as noted in Subjective Physical Exam Physical Exam: Constitutional:Appears tired, lethargic; able to answer question and follow commands appropriately. Respiratory: Bilateral vesicular breath sound. Cardiovascular: RRR, no murmur, no edema Vessels: no JVD or carotid bruit Chest: normal inspection of chest Abdomen: normal bowel sounds, soft, nontender, no hepatosplenomegaly Neurologic: PERRL, EOMI, accommodation nl, no face palsy, no dysarthria CN's II- XI intact bilaterally and moves all extremities Results & Data Results & Data Vital Signs (Past 12 Hours) Vital Signs Temp Pulse Pulse Resp BP Pulse Ox O2 Del Method 04/05/25 08:00 106 H 04/05/25 08:00 Room Air 04/05/25 08:00 36.8 C 109 H 18 145/79 H 98 Room Air 04/05/25 02:52 36.6 C 92 H 16 149/74 H 96 Room Air 04/05/25 00:29 103 H 04/04/25 22:53 36.6 C 105 H 19 140/82 96 Room Air
--- NOTE | 2025-04-05 11:03 | Orthopedic Progress Note ---
Date of Service April 05, 2025 Assessment & Plan (1) Spinal epidural abscess: Plan: At this time we will continue activity as tolerated. Appreciate neurology's input. Admission and Anticipated Discharge Date Admission Date: February 25, 2025 Subjective Patient in the chair at the bedside. She is delirious this morning and not cooperative with exam. Physical Exam Physical Exam: Patient opens her eyes to verbal stimuli but does not cooperate with neurologic exam. Results & Data Vital Signs (Past 12 Hours) Vital Signs Temp Pulse Pulse Resp BP Pulse Ox O2 Del Method 04/05/25 08:00 106 H 04/05/25 08:00 Room Air 04/05/25 08:00 36.8 C 109 H 18 145/79 H 98 Room Air 04/05/25 02:52 36.6 C 92 H 16 149/74 H 96 Room Air 04/05/25 00:29 103 H Queries Orthopedic Spine Acute Posthemorrhagic Anemia: Yes Obesity: Yes 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
[2025-04-05] MEDS: ACETAMINOPHEN 1,000 MG/100 ML VIAL IV PRN (11:36)
[2025-04-06] MEDS: MAGNESIUM SULFATE / D5W 1 GM/100 ML BAG IV SCH (02:36)
[2025-04-06] MEDS: METOPROLOL TARTRATE 1 MG/ML VIAL IV STA ×2 (02:37→23:04)
[2025-04-06] MEDS: POTASSIUM CHLORIDE CRTAB 20 MEQ TABCR PO STA (02:37)
[2025-04-06 03:03] LABS: Magnesium 1.6 mg/dl (1.7-2.4)
[2025-04-06] MEDS: METOPROLOL SUCC 25MG EXT REL TAB PO STA (06:00)
[2025-04-06 07:53] LABS: Hematocrit (blood only) 24.7 % (37.0-47.0); Hemoglobin 7.9 g/dl (12.0-16.0); Immature Granulocytes # (auto) 0.48 K/uL (0.01-0.20); Immature Granulocytes % (auto) 3.4 %; Mean Corpuscular Hemoglobin 26.7 pg (25.0-34.0); Mean Corpuscular Volume 83.4 fL (80.0-100.0); Platelet Count 422 K/uL (130-400); RDW Standard Deviation 56.9 fL (36.4-46.3); Red Blood Count 2.96 M/uL (4.20-5.40); White Blood Count 14.06 K/ul (4.8-10.8)
[2025-04-06 08:16] LABS: Polychromasia 1+; Spherocytes 1+
[2025-04-06 08:18] LABS: Anion Gap 10.0 (3-11); Blood Urea Nitrogen 24.0 mg/dl (6-23); Calcium 9.3 mg/dl (8.6-10.3); Carbon Dioxide 17.0 mmol/L (21-32); Chloride 109.0 mmol/L (98-107); Creatinine Clr Calc Pharmacy 46.4 ml/min; Glucose 81.0 mg/dl (70-99(Fasting)); Potassium 4.5 mmol/L (3.5-5.1); Sodium 136.0 mmol/L (136-145)
--- NOTE | 2025-04-06 08:39 | Orthopedic Progress Note ---
Date of Service April 06, 2025 Assessment & Plan (1) Spinal epidural abscess: Plan: At this time she still plans to get out of bed today. Work with therapy. Admission and Anticipated Discharge Date Admission Date: February 25, 2025 Subjective Patient is somewhat confused this morning. Physical Exam Physical Exam: On exam patient send in bed. She is requiring assistance to take her medication. Not cooperative with exam. Results & Data Vital Signs (Past 12 Hours) Vital Signs Temp Pulse Pulse Resp BP Pulse Ox O2 Del Method 04/06/25 07:20 36.9 C 110 H 20 105/78 95 Room Air 04/06/25 07:18 Room Air 04/06/25 07:11 109 H 04/06/25 03:03 36.8 C 128 H 22 123/57 L 93 Room Air 04/06/25 02:52 107 H 04/06/25 02:37 138 H 04/05/25 23:20 36.4 C L 106 H 14 133/64 98 Room Air 04/05/25 20:49 Room Air Queries Orthopedic Spine Acute Posthemorrhagic Anemia: Yes Obesity: Yes 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
--- NOTE | 2025-04-06 11:35 | Hospitalist Progress Note ---
Date of Service April 06, 2025 Assessment & Plan (1) Acute blood loss anemia: (2) Other spondylosis with radiculopathy, lumbar region: (3) Tachycardia: (4) Leukocytosis: (5) Hyponatremia: (6) Hypertension: (7) Hyperlipidemia: (8) Rheumatoid arthritis: Plan Ms Kaur is a 69 year old female with PMH significant for hypertension, hyperlipidemia, rheumatoid arthritis, palpitations, history of bilateral pulmonary emboli, and lumbar spondylosis with radiculopathy who underwent L1-L5 decompression and fusion on 02/25/[address] Nova. We have been consulted for post operative medical management. Course complicated by spinal epidural abscess s/p most recent ID on 03/26. #Post-op spinal epidural abscess s/p washout #Spondylosis with radiculopathy, lumbar region -02/25 L1-L5 decompression and fusion by Dr. Nova complicated by fluid collection, fall with end plate fractures -03/04 Post-op lumbar Spine MRI due to ongoing BLE weakness and pain revealed 15x5.1x3.1 cm fluid collection R aspect of subcu fat extending from level L1 vertebra down to level opposite L5 vertebra -03/05 CT lumbar spine revealed end plate fracture L4 and pedicle fx of L5 on the right, prompting revision surgery on 03/07 -03/07 S/p removal of posterior segmental instrumentation L2 L4-L5, revision decompression with bilateral foraminotomies L4-L5, kyphoplasty L2 L4 and L5 vertebral bodies, revision fusion L4-L5, L5-S1 -03/07 Epidural space and lumbar fascia OR cultures growing E coli, Morganella, corynebacterium, and staph epidermidis -03/18 s/p I&D w/ Dr. Nova - culture grew Enterococcus faecium VRE and velia albicans -03/26 s/ I&D w/ Dr. Nova, serous fluid noted but no gross purulence per review of op report - Culture from 03/26-VRE Per prior hospitalist: "03/21- case discussed with ID once more today given sensitivities and BRENDAN levels. Per Dr. Sharp: "...Since the VRE has high BRENDAN >4 for daptomycin, I would recommend starting on oral linezolid 600 mg twice daily. Please continue on IV ceftriaxone and reduce the dose to 2 g once daily. Also, continue on oral fluconazole and increase the dose to 600 mg once daily. Anticipated end date for IV ceftriaxone will be April 28, 2025. For both linezolid and fluconazole, she will likely require to be on them for life if tolerated. Please make sure to send for weekly CBC and CMP for the next 8 weeks after discharge. I would recommend that the patient got the labs done at [facility] so that I can follow up on them closely..." Blood culture sent on 03/29/2025 as patient had low-grade fever; no growth. Haywood catheter was changed on 03/29/2025. Plan to follow up with infectious disease on May 29, 2025 Low-grade temperature elevation noted on 04/05; persisting leukocytosis present; Discussed with Dr. Nova about possibly obtaining MRI of the lumbar spine to further evaluate for any infectious foci. Delirium Had MRI of the brain on 03/24 which did not show any acute finding; chronic microvascular changes seen. CT head on 03/27 and 03/29 did not show any acute finding. Medication reviewed with pharmacy on 04/02/2025; no medication contributing to the delirium. Neurology consulted for comanagement on 04/05; they recommend MRI brain with and without contrast and EEG. Melatonin was discontinued as per recommendation. RI brain with and without contrast did not show any acute findings. It showed chronic vessel ischemic disease. EEG is pending. #Acute DVT/ Pulmonary Emboli Pt with hypoxia and tachycardia on 03/12, requiring 2-3L of oxygen, CTA chest obtained which noted pulmonary emboli bilaterally throughout the lungs EKG noting sinus tachycardia Echo ordered to confirm no heart strain 03/16 received 1 unit of pRBC and Hgb stable, FOBT negative Started on heparin on 03/27/2025; low-dose without bolus after discussion with orthospine. Switched over to therapeutic Lovenox on ; switch back to heparin(on 04/06/2025) as another I and D may be planned in next couple of day. plan to anticoagulate for 3 to 6 months.Plan to switch over to Lovenox when patient is closer to discharge; she can be switched over to DOAC's at the rehab. #Acute blood loss anemia 2/2 surgery as above, s/p transfusion on 03/16 Hemoglobin down trended to 6.8 on 03/28; another unit of packed RBC ordered. Hb stable #Acute on Chronic Hyponatremia, likely siadh Nephrology consulted, was on oral urea tablets. Was given Lasix initially which is stopped. Also on fluid restriction of 1.5 L Oral urea discontinued on 04/03/2025 #Hypomagnesemia- repleted #Pre-Diabetes Steroid induced hyperglycemia -> resolved A1C 6.3 ctm on bmp #Hypertension- antihypertensive on hold #Rheumatoid arthritis Hold leflunomide. To be restarted after antibiotics are completed. DVT prophylaxis lovenox Full code Updated patient's son Alejandro over the phone. Provided updates since last time we had talked. Discussed with Dr. Nova over the phone as well; he is also planning reach out to Alejandro to discuss further. Time spent evaluating patient, direct bedside care, chart review, placing orders, interpretation of diagnostic studies, discussion with consultants, patient, and family members, as well as other required patient management activities is 75 minutes Please note the above document was generated using voice recognition software. It may contain grammatical, syntax or spelling errors. Any formal questions or concerns about the content, text or information contained within the body of th is dictation should be directly addressed to the provider for clarification Admission and Anticipated Discharge Date Admission Date: February 25, 2025 Subjective Patient seen and examined at bedside. She is on a chair on the side of her bed; mentation has not changed. She is still lethargic. She is able to open her eyes on verbal command but falls back asleep. Review of Systems Review of Systems: All systems reviewed & are unremarkable except as noted in Subjective Physical Exam Physical Exam: Constitutional:Appears tired, lethargic;able to answer some of the questions Respiratory: Bilateral vesicular breath sound. Cardiovascular: RRR, no murmur, no edema Vessels: no JVD or carotid bruit Chest: normal inspection of chest Abdomen: normal bowel sounds, soft, nontender, no hepatosplenomegaly Neurologic: PERRL, EOMI, accommodation nl, no face palsy, no dysarthria CN's II- XI intact bilaterally Results & Data Results & Data Vital Signs (Past 12 Hours) Vital Signs Temp Pulse Pulse Resp BP Pulse Ox O2 Del Method 04/06/25 11:05 36.9 C 117 H 20 119/92 96 Room Air 04/06/25 07:20 36.9 C 110 H 20 105/78 95 Room Air 04/06/25 07:18 Room Air 04/06/25 07:11 109 H 04/06/25 03:03 36.8 C 128 H 22 123/57 L 93 Room Air 04/06/25 02:52 107 H 04/06/25 02:37 138 H
[2025-04-06] MEDS: HEPARIN 25000 UNIT/500 ML D5W 25,000 UNITS/500 ML BAG IV SCH (20:44)
[2025-04-06] MEDS: METOPROLOL SUCC 25MG EXT REL TAB PO SCH (20:44)
[2025-04-06] MEDS ORDERED: Heparin IV Adult Wt-Based Standard *NO* INITIAL Bolus Protocol IV SCH (21:00)
[2025-04-06 21:17] LABS: INR 1.5 (0.9-1.1); Partial Thromboplastin Time 32 Seconds (21-31); Prothrombin Time 15.4 Seconds (9.0-12.0)
[2025-04-06] MEDS: ACETAMINOPHEN 1,000 MG/100 ML VIAL IV STA (23:03)
[2025-04-06 23:09] LABS: Magnesium 2.2 mg/dl (1.7-2.4)
[2025-04-07 00:53] LABS: Appearance Urine Cloudy (Clear); Bacteria Urine Automated None Seen (None Seen); Cast Urine Automated >20 /lpf (0-2); Glucose Urine UA Negative (Negative); RBC Urine Automated 0-2 /hpf (0-2)
--- NOTE | 2025-04-07 01:37 | CT Scan Report ---
EXAM: CT head/brain wo con CLINICAL HISTORY: AMS. TECHNIQUE: Axial non-contrast CT scan of the brain was performed from the skull base to the high parietal region with coronal and sagittal reformats. One of the following dose reduction techniques was utilized for this exam: Automated exposure control, adjustment of the mA and/or kV according to patient size, and use of iterative reconstruction. COMPARISON: MRI dated 04/05/[address] dated 03/29/2025. FINDINGS: Brain Parenchyma: Hypodense areas noted in the subcortical and deep white matter bilaterally, suggestive of microvascular ischemic changes. Chronic lacunar infarct in the left basal ganglia. Normal attenuation of the cerebral hemispheres, cerebellum, and brainstem. No evidence of acute infarct, hemorrhage, or mass effect. Ventricular System: The ventricular system, cortical sulci, and basal cisterns are prominent and consistent with senile changes. Significant ventricular system dilatation, which is inappropriate with the involutional changes, along with tyler-ventricular deep white matter diffuse hypoattenuation suggesting CSF permiation; findings suggesting benign increase intracranial tension/ idiopathic intracranial hypertension, to be clinically correlated. No evidence of subarachnoid hemorrhage or extra-axial fluid collections. Cerebellum and Brainstem: No masses, lesions, or areas of abnormal density. Orbits: Normal appearance of the globes, optic nerves, and extraocular muscles. No evidence of orbital masses or abnormal density. Sinuses: Clear paranasal sinuses. No evidence of sinusitis or mucosal thickening. Mastoid Air Cells: Clear mastoid air cells. No evidence of mastoiditis. Skull: Normal skull morphology. IMPRESSION: 1. No evidence of acute intracranial event. 2. Age-related involutional and microvascular ischemic changes (Unchanged). 3. Significant ventricular system dilatation, which is inappropriate with the involutional changes, along with tyler-ventricular deep white matter diffuse hypoattenuation suggesting CSF permiation; findings suggesting idiopathic intracranial hypertension, to be clinically correlated. (Unchanged) 4. No other change since the last scan. Electronically signed by Neftali Lundberg 04-07-2025 01:37 AM
[2025-04-07 06:06] LABS: Hematocrit (blood only) 22.9 % (37.0-47.0); Hemoglobin 7.2 g/dl (12.0-16.0); Immature Granulocytes # (auto) 0.44 K/uL (0.01-0.20); Immature Granulocytes % (auto) 2.9 %; Mean Corpuscular Hemoglobin 26.7 pg (25.0-34.0); Mean Corpuscular Volume 84.8 fL (80.0-100.0); Platelet Count 379 K/uL (130-400); RDW Standard Deviation 58.6 fL (36.4-46.3); Red Blood Count 2.70 M/uL (4.20-5.40); White Blood Count 15.40 K/ul (4.8-10.8)
[2025-04-07 06:22] LABS: Anion Gap 11.0 (3-11); Blood Urea Nitrogen 30.0 mg/dl (6-23); Calcium 9.5 mg/dl (8.6-10.3); Carbon Dioxide 16.0 mmol/L (21-32); Chloride 110.0 mmol/L (98-107); Creatinine Clr Calc Pharmacy 38.0 ml/min; Glucose 90.0 mg/dl (70-99(Fasting)); Potassium 4.7 mmol/L (3.5-5.1); Sodium 137.0 mmol/L (136-145)
[2025-04-07 07:02] LABS: Anisocytosis Present; Polychromasia 1+
--- NOTE | 2025-04-07 07:31 | Orthopedic Progress Note ---
Date of Service April 07, 2025 Assessment & Plan (1) Other spondylosis with radiculopathy, lumbar region: Plan: Patient is stable at this point. There is consideration of performing advanced imaging studies to see if there are any other pockets the need to be surgically decompressed. She has episodes of delirium and is being followed for this as well. We will continue with pain control measures and mobilization efforts. Will see how she does next week. Admission and Anticipated Discharge Date Admission Date: February 25, 2025 Subjective Patient seen bedside in room 202. She is a bit confused this morning. She does respond to questions however. States her pain is about the same as it has been. Both legs feel weak and she is having a hard time functioning and performing with physical therapy. She denies any other numbness, tingling, or paresthesias. Physical Exam Physical Exam: On exam she is arousable. She answers questions when asked. She is somewhat disoriented. She is able to lift her legs to gravity. She cannot roll to examine her dressing. Results & Data Vital Signs (Past 12 Hours) Vital Signs Temp Pulse Pulse Resp BP BP Pulse Ox 04/07/25 07:06 93 H 04/07/25 04:23 108 H 04/07/25 02:55 36.8 C 85 14 104/68 95 04/06/25 23:43 108 H 04/06/25 23:14 108 H 131/81 04/06/25 23:08 36.9 C 123 H 16 141/79 H 93 04/06/25 23:04 120 H 141/79 H 04/06/25 21:40 04/06/25 21:00 119 H O2 Del Method 04/07/25 07:06 04/07/25 04:23 04/07/25 02:55 Room Air 04/06/25 23:43 04/06/25 23:14 04/06/25 23:08 Room Air 04/06/25 23:04 04/06/25 21:40 Room Air 04/06/25 21:00
[2025-04-07] MEDS: D5W AND NSS 1,000 ML IV SCH (07:36)
--- NOTE | 2025-04-07 07:39 | Hospitalist Progress Note ---
Date of Service April 07, 2025 Assessment & Plan (1) Acute blood loss anemia: (2) Other spondylosis with radiculopathy, lumbar region: (3) Tachycardia: (4) Leukocytosis: (5) Hyponatremia: (6) Hypertension: (7) Hyperlipidemia: (8) Rheumatoid arthritis: Plan Ms Kaur is a 69 year old female with PMH significant for hypertension, hyperlipidemia, rheumatoid arthritis, palpitations, history of bilateral pulmonary emboli, and lumbar spondylosis with radiculopathy who underwent L1-L5 decompression and fusion on 02/25/[address] Nova. We have been consulted for post operative medical management. Course complicated by spinal epidural abscess s/p most recent ID on 03/26. #Post-op spinal epidural abscess s/p washout #Spondylosis with radiculopathy, lumbar region -02/25 L1-L5 decompression and fusion by Dr. Nova complicated by fluid collection, fall with end plate fractures -03/04 Post-op lumbar Spine MRI due to ongoing BLE weakness and pain revealed 15x5.1x3.1 cm fluid collection R aspect of subcu fat extending from level L1 vertebra down to level opposite L5 vertebra -03/05 CT lumbar spine revealed end plate fracture L4 and pedicle fx of L5 on the right, prompting revision surgery on 03/07 -03/07 S/p removal of posterior segmental instrumentation L2 L4-L5, revision decompression with bilateral foraminotomies L4-L5, kyphoplasty L2 L4 and L5 vertebral bodies, revision fusion L4-L5, L5-S1 -03/07 Epidural space and lumbar fascia OR cultures growing E coli, Morganella, corynebacterium, and staph epidermidis -03/18 s/p I&D w/ Dr. Nova - culture grew Enterococcus faecium VRE and velia albicans -03/26 s/ I&D w/ Dr. Nova, serous fluid noted but no gross purulence per review of op report - Culture from 03/26-VRE Per prior hospitalist: "03/21- case discussed with ID once more today given sensitivities and BRENDAN levels. Per Dr. Sharp: "...Since the VRE has high BRENDAN >4 for daptomycin, I would recommend starting on oral linezolid 600 mg twice daily. Please continue on IV ceftriaxone and reduce the dose to 2 g once daily. Also, continue on oral fluconazole and increase the dose to 600 mg once daily. Anticipated end date for IV ceftriaxone will be April 28, 2025. For both linezolid and fluconazole, she will likely require to be on them for life if tolerated. Please make sure to send for weekly CBC and CMP for the next 8 weeks after discharge. I would recommend that the patient got the labs done at [facility] so that I can follow up on them closely..." Blood culture sent on 03/29/2025 as patient had low-grade fever; no growth. Haywood catheter was changed on 03/29/2025. Plan to follow up with infectious disease on May 29, 2025 Low-grade temperature elevation noted on 04/05; persisting leukocytosis present; Discussed with Dr. Nova on 04/07/2025 about possibly obtaining MRI of the lumbar spine or I and D to further evaluate for any infectious foci. Dose of fluconazole decrease to 300mg once a day based on kidney function on 04/06/2025. Delirium Had MRI of the brain on 03/24 which did not show any acute finding; chronic microvascular changes seen. CT head on 03/27 and 03/29 did not show any acute finding. Medication reviewed with pharmacy on 04/02/2025; no medication contributing to the delirium. Neurology consulted for comanagement on 04/05; they recommend MRI brain with and without contrast and EEG. Melatonin was discontinued as per recommendation. RI brain with and without contrast did not show any acute findings. It showed chronic vessel ischemic disease. EEG is pending.Continue delirium precautions Acute Kidney Injury- Creatinine noted to be increasing in the last couple of days gradually to 1.55 today. Slightly secondary to patient's decreased oral intake. Urine output also has declined. Discussed with nephrology to reevaluate. She started on D5 NS. Will continue to monitor BMP daily. Avoid nephrotoxic agent. Continue Haywood catheter for strict input output monitoring #Acute DVT/ Pulmonary Emboli Pt with hypoxia and tachycardia on 03/12, requiring 2-3L of oxygen, CTA chest obtained which noted pulmonary emboli bilaterally throughout the lungs EKG noting sinus tachycardia Echo ordered to confirm no heart strain 03/16 received 1 unit of pRBC and Hgb stable, FOBT negative Started on heparin on 03/27/2025; low-dose without bolus after discussion with orthospine. Switched over to therapeutic Lovenox on ; switch back to heparin(on 04/06/2025) as another I and D may be planned in next couple of day. plan to anticoagulate for 3 to 6 months.Plan to switch over to Lovenox when patient is closer to discharge; she can be switched over to DOAC's at the rehab. #Acute blood loss anemia 2/2 surgery as above, s/p transfusion on 03/16 Hemoglobin down trended to 6.8 on 03/28; another unit of packed RBC ordered. Hemoglobin slightly downtrending gradually over the last 1 week; no sign or symptom of bleeding. Likely result of blood draws. Anticipate she will need another unit of packed RBC in next few days. #Acute on Chronic Hyponatremia, likely siadh Nephrology consulted, was on oral urea tablets. Was given Lasix initially which is stopped. Also on fluid restriction of 1.5 L Oral urea discontinued on 04/03/2025 #Pre-Diabetes Steroid induced hyperglycemia -> resolved A1C 6.3 #Hypertension- antihypertensive on hold #Rheumatoid arthritis Hold leflunomide. To be restarted after antibiotics are completed. DVT prophylaxis heparin Full code Time spent evaluating patient, direct bedside care, chart review, placing orders, interpretation of diagnostic studies, discussion with consultants, patient, and family members, as well as other required patient management activities is 60 minutes Please note the above document was generated using voice recognition software. It may contain grammatical, syntax or spelling errors. Any formal questions or concerns about the content, text or information contained within the body of this dictation should be directly addressed to the provider for clarification Admission and Anticipated Discharge Date Admission Date: February 25, 2025 Subjective Patient seen at bedside. Her mentation is slightly better compared to previous days. She is awake and able to eat some of her breakfast. Review of Systems Review of Systems: All systems reviewed & are unremarkable except as noted in Subjective Physical Exam Physical Exam: Constitutional:Plan to do it next coming days based on patient's clinical improvement. Respiratory: Bilateral vesicular breath sound. Cardiovascular: RRR, no murmur, no edema Vessels: no JVD or carotid bruit Chest: normal inspection of chest Abdomen: normal bowel sounds, soft, nontender, no hepatosplenomegaly Neurologic: PERRL, EOMI, accommodation nl, no face palsy, no dysarthria CN's II- XI intact bilaterally Results & Data Results & Data Vital Signs (Past 12 Hours) Vital Signs Temp Pulse Pulse Resp BP BP Pulse Ox 04/07/25 07:06 93 H 04/07/25 04:23 108 H 04/07/25 02:55 36.8 C 85 14 104/68 95 04/06/25 23:43 108 H 04/06/25 23:14 108 H 131/81 04/06/25 23:08 36.9 C 123 H 16 141/79 H 93 04/06/25 23:04 120 H 141/79 H 04/06/25 21:40 04/06/25 21:00 119 H O2 Del Method 04/07/25 07:06 04/07/25 04:23 04/07/25 02:55 Room Air 04/06/25 23:43 04/06/25 23:14 04/06/25 23:08 Room Air 04/06/25 23:04 04/06/25 21:40 Room Air 04/06/25 21:00
[2025-04-07] MEDS: FLUCONAZOLE 100 MG TAB PO SCH (08:26)
[2025-04-07 08:38] LABS: ANTI-Xa, UFH(UnfractionatedHep 0.97 IU/ml (0.3-0.7)
--- NOTE | 2025-04-07 12:04 | Nephrology Progress Note ---
Date of Service April 07, 2025 Assessment & Plan (1) Acute renal failure: Plan: Stage 2 borderline oliguric JAQUI, worsening. baseline creatinine 0.8-1.0 with significant lability during her extended hospital stay. Since April 05 creatinine has up trended to 1.2 and today up to 1.6. W/ nagma >> nagma likely from combo of NS on 04/05 plus BM x 4 same day. still having loose/ smears 2 most days per RN with delirium and poor po >> both seem chronic this admission not likely med-induced > reviewed medications w/ RPh > lasix on hold since 03/27; last toradol or nsaid dosing in February; started zyvox 04/01; on ceftriaxone consistently since February. no recent IV contrast or hemodynamic instability; MS and po intake poor but this has been a consistent concern WBC have been elevated since early March and higher/more persistent mid teens past 72 hrs >suggest renal imaging > defer to primary to order; CT may be useful to eval; could consider c/a/p >if no chest CT then CXR pls >suggest will culture > urine, blood; if applicable wound >exchange rincon catheter >>repeat hepatic function panel and check ammonia levels >cont strict I/O >trial of 1 L of D5W w/ 150 mEQ Na bic; defer to hospitalist to order if in agreement -daily bmp Care d/w Dr Santos via TText re cultures, imaging, rincon exch, IVF: we are in agreement (2) Chronic hyponatremia: Plan: 1) resolved; present prior to admission and mild. likely multifactorial and improved/stabilized; managed as SIADH. was on hctz prior to admission Na in low 130s consistently past 7 days will continue same management essentially with 1.5 L FR and target 90 gm daily protein intake FFR 1500 ml--not even drinking that much. BMP daily. Replace electrolytes as needed to keep K >4 and Mg >2. Admission and Anticipated Discharge Date Admission Date: February 25, 2025 Subjective Asked by primary service to come back and reevaluate the patient due to worsening renal function with increasing creatinine and declining urine output. indwelling rincon now, recently replaced; minimal po d/t mental status ongoing Review of Systems 2 Review of Systems: Unobtainable due to reduced consciousness (altered MS) Physical Exam 2 Constitutional: well developed, + obese, + altered mental status (dosing off continually;wakens briefly; not verbal, not answering ?), + physical limitations (limited ROM limbs; in radha) and + frail appearing; no acute distress Eyes: EOM intact bilaterally ENMT: Ears: no external ear abnormality Nose: no external nose abnormality Mouth: + dry oral mucous membranes Neck: no nuchal rigidity Respiratory: normal respiratory effort Auscultation: + diminished lung sounds Cardiovascular: Rate/Rhythm: regular rhythm and + tachycardic (in 100s) E xtremities: no edema (including none peripheral) Gastrointestinal (Abdomen): Inspection/Auscultation: normal bowel sounds and + abdominal surgical drain present Percussion/Palpation: abdomen soft; abdomen nontender Skin: no rashes, warm and dry Neurologic: some shivering at times Results & Data Vital Signs (Past 12 Hours) Vital Signs Temp Pulse Pulse Resp BP Pulse Ox O2 Del Method 04/07/25 11:47 36.5 C 89 18 128/63 98 Room Air 04/07/25 07:42 36.6 C 93 H 16 112/83 99 Room Air 04/07/25 07:30 Room Air 04/07/25 07:06 93 H 04/07/25 04:23 108 H 04/07/25 02:55 36.8 C 85 14 104/68 95 Room Air Laboratory Results 04/07/25 05:20 04/07/25 05:20 UA > cloudy 1024 pH 5 dark yellow > 1+ protein, ketones; trace blood; no bacteria; +granular casts
[2025-04-07] MEDS ORDERED: STAT IV/IM STA (12:49)
[2025-04-07] MEDS: SODIUM BICARBONATE 8.4% 150 MEQ in DEXTROSE 5% 1,000 ML IV SCH (13:29)
[2025-04-07 13:53] LABS: Alanine Aminotransferase 25.0 U/L (7-52); Alkaline Phosphatase 481.0 U/L (34-104); Bilirubin,Total 0.4 mg/dl (0.2-1.0); Total Protein 5.5 gm/dl (6.0-8.3)
[2025-04-07 16:38] LABS: ANTI-Xa, UFH(UnfractionatedHep 0.60 IU/ml (0.3-0.7)
--- NOTE | 2025-04-07 17:06 | Ultrasound Report ---
Renal ultrasound History: Acute renal failure Comparison: None Technique: Grayscale and color Doppler ultrasound of the kidneys and urinary bladder performed Findings: Right kidney: The right kidney measures 10.5 cm in length. No visualized mass or hydronephrosis. Simple 2.3 cm inferior right renal cyst. Left kidney: The left kidney measures 10.7 cm in length. No visualized mass or hydronephrosis. A Haywood catheter decompresses the urinary bladder. Impression: Normal renal ultrasound. Electronically signed by Mina Holder 04-07-2025 5:05 PM
--- NOTE | 2025-04-07 18:07 | XRay Report ---
Chest radiograph, one view History: Rule out pneumonia Comparison: None Findings: Single AP view of the chest performed. No focal consolidation or pleural effusion. No pneumothorax. The cardiomediastinal silhouette is within normal limits. Normal pulmonary vascularity. No evidence for lymphadenopathy. No visualized bony or soft tissue abnormality. Impression: Normal chest radiograph Electronically signed by Mina Holder 04-07-2025 6:06 PM
[2025-04-07] MEDS: ALTEPLASE, RECOMBINANT 1 MG/ML 2ML VIAL INSTIL ONE (19:14)
[2025-04-07] MEDS: ALBUMIN 25% 25 GM/100 ML VIAL IV ONE (23:32)
[2025-04-08 05:43] LABS: Hematocrit (blood only) 20.3 % (37.0-47.0); Hemoglobin 6.5 g/dl (12.0-16.0); Mean Corpuscular Hemoglobin 26.4 pg (25.0-34.0); Mean Corpuscular Volume 82.5 fL (80.0-100.0); Platelet Count 327 K/uL (130-400); RDW Standard Deviation 55.9 fL (36.4-46.3); Red Blood Count 2.46 M/uL (4.20-5.40); White Blood Count 12.76 K/ul (4.8-10.8)
--- NOTE | 2025-04-08 05:53 | Communication Note ---
Date of Service: April 08, 2025 Notified by RN of a.m. hemoglobin of 6.5 from 7.2 yesterday. Patient without unusual pain complaints. No overt bleeding as per RN. Heme positive dark stool on rectal exam done at bedside. AP Progressive anemia UGIB Ongoing IV heparin Rx for DVT Transfuse PRBC to maintain hemoglobin of at least 7 Hold heparin IV PPI GI consult re: UGIB N.p.o. in anticipation of endoscopy
[2025-04-08] MEDS ORDERED: SODIUM CHLORIDE 0.9% 100 ML IV PRN ×2 (05:54→07:21)
[2025-04-08 05:55] LABS: Anion Gap 10.0 (3-11); Blood Urea Nitrogen 29.0 mg/dl (6-23); Calcium 9.6 mg/dl (8.6-10.3); Carbon Dioxide 20.0 mmol/L (21-32); Chloride 109.0 mmol/L (98-107); Creatinine Clr Calc Pharmacy 45.6 ml/min; Glucose 86.0 mg/dl (70-99(Fasting)); Potassium 4.0 mmol/L (3.5-5.1); Sodium 139.0 mmol/L (136-145)
[2025-04-08] MEDS: ALBUMIN 25% 12.5 GM/50 ML VIAL IV ONE (05:56)
[2025-04-08 05:57] LABS: Immature Granulocytes # (auto) 0.22 K/uL (0.01-0.20); Immature Granulocytes % (auto) 1.7 %; RBC Morphology Unremarkable
[2025-04-08 06:08] LABS: ANTI-Xa, UFH(UnfractionatedHep 0.41 IU/ml (0.3-0.7)
[2025-04-08] MEDS: OPTIRAY 320 100ml IV ONE ×2 (07:53→16:55)
--- NOTE | 2025-04-08 08:17 | CT Scan Report ---
ABDOMEN AND PELVIS CT WITH IV CONTRAST CT DOSE: 1476.55 mGy.cm HISTORY: GI bleed, bump in creatinine TECHNIQUE: Multiaxial CT images of the abdomen and pelvis were performed following the IV administrat ion of 90 cc of Optiray, A dose lowering technique was utilized adhering to the principles of ALARA. COMPARISON STUDY: 03/16/2025 FINDINGS: ABDOMEN: There are small gallstones without evidence of acute cholecystitis. Liver, spleen, pancreas, and adrenal glands are unremarkable. There are a few stable right renal cysts. There is no hydroneph rosis or renal calculi bilaterally. There are scattered atherosclerotic calcifications. No abdominal aortic aneurysm. Pelvis: Uterus and adnexa are grossly unremarkable. Haywood catheter is present. Urinary bladder is dec ompressed. Normal appendix. No bowel inflammation or obstruction. No free fluid, free air, or abscess . No enlarged adenopathy. There is stable posterior metallic fusion from L2 through S1. The prior flu id collection in the soft tissues posterior to the lumbar fusion is improved with a small amount of r esidual gas and fluid. IMPRESSION: 1. No acute findings seen. 2. Small collection of gas and fluid in the soft tissues posterior to the lumbar fusion has improved. 3. Otherwise as described. ACT 112: Negative or not required by law. The above report was generated using voice recognition software. It may contain grammatical, syntax o r spelling errors. Electronically signed by: Sina Weber M.D. 04/08/2025 8:15 AM
--- NOTE | 2025-04-08 09:14 | Magnetic Resonance Report ---
EXAM: MR lumbar spine wo con CLINICAL HISTORY: Post op back pain. TECHNIQUE: MRI of the lumbar spine was performed without the administration of intravenous contrast. Sequences obtained include sagittal T1-weighted, T2-weighted, STIR (Short Tau Inversion Recovery), and axial T2-weighted sequences. COMPARISON: Comparison is made with prior MRI lumbar spine dated 03/04/2025. FINDINGS: Redemonstration of L2/3 down to L4/5 spinolaminectomies with transpedicular fixation using plate and screws, as well as metallic interbody disc cages with interval posterior dural ectasia. The metallic hardware induces inevitable Blooming (ferromagnetic) artifacts, degrading the image quality. Postoperative changes are again seen, showing scarring of the paraspinal muscles with edema of the L1-L2, L2-L3, and L4-L5 intervertebral discs. Resolution of the prior large subcutaneous fluid collection and its tongue-like extension opposite L4/5. Vertebral Alignment: Mild retrolithesis at L4/5, otherwise normal alignment of the lumbar spine without evidence of fracture or malalignment. Stable mild dextroconvex lumbar scoliosis; angle measures 10.8°. Vertebral Bodies and Intervertebral Discs: The scanned intervertebral discs show variable degrees of degeneration, denoted by low signal intensity on T2 WI with a variable height reduction. Multiple Schmoral's nodes are seen at the lower thoracic and upper lumbar vertebral end plates. Maintained vertebral body heights. [id number]-[id number] analysis: T12-L1: There is no focal disc pathology, central canal stenosis, or neural foraminal stenosis. L1-L2: There is A 3.1 mm diffuse disc bulge indenting the thecal sac, inducing mild central canal stenosis and mild bilateral neural foraminal stenosis with impingement of the emerging nerve roots. Buckled ligamenta flava and arthropathic facet joints augment effects. L2-L3: Metallic hardware is seen in situ. The residual disc compromises the subarticular recesses and neural foramina. L3-L4: There is Adequate surgical decompression. L4-L5: Metallic hardware is seen in situ. A 3.1 mm residual disc bulge encroaching upon the thecal sac and neural foramina. L5-S1: There is no focal disc pathology, central canal stenosis, or neural foraminal stenosis. Hypertrophic arthropathy of the facet joints is seen more on the right side, with consequent compromise of the neural foramina. More on the right side. The lower dorsal spinal cord, conus medullaris, and cauda equina nerve roots are unremarkable. Paravertebral soft tissue is unremarkable. No developmental canal stenosis. IMPRESSION: 1. Interval resolution of the prior large subcutaneous fluid collection. 2. Redemonstration of L2/3 down to L4/5 spinolaminectomies with interval posterior dural ectasia. 3. Other findings remain stable since prior as detailed. No new findings of spondylodiscitis or arachnoiditis. Electronically signed by Neftali Lundberg 04-08-2025 09:14 AM
--- NOTE | 2025-04-08 11:26 | Nephrology Progress Note ---
Date of Service April 08, 2025 Assessment & Plan (1) Acute renal failure: Plan: Stage 2 borderline oliguric JAQUI, improved some today >> behaving as at least in part prerenal though granular casts in UA suggest more than immediately reversible damage. baseline creatinine 0.8-1.0 with significant lability during her extended hospital stay. Since April 05 creatinine has up trended to 1.2; on 04/07 peaked at 1.6, down to 1.3 today. W/ improving nagma >> nagma likely from combo of NS on 04/05 plus BM x 4 same day. with delirium and poor po >> both seem chronic this admission not likely med-induced > reviewed medications w/ RPh > lasix on hold since 03/27; last toradol or nsaid dosing in February; started zyvox 04/01; on ceftriaxone consistently since February. no recent IV contrast or hemodynamic instability; MS and po intake poor but this has been a consistent concern WBC have been elevated since early March and higher/more persistent mid teens past [address] a/p w/o new renal findings CXr unremarkable as are 04/07 hepatic function panel and ammonia s/p 04/07 rincon exchange >f/u pending will culture >cont strict I/O >for pRBC today given drop in hgb>>suggest 20 mg lasix post IV and then IVF>>0.5-1 L of D5W w/ 75 mEq/L sodium bicarb -daily bmp Care d/w Dr Santos via TText re lasix and IVF: we are in agreement (2) Acute blood loss anemia: Plan: anemia progressive over past several days >> hgb 8.7 one week ago; 6.5 this AM >for pRBC and reeval (3) Chronic hyponatremia: Plan: 1) resolved; present prior to admission and mild. likely multifactorial and improved/stabilized; managed as SIADH. was on hctz prior to admission Na in low 130s consistently past 7 days will continue same management essentially with 1.5 L FR and target 90 gm daily protein intake FFR 1500 ml--not even drinking that much. BMP daily. Replace electrolytes as needed to keep K >4 and Mg >2. Admission and Anticipated Discharge Date Admission Date: February 25, 2025 Subjective getting pRBC today for dropp in hgb; Review of Systems 2 Review of Systems: All systems reviewed & are unremarkable except as noted in Subjective Physical Exam 2 Constitutional: well developed, + obese, + altered mental status (answr monosylable to unpleasant stim), + physical limitations (limited ROM limbs; in radha) and + frail appearing; no acute distress Eyes: EOM intact bilaterally ENMT: Ears: no external ear abnormality Nose: no external nose abnormality Mouth: + dry oral mucous membranes Neck: no nuchal rigidity Respiratory: normal respiratory effort Auscultation: + diminished lung sounds Cardiovascular: Rate/Rhythm: regular rhythm and + tachycardic (in 100s) E xtremities: no edema (including none peripheral) Gastrointestinal (Abdomen): Inspection/Auscultation: normal bowel sounds and + abdominal surgical drain present Percussion/Palpation: abdomen soft; abdomen nontender Skin: no rashes, warm and dry Results & Data Vital Signs (Past 12 Hours) Vital Signs Temp Pulse Pulse Resp BP BP Pulse Ox 04/08/25 10:34 36.8 C 112 H 14 144/90 H 97 04/08/25 10:24 36.9 C 113 H 14 146/89 H 93 04/08/25 09:24 36.6 C 109 H 16 162/90 H 95 04/08/25 08:54 36.6 C 108 H 14 144/94 H 95 04/08/25 08:39 36.5 C 106 H 14 152/72 H 99 04/08/25 08:29 04/08/25 08:14 36.8 C 105 H 14 142/72 H 94 04/08/25 07:16 103 H 04/08/25 04:08 37.2 C 110 H 18 115/77 95 O2 Del Method 04/08/25 10:34 04/08/25 10:24 04/08/25 09:24 04/08/25 08:54 04/08/25 08:39 04/08/25 08:29 Room Air 04/08/25 08:14 04/08/25 07:16 04/08/25 04:08 Room Air Laboratory Results 04/08/25 05:21 04/08/25 05:[address] a/p unremarkable
--- NOTE | 2025-04-08 11:56 | Gastrointestinal Consultation ---
Date of Consultation April 08, 2025 Assessment & Plan (1) Acute blood loss anemia: -Continue IV Protonix gtt -Continue to monitor H/H -Await repeat labs since transfusion of PRBCs -No overt bleeding, but heme positive stool sample taken. Discussed with patient's at bedside. Would opt to monitor conservatively with IV PPI at present due to her delirium. Supervising Physician Co-Signing Physician Notes Agree with DANISHA Kevin as above Patient unable to answer any questions at the present time Abd: Soft, NT, ND, +BS Continue current therapy and supportive care Continue IV PPI therapy No plans for invasive GI testing at this time. History of Present Illness Reason for Consultation: Anemia Attending Physician: Adriel Nova DO History of Present Illness Patient is a 69 yo female hospitalized with a spinal epidural abscess s/p yuri soto as well as DVT/PE, JAQUI, & delirium. Patient is confused this morning. provides much of the history. Patient's H/H dropped this morning to 6.5/20.3. No overt GI bleeding. Stool was heme positive. BUN/Cr 29/1.29. HR 112. CT abdomen/pelvis this AM without GI abnormalities. She was on a heparin drip previously but this is on hold. I do not have dates of her last colonoscopy/EGD. reports her mental status is worse than normal. No personal history of PUD or other significant GI issues. Allergies Allergy/AdvReac Type Severity Reaction Status Date / Time ampicillin Allergy Severe Rash Verified 03/18/25 13:28 terbinafine Allergy Severe Diarrhea Verified 03/18/25 13:28 Home Medications Medication Instructions Recorded Confirmed Type amlodipine 5 mg tablet 5 mg PO BID 01/31/25 02/25/25 History ascorbic acid (vitamin C) 500 mg 500 mg PO DAILY 01/31/25 02/25/25 History tablet (Vitamin C) cholecalciferol (vitamin D3) 25 25 mcg PO DAILY 01/31/25 02/25/25 History mcg (1,000 unit) capsule (Vitamin D3) etanercept 50 mg/mL (1 mL) 50 mg subcut WK 01/31/25 02/25/25 History subcutaneous cartridge (Enbrel Mini) hydrochlorothiazide 25 mg tablet 25 mg PO QAM 01/31/25 02/25/25 History leflunomide 10 mg tablet 10 mg PO QAM 01/31/25 02/25/25 History magnesium 200 mg tablet 200 mg PO DAILY 01/31/25 02/25/25 History multivitamin 1 tab PO DAILY 01/31/25 02/25/25 History omega-3 fatty acids 1,000 mg PO DAILY 01/31/25 02/25/25 History potassium chloride 10 mEq 20 meq PO QAM 01/31/25 02/25/25 History tablet,extended release (Klor-Con) spironolactone 25 mg tablet 25 mg PO QAM 01/31/25 02/25/25 History zolpidem 10 mg tablet 10 mg PO HS PRN prn 01/31/25 02/25/25 History oxycodone 5 mg tablet 5 mg PO Q6H PRN pain #30 tabs 02/26/25 Rx tramadol 50 mg tablet 50 mg PO Q6H PRN pain, moderate 02/26/25 Rx #30 tabs aspirin 81 mg tablet 81 mg PO DAILY 02/28/25 02/28/25 History rifampin 300 mg capsule 300 mg PO BID #60 caps 03/15/25 Rx Patient History Medical History History of UTI Rheumatoid arthritis Follows with Dr Ho/RAMANA Sheffield History of DVT (deep vein thrombosis) (2019) BL AQUILINO, was on AC x4 months (then discontinued) No issues since Hypertension Surgical History History of colonoscopy History of neuroma removal- right foot History of wisdom tooth extraction History of bunionectomy of both great toes History of tonsillectomy History of cataract surgery R/L History of cardiac cath (~2019) no stents Social History Smoking Status: Never smoker Second Hand Exposure: No; Do You Dip or Chew Tobacco: No; Tobacco Cessation Education Requested by Patient: No Hx Alcohol Use: Yes Hx Substance Use: No Preferred Language: Qatari Communication Ability: Effective Catering Staff Member Required: No Beliefs That Will Affect Care: Adventist Current Living Situation: Spouse Other Information That Helps Us Care for You: No Feels Safe at Home: Yes Safety Concerns: Feels Safe At This Time Assistive Devices: Cane, Stair Lift, Walker, Wheelchair and Other Review of Systems Review of Systems: Unobtainable due to cognitive status Physical Exam Constitutional: no acute distress Respiratory: normal respiratory effort Cardiovascular: Rate/Rhythm: + tachycardic Gastrointestinal (Abdomen): normal bowel sounds, soft, nontender, no hepatosplenomegaly Results & Data Vital Signs (Past 12 Hours) Vital Signs Temp Pulse Pulse Resp BP BP Pulse Ox 04/08/25 10:34 36.8 C 112 H 14 144/90 H 97 04/08/25 10:24 36.9 C 113 H 14 146/89 H 93 04/08/25 09:24 36.6 C 109 H 16 162/90 H 95 04/08/25 08:54 36.6 C 108 H 14 144/94 H 95 04/08/25 08:39 36.5 C 106 H 14 152/72 H 99 04/08/25 08:29 04/08/25 08:14 36.8 C 105 H 14 142/72 H 94 04/08/25 07:16 103 H 04/08/25 04:08 37.2 C 110 H 18 115/77 95 O2 Del Method 04/08/25 10:34 04/08/25 10:24 04/08/25 09:24 04/08/25 08:54 04/08/25 08:39 04/08/25 08:29 Room Air 04/08/25 08:14 04/08/25 07:16 04/08/25 04:08 Room Air PG Care Time/CCT Total # of Minutes Spent Total Time Spent with Patient: Total time spent is greater than 50% in coordination of care (as documented) at patient's floor/unit and/or counseling patient: Coding Level of Care Code 53570 INT INP/OBS CARE 3/75MIN Diagnoses Acute blood loss anemia D62
--- NOTE | 2025-04-08 12:20 | Hospitalist Progress Note ---
Date of Service April 08, 2025 Assessment & Plan (1) Acute blood loss anemia: (2) Other spondylosis with radiculopathy, lumbar region: (3) Tachycardia: (4) Leukocytosis: (5) Hyponatremia: (6) Hypertension: (7) Hyperlipidemia: (8) Rheumatoid arthritis: Plan Ms Kaur is a 69 year old female with PMH significant for hypertension, hyperlipidemia, rheumatoid arthritis, palpitations, history of bilateral pulmonary emboli, and lumbar spondylosis with radiculopathy who underwent L1-L5 decompression and fusion on 02/25/[address] Nova. We have been consulted for post operative medical management. Course complicated by spinal epidural abscess s/p most recent ID on 03/26. #Metabolic Encephalopathy -appears to be worsening at this time -MR brain 04/05/2025 unremarkable for acute pathology to explain syndrome -ammonia, TSH unremarkable -unclear etiology, for sure component of hypoactive delirium but other elements such as meningitis, subclinical seizures must be excluded -differential includes hyperactive delirium, electrolyte abnormalities (less likely), hepatic encephalopathy (less likely given ammonia but possible), subclinical seizures (possible), autoimmune/vasculitis (less likely but possible), meningitis (possible) Plan: -lumbar puncture if possible, ordered -finish metabolic workup, check RPR/electrolyte panel/VBG/autoimmune workup -trial of lactulose (given alk phos), patient accounting representative response -f/u EEG results -delirium precautions, will stop anticholinergics or other delirium inducing meds if able -check AM cortisol #Sinus Tachycardia -was sinus tach one week ago -likely 2/2 ongoing infection and stress on body Plan: -recheck ECG #Acute Blood Loss Anemia -likely dilutional and anemia of chronic disease Plan" -transfuse 1 unit of blood, recheck CBC after -check iron studies, start B12/folic acid supplementation #Elevated Alk Phos -could be 2/2 liver pathology vs. bone marrow disease Plan: -check GGT for now -further workup pending GGT #Post-op spinal epidural abscess s/p washout #Spondylosis with radiculopathy, lumbar region -02/25 L1-L5 decompression and fusion by Dr. Nova complicated by fluid collection, fall with end plate fractures -03/04 Post-op lumbar Spine MRI due to ongoing BLE weakness and pain revealed 15x5.1x3.1 cm fluid collection R aspect of subcu fat extending from level L1 vertebra down to level opposite L5 vertebra -03/05 CT lumbar spine revealed end plate fracture L4 and pedicle fx of L5 on the right, prompting revision surgery on 03/07 -03/07 S/p removal of posterior segmental instrumentation L2 L4-L5, revision decompression with bilateral foraminotomies L4-L5, kyphoplasty L2 L4 and L5 vertebral bodies, revision fusion L4-L5, L5-S1 -03/07 Epidural space and lumbar fascia OR cultures growing E coli, Morganella, corynebacterium, and staph epidermidis -03/18 s/p I&D w/ Dr. Nova - culture grew Enterococcus faecium VRE and velia albicans -03/26 s/ I&D w/ Dr. Nova, serous fluid noted but no gross purulence per review of op report - Culture from 03/26-VRE Per prior hospitalist: "03/21- case discussed with ID once more today given sensitivities and BRENDAN levels. Per Dr. Sharp: "...Since the VRE has high BRENDAN >4 for daptomycin, I would recommend starting on oral linezolid 600 mg twice daily. Please continue on IV ceftriaxone and reduce the dose to 2 g once daily. Also, continue on oral fluconazole and increase the dose to 600 mg once daily. Anticipated end date for IV ceftriaxone will be April 28, 2025. For both linezolid and fluconazole, she will likely require to be on them for life if tolerated. Please make sure to send for weekly CBC and CMP for the next 8 weeks after discharge. I would recommend that the patient got the labs done at [facility] so that I can follow up on them closely..." - Haywood catheter was changed on 03/29/2025 -fluconazole decrease to 300mg once a day based on kidney function on 04/06/2025. -MR lumbar spine without source of infection, CT abdomen/pelvis with improving gas in lumbar spine Plan: -follow up with infectious disease on May 29, 2025 -check CT chest with contrast to finish infectious workup to rule out need for further source control -check peripheral smear given elevated eosinophils Acute Kidney Injury -improving #Acute DVT/ Pulmonary Emboli -Pt with hypoxia and tachycardia on 03/12, requiring 2-3L of oxygen, -CTA chest obtained which noted pulmonary emboli bilaterally throughout the lungs -EKG noting sinus tachycardia Echo ordered to confirm no heart strain -03/16 received 1 unit of pRBC and Hgb stable, FOBT negative -Started on heparin on 03/27/2025; low-dose without bolus after discussion with orthospine. Switched over to therapeutic Lovenox on ; switch back to heparin(on 04/06/2025) as another I and D may be planned in next couple of day. plan to anticoagulate for 3 to 6 months.Plan to switch over to Lovenox when patient is closer to discharge; she can be switched over to DOAC's at the rehab. #Acute on Chronic Hyponatremia, likely siadh -resolved #Pre-Diabetes Steroid induced hyperglycemia -> resolved -A1C 6.3 #Hypertension- antihypertensive on hold #Rheumatoid arthritis -Hold leflunomide. To be restarted after antibiotics are completed. I spent a total of 60 minutes in direct patient care, including [id number] time with the patient and/or family, reviewing medical records, ordering and reviewing diagnostic tests, and coordinating care with other healthcare providers. This time includes: history taking, physical examination, medical decision making, counseling, ECG interpretation, imaging interpretation, lab interpretation, orders, and education, excluding time spent in the performance of separately billed services. Admission and Anticipated Discharge Date Admission Date: February 25, 2025 Subjective Patient seen and examined at bedside. present as well. DIscussed her current condition, including worsening metabolic encephalopathy and ongoing leukocytosis suggestive of ongoing inflammatory process. Discussed concern for a poor prognosis in medium to correction unless we determine source of encephalopathy, he was appreciative of the update. Patient altered this morning, unable to give history. Per patient not conversive at this time. Review of Systems Review of Systems: -unable to answer due to mental status Physical Exam Physical Exam: Gen: A&O 0 NAD HEENT: NCAT, EOMI, not icteric. External ears normal. No rhinorrhea. Moist mucous membranes. Neck: Supple, full range of motion, no observable masses, No meningeal sign. Lungs: No Respiratory distress. CV: regular rhythm, tachyardic Abdomen: tender to palpation mildly throughout abdomen MSK: No joint swelling, no redness. Skin: No rashes, petechiae, lesions. Normal color per patient. Neuro: confused, opens eyes and moves extremities Results & Data Results & Data Vital Signs (Past 12 Hours) Vital Signs Temp Pulse Pulse Resp BP BP Pulse Ox 04/08/25 10:34 36.8 C 112 H 14 144/90 H 97 04/08/25 10:24 36.9 C 113 H 14 146/89 H 93 04/08/25 09:24 36.6 C 109 H 16 162/90 H 95 04/08/25 08:54 36.6 C 108 H 14 144/94 H 95 04/08/25 08:39 36.5 C 106 H 14 152/72 H 99 04/08/25 08:29 04/08/25 08:14 36.8 C 105 H 14 142/72 H 94 04/08/25 07:16 103 H 04/08/25 04:08 37.2 C 110 H 18 115/77 95 O2 Del Method 04/08/25 10:34 04/08/25 10:24 04/08/25 09:24 04/08/25 08:54 04/08/25 08:39 04/08/25 08:29 Room Air 04/08/25 08:14 04/08/25 07:16 04/08/25 04:08 Room Air Laboratory Results -personally reviewed, Hgb of 6.5 replenished likely dilutional and anemia of chronic disease, marginally elevated eospinophils along with neutrophils with left shfit suggestive of ongoing infectious process, creatinine downtrending, elevated alk phos of 481 without evidence of cirrhosis---->will check GGT Medications Administered Clotrimazole (Clotrimazole 1% Cr 15 Gm Tube) 1 appln EXT BID PATRICK Stop: 04/11/25 20:59 Last Admin: 04/08/25 11:12 Dose: 1 appln Documented By: Admin: 04/07/25 19:45 Dose: 1 appln Documented By: Admin: 04/07/25 08:27 Dose: 1 appln Documented By: Admin: 04/06/25 20:45 Dose: 1 appln Documented By: Admin: 04/06/25 08:14 Dose: 1 appln Documented By: Admin: 04/05/25 20:12 Dose: 1 appln Documented By: Admin: 04/05/25 08:44 Dose: 1 appln Documented By: Admin: 04/04/25 21:48 Dose: 1 appln Documented By: Admin: 04/04/25 08:36 Dose: 1 appln Documented By: Admin: 04/03/25 22:01 Dose: Not Given Documented By: Admin: 04/03/25 08:35 Dose: 1 appln Documented By: Admin: 04/02/25 20:09 Dose: 1 appln Documented By: Admin: 04/02/25 07:47 Dose: 1 appln Documented By: Admin: 04/01/25 20:21 Dose: 1 appln Documented By: Admin: 04/01/25 08:11 Dose: 1 appln Documented By: Admin: 03/31/25 20:27 Dose: 1 appln Documented By: Admin: 03/31/25 08:00 Dose: 1 appln Documented By: Admin: 03/30/25 20:43 Dose: 1 appln Documented By: Admin: 03/30/25 08:31 Dose: 1 appln Documented By: Admin: 03/29/25 20:01 Dose: 1 appln Documented By: Admin: 03/29/25 08:04 Dose: 1 appln Documented By: Admin: 03/28/25 20:34 Dose: 1 appln Documented By: Admin: 03/28/25 09:48 Dose: 1 appln Documented By: Admin: 03/27/25 20:32 Dose: 1 appln Documented By: KDBi Admin: 03/27/25 09:49 Dose: 1 appln Documented By: KELSEY(2) Admin: 03/26/25 20:27 Dose: 1 appln Documented By: Admin: 03/26/25 08:33 Dose: 1 appln Documented By: CALI(2) Admin: 03/25/25 20:52 Dose: 1 appln Documented By: Admin: 03/25/25 09:01 Dose: 1 appln Documented By: KELSEY(2) Admin: 03/24/25 20:22 Dose: 1 appln Documented By: Admin: 03/24/25 07:51 Dose: 1 appln Documented By: Admin: 03/23/25 20:07 Dose: 1 appln Documented By: Admin: 03/23/25 08:32 Dose: 1 appln Documented By: Admin: 03/22/25 19:56 Dose: 1 appln Documented By: Admin: 03/22/25 08:22 Dose: 1 appln Documented By: Admin: 03/21/25 20:20 Dose: 1 appln Documented By: Admin: 03/21/25 08:34 Dose: 1 appln Documented By: Admin: 03/20/25 20:53 Dose: 1 appln Documented By: Admin: 03/20/25 08:56 Dose: 1 appln Documented By: Admin: 03/19/25 21:58 Dose: 1 appln Documented By: TMWilbert Admin: 03/19/25 09:04 Dose: 1 appln Documented By: Admin: 03/18/25 21:51 Dose: 1 appln Documented By: Admin: 03/18/25 08:16 Dose: 1 appln Documented By: Admin: 03/17/25 19:32 Dose: 1 appln Documented By: Admin: 03/17/25 09:41 Dose: 1 appln Documented By: TLZamzam(2) Admin: 03/16/25 21:30 Dose: 1 appln Documented By: Admin: 03/16/25 08:44 Dose: 1 appln Documented By: TLM(2) Admin: 03/15/25 23:11 Dose: 1 appln Documented By: Admin: 03/15/25 08:21 Dose: 1 appln Documented By: Admin: 03/14/25 21:29 Dose: 1 appln Documented By: Admin: 03/14/25 08:23 Dose: 1 appln Documented By: Admin: 03/13/25 21:29 Dose: 1 appln Documented By: Admin: 03/13/25 08:40 Dose: 1 appln Documented By: Admin: 03/12/25 22:22 Dose: 1 appln Documented By: AYDEE Famotidine (Famotidine 20 Mg Tab) 20 mg PO Q12H PRN PRN Reason: Dyspepsia Stop: 04/27/25 14:53 Last Admin: 04/04/25 08:35 Dose: 20 mg Documented By: KETruong Admin: 03/23/25 16:36 Dose: 20 mg Documented By: Admin: 03/14/25 08:20 Dose: 20 mg Documented By: Admin: 03/13/25 21:27 Dose: 20 mg Documented By: Admin: 03/13/25 08:41 Dose: 20 mg Documented By: Admin: 03/06/25 08:18 Dose: 20 mg Documented By: Admin: 03/05/25 20:04 Dose: 20 mg Documented By: RADHA(2) Admin: 03/05/25 08:02 Dose: 20 mg Documented By: Admin: 03/01/25 09:25 Dose: 20 mg Documented By: CYNDIE(2) Admin: 02/26/25 18:26 Dose: 20 mg Documented By: MACARIO Fluconazole (Fluconazole 100 Mg Tab) [facility] Stop: 05/01/25 08:59 Last Admin: 04/08/25 10:46 Dose: Not Given Documented By: Admin: 04/07/25 08:26 Dose: 300 mg Documented By: MICAH Folic Acid (Folic Acid 1 Mg Tab) 1 [facility]; Protocol Stop: 04/20/25 08:59 Last Admin: 04/08/25 10:46 Dose: Not Given Documented By: Admin: 04/07/25 08:55 Dose: Not Given Documented By: Admin: 04/06/25 08:16 Dose: 1 mg Documented By: Admin: 04/05/25 08:44 Dose: 1 mg Documented By: Admin: 04/04/25 08:36 Dose: 1 mg Documented By: Admin: 04/03/25 08:02 Dose: 1 mg Documented By: Admin: 04/02/25 07:49 Dose: 1 mg Documented By: Admin: 04/01/25 08:09 Dose: 1 mg Documented By: Admin: 03/31/25 07:58 Dose: 1 mg Documented By: Admin: 03/30/25 08:29 Dose: 1 mg Documented By: Admin: 03/29/25 08:06 Dose: 1 mg Documented By: Admin: 03/28/25 09:27 Dose: 1 mg Documented By: Admin: 03/27/25 09:51 Dose: 1 mg Documented By: KELSEY(2) Admin: 03/26/25 11:39 Dose: Not Given Documented By: CALI(2) Admin: 03/25/25 08:53 Dose: 1 mg Documented By: AMS(2) Admin: 03/24/25 07:40 Dose: 1 mg Documented By: Admin: 03/23/25 08:25 Dose: 1 mg Documented By: Admin: 03/22/25 08:19 Dose: 1 mg Documented By: Admin: 03/21/25 08:36 Dose: 1 mg Documented By: JANAE Heparin Sodium (Beef Lung) (Heparin 10 Unit/Ml 5 Ml Flush) 5 ml FLUSH PRN PRN PRN Reason: Flush Stop: 04/23/25 11:02 Last Admin: 04/08/25 11:10 Dose: 5 ml Documented By: Admin: 04/06/25 09:08 Dose: 5 ml Documented By: Admin: 04/05/25 18:20 Dose: 5 ml Documented By: Admin: 03/27/25 08:10 Dose: 5 ml Documented By: Admin: 03/25/25 08:32 Dose: 10 ml Documented By: Admin: 03/24/25 23:31 Dose: 5 ml Documented By: DYLAN Hydrocortisone (Hydrocortisone Hc 2.5% Crm 30gm Tube) 1 appln EXT BID PRN PRN Reason: Hemorrhoids Stop: 04/21/25 15:22 Last Admin: 03/23/25 08:21 Dose: 1 appln Documented By: RITESH Ceftriaxone Sodium (Rocephin) 2,000 mg in 50 mls @ 100 mls/hr IV DAILY PATRICK Stop: 04/28/25 23:59 Last Infusion: 04/08/25 11:13 Dose: Infused Documented By: Admin: 04/08/25 10:35 Dose: 100 mls/hr Documented By: Infusion: 04/07/25 09:00 Dose: Infused Documented By: Admin: 04/07/25 08:25 Dose: 100 mls/hr Documented By: Infusion: 04/06/25 09:14 Dose: Infused Documented By: Admin: 04/06/25 08:13 Dose: 100 mls/hr Documented By: Infusion: 04/05/25 09:08 Dose: Infused Documented By: Admin: 04/05/25 08:35 Dose: 100 mls/hr Documented By: Infusion: 04/04/25 09:42 Dose: Infused Documented By: Admin: 04/04/25 08:41 Dose: 50 mls/hr Documented By: Infusion: 04/03/25 08:36 Dose: Infused Documented By: Admin: 04/03/25 08:04 Dose: 100 mls/hr Documented By: Infusion: 04/02/25 08:18 Dose: Infused Documented By: Admin: 04/02/25 07:44 Dose: 100 mls/hr Documented By: Infusion: 04/01/25 10:02 Dose: Infused Documented By: Admin: 04/01/25 09:26 Dose: 100 mls/hr Documented By: Infusion: 03/31/25 09:05 Dose: Infused Documented By: Admin: 03/31/25 08:00 Dose: 100 mls/hr Documented By: Infusion: 03/30/25 09:00 Dose: Infused Documented By: Admin: 03/30/25 08:29 Dose: 100 mls/hr Documented By: Infusion: 03/29/25 08:40 Dose: Infused Documented By: Admin: 03/29/25 08:03 Dose: 100 mls/hr Documented By: Infusion: 03/28/25 09:07 Dose: Infused Documented By: Admin: 03/28/25 08:21 Dose: 100 mls/hr Documented By: Infusion: 03/27/25 09:22 Dose: Infused Documented By: KELSEY(2) Admin: 03/27/25 08:16 Dose: 100 mls/hr Documented By: KELSEY(2) Infusion: 03/26/25 10:58 Dose: Infused Documented By: CALI(2) Admin: 03/26/25 08:28 Dose: 100 mls/hr Documented By: CALI(2) Infusion: 03/25/25 11:08 Dose: Infused Documented By: KELSEY(2) Admin: 03/25/25 08:50 Dose: 100 mls/hr Documented By: AMS(2) Infusion: 03/24/25 09:52 Dose: Infused Documented By: Admin: 03/24/25 07:53 Dose: 100 mls/hr Documented By: Infusion: 03/23/25 11:44 Dose: Infused Documented By: Admin: 03/23/25 08:29 Dose: 100 mls/hr Documented By: Infusion: 03/22/25 11:22 Dose: Infused Documented By: Admin: 03/22/25 08:28 Dose: 100 mls/hr Documented By: EP Heparin Sodium/Dextrose (Heparin 31911 Unit/500 Ml D5w) 25,000 units in 500 mls @ 21 mls/hr IV .[id number] PATRICK; Protocol Stop: 05/06/25 20:59 Last Titration: 04/08/25 05:53 Dose: 0 units/hr, 0 mls/hr Documented By: KEMI Co-signed By: KELSEY(3) Admin: 04/07/25 23:47 Dose: 1,050 units/hr, 21 mls/hr Documented By: KEMI Co-signed By: MEGA Titration: 04/07/25 23:47 Dose: Infused Documented By: KEMI Co-signed By: MEGA Titration: 04/07/25 09:49 Dose: 1,050 units/hr, 21 mls/hr Documented By: MICAH Co-signed By: OS Titration: 04/07/25 09:09 Dose: 0 units/hr, 0 mls/hr Documented By: MICAH Co-signed By: OS Titration: 04/07/25 06:57 Dose: 1,250 units/hr, 25 mls/hr Documented By: MICAH Co-signed By: LORETTA Admin: 04/07/25 02:04 Dose: 1,250 units/hr, 25 mls/hr Documented By: LORETTA Co-signed By: KELSEY(3) Titration: 04/06/25 23:09 Dose: Infused Documented By: LORETTA Co-signed By: KELSEY(3) Admin: 04/06/25 20:44 Dose: 1,250 units/hr, 25 mls/hr Documented By: LORETTA Co-signed By: KELSEY(3) Lactobacillus Acidophilus (Advanced Probiotic 625 Mg Capsule) 1,250 mg PO DAILY [facility] Stop: 04/13/25 09:44 Last Admin: 04/08/25 10:46 Dose: Not Given Documented By: Admin: 04/07/25 08:55 Dose: Not Given Documented By: Admin: 04/06/25 08:36 Dose: Not Given Documented By: Admin: 04/05/25 08:44 Dose: 1,250 mg Documented By: Admin: 04/04/25 08:37 Dose: 1,250 mg Documented By: Admin: 04/03/25 08:03 Dose: 1,250 mg Documented By: Admin: 04/02/25 07:48 Dose: 1,250 mg Documented By: Admin: 04/01/25 08:07 Dose: 1,250 mg Documented By: Admin: 03/31/25 07:59 Dose: 1,250 mg Documented By: Admin: 03/30/25 08:30 Dose: 1,250 mg Documented By: Admin: 03/29/25 08:05 Dose: 1,250 mg Documented By: Admin: 03/28/25 09:28 Dose: 1,250 mg Documented By: Admin: 03/27/25 09:52 Dose: 1,250 mg Documented By: AMS(2) Admin: 03/26/25 11:39 Dose: Not Given Documented By: KEK(2) Admin: 03/25/25 08:53 Dose: 1,250 mg Documented By: AMS(2) Admin: 03/24/25 07:40 Dose: 1,250 mg Documented By: Admin: 03/23/25 08:24 Dose: 1,250 mg Documented By: Admin: 03/22/25 08:18 Dose: 1,250 mg Documented By: Admin: 03/21/25 08:35 Dose: 1,250 mg Documented By: Admin: 03/20/25 09:00 Dose: 1,250 mg Documented By: Admin: 03/19/25 09:05 Dose: 1,250 mg Documented By: Admin: 03/18/25 08:14 Dose: Not Given Documented By: Admin: 03/17/25 09:41 Dose: 1,250 mg Documented By: TLM(2) Admin: 03/16/25 08:44 Dose: 1,250 mg Documented By: TLM(2) Admin: 03/15/25 08:21 Dose: 1,250 mg Documented By: Admin: 03/14/25 10:11 Dose: 1,250 mg Documented By: AISHA Linezolid (Linezolid 600 Mg Tab) 600 mg PO BID PATRICK Stop: 05/01/25 08:59 Last Admin: 04/08/25 10:47 Dose: Not Given Documented By: Admin: 04/07/25 19:44 Dose: Not Given Documented By: Admin: 04/07/25 08:27 Dose: 600 mg Documented By: Admin: 04/06/25 20:44 Dose: 600 mg Documented By: Admin: 04/06/25 08:16 Dose: 600 mg Documented By: Admin: 04/05/25 20:15 Dose: 600 mg Documented By: Admin: 04/05/25 08:44 Dose: 600 mg Documented By: Admin: 04/04/25 21:48 Dose: 600 mg Documented By: Admin: 04/04/25 08:36 Dose: 600 mg Documented By: Admin: 04/03/25 22:00 Dose: 600 mg Documented By: Admin: 04/03/25 08:04 Dose: 600 mg Documented By: Admin: 04/02/25 20:12 Dose: 600 mg Documented By: Admin: 04/02/25 07:49 Dose: 600 mg Documented By: Admin: 04/01/25 20:21 Dose: 600 mg Documented By: Admin: 04/01/25 09:26 Dose: 600 mg Documented By: RETA Magnesium Chloride (Magnesium Chloride W/Calcium 64mg Delayed Rel Tab) 128 mg PO TID PATRICK Stop: 04/23/25 20:59 Last Admin: 04/08/25 10:47 Dose: Not Given Documented By: Admin: 04/07/25 19:44 Dose: Not Given Documented By: Admin: 04/07/25 14:19 Dose: Not Given Documented By: Admin: 04/07/25 08:27 Dose: 128 mg Documented By: Admin: 04/06/25 22:05 Dose: Not Given Documented By: Admin: 04/06/25 15:15 Dose: 128 mg Documented By: Admin: 04/06/25 08:16 Dose: 128 mg Documented By: Admin: 04/05/25 20:13 Dose: 128 mg Documented By: Admin: 04/05/25 13:32 Dose: 128 mg Documented By: Admin: 04/05/25 09:06 Dose: Not Given Documented By: Admin: 04/04/25 21:50 Dose: 128 mg Documented By: Admin: 04/04/25 14:07 Dose: 128 mg Documented By: Admin: 04/04/25 08:35 Dose: 128 mg Documented By: Admin: 04/03/25 21:55 Dose: 128 mg Documented By: Admin: 04/03/25 13:04 Dose: Not Given Documented By: Admin: 04/03/25 08:01 Dose: 128 mg Documented By: Admin: 04/02/25 20:11 Dose: 128 mg Documented By: Admin: 04/02/25 14:17 Dose: 128 mg Documented By: Admin: 04/02/25 07:49 Dose: 128 mg Documented By: Admin: 04/01/25 20:22 Dose: 128 mg Documented By: Admin: 04/01/25 13:37 Dose: 128 mg Documented By: Admin: 04/01/25 08:07 Dose: 128 mg Documented By: Admin: 03/31/25 20:26 Dose: 128 mg Documented By: Admin: 03/31/25 14:26 Dose: 128 mg Documented By: Admin: 03/31/25 07:58 Dose: 128 mg Documented By: Admin: 03/30/25 20:43 Dose: 128 mg Documented By: Admin: 03/30/25 15:05 Dose: Not Given Documented By: Admin: 03/30/25 08:31 Dose: 128 mg Documented By: Admin: 03/29/25 20:02 Dose: 128 mg Documented By: Admin: 03/29/25 14:25 Dose: Not Given Documented By: Admin: 03/29/25 08:04 Dose: 128 mg Documented By: Admin: 03/28/25 20:34 Dose: 128 mg Documented By: Admin: 03/28/25 14:44 Dose: 128 mg Documented By: Admin: 03/28/25 09:30 Dose: 128 mg Documented By: Admin: 03/27/25 20:32 Dose: 128 mg Documented By: Admin: 03/27/25 15:04 Dose: 128 mg Documented By: AMS(2) Admin: 03/27/25 09:50 Dose: 128 mg Documented By: AMS(2) Admin: 03/26/25 20:26 Dose: 128 mg Documented By: Admin: 03/26/25 14:58 Dose: 128 mg Documented By: CALI(2) Admin: 03/26/25 13:15 Dose: Not Given Documented By: CALI(2) Admin: 03/25/25 20:50 Dose: 128 mg Documented By: Admin: 03/25/25 15:21 Dose: 128 mg Documented By: KELSEY(2) Admin: 03/25/25 09:00 Dose: 128 mg Documented By: KELSEY(2) Admin: 03/24/25 20:20 Dose: 128 mg Documented By: DYLAN Metoprolol Succinate (Metoprolol Succ 25mg Ext Rel Tab) 25 mg PO BID PATRICK Stop: 05/06/25 20:59 Last Admin: 04/08/25 10:47 Dose: Not Given Documented By: Admin: 04/07/25 19:47 Dose: 25 mg Documented By: Admin: 04/07/25 08:26 Dose: 25 mg Documented By: Admin: 04/06/25 20:44 Dose: 25 mg Documented By: LORETTA Multivitamins (Multivitamin Tab) 1 tab PO DAILY PATRICK Stop: 04/28/25 08:59 Last Admin: 04/08/25 10:47 Dose: Not Given Documented By: Admin: 04/07/25 08:55 Dose: Not Given Documented By: Admin: 04/06/25 08:17 Dose: 1 tab Documented By: Admin: 04/05/25 08:43 Dose: 1 tab Documented By: Admin: 04/04/25 08:37 Dose: 1 tab Documented By: Admin: 04/03/25 08:01 Dose: 1 tab Documented By: Admin: 04/02/25 07:49 Dose: 1 tab Documented By: Admin: 04/01/25 08:09 Dose: 1 tab Documented By: Admin: 03/31/25 08:00 Dose: 1 tab Documented By: Admin: 03/30/25 08:30 Dose: 1 tab Documented By: Admin: 03/29/25 08:06 Dose: 1 tab Documented By: Admin: 03/28/25 09:30 Dose: 1 tab Documented By: Admin: 03/27/25 09:50 Dose: 1 tab Documented By: AMS(2) Admin: 03/26/25 11:39 Dose: Not Given Documented By: KEK(2) Admin: 03/25/25 08:53 Dose: 1 tab Documented By: AMS(2) Admin: 03/24/25 07:42 Dose: 1 tab Documented By: Admin: 03/23/25 10:36 Dose: 1 tab Documented By: Admin: 03/22/25 08:18 Dose: 1 tab Documented By: Admin: 03/21/25 08:35 Dose: 1 tab Documented By: Admin: 03/20/25 08:54 Dose: 1 tab Documented By: Admin: 03/19/25 09:06 Dose: 1 tab Documented By: Admin: 03/18/25 08:14 Dose: Not Given Documented By: Admin: 03/17/25 09:41 Dose: 1 tab Documented By: TLM(2) Admin: 03/16/25 08:44 Dose: 1 tab Documented By: TLM(2) Admin: 03/15/25 08:24 Dose: 1 tab Documented By: Admin: 03/14/25 08:25 Dose: 1 tab Documented By: Admin: 03/13/25 08:42 Dose: 1 tab Documented By: Admin: 03/12/25 08:01 Dose: 1 tab Documented By: Admin: 03/11/25 09:07 Dose: 1 tab Documented By: Admin: 03/10/25 08:52 Dose: 1 tab Documented By: Admin: 03/09/25 08:42 Dose: 1 tab Documented By: Admin: 03/08/25 09:34 Dose: 1 tab Documented By: EDAnish Admin: 03/07/25 11:21 Dose: 1 tab Documented By: Admin: 03/06/25 08:19 Dose: 1 tab Documented By: Admin: 03/05/25 08:04 Dose: 1 tab Documented By: Admin: 03/04/25 08:40 Dose: 1 tab Documented By: Admin: 03/03/25 08:03 Dose: 1 tab Documented By: Admin: 03/02/25 08:26 Dose: 1 tab Documented By: Admin: 03/01/25 08:37 Dose: 1 tab Documented By: [email or web address](2) Admin: 02/28/25 08:34 Dose: 1 tab Documented By: [email or web address](2) Admin: 02/27/25 08:30 Dose: 1 tab Documented By: Admin: 02/26/25 08:10 Dose: 1 tab Documented By: MACARIO Ondansetron HCl (Ondansetron 4 Mg Od Tab) 4 mg PO Q6H PRN PRN Reason: Nausea Stop: 04/27/25 14:53 Last Admin: 03/21/25 08:50 Dose: 4 mg Documented By: Admin: 02/26/25 18:26 Dose: 4 mg Documented By: MACARIO Pantoprazole Sodium (Pantoprazole 40 Mg Tab) 40 mg PO DAILYBL PATRICK Stop: 04/30/25 10:29 Last Admin: 04/07/25 11:30 Dose: 40 mg Documented By: Admin: 04/06/25 11:01 Dose: 40 mg Documented By: Admin: 04/05/25 11:01 Dose: 40 mg Documented By: Admin: 04/04/25 08:36 Dose: 40 mg Documented By: Admin: 04/03/25 10:39 Dose: Not Given Documented By: Admin: 04/02/25 11:32 Dose: 40 mg Documented By: Admin: 04/01/25 09:29 Dose: 40 mg Documented By: Admin: 03/31/25 08:00 Dose: 40 mg Documented By: Admin: 03/30/25 08:29 Dose: 40 mg Documented By: Admin: 03/29/25 08:06 Dose: 40 mg Documented By: Admin: 03/28/25 09:31 Dose: 40 mg Documented By: Admin: 03/27/25 09:50 Dose: 40 mg Documented By: KELSEY(2) Admin: 03/26/25 14:28 Dose: 40 mg Documented By: CALI(2) Admin: 03/25/25 10:33 Dose: 40 mg Documented By: KELSEY(2) Admin: 03/24/25 11:23 Dose: 40 mg Documented By: Admin: 03/23/25 10:36 Dose: 40 mg Documented By: Admin: 03/22/25 13:41 Dose: 40 mg Documented By: Admin: 03/21/25 08:35 Dose: 40 mg Documented By: Admin: 03/20/25 13:49 Dose: 40 mg Documented By: Admin: 03/19/25 09:06 Dose: 40 mg Documented By: Admin: 03/18/25 08:15 Dose: Not Given Documented By: Admin: 03/17/25 09:41 Dose: 40 mg Documented By: TLM(2) Admin: 03/16/25 10:06 Dose: 40 mg Documented By: TLM(2) Admin: 03/15/25 08:24 Dose: 40 mg Documented By: Admin: 03/14/25 08:25 Dose: 40 mg Documented By: Admin: 03/13/25 08:41 Dose: 40 mg Documented By: Admin: 03/12/25 08:03 Dose: 40 mg Documented By: Admin: 03/11/25 11:14 Dose: 40 mg Documented By: Admin: 03/10/25 10:30 Dose: 40 mg Documented By: Admin: 03/09/25 10:15 Dose: 40 mg Documented By: Admin: 03/08/25 09:34 Dose: 40 mg Documented By: EDAnish Admin: 03/07/25 11:22 Dose: 40 mg Documented By: EDAnish Admin: 03/06/25 08:19 Dose: 40 mg Documented By: Admin: 03/05/25 09:36 Dose: 40 mg Documented By: Admin: 03/04/25 08:40 Dose: 40 mg Documented By: Admin: 03/03/25 09:54 Dose: 40 mg Documented By: Admin: 03/02/25 10:00 Dose: 40 mg Documented By: Admin: 03/01/25 08:36 Dose: 40 mg Documented By: KDL(2) Admin: 02/28/25 10:44 Dose: 40 mg Documented By: KDL(2) Polyethylene Glycol (Polyethylene (Miralax) 17 Gm Pack) 17 gm PO DAILY PATRICK Stop: 04/09/25 08:59 Last Admin: 04/08/25 08:37 Dose: Not Given Documented By: Admin: 04/07/25 08:18 Dose: Not Given Documented By: Admin: 04/06/25 07:54 Dose: Not Given Documented By: Admin: 04/05/25 09:06 Dose: Not Given Documented By: Admin: 04/04/25 08:20 Dose: Not Given Documented By: Admin: 04/03/25 08:10 Dose: Not Given Documented By: Admin: 04/02/25 08:00 Dose: 17 gm Documented By: [email or web address] Admin: 04/01/25 08:14 Dose: 17 gm Documented By: Admin: 03/31/25 07:57 Dose: Not Given Documented By: Admin: 03/30/25 10:41 Dose: Not Given Documented By: Admin: 03/29/25 08:07 Dose: Not Given Documented By: Admin: 03/28/25 08:24 Dose: Not Given Documented By: Admin: 03/27/25 09:53 Dose: Not Given Documented By: AMS(2) Admin: 03/26/25 11:40 Dose: Not Given Documented By: KEK(2) Admin: 03/25/25 09:01 Dose: Not Given Documented By: AMS(2) Admin: 03/24/25 07:54 Dose: Not Given Documented By: Admin: 03/23/25 08:33 Dose: Not Given Documented By: Admin: 03/22/25 08:24 Dose: Not Given Documented By: Admin: 03/21/25 08:49 Dose: Not Given Documented By: Admin: 03/20/25 08:59 Dose: Not Given Documented By: Admin: 03/19/25 14:08 Dose: Not Given Documented By: Admin: 03/18/25 08:14 Dose: Not Given Documented By: Admin: 03/17/25 09:42 Dose: Not Given Documented By: TLM(2) Admin: 03/16/25 08:44 Dose: Not Given Documented By: TLM(2) Admin: 03/15/25 08:24 Dose: Not Given Documented By: Admin: 03/14/25 08:20 Dose: 17 gm Documented By: Admin: 03/13/25 08:42 Dose: 17 gm Documented By: Admin: 03/12/25 07:50 Dose: Not Given Documented By: Admin: 03/11/25 09:06 Dose: 17 gm Documented By: Admin: 03/10/25 09:01 Dose: Not Given Documented By: DLS Senna/Docusate Sodium (Docusate Sodium/Senna 50/8.6mg Tab) 2 tab PO HS PATRICK Stop: 04/27/25 20:59 Last Admin: 04/07/25 19:15 Dose: Not Given Documented By: Admin: 04/06/25 22:04 Dose: Not Given Documented By: Admin: 04/05/25 19:44 Dose: Not Given Documented By: Admin: 04/04/25 21:48 Dose: Not Given Documented By: Admin: 04/03/25 22:00 Dose: Not Given Documented By: Admin: 04/02/25 20:10 Dose: Not Given Documented By: Admin: 04/01/25 20:22 Dose: 2 tab Documented By: Admin: 03/31/25 20:26 Dose: 2 tab Documented By: Admin: 03/30/25 20:43 Dose: 2 tab Documented By: Admin: 03/29/25 19:54 Dose: Not Given Documented By: Admin: 03/28/25 20:23 Dose: Not Given Documented By: Admin: 03/27/25 20:32 Dose: 2 tab Documented By: Admin: 03/26/25 20:28 Dose: Not Given Documented By: Admin: 03/25/25 20:51 Dose: Not Given Documented By: Admin: 03/24/25 20:20 Dose: Not Given Documented By: Admin: 03/23/25 20:05 Dose: Not Given Documented By: Admin: 03/22/25 19:27 Dose: Not Given Documented By: Admin: 03/21/25 20:18 Dose: Not Given Documented By: Admin: 03/20/25 20:53 Dose: Not Given Documented By: Admin: 03/19/25 22:00 Dose: 2 tab Documented By: Admin: 03/18/25 21:52 Dose: Not Given Documented By: Admin: 03/17/25 19:38 Dose: Not Given Documented By: Admin: 03/16/25 19:43 Dose: Not Given Documented By: Admin: 03/15/25 23:11 Dose: 2 tab Documented By: Admin: 03/14/25 21:29 Dose: 2 tab Documented By: Admin: 03/13/25 21:27 Dose: 2 tab Documented By: Admin: 03/12/25 21:01 Dose: 2 tab Documented By: Admin: 03/11/25 20:50 Dose: Not Given Documented By: Admin: 03/10/25 20:48 Dose: Not Given Documented By: Admin: 03/09/25 21:36 Dose: Not Given Documented By: [id number] Admin: 03/08/25 21:06 Dose: 2 tab Documented By: Admin: 03/07/25 21:17 Dose: 2 tab Documented By: HKJh Admin: 03/06/25 20:51 Dose: 2 tab Documented By: Admin: 03/05/25 20:00 Dose: 2 tab Documented By: RADHA(2) Admin: 03/04/25 20:36 Dose: 2 tab Documented By: [email or web address] Admin: 03/03/25 21:22 Dose: 2 tab Documented By: Admin: 03/02/25 19:53 Dose: 2 tab Documented By: Admin: 03/01/25 20:46 Dose: 2 tab Documented By: Admin: 02/28/25 20:56 Dose: Not Given Documented By: Admin: 02/27/25 20:25 Dose: Not Given Documented By: Admin: 02/26/25 20:34 Dose: 2 tab Documented By: Admin: 02/25/25 20:18 Dose: 2 tab Documented By: SND Thiamine HCl (Thiamine Hcl 100 Mg Tab) 200 mg PO TODAY@0900 [facility] Stop: 04/16/25 15:44 Last Admin: 04/08/25 10:47 Dose: Not Given Documented By: Admin: 04/07/25 08:55 Dose: Not Given Documented By: Admin: 04/06/25 08:17 Dose: 200 mg Documented By: Admin: 04/05/25 08:43 Dose: 200 mg Documented By: Admin: 04/04/25 08:35 Dose: 200 mg Documented By: Admin: 04/03/25 08:01 Dose: 200 mg Documented By: Admin: 04/02/25 07:49 Dose: 200 mg Documented By: Admin: 04/01/25 08:09 Dose: 200 mg Documented By: Admin: 03/31/25 07:59 Dose: 200 mg Documented By: Admin: 03/30/25 08:30 Dose: 200 mg Documented By: Admin: 03/29/25 08:06 Dose: 200 mg Documented By: Admin: 03/28/25 09:31 Dose: 200 mg Documented By: Admin: 03/27/25 09:50 Dose: 200 mg Documented By: KELSEY(2) Admin: 03/26/25 11:40 Dose: Not Given Documented By: CALI(2) Admin: 03/25/25 08:53 Dose: 200 mg Documented By: KELSEY(2) Admin: 03/24/25 07:40 Dose: 200 mg Documented By: Admin: 03/23/25 08:21 Dose: 200 mg Documented By: Admin: 03/22/25 08:16 Dose: 200 mg Documented By: EP Vitamin D (Cholecalciferol 25 Mcg (1000 Units) Tab) 25 mcg PO DAILY PATRICK Stop: 04/28/25 08:59 Last Admin: 04/08/25 10:46 Dose: Not Given Documented By: Admin: 04/07/25 08:54 Dose: Not Given Documented By: Admin: 04/06/25 08:14 Dose: 25 mcg Documented By: Admin: 04/05/25 08:44 Dose: 25 mcg Documented By: Admin: 04/04/25 08:35 Dose: 25 mcg Documented By: Admin: 04/03/25 08:01 Dose: 25 mcg Documented By: Admin: 04/02/25 07:49 Dose: 25 mcg Documented By: Admin: 04/01/25 08:09 Dose: 25 mcg Documented By: Admin: 03/31/25 07:59 Dose: 25 mcg Documented By: Admin: 03/30/25 08:29 Dose: 25 mcg Documented By: Admin: 03/29/25 08:05 Dose: 25 mcg Documented By: Admin: 03/28/25 09:26 Dose: 25 mcg Documented By: Admin: 03/27/25 09:51 Dose: 25 mcg Documented By: KELSEY(2) Admin: 03/26/25 11:39 Dose: Not Given Documented By: CALI(2) Admin: 03/25/25 08:53 Dose: 25 mcg Documented By: AMS(2) Admin: 03/24/25 07:41 Dose: 25 mcg Documented By: Admin: 03/23/25 08:25 Dose: 25 mcg Documented By: Admin: 03/22/25 08:17 Dose: 25 mcg Documented By: Admin: 03/21/25 08:35 Dose: 25 mcg Documented By: Admin: 03/20/25 08:54 Dose: 25 mcg Documented By: Admin: 03/19/25 09:05 Dose: 25 mcg Documented By: Admin: 03/18/25 08:14 Dose: Not Given Documented By: Admin: 03/17/25 09:41 Dose: 25 mcg Documented By: TLM(2) Admin: 03/16/25 08:44 Dose: 25 mcg Documented By: TLM(2) Admin: 03/15/25 08:24 Dose: 25 mcg Documented By: Admin: 03/14/25 08:25 Dose: 25 mcg Documented By: Admin: 03/13/25 08:42 Dose: 25 mcg Documented By: Admin: 03/12/25 08:01 Dose: 25 mcg Documented By: Admin: 03/11/25 09:07 Dose: 25 mcg Documented By: Admin: 03/10/25 08:52 Dose: 25 mcg Documented By: Admin: 03/09/25 08:42 Dose: 25 mcg Documented By: Admin: 03/08/25 09:33 Dose: 25 mcg Documented By: Admin: 03/07/25 11:20 Dose: 25 mcg Documented By: Admin: 03/06/25 08:19 Dose: 25 mcg Documented By: Admin: 03/05/25 08:04 Dose: 25 mcg Documented By: Admin: 03/04/25 08:40 Dose: 25 mcg Documented By: Admin: 03/03/25 08:03 Dose: 25 mcg Documented By: Admin: 03/02/25 08:25 Dose: 25 mcg Documented By: Admin: 03/01/25 08:36 Dose: 25 mcg Documented By: KDL(2) Admin: 02/28/25 08:34 Dose: 25 mcg Documented By: KDL(2) Admin: 02/27/25 08:31 Dose: 25 mcg Documented By: Admin: 02/26/25 08:10 Dose: 25 mcg Documented By: MACARIO
[2025-04-08 12:39] LABS: Hematocrit (blood only) 24.4 % (37.0-47.0); Hemoglobin 7.8 g/dl (12.0-16.0); Immature Granulocytes # (auto) 0.13 K/uL (0.01-0.20); Immature Granulocytes % (auto) 1.1 %; Mean Corpuscular Hemoglobin 26.8 pg (25.0-34.0); Mean Corpuscular Volume 83.8 fL (80.0-100.0); Platelet Count 311 K/uL (130-400); RDW Standard Deviation 56.7 fL (36.4-46.3); Red Blood Count 2.91 M/uL (4.20-5.40); White Blood Count 12.00 K/ul (4.8-10.8)
[2025-04-08] MEDS: LACTULOSE SYRUP 20 GM/30 ML UDC PO SCH (13:10)
--- NOTE | 2025-04-08 13:10 | Orthopedic Progress Note ---
Date of Service April 08, 2025 Assessment & Plan (1) Metabolic encephalopathy: Plan: At this time I had a discussion with the regarding her condition. Pending the results of her labs and tests I may consider repeat irrigation debridement lumbar spine with possible wound VAC. He understands agrees with this plan. MRI was reviewed. I appreciate a fluid collection which is not unexpected. I do not appreciate any psoas abscess. Admission and Anticipated Discharge Date Admission Date: February 25, 2025 Subjective Patient is delirious this morning not responsive to questioning. Physical Exam Physical Exam: Again the patient is delirious. Neurologic exam not possible. Results & Data Vital Signs (Past 12 Hours) Vital Signs Temp Pulse Pulse Resp BP BP Pulse Ox 04/08/25 10:34 36.8 C 112 H 14 144/90 H 97 04/08/25 10:24 36.9 C 113 H 14 146/89 H 93 04/08/25 09:24 36.6 C 109 H 16 162/90 H 95 04/08/25 08:54 36.6 C 108 H 14 144/94 H 95 04/08/25 08:39 36.5 C 106 H 14 152/72 H 99 04/08/25 08:29 04/08/25 08:14 36.8 C 105 H 14 142/72 H 94 04/08/25 07:16 103 H 04/08/25 04:08 37.2 C 110 H 18 115/77 95 O2 Del Method 04/08/25 10:34 04/08/25 10:24 04/08/25 09:24 04/08/25 08:54 04/08/25 08:39 04/08/25 08:29 Room Air 04/08/25 08:14 04/08/25 07:16 04/08/25 04:08 Room Air Queries Orthopedic Spine Acute Posthemorrhagic Anemia: Yes Obesity: Yes 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
[2025-04-08 13:11] LABS: Acanthocytes 1+; Polychromasia 1+
[2025-04-08 13:11] LABS: Base Excess VBG -3.6 mEq/L; HCO3 VBG 21 mmol/L; Oxygen Saturation VBG 66.4 %; PCO2 VBG 34 mmHg (38-50); PO2 VBG 37 mmHg; pH VBG 7.39 (7.36-7.41)
[2025-04-08 13:33] LABS: Iron 32.0 mcg/dl (35-150); Total Iron Binding Cap Calc 148.0 mcg/dl (250-450); Transferrin 106.0 mg/dl (200-360); Transferrin (FE) Percent Satur 22.0 % (15-50)
[2025-04-08 13:37] LABS: Iron 34.0 mcg/dl (35-150); Magnesium 1.8 mg/dl (1.7-2.4); Total Iron Binding Cap Calc 117.0 mcg/dl (250-450); Transferrin 99.0 mg/dl (200-360); Transferrin (FE) Percent Satur 29.0 % (15-50)
[2025-04-08 13:51] LABS: Ferritin 414.9 ng/ml (8-388)
--- NOTE | 2025-04-08 15:16 | Electrocardiogram Report ---
Test Reason : Blood Pressure : */* mmHG Vent. Rate : 120 BPM Atrial Rate : 120 BPM P-R Int : 146 ms QRS Dur : 72 ms QT Int : 324 ms P-R-T Axes : 71 -12 45 degrees QTcB Int : 457 ms Sinus tachycardia with frequent Premature ventricular complexes Low voltage QRS Inferior infarct , age undetermined Poor R wave progression, consider anterior UT vs. lead placement vs. LVH Abnormal ECG When compared with ECG of 27-Mar-2025 12:14, Premature ventricular complexes are now Present Confirmed by Evangelista Saha ([id number]) on 04/08/2025 3:15:43 PM Referred By: Adriel Nova Confirmed By: Evangelista Saha
--- NOTE | 2025-04-08 17:19 | Discharge Summary ---
Discharge Summary Date of Service April 08, 2025 Principal Dx & Hospital Course #1 = Principal Diagnosis (1) Acute blood loss anemia: (2) Other spondylosis with radiculopathy, lumbar region: (3) Tachycardia: (4) Leukocytosis: (5) Hyponatremia: (6) Hypertension: (7) Hyperlipidemia: (8) Rheumatoid arthritis: Plan Ms Kaur is a 69 year old female with PMH significant for hypertension, hyperlipidemia, rheumatoid arthritis, palpitations, history of bilateral pulmonary emboli, and lumbar spondylosis with radiculopathy who underwent L1-L5 decompression and fusion on 02/25/[address] Nova. We have been consulted for post operative medical management. Course complicated by spinal epidural abscess s/p most recent ID on 03/26. #Metabolic Encephalopathy -appears to be worsening at this time -MR brain 04/05/2025 unremarkable for acute pathology to explain syndrome -ammonia, TSH unremarkable -unclear etiology, for sure component of hypoactive delirium but other elements such as meningitis, subclinical seizures must be excluded -differential includes hyperactive delirium, electrolyte abnormalities (less likely), hepatic encephalopathy (less likely given ammonia but possible), subclinical seizures (possible), autoimmune/vasculitis (less likely but possible), meningitis (possible) Plan: -lumbar puncture if possible, ordered -finish metabolic workup, check RPR/electrolyte panel/VBG/autoimmune workup -trial of lactulose (given alk phos), federal judge response -f/u EEG results -delirium precautions, will stop anticholinergics or other delirium inducing meds if able -check AM cortisol #Sinus Tachycardia -was sinus tach one week ago -likely 2/2 ongoing infection and stress on body Plan: -recheck ECG #Acute Blood Loss Anemia -likely dilutional and anemia of chronic disease Plan" -transfuse 1 unit of blood, recheck CBC after -check iron studies, start B12/folic acid supplementation #Elevated Alk Phos -could be 2/2 liver pathology vs. bone marrow disease Plan: -check GGT for now -further workup pending GGT #Post-op spinal epidural abscess s/p washout #Spondylosis with radiculopathy, lumbar region -02/25 L1-L5 decompression and fusion by Dr. Nova complicated by fluid collection, fall with end plate fractures -03/04 Post-op lumbar Spine MRI due to ongoing BLE weakness and pain revealed 15x5.1x3.1 cm fluid collection R aspect of subcu fat extending from level L1 vertebra down to level opposite L5 vertebra -03/05 CT lumbar spine revealed end plate fracture L4 and pedicle fx of L5 on the right, prompting revision surgery on 03/07 -03/07 S/p removal of posterior segmental instrumentation L2 L4-L5, revision decompression with bilateral foraminotomies L4-L5, kyphoplasty L2 L4 and L5 vertebral bodies, revision fusion L4-L5, L5-S1 -03/07 Epidural space and lumbar fascia OR cultures growing E coli, Morganella, corynebacterium, and staph epidermidis -03/18 s/p I&D w/ Dr. Nova - culture grew Enterococcus faecium VRE and velia albicans -03/26 s/ I&D w/ Dr. Nova, serous fluid noted but no gross purulence per review of op report - Culture from 03/26-VRE Per prior hospitalist: "03/21- case discussed with ID once more today given sensitivities and BRENDAN levels. Per Dr. Sharp: "...Since the VRE has high BRENDAN >4 for daptomycin, I would recommend starting on oral linezolid 600 mg twice daily. Please continue on IV ceftriaxone and reduce the dose to 2 g once daily. Also, continue on oral fluconazole and increase the dose to 600 mg once daily. Anticipated end date for IV ceftriaxone will be April 28, 2025. For both linezolid and fluconazole, she will likely require to be on them for life if tolerated. Please make sure to send for weekly CBC and CMP for the next 8 weeks after discharge. I would recommend that the patient got the labs done at [facility] facility so that I can follow up on them closely..." - Haywood catheter was changed on 03/29/2025 -fluconazole decrease to 300mg once a day based on kidney function on 04/06/2025. -MR lumbar spine without source of infection, CT abdomen/pelvis with improving gas in lumbar spine Plan: -follow up with infectious disease on May 29, 2025 -check CT chest with contrast to finish infectious workup to rule out need for further source control -check peripheral smear given elevated eosinophils Acute Kidney Injury -improving #Acute DVT/ Pulmonary Emboli -Pt with hypoxia and tachycardia on 03/12, requiring 2-3L of oxygen, -CTA chest obtained which noted pulmonary emboli bilaterally throughout the lungs -EKG noting sinus tachycardia Echo ordered to confirm no heart strain -03/16 received 1 unit of pRBC and Hgb stable, FOBT negative -Started on heparin on 03/27/2025; low-dose without bolus after discussion with orthospine. Switched over to therapeutic Lovenox on ; switch back to heparin(on 04/06/2025) as another I and D may be planned in next couple of day. plan to anticoagulate for 3 to 6 months.Plan to switch over to Lovenox when patient is closer to discharge; she can be switched over to DOAC's at the rehab. #Acute on Chronic Hyponatremia, likely siadh -resolved #Pre-Diabetes Steroid induced hyperglycemia -> resolved -A1C 6.3 #Hypertension- antihypertensive on hold #Rheumatoid arthritis -Hold leflunomide. To be restarted after antibiotics are completed. I spent a total of 60 minutes in direct patient care, including kbet-go-ljah time with the patient and/or family, reviewing medical records, ordering and reviewing diagnostic tests, and coordinating care with other healthcare providers. This time includes: history taking, physical examination, medical decision making, counseling, ECG interpretation, imaging interpretation, lab interpretation, orders, and education, excluding time spent in the performance of separately billed services. Notes For Next Care Provider Ms Kaur is a 69 year old female with PMH significant for hypertension, hyperlipidemia, rheumatoid arthritis, palpitations, history of bilateral pulmonary emboli, and lumbar spondylosis with radiculopathy who underwent L1-L5 decompression and fusion on 02/25/[address] Nova. We have been consulted for post operative medical management. Long hospital course, 42 days. Surgical history listed below. Hospital course unfolded with 4 different procedures due to hardware infection, subsequent removal, post op epidural abscess formation and subsequent washout. Patient mental status began to decline about 2 weeks into hospitalization. Nephrology consulted given JAQUI, NAGMA and concurrent AGMA. GI consulted for ongoing chronic blood loss anemia. ID consulted for complex VRE, see recs below. Mental status continued to decline. Given need for technically complicated lumbar puncture and 24 hour EEG, patient accepted to [facility] for further evaluation. Ortho spine report given by surgical spine service prior to transfer. Surgical History: -02/25 L1-L5 decompression and fusion by Dr. Nova complicated by fluid collection, fall with end plate fractures -03/04 Post-op lumbar Spine MRI due to ongoing BLE weakness and pain revealed 15x5.1x3.1 cm fluid collection R aspect of subcu fat extending from level L1 vertebra down to level opposite L5 vertebra -03/05 CT lumbar spine revealed end plate fracture L4 and pedicle fx of L5 on the right, prompting revision surgery on 03/07 -03/07 S/p removal of posterior segmental instrumentation L2 L4-L5, revision decompression with bilateral foraminotomies L4-L5, kyphoplasty L2 L4 and L5 vertebral bodies, revision fusion L4-L5, L5-S1 -03/07 Epidural space and lumbar fascia OR cultures growing E coli, Morganella, corynebacterium, and staph epidermidis -03/18 s/p I&D w/ Dr. Nova - culture grew Enterococcus faecium VRE and velia albicans -03/26 s/ I&D w/ Dr. Nova, serous fluid noted but no gross purulence per review of op report - Culture from 03/26-VRE ID Recommendations: ..Since the VRE has high BRENDAN >4 for daptomycin, I would recommend starting on oral linezolid 600 mg twice daily. Please continue on IV ceftriaxone and reduce the dose to 2 g once daily. Also, continue on oral fluconazole and increase the dose to 600 mg once daily. Anticipated end date for IV ceftriaxone will be April 28, 2025. For both linezolid and fluconazole, she will likely require to be on them for life if tolerated. Please make sure to send for weekly CBC and CMP for the next 8 weeks after discharge. I would recommend that the patient got the labs done at [facility] so that I can follow up on them closely..." To do: [ ] outpatient f/u of imaging incidentals: small gallstones, simple renal cysts 3cm, enlarged cerebral ventricles. [ ] may need cardiology consult given worsening tachycardia [ ] likely needs ortho spine consult at [facility] [ ] will benefit from palliative care consultation at [facility] given prolonged hospitalization with declining condition and guarded prognosis Medication Changes From Visit -see below Admission HPI Per Admitting Provider This is a 61-year-old female who presents with chronic persistent back and bilateral knee pain after failing course of nonoperative care is here for surgical invention. Discharge Exam Gen: A&O 0 NAD HEENT: NCAT, EOMI, not icteric. External ears normal. No rhinorrhea. Moist mucous membranes. Neck: Supple, full range of motion, no observable masses, No meningeal sign. Lungs: No Respiratory distress. CV: regular rhythm, tachyardic Abdomen: tender to palpation mildly throughout abdomen MSK: No joint swelling, no redness. Skin: No rashes, petechiae, lesions. Normal color per patient. Neuro: confused, opens eyes and moves extremities Updated Medication List Medication Instructions Recorded Confirmed Type amlodipine 5 mg tablet 5 mg PO BID 01/31/25 02/25/25 History ascorbic acid (vitamin C) 500 mg 500 mg PO DAILY 01/31/25 02/25/25 History tablet (Vitamin C) cholecalciferol (vitamin D3) 25 25 mcg PO DAILY 01/31/25 02/25/25 History mcg (1,000 unit) capsule (Vitamin D3) etanercept 50 mg/mL (1 mL) 50 mg subcut WK 01/31/25 02/25/25 History subcutaneous cartridge (Enbrel Mini) hydrochlorothiazide 25 mg tablet 25 mg PO QAM 01/31/25 02/25/25 History leflunomide 10 mg tablet 10 mg PO QAM 01/31/25 02/25/25 History magnesium 200 mg tablet 200 mg PO DAILY 01/31/25 02/25/25 History multivitamin 1 tab PO DAILY 01/31/25 02/25/25 History omega-3 fatty acids 1,000 mg PO DAILY 01/31/25 02/25/25 History potassium chloride 10 mEq 20 meq PO QAM 01/31/25 02/25/25 History tablet,extended release (Klor-Con) spironolactone 25 mg tablet 25 mg PO QAM 01/31/25 02/25/25 History zolpidem 10 mg tablet 10 mg PO HS PRN prn 01/31/25 02/25/25 History aspirin 81 mg tablet 81 mg PO DAILY 02/28/25 02/28/25 History rifampin 300 mg capsule 300 mg PO BID #60 caps 03/15/25 Rx cyanocobalamin (vitamin B-12) 500 500 mcg PO QAM #30 tabs 04/08/25 Rx mcg tablet linezolid 600 mg tablet 600 mg PO BID #30 tabs 04/08/25 Rx metoprolol succinate 25 mg 25 mg PO BID #30 tabs 04/08/25 Rx tablet,extended release 24 hr thiamine HCl (vitamin B1) 100 mg 200 mg (2 x 100 mg) PO TODAY@0900 04/08/25 Rx tablet #30 tabs Hospital Stay Data Consultations 02/25/25 14:54 Consult Hospitalist Routine 03/08/25 10:17 Consult Infectious Diseases Routine 03/21/25 08:06 Consult Nephrology Routine 03/25/25 09:11 Consult Infectious Diseases Routine 04/04/25 10:12 Consult Neurology Routine 04/08/25 06:33 Consult Gastroenterology Routine 04/08/25 16:52 Burn CD for patient Stat Procedures Performed Operation Date: 03/26/25 10:45 Actual Procedures p Incision and Drainage Lumbar Spine with Placement of Antibiotic Beads; Application of PAULA Drain(Not Applicable) - Adriel Nova DO Diagnostic Imagining Performed 02/25/25 06:00 FL lumbar spine 2-3V Routine 03/04/25 11:06 MR lumbar spine wo con Urgent 03/05/25 08:13 CT lumbar spine wo con Urgent 03/06/25 23:35 CT head/brain wo con Stat 03/07/25 07:45 FL lumbar spine 2-3V Routine 03/12/25 08:41 CT angio chest PE protocol Stat 03/12/25 13:05 US venous doppler LE BI Routine 03/16/25 20:56 CT head/brain wo con Stat 03/16/25 21:16 CT Abd and Pelvis [CT abd pelvis IV con only] Stat 03/17/25 15:32 CT head/brain wo con Urgent 03/24/25 07:21 MR brain wo con Urgent 03/27/25 15:09 CT head/brain wo con Urgent 03/29/25 11:59 CT head/brain wo con Urgent 04/05/25 02:00 MR brain wo con Routine 04/06/25 23:47 CT head/brain wo con Stat 04/07/25 12:44 US Renal Bladder [US renal/blad retro comp] Routine 04/08/25 05:53 MR lumbar spine wo con Urgent 04/08/25 07:32 CT Abd and Pelvis [CT abd pelvis IV con only] Urgent 04/08/25 12:41 CT chest diagnostic w con Urgent Pending Results Patient Have Any Pending Studies at Discharge: No Discharge Instructions Given to Patient (Per Discharging Provider) 1. Transfer to [facility]. 2. Imaging incidentals: small gallstones, simple renal cysts 3cm, enlarged cerebral ventricles. ACTIVITY RECOMMENDATIONS: SELF CARE INSTRUCTIONS AFTER THORACIC/LUMBAR FUSIONS 1. You may walk to your tolerance. It is good exercise for your legs and back. Expect some back and intermittent leg aches and pains. 2. You may perform "counter-top" level activities (make a sandwich, kylee with a project, etc.). 3. No bending or lifting of more than 10 pounds or back twisting of any nature (roll like a log when turning in bed). 4. You may ride in a car for 20-30 minutes at a time. No driving until after your first visit with your doctor. 5. Frequent changes of position and restricting sitting to 30 minutes at a time will help limit the amount of back spasms and stiffness you may experience. 6. You may discontinue the use of ambulatory aids (cane, crutches, etc.) once your strength and confidence allow. 7. You may coating and embossing unit operator the shower and let water strike your incision when you arrive home at least once daily. Do not take a tub bath, sit in a hot tub or go into a swimming pool until after your first recheck in the office. 8. You may resume previous diet. SPECIAL CARE INSTRUCTIONS: VERY IMPORTANT TO READ AND REVIEW A. Your surgical incision has been closed with a cosmetic suture under the skin that will dissolve in about 6 weeks. In 14 days, you can use a pair of clean scissors and cut the suture that is left outside of the skin at the ends of your incision. 1. The small skin tapes can be removed 7 days after surgery if they have not fallen off by that point. 2. You may keep the wound open to air as much as possible to promote healing after post-op day number 5 unless told otherwise by your doctor. 3. If you think the wound looks like it is becoming infected (redness or worsening drainage) and/or you are experiencing fever, chill or worsening back pain and muscle spasms, contact the office so that we may evaluate you as soon as possible. B. Complications are uncommon, but please contact us if you have any signs or symptoms of: 1. wound infection (fever higher than 102.5 degrees F, redness, separation of wound, drainage, or increasing pain from the incision) 2. blood clots in legs (pain, swelling, redness and warmth in legs) 3. urinary tract infection (fever higher than 102.5 degrees F, burning upon urination or increased frequency of urination) 4. nerve problems (inability to walk on your toes or heels, numbness, loss of bowel or bladder control) 5. any other symptoms that concern you C. Please call the office at if you have any concerns or questions about your operation or recovery. D. No smoking! Smoking drastically decreases the chance of a solid fusion. E. Do not take any anti-inflammatory medications (Indocin, Advil, Motrin, Aspirin, Naprosyn, etc.) as these may inhibit the chance of a solid fusion. Tylenol is okay to take for pain. MANAGING PAIN AFTER SPINAL SURGERY 1. Narcotic medication is intended for short-term use and will be provided for surgical pain. Surgical pain usually lasts for a period of 4-6 weeks. Narcotic medication includes Percocet, Vicodin, Darvocet, Tylenol #3 or Lortab. 2. Longer-term pain is more appropriately treated with non-narcotic medication such as Tylenol ES. 3. Muscle spasm is not appropriately treated with narcotics. Muscle relaxers such as Soma, Flexeril or Skelaxin can be used along with Tylenol ES. 4. Remember that we all live with some "aches and pains". This is not unusual or uncommon after an injury or as we get older. a. Back pain is expected and may include muscle spasms for 4 to 6 weeks after surgery. The pain should gradually improve. If the pain worsens for no apparent reason, please contact the office. b. Intermittent leg pain may also be experienced and should not be concerned about unless it worsens for no apparent reason. If so, please contact the office. 5. We will provide appropriate medication within the normal guidelines of their prescribed use. We will also be very cautious and aware of potential abuse and extended duration of patients' medication needs. a. Pain medications are for your comfort and to assist with sleep and rest so that the tissue can heal. They are not provided in order to return to normal activity and should not be used through the day. To do so or worsening pain at night can result from ongoing tissue damage and development of tolerance to the prescribed medicine. 6. Please allow 2-3 days to process refills. Prescriptions will not be mailed but must be picked up at the office. FOLLOW UP VISIT: Keep your scheduled follow-up appointment. Any questions, please call the office at . Hospitalist Instructions: You were found to have high potassium levels in your blood while in the hospital. Therefore, we discontinued your potassium supplements. You should continue taking your diuretics and follow up with your PCP for lab monitoring to check your electrolyte levels. Total Time Total Time Spent Total Time Spent (In Minutes): I spent a total of 70 minutes in direct patient care, including [id number] time with the patient and/or family, reviewing medical records, ordering and reviewing diagnostic tests, and coordinating care with other healthcare providers. This time includes: history taking, physical examination, medical decision making, counseling, ECG interpretation, imaging interpretation, lab interpretation, orders, and education, excluding time spent in the performance of separately billed services.
[2025-04-08] MEDS ORDERED: VANCOMYCIN CONSULT ACTIVE PRN (17:30)
[2025-04-08] MEDS: LACTATED RINGER'S 1,000 ML IV SCH (17:40)
[2025-04-08] MEDS: VANCOMYCIN HCL 1,750 MG in SODIUM CHLORIDE 0.9% 500 ML IV STA (18:06)
[2025-04-08] MEDS: MEROPENEM 500 MG in SYRINGE 0 ML IV SCH (18:20)
[2025-04-08 18:21] LABS: Base Excess VBG -4.4 mEq/L; HCO3 VBG 20 mmol/L; Oxygen Saturation VBG 66.6 %; PCO2 VBG 35 mmHg (38-50); PO2 VBG 41 mmHg; pH VBG 7.37 (7.36-7.41)
[2025-04-08 18:23] LABS: Hematocrit (blood only) 25.5 % (37.0-47.0); Hemoglobin 8.2 g/dl (12.0-16.0)
--- NOTE | 2025-04-08 18:27 | CT Scan Report ---
CT CHEST WITH CONTRAST: HISTORY: TECHNIQUE: CT of the chest was obtained with intravenous contrast. Coronal and sagittal reformats were created. IV CONTRAST: 100 mL of OMNIPAQUE 300 COMPARISON: Thoracic CT March 12, 2025. Chest radiograph on the previous FINDINGS: LOWER NECK: Subcentimeter thyroid nodules. LYMPH NODES: A few small nonenlarged lymph nodes in the mediastinum. No lymphadenopathy by size criteria. CARDIOVASCULAR: Cardiac size is mildly enlarged. No right heart strain. Coronary artery calcifications are noted. No aortic aneurysm. Limited evaluation of the pulmonary arteries with poor contrast loading past the distal main pulmonary arteries. No central pulmonary embolism is identified. LUNGS: The trachea and central bronchi are widely patent. No focal confluent infiltrates are seen. Interval worsening of the interstitial pulmonary edema, mild. There are no suspicious pulmonary nodules. Tiny calcified pulmonary granulomas PLEURA: There are new small pleural fluids. There is no pneumothorax. UPPER ABDOMEN: No acute findings. Hepatic steatosis and hepatomegaly. Hiatal hernia. OSSEOUS STRUCTURES: No acute findings IMPRESSION: Limited evaluation of the pulmonary arteries with poor contrast loading past the distal main pulmonary arteries. No central pulmonary embolism is identified. Mild cardiomegaly without right heart strain. New small pleural fluids and mild interstitial pulmonary edema. No focal consolidation. Electronically signed by Wallace Soto 04-08-2025 6:25 PM
[2025-04-08 18:31] LABS: Anion Gap 10.0 (3-11); Blood Urea Nitrogen 25.0 mg/dl (6-23); Calcium 9.4 mg/dl (8.6-10.3); Carbon Dioxide 20.0 mmol/L (21-32); Chloride 111.0 mmol/L (98-107); Creatinine Clr Calc Pharmacy 53.6 ml/min; Glucose 68.0 mg/dl (70-99(Fasting)); Magnesium 1.8 mg/dl (1.7-2.4); Potassium 3.8 mmol/L (3.5-5.1); Sodium 141.0 mmol/L (136-145)
[2025-04-09] MEDS ORDERED: CYANOCOBALAMIN (B-12) 500 MCG TABLET PO SCH (09:00)
--- NOTE | 2025-04-09 14:58 | Electrocardiogram Report ---
Test Reason : Blood Pressure : */* mmHG Vent. Rate : 143 BPM Atrial Rate : 143 BPM P-R Int : 184 ms QRS Dur : 64 ms QT Int : 250 ms P-R-T Axes : 53 -19 53 degrees QTcB Int : 385 ms Sinus tachycardia Low voltage QRS Inferior infarct (cited on or before 08-Apr-2025) Abnormal ECG When compared with ECG of 08-Apr-2025 12:57, Premature ventricular complexes are no longer Present Confirmed by Evangelista Saha ([id number]) on 04/09/2025 2:57:48 PM Referred By: Adriel Nova Confirmed By: Evangelista Saha
[2025-04-09] MEDS ORDERED: PANTOprazole 40 MG/10 ML SYR IV SCH (21:00)
== END 2025-04-08 20:09 | disposition short-term general hospital (02) | DRG 426 ==
LOC: ASU 06:29 → 3W 14:51 → 2N 03-12 15:33 → 2E 03-17 13:29